=== PATIENT | female | born 1980 | race Caucasian/White ===

== ENCOUNTER 2018-02-10 16:59 | Emergency (ER) | payer OTHER ==
[~2018-02-10] VITALS: Ht 162.6 cm; Wt 70.2 kg
[~2018-02-10 16:59] MED LIST: B-COCAP2 PO; MECL-72 PO; [UNRECOGNIZED DRUG - OTHER] PO
[2018-02-10 17:13] VITALS: Ht 162.6 cm; Wt 70.2 kg
[2018-02-10] MEDS ORDERED: CEFTRIAXONE SOD INJ 1 GM ADDVIAL IV STA (17:59)
[2018-02-10] MEDS ORDERED: MoRPHine SULFATE 4 MG/ML 1 ML CARP\\VIAL IV STA (17:59)
[2018-02-10] MEDS ORDERED: ACETAMINOPHEN 500 MG TAB PO STA (17:59)
[2018-02-10] MEDS ORDERED: METOCLOPRAMIDE HCL INJ 5 MG/ML 2 ML VIAL IV. STA (17:59)
[2018-02-10] MEDS ORDERED: SODIUM CHLORIDE 0.9% 1000ML 1,000 ML IV STA ×2 (17:59→18:33)
--- NOTE | 2018-02-10 18:09 | EMERGENCY ROOM VISIT NOTE ---
History Report prepared by Kinjal: Roberto Stearns Under the Supervision of: Dr. Preet Hooker M.D. First contact with patient: 17:50 Chief Complaint: FLANK PAIN Stated Complaint: 22WKS , DX WITH KIDNEY INFECTION, SX WORSE History of Present Illness The patient is a 37 year old white female with a past medical history of anxiety , migraines, gall blader surgery and a current of 22 weeks who presents to the ED with a cc of constant right flank pain beginning 2-3 days ago which is described as a sharp pain which is relieved with Tylenol. Positive nausea and vomiting. Negative recent trauma, recent falls, recent heavy lifting , recent strain, and vaginal bleeding. She is taking vitamins, and she had a recent normal Ultrasound. This is her third , and she has two living children. She was seen at her [facility] recently and was put on Cipro. No prior C-sections. Source of History: patient Onset: 2-3 days ago Position: other (right flank) Quality: sharp Timing: constant Modifying Factors (Relieving): tylenol Associated Symptoms: + nausea, + vomiting Review of Systems See HPI for pertinent positives and negatives. A total of ten systems were reviewed and were otherwise negative. Past Medical & Surgical Medical Problems: (1) Anxiety (2) Migraine Family History Diabetes mellitus Heart disease Hypertension Seizures Social History Smoking Status: Never Smoker Drug Use: none Marital Status: Housing Status: lives with family Current/Historical Medications Scheduled Multivit/Min/Iron/Fol Ac/Pren ( Vitamin), 1 TAB PO DAILY Scheduled PRN Metoclopramide (Reglan), 10 MG PO Q6H PRN for Nausea Allergies Coded Allergies: Tramadol (Verified Allergy, Severe, SEIZURES, 04/02/14) Physical Exam Vital Signs Date Time Temp Pulse Resp B/P (MAP) Pulse Ox O2 Delivery O2 Flow Rate FiO2 02/10/18 20:58 36.9 112 16 109/72 100 02/10/18 20:55 112 16 109/72 100 Room Air 02/10/18 20:11 105 27 109/69 98 Room Air 02/10/18 19:18 103 02/10/18 19:00 106 20 118/73 96 Room Air 02/10/18 17:13 36.9 117 18 98/69 96 Room Air Physical Exam GENERAL: Awake, alert, well-appearing, NAD, wearing glasses HENT: Normocephalic, atraumatic. EYES: Normal conjunctiva. Sclera non-icteric. PERRL. No anisocoria. NECK: Supple. No nuchal rigidity. FROM. RESPIRATORY: CTAB, no rhonchi, wheezing, crackles CARDIAC: RRR, no MRG ABDOMEN: Right sided CVA TTP. Fundal height is superior to the umbilicus. Negative obturator and psoas. Soft, NTND, BS+ MSK: No chest wall TTP, no LE edema NEURO: GCS 15, CN 2-12 intact, moves all 4s on command SKIN: No rash or jaundice noted. Medical Decision & Procedures ER Provider Diagnostic Interpretation: Radiology results as stated below per my review and radiologist interpretation: RENAL ULTRASOUND CLINICAL HISTORY: R sided flank pain, , hematuria, dysuria COMPARISON STUDY: CT of the abdomen and pelvis June 01, 2010 and right upper quadrant ultrasound February 04, 2011. TECHNIQUE: Sonography of the kidneys and the urinary bladder was performed. FINDINGS: The right kidney measures 12 x 5.5 x 5.4 cm and the left kidney measures 10.9 x 5.6 x 5.3 cm. There is no hydronephrosis. A 5 mm echogenic focus within the right kidney could reflect a nonobstructing calculus. However, this could be artifactual. Neither ureteral jet was identified. The bladder was underdistended. Intrauterine gestation was noted with heart rate of 153 bpm. Please note that a dedicated ultrasound was not performed. IMPRESSION: 1. No hydronephrosis. 2. Possible 5 mm nonobstructing right renal calculus. 3. Normal heart rate of 153 bpm. Please note that a dedicated ultrasound was not performed. Electronically signed by: Remi Arizmendi M.D. 02/10/2018 8:03 PM Dictated Date/Time: 02/10/2018 8:01 PM Laboratory Results 02/10/18 18:22 Red Blood Count 3.43, Mean Corpuscular Volume 97.4, Mean Corpuscular Hemoglobin 33.5, Mean Corpuscular Hemoglobin Concent 34.4, Mean Platelet Volume 9.2, Neutrophils (%) (Auto) 85.5, Lymphocytes (%) (Auto) 6.0, Monocytes (%) (Auto) 8.1, Eosinophils (%) (Auto) 0.0, Basophils (%) (Auto) 0.1, Neutrophils # (Auto) 11.65, Lymphocytes # (Auto) 0.82, Monocytes # (Auto) 1.11, Eosinophils # (Auto) 0.00, Basophils # (Auto) 0.02 02/10/18 18:22 Test 02/10/18 18:22 02/10/18 18:40 White Blood Count 13.64 K/uL (4.8-10.8) Red Blood Count 3.43 M/uL (4.2-5.4) Hemoglobin 11.5 g/dL (12.0-16.0) Hematocrit 33.4 % (37-47) Mean Corpuscular Volume 97.4 fL (80-100) Mean Corpuscular Hemoglobin 33.5 pg (25-34) Mean Corpuscular Hemoglobin Concent 34.4 g/dl (32-36) Platelet Count 296 K/uL (130-400) Mean Platelet Volume 9.2 fL (7.4-10.4) Neutrophils (%) (Auto) 85.5 % Lymphocytes (%) (Auto) 6.0 % Monocytes (%) (Auto) 8.1 % Eosinophils (%) (Auto) 0.0 % Basophils (%) (Auto) 0.1 % Neutrophils # (Auto) 11.65 K/uL (1.4-6.5) Lymphocytes # (Auto) 0.82 K/uL (1.2-3.4) Monocytes # (Auto) 1.11 K/uL (0.11-0.59) Eosinophils # (Auto) 0.00 K/uL (0-0.5) Basophils # (Auto) 0.02 K/uL (0-0.2) RDW Standard Deviation 48.7 fL (36.4-46.3) RDW Coefficient of Variation 13.7 % (11.5-14.5) Immature Granulocyte % (Auto) 0.3 % Immature Granulocyte # (Auto) 0.04 K/uL (0.00-0.02) Anion Gap 8.0 mmol/L (3-11) Est Creatinine Clear Calc Drug Dose 106.3 ml/min Estimated GFR () 128.0 Estimated GFR (Non- 110.4 BUN/Creatinine Ratio 16.2 (10-20) Calcium Level 8.7 mg/dl (8.5-10.1) Total Bilirubin 0.6 mg/dl (0.2-1) Direct Bilirubin 0.2 mg/dl (0-0.2) Aspartate Amino Transf (AST/SGOT) 13 U/L (15-37) Alanine Aminotransferase (ALT/SGPT) 18 U/L (12-78) Alkaline Phosphatase 86 U/L (45-117) Total Protein 7.5 gm/dl (6.4-8.2) Albumin 2.9 gm/dl (3.4-5.0) Lipase 255 U/L (73-393) Human Chorionic Gonadotropin, Qual POS (NEG) Urine Color DK YELLOW Urine Appearance CLEAR (CLEAR) Urine pH 5.0 (4.5-7.5) Urine Specific [place] 1.044 (1.000-1.030) Urine Protein TRACE (NEG) Urine Glucose (UA) NEG (NEG) Urine Ketones 1+ (NEG) Urine Occult Blood 3+ (NEG) Urine Nitrite POS (NEG) Urine Bilirubin NEG (NEG) Urine Urobilinogen NEG (NEG) Urine Leukocyte Esterase SMALL (NEG) Urine WBC (Auto) 10-30 /hpf (0-5) Urine RBC (Auto) 5-10 /hpf (0-4) Urine Hyaline Casts (Auto) /lpf (0-5) Urine Epithelial Cells (Auto) >30 /lpf (0-5) Urine Bacteria (Auto) NEG (NEG) Urine Renal Epithelial Cells /lpf (0-5) Urine Pathogenic Casts /lpf (0) Urine Yeast (Auto) (NONE PRSENT) Laboratory results reviewed by me Medications Administered Medications (Trade) Dose Ordered Sig/Hodan Route Start Time Stop Time Status Last Admin Dose Admin Sodium Chloride 1,000 ml @ 999 mls/hr Q1H1M STAT IV 02/10/18 17:59 02/10/18 18:59 DC 02/10/18 18:44 999 MLS/HR Acetaminophen (Tylenol Tab) 1,000 mg NOW STAT PO 02/10/18 17:59 02/10/18 18:00 DC 02/10/18 18:45 1,000 MG Metoclopramide HCl (Reglan Inj) 10 mg NOW STAT IV. 02/10/18 17:59 02/10/18 18:00 DC 02/10/18 18:44 10 MG Ceftriaxone Sodium (Rocephin Inj) 1 gm NOW STAT IV 02/10/18 17:59 02/10/18 18:00 DC 02/10/18 18:44 1 GM Morphine Sulfate (MoRPHine SULFATE INJ) 4 mg NOW STAT IV 02/10/18 17:59 02/10/18 18:00 DC 02/10/18 18:44 4 MG Sodium Chloride 1,000 ml @ 999 mls/hr Q1H1M STAT IV 02/10/18 18:33 02/10/18 19:33 DC 02/10/18 18:45 999 MLS/HR Sodium Chloride 500 ml @ 999 mls/hr Q31M STAT IV 02/10/18 20:21 02/10/18 20:51 DC 02/10/18 20:21 999 MLS/HR ECG Per My Interpretation Indication: abdominal pain Rate (beats per minute): 108 Findings: T-wave inversion (lead 3), other (normal intervals and normal axis) ED Course 1750: The patient was evaluated in room C5. A complete history and physical exam was performed. 1949: Her pain has improved. 2001: I discussed the patient's case with Dr. Mckee - EDGER MACHINE OPERATOR, and he recommended outpatient follow uo, and to call for a follow up appointment tomorrow. 2018: She is feeling better, and she is a little tachycardic. She is going to get more fluids then go home. Medical Decision Nursing notes reviewed. Ancillary studies and prior records reviewed. The patient is a 37 year old white female with a past medical history of anxiety , migraines, gall blader surgery and a current of 22 weeks who presents to the ED with a cc of constant right flank pain beginning 2-3 days ago which is described as a sharp pain which is relieved with Tylenol. Differential diagnosis: Etiologies such as appendicitis, diverticulitis, PUD, biliary pathology, UTI, pancreatitis, obstruction, mesenteric ischemia, aortic pathology, infections, inflammatory bowel disease, renal colic, as well as others were entertained. Patient was seen and evaluated the bedside. Patient is currently 22 weeks and this is her third . Patient was seen and evaluated in OB clinic yesterday. The patient was prescribed Cipro for a presumed kidney infection. The patient has had persistent right-sided flank pain. Patient is also had associated nausea and vomiting. On exam the patient does have right-sided CVA TTP. The patient does not have any abdominal discomfort. Fundal height is above the umbilicus. Patient did have blood work completed along with EKG, urinalysis. Patient was also given medications for symptom control. Patient's blood work shows a mild white count of 13,000 with a left shift. Patient has normal kidney function. No elevations in LFTs or lipase. Lecture lites are within normal limits. Patient's urinalysis is consistent likely with infection. Patient was given Rocephin IV. Given the patient's blood in the urine I did obtain an ultrasound to further evaluate the kidneys. There is no hydronephrosis there is a likely 5 mm nonobstructing stone within the kidney. I did explain the findings to the patient and the family member at bedside. The heart tones were noted to be in the 150s. Patient also did receive IV fluids as well as antiemetics and pain control. Patient was feeling much improved. The patient looked much improved. Patient still had some mild tachycardia. She was given an additional 500 cc bolus. We did discuss about continuing clear liquids bland diet and to follow-up with OB/ [facility]. Patient was instructed to make a phone call tomorrow for a follow-up appointment. I did discuss case with the on-call EDGER MACHINE OPERATOR who agreed with the current management plan of care. Patient was deemed suitable for outpatient follow-up treatment at this time. Patient was given strict follow-up, discharge, and return precautions. All questions were answered. Patient was deemed suitable for outpatient follow-up at this time. Patient agreed with the plan of care and was safely discharged home. Medication Reconcilliation Current Medication List: was personally reviewed by me Blood Pressure Screening Patient's blood pressure: Normal blood pressure Consults Time Called: 1950 Consulting Physician: Dr. Mckee - EDGER MACHINE OPERATOR Returned Call: 2001 I discussed the patient's case with Dr. Mckee - EDGER MACHINE OPERATOR, and he recommended outpatient follow uo, and to call for a follow up appointment tomorrow. Impression Primary Impression: Pyelonephritis Additional Impressions: Right flank pain Anemia Scribe Attestation The scribe's documentation has been prepared under my direction and personally reviewed by me in its entirety. I confirm that the note above accurately reflects all work, treatment, procedures, and medical decision making performed by me. Departure Information Dispostion Home / Self-Care Prescriptions Metoclopramide (Reglan) 10 Mg Tab 10 MG PO Q6H Y for Nausea, #9 TAB Prov: Preet Hooker M.D. 02/10/18 Referrals Peterson Lr M.D. (PCP) Patient Instructions My [facility], Pyelonephritis Dc Additional Instructions Please return to the emergency department if you have worsening or recurrent symptoms not amenable to at-home treatment. Please call for a follow-up appointment with her primary care physician. Please take your medications as prescribed. If you have other concerns and/or complaints please feel free to also call your primary care physician's office or return the ED for further evaluation, management, and treatment. You received narcotic or benzodiazepene medication while in the emergency room today. This is an addictive medication that may cause drowziness as well as constipation. Do not drive, operate heavy machinery, or drink alcohol under the influence of this medication. You may take tylenol 1000 mg every 6 hours as needed for pain/fever unless told by your physician to not take it or have liver problems. For your nausea you may take the meclizine, Reglan, or Benadryl. Please take one at a time. Please call the EDGER MACHINE OPERATOR office for a follow-up appointment. Please state that he was seen in the emergency department and that after discussion between the ER physician and Dr. Mckee they wanted you to have a follow-up appointment later this week if possible. Take your medications as prescribed. If taking an antibiotic consider taking a probiotic and/or eating yogurt, but at the least, please take with food as it can cause upset stomach. You have been examined and treated today on an emergency basis only. This is not a substitute for, or an effort to provide, complete comprehensive medical care. It is impossible to recognize and treat all injuries or illnesses in a single emergency department visit. It is therefore important that you follow up closely with [facility], your PCP, and/or your specialist(s). Call as soon as possible for an appointment. Thank you for your time and consideration. I look forward to speaking with you again soon. Please don't hesitate to call us if you have any questions. Problem Qualifiers Additional Impressions: Weeks of gestation: 22 weeks Qualified Codes: Z3A.22 - 22 weeks gestation of Anemia Anemia type: unspecified type Qualified Codes: D64.9 - Anemia, unspecified
[2018-02-10] MEDS ORDERED: PRENTAB26 PO (18:10)
[2018-02-10 18:57] LABS: BASO % 0.1 %; BASO ABS # 0.02 K/uL (0-0.2); HEMATOCRIT 33.4 % (37-47); HEMOGLOBIN 11.5 g/dL (12.0-16.0); IG# 0.04 K/uL (0.00-0.02); LYMPH ABS # 0.82 K/uL (1.2-3.4); MEAN CELL VOLUME 97.4 fL (80-100); MEAN CORPUSCULAR HEMOGLOBIN 33.5 pg (25-34); MEAN CORPUSCULAR HGB CONC 34.4 g/dl (32-36); MEAN PLATELET VOLUME 9.2 fL (7.4-10.4); MONO % 8.1 %; MONO ABS # 1.11 K/uL (0.11-0.59); NEUT % 85.5 %; NEUT ABS # 11.65 K/uL (1.4-6.5); PLATELET COUNT 296 K/uL (130-400); RED CELL DISTRIBUTION WIDTH CV 13.7 % (11.5-14.5); RED CELL DISTRIBUTION WIDTH SD 48.7 fL (36.4-46.3); WHITE BLOOD COUNT 13.64 K/uL (4.8-10.8)
[2018-02-10 19:16] LABS: ALBUMIN 2.9 gm/dl (3.4-5.0); CALCIUM 8.7 mg/dl (8.5-10.1); CREATININE 0.69 mg/dl (0.60-1.20); POTASSIUM 3.5 mmol/L (3.5-5.1); TOTAL PROTEIN 7.5 gm/dl (6.4-8.2)
--- NOTE | 2018-02-10 20:04 | DIAGNOSTIC IMAGING REPORT ---
RENAL ULTRASOUND CLINICAL HISTORY: R sided flank pain, , hematuria, dysuria COMPARISON STUDY: CT of the abdomen and pelvis June 01, 2010 and right upper quadrant ultrasound February 04, 2011. TECHNIQUE: Sonography of the kidneys and the urinary bladder was performed. FINDINGS: The right kidney measures 12 x 5.5 x 5.4 cm and the left kidney measures 10.9 x 5.6 x 5.3 cm. There is no hydronephrosis. A 5 mm echogenic focus within the right kidney could reflect a nonobstructing calculus. However, this could be artifactual. Neither ureteral jet was identified. The bladder was underdistended. Intrauterine gestation was noted with heart rate of 153 bpm. Please note that a dedicated ultrasound was not performed. IMPRESSION: 1. No hydronephrosis. 2. Possible 5 mm nonobstructing right renal calculus. 3. Normal heart rate of 153 bpm. Please note that a dedicated ultrasound was not performed. Electronically signed by: Remi Arizmendi M.D. 02/10/2018 8:03 PM Dictated Date/Time: 02/10/2018 8:01 PM
[2018-02-10] MEDS ORDERED: SODIUM CHLORIDE 0.9% 500ML 500 ML IV STA (20:21)
[2018-02-10] MEDS ORDERED: METO-157 PO (20:39)
[2018-02-10 20:58] VITALS: BP 109/72; PULSE 112; TEMP 36.9; O2SAT 100
== END 2018-02-10 20:58 | disposition home or self-care (01) ==
LOC: C.EDB 17:00 → C.EDC 20:58
DX: O23.02 Infections of kidney in pregnancy, second trimester (principal); O99.012 Anemia complicating pregnancy, second trimester; O99.112 Other diseases of the blood and blood-forming organs and certain disorders involving the immune mechanism complicating pregnancy, second trimester; Z3A.22 22 weeks gestation of pregnancy; Z88.6 Allergy status to analgesic agent

== ENCOUNTER 2020-06-12 11:19 | Inpatient (IN) ==
--- OUTSIDE RECORDS SUMMARY | 2020-06-12 11:22 | External Medical Summary | Continuity of Care Document ---
:1980 Author Name Ced Quiroz, Provider Address Unavailable Unavailable , Care Team Providers Name Role Phone Guicho Quiroz, Nader Whitman Unavailable [email or web address], [email or web address] Unavailable Unavailable Unavailable Unavailable Unavailable Problems Acute cholecystitis (575.0) (K81.0) Allergies and Adverse Reactions Allergy history not documented Medications Hydrocodone-Acetaminophen 5-500 MG TABS; TAKE 1 TO 2 TABLETS EVERY 6 HOURS NEEDED FOR PAIN. Gabriella Lindo Start: 07-Feb-2011 Quantity: 30 Refills: 0 Procedures Procedures not documented Immunizations Immunizations not documented Plan of Treatment Planned Observations Planned Goals not documented Results No Known Results Results not documented Encounters Appointment; Zachariah [email or web address], Nursing Station 19-Aug-2018 14:00 Encounter Diagnosis: Problem not documented
[2020-06-12] MEDS ORDERED: LORazepam 0.5 MG/1 ML VIAL IV STA (11:38)
[2020-06-12] MEDS ORDERED: LABETALOL HCL IV 5 MG/ML 20ML IV STA ×3 (11:38→13:33)
[2020-06-12] MEDS ORDERED: ACETAMINOPHEN 500 MG TAB PO STA (11:38)
--- NOTE | 2020-06-12 11:43 | Emergency Department Note ---
Impression & Plan Hypertension, Hypokalemia, Tachycardia, Hypomagnesemia, Acute dehydration ED Provider Note NAME: CHAD BAUM AGE: 39 SEX: F : 1980 ARRIVES VIA: Walk-In INFORMANT: [Patient] ED PROVIDER(S): [Lonnie Lee MD] CHIEF COMPLAINT: Shaky, high blood pressure HISTORY OF PRESENT ILLNESS: The patient is a 39-year-old female who presents to the ED with complaints of fatigue, shakiness, hot flashes, sweats and dizziness. The patient states that for months, she has had episodes like mentioned above. The numbers of episodes have been increasing. She had an episode yesterday, she started with an episode this morning that has been ongoing throughout the day. She has had several hours of symptoms now. She went to [facility] and was referred to the ED. Her blood pressure was high at [facility]. Patient denies any chest pain or shortness of breath. There has been no fever or urinary complaints. No vomiting or diarrhea. The patient does not have any diagnosis of high blood pressure. She was told that her pressure was high at her doctor's office and that she should come to the ED as it was a critical value. REVIEW OF SYSTEMS: See HPI for pertinent positives and negatives. A total of ten systems were reviewed and were otherwise negative. PMHx/PSHx: See Below SOCIAL HISTORY: See Below. PHYSICAL EXAM: GENERAL: Patient is in no acute distress. HEENT: No acute trauma, normocephalic atraumatic, mucous membranes moist, no nasal congestion, no scleral icterus. NECK: No stridor, no adenopathy, no meningismus, trachea is midline. LUNGS: Clear to auscultation bilaterally, no wheeze, no rhonchi, breath sounds equal. HEART: Tachycardic, regular rhythm, no murmurs. ABDOMEN: Soft, nontender, bowel sounds positive, no hernias, no peritonitis. EXTREMITIES: No cyanosis or edema, full range of motion of all the joints without pain or difficulty, no signs for acute trauma. NEUROLOGIC: Oriented x 3, no acute motor or sensory deficits, no focal weakness. Extremity tremor noted. SKIN: No rash, no jaundice, no diaphoresis. DIFFERENTIAL DIAGNOSIS: Infection, dehydration, metabolic abnormality, hypo/hyperglycemia, hyperthyroidism, hypertensive emergency, sepsis, bacteremia, electrolyte disturbance, anemia, hypoxia, cardiac sources, intracerebral event, toxicologic, neurologic, as well as other pathologies. EMERGENCY DEPARTMENT COURSE/PROCEDURES: ECG: Indication was tachycardia. The ECG shows a sinus tachycardia with a rate of [address] depression in a few of the anterior and lateral leads. This ST change appears nonspecific. There are no PVCs, there is no ST elevation. The QTc is 421. Continuous Cardiac Monitoring: An order was placed for continuous cardiac monitoring. The monitor shows a rate of 96 with normal sinus rhythm. MEDICAL DECISION MAKING: There is no leukocytosis or concerning anemia, in fact, the hemoglobin was actually high at 17. There was a normal platelet count. Potassium was low at 2.9. No kidney failure. Magnesium was low at 1.2. There were a few subtle liver enzyme elevations. The patient appeared to be in a euthyroid state. testing was negative. ECG showed a sinus tachycardia, no acute ischemia. Cardiac enzyme testing x1 is not consistent with acute cardiac injury. Lactic acid level was elevated at 3.7, this could be consistent with infection or possibly dehydration. Chest film did not show pneumonia or CHF. Urinalysis did not show any evidence for infection, some contamination was seen. On my exam, the patient was tachycardic and hypertensive, there were no focal neurologic findings but she did have some extremity tremor. The patient received IV labetalol. She received 3 doses of this medication with some decrease in her heart rate and blood pressure. She received IV saline, 1 L. She was given IV and oral magnesium, she was given IV potassium. She received IV Ativan and oral Tylenol. The patient is still tachycardic and still hypertensive. She does feel better though in general. I do think hospitalization would be warranted to control her blood pressure, to control her tachycardia, to correct her electrolyte imbalance. The patient was told the results of her testing, I did speak with case management. The on-call hospitalist was consulted. Of note, during the end of the patient's ED stay just prior to her transfer upstairs, the patient admitted to the hospitalist that she has been drinking alcohol heavily and that she has not had much to drink in the last couple of days. It was at this point that alcohol withdrawal as a cause her presentation was thought likely. As she does have some small children at home, the manager rn case have been involved and are going to place a referral to [facility]. Past Med/Surg History Medical History Anxiety History of narcotic addiction Migraine Surgical History History of dental surgery History of laparoscopic cholecystectomy Family History (Updated 06/12/20 @ 15:42 by Delicia Cerrato PA-C) Grandfather (Paternal) Diabetes Grandmother (Maternal) Diabetes Social History Smoking Status: Never smoker Second Hand Exposure: No; Do You Dip or Chew Tobacco: No; Tobacco Cessation Education Requested by Patient: No Hx Alcohol Use: Yes Alcohol type: hard liquor Alcohol type Comment: and pt split 1 pint of liquor/week Alcohol Intake Frequency: 4 or More x per/Week Alcohol Intake Frequency Comment: 2-3 alcoholic beverages approx q. other day Hx Substance Use: No Preferred Language: Vietnamese Communication Ability: Effective [employer] Required: No Beliefs That Will Affect Care: None marital status: Current Living Situation: Spouse and Family Feels Safe at Home: Yes Safety Concerns: Feels Safe At This Time Allergies Allergies Allergy/AdvReac Type Severity Reaction Status Date / Time tramadol AdvReac Severe SEIZURES Verified 06/12/20 13:02 Home Meds Home Medications Medication Instructions Recorded Confirmed No Known Home Medications 06/12/20 06/12/20 Results & Data (ED) Vital Signs Vital Signs - 24 hr 06/12/20 11:22 06/12/20 11:33 06/12/20 11:36 Temperature 37.6 C H Temperature Source Oral Pulse Rate 156 H 148 H 135 H Pulse Rate [Left Finger] Pulse Rate from SpO2 Sensor Respiratory Rate 20 35 H 16 Blood Pressure 196/121 H 185/157 H Blood Pressure [Right Arm] Blood Pressure Mean 146 165 Blood Pressure Mean [Right Arm] Pulse Oximetry 100 Oxygen Delivery Method Room Air Sepsis Recent Fever Within 48 Hours No Sepsis New/Unexplained Change in Mental Status N/A Sepsis Action Taken by Nursing No Action Required 06/12/20 11:38 06/12/20 11:40 06/12/20 11:45 Temperature Temperature Source Pulse Rate 140 H 141 H Pulse Rate [Left Finger] 138 H Pulse Rate from SpO2 Sensor Respiratory Rate 22 24 19 Blood Pressure 164/139 H Blood Pressure [Right Arm] 185/157 H Blood Pressure Mean 144 Blood Pressure Mean [Right Arm] 166 Pulse Oximetry 98 Oxygen Delivery Method Sepsis Recent Fever Within 48 Hours Sepsis New/Unexplained Change in Mental Status Sepsis Action Taken by Nursing 06/12/20 11:50 06/12/20 12:00 06/12/20 12:01 Temperature Temperature Source Pulse Rate 128 H 130 H 130 H Pulse Rate [Left Finger] Pulse Rate from SpO2 Sensor Respiratory Rate 23 43 H 25 H Blood Pressure 189/144 H Blood Pressure [Right Arm] Blood Pressure Mean 167 Blood Pressure Mean [Right Arm] Pulse Oximetry Oxygen Delivery Method Sepsis Recent Fever Within 48 Hours Sepsis New/Unexplained Change in Mental Status Sepsis Action Taken by Nursing 06/12/20 12:10 06/12/20 12:20 06/12/20 12:22 Temperature Temperature Source Pulse Rate 112 H 113 H 119 H Pulse Rate [Left Finger] Pulse Rate from SpO2 Sensor 111 H 115 H Respiratory Rate 21 20 24 Blood Pressure 166/133 H Blood Pressure [Right Arm] Blood Pressure Mean 137 Blood Pressure Mean [Right Arm] Pulse Oximetry 98 96 Oxygen Delivery Method Sepsis Recent Fever Within 48 Hours Sepsis New/Unexplained Change in Mental Status Sepsis Action Taken by Nursing 06/12/20 12:26 06/12/20 12:30 06/12/20 12:31 Temperature Temperature Source Pulse Rate 112 H 110 H 110 H Pulse Rate [Left Finger] Pulse Rate from SpO2 Sensor 110 H 109 H 110 H Respiratory Rate 22 25 H 24 Blood Pressure 160/127 H 164/123 H Blood Pressure [Right Arm] Blood Pressure Mean 140 137 Blood Pressure Mean [Right Arm] Pulse Oximetry 99 98 98 Oxygen Delivery Method Sepsis Recent Fever Within 48 Hours Sepsis New/Unexplained Change in Mental Status Sepsis Action Taken by Nursing 06/12/20 12:40 06/12/20 12:45 06/12/20 12:50 Temperature Temperature Source Pulse Rate 114 H 110 H 114 H Pulse Rate [Left Finger] Pulse Rate from SpO2 Sensor 117 H 111 H 118 H Respiratory Rate 18 23 19 Blood Pressure 156/127 H Blood Pressure [Right Arm] Blood Pressure Mean 138 Blood Pressure Mean [Right Arm] Pulse Oximetry 99 96 98 Oxygen Delivery Method Sepsis Recent Fever Within 48 Hours Sepsis New/Unexplained Change in Mental Status Sepsis Action Taken by Nursing 06/12/20 13:00 06/12/20 13:01 06/12/20 13:10 Temperature Temperature Source Pulse Rate 116 H 112 H 106 H Pulse Rate [Left Finger] Pulse Rate from SpO2 Sensor 116 H 109 H 104 H Respiratory Rate 23 23 28 H Blood Pressure 168/128 H Blood Pressure [Right Arm] Blood Pressure Mean 142 Blood Pressure Mean [Right Arm] Pulse Oximetry 99 98 98 Oxygen Delivery Method Room Air Sepsis Recent Fever Within 48 Hours Sepsis New/Unexplained Change in Mental Status Sepsis Action Taken by Nursing 06/12/20 13:15 06/12/20 13:20 06/12/20 13:30 Temperature Temperature Source Pulse Rate 104 H 101 H 100 H Pulse Rate [Left Finger] Pulse Rate from SpO2 Sensor 103 H 101 H 103 H Respiratory Rate 27 H 19 24 Blood Pressure 173/132 H 172/130 H Blood Pressure [Right Arm] Blood Pressure Mean 137 142 Blood Pressure Mean [Right Arm] Pulse Oximetry 98 99 98 Oxygen Delivery Method Sepsis Recent Fever Within 48 Hours Sepsis New/Unexplained Change in Mental Status Sepsis Action Taken by Nursing 06/12/20 13:31 06/12/20 13:38 06/12/20 13:40 Temperature Temperature Source Pulse Rate 98 H 102 H 99 H Pulse Rate [Left Finger] Pulse Rate from SpO2 Sensor 98 H 101 H 101 H Respiratory Rate 23 28 H 18 Blood Pressure 154/124 H Blood Pressure [Right Arm] Blood Pressure Mean 133 Blood Pressure Mean [Right Arm] Pulse Oximetry 98 99 100 Oxygen Delivery Method Sepsis Recent Fever Within 48 Hours Sepsis New/Unexplained Change in Mental Status Sepsis Action Taken by Nursing 06/12/20 13:45 06/12/20 13:46 06/12/20 13:50 Temperature Temperature Source Pulse Rate 106 H 100 H 104 H Pulse Rate [Left Finger] Pulse Rate from SpO2 Sensor 98 H 102 H 107 H Respiratory Rate 18 26 H 23 Blood Pressure 162/120 H Blood Pressure [Right Arm] Blood Pressure Mean 130 Blood Pressure Mean [Right Arm] Pulse Oximetry 100 100 95 Oxygen Delivery Method Sepsis Recent Fever Within 48 Hours Sepsis New/Unexplained Change in Mental Status Sepsis Action Taken by Nursing 06/12/20 14:00 06/12/20 14:01 06/12/20 14:10 Temperature Temperature Source Pulse Rate 101 H 102 H 96 H Pulse Rate [Left Finger] Pulse Rate from SpO2 Sensor 102 H 103 H 96 H Respiratory Rate 17 22 21 Blood Pressure 156/121 H Blood Pressure [Right Arm] Blood Pressure Mean 130 Blood Pressure Mean [Right Arm] Pulse Oximetry 100 99 98 Oxygen Delivery Method Sepsis Recent Fever Within 48 Hours Sepsis New/Unexplained Change in Mental Status Sepsis Action Taken by Nursing 06/12/20 14:15 06/12/20 14:20 06/12/20 14:30 Temperature Temperature Source Pulse Rate 106 H 96 H 108 H Pulse Rate [Left Finger] Pulse Rate from SpO2 Sensor 104 H 96 H 106 H Respiratory Rate 20 26 H 24 Blood Pressure 155/114 H 172/117 H Blood Pressure [Right Arm] Blood Pressure Mean 122 139 Blood Pressure Mean [Right Arm] Pulse Oximetry 100 97 100 Oxygen Delivery Method Sepsis Recent Fever Within 48 Hours Sepsis New/Unexplained Change in Mental Status Sepsis Action Taken by Nursing 06/12/20 14:31 06/12/20 14:40 06/12/20 14:45 Temperature Temperature Source Pulse Rate 103 H 97 H 104 H Pulse Rate [Left Finger] Pulse Rate from SpO2 Sensor 103 H 98 H 104 H Respiratory Rate 18 23 23 Blood Pressure 149/118 H Blood Pressure [Right Arm] Blood Pressure Mean 123 Blood Pressure Mean [Right Arm] Pulse Oximetry 99 100 98 Oxygen Delivery Method Sepsis Recent Fever Within 48 Hours Sepsis New/Unexplained Change in Mental Status Sepsis Action Taken by Alf Medications Current Medication List: was personally reviewed by me Laboratory Data Attestation: I reviewed the patient's lab results. Result diagrams: 06/12/20 11:46 06/12/20 15:35 Lab Results 06/12/20 06/12/20 06/12/20 Range/Units 11:46 11:46 11:46 WBC 10.05 (4.8-10.8) K/uL RBC 4.75 (4.2-5.4) M/uL Hgb 17.2 H (12.0-16.0) g/dL Hct 47.9 H (37-47) % MCV 100.8 H (80-100) fL MCH 36.2 H (25-34) pg MCHC 35.9 (32-36) g/dL RDW Std Deviation 48.4 H (36.4-46.3) fL RDW Coeff of Hanna 13.0 (11.5-14.5) % Plt Count 298 (130-400) K/uL MPV 9.6 (7.4-10.4) fL Immature Gran % (Auto) 0.2 % Neut % (Auto) 78.7 % Lymph % (Auto) 12.8 % [place] % (Auto) 7.9 % Eos % (Auto) 0.0 % Baso % (Auto) 0.4 % Neut # (Auto) 7.91 H (1.4-6.5) K/uL Lymph # (Auto) 1.29 (1.2-3.4) K/uL [place] # (Auto) 0.79 H (0.11-0.59) K/uL Eos # (Auto) 0.00 (0-0.5) K/uL Baso # (Auto) 0.04 (0-0.2) K/uL Immature Gran # (Auto) 0.02 (0.00-0.02) K/uL Sodium 137 (136-145) mmol/L Potassium 2.9 L (3.5-5.1) mmol/L Chloride 99 (98-107) mmol/L Carbon Dioxide 28 (21-32) mmol/L Anion Gap 10.0 (3-11) BUN 4 L (7-18) mg/dl Creatinine 0.81 (0.6-1.2) mg/dl Est Cr Clr Drug Dosing 79.7 ml/min Est GFR ( Amer) 105.3 Est GFR (Non-Af Amer) 90.8 BUN/Creatinine Ratio 5.5 L (10-20) Glucose 126 H (70-99) mg/dl Lactate 3.7 H* (0.4-2.0) mmol/L Calcium 10.5 H (8.5-10.1) mg/dl Magnesium 1.2 L (1.8-2.4) mg/dl Total Bilirubin 1.2 H (0.2-1) mg/dl AST 130 H (15-37) U/L ALT 58 (12-78) U/L Alkaline Phosphatase 100 (45-117) U/L Troponin I 0.016 (0-0.045) ng/ml Total Protein 8.5 H (6.4-8.2) gm/dl Albumin 3.8 (3.4-5.0) gm/dl Globulin 4.6 H (2.5-4.0) gm/dl Albumin/Globulin Ratio 0.8 L (0.9-2) TSH 1.030 (0.300-4.500) uIu/ml HCG, Qual (Negative) Urine Color Urine Appearance (Clear) Urine pH (4.5-7.5) Ur Specific Carbon (1.000-1.030) Urine Protein (Negative) Urine Glucose (UA) (Negative) Urine Ketones (Negative) Urine Blood (Negative) Urine Nitrite (Negative) Urine Bilirubin (Negative) Urine Urobilinogen (Negative) Ur Leukocyte Esterase (Negative) Urine WBC (Auto) (0-5) /hpf Urine RBC (Auto) (0-4) /hpf U Hyaline Cast (Auto) (0-5) /lpf U Epithel Cells (Auto) (0-5) /lpf Urine Bacteria (Auto) (Negative) 06/12/20 06/12/20 Range/Units 11:46 12:16 WBC (4.8-10.8) K/uL RBC (4.2-5.4) M/uL Hgb (12.0-16.0) g/dL Hct (37-47) % MCV (80-100) fL MCH (25-34) pg MCHC (32-36) g/dL RDW Std Deviation (36.4-46.3) fL RDW Coeff of Hanna (11.5-14.5) % Plt Count (130-400) K/uL MPV (7.4-10.4) fL Immature Gran % (Auto) % Neut % (Auto) % Lymph % (Auto) % [place] % (Auto) % Eos % (Auto) % Baso % (Auto) % Neut # (Auto) (1.4-6.5) K/uL Lymph # (Auto) (1.2-3.4) K/uL [place] # (Auto) (0.11-0.59) K/uL Eos # (Auto) (0-0.5) K/uL Baso # (Auto) (0-0.2) K/uL Immature Gran # (Auto) (0.00-0.02) K/uL Sodium (136-145) mmol/L Potassium (3.5-5.1) mmol/L Chloride (98-107) mmol/L Carbon Dioxide (21-32) mmol/L Anion Gap (3-11) BUN (7-18) mg/dl Creatinine (0.6-1.2) mg/dl Est Cr Clr Drug Dosing ml/min Est GFR ( Amer) Est GFR (Non-Af Amer) BUN/Creatinine Ratio (10-20) Glucose (70-99) mg/dl Lactate (0.4-2.0) mmol/L Calcium (8.5-10.1) mg/dl Magnesium (1.8-2.4) mg/dl Total Bilirubin (0.2-1) mg/dl AST (15-37) U/L ALT (12-78) U/L Alkaline Phosphatase (45-117) U/L Troponin I (0-0.045) ng/ml Total Protein (6.4-8.2) gm/dl Albumin (3.4-5.0) gm/dl Globulin (2.5-4.0) gm/dl Albumin/Globulin Ratio (0.9-2) TSH (0.300-4.500) uIu/ml HCG, Qual Negative (Negative) Urine Color Yellow Urine Appearance Turbid A (Clear) Urine pH 8.0 H (4.5-7.5) Ur Specific Carbon 1.011 (1.000-1.030) Urine Protein Negative (Negative) Urine Glucose (UA) Negative (Negative) Urine Ketones Negative (Negative) Urine Blood 1+ H (Negative) Urine Nitrite Negative (Negative) Urine Bilirubin Negative (Negative) Urine Urobilinogen Negative (Negative) Ur Leukocyte Esterase Negative (Negative) Urine WBC (Auto) 1-5 (0-5) /hpf Urine RBC (Auto) 0-4 (0-4) /hpf U Hyaline Cast (Auto) 1-5 (0-5) /lpf U Epithel Cells (Auto) >30 H (0-5) /lpf Urine Bacteria (Auto) Negative (Negative) Administered Medications Discontinued Medications Acetaminophen (Acetaminophen 500 Mg Tab) 1,000 mg PO NOW STA Stop: 06/12/20 11:39 Last Admin: 06/12/20 12:07 Dose: 1,000 mg Documented by: [id number] Sodium Chloride (Nss) 500 mls @ 999 mls/hr IV .Q31M DONOVAN Stop: 06/12/20 12:15 Last Infusion: 06/12/20 12:25 Dose: 0 mls/hr Documented by: [id number] Admin: 06/12/20 11:52 Dose: 999 mls/hr Documented by: [id number] Lorazepam (Ativan) 0.5 mg in 1 mls @ 1 mls/min IV NOW STA Stop: 06/12/20 11:39 Last Admin: 06/12/20 12:07 Dose: 1 mls/min Documented by: [id number] Sodium Chloride (Nss 1000ml) 500 mls @ 999 mls/hr IV .Q31M ONE Stop: 06/12/20 13:00 Last Infusion: 06/12/20 13:25 Dose: 0 mls/hr Documented by: [id number] Admin: 06/12/20 12:53 Dose: 999 mls/hr Documented by: [id number] Magnesium Sulfate/Dextrose (Magnesium Sulfate / D5w) 1 gm in 100 mls @ 100 ml s/hr IV Q1H DONOVAN Stop: 06/12/20 14:29 Last Infusion: 06/12/20 18:34 Dose: 0 mls/hr Documented by: [id number] Admin: 06/12/20 15:55 Dose: 100 mls/hr Documented by: [id number] Infusion: 06/12/20 14:01 Dose: 0 mls/hr Documented by: [id number] Admin: 06/12/20 12:52 Dose: 100 mls/hr Documented by: [id number] Potassium Chloride (K Derek / Wtr) 10 meq in 100 mls @ 100 mls/hr IV ONE ONE Stop: 06/12/20 13:29 Last Infusion: 06/12/20 14:01 Dose: 0 mls/hr Documented by: [id number] Admin: 06/12/20 12:51 Dose: 100 mls/hr Documented by: [id number] Multivitamins 10 ml/ Thiamine HCl 100 mg/ Folic Acid 1 mg/Sodium Chloride 1,011.2 mls @ 1,011.2 mls/hr IV .Q1H ONE Stop: 06/12/20 16:59 Last Admin: 06/12/20 17:16 Dose: 1,011.2 mls/hr Documented by: [id number] Lorazepam (Ativan) 1 mg in 2 mls @ 2 mls/min IV NOW STA Stop: 06/12/20 16:30 Last Admin: 06/12/20 17:16 Dose: 2 mls/min Documented by: [id number] Multivitamins 10 ml/ Thiamine HCl 100 mg/ Folic Acid 1 mg/Sodium Chloride 1,011.2 mls @ 1,011.2 mls/hr IV .Q1H ONE Stop: 06/12/20 17:28 Last Admin: 06/12/20 17:16 Dose: Not Given Documented by: [id number] Labetalol HCl (Labetalol Hcl Iv 5 Mg/Ml 20ml) 10 mg IV NOW STA Stop: 06/12/20 11:39 Last Admin: 06/12/20 12:06 Dose: 10 mg Documented by: [id number] Cosigned by: [id number] Labetalol HCl (Labetalol Hcl Iv 5 Mg/Ml 20ml) 10 mg IV NOW STA Stop: 06/12/20 12:31 Last Admin: 06/12/20 12:53 Dose: 10 mg Documented by: [id number] Cosigned by: [id number] Labetalol HCl (Labetalol Hcl Iv 5 Mg/Ml 20ml) 10 mg IV NOW STA Stop: 06/12/20 13:34 Last Admin: 06/12/20 14:03 Dose: 10 mg Documented by: [id number] Cosigned by: [id number] Magnesium Oxide (Magnesium Oxide 400 Mg Tab) 400 mg PO NOW STA Stop: 06/12/20 12:31 Last Admin: 06/12/20 12:51 Dose: 400 mg Documented by: [id number] Potassium Chloride (Potassium Chloride 20 Meq Tabcr) 40 meq PO NOW STA Stop: 06/12/20 15:22 Last Admin: 06/12/20 15:32 Dose: 40 meq Documented by: [id number] Imaging Data Radiologist's Impression: XR chest 1V portable CLINICAL HISTORY: weakness COMPARISON STUDY: 01/26/2014 FINDINGS: The cardiac and mediastinal contours are normal. There is no evidence of focal pulmonary consolidation. There is no evidence of failure. No pleural effusions are visualized.[ IMPRESSION: No active disease in the chest. Blood Pressure Blood Pressure Findings: Elevated blood pressure Blood Pressure Disposition: further management by hospitalist Discharge Plan Visit Data Chief Complaint: Referred by Doctor Stated Complaint: HIGH BLOOD PRESSURE ED Provider: Lonnie Lee Discharge Problem: Hypertension, Hypokalemia, Tachycardia, Hypomagnesemia, Acute dehydration Patient Disposition: Admitted As Inpatient Condition: Good Discharge Instructions Interventions: ED Discharge Assessment Last Done: 06/12/20 17:32 Discharge Problem: Hypertension Qualifiers: Hypertension type: unspecified Qualified Code(s): I10 - Essential (primary) hypertension
[2020-06-12] MEDS ORDERED: SODIUM CHLORIDE 0.9% 500 ML IV SCH (11:45)
[2020-06-12 11:54] LABS: Basophils # (auto) 0.04 K/uL (0-0.2); Basophils % (auto) 0.4 %; Hematocrit (blood only) 47.9 % (37-47); Hemoglobin 17.2 g/dL (12.0-16.0); Immature Granulocytes # (auto) 0.02 K/uL (0.00-0.02); Immature Granulocytes % (auto) 0.2 %; Lymphocytes # (auto) 1.29 K/uL (1.2-3.4); Lymphocytes % (auto) 12.8 %; Mean Corpuscular Hemoglobin 36.2 pg (25-34); Mean Corpuscular Hgb Conc 35.9 g/dL (32-36); Mean Corpuscular Volume 100.8 fL (80-100); Mean Platelet Volume 9.6 fL (7.4-10.4); Monocytes # (auto) 0.79 K/uL (0.11-0.59); Monocytes % (auto) 7.9 %; Neutrophils # (auto) 7.91 K/uL (1.4-6.5); Neutrophils % (auto) 78.7 %; Platelet Count 298 K/uL (130-400); RDW Standard Deviation 48.4 fL (36.4-46.3); Red Blood Count 4.75 M/uL (4.2-5.4); White Blood Count 10.05 K/uL (4.8-10.8)
--- NOTE | 2020-06-12 12:05 | XRay Report ---
XR chest 1V portable CLINICAL HISTORY: weakness COMPARISON STUDY: 01/26/2014 FINDINGS: The cardiac and mediastinal contours are normal. There is no evidence of focal pulmonary co nsolidation. There is no evidence of failure. No pleural effusions are visualized.[ IMPRESSION: No active disease in the chest. ACT 112: Negative or not required by law. Electronically signed by: Andrade Singh M.D. 06/12/2020 12:04 PM
[2020-06-12 12:14] LABS: Albumin Level 3.8 gm/dl (3.4-5.0); BUN Creatinine Ratio 5.5 (10-20); Calcium 10.5 mg/dl (8.5-10.1); Creatinine Clr Calc Pharmacy 79.7 ml/min; Est GFR (African American) 105.3; Est GFR (Non-African American) 90.8; Magnesium 1.2 mg/dl (1.8-2.4); Potassium 2.9 mmol/L (3.5-5.1)
[2020-06-12 12:24] LABS: Pregnancy Test, Serum Negative (Negative)
[2020-06-12 12:25] LABS: Albumin Globulin Ratio 0.8 (0.9-2); Bilirubin,Total 1.2 mg/dl (0.2-1); Globulin 4.6 gm/dl (2.5-4.0); Thyroid Stimulating Hormone 1.03 uIu/ml (0.300-4.500); Total Protein 8.5 gm/dl (6.4-8.2); Troponin I 0.016 ng/ml (0-0.045)
[2020-06-12] MEDS ORDERED: SODIUM CHLORIDE 0.9% 1000ML 500 ML IV ONE (12:30)
[2020-06-12] MEDS ORDERED: POTASSIUM CHLORIDE / WTR 10 MEQ/100 ML PLCT IV ONE (12:30)
[2020-06-12] MEDS ORDERED: MAGNESIUM OXIDE 400 MG TAB PO STA (12:30)
[2020-06-12 12:32] LABS: Appearance Urine Turbid (Clear); Bacteria Urine Automated Negative (Negative); Bilirubin Urine Negative (Negative); Blood Urine 1+ (Negative); Color Urine Yellow; Epithelial Cell Urine Auto >30 /lpf (0-5); Glucose Urine UA Negative (Negative); Ketones Urine Negative (Negative); Leukocyte Esterase Urine Negative (Negative); Nitrite Urine Negative (Negative); Protein Urine Negative (Negative); RBC Urine Automated 0-4 /hpf (0-4); Specific Gravity Urine 1.011 (1.000-1.030); Urobilinogen Urine Negative (Negative)
--- NOTE | 2020-06-12 12:34 | Electrocardiogram Report ---
Test Reason : Blood Pressure : / mmHG Vent. Rate : 142 BPM Atrial Rate : 142 BPM P-R Int : 122 ms QRS Dur : 068 ms QT Int : 274 ms P-R-T Axes : 056 044 022 degrees QTc Int : 421 ms Sinus tachycardia Borderline ECG When compared with ECG of 10-FEB-2018 18:36, HR has increased by 34 bpm Otherwise no significant change Confirmed by Mehran Friedman ([id number]) on 06/12/2020 12:34:09 PM Referred By: REFERRED SELF Confirmed By:Mehran Friedman
[2020-06-12] MEDS: MAGNESIUM SULFATE / D5W 1 GM/100 ML BAG IV SCH ×2 (12:52→15:55)
[2020-06-12] MEDS ORDERED: POTASSIUM CHLORIDE 20 MEQ TABCR PO STA (15:21)
--- NOTE | 2020-06-12 15:56 | History & Physical Report ---
Date of Service June 12, 2020 Assessment & Plan (1) Hypertensive urgency: (2) Tachycardia: (3) Alcohol withdrawal: This is a 39-year-old female who has no known significant past medical history who presents to ED at the recommendation of PCP. Since arriving to ED she does feel significantly improved. Upon arrival she did meet criteria for hypertensive urgency and was significantly tachycardic with heart rates in the 130s to 150s. She received 3 rounds of 10 mg of IV labetalol and current blood pressure upon my evaluation is 140s over 110s. She has significant lab abnormalities with potassium 2.9, mag 1.2, calcium 10.5, AST 130, total bilirubin 1.2, Lactic acid 3.7, H&H elevated at 17.2 and 47.9 with macrocytic indices, WBC 10.05. In ED she did receive 10 M EQ KCl IV, 1 g IV mag sulfate, 400 oral magnesium, 1 L IVF. possible etiology of patients above symptoms and severe electrolyte derangements are likely due to ETOH withdrawal reports splitting 750ml of vodka/week last drink last evening, prior to that 06/[address] on Gabapentin taper with active IV ativan seizure precautions tx HTN with prn labetalol Banana bag x 1 thiamine and folic acid supplementation (4) Lactic acidosis: LA 3.7 possibly secondary to underlying dehyrdation vs alcohol consumption do not feel related to sepsis/infection as pt is not exhibiting and infectious signs or symptoms repeat LA 4.0 - continue IVF and repeat @ 6p (5) Hypokalemia: Initially 2.9 received 10meq KCL IV in ED another 40meq KCL ordered PO repeat K now 3.3 (6) Hypomagnesemia: Mag 1.2 on arrival received 2g IV mag sulfate in ED repeat mag 2.1 (7) Elevated LFTs: T Bili 1.2, AST 130 likely in setting of ETOH use obtain Liver US (8) Acute dehydration: elevated H/H, pt reports poor po intake, lack of water consumption, increase in ETOH and caffeinated soda consumption Pt received 1 L IVF in ED with additional 1 L of Banana bag continue IVF 75cc/hr NS + 20meq KCL DVT ppx: SCD/TEDS Disposition: admit to PCU Follow up: PCP Dr. Lr upon discharge Pt was seen and examined in collaboration with Dr. Ulloa, please see addendum History of Present Illness Chief Complaint: Referred by PCP. Primary Care Provider: Peterson Lr MD This is a 39-year-old female who has no known significant past medical history who presents to ED at the recommendation of PCP. She was seen and evaluated by PCP today for acute appointment secondary to intermittent dizziness, tremulous and ill feeling. She was found to be significantly hypertensive and tachycardic and referred to ED for further evaluation. She states over the past several months, "since the pandemic," she has intermittently been having episodes where she feels dizzy and lightheaded like she could pass out, tremulous, Diaphoretic and overall ill feeling. Symptoms will last anywhere from 1 to 2 hours up to several hours before resolving on own. She had episode last evening which lasted 2 to 3 hours and she thought, "my blood sugar might be low." She ate ravioli's and some candy and started to feel better. She also states she had an alcoholic beverage with approximately 1 shot in it last evening as well. She woke up this morning and symptoms returned and therefore called PCP for further evaluation. These episodes been occurring over the past several months she feels they have been coming for frequently.She otherwise denies any recent illness, fever, chills, sweats, chest pain, shortness of breath, palpitations, nausea, vomiting, abdominal pain, diarrhea, melena, hematochezia, dysuria, increased urgency or frequency with urination.She denies any illicit drug use and does have a past medical history of narcotic abuse in 2010.She states she has been drinking alcohol, "more than I should." She admits to approximately drinking every other day 2-3 alcoholic beverages. Her and her go through 1 pint of liquor weekly.She denies any prior history of withdrawal but does elicit that she noticed symptoms occur the next day when she does not have a drink. Last drink was last evening 06/11 and prior to that was 06/09 where she had 3-4 drinks. Also secondary to the pandemic she feels she has not been eating much and has not been taking care of herself.She denies any prior history of hypertension and she is not on any prescription medications. Since arriving to ED she does feel significantly improved. Upon arrival she did meet criteria for hypertensive urgency and was significantly tachycardic with heart rates in the 130s to 150s. She received 3 rounds of 10 mg of IV labetalol and current blood pressure upon my evaluation is 140s over 110s. She has significant lab abnormalities with potassium 2.9, mag 1.2, calcium 10.5, AST 130, total bilirubin 1.2, Lactic acid 3.7, H&H elevated at 17.2 and 47.9 with macrocytic indices, WBC 10.05. In ED she did receive 10 M EQ KCl IV, 1 g IV mag sulfate, 400 oral magnesium, 1 L IVF. Allergies Allergy/AdvReac Type Severity Reaction Status Date / Time tramadol AdvReac Severe SEIZURES Verified 06/12/20 13:02 Home Medications Home Medications Medication Instructions Recorded Confirmed Type No Known Home Medications 06/12/20 06/12/20 History Past Med/Surg History Medical History Anxiety History of narcotic addiction Migraine Surgical History History of dental surgery History of laparoscopic cholecystectomy Family History (Updated 06/12/20 @ 15:42 by Delicia Cerrato PA-C) Grandfather (Paternal) Diabetes Grandmother (Maternal) Diabetes Social History Smoking Status: Never smoker Second Hand Exposure: No; Do You Dip or Chew Tobacco: No; Tobacco Cessation Education Requested by Patient: No Hx Alcohol Use: Yes Alcohol type: hard liquor Alcohol type Comment: and pt split 1 pint of liquor/week Alcohol Intake Frequency: 4 or More x per/Week Alcohol Intake Frequency Comment: 2-3 alcoholic beverages approx q. other day Hx Substance Use: No Preferred Language: Filipino Communication Ability: Effective Application Architect Required: No Beliefs That Will Affect Care: None marital status: Current Living Situation: Spouse and Family Feels Safe at Home: Yes Safety Concerns: Feels Safe At This Time Review of Systems Review of Systems: All systems reviewed & are unremarkable except as noted in HPI & below Physical Exam Physical Exam: Constitutional: WD/WN, vitals as above, NAD, sitting up in bed, pleasant, conversing easily Head: Normocephalic, Atraumatic Eyes: PERRL, conjunctivae normal, anicteric sclerae ENMT: external ear and nose normal, oropharynx normal Neck: trachea midline, no thyromegaly normal visual inspection Respiratory: normal respiratory effort, lungs clear to auscultation, no wheeze, rales, rhonchi. Normal insp/exp effort, no accessory muscle use Cardiovascular: tachycardic rate, regular rhythm, no murmur, no edema Vessels: no JVD or carotid bruit Chest: normal inspection of chest Abdomen: normal bowel sounds, soft, nontender, no hepatosplenomegaly Musculoskeletal: no cyanosis or clubbing, extremities motor strength 5/5 Skin: no rashes, warm and dry normal turgor Neurologic: PERRL, EOMI, accommodation nl, no face palsy, no dysarthria CN's II-XI intact bilaterally and moves all extremities Psychiatric: A+Ox3, euthymic affect Lymphatic: no cervical or axillary lymphadenopathy : deferred Results & Data Results & Data ([facility]) Vital Signs (Past 12 Hours) Vital Signs Temp Pulse Pulse Resp BP BP Pulse Ox 06/12/20 15:10 102 H 21 98 06/12/20 15:01 104 H 21 100 06/12/20 15:00 109 H 19 163/126 H 99 06/12/20 14:50 104 H 21 96 06/12/20 14:45 104 H 23 149/118 H 98 06/12/20 14:40 97 H 23 100 06/12/20 14:31 103 H 18 99 06/12/20 14:30 108 H 24 172/117 H 100 06/12/20 14:20 96 H 26 H 97 06/12/20 14:15 106 H 20 155/114 H 100 06/12/20 14:10 96 H 21 98 06/12/20 14:01 102 H 22 99 06/12/20 14:00 101 H 17 156/121 H 100 06/12/20 13:50 104 H 23 95 06/12/20 13:46 100 H 26 H 100 06/12/20 13:45 106 H 18 162/120 H 100 06/12/20 13:40 99 H 18 100 06/12/20 13:38 102 H 28 H 154/124 H 99 06/12/20 13:31 98 H 23 98 06/12/20 13:30 100 H 24 172/130 H 98 06/12/20 13:20 101 H 19 99 06/12/20 13:15 104 H 27 H 173/132 H 98 06/12/20 13:10 106 H 28 H 98 06/12/20 13:01 112 H 23 98 06/12/20 13:00 116 H 23 168/128 H 99 06/12/20 12:50 114 H 19 98 06/12/20 12:45 110 H 23 156/127 H 96 06/12/20 12:40 114 H 18 99 06/12/20 12:31 110 H 24 98 06/12/20 12:30 110 H 25 H 164/123 H 98 06/12/20 12:26 112 H 22 160/127 H 99 06/12/20 12:22 119 H 24 166/133 H 96 06/12/20 12:20 113 H 20 98 06/12/20 12:10 112 H 21 06/12/20 12:01 130 H 25 H 189/144 H 06/12/20 12:00 130 H 43 H 06/12/20 11:50 128 H 23 06/12/20 11:45 141 H 19 164/139 H 06/12/20 11:40 140 H 24 06/12/20 11:38 138 H 22 185/157 H 98 06/12/20 11:36 135 H 16 185/157 H 06/12/20 11:33 148 H 35 H 06/12/20 11:22 37.6 C H 156 H 20 196/121 H 100 Laboratory Results Short CBC 06/12/20 Range/Units 11:46 WBC 10.05 (4.8-10.8) K/uL Hgb 17.2 H (12.0-16.0) g/dL Hct 47.9 H (37-47) % Plt Count 298 (130-400) K/uL BMP 06/12/20 11:46 Sodium 137 Potassium 2.9 L Chloride 99 Carbon Dioxide 28 BUN 4 L Creatinine 0.81 Glucose 126 H Calcium 10.5 H Cardiac Enzymes 06/12/20 Range/Units 11:46 Troponin I 0.016 (0-0.045) ng/ml Liver Function 06/12/20 Range/Units 11:46 Total Bilirubin 1.2 H (0.2-1) mg/dl AST 130 H (15-37) U/L ALT 58 (12-78) U/L Alkaline Phosphatase 100 (45-117) U/L Albumin 3.8 (3.4-5.0) gm/dl Urine 06/12/20 Range/Units 12:16 Urine Color Yellow Urine Appearance Turbid A (Clear) Urine pH 8.0 H (4.5-7.5) Ur Specific [place] 1.011 (1.000-1.030) Urine Protein Negative (Negative) Urine Glucose (UA) Negative (Negative) Diagnostic Findings CXR: IMPRESSION: No active disease in the chest. Medications Administered Discontinued Medications Acetaminophen (Acetaminophen 500 Mg Tab) 1,000 mg PO NOW STA Stop: 06/12/20 11:39 Last Admin: 06/12/20 12:07 Dose: 1,000 mg Documented by: [id number] Sodium Chloride (Nss) 500 mls @ 999 mls/hr IV .Q31M DONOVAN Stop: 06/12/20 12:15 Last Infusion: 06/12/20 12:25 Dose: 0 mls/hr Documented by: [id number] Admin: 06/12/20 11:52 Dose: 999 mls/hr Documented by: [id number] Lorazepam (Ativan) 0.5 mg in 1 mls @ 1 mls/min IV NOW STA Stop: 06/12/20 11:39 Last Admin: 06/12/20 12:07 Dose: 1 mls/min Documented by: [id number] Sodium Chloride (Nss 1000ml) 500 mls @ 999 mls/hr IV .Q31M ONE Stop: 06/12/20 13:00 Last Infusion: 06/12/20 13:25 Dose: 0 mls/hr Documented by: [id number] Admin: 06/12/20 12:53 Dose: 999 mls/hr Documented by: [id number] Magnesium Sulfate/Dextrose (Magnesium Sulfate / D5w) 1 gm in 100 mls @ 100 mls/hr IV Q1H DONOVAN Stop: 06/12/20 14:29 Last Infusion: 06/12/20 14:01 Dose: 0 mls/hr Documented by: [id number] Admin: 06/12/20 12:52 Dose: 100 mls/hr Documented by: [id number] Potassium Chloride (K Derek / Wtr) 10 meq in 100 mls @ 100 mls/hr IV ONE ONE Stop: 06/12/20 13:29 Last Infusion: 06/12/20 14:01 Dose: 0 mls/hr Documented by: [id number] Admin: 06/12/20 12:51 Dose: 100 mls/hr Documented by: [id number] Labetalol HCl (Labetalol Hcl Iv 5 Mg/Ml 20ml) 10 mg IV NOW STA Stop: 06/12/20 11:39 Last Admin: 06/12/20 12:06 Dose: 10 mg Documented by: [id number] Cosigned by: [id number] Labetalol HCl (Labetalol Hcl Iv 5 Mg/Ml 20ml) 10 mg IV NOW STA Stop: 06/12/20 12:31 Last Admin: 06/12/20 12:53 Dose: 10 mg Documented by: [id number] Cosigned by: [id number] Labetalol HCl (Labetalol Hcl Iv 5 Mg/Ml 20ml) 10 mg IV NOW STA Stop: 06/12/20 13:34 Last Admin: 06/12/20 14:03 Dose: 10 mg Documented by: [id number] Cosigned by: [id number] Magnesium Oxide (Magnesium Oxide 400 Mg Tab) 400 mg PO NOW STA Stop: 06/12/20 12:31 Last Admin: 06/12/20 12:51 Dose: 400 mg Documented by: [id number] Potassium Chloride (Potassium Chloride 20 Meq Tabcr) 40 meq PO NOW STA Stop: 06/12/20 15:22 Last Admin: 06/12/20 15:32 Dose: 40 meq Documented by: [id number] ECG Rate (beats per minute): 142 Rhythm: sinus tachycardia Code Status & VTE Plan Code Status Full Code VTE Prophylaxis Plan VTE Prophylaxis will be ordered: No Supervising Physician Co-Signing Physician Notes Attending addendum: pt seen and examined , care co ordinated with Delicia Marina PA-C 39 yo F admitted with dizzy spell , lightheadedness noted to drink heavily ETOH at home for past several months found to be in hypertensive Urgency , severe elecrtrolyte imbalance , abnormal liver function , elevated lactic acid level all of the symptoms suggestive of ETOH abuse /withdrawl will be admitted to PCU , ETOH withdrawal protocol IV PRN labetaolol for hypertensive urgency ( pt was not on any antihypertensive meds in past ) elevated Lactic acid : possible due to ETOH abuse , severe dehydration , pt reports of not eating or drinking much except for ETOH in past few days cont IV fluid trend Lactic acid no evidence of sepsis Fever: elevated Pro gagan : no obvious source of infection no aspiration symptoms follow blood cx empiric abx with IV vancomycin and zosyn Social Issues : pt and his has 3 young childeren at home : 1 yo, 3 yo and a 5 yo both Parents are appears to be using ETOH excessively no family support pt wanted to leave AMA -as there was no children's service supervisor available to take care of the kids after much counselling -as she can be at risk for withdrawl seizure at home having young kids including infant at home there is no othere director of critical care present for the children is out of at [facility] [address] ( [place] ) for work , will not be back till thrusday . pt managed to have theatrical rigger stay overnight for the kids , so she can be admitted to hospital to receive medical care the circumstances does not appear safe for young kids , there is no safety plan when primary care givers -parents are intoxicated or incapacitated case discussed with ER physician Dr Lee and ED case Management CY-47 form was filled by ED CM i personally notified CYS case workers for [facility]YS will talk with pt and her social service consulted as well Yuliana Ulloa MD
[2020-06-12] MEDS ORDERED: MULTI-VITAMIN INFUSION 10 ML, THIAMINE HCL 100 MG, FOLIC ACID 1 MG in SODIUM CHLORIDE 0... IV ONE ×2 (16:00→16:29)
[2020-06-12 16:06] LABS: Calcium 9.1 mg/dl (8.5-10.1); Creatinine Clr Calc Pharmacy 86.1 ml/min; Est GFR (African American) 115.6; Est GFR (Non-African American) 99.7; Magnesium 2.1 mg/dl (1.8-2.4); Potassium 3.3 mmol/L (3.5-5.1)
[2020-06-12] MEDS ORDERED: LORazepam 1 MG/2 ML VIAL IV STA (16:29)
[2020-06-12] MEDS ORDERED: ATIVAN IV ALCOHOL WITHDRAWL IV PRN (17:58)
[2020-06-12] MEDS ORDERED: ONDANSETRON INJ 2 MG/ML 2 ML VIAL IV PRN (17:58)
[2020-06-12] MEDS ORDERED: LORazepam 3 MG/6 ML VIAL IV PRN (17:58)
[2020-06-12] MEDS ORDERED: ALUMINUM/MAGNESIUM SUSP 30 ML UDC PO PRN (17:58)
[2020-06-12] MEDS ORDERED: MAGNESIUM HYDROXIDE SUSP 30 ML UDC PO PRN (17:58)
[2020-06-12] MEDS ORDERED: POLYETHYLENE (MIRALAX) 17 GM PACK PO PRN (17:58)
[2020-06-12] MEDS ORDERED: GABAPENTIN 1200MG ALCOHOL WITHDRAWAL LOAD PO STA (17:58)
[2020-06-12] MEDS ORDERED: ACETAMINOPHEN 325 MG TAB PO PRN (17:58)
[2020-06-12] MEDS ORDERED: LORazepam 2 MG/4 ML VIAL IV PRN (17:58)
[2020-06-12] MEDS ORDERED: LABETALOL HCL IV 5 MG/ML 20ML IV PRN (17:58)
[2020-06-12] MEDS ORDERED: VANCOMYCIN CONSULT ACTIVE PRN (18:16)
[2020-06-12] MEDS ORDERED: PIPERACILL/TAZOBAC CONSULT ACTIVE PRN (18:16)
[2020-06-12] MEDS ORDERED: GABAPENTIN 600 MG TAB PO ONE (18:30)
--- NOTE | 2020-06-12 18:59 | Ultrasound Report ---
ABDOMINAL ULTRASOUND, RIGHT UPPER QUADRANT HISTORY: Elevated LFTs.. COMPARISON: Abdominal ultrasound 02/04/2011. FINDINGS: Pancreas: The visualized pancreas demonstrates a normal echotexture. Liver: The liver is echogenic consistent with fatty change. A 2 cm in length. No hepatic masses. The main portal vein is patent. Gallbladder: The gallbladder is surgically absent. CBD: 3 mm. Right kidney: A 6 mm stone within the upper pole. No hydronephrosis. IMPRESSION: 1. Prior cholecystectomy. Normal caliber common bile duct. 2. Mild hepatic steatosis. 3. Right-sided nephrolithiasis. No hydronephrosis. ACT 112: Negative or not required by law. Electronically signed by: Richie Soria M.D. 06/12/2020 6:58 PM
[2020-06-12] MEDS ORDERED: PIPERACILLIN/TAZOBACTAM 3.375 GM in DEXTROSE 5% 100 ML IV ONE (19:00)
[2020-06-12] MEDS ORDERED: VANCOMYCIN HCL 1,500 MG in SODIUM CHLORIDE 0.9% 500 ML IV SCH (19:00)
[2020-06-12] MEDS: THIAMINE HCL 100 MG TAB PO SCH (19:29)
[2020-06-12] MEDS: FOLIC ACID 1 MG TAB PO SCH (19:29)
[2020-06-12] MEDS: LORazepam 1 MG/2 ML VIAL IV PRN ×2 (20:22→23:20)
[2020-06-12] MEDS: NSS + 20MEQ KCL 20 MEQ/1,000 ML BAG IV SCH (20:29)
[2020-06-12 22:26] LABS: BUN Creatinine Ratio 4.3 (10-20); Calcium 7.9 mg/dl (8.5-10.1); Creatinine Clr Calc Pharmacy 73.5 ml/min; Est GFR (African American) 86.8; Est GFR (Non-African American) 74.9; Magnesium 1.9 mg/dl (1.8-2.4)
[2020-06-12] MEDS: GABAPENTIN 600 MG TAB PO SCH (23:06)
[2020-06-12] MEDS: PIPERACILLIN/TAZOBACTAM 3.375 GM in DEXTROSE 5% 100 ML IV SCH (23:09)
[2020-06-13 03:51] LABS: Amphetamines+Metham, Urine Neg (Neg); Barbiturates, Urine Neg (Neg); Benzodiazepine, Urine Neg (Neg); Cocaine, Urine Neg (Neg); MDMA (Ecstacy), Urine Neg (Neg); Opiate, Urine Neg (Neg); Phencyclidine, Urine Neg (Neg)
[2020-06-13 04:23] LABS: Methadone, Urine Neg (Neg)
[2020-06-13] MEDS ORDERED: VANCOMYCIN HCL 1,000 MG in SODIUM CHLORIDE 0.9% 250 ML IV SCH (06:00)
[2020-06-13 06:09] LABS: Hematocrit (blood only) 41.8 % (37-47); Mean Corpuscular Hemoglobin 34.6 pg (25-34); Mean Corpuscular Hgb Conc 33.5 g/dL (32-36); Mean Corpuscular Volume 103.2 fL (80-100); Mean Platelet Volume 9.7 fL (7.4-10.4); Platelet Count 254 K/uL (130-400); RDW Coefficient of Variation 13.2 % (11.5-14.5); RDW Standard Deviation 49.4 fL (36.4-46.3); Red Blood Count 4.05 M/uL (4.2-5.4); White Blood Count 6.55 K/uL (4.8-10.8)
[2020-06-13] MEDS: GABAPENTIN 600 MG TAB PO SCH ×3 (06:28→21:41)
[2020-06-13 06:29] LABS: Albumin Level 2.8 gm/dl (3.4-5.0); BUN Creatinine Ratio 5.8 (10-20); Calcium 7.5 mg/dl (8.5-10.1); Creatinine Clr Calc Pharmacy 109.6 ml/min; Est GFR (African American) 129.4; Est GFR (Non-African American) 111.6
[2020-06-13 06:39] LABS: Albumin Globulin Ratio 0.9 (0.9-2); Bilirubin,Total 1.9 mg/dl (0.2-1); Globulin 3.2 gm/dl (2.5-4.0)
[2020-06-13] MEDS ORDERED: PERFLUTREN LIPID MICROSPHERE (DEFINITY) IV ONE (07:22)
[2020-06-13] MEDS: PIPERACILLIN/TAZOBACTAM 3.375 GM in DEXTROSE 5% 100 ML IV SCH ×2 (07:39→15:23)
[2020-06-13] MEDS ORDERED: cloNIDine HCL 0.1 MG TAB PO PRN (07:52)
[2020-06-13 07:58] LABS: Estimated Average Glucose 108 mg/dl; Hemoglobin A1C 5.4 % (4.5-5.6)
[2020-06-13] MEDS ORDERED: POTASSIUM CHLORIDE 20 MEQ TABCR PO ONE (08:30)
[2020-06-13] MEDS ORDERED: carvediloL 6.25 MG TAB PO SCH (09:00)
[2020-06-13] MEDS ORDERED: AMLODIPINE BESYLATE 5 MG TAB PO SCH (09:00)
--- NOTE | 2020-06-13 09:14 | Communication Note ---
Date of Service: June 13, 2020 Social Issues : pt and her has 3 young children at home : 1 yo, 3 yo and a 5 yo both Parents are appears to be using ETOH excessively no family support available /no back up safety plan for the children pt wanted to leave AMA -as there was no early childhood education coordinator available to take care of the kids after much counselling -as she can be at risk for withdrawl seizure at home having young kids including at home with no other care mgr present for the children -she and the kids could be in life threatening situation. is out of at [facility] ( [place] ) for work , will not be back till thrusday . is aware of pt;s being admitted to hospital . Pt is counselled for the seriousness of the alcohol addiction ( pt reports can not function in morning without drinking alcohol , gets zittery without drinking for 1-2 days ), her s/s are mostly due to ETOH addiction counselling provided to seek help for alchohol addiction -either alcohol rehab or out patient which ever suitable social service will provide info for ETOH rehab resources on discharge pt managed to have print finisher stay overnight for the kids , so she can be admitted to hospital to receive medical care the circumstances does not appear safe for young kids , there is no safety plan when primary care givers -parents are intoxicated or incapacitated case discussed with ER physician Dr Lee and ED case Management CY-47 form was filled by ED CM i personally notified CYS case workers for [facility]YS will talk with pt and her social service consulted as well Yuliana Ulloa MD
[2020-06-13] MEDS: NSS + 20MEQ KCL 20 MEQ/1,000 ML BAG IV SCH (10:40)
[2020-06-13] MEDS: THIAMINE HCL 100 MG TAB PO SCH (10:42)
[2020-06-13] MEDS: FOLIC ACID 1 MG TAB PO SCH (10:42)
[2020-06-13] MEDS: POTASSIUM CHLORIDE / WTR 10 MEQ/100 ML PLCT IV SCH ×3 (10:51→12:10)
--- NOTE | 2020-06-13 11:43 | Electrocardiogram Report ---
Test Reason : Blood Pressure : / mmHG Vent. Rate : 086 BPM Atrial Rate : 086 BPM P-R Int : 116 ms QRS Dur : 076 ms QT Int : 392 ms P-R-T Axes : 049 016 028 degrees QTc Int : 469 ms Normal sinus rhythm Normal ECG When compared with ECG of 12-JUN-2020 11:34, Vent. rate has decreased BY 56 BPM Nonspecific T wave abnormality no longer evident in Anterolateral leads Confirmed by Mehran Friedman ([id number]) on 06/13/2020 11:43:24 AM Referred By: REFERRED SELF Confirmed By:Mehran Friedman
[2020-06-13] MEDS: METOPROLOL TARTRATE 25 MG TAB PO SCH ×2 (13:06→17:00)
--- NOTE | 2020-06-13 13:55 | Cardiology Consultation ---
Date of Consultation June 13, 2020 Assessment & Plan (1) Hypertensive urgency: (2) Migraine: (3) Anxiety: (4) Regular alcohol consumption: The pathophysiology of hypertensive urgency, uncontrolled hypertension and likely nonischemic cardiomyopathy were discussed with her at great length today. She does consume alcohol on a frequent basis but denies addiction, however, this could be potential contributing factor to her reduced LV systolic function and the need for cessation was discussed. She states that she will comply. At this point I believe the most prudent course of action would be to try and get her blood pressure and heart rate under control. I will start her on the Toprol tartrate 25 mg p.o. every 6 and increase as necessary. We will also start losartan for further blood pressure control. She was counseled that an ischemic work-up will be necessary, however, given her lack of ischemic symptoms we will likely hold off to be performed as an outpatient. She is very anxious and concerned about her family with 3 young children at home and I believe her anxiety is also contributing. Continue to monitor on telemetry overnight, anticipate discharge once blood pressure is well controlled. (5) NICM (nonischemic cardiomyopathy): History of Present Illness Reason for Consultation: Hypertensive urgency/new cardiomyopathy Requesting Physician: Dr. Varma Attending Physician: Abebe Varma MD History of Present Illness Mrs. Leary is a very pleasant 39-year-old woman who denies any cardiac history. She presented to [facility] at the direction of her primary care physician's office after being found to have uncontrolled hypertension. She states that for the last several days she is been having frequent episodes of lightheadedness and dizziness. 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 She became very fatigued and felt as though all of her energy was drained. She had to call her to come pick her up and she was taken to her PCPs office. There she was found to be significantly hypertensive and directed to the emergency department. She reluctantly complied and states that she is very concerned about her 5 small children at home. She denies any recent episodes of chest pain, shortness of breath or palpitations. She denies any history of hypertension. She states that she does drink alcohol regularly. Particularly vodka but states that she does not drink every day. She also states that she does not feel that she needs the alcohol. Allergies Allergy/AdvReac Type Severity Reaction Status Date / Time tramadol AdvReac Severe SEIZURES Verified 06/12/20 13:02 Home Medications Home Medications Medication Instructions Recorded Confirmed Type No Known Home Medications 06/12/20 06/12/20 History Patient History Medical History Anxiety History of narcotic addiction Migraine Surgical History History of dental surgery History of laparoscopic cholecystectomy Family History Grandfather (Paternal) Diabetes Grandmother (Maternal) Diabetes Social History Smoking Status: Never smoker Second Hand Exposure: No; Do You Dip or Chew Tobacco: No; Tobacco Cessation Education Requested by Patient: No Hx Alcohol Use: Yes Alcohol type: hard liquor Alcohol type Comment: and pt split 1 pint of liquor/week Alcohol Intake Frequency: 4 or More x per/Week Alcohol Intake Frequency Comment: 2-3 alcoholic beverages approx q. other day Hx Substance Use: No Preferred Language: Arabic Communication Ability: Effective [employer] Required: No Beliefs That Will Affect Care: None marital status: Current Living Situation: Spouse and Family How many Children do You have: 5 Feels Safe at Home: Yes Safety Concerns: Feels Safe At This Time Review of Systems Review of Systems: All systems reviewed & are unremarkable except as noted in HPI & below Physical Exam Physical Exam: General: Awake, alert and oriented x 3. No acute distress. HEENT: Normocephalic, atraumatic. Pupils equal, round and reactive to light and accommodation. Extraocular muscles are intact. Anicteric sclera. Moist mucous membranes. Neck: No JVD. No bruit. Cardiovascular: Regular. Positive S-4. Normal S-1 and S-2. No S-3. No murmurs or rubs. Pulmonary: Clear to auscultation B/L. No rales, rhonchi or wheezing Abdomen: Bowel sounds x 4, soft. No rebound, guarding or tenderness. No organomegaly. Extremities: No clubbing, cyanosis or edema. +2 pedal pulses bilaterally. Skin: Warm and dry. Results & Data ([facility]) Vital Signs (Past 12 Hours) Vital Signs Temp Pulse Resp BP BP Pulse Ox 06/13/20 11:25 37.2 C 20 177/134 H 97 06/13/20 10:37 149/128 H 178/126 H 06/13/20 07:35 36.6 C 105 H 22 178/128 H 99 06/13/20 02:53 36.7 C 90 18 149/114 H 100 Laboratory Results Laboratory Results - last 24 hr 06/12/20 06/12/20 06/12/20 18:50 19:43 21:50 WBC RBC Hgb Hct MCV MCH MCHC RDW Std Deviation RDW Coeff of Hanna Plt Count MPV Sodium 139 Potassium 3.0 L Chloride 105 Carbon Dioxide 27 Anion Gap 7.0 BUN 4 L Creatinine 0.95 Est Cr Clr Drug Dosing 73.5 Est GFR ( Amer) 86.8 Est GFR (Non-Af Amer) 74.9 BUN/Creatinine Ratio 4.3 L Glucose 112 H Estimat Average Glucose Hemoglobin A1c Lactate Calcium 7.9 L Magnesium 1.9 Total Bilirubin AST ALT Alkaline Phosphatase Total Protein Albumin Globulin Albumin/Globulin Ratio Triglycerides Cholesterol LDL Cholesterol, Calc VLDL Cholesterol, Calc HDL Cholesterol Cholesterol/HDL Ratio Vitamin B12 489 Procalcitonin 4.96 H Urine Opiates Screen Ur Methadone, Qual Urine Barbiturates Ur Phencyclidine (PCP) U Amphetamin/Meth Scrn MDMA (Ecstasy) Screen U Benzodiazepines Scrn Ur Cocaine Metabolite U Marijuana (THC) Screen 06/12/20 06/12/20 06/13/20 21:50 23:51 02:57 WBC RBC Hgb Hct MCV MCH MCHC RDW Std Deviation RDW Coeff of Hanna Plt Count MPV Sodium Potassium Chloride Carbon Dioxide Anion Gap BUN Creatinine Est Cr Clr Drug Dosing Est GFR ( Amer) Est GFR (Non-Af Amer) BUN/Creatinine Ratio Glucose Estimat Average Glucose Hemoglobin A1c Lactate 2.7 H* 3.1 H* Calcium Magnesium Total Bilirubin AST ALT Alkaline Phosphatase Total Protein Albumin Globulin Albumin/Globulin Ratio Triglycerides Cholesterol LDL Cholesterol, Calc VLDL Cholesterol, Calc HDL Cholesterol Cholesterol/HDL Ratio Vitamin B12 Procalcitonin Urine Opiates Screen Neg Ur Methadone, Qual Neg Urine Barbiturates Neg Ur Phencyclidine (PCP) Neg U Amphetamin/Meth Scrn Neg MDMA (Ecstasy) Screen Neg U Benzodiazepines Scrn Neg Ur Cocaine Metabolite Neg U Marijuana (THC) Screen Neg 06/13/20 06/13/20 06/13/20 05:47 05:47 05:47 WBC 6.55 RBC 4.05 L Hgb 14.0 D Hct 41.8 MCV 103.2 H MCH 34.6 H MCHC 33.5 RDW Std Deviation 49.4 H RDW Coeff of Hanna 13.2 Plt Count 254 MPV 9.7 Sodium 140 Potassium 3.0 L Chloride 108 H Carbon Dioxide 24 Anion Gap 8.0 BUN 4 L Creatinine 0.64 D Est Cr Clr Drug Dosing 109.6 Est GFR ( Amer) 129.4 Est GFR (Non-Af Amer) 111.6 BUN/Creatinine Ratio 5.8 L Glucose 87 Estimat Average Glucose 108 Hemoglobin A1c 5.4 Lactate Calcium 7.5 L Magnesium Total Bilirubin 1.9 H D AST 65 H ALT 35 Alkaline Phosphatase 71 Total Protein 6.0 L D Albumin 2.8 L Globulin 3.2 Albumin/Globulin Ratio 0.9 Triglycerides 113 Cholesterol 175 LDL Cholesterol, Calc 86 VLDL Cholesterol, Calc 23 HDL Cholesterol 66 Cholesterol/HDL Ratio 3 Vitamin B12 Procalcitonin Urine Opiates Screen Ur Methadone, Qual Urine Barbiturates Ur Phencyclidine (PCP) U Amphetamin/Meth Scrn MDMA (Ecstasy) Screen U Benzodiazepines Scrn Ur Cocaine Metabolite U Marijuana (THC) Screen 06/13/20 05:52 WBC RBC Hgb Hct MCV MCH MCHC RDW Std Deviation RDW Coeff of Hanna Plt Count MPV Sodium Potassium Chloride Carbon Dioxide Anion Gap BUN Creatinine Est Cr Clr Drug Dosing Est GFR ( Amer) Est GFR (Non-Af Amer) BUN/Creatinine Ratio Glucose Estimat Average Glucose Hemoglobin A1c Lactate 2.2 H* Calcium Magnesium Total Bilirubin AST ALT Alkaline Phosphatase Total Protein Albumin Globulin Albumin/Globulin Ratio Triglycerides Cholesterol LDL Cholesterol, Calc VLDL Cholesterol, Calc HDL Cholesterol Cholesterol/HDL Ratio Vitamin B12 Procalcitonin Urine Opiates Screen Ur Methadone, Qual Urine Barbiturates Ur Phencyclidine (PCP) U Amphetamin/Meth Scrn MDMA (Ecstasy) Screen U Benzodiazepines Scrn Ur Cocaine Metabolite U Marijuana (THC) Screen Medications Administered Current Inpatient Medications Acetaminophen (Acetaminophen 325 Mg Tab) 650 mg PO Q4H PRN PRN Reason: Pain or Fever Stop: 07/12/20 17:57 Al Hydrox/Mg Hydrox/Simethicone (Aluminum/Magnesium Susp 30 Ml Udc) 15 ml PO Q4H PRN PRN Reason: Dyspepsia Stop: 07/12/20 17:57 Folic Acid (Folic Acid 1 Mg Tab) 1 mg PO QAM [facility] Stop: 07/12/20 17:57 Last Admin: 06/13/20 10:42 Dose: 1 mg Documented by: Gabapentin (Gabapentin 600 Mg Tab) 600 mg PO Q8H [facility] Stop: 06/14/20 06:01 Last Admin: 06/13/20 13:08 Dose: 600 mg Documented by: Gabapentin (Gabapentin 600 Mg Tab) 600 mg PO Q12H [facility] Stop: 06/15/20 06:01 Gabapentin (Gabapentin 600 Mg Tab) 600 mg PO Q24H [facility] Stop: 06/16/20 06:01 Lorazepam (Ativan) 1 mg in 2 mls @ 2 mls/min IV UD PRN; Protocol PRN Reason: EtOH Withdrawl AWSS Score 6,7 Stop: 07/12/20 17:57 Last Admin: 06/12/20 23:20 Dose: 2 mls/min Documented by: Lorazepam (Ativan) 2 mg in 4 mls @ 4 mls/min IV UD PRN; Protocol PRN Reason: EtOH Withdrawl AWSS Score 8,9 Stop: 07/12/20 17:57 Lorazepam (Ativan) 3 mg in 6 mls @ 4 mls/min IV ONCE PRN; Protocol PRN Reason: EtOH Withdrawl AWSS Score >=10 Stop: 07/12/20 17:57 Piperacillin Sod/Tazobactam (Sod 3.375 gm/ Dextrose) 115 mls @ 28.75 mls/hr IV Q8H [facility]; Protocol Stop: 06/15/20 00:00 Last Admin: 06/13/20 15:23 Dose: 28.8 mls/hr Documented by: Losartan Potassium (Losartan Potassium 25 Mg Tab) 25 mg PO QAM [facility] Stop: 07/13/20 13:59 Last Admin: 06/13/20 15:25 Dose: 25 mg Documented by: Magnesium Hydroxide (Magnesium Hydroxide Susp 30 Ml Udc) 30 ml PO Q12H PRN PRN Reason: Constipation Stop: 07/12/20 17:57 Metoprolol Tartrate (Metoprolol Tartrate 25 Mg Tab) 25 mg PO Q6 [facility] Stop: 07/13/20 11:59 Last Admin: 06/13/20 13:06 Dose: 25 mg Documented by: Miscellaneous Information (Piperacill/Tazobac Consult Active) 1 ea N/A UD PRN PRN Reason: Consult Stop: 07/12/20 18:15 Ondansetron HCl (Ondansetron Inj 2 Mg/Ml 2 Ml Vial) 4 mg IV Q6H PRN PRN Reason: Nausea Stop: 07/12/20 17:57 Polyethylene Glycol (Polyethylene (Miralax) 17 Gm Pack) 17 gm PO DAILY PRN PRN Reason: Constipation Stop: 07/12/20 17:57 Thiamine HCl (Thiamine Hcl 100 Mg Tab) 100 mg PO QAM [facility] Stop: 07/12/20 17:57 Last Admin: 06/13/20 10:42 Dose: 100 mg Documented by:
[2020-06-13] MEDS ORDERED: LOSARTAN POTASSIUM 25 MG TAB PO SCH (14:00)
--- NOTE | 2020-06-13 15:08 | Hospitalist Progress Note ---
Date of Service June 13, 2020 Assessment & Plan (1) Hypertensive urgency: (2) Tachycardia: (3) Alcohol withdrawal: Patient is a This is a 39-year-old female who has no known significant past medical history who presents to ED at the recommendation of PCP. Alcohol Withdrawal Continue Gabapentin Protocol Ativan PRN Continue thiamine, folic acid Monitor for withdrawal symptoms Counseled to quit drinking CYS notified by Prior Hospitalist Hypertensive Urgency Sinus Tachycardia In setting of Alcohol Withdrawal No known H/O HTN ECHO: Normal LV chamber size and wall thickness. Mildly reduced LV and his systolic function with mild global hypokinesis, EF 45 to 50%. No significant valvular pathology. No previous studies available for comparison. Started on Metoprolol and Losartan Monitor BP Appreciate Cardiology Input (4) Lactic acidosis: Elevated Procalcitonin No obvious source of infection Blood culture: negative to date CXR:No active disease in the chest. UA not suggestive of UTI Received IV fluids Empirically on Zosyn Recheck-Procalcitonin in AM (5) Hypokalemia: Replete electrolytes as needed Monitor (6) Hypomagnesemia: Replete electrolytes as needed Monitor (7) Elevated LFTs: Hepatic Steatosis ABD USD: Prior cholecystectomy. Normal caliber common bile duct. Mild hepatic steatosis. Right-sided nephrolithiasis. No hydronephrosis. Elevated total bilirubin AST trending down Monitor LFTs (8) Acute dehydration: Received IV fluids DVT Px: SCDs Code Status Full Code Disposition: Patient not interested in Rehab placement Expect to discharge home when medically stable Admission and Anticipated Discharge Date Admission Date: June 12, 2020 Subjective Patient is seen and examined at bedside States feeling well today Dizziness resolved Denies any chest pain, shortness of breath, nausea, abdominal pain Blood pressure remains elevated Sinus tachycardia on monitor No other significant alcohol withdrawal symptoms Review of Systems Review of Systems: All systems reviewed & are unremarkable except as noted in HPI & below Physical Exam Physical Exam: Physical Exam: Vitals signs as noted above General Appearance:Moderately built and nourished, no apparent distress Head: normocephalic, Atraumatic Eyes: normal inspection, EOMI Neck: supple, Trachea midline Respiratory/Chest: Normal breath sounds, CTA Cardiovascular: S1, S2, No murmur, +Tachycardia Abdomen/GI:Soft, Non tender, Bowel sounds present Extremities/Musculoskelatal:normal inspection, no edema Neurologic/Psych:AAOX3, grossly no focal neurological deficits Skin: normal color, warm Results & Data Results & Data ([facility]) Vital Signs (Past 12 Hours) Vital Signs Temp Pulse Resp BP BP Pulse Ox 06/13/20 11:25 37.2 C 20 177/134 H 97 06/13/20 10:37 149/128 H 178/126 H 06/13/20 07:35 36.6 C 105 H 22 178/128 H 99 Laboratory Results Short CBC 06/13/20 Range/Units 05:47 WBC 6.55 (4.8-10.8) K/uL Hgb 14.0 D (12.0-16.0) g/dL Hct 41.8 (37-47) % Plt Count 254 (130-400) K/uL BMP 06/12/20 06/12/20 06/13/20 15:35 21:50 05:47 Sodium 137 139 140 Potassium 3.3 L 3.0 L 3.0 L Chloride 101 105 108 H Carbon Dioxide 26 27 24 BUN 4 L 4 L 4 L Creatinine 0.75 0.95 0.64 D Glucose 115 H 112 H 87 Calcium 9.1 7.9 L 7.5 L Liver Function 06/13/20 Range/Units 05:47 Total Bilirubin 1.9 H D (0.2-1) mg/dl AST 65 H (15-37) U/L ALT 35 (12-78) U/L Alkaline Phosphatase 71 (45-117) U/L Albumin 2.8 L (3.4-5.0) gm/dl
[2020-06-13] MEDS ORDERED: METOPROLOL TARTRATE 25 MG TAB PO ONE (19:45)
[2020-06-13] MEDS ORDERED: METOPROLOL TARTRATE 50 MG TAB PO SCH (19:45)
[2020-06-13] MEDS: LOSARTAN POTASSIUM 25 MG TAB PO SCH (20:37)
[2020-06-13] MEDS: LORazepam 1 MG/2 ML VIAL IV PRN (20:38)
[2020-06-14] MEDS: PIPERACILLIN/TAZOBACTAM 3.375 GM in DEXTROSE 5% 100 ML IV SCH ×2 (00:36→08:05)
[2020-06-14] MEDS: METOPROLOL TARTRATE 50 MG TAB PO SCH ×3 (00:36→12:33)
[2020-06-14 04:48] VITALS: TEMP 98.1
[2020-06-14] MEDS: GABAPENTIN 600 MG TAB PO SCH (05:24)
[2020-06-14 06:25] LABS: Hemoglobin 13.6 g/dL (12.0-16.0); Mean Corpuscular Hemoglobin 35.1 pg (25-34); Mean Corpuscular Volume 103.4 fL (80-100); Mean Platelet Volume 9.8 fL (7.4-10.4); Platelet Count 234 K/uL (130-400); RDW Coefficient of Variation 13.1 % (11.5-14.5); RDW Standard Deviation 48.9 fL (36.4-46.3); Red Blood Count 3.87 M/uL (4.2-5.4); White Blood Count 8.14 K/uL (4.8-10.8)
[2020-06-14 07:03] LABS: Albumin Level 2.7 gm/dl (3.4-5.0); BUN Creatinine Ratio 11.7 (10-20); Bilirubin Direct 0.4 mg/dl (0-0.2); Calcium 7.9 mg/dl (8.5-10.1); Creatinine Clr Calc Pharmacy 98.1 ml/min; Est GFR (African American) 121.4; Est GFR (Non-African American) 104.8; Magnesium 1.6 mg/dl (1.8-2.4); Potassium 3.9 mmol/L (3.5-5.1)
[2020-06-14 07:10] LABS: Bilirubin,Total 1.1 mg/dl (0.2-1); Total Protein 6.2 gm/dl (6.4-8.2)
--- NOTE | 2020-06-14 09:03 | Electrocardiogram Report ---
Test Reason : Blood Pressure : / mmHG Vent. Rate : 079 BPM Atrial Rate : 079 BPM P-R Int : 122 ms QRS Dur : 070 ms QT Int : 386 ms P-R-T Axes : 034 050 047 degrees QTc Int : 442 ms Normal sinus rhythm Normal ECG When compared with ECG of 13-JUN-2020 06:40, No significant change was found Confirmed by Mehran Friedman ([id number]) on 06/14/2020 9:03:02 AM Referred By: REFERRED SELF Confirmed By:Mehran Friedman
[2020-06-14] MEDS: MAGNESIUM SULFATE / D5W 1 GM/100 ML BAG IV SCH ×2 (09:10→12:32)
[2020-06-14] MEDS ORDERED: LOSARTAN/HCTZ 50/12.5MG TAB PO SCH (09:15)
[2020-06-14] MEDS: FOLIC ACID 1 MG TAB PO SCH (10:20)
[2020-06-14] MEDS: LOSARTAN POTASSIUM 25 MG TAB PO SCH (10:20)
[2020-06-14] MEDS: THIAMINE HCL 100 MG TAB PO SCH (10:20)
[2020-06-14] MEDS: LORazepam 1 MG/2 ML VIAL IV PRN (12:31)
--- NOTE | 2020-06-14 14:14 | Cardiology Progress Note ---
Date of Service June 14, 2020 Assessment & Plan (1) Hypertensive urgency: (2) Migraine: (3) Anxiety: (4) Regular alcohol consumption: The pathophysiology of hypertensive urgency, uncontrolled hypertension and likely nonischemic cardiomyopathy were discussed with her at great length today. She does consume alcohol on a frequent basis but denies addiction, however, this could be potential contributing factor to her reduced LV systolic function and the need for cessation was discussed. She states that she will comply. At this point I believe the most prudent course of action would be to try and get her blood pressure and heart rate under control. Her pressure is improving but still significant elevated. Will change losartan to Hyzaar 100/12.5 mg p.o. daily Will change metoprolol tartrate to 50 mg p.o. twice daily upon discharge. My hope is that with increased medication titration her blood pressure will be improved later today and hope for discharge this p.m. Patient is very anxious and will ask the primary care team to initiate SSRI therapy. (5) NICM (nonischemic cardiomyopathy): Admission and Anticipated Discharge Date Admission Date: June 12, 2020 Subjective Patient seen and examined, chart reviewed. Patient states that she is very anxious. Denies any complaints of chest pain, shortness of breath, palpitations, lightheadedness, dizziness or syncope. Telemetry reviewed: Normal sinus rhythm without arrhythmia or significant ectopy. Review of Systems Review of Systems: All systems reviewed & are unremarkable except as noted in HPI & below Physical Exam Physical Exam: General: Awake, alert and oriented x 3. No acute distress. HEENT: Normocephalic, atraumatic. Pupils equal, round and reactive to light and accommodation. Extraocular muscles are intact. Anicteric sclera. Moist mucous membranes. Neck: No JVD. No bruit. Cardiovascular: Regular. Positive S-4. Normal S-1 and S-2. No S-3. No murmurs or rubs. Pulmonary: Clear to auscultation B/L. No rales, rhonchi or wheezing Abdomen: Bowel sounds x 4, soft. No rebound, guarding or tenderness. No organomegaly. Extremities: No clubbing, cyanosis or edema. +2 pedal pulses bilaterally. Skin: Warm and dry. Results & Data ([facility]) Vital Signs (Past 12 Hours) Vital Signs Temp Pulse Resp BP Pulse Ox 06/14/20 11:45 36.7 C 88 18 158/119 H 100 06/14/20 07:37 36.7 C 87 18 167/111 H 100 06/14/20 04:46 36.7 C 84 24 167/117 H 99
[2020-06-14 15:28] VITALS: BP 153/96; PULSE 78; O2SAT 98
--- NOTE | 2020-06-14 15:52 | Hospitalist Progress Note ---
Date of Service June 14, 2020 Assessment & Plan (1) Hypertensive urgency: (2) Tachycardia: (3) Alcohol withdrawal: Patient is a This is a 39-year-old female who has no known significant past medical history who presents to ED at the recommendation of PCP. Alcohol Withdrawal Continue Gabapentin Protocol Ativan PRN Continue thiamine, folic acid Monitor for withdrawal symptoms Counseled to quit drinking CYS notified by Prior Hospitalist--No serious concerns about children safety as per CM Hypertensive Urgency Sinus Tachycardia In setting of Alcohol Withdrawal No known H/O HTN ECHO: Normal LV chamber size and wall thickness. Mildly reduced LV and his systolic function with mild global hypokinesis, EF 45 to 50%. No significant valvular pathology. No previous studies available for comparison. BP better Appreciate Cardiology Input Plan to discharge on Hyzaar 100/12.5mg daily and Metoprolol 50mg BID Needs follow up with Cardiology upon discharge (4) Lactic acidosis: Elevated Procalcitonin No obvious source of infection Blood culture: negative to date CXR:No active disease in the chest. UA not suggestive of UTI Received IV fluids Empirically received Zosyn Procalcitonin trended down (5) Hypokalemia: Replete electrolytes as needed Monitor (6) Hypomagnesemia: Replete electrolytes as needed Monitor (7) Elevated LFTs: Hepatic Steatosis ABD USD: Prior cholecystectomy. Normal caliber common bile duct. Mild hepatic steatosis. Right-sided nephrolithiasis. No hydronephrosis. LFTs trended down Monitor LFTs (8) Acute dehydration: Received IV fluids DVT Px: SCDs Code Status Full Code Disposition: Patient not interested in Rehab placement Plan to discharge home today Admission and Anticipated Discharge Date Admission Date: June 12, 2020 Subjective Patient is seen and examined at bedside No new complaints BP improved this afternoon Discussed with Cardiology today Denies any chest pain, shortness of breath, dizziness, nausea, abdominal pain Review of Systems Review of Systems: All systems reviewed & are unremarkable except as noted in HPI & below Physical Exam Physical Exam: Physical Exam: Vitals signs as noted above General Appearance:Moderately built and nourished, no apparent distress Head: normocephalic, Atraumatic Eyes: normal inspection, EOMI Neck: supple, Trachea midline Respiratory/Chest: Normal breath sounds, CTA Cardiovascular: S1, S2, No murmur Abdomen/GI:Soft, Non tender, Bowel sounds present Extremities/Musculoskelatal:normal inspection, no edema Neurologic/Psych:AAOX3, grossly no focal neurological deficits Skin: normal color, warm Results & Data Results & Data ([facility]) Vital Signs (Past 12 Hours) Vital Signs Temp Pulse Resp BP BP Pulse Ox 06/14/20 15:27 36.7 C 78 16 153/96 H 98 06/14/20 11:45 36.7 C 88 18 158/119 H 100 06/14/20 07:37 36.7 C 87 18 167/111 H 100 06/14/20 04:46 36.7 C 84 24 167/117 H 99 Laboratory Results Short CBC 06/14/20 Range/Units 05:52 WBC 8.14 (4.8-10.8) K/uL Hgb 13.6 (12.0-16.0) g/dL Hct 40.0 (37-47) % Plt Count 234 (130-400) K/uL BMP 06/14/20 05:52 Sodium 140 Potassium 3.9 D Chloride 111 H Carbon Dioxide 23 BUN 9 D Creatinine 0.72 Glucose 97 Calcium 7.9 L Liver Function 06/14/20 Range/Units 05:52 Total Bilirubin 1.1 H (0.2-1) mg/dl Direct Bilirubin 0.4 H (0-0.2) mg/dl AST 66 H (15-37) U/L ALT 34 (12-78) U/L Alkaline Phosphatase 66 (45-117) U/L Albumin 2.7 L (3.4-5.0) gm/dl
--- NOTE | 2020-06-14 16:04 | Discharge Summary ---
Date of Service June 14, 2020 Admission HPI Per Admitting Provider This is a 39-year-old female who has no known significant past medical history who presents to ED at the recommendation of PCP. She was seen and evaluated by PCP today for acute appointment secondary to intermittent dizziness, tremulous and ill feeling. She was found to be significantly hypertensive and tachycardic and referred to ED for further evaluation. She states over the past several months, "since the pandemic," she has intermittently been having episodes where she feels dizzy and lightheaded like she could pass out, tremulous, Diaphoretic and overall ill feeling. Symptoms will last anywhere from 1 to 2 hours up to several hours before resolving on own. She had episode last evening which lasted 2 to 3 hours and she thought, "my blood sugar might be low." She ate ravioli's and some candy and started to feel better. She also states she had an alcoholic beverage with approximately 1 shot in it last evening as well. She woke up this morning and symptoms returned and therefore called PCP for further evaluation. These episodes been occurring over the past several months she feels they have been coming for frequently.She otherwise denies any recent illness, fever, chills, sweats, chest pain, shortness of breath, palpitations, nausea, vomiting, abdominal pain, diarrhea, melena, hematochezia, dysuria, increased urgency or frequency with urination.She denies any illicit drug use and does have a past medical history of narcotic abuse in 2010.She states she has been drinking alcohol, "more than I should." She admits to approximately drinking every other day 2-3 alcoholic beverages. Her and her go through 1 pint of liquor weekly.She denies any prior history of withdrawal but does elicit that she noticed symptoms occur the next day when she does not have a drink. Last drink was last evening 06/11 and prior to that was 06/09 where she had 3-4 drinks. Also secondary to the pandemic she feels she has not been eating much and has not been taking care of herself.She denies any prior history of hypertension and she is not on any prescription medications. Since arriving to ED she does feel significantly improved. Upon arrival she did meet criteria for hypertensive urgency and was significantly tachycardic with heart rates in the 130s to 150s. She received 3 rounds of 10 mg of IV labetalol and current blood pressure upon my evaluation is 140s over 110s. She has significant lab abnormalities with potassium 2.9, mag 1.2, calcium 10.5, AST 130, total bilirubin 1.2, Lactic acid 3.7, H&H elevated at 17.2 and 47.9 with macrocytic indices, WBC 10.05. In ED she did receive 10 M EQ KCl IV, 1 g IV mag sulfate, 400 oral magnesium, 1 L IVF. Admission Exam Per Admitting Provider Constitutional: WD/WN, vitals as above, NAD, sitting up in bed, pleasant, conversing easily Head: Normocephalic, Atraumatic Eyes: PERRL, conjunctivae normal, anicteric sclerae ENMT: external ear and nose normal, oropharynx normal Neck: trachea midline, no thyromegaly normal visual inspection Respiratory: normal respiratory effort, lungs clear to auscultation, no wheeze, rales, rhonchi. Normal insp/exp effort, no accessory muscle use Cardiovascular: tachycardic rate, regular rhythm, no murmur, no edema Vessels: no JVD or carotid bruit Chest: normal inspection of chest Abdomen: normal bowel sounds, soft, nontender, no hepatosplenomegaly Musculoskeletal: no cyanosis or clubbing, extremities motor strength 5/5 Skin: no rashes, warm and dry normal turgor Neurologic: PERRL, EOMI, accommodation nl, no face palsy, no dysarthria CN's II-XI intact bilaterally and moves all extremities Psychiatric: A+Ox3, euthymic affect Lymphatic: no cervical or axillary lymphadenopathy : deferred Principal Diagnosis Alcohol Withdrawal Hypertensive Urgency Nonischemic cardiomyopathy Sinus Tachycardia Hypokalemia Hypomagnesemia Lactic acidosis Transaminitis Discharge Data Allergies Allergy/AdvReac Type Severity Reaction Status Date / Time tramadol AdvReac Severe SEIZURES Verified 06/12/20 13:02 Consultations 06/12/20 14:45 ED Decision to Admit Stat 06/12/20 17:58 Consult Case Management - Discharge Planning Stat 06/13/20 10:54 Consult Cardiology Routine Procedures Performed ECHO: Normal LV chamber size and wall thickness. Mildly reduced LV and his systolic function with mild global hypokinesis, EF 45 to 50%. No significant valvular pathology. No previous studies available for comparison. Ordered Studies 06/12/20 17:58 US abdomen limited Routine Hospital Course (1) Hypertensive urgency: (2) Tachycardia: (3) Alcohol withdrawal: Patient is a This is a 39-year-old female who has no known significant past medical history who presents to ED at the recommendation of PCP. Alcohol Withdrawal Continue Gabapentin Protocol Ativan PRN Continue thiamine, folic acid Monitor for withdrawal symptoms Counseled to quit drinking CYS notified by Prior Hospitalist--No serious concerns about children safety as per CM Hypertensive Urgency Sinus Tachycardia In setting of Alcohol Withdrawal No known H/O HTN ECHO: Normal LV chamber size and wall thickness. Mildly reduced LV and his systolic function with mild global hypokinesis, EF 45 to 50%. No significant valvular pathology. No previous studies available for comparison. BP better Appreciate Cardiology Input Plan to discharge on Hyzaar 100/12.5mg daily and Metoprolol 50mg BID Needs follow up with Cardiology upon discharge (4) Lactic acidosis: Elevated Procalcitonin No obvious source of infection Blood culture: negative to date CXR:No active disease in the chest. UA not suggestive of UTI Received IV fluids Empirically received Zosyn Procalcitonin trended down (5) Hypokalemia: Replete electrolytes as needed Monitor (6) Hypomagnesemia: Replete electrolytes as needed Monitor (7) Elevated LFTs: Hepatic Steatosis ABD USD: Prior cholecystectomy. Normal caliber common bile duct. Mild hepatic steatosis. Right-sided nephrolithiasis. No hydronephrosis. LFTs trended down Monitor LFTs (8) Acute dehydration: Received IV fluids DVT Px: SCDs Code Status Full Code Disposition: Patient not interested in Rehab placement Plan to discharge home today Total Time Total Time Spent Total Time Spent (In Minutes): 38 minutes Total Time Includes: Examination of the Patient, Discharge Planning, Medication Reconciliation, Communication With Other Providers and Other Discharge Plan Discharge Items Patient Disposition: Home - Self-Care Reason For Visit: HTN URGENCY, ELECTROLYTE ABNORMALITY Discharge Diagnosis: Alcohol Withdrawal Hypertensive Urgency Nonischemic cardiomyopathy Sinus Tachycardia Hypokalemia Hypomagnesemia Lactic acidosis Transaminitis Condition on Discharge: Good Activity: Per Instructions section Exercise/Sports: Gradually increase as tolerated Non-emergency contact: 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 Arthur as recommended Quit drinking alcohol as advised Complete antibiotic course Augmentin for 3 more days as prescribed. Your final blood cultures are pending at the time of discharge. Follow-up with your physician for results as recommended. Seek immediate medical attention if your symptoms reoccur or worsen Pending Studies at Discharge: Yes Studies:: Blood Cultures Stand-Alone Forms: My [facility], Smoking Cessation Medications and DC Order Prescriptions: New gabapentin 600 mg Tablet 600 mg PO Q24H Qty: 3 RF: 0 thiamine HCl (vitamin B1) [Vitamin B-1] 100 mg Tablet 100 mg PO QAM Qty: 30 RF: 0 folic acid 1 mg Tablet 1 mg PO QAM Qty: 30 RF: 0 amoxicillin-pot clavulanate [Augmentin] 500-125 mg tablet 1 tab PO BID Qty: 6 RF: 0 losartan-hydrochlorothiazide 100-12.5 mg tablet 1 tab PO DAILY Qty: 30 RF: 0 metoprolol tartrate 50 mg tablet 50 mg PO BID Qty: 60 RF: 0 No Action No Known Home Medications RF: 0 Discharge Orders: Discharge Order (Routine); Ordered 06/14/20 Ordered By: Abebe Parry/Other Patient Handouts: High Blood Pressure Risk Factors, Alcoholism: Getting Help, Alcohol Addiction, Alcohol Withdrawal: What to Expect, Hypertension Dc Admission Data Admit Date/Time: 06/12/20 14:50 Attending Provider: Abebe Varma Admit Provider: Yuliana Ulloa Primary Care Provider: Peterson Lr Other Providers: Yuliana Ulloa ; Ilan Arthur Other Interventions: Discharge Summary Assessment (RN) Last Done: 06/14/20 16:13
[2020-06-14] MEDS ORDERED: VANCOMYCIN TROUGH ONE (17:30)
[2020-06-14] MEDS ORDERED: GABAPENTIN 600 MG TAB PO SCH (18:00)
[2020-06-16] MEDS ORDERED: GABAPENTIN 600 MG TAB PO SCH (06:00)
== END 2020-06-14 16:30 | disposition home or self-care (01) | DRG 305 ==
LOC: ED 11:19 → 2E 14:50 → SUATTDRO 14:50 → 2E 17:32

== ENCOUNTER 2020-07-17 08:04 | Inpatient (IN) ==
[2020-07-17] MEDS ORDERED: ONDANSETRON INJ 2 MG/ML 2 ML VIAL IV STA (08:18)
[2020-07-17] MEDS ORDERED: fentaNYL citrate 100 MCG/2 ML VIAL IV STA ×2 (08:18→10:22)
[2020-07-17] MEDS ORDERED: FOLIC ACID 1 MG in SYRINGE 9.8 ML IV STA (08:22)
[2020-07-17] MEDS ORDERED: THIAMINE HCL 200 MG in SODIUM CHLORIDE 0.9% 50 ML IV STA (08:22)
--- NOTE | 2020-07-17 08:23 | Emergency Department Note ---
Impression & Plan Acute pancreatitis, Acute kidney injury, Elevated lactic acid level, Elevated liver enzymes, Acute hyponatremia, Hypoglycemia, Hypokalemia, Episode of unresponsiveness, High anion gap metabolic acidosis ED Provider Note CHIEF COMPLAINT: Vomiting, fall, period of unresponsiveness HISTORY OF PRESENTING ILLNESS: This is a 39-year-old female who presents to the emergency department via EMS from home with concern for a period of unresponsiveness this morning. Per EMS, the patient fell down some stairs and was found minimally responsive but was breathing and had a pulse. When they moved her from the stairs to the later she began to be more responsive and was talking. They did not witness any seizure-like activity. They did give the patient intranasal Narcan. Patient states that she has been vomiting for the past 2 days, she states this started shortly after she stopped drinking alcohol. She does note that she has a history of alcohol abuse and normally drinks "a lot of hard liquor" every day. Her last drink was 2 days ago. She states that she has been having diffuse abdominal pain, mostly across the mid and upper abdomen, this started after her vomiting began 2 days ago, has been constant, aching and cramping, and she rates this 6/10. She states that she was vomiting all through the night. She did take 1/2 pill of Ativan around 3 AM, but she did not feel it was helping, so she took the other half a few hours later and states she started to feel dizzy and "out of it and felt like I could not walk." She does not remember falling down the stairs and is unable to provide much history of the events of this morning. She denies any chest pain, shortness of breath, cough, hemoptysis, back pain. She denies any urinary symptoms. She denies any diarrhea or constipation. She denies any bloody or bilious emesis. She denies any fevers or chills. REVIEW OF SYSTEMS: A complete 10 point review of systems was reviewed with the patient with pertinent positives and negatives as per history of present illness. All else were negative. PAST MEDICAL HISTORY: Hypertension, nonischemic cardiomyopathy, migraines, anxiety, history of alcohol abuse SOCIAL HISTORY: Lives at home with family, she denies tobacco use, she reports regular heavy alcohol use, denies drug use ALLERGIES: Reviewed in chart with the PHYSICAL EXAM: CONSTITUTIONAL: Pleasant and cooperative. Nontoxic-appearing and in no acute distress. Appears dehydrated, but is otherwise well appearing and well nourished. HEENT: Normocephalic, atraumatic. PERRL, EOMI with no nystagmus, mild scleral icterus. TMs normal, no hemotympanum. Pharynx normal. Dry mucous membranes. NECK: Supple, full active range of motion without discomfort. No midline tenderness to palpation of the cervical spine. No cervical adenopathy. RESPIRATORY: Clear to auscultation bilaterally with no wheezing, crackles, rhonchi or stridor. Equal expansion bilaterally. CARDIOVASCULAR: Regular rate and rhythm with no murmurs, rubs or gallops. Normal peripheral perfusion. No edema. GASTROINTESTINAL: Diffuse abdominal tenderness throughout, most tender to palpation in the epigastric and left upper quadrant, soft and nondistended. No rebound tenderness or guarding. No palpable masses or HSM. Bowel sounds present in all quadrants. No CVA tenderness bilaterally. MUSCULOSKELETAL: Full range of motion of all joints without discomfort. INTEGUMENTARY: No rash or other significant dermatologic conditions noted. NEUROLOGIC: Alert and oriented X 4 with normal affect. Cranial nerves II-XII grossly intact, no facial droop. No pronator drift. No focal neurologic deficits noted. 5/5 strength in all 4 extremities, sensation intact light touch in all 4 extremities. Normal speech. ED COURSE AND MEDICAL DECISION MAKING: CC: Patient presenting with complaint of vomiting, fall, period of unresponsiveness DIFFERENTIAL DIAGNOSIS: Includes, but not limited to gastroenteritis, gastritis, peptic ulcer disease, GERD, cholecystitis, cholelithiasis, pancreatitis, hepatitis, small bowel obstruction, ureteral stone, dehydration, electrolyte imbalance, acute kidney injury, alcohol withdrawal, sepsis, traumatic injuries including cranial hemorrhage, concussion, skull fracture, cervical spine injury, intrathoracic or intra-abdominal injuries, among others. INTERPRETATION OF LABS: Leukocytosis with left shift, no anemia, normal platelets, mildly elevated PT/INR with a normal PTT. Numerous electrolyte abnormalities including hyponatremia, hypokalemia, hypochloremia, hypocalcemia, hypoglycemia, and hypomagnesemia. Significantly elevated BUN and creatinine concerning for ROXANA. Significantly elevated gap. VBG notable for acidosis with a low PCO2. Total bilirubin and liver enzymes are elevated, and lipase is significantly elevated. Lactic acid elevated. Procalcitonin elevated. TSH within normal limits. Serum negative. Alcohol is negative. Acetaminophen and salicylate levels were not able to be run by the lab. IMAGING: XR chest 1V portable CLINICAL HISTORY: fall down stairs, trauma CHEST PAIN COMPARISON STUDY: 06/29/2020 FINDINGS: The cardiac and mediastinal contours are normal. There is no evidence of focal pulmonary consolidation. There is no evidence of failure. No pleural effusions are visualized.[No pneumothorax is visualized. IMPRESSION: No active disease in the chest. ----- CT head/brain wo con CLINICAL HISTORY: Head pain status post trauma COMPARISON STUDY: June 19, 2020 TECHNIQUE: Axial CT of the brain is performed from the vertex to the skull base. IV contrast was not administered for this examination. A dose lowering technique was utilized adhering to the principles of ALARA. CT DOSE: FINDINGS: No intra or extra-axial mass lesions are visualized. There is no CT evidence of acute cortical infarction. There is no evidence of midline shift. There is no acute hemorrhage. No calvarial fractures are visualized. There is no evidence of pathologic ventricular dilatation. There is no evidence of acute sinusitis IMPRESSION: No acute intracranial findings ----- CT OF THE CERVICAL SPINE WITHOUT CONTRAST CLINICAL HISTORY: fall down stairs, trauma COMPARISON STUDY: No previous studies for comparison. TECHNIQUE: Helical axial images of the cervical spine were obtained without IV contrast. Sagittal and coronal reconstructions were viewed. Automated exposure control was utilized for the study. A dose lowering technique was utilized adhering to the principles of ALARA. FINDINGS: Alignment of the cervical spine is anatomic. Vertebral body heights are maintained. No acute cervical spine fracture or subluxation is present. There is no prevertebral edema. Facet joints are intact. 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 IMPRESSION: No acute cervical spine fracture or subluxation. ----- CT OF THE CHEST WITHOUT IV CONTRAST CLINICAL HISTORY: abd pain/vomiting/hx of etoh abuse. COMPARISON STUDY: Chest CT June 19, 2020. Chest radiograph performed earlier today. CT DOSE: 1834.77 mGy.cm TECHNIQUE: Axial images of the chest were obtained without IV contrast. Images were reviewed in the axial, sagittal, and coronal planes. IV contrast was not administered for this examination. Automated exposure control was utilized for the study. A dose lowering technique was utilized adhering to the principles of ALARA. FINDINGS: The esophagus is fluid-filled and mildly dilated. No mediastinal hematoma is identified. Size of the heart is normal. There is no pericardial effusion. Subpleural right lung opacity reflects atelectasis. There is no pneumothorax. There are no suspicious pulmonary nodules. The central airways are patent. No acute rib or thoracic spine fracture is noted. Slight concavity of the superior endplates of several thoracic vertebral bodies is unchanged since P ET/CT of June 19, 2020. CT of the abdomen and pelvis will be reported separately. Marked fatty infiltration liver is noted with peripancreatic infiltration consistent with acute pancreatitis. IMPRESSION: 1. No acute process within the chest. 2. Peripancreatic infiltration consistent with acute pancreatitis. Marked fatty infiltration of the liver. 3. Mildly dilated fluid-filled esophagus. ----- CT SCAN OF THE ABDOMEN AND PELVIS WITHOUT CONTRAST CLINICAL HISTORY: Diffuse abdominal pain status post trauma. Fall down stairs. COMPARISON STUDY: CT scan dated 06/01/2010, CT scan of the chest dated 06/19/2020 TECHNIQUE: CT scan of the abdomen and pelvis was performed from the lung bases to the proximal femurs. Images are reviewed in the axial, sagittal, and coronal planes. IV contrast was not administered for this examination. A dose lowering technique was utilized adhering to the principles of ALARA. CT DOSE: FINDINGS: Lower chest: There is no pneumothorax. There are no pleural effusions. There is minor basilar atelectasis. Liver: There is severe hepatic steatosis. No focal masses are visualized in this noncontrast study. Gallbladder: Surgically absent Spleen: Normal in size and attenuation. Pancreas: No intrinsic pancreatic lesions are visualized. There is infiltration of the peripancreatic fat. Adrenal glands: Unremarkable. Kidneys: There is a nonobstructing 3 mm right renal calculus. There is no hydronephrosis. Bowel: There are no transition zones to indicate bowel obstruction. There is no evidence of acute diverticulitis. The appendix appears normal. Peritoneum: There is trace perisplenic fluid. There is trace fluid within the paracolic gutters. There is mild mesenteric edema. There is a small fat- containing umbilical hernia. There is fluid within a mildly dilated distal esophagus. Vasculature: The abdominal aorta is normal in course and caliber. Adenopathy: None. Pelvic viscera: The bladder, and pelvic viscera are unremarkable. Skeletal structures: No fractures are visualized. IMPRESSION: 1. Interval development of severe hepatic steatosis. The interval change attendant one month would be consistent with acute alcoholic steatohepatitis. 2. Infiltration of the pancreatic fat. The findings are suggestive of pancreatitis. Acute traumatic pancreatitis could appear similar but is statistically less likely than alcoholic pancreatitis. 3. Trace ascites, likely secondary to liver disease and pancreatitis 4. Nonobstructing right renal calculus 5. Dilated fluid-filled distal esophagus 6. No convincing evidence of acute traumatic injury given the limitations of a noncontrast study EKG: Shows sinus tachycardia with a rate of 101 bpm, prolonged QT, no ST or T wave abnormalities, no ectopy, previous T wave abnormalities in the inferior and anterior leads appear to be resolved when compared to previous EKG from 06/29/2020 by my interpretation. MEDICATION RECONCILIATION: I attest that I have personally reviewed the patient's current medication list. INITIAL VITAL SIGNS REVIEW: I reviewed the patient's initial vital signs and interpret them as follows: T: Afebrile; BP: Normotensive; HR: Tachycardic; RR: Within normal limits; Pulse Ox: Within normal limits on room air. Blood pressure screening: The patient was found to have normal blood pressure on screening and does not require follow-up for repeat blood pressure check. MDM SUMMARY: Patient was evaluated at bedside, history and physical exam performed. Patient is alert and oriented, in no acute distress, resting calmly in stretcher. Patient is neurologically intact with no focal deficits. She complains of abdominal pain and nausea/vomiting. She denies any other concerns. Abdomen is diffusely tender, especially across the upper abdomen, no acute abdomen. No trauma noted to the face or head. She denies a headache. No tenderness to palpation of the cervical spine. No chest wall tenderness. No back pain. Neurovascularly intact in all 4 extremities. The patient does appear to be moderately dehydrated and is noted to be tachycardic. She is not hypotensive. She is not febrile or toxic in appearance. Cardiac monitoring: An order was placed for continuous cardiac monitoring. The monitor shows a rate of 112 bpm with sinus tachycardia rhythm. The patient does admit to regular, heavy alcohol use, but states she has not had a drink for the past 2 days. She denies any history of seizures or severe alcohol withdrawal. She is interested in rehab for her alcohol use. Orders were placed at bedside for labs, IV fluid bolus for hydration, IV thiamine and folate for her history of alcohol abuse, IV Zofran for nausea, IV fentanyl for pain, CT imaging of the head, cervical spine, chest, abdomen, and pelvis to evaluate for trauma. Patient discussed with Dr. Noel, who also evaluated the patient and agrees with my assessment, plan, and disposition. Labs and imaging reviewed as above, there are several concerning lab findings, including leukocytosis with left shift several electrolyte abnormalities and an open gap, acute kidney injury, acutely elevated T bili and liver enzymes, and significantly elevated lipase. Of note, her ethyl alcohol level is negative. An amp of D50 was given for her hypoglycemia, recheck blood glucose was improved. She was given IV KCl for potassium replacement as well. Additional lab orders were placed for blood cultures, lactic acid level, procalcitonin level, and ammonia level. CT imaging reviewed as above, no traumatic findings. CT abdomen demonstrates findings consistent with interval development of severe steatohepatitis as well as acute pancreatitis. Additional labs reviewed, noting an elevated lactic acid, elevated procalcitonin, and acidosis on VBG. Orders were placed for 2 g IV cefepime for empiric antibiotic coverage given the elevated lactic acid, pro calcitonin, and leukocytosis. Patient reassessed multiple times throughout ED stay, she has remained hemodynamically stable and afebrile and reports her pain is improved after the fentanyl. She is not vomiting and states her nausea has resolved. Tachycardia remains fairly persistent in spite of IV fluids. I spoke with the patient and her and updated them on plan for admission, they verbalized understanding and were agreeable to this plan. I spoke on the phone with Delicia Montes PA-C with the hospitalist service, who agrees to admit the patient. I also spoke on the phone with HEIKE Kohli with gastroenterology, who was agreeable to consult in this patient's care. A second IV placement was ordered and a repeat BMP is pending. Patient was stable and neurologically intact at time of admission. CRITICAL CARE NOTE: I have personally spent greater than 35 minutes of critical care time in the direct management of this patient. This includes bedside care, interpretation of diagnostic studies, and testing, discussion with consultants, patient, and family members, and other required patient management activities. This 35 minutes is in excess of all separately billable procedures. The chart was completed utilizing [employer] voice recognition software. Grammatical errors, random word insertions, pronoun errors, and incomplete sentences are an occasional consequence of this system due to software limitations, ambient noise, and hardware issues. Any formal questions or concerns about the content, text, or information contained within the body of this dictation should be directly addressed to the nurse practitioner for clarification. Past Med/Surg History Medical History Alcohol abuse Anxiety History of narcotic addiction Hypertension Migraine Nonischemic cardiomyopathy Surgical History History of dental surgery History of laparoscopic cholecystectomy Family History Grandfather (Paternal) Diabetes Grandmother (Maternal) Diabetes Social History Smoking Status: Never smoker Second Hand Exposure: No; Hx Alcohol Use: Yes Alcohol type: hard liquor Alcohol type Comment: and pt split 1 pint of liquor/week Alcohol Intake Frequency: 4 or More x per/Week Alcohol Intake Frequency Comment: 2-3 alcoholic beverages approx q. other day Hx Substance Use: No Preferred Language: Gibraltarian Communication Ability: Effective Manager Unit Required: No Beliefs That Will Affect Care: None marital status: Current Living Situation: Spouse How many Children do You have: 5 Other Information That Helps Us Care for You: No Feels Safe at Home: Yes Safety Concerns: Feels Safe At This Time Assistive Devices: None Allergies Allergies Allergy/AdvReac Type Severity Reaction Status Date / Time tramadol AdvReac Severe SEIZURES Verified 07/17/20 08:35 Home Meds Home Medications Medication Instructions Recorded Confirmed hydroxyzine HCl 50 mg PO Q6H PRN 07/17/20 07/17/20 losartan-hydrochlorothiazide 1 tab PO QAM 07/17/20 07/17/20 Previous Rx's Medication Instructions Recorded folic acid 1 mg PO QAM #30 tab 06/14/20 metoprolol tartrate 50 mg PO BID #60 tab 06/14/20 thiamine HCl (vitamin B1) [Vitamin 100 mg PO QAM #30 tab 06/14/20 B-1] Results & Data (ED) Vital Signs Vital Signs - 24 hr 07/17/20 08:15 07/17/20 08:54 07/17/20 09:35 Temperature 36.6 C Temperature Source Oral Pulse Rate 107 H Pulse Rate [Apical] 103 H 105 H Respiratory Rate 20 16 16 Respiratory Depth Normal Blood Pressure 114/75 Blood Pressure [Right Arm] 110/78 128/87 Blood Pressure Mean 88 Blood Pressure Mean [Right Arm] 88 100 Pulse Oximetry 96 97 Oxygen Delivery Method Room Air Room Air Sepsis Recent Fever Within 48 Hours No Sepsis New/Unexplained Change in Mental Status N/A Sepsis Action Taken by Nursing No Action Required 07/17/20 10:18 07/17/20 11:07 Temperature Temperature Source Pulse Rate Pulse Rate [Apical] 116 H 116 H Respiratory Rate 16 18 Respiratory Depth Blood Pressure Blood Pressure [Right Arm] 127/87 148/107 H Blood Pressure Mean Blood Pressure Mean [Right Arm] 100 120 Pulse Oximetry 100 96 Oxygen Delivery Method Room Air Room Air Sepsis Recent Fever Within 48 Hours Sepsis New/Unexplained Change in Mental Status Sepsis Action Taken by Nursing Laboratory Data Result diagrams: 07/17/20 08:38 07/17/20 11:33 Lab Results 07/17/20 07/17/20 07/17/20 Range/Units 08:38 08:38 08:38 WBC 16.61 H (4.8-10.8) K/uL RBC 4.29 (4.2-5.4) M/uL Hgb 15.5 (12.0-16.0) g/dL Hct 43.2 (37-47) % MCV 100.7 H (80-100) fL MCH 36.1 H (25-34) pg MCHC 35.9 (32-36) g/dL RDW Std Deviation 48.5 H (36.4-46.3) fL RDW Coeff of Hanna 13.3 (11.5-14.5) % Plt Count 212 (130-400) K/uL MPV 10.6 H (7.4-10.4) fL Immature Gran % (Auto) 0.5 % Neut % (Auto) 89.5 % Lymph % (Auto) 3.0 % Austin % (Auto) 7.0 % Eos % (Auto) 0.0 % Baso % (Auto) 0.0 % Neut # (Auto) 14.87 H (1.4-6.5) K/uL Lymph # (Auto) 0.50 L (1.2-3.4) K/uL Austin # (Auto) 1.16 H (0.11-0.59) K/uL Eos # (Auto) 0.00 (0-0.5) K/uL Baso # (Auto) 0.00 (0-0.2) K/uL Immature Gran # (Auto) 0.08 H (0.00-0.02) K/uL PT (9.0-12.0) Seconds INR (0.9-1.1) APTT (21.0-31.0) Seconds PTT Ratio VBG pH (7.36-7.41) VBG pCO2 (38-50) mmHg VBG pO2 mmHg VBG HCO3 mmol/L VBG O2 Saturation % VBG Base Excess mEq/L Barometric Pressure mm/Hg Sodium 124 L (136-145) mmol/L Potassium 2.9 L (3.5-5.1) mmol/L Chloride 82 L (98-107) mmol/L Carbon Dioxide 11 L (21-32) mmol/L Anion Gap 32.0 H (3-11) BUN 26 H (7-18) mg/dl Creatinine 4.10 H (0.6-1.2) mg/dl Est Cr Clr Drug Dosing 16.7 ml/min Est GFR ( Amer) 14.8 Est GFR (Non-Af Amer) 12.8 BUN/Creatinine Ratio 6.3 L (10-20) Glucose 38 L* (70-99) mg/dl POC Glucose (70-99) mg/dl Osmolality (280-300) mOsm/kg Lactate (0.4-2.0) mmol/L Calcium 7.2 L (8.5-10.1) mg/dl Magnesium 2.6 H (1.8-2.4) mg/dl Total Bilirubin 3.9 H (0.2-1) mg/dl AST 318 H (15-37) U/L ALT 84 H (12-78) U/L Alkaline Phosphatase 106 (45-117) U/L Ammonia (11-32) umol/L Total Protein 7.1 (6.4-8.2) gm/dl Albumin 3.5 (3.4-5.0) gm/dl Globulin 3.6 (2.5-4.0) gm/dl Albumin/Globulin Ratio 1.0 (0.9-2) Lipase 26348 H (73-393) U/L Procalcitonin (0-0.5) ng/ml TSH 0.754 (0.300-4.500) uIu/ml HCG, Qual (Negative) Salicylates Acetaminophen Ethyl Alcohol mg/dL < 3.0 (0-3) mg/dl 07/17/20 07/17/20 07/17/20 Range/Units 08:38 08:38 08:38 WBC (4.8-10.8) K/uL RBC (4.2-5.4) M/uL Hgb (12.0-16.0) g/dL Hct (37-47) % MCV (80-100) fL MCH (25-34) pg MCHC (32-36) g/dL RDW Std Deviation (36.4-46.3) fL RDW Coeff of Hanna (11.5-14.5) % Plt Count (130-400) K/uL MPV (7.4-10.4) fL Immature Gran % (Auto) % Neut % (Auto) % Lymph % (Auto) % Austin % (Auto) % Eos % (Auto) % Baso % (Auto) % Neut # (Auto) (1.4-6.5) K/uL Lymph # (Auto) (1.2-3.4) K/uL Austin # (Auto) (0.11-0.59) K/uL Eos # (Auto) (0-0.5) K/uL Baso # (Auto) (0-0.2) K/uL Immature Gran # (Auto) (0.00-0.02) K/uL PT 13.9 H (9.0-12.0) Seconds INR 1.3 H (0.9-1.1) APTT 27.1 (21.0-31.0) Seconds PTT Ratio 1.0 VBG pH (7.36-7.41) VBG pCO2 (38-50) mmHg VBG pO2 mmHg VBG HCO3 mmol/L VBG O2 Saturation % VBG Base Excess mEq/L Barometric Pressure mm/Hg Sodium (136-145) mmol/L Potassium (3.5-5.1) mmol/L Chloride (98-107) mmol/L Carbon Dioxide (21-32) mmol/L Anion Gap (3-11) BUN (7-18) mg/dl Creatinine (0.6-1.2) mg/dl Est Cr Clr Drug Dosing ml/min Est GFR ( Amer) Est GFR (Non-Af Amer) BUN/Creatinine Ratio (10-20) Glucose (70-99) mg/dl POC Glucose (70-99) mg/dl Osmolality (280-300) mOsm/kg Lactate (0.4-2.0) mmol/L Calcium (8.5-10.1) mg/dl Magnesium (1.8-2.4) mg/dl Total Bilirubin (0.2-1) mg/dl AST (15-37) U/L ALT (12-78) U/L Alkaline Phosphatase (45-117) U/L Ammonia (11-32) umol/L Total Protein (6.4-8.2) gm/dl Albumin (3.4-5.0) gm/dl Globulin (2.5-4.0) gm/dl Albumin/Globulin Ratio (0.9-2) Lipase (73-393) U/L Procalcitonin (0-0.5) ng/ml TSH (0.300-4.500) uIu/ml HCG, Qual Negative (Negative) Salicylates Cancelled Acetaminophen Cancelled Ethyl Alcohol mg/dL (0-3) mg/dl 07/17/20 07/17/20 07/17/20 Range/Units 08:38 10:01 10:01 WBC (4.8-10.8) K/uL RBC (4.2-5.4) M/uL Hgb (12.0-16.0) g/dL Hct (37-47) % MCV (80-100) fL MCH (25-34) pg MCHC (32-36) g/dL RDW Std Deviation (36.4-46.3) fL RDW Coeff of Hanna (11.5-14.5) % Plt Count (130-400) K/uL MPV (7.4-10.4) fL Immature Gran % (Auto) % Neut % (Auto) % Lymph % (Auto) % [place] % (Auto) % Eos % (Auto) % Baso % (Auto) % Neut # (Auto) (1.4-6.5) K/uL Lymph # (Auto) (1.2-3.4) K/uL [place] # (Auto) (0.11-0.59) K/uL Eos # (Auto) (0-0.5) K/uL Baso # (Auto) (0-0.2) K/uL Immature Gran # (Auto) (0.00-0.02) K/uL PT (9.0-12.0) Seconds INR (0.9-1.1) APTT (21.0-31.0) Seconds PTT Ratio VBG pH (7.36-7.41) VBG pCO2 (38-50) mmHg VBG pO2 mmHg VBG HCO3 mmol/L VBG O2 Saturation % VBG Base Excess mEq/L Barometric Pressure mm/Hg Sodium (136-145) mmol/L Potassium (3.5-5.1) mmol/L Chloride (98-107) mmol/L Carbon Dioxide (21-32) mmol/L Anion Gap (3-11) BUN (7-18) mg/dl Creatinine (0.6-1.2) mg/dl Est Cr Clr Drug Dosing ml/min Est GFR ( Amer) Est GFR (Non-Af Amer) BUN/Creatinine Ratio (10-20) Glucose (70-99) mg/dl POC Glucose (70-99) mg/dl Osmolality 283 (280-300) mOsm/kg Lactate 3.3 H* (0.4-2.0) mmol/L Calcium (8.5-10.1) mg/dl Magnesium (1.8-2.4) mg/dl Total Bilirubin (0.2-1) mg/dl AST (15-37) U/L ALT (12-78) U/L Alkaline Phosphatase (45-117) U/L Ammonia (11-32) umol/L Total Protein (6.4-8.2) gm/dl Albumin (3.4-5.0) gm/dl Globulin (2.5-4.0) gm/dl Albumin/Globulin Ratio (0.9-2) Lipase (73-393) U/L Procalcitonin 0.73 H (0-0.5) ng/ml TSH (0.300-4.500) uIu/ml HCG, Qual (Negative) Salicylates Acetaminophen Ethyl Alcohol mg/dL (0-3) mg/dl 07/17/20 07/17/20 07/17/20 Range/Units 10:01 10:01 10:01 WBC (4.8-10.8) K/uL RBC (4.2-5.4) M/uL Hgb (12.0-16.0) g/dL Hct (37-47) % MCV (80-100) fL MCH (25-34) pg MCHC (32-36) g/dL RDW Std Deviation (36.4-46.3) fL RDW Coeff of Hanna (11.5-14.5) % Plt Count (130-400) K/uL MPV (7.4-10.4) fL Immature Gran % (Auto) % Neut % (Auto) % Lymph % (Auto) % [place] % (Auto) % Eos % (Auto) % Baso % (Auto) % Neut # (Auto) (1.4-6.5) K/uL Lymph # (Auto) (1.2-3.4) K/uL [place] # (Auto) (0.11-0.59) K/uL Eos # (Auto) (0-0.5) K/uL Baso # (Auto) (0-0.2) K/uL Immature Gran # (Auto) (0.00-0.02) K/uL PT (9.0-12.0) Seconds INR (0.9-1.1) APTT (21.0-31.0) Seconds PTT Ratio VBG pH 7.19 L (7.36-7.41) VBG pCO2 36 L (38-50) mmHg VBG pO2 33 mmHg VBG HCO3 13 mmol/L VBG O2 Saturation < 60.0 % VBG Base Excess -14.0 mEq/L Barometric Pressure 729.2 mm/Hg Sodium (136-145) mmol/L Potassium (3.5-5.1) mmol/L Chloride (98-107) mmol/L Carbon Dioxide (21-32) mmol/L Anion Gap (3-11) BUN (7-18) mg/dl Creatinine (0.6-1.2) mg/dl Est Cr Clr Drug Dosing ml/min Est GFR ( Amer) Est GFR (Non-Af Amer) BUN/Creatinine Ratio (10-20) Glucose (70-99) mg/dl POC Glucose (70-99) mg/dl Osmolality (280-300) mOsm/kg Lactate (0.4-2.0) mmol/L Calcium (8.5-10.1) mg/dl Magnesium (1.8-2.4) mg/dl Total Bilirubin (0.2-1) mg/dl AST (15-37) U/L ALT (12-78) U/L Alkaline Phosphatase (45-117) U/L Ammonia 34.9 H (11-32) umol/L Total Protein (6.4-8.2) gm/dl Albumin (3.4-5.0) gm/dl Globulin (2.5-4.0) gm/dl Albumin/Globulin Ratio (0.9-2) Lipase (73-393) U/L Procalcitonin (0-0.5) ng/ml TSH (0.300-4.500) uIu/ml HCG, Qual (Negative) Salicylates Cancelled Acetaminophen Cancelled Ethyl Alcohol mg/dL (0-3) mg/dl 07/17/20 Range/Units 10:15 WBC (4.8-10.8) K/uL RBC (4.2-5.4) M/uL Hgb (12.0-16.0) g/dL Hct (37-47) % MCV (80-100) fL MCH (25-34) pg MCHC (32-36) g/dL RDW Std Deviation (36.4-46.3) fL RDW Coeff of Hanna (11.5-14.5) % Plt Count (130-400) K/uL MPV (7.4-10.4) fL Immature Gran % (Auto) % Neut % (Auto) % Lymph % (Auto) % Austin % (Auto) % Eos % (Auto) % Baso % (Auto) % Neut # (Auto) (1.4-6.5) K/uL Lymph # (Auto) (1.2-3.4) K/uL Austin # (Auto) (0.11-0.59) K/uL Eos # (Auto) (0-0.5) K/uL Baso # (Auto) (0-0.2) K/uL Immature Gran # (Auto) (0.00-0.02) K/uL PT (9.0-12.0) Seconds INR (0.9-1.1) APTT (21.0-31.0) Seconds PTT Ratio VBG pH (7.36-7.41) VBG pCO2 (38-50) mmHg VBG pO2 mmHg VBG HCO3 mmol/L VBG O2 Saturation % VBG Base Excess mEq/L Barometric Pressure mm/Hg Sodium (136-145) mmol/L Potassium (3.5-5.1) mmol/L Chloride (98-107) mmol/L Carbon Dioxide (21-32) mmol/L Anion Gap (3-11) BUN (7-18) mg/dl Creatinine (0.6-1.2) mg/dl Est Cr Clr Drug Dosing ml/min Est GFR ( Amer) Est GFR (Non-Af Amer) BUN/Creatinine Ratio (10-20) Glucose (70-99) mg/dl POC Glucose 158 H (70-99) mg/dl Osmolality (280-300) mOsm/kg Lactate (0.4-2.0) mmol/L Calcium (8.5-10.1) mg/dl Magnesium (1.8-2.4) mg/dl Total Bilirubin (0.2-1) mg/dl AST (15-37) U/L ALT (12-78) U/L Alkaline Phosphatase (45-117) U/L Ammonia (11-32) umol/L Total Protein (6.4-8.2) gm/dl Albumin (3.4-5.0) gm/dl Globulin (2.5-4.0) gm/dl Albumin/Globulin Ratio (0.9-2) Lipase (73-393) U/L Procalcitonin (0-0.5) ng/ml TSH (0.300-4.500) uIu/ml HCG, Qual (Negative) Salicylates Acetaminophen Ethyl Alcohol mg/dL (0-3) mg/dl Administered Medications Sodium Chloride (Nss 1000ml) 1,000 mls @ 200 mls/hr IV .Q5H DONOVAN Stop: 08/16/20 12:59 Last Admin: 07/17/20 13:34 Dose: 200 mls/hr Documented by: [id number] Potassium Chloride (K Derek / Wtr) 10 meq in 100 mls @ 100 mls/hr IV Q1H DONOVAN Stop: 07/17/20 16:59 Last Admin: 07/17/20 14:24 Dose: 100 mls/hr Documented by: [id number] Ondansetron HCl (Ondansetron Inj 2 Mg/Ml 2 Ml Vial) 4 mg IV Q4H PRN PRN Reason: Nausea Stop: 08/16/20 13:50 Last Admin: 07/17/20 14:22 Dose: 4 mg Documented by: [id number] Discontinued Medications Dextrose (Dextrose 50% 50 Ml Syringe) 50 ml IV NOW ONE Stop: 07/17/20 09:23 Last Admin: 07/17/20 09:33 Dose: 50 ml Documented by: [id number] Fentanyl Citrate (Fentanyl Citrate 100 Mcg/2 Ml Vial) 25 mcg IV NOW STA Stop: 07/17/20 08:19 Last Admin: 07/17/20 08:32 Dose: 25 mcg Documented by: [id number] Fentanyl Citrate (Fentanyl Citrate 100 Mcg/2 Ml Vial) 50 mcg IV NOW STA Stop: 07/17/20 10:23 Last Admin: 07/17/20 11:06 Dose: 50 mcg Documented by: [id number] Hydromorphone HCl (Hydromorphone Inj 0.5 Mg/0.5 Ml Syr) 0.5 mg IV NOW STA Stop: 07/17/20 13:54 Last Admin: 07/17/20 14:21 Dose: 0.5 mg Documented by: [id number] Sodium Chloride (Nss 1000ml) 1,000 mls @ 999 mls/hr IV .Q1H1M DONOVAN Stop: 07/17/20 09:30 Last Infusion: 07/17/20 10:01 Dose: 0 mls/hr Documented by: [id number] Admin: 07/17/20 08:32 Dose: 999 mls/hr Documented by: [id number] Folic Acid 1 mg/ Syringe 10 mls @ 5 mls/min IV NOW STA Stop: 07/17/20 08:23 Last Admin: 07/17/20 08:52 Dose: 5 mls/min Documented by: [id number] Thiamine HCl 200 mg/ Sodium (Chloride) 52 mls @ 208 mls/hr IV NOW STA Stop: 07/17/20 08:36 Last Infusion: 07/17/20 09:10 Dose: 0 mls/hr Documented by: [id number] Admin: 07/17/20 08:53 Dose: 208 mls/hr Documented by: [id number] Potassium Chloride (K Derek / Wtr) 10 meq in 100 mls @ 100 mls/hr IV Q1H DONOVAN Stop: 07/17/20 11:29 Last Infusion: 07/17/20 12:42 Dose: 0 mls/hr Documented by: [id number] Admin: 07/17/20 11:50 Dose: 100 mls/hr Documented by: [id number] Infusion: 07/17/20 11:26 Dose: 0 mls/hr Documented by: [id number] Admin: 07/17/20 10:16 Dose: 100 mls/hr Documented by: [id number] Cefepime HCl (Maxipime) 2,000 mg in 20 mls @ 5 mls/min IV NOW STA; Protocol Stop: 07/17/20 10:51 Last Admin: 07/17/20 11:05 Dose: 5 mls/min Documented by: [id number] Calcium Gluconate 1,000 mg/ (Sodium Chloride) 60 mls @ 240 mls/hr IV NOW ONE Stop: 07/17/20 14:14 Last Infusion: 07/17/20 14:27 Dose: 0 mls/hr Documented by: [id number] Admin: 07/17/20 13:57 Dose: 240 mls/hr Documented by: [id number] Ioversol (Ioversol 100ml) 93 ml IV ONCE ONE Stop: 07/17/20 08:27 Last Admin: 07/17/20 08:27 Dose: 93 ml Documented by: [id number] Ondansetron HCl (Ondansetron Inj 2 Mg/Ml 2 Ml Vial) 4 mg IV NOW STA Stop: 07/17/20 08:19 Last Admin: 07/17/20 08:32 Dose: 4 mg Documented by: [id number] Discharge Plan Visit Data Chief Complaint: Vomiting ED Provider: Jeff Noel ED Midlevel Provider: Michelle Clancy Discharge Problem: Acute pancreatitis, Acute kidney injury, Elevated lactic acid level, Elevated liver enzymes, Acute hyponatremia, Hypoglycemia, Hypokalemia, Episode of unresponsiveness, High anion gap metabolic acidosis Patient Disposition: Admitted As Inpatient Discharge Instructions Interventions: ED Discharge Assessment Last Done: 07/17/20 13:03 Discharge Problem: Acute pancreatitis Qualifiers: Pancreatitis type: alcohol induced Acute pancreatitis complication: unspecified Qualified Code(s): K85.20 - Alcohol induced acute pancreatitis without necrosis or infection
[2020-07-17] MEDS ORDERED: IOVERSOL 100ml IV ONE (08:26)
[2020-07-17] MEDS ORDERED: SODIUM CHLORIDE 0.9% 1000ML 1,000 ML IV SCH (08:30)
[2020-07-17 08:52] LABS: Hematocrit (blood only) 43.2 % (37-47); Hemoglobin 15.5 g/dL (12.0-16.0); Immature Granulocytes # (auto) 0.08 K/uL (0.00-0.02); Immature Granulocytes % (auto) 0.5 %; Mean Corpuscular Hemoglobin 36.1 pg (25-34); Mean Corpuscular Hgb Conc 35.9 g/dL (32-36); Mean Corpuscular Volume 100.7 fL (80-100); Mean Platelet Volume 10.6 fL (7.4-10.4); Monocytes # (auto) 1.16 K/uL (0.11-0.59); Neutrophils # (auto) 14.87 K/uL (1.4-6.5); Neutrophils % (auto) 89.5 %; Platelet Count 212 K/uL (130-400); RDW Coefficient of Variation 13.3 % (11.5-14.5); RDW Standard Deviation 48.5 fL (36.4-46.3); Red Blood Count 4.29 M/uL (4.2-5.4); White Blood Count 16.61 K/uL (4.8-10.8)
--- NOTE | 2020-07-17 08:52 | XRay Report ---
XR chest 1V portable CLINICAL HISTORY: fall down stairs, trauma CHEST PAIN COMPARISON STUDY: 06/29/2020 FINDINGS: The cardiac and mediastinal contours are normal. There is no evidence of focal pulmonary co nsolidation. There is no evidence of failure. No pleural effusions are visualized.[No pneumothorax is visualized. IMPRESSION: No active disease in the chest. ACT 112: Negative or not required by law. Electronically signed by: Andrade Singh M.D. 07/17/2020 8:51 AM
[2020-07-17 09:20] LABS: Albumin Level 3.5 gm/dl (3.4-5.0); BUN Creatinine Ratio 6.3 (10-20); Calcium 7.2 mg/dl (8.5-10.1); Creatinine Clr Calc Pharmacy 16.7 ml/min; Est GFR (African American) 14.8; Est GFR (Non-African American) 12.8; Magnesium 2.6 mg/dl (1.8-2.4); Potassium 2.9 mmol/L (3.5-5.1)
[2020-07-17] MEDS ORDERED: DEXTROSE 50% 50 ML SYRINGE IV ONE (09:22)
[2020-07-17 09:23] LABS: Bilirubin,Total 3.9 mg/dl (0.2-1); Globulin 3.6 gm/dl (2.5-4.0); Thyroid Stimulating Hormone 0.754 uIu/ml (0.300-4.500); Total Protein 7.1 gm/dl (6.4-8.2)
[2020-07-17 09:26] LABS: Pregnancy Test, Serum Negative (Negative)
[2020-07-17 09:39] LABS: INR 1.3 (0.9-1.1); Partial Thromboplastin Time 27.1 Seconds (21.0-31.0); Prothrombin Time 13.9 Seconds (9.0-12.0)
[2020-07-17] MEDS: POTASSIUM CHLORIDE / WTR 10 MEQ/100 ML PLCT IV SCH ×7 (10:16→21:46)
[2020-07-17 10:24] LABS: HCO3 VBG 13 mmol/L; PCO2 VBG 36 mmHg (38-50); PO2 VBG 33 mmHg; pH VBG 7.19 (7.36-7.41)
[2020-07-17 10:25] LABS: Oxygen Saturation VBG < 60.0 %
--- NOTE | 2020-07-17 10:37 | CT Scan Report ---
CT head/brain wo con CLINICAL HISTORY: Head pain status post trauma COMPARISON STUDY: June 19, 2020 TECHNIQUE: Axial CT of the brain is performed from the vertex to the skull base. IV contrast was not administered for this examination. A dose lowering technique was utilized adhering to the principles of ALARA. CT DOSE: FINDINGS: No intra or extra-axial mass lesions are visualized. There is no CT evidence of acute cortical infarc tion. There is no evidence of midline shift. There is no acute hemorrhage. No calvarial fractures ar e visualized. There is no evidence of pathologic ventricular dilatation. There is no evidence of acute sinusitis IMPRESSION: No acute intracranial findings ACT 112: Negative or not required by law. Electronically signed by: Andrade Singh M.D. 07/17/2020 10:35 AM
--- NOTE | 2020-07-17 10:39 | CT Scan Report ---
CT OF THE CERVICAL SPINE WITHOUT CONTRAST CLINICAL HISTORY: fall down stairs, trauma COMPARISON STUDY: No previous studies for comparison. TECHNIQUE: Helical axial images of the cervical spine were obtained without IV contrast. Sagittal a nd coronal reconstructions were viewed. Automated exposure control was utilized for the study. A do se lowering technique was utilized adhering to the principles of ALARA. FINDINGS: Alignment of the cervical spine is anatomic. Vertebral body heights are maintained. No acut e cervical spine fracture or subluxation is present. There is no prevertebral edema. Facet joints are intact. 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 IMPRESSION: No acute cervical spine fracture or subluxation. ACT 112: Negative or not required by law. Electronically signed by: Remi Arizmendi M.D. 07/17/2020 10:37 AM
--- NOTE | 2020-07-17 10:47 | CT Scan Report ---
CT SCAN OF THE ABDOMEN AND PELVIS WITHOUT CONTRAST CLINICAL HISTORY: Diffuse abdominal pain status post trauma. Fall down stairs. COMPARISON STUDY: CT scan dated 06/01/2010, CT scan of the chest dated 06/19/2020 TECHNIQUE: CT scan of the abdomen and pelvis was performed from the lung bases to the proximal femurs . Images are reviewed in the axial, sagittal, and coronal planes. IV contrast was not administered fo r this examination. A dose lowering technique was utilized adhering to the principles of ALARA. CT DOSE: FINDINGS: Lower chest: There is no pneumothorax. There are no pleural effusions. There is minor basilar atelect asis. Liver: There is severe hepatic steatosis. No focal masses are visualized in this noncontrast study. Gallbladder: Surgically absent Spleen: Normal in size and attenuation. Pancreas: No intrinsic pancreatic lesions are visualized. There is infiltration of the peripancreatic fat. Adrenal glands: Unremarkable. Kidneys: There is a nonobstructing 3 mm right renal calculus. There is no hydronephrosis. Bowel: There are no transition zones to indicate bowel obstruction. There is no evidence of acute div erticulitis. The appendix appears normal. Peritoneum: There is trace perisplenic fluid. There is trace fluid within the paracolic gutters. Ther e is mild mesenteric edema. There is a small fat-containing umbilical hernia. There is fluid within a mildly dilated distal esophagus. Vasculature: The abdominal aorta is normal in course and caliber. Adenopathy: None. Pelvic viscera: The bladder, and pelvic viscera are unremarkable. Skeletal structures: No fractures are visualized. IMPRESSION: 1. Interval development of severe hepatic steatosis. The interval manager change one month would be cons istent with acute alcoholic steatohepatitis. 2. Infiltration of the pancreatic fat. The findings are suggestive of pancreatitis. Acute traumatic p ancreatitis could appear similar but is statistically less likely than alcoholic pancreatitis. 3. Trace ascites, likely secondary to liver disease and pancreatitis 4. Nonobstructing right renal calculus 5. Dilated fluid-filled distal esophagus 6. No convincing evidence of acute traumatic injury given the limitations of a noncontrast study ACT 112: Negative or not required by law. Electronically signed by: Andrade Singh M.D. 07/17/2020 10:46 AM
[2020-07-17] MEDS ORDERED: CEFEPIME 2,000 MG/20 ML VIAL IV STA (10:48)
--- NOTE | 2020-07-17 10:48 | CT Scan Report ---
CT OF THE CHEST WITHOUT IV CONTRAST CLINICAL HISTORY: abd pain/vomiting/hx of etoh abuse. COMPARISON STUDY: Chest CT June 19, 2020. Chest radiograph performed earlier today. CT DOSE: 1834.77 mGy.cm TECHNIQUE: Axial images of the chest were obtained without IV contrast. Images were reviewed in the axial, sagittal, and coronal planes. IV contrast was not administered for this examination. Automat ed exposure control was utilized for the study. A dose lowering technique was utilized adhering to t he principles of ALARA. FINDINGS: The esophagus is fluid-filled and mildly dilated. No mediastinal hematoma is identified. S ize of the heart is normal. There is no pericardial effusion. Subpleural right lung opacity reflects atelectasis. There is no pneumothorax. There are no suspicious pulmonary nodules. The central airways are patent. No acute rib or thoracic spine fracture is noted. Slight concavity of the superior endpl ates of several thoracic vertebral bodies is unchanged since PET/CT of June 19, 2020. CT of the a bdomen and pelvis will be reported separately. Marked fatty infiltration liver is noted with peripanc reatic infiltration consistent with acute pancreatitis. IMPRESSION: 1. No acute process within the chest. 2. Peripancreatic infiltration consistent with acute pancreatitis. Marked fatty infiltration of the l iver. 3. Mildly dilated fluid-filled esophagus. ACT 112: Negative or not required by law. Electronically signed by: Remi Arizmendi M.D. 07/17/2020 10:47 AM
--- NOTE | 2020-07-17 12:08 | History & Physical Report ---
Date of Service July 17, 2020 Assessment & Plan (1) Episode of unresponsiveness: Patient had episode of unresponsiveness this morning, Narcan was given by her , initially she was not getting much better but then she recovered Currently she is alert and oriented and answering questions appropriately History of alcohol abuse and not feeling well for past 3 days Likely secondary to multiple critical medical issues as listed below (2) Acute pancreatitis: Patient presents with abdominal pain in upper quadrants, lipase elevated at 22,000, CT abdomen pelvis significant for acute pancreatitis Patient received 1 L of normal saline in the ED, received fentanyl for pain in the ED, and zofran Continue n.p.o., and IV fluids We will consult GI (3) Elevated liver enzymes: AST elevated at 318, ALT 84, T bili 3.9 AST significantly elevated compared to ALT, consistent with alcoholic liver disease Maddrey score 8.0, no need for steroid at this time CT images significant for acute pancreatitis and hepatic steatosis Will further discuss with GI We will closely monitor (4) Acute kidney injury: Patient presents with severe ROXANA, creatinine 4, BUN 26 No prior history of kidney disease Likely secondary to dehydration, history of vomiting for past 2 to 3 days and very poor oral intake IV fluids started in ED, will continue to closely monitor, repeat BMP ordered Nephrology consult (5) High anion gap metabolic acidosis: Patient presents with metabolic acidosis, bicarb 11, pH 7.19 on VBG Lactate elevated at 3.3 Likely secondary to vomiting for several days, poor oral intake, infection cannot be ruled out at this time We will continue to closely monitor, repeat BMP ordered in the ED currently pending (6) Elevated lactic acid level: (7) Lactic acidosis: Lactic acid 3.3 Possibly secondary to dehydration, patient has been vomiting for past 2 to 3 days Infection cannot be ruled out at this time Patient received IV fluids in the ED, and cefepime Repeat lactic acid ordered, will continue to closely monitor (8) Acute hyponatremia: Sodium in the ED 124, chloride 82, likely secondary to dehydration normal saline given in the ED Repeat BMP ordered We will continue to closely monitor (9) Hypoglycemia: Glucose level only 38 in the ED Likely secondary to poor oral intake lately and vomiting We will continue closely monitor (10) Hypokalemia: Potassium low at 2.9 in the ED Patient received IV potassium replacement Repeat BMP ordered We will continue to monitor and replete as necessary (11) Alcohol abuse: Patient reports drinking liquor on regular basis Last drink about 3 days ago She has been feeling sick, vomiting for past 2 to 3 days At home she is been taking folic acid, thiamine, but did not take any medications in the past couple of days due to feeling poorly Continue IV thiamine, IV folic acid Patient took Ativan at home to help with withdrawal symptoms, however she feels it made her feel feel worse, and she was vomiting We will continue to closely monitor, currently patient is n.p.o., will provide IV Ativan as needed (12) NICM (nonischemic cardiomyopathy): (13) Hypertension: History of hypertension, and nonischemic cardiomyopathy, with with mildly reduced LV systolic function with mild global hypokinesis, EF 45 to 50%, She was started on metoprolol, losartan, HCTZ Will hold diuretics for now as patient appears very dehydrated Continue metoprolol Dit: NPO DVT ppx: SCDs Code: Full History of Present Illness Chief Complaint: Episode of unresponsiveness Primary Care Provider: Peterson Lr MD Patient is a 39-year-old female with history of alcohol abuse, anxiety, hypertension, likely nonischemic cardiomyopathy, with mildly reduced LV systolic function with mild global hypokinesis, EF 45 to 50%, who presents with abdominal pain, weakness, and episode of unresponsiveness. Patient states that she has been feeling poorly for past 2 to 3 days, she also reports that she quit drinking about 3 days ago. She has been vomiting for past 2 to 3 days, and had very poor oral intake. She has been very weak and dizzy, and fell about 3 times at home. Her reported in the ED, that as she was at the end of the staircase, she had episodes of unresponsiveness and he administered Narcan. At first it did not seem to work however she then recovered. Patient's is not currently at the bedside. However patient is alert and oriented and answering all questions appropriately. Currently her main concern is abdominal discomfort in her upper quadrants. She denies any fevers or chills. Denies any palpitations edema, shortness of breath, burning with urination or frequent urination. However she states that she did not void today. She says that she urinated several times yesterday afternoon. She also had a bowel movement yesterday which she reports normal, no blood in the stool or diarrhea. In the emergency room, white blood cell count was elevated at 16.6 thousand, glucose was low at 38, creatinine elevated at 4, pH 7.19, lactate 3.3, lipase 22,000, pro-Edmond 0.73, AST 318, ALT 84, T bili 3.9. Sodium low at 124, potassium 2.9, chloride 82. Images significant for acute pancreatitis. In the ED she received 1 L of normal saline, IV potassium, cefepime, thiamine and folic acid, and fentanyl for pain. Allergies Allergy/AdvReac Type Severity Reaction Status Date / Time tramadol AdvReac Severe SEIZURES Verified 07/17/20 08:35 Home Medications Home Medications Medication Instructions Recorded Confirmed Type folic acid 1 mg PO QAM #30 tab 06/14/20 07/17/20 Rx metoprolol tartrate 50 mg PO BID #60 tab 06/14/20 07/17/20 Rx thiamine HCl (vitamin B1) [Vitamin 100 mg PO QAM #30 tab 06/14/20 07/17/20 Rx B-1] hydroxyzine HCl 50 mg PO Q6H PRN 07/17/20 07/17/20 History losartan-hydrochlorothiazide 1 tab PO QAM 07/17/20 07/17/20 History Past Med/Surg History Medical History (Updated 07/17/20 @ 12:32 by Paulino Higginbotham MD) Alcohol abuse Anxiety History of narcotic addiction Hypertension Migraine Nonischemic cardiomyopathy Surgical History History of dental surgery History of laparoscopic cholecystectomy Family History Grandfather (Paternal) Diabetes Grandmother (Maternal) Diabetes Social History Smoking Status: Never smoker Second Hand Exposure: No; Hx Alcohol Use: Yes Alcohol type: hard liquor Alcohol type Comment: and pt split 1 pint of liquor/week Alcohol Intake Frequency: 4 or More x per/Week Alcohol Intake Frequency Comment: 2-3 alcoholic beverages approx q. other day Hx Substance Use: No Preferred Language: Emir[place] Communication Ability: Effective Concrete Engineering Technician Required: No Beliefs That Will Affect Care: None marital status: Current Living Situation: Spouse and Family How many Children do You have: 5 Feels Safe at Home: Yes Assistive Devices: None Review of Systems Review of Systems: All systems reviewed & are unremarkable except as noted in HPI & below Constitutional: no fever and no chills Eyes: no problem reported Ear, Nose, Mouth, Throat: no problem reported Respiratory: no cough and no dyspnea Cardiovascular: no chest pain, no palpitations and no edema Gastrointestinal: + abdominal pain (upper quadrants) Genitourinary: No urine output today Musculoskeletal: no problem reported Integumentary: no problem reported Neurologic: + dizziness [place] weak and dizzy, then reported by short episode of unresponsiveness Psychiatric: no problem reported Endocrine: no problem reported Hematologic / Lymphatic: no problem reported Allergy / Immunological: no problem reported Physical Exam Physical Exam: Patient is currently lying in bed, in no acute distress, she is able to answer questions appropriately, complains of upper quadrants abdominal pain Constitutional: WD/WN, vitals as above no acute distress Eyes: PERRL, conjunctivae normal, anicteric sclerae EOM intact bilaterally ENMT: external ear and nose normal, oropharynx normal Neck: trachea midline, no thyromegaly normal visual inspection Respiratory: normal respiratory effort, lungs clear to auscultation Auscultation: no crackles, no rhonchi and no wheezes Cardiovascular: RRR, no murmur, no edema Extremities: no edema Chest (Breasts): Chest: normal inspection of chest Gastrointestinal (Abdomen): Inspection/Auscultation: abdomen normal to inspection and + abdomen distended Percussion/Palpation: + abdomen tender (To palpation upper abdominal quadrants) and abdomen soft; no guarding and abdomen not rigid Bowel sounds sluggish Musculoskeletal: no cyanosis or clubbing, extremities motor strength 5/5 Head/Neck/Chest: normocephalic and head atraumatic Skin: no rashes, warm and dry Neurologic: PERRL, EOMI, accommodation nl, no face palsy, no dysarthria moves all extremities Psychiatric: A+Ox3, euthymic affect Genitourinary: No CVA tenderness Results & Data Results & Data ([facility]) Vital Signs (Past 12 Hours) Vital Signs Temp Pulse Pulse Resp BP BP Pulse Ox 07/17/20 11:07 116 H 18 148/107 H 96 07/17/20 10:18 116 H 16 127/87 100 07/17/20 09:35 105 H 16 128/87 07/17/20 08:54 103 H 16 110/78 97 07/17/20 08:15 36.6 C 107 H 20 114/75 96 Laboratory Results 07/17/20 07/17/20 07/17/20 Range/Units 11:55 11:33 10:15 WBC (4.8-10.8) K/uL RBC (4.2-5.4) M/uL Hgb (12.0-16.0) g/dL Hct (37-47) % MCV (80-100) fL MCH (25-34) pg MCHC (32-36) g/dL RDW Std Deviation (36.4-46.3) fL RDW Coeff of Hanna (11.5-14.5) % Plt Count (130-400) K/uL MPV (7.4-10.4) fL Immature Gran % (Auto) % Neut % (Auto) % Lymph % (Auto) % [place] % (Auto) % Eos % (Auto) % Baso % (Auto) % Neut # (Auto) (1.4-6.5) K/uL Lymph # (Auto) (1.2-3.4) K/uL [place] # (Auto) (0.11-0.59) K/uL Eos # (Auto) (0-0.5) K/uL Baso # (Auto) (0-0.2) K/uL Immature Gran # (Auto) (0.00-0.02) K/uL PT (9.0-12.0) Seconds INR (0.9-1.1) APTT (21.0-31.0) Seconds PTT Ratio VBG pH (7.36-7.41) VBG pCO2 (38-50) mmHg VBG pO2 mmHg VBG HCO3 mmol/L VBG O2 Saturation % VBG Base Excess mEq/L Barometric Pressure mm/Hg Sodium Pending (136-145) mmol/L Potassium Pending (3.5-5.1) mmol/L Chloride Pending (98-107) mmol/L Carbon Dioxide Pending (21-32) mmol/L Anion Gap Pending (3-11) BUN Pending (7-18) mg/dl Creatinine Pending (0.6-1.2) mg/dl Est Cr Clr Drug Dosing Pending ml/min Est GFR ( Amer) Pending Est GFR (Non-Af Amer) Pending BUN/Creatinine Ratio Pending (10-20) Glucose Pending (70-99) mg/dl POC Glucose 158 H (70-99) mg/dl Osmolality (280-300) mOsm/kg Lactate Pending (0.4-2.0) mmol/L Calcium Pending (8.5-10.1) mg/dl Magnesium (1.8-2.4) mg/dl Total Bilirubin (0.2-1) mg/dl AST (15-37) U/L ALT (12-78) U/L Alkaline Phosphatase (45-117) U/L Ammonia (11-32) umol/L Total Protein (6.4-8.2) gm/dl Albumin (3.4-5.0) gm/dl Globulin (2.5-4.0) gm/dl Albumin/Globulin Ratio (0.9-2) Lipase (73-393) U/L Procalcitonin (0-0.5) ng/ml TSH (0.300-4.500) uIu/ml HCG, Qual (Negative) Salicylates Acetaminophen Ethyl Alcohol mg/dL (0-3) mg/dl 07/17/20 07/17/20 07/17/20 Range/Units 10:01 10:01 10:01 WBC (4.8-10.8) K/uL RBC (4.2-5.4) M/uL Hgb (12.0-16.0) g/dL Hct (37-47) % MCV (80-100) fL MCH (25-34) pg MCHC (32-36) g/dL RDW Std Deviation (36.4-46.3) fL RDW Coeff of Hanna (11.5-14.5) % Plt Count (130-400) K/uL MPV (7.4-10.4) fL Immature Gran % (Auto) % Neut % (Auto) % Lymph % (Auto) % [place] % (Auto) % Eos % (Auto) % Baso % (Auto) % Neut # (Auto) (1.4-6.5) K/uL Lymph # (Auto) (1.2-3.4) K/uL [place] # (Auto) (0.11-0.59) K/uL Eos # (Auto) (0-0.5) K/uL Baso # (Auto) (0-0.2) K/uL Immature Gran # (Auto) (0.00-0.02) K/uL PT (9.0-12.0) Seconds INR (0.9-1.1) APTT (21.0-31.0) Seconds PTT Ratio VBG pH 7.19 L (7.36-7.41) VBG pCO2 36 L (38-50) mmHg VBG pO2 33 mmHg VBG HCO3 13 mmol/L VBG O2 Saturation < 60.0 % VBG Base Excess -14.0 mEq/L Barometric Pressure 729.2 mm/Hg Sodium (136-145) mmol/L Potassium (3.5-5.1) mmol/L Chloride (98-107) mmol/L Carbon Dioxide (21-32) mmol/L Anion Gap (3-11) BUN (7-18) mg/dl Creatinine (0.6-1.2) mg/dl Est Cr Clr Drug Dosing ml/min Est GFR ( Amer) Est GFR (Non-Af Amer) BUN/Creatinine Ratio (10-20) Glucose (70-99) mg/dl POC Glucose (70-99) mg/dl Osmolality (280-300) mOsm/kg Lactate (0.4-2.0) mmol/L Calcium (8.5-10.1) mg/dl Magnesium (1.8-2.4) mg/dl Total Bilirubin (0.2-1) mg/dl AST (15-37) U/L ALT (12-78) U/L Alkaline Phosphatase (45-117) U/L Ammonia 34.9 H (11-32) umol/L Total Protein (6.4-8.2) gm/dl Albumin (3.4-5.0) gm/dl Globulin (2.5-4.0) gm/dl Albumin/Globulin Ratio (0.9-2) Lipase (73-393) U/L Procalcitonin (0-0.5) ng/ml TSH (0.300-4.500) uIu/ml HCG, Qual (Negative) Salicylates Cancelled Acetaminophen Cancelled Ethyl Alcohol mg/dL (0-3) mg/dl 07/17/20 07/17/20 07/17/20 Range/Units 10:01 10:01 08:38 WBC (4.8-10.8) K/uL RBC (4.2-5.4) M/uL Hgb (12.0-16.0) g/dL Hct (37-47) % MCV (80-100) fL MCH (25-34) pg MCHC (32-36) g/dL RDW Std Deviation (36.4-46.3) fL RDW Coeff of Hanna (11.5-14.5) % Plt Count (130-400) K/uL MPV (7.4-10.4) fL Immature Gran % (Auto) % Neut % (Auto) % Lymph % (Auto) % [place] % (Auto) % Eos % (Auto) % Baso % (Auto) % Neut # (Auto) (1.4-6.5) K/uL Lymph # (Auto) (1.2-3.4) K/uL [place] # (Auto) (0.11-0.59) K/uL Eos # (Auto) (0-0.5) K/uL Baso # (Auto) (0-0.2) K/uL Immature Gran # (Auto) (0.00-0.02) K/uL PT (9.0-12.0) Seconds INR (0.9-1.1) APTT (21.0-31.0) Seconds PTT Ratio VBG pH (7.36-7.41) VBG pCO2 (38-50) mmHg VBG pO2 mmHg VBG HCO3 mmol/L VBG O2 Saturation % VBG Base Excess mEq/L Barometric Pressure mm/Hg Sodium (136-145) mmol/L Potassium (3.5-5.1) mmol/L Chloride (98-107) mmol/L Carbon Dioxide (21-32) mmol/L Anion Gap (3-11) BUN (7-18) mg/dl Creatinine (0.6-1.2) mg/dl Est Cr Clr Drug Dosing ml/min Est GFR ( Amer) Est GFR (Non-Af Amer) BUN/Creatinine Ratio (10-20) Glucose (70-99) mg/dl POC Glucose (70-99) mg/dl Osmolality 283 (280-300) mOsm/kg Lactate 3.3 H* (0.4-2.0) mmol/L Calcium (8.5-10.1) mg/dl Magnesium (1.8-2.4) mg/dl Total Bilirubin (0.2-1) mg/dl AST (15-37) U/L ALT (12-78) U/L Alkaline Phosphatase (45-117) U/L Ammonia (11-32) umol/L Total Protein (6.4-8.2) gm/dl Albumin (3.4-5.0) gm/dl Globulin (2.5-4.0) gm/dl Albumin/Globulin Ratio (0.9-2) Lipase (73-393) U/L Procalcitonin 0.73 H (0-0.5) ng/ml TSH (0.300-4.500) uIu/ml HCG, Qual (Negative) Salicylates Acetaminophen Ethyl Alcohol mg/dL (0-3) mg/dl 07/17/20 07/17/20 07/17/20 Range/Units 08:38 08:38 08:38 WBC (4.8-10.8) K/uL RBC (4.2-5.4) M/uL Hgb (12.0-16.0) g/dL Hct (37-47) % MCV (80-100) fL MCH (25-34) pg MCHC (32-36) g/dL RDW Std Deviation (36.4-46.3) fL RDW Coeff of Hanna (11.5-14.5) % Plt Count (130-400) K/uL MPV (7.4-10.4) fL Immature Gran % (Auto) % Neut % (Auto) % Lymph % (Auto) % [place] % (Auto) % Eos % (Auto) % Baso % (Auto) % Neut # (Auto) (1.4-6.5) K/uL Lymph # (Auto) (1.2-3.4) K/uL [place] # (Auto) (0.11-0.59) K/uL Eos # (Auto) (0-0.5) K/uL Baso # (Auto) (0-0.2) K/uL Immature Gran # (Auto) (0.00-0.02) K/uL PT 13.9 H (9.0-12.0) Seconds INR 1.3 H (0.9-1.1) APTT 27.1 (21.0-31.0) Seconds PTT Ratio 1.0 VBG pH (7.36-7.41) VBG pCO2 (38-50) mmHg VBG pO2 mmHg VBG HCO3 mmol/L VBG O2 Saturation % VBG Base Excess mEq/L Barometric Pressure mm/Hg Sodium (136-145) mmol/L Potassium (3.5-5.1) mmol/L Chloride (98-107) mmol/L Carbon Dioxide (21-32) mmol/L Anion Gap (3-11) BUN (7-18) mg/dl Creatinine (0.6-1.2) mg/dl Est Cr Clr Drug Dosing ml/min Est GFR ( Amer) Est GFR (Non-Af Amer) BUN/Creatinine Ratio (10-20) Glucose (70-99) mg/dl POC Glucose (70-99) mg/dl Osmolality (280-300) mOsm/kg Lactate (0.4-2.0) mmol/L Calcium (8.5-10.1) mg/dl Magnesium (1.8-2.4) mg/dl Total Bilirubin (0.2-1) mg/dl AST (15-37) U/L ALT (12-78) U/L Alkaline Phosphatase (45-117) U/L Ammonia (11-32) umol/L Total Protein (6.4-8.2) gm/dl Albumin (3.4-5.0) gm/dl Globulin (2.5-4.0) gm/dl Albumin/Globulin Ratio (0.9-2) Lipase (73-393) U/L Procalcitonin (0-0.5) ng/ml TSH (0.300-4.500) uIu/ml HCG, Qual Negative (Negative) Salicylates Cancelled Acetaminophen Cancelled Ethyl Alcohol mg/dL (0-3) mg/dl 07/17/20 07/17/20 07/17/20 Range/Units 08:38 08:38 08:38 WBC 16.61 H (4.8-10.8) K/uL RBC 4.29 (4.2-5.4) M/uL Hgb 15.5 (12.0-16.0) g/dL Hct 43.2 (37-47) % MCV 100.7 H (80-100) fL MCH 36.1 H (25-34) pg MCHC 35.9 (32-36) g/dL RDW Std Deviation 48.5 H (36.4-46.3) fL RDW Coeff of Hanna 13.3 (11.5-14.5) % Plt Count 212 (130-400) K/uL MPV 10.6 H (7.4-10.4) fL Immature Gran % (Auto) 0.5 % Neut % (Auto) 89.5 % Lymph % (Auto) 3.0 % [place] % (Auto) 7.0 % Eos % (Auto) 0.0 % Baso % (Auto) 0.0 % Neut # (Auto) 14.87 H (1.4-6.5) K/uL Lymph # (Auto) 0.50 L (1.2-3.4) K/uL [place] # (Auto) 1.16 H (0.11-0.59) K/uL Eos # (Auto) 0.00 (0-0.5) K/uL Baso # (Auto) 0.00 (0-0.2) K/uL Immature Gran # (Auto) 0.08 H (0.00-0.02) K/uL PT (9.0-12.0) Seconds INR (0.9-1.1) APTT (21.0-31.0) Seconds PTT Ratio VBG pH (7.36-7.41) VBG pCO2 (38-50) mmHg VBG pO2 mmHg VBG HCO3 mmol/L VBG O2 Saturation % VBG Base Excess mEq/L Barometric Pressure mm/Hg Sodium 124 L (136-145) mmol/L Potassium 2.9 L (3.5-5.1) mmol/L Chloride 82 L (98-107) mmol/L Carbon Dioxide 11 L (21-32) mmol/L Anion Gap 32.0 H (3-11) BUN 26 H (7-18) mg/dl Creatinine 4.10 H (0.6-1.2) mg/dl Est Cr Clr Drug Dosing 16.7 ml/min Est GFR ( Amer) 14.8 Est GFR (Non-Af Amer) 12.8 BUN/Creatinine Ratio 6.3 L (10-20) Glucose 38 L* (70-99) mg/dl POC Glucose (70-99) mg/dl Osmolality (280-300) mOsm/kg Lactate (0.4-2.0) mmol/L Calcium 7.2 L (8.5-10.1) mg/dl Magnesium 2.6 H (1.8-2.4) mg/dl Total Bilirubin 3.9 H (0.2-1) mg/dl AST 318 H (15-37) U/L ALT 84 H (12-78) U/L Alkaline Phosphatase 106 (45-117) U/L Ammonia (11-32) umol/L Total Protein 7.1 (6.4-8.2) gm/dl Albumin 3.5 (3.4-5.0) gm/dl Globulin 3.6 (2.5-4.0) gm/dl Albumin/Globulin Ratio 1.0 (0.9-2) Lipase 55422 H (73-393) U/L Procalcitonin (0-0.5) ng/ml TSH 0.754 (0.300-4.500) uIu/ml HCG, Qual (Negative) Salicylates Acetaminophen Ethyl Alcohol mg/dL < 3.0 (0-3) mg/dl Diagnostic Findings CT Head IMPRESSION: No acute intracranial findings CT cervical spine IMPRESSION: No acute cervical spine fracture or subluxation. CXR FINDINGS: The cardiac and mediastinal contours are normal. There is no evidence of focal pulmonary consolidation. There is no evidence of failure. No pleural effusions are visualized.No pneumothorax is visualized. IMPRESSION: No active disease in the chest. CT abdomen pelvis IMPRESSION: 1. Interval development of severe hepatic steatosis. The interval foreign exchange clerk one month would be consistent with acute alcoholic steatohepatitis. 2. Infiltration of the pancreatic fat. The findings are suggestive of pancreatitis. Acute traumatic pancreatitis could appear similar but is statistically less likely than alcoholic pancreatitis. 3. Trace ascites, likely secondary to liver disease and pancreatitis 4. Nonobstructing right renal calculus 5. Dilated fluid-filled distal esophagus 6. No convincing evidence of acute traumatic injury given the limitations of a noncontrast study CT Chest IMPRESSION: 1. No acute process within the chest. 2. Peripancreatic infiltration consistent with acute pancreatitis. Marked fatty infiltration of the liver. 3. Mildly dilated fluid-filled esophagus. Code Status & VTE Plan VTE Prophylaxis Plan VTE Prophylaxis will be ordered: Yes (1) Acute pancreatitis Acute pancreatitis complication: unspecified Pancreatitis type: alcohol induced Qualified Code(s): K85.20 - Alcohol induced acute pancreatitis without necrosis or infection (2) Hypertension Hypertension type: unspecified Qualified Code(s): I10 - Essential (primary) hypertension
[2020-07-17 12:28] LABS: BUN Creatinine Ratio 8.3 (10-20); Calcium 5.7 mg/dl (8.5-10.1); Creatinine Clr Calc Pharmacy 20.8 ml/min; Est GFR (African American) 19.4; Est GFR (Non-African American) 16.7; Potassium 3.2 mmol/L (3.5-5.1)
[2020-07-17] MEDS ORDERED: POTASSIUM CHLORIDE / WTR 10 MEQ/100 ML PLCT IV SCH (13:00)
[2020-07-17] MEDS: SODIUM CHLORIDE 0.9% 1000ML 1,000 ML IV SCH ×2 (13:34→19:28)
[2020-07-17] MEDS ORDERED: CARBOHYDRATES FOR HYPOGLYCEMIA PO PRN (13:45)
[2020-07-17] MEDS ORDERED: DEXTROSE 50% 50 ML SYRINGE IV PRN (13:45)
[2020-07-17] MEDS ORDERED: ACETAMINOPHEN 500 MG TAB PO PRN (13:45)
[2020-07-17] MEDS ORDERED: GLUCOSE 10 TABS/TUBE PO PRN (13:45)
[2020-07-17] MEDS ORDERED: GLUCAGON FOR INJ 1 MG VIAL SQ PRN (13:45)
[2020-07-17] MEDS ORDERED: POLYETHYLENE (MIRALAX) 17 GM PACK PO PRN (13:45)
[2020-07-17] MEDS ORDERED: GLUCOSE 40% GEL 15 GM TUBE PO PRN (13:45)
[2020-07-17] MEDS ORDERED: HYDROmorphone INJ 0.5 MG/0.5 ML SYR IV STA (13:53)
[2020-07-17] MEDS ORDERED: CALCIUM GLUCONATE 10% 1,000 MG in SODIUM CHLORIDE 0.9% 50 ML IV ONE ×2 (14:00→19:15)
[2020-07-17] MEDS ORDERED: LORAZEPAM 2MG IV ACTIVE PROTOCOL IV PRN (14:15)
[2020-07-17] MEDS ORDERED: LORAZEPAM 1MG IV ACTIVE PROTOCOL IV PRN (14:15)
[2020-07-17] MEDS ORDERED: ATIVAN IV ALCOHOL WITHDRAWL IV SCH (14:15)
[2020-07-17] MEDS ORDERED: LORAZEPAM 3MG IV ACTIVE PROTOCOL IV PRN (14:15)
[2020-07-17] MEDS ORDERED: LORAZEPAM 1MG TAB ACTIVE PROTOCOL PO PRN (14:15)
[2020-07-17] MEDS: ONDANSETRON INJ 2 MG/ML 2 ML VIAL IV PRN ×2 (14:22→19:50)
--- NOTE | 2020-07-17 15:45 | Gastrointestinal Consultation ---
Date of Consultation July 17, 2020 Assessment & Plan (1) Alcohol abuse: Discussed need for complete, permanent abstinence. Pt willing for counselling/rehab. Present on Admission?: Yes (2) Acute pancreatitis: Very likely alcoholic pancreatitis but will r/o bile duct obstruction with MRI/MRCP. Present on Admission?: Yes (3) Elevated liver enzymes: Likely alcoholic hepatitis. DF = 12.6, so no indication for steroids Recommend: 1. MRCP 2. Daily LFTs, lipase, CBC, CMP 3. Appreciate primary services correction/management of electrolytes. 4. Bowel rest - water po only today. Will re-evaluate tomorrow. 5. IV fluids at 200/hr. 6. Needs complete, permanent alcohol abstention. 7. If abstains then OP GI f/u and eventual OP EUS for further imaging of the pancreas, to r/o other causes of pancreatitis. Present on Admission?: Yes Supervising Physician Co-Signing Physician Notes Attending attestation I have seen, examined this patient, and agree with the findings and above by our mid-level provider HEIKE Almaraz, with the following additions: -Severe EtoH pancreatitis with hypocalcemia, hyponatremia, and ARF. -Will need aggressive IVF with careful following of Na per nephrology -LFT's slighty up and may have overlapping alcoholic hepatitis, but will r/o biliary obstruction with MRCP History of Present Illness Reason for Consultation: acute pancreatitis, alcohol hepatitis Requesting Physician: Delicia Blackwell PA-C/Dr. Higginbotham Attending Physician: Paulino Higginbotham MD History of Present Illness Ms.Jamie Palomo is a 39 yr old female with a hx of alcohol abuse, anxiety, hypertension, likely nonischemic cardiomyopathy, with mildly reduced LV systolic function with mild global hypokinesis, EF 45 to 50%. She was brought to the ED due to alcohol intoxication and a brief episode of unresponsiveness. GI is consulted for alcoholic pancreatitis and hepatitis. She is seen and examined while she is resting in bed on a youth nutritional monitor. She is tachycardic at 100- 110, normotensive and awake, alert, oriented. She reports having abstained from alcohol on discharge from her most recent admission 2 weeks ago, until 3 days ago when she relapsed, "drinking around the clock." She reports upper abdomen pain, nausea and vomiting starting about 2-3 days ago. Pain persists and is slightly better when she receives narcotic meds here. She is post cholecystectomy. She denies any symptoms of obstruction or jaundice. On arrival CT with acute uncomplicated pancreatitis, and steatohepatitis. Lipase >90017, LFTs elevated: T Bili 3.9, AST 318, ALT 84, Alk phos normal. Cr is elevated at 3, she has electrolyte derangement, evidence of metabolic acidosis and leukocytosis. Alcohol level on arrival <3. Lactate was elevated at 3. Allergies Allergy/AdvReac Type Severity Reaction Status Date / Time tramadol AdvReac Severe SEIZURES Verified 07/17/20 08:35 Home Medications Home Medications Medication Instructions Recorded Confirmed Type folic acid 1 mg PO QAM #30 tab 06/14/20 07/17/20 Rx metoprolol tartrate 50 mg PO BID #60 tab 06/14/20 07/17/20 Rx thiamine HCl (vitamin B1) [Vitamin 100 mg PO QAM #30 tab 06/14/20 07/17/20 Rx B-1] hydroxyzine HCl 50 mg PO Q6H PRN 07/17/20 07/17/20 History losartan-hydrochlorothiazide 1 tab PO QAM 07/17/20 07/17/20 History Patient History Medical History Alcohol abuse Anxiety History of narcotic addiction Hypertension Migraine Nonischemic cardiomyopathy Surgical History History of dental surgery History of laparoscopic cholecystectomy Family History Grandfather (Paternal) Diabetes Grandmother (Maternal) Diabetes Social History Smoking Status: Never smoker Second Hand Exposure: No; Hx Alcohol Use: Yes Alcohol type: hard liquor Alcohol type Comment: and pt split 1 pint of liquor/week Alcohol Intake Frequency: 4 or More x per/Week Alcohol Intake Frequency Comment: 2-3 alcoholic beverages approx q. 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 Beliefs That Will Affect Care: None marital status: Current Living Situation: Spouse How many Children do You have: 5 Other Information That Helps Us Care for You: No Feels Safe at Home: Yes Safety Concerns: Feels Safe At This Time Assistive Devices: None Review of Systems Review of Systems: ROS: Gen: +weakness; no fevers, chills or weight loss + sweats + falls/unsteady + poor appetite Eyes: No icterus, noeye redness, or pain, no recent vision changes Resp: No SOB, no cough Cardio: + palpitations, no chest pain GI: + abdominal pain, + no nausea/vomiting : Denies pain on urination Skin: No jaundice, itching or new rashes Physical Exam Constitutional: WD/WN, vitals as above well developed and + ill appearing thin extremities/muscle wasting Eyes: PERRL, conjunctivae normal, anicteric sclerae ENMT: external ear and nose normal, oropharynx normal Neck: trachea midline, no thyromegaly Respiratory: normal respiratory effort, lungs clear to auscultation Cardiovascular: RRR, no murmur, no edema Gastrointestinal (Abdomen): Inspection/Auscultation: + abdomen distended (mildly) and + hypoactive bowel sounds; no abdominal edema Percussion/Palpation: + abdomen tender (very tender over the upper abd, worse in the epigastric area) and + guarding; abdomen not rigid Musculoskeletal: no cyanosis or clubbing, extremities motor strength 5/5 Skin: no rashes, warm and dry no jaundice Neurologic: PERRL, EOMI, accommodation nl, no face palsy, no dysarthria Psychiatric: A+Ox3, euthymic affect Speech: normal rate/rhythm/volume of speech Affect: no depressed affect and no anxious affect Judgement: good judgement Lymphatic: no cervical or axillary lymphadenopathy Results & Data ([facility]) Vital Signs (Past 12 Hours) Vital Signs Temp Pulse Pulse Resp BP BP Pulse Ox 07/17/20 15:23 36.7 C 124 H 18 109/75 97 07/17/20 13:45 36.7 C 111 H 22 125/81 100 07/17/20 13:21 36.5 C 125 H 24 107/77 95 07/17/20 13:03 122 H 20 129/94 96 07/17/20 11:56 36.4 C L 120 H 22 130/86 98 07/17/20 11:07 116 H 18 148/107 H 96 09/29/20 10:18 116 H 16 127/87 100 07/17/20 09:35 105 H 16 128/87 07/17/20 08:54 103 H 16 110/78 97 07/17/20 08:15 36.6 C 107 H 20 114/75 96 (1) Acute pancreatitis Acute pancreatitis complication: unspecified Pancreatitis type: alcohol induced Qualified Code(s): K85.20 - Alcohol induced acute pancreatitis without necrosis or infection
[2020-07-17] MEDS: HEPARIN SOD 5,000 UNIT/0.5 ML VIAL SQ SCH ×2 (16:16→23:23)
[2020-07-17] MEDS: HYDROmorphone INJ 0.5 MG/0.5 ML SYR IV PRN ×3 (16:21→23:23)
[2020-07-17 17:28] LABS: Hematocrit (blood only) 42.2 % (37-47); Hemoglobin 15.1 g/dL (12.0-16.0); Mean Corpuscular Hemoglobin 35.8 pg (25-34); Mean Corpuscular Hgb Conc 35.8 g/dL (32-36); Mean Platelet Volume 10.6 fL (7.4-10.4); Platelet Count 132 K/uL (130-400); RDW Coefficient of Variation 13.4 % (11.5-14.5); RDW Standard Deviation 47.6 fL (36.4-46.3); Red Blood Count 4.22 M/uL (4.2-5.4)
[2020-07-17] MEDS ORDERED: METOPROLOL TARTRATE 25 MG TAB PO ONE (17:35)
[2020-07-17 18:16] LABS: BUN Creatinine Ratio 10.8 (10-20); Calcium 5.9 mg/dl (8.5-10.1); Creatinine Clr Calc Pharmacy 22.8 ml/min; Est GFR (African American) 21.3; Est GFR (Non-African American) 18.4; Potassium 3.3 mmol/L (3.5-5.1)
[2020-07-17] MEDS ORDERED: POTASSIUM CHLORIDE 20 MEQ TABCR PO STA (18:48)
[2020-07-17] MEDS ORDERED: CALCIUM CARBONATE 500 MG CHEWABLE TAB PO ONE (18:50)
[2020-07-17] MEDS ORDERED: SODIUM CHLORIDE 0.9% 1000ML 1,000 ML IV ONE (20:59)
[2020-07-17] MEDS: METOPROLOL TARTRATE 25 MG TAB PO SCH (21:47)
[2020-07-17 22:08] LABS: Appearance Urine Cloudy (Clear); Bacteria Urine Automated Negative (Negative); Blood Urine 3+ (Negative); Color Urine Dark Yellow; Epithelial Cell Urine Auto 0-5 /lpf (0-5); Glucose Urine UA Negative (Negative); Ketones Urine 2+ (Negative); Leukocyte Esterase Urine Trace (Negative); Nitrite Urine Negative (Negative); Protein Urine 3+ (Negative); RBC Urine Automated 0-4 /hpf (0-4); Specific Gravity Urine 1.019 (1.000-1.030); Urobilinogen Urine Negative (Negative); pH Urine 5.5 (4.5-7.5)
[2020-07-17 22:12] LABS: Bilirubin Urine Negative (Negative); Ictotest Urine Negative (Negative)
[2020-07-17 22:24] LABS: Amphetamines+Metham, Urine Neg (Neg); Barbiturates, Urine Neg (Neg); Benzodiazepine, Urine Neg (Neg); Cocaine, Urine Neg (Neg); MDMA (Ecstacy), Urine Neg (Neg); Methadone, Urine Neg (Neg); Opiate, Urine Pos (Neg); Phencyclidine, Urine Neg (Neg)
[2020-07-18] MEDS ORDERED: LACTATED RINGER'S 1,000 ML IV SCH (00:30)
[2020-07-18] MEDS: SODIUM CHLORIDE 0.9% 1000ML 1,000 ML IV SCH (00:47)
[2020-07-18] MEDS: D5W AND LACTATED RINGERS 1,000 ML IV SCH ×2 (00:50→05:48)
[2020-07-18 00:58] LABS: Hematocrit (blood only) 39.4 % (37-47); Hemoglobin 13.4 g/dL (12.0-16.0); Immature Granulocytes # (auto) 0.15 K/uL (0.00-0.02); Immature Granulocytes % (auto) 1.9 %; Lymphocytes # (auto) 0.37 K/uL (1.2-3.4); Lymphocytes % (auto) 4.7 %; Mean Corpuscular Hemoglobin 34.8 pg (25-34); Mean Corpuscular Volume 102.3 fL (80-100); Mean Platelet Volume 10.7 fL (7.4-10.4); Monocytes # (auto) 0.72 K/uL (0.11-0.59); Monocytes % (auto) 9.1 %; Neutrophils # (auto) 6.64 K/uL (1.4-6.5); Neutrophils % (auto) 84.3 %; Nucleated RBC # (auto) 0.02 K/uL (0-0); Nucleated RBC % (auto) 0.2 %; Platelet Count 137 K/uL (130-400); RDW Coefficient of Variation 13.6 % (11.5-14.5); RDW Standard Deviation 50.1 fL (36.4-46.3); Red Blood Count 3.85 M/uL (4.2-5.4); White Blood Count 7.88 K/uL (4.8-10.8)
[2020-07-18 01:08] LABS: Base Excess VBG -13.3 mEq/L; HCO3 VBG 14 mmol/L; PCO2 VBG 36 mmHg (38-50); PO2 VBG 28 mmHg
[2020-07-18 01:09] LABS: Oxygen Saturation VBG < 60.0 %
[2020-07-18 01:18] LABS: Albumin Level 2.7 gm/dl (3.4-5.0); BUN Creatinine Ratio 12.8 (10-20); Calcium 5.1 mg/dl (8.5-10.1); Creatinine Clr Calc Pharmacy 24.8 ml/min; Est GFR (African American) 23.6; Est GFR (Non-African American) 20.4; Magnesium 1.8 mg/dl (1.8-2.4); Potassium 4.2 mmol/L (3.5-5.1)
[2020-07-18] MEDS ORDERED: CALCIUM GLUCONATE 10% 1,000 MG in SODIUM CHLORIDE 0.9% 50 ML IV STA ×3 (01:22→20:19)
[2020-07-18 01:39] LABS: Albumin Globulin Ratio 0.9 (0.9-2); Bilirubin,Total 2.3 mg/dl (0.2-1); Globulin 3.2 gm/dl (2.5-4.0); Phosphorus 1.9 mg/dl (2.5-4.9); Total Protein 5.9 gm/dl (6.4-8.2)
[2020-07-18] MEDS ORDERED: OXYCODONE HCL IR 5 MG TAB (IMMEDIATE RELEASE) PO PRN (03:27)
[2020-07-18] MEDS ORDERED: POTASSIUM PHOS 3 MMOL/1 ML INFUSION IV STA (03:41)
[2020-07-18] MEDS ORDERED: MAGNESIUM SULFATE / D5W 1 GM/100 ML BAG IV ONE ×2 (03:42→22:00)
[2020-07-18] MEDS ORDERED: POTASSIUM PHOSPHATE 30 MMOL in SODIUM CHLORIDE 0.9% 500 ML IV ONE (03:45)
[2020-07-18] MEDS: HYDROmorphone INJ 0.5 MG/0.5 ML SYR IV PRN (03:55)
[2020-07-18] MEDS ORDERED: CALCIUM CARBONATE 500 MG CHEWABLE TAB PO PRN (04:04)
[2020-07-18] MEDS: HEPARIN SOD 5,000 UNIT/0.5 ML VIAL SQ SCH ×3 (05:48→22:58)
--- NOTE | 2020-07-18 05:57 | Electrocardiogram Report ---
Test Reason : Blood Pressure : / mmHG Vent. Rate : 101 BPM Atrial Rate : 101 BPM P-R Int : 116 ms QRS Dur : 084 ms QT Int : 410 ms P-R-T Axes : 057 039 044 degrees QTc Int : 531 ms Sinus tachycardia Prolonged QT Abnormal ECG When compared with ECG of 29-JUN-2020 05:08, Nonspecific T wave abnormality no longer evident in Inferior leads Nonspecific T wave abnormality no longer evident in Anterior leads Confirmed by Ugo Pham ([id number]) on 07/18/2020 5:56:38 AM Referred By: SELF Confirmed By:Ugo Pham
[2020-07-18] MEDS: LACTATED RINGER'S 1,000 ML IV SCH ×3 (06:45→17:59)
[2020-07-18 07:34] LABS: Albumin Level 2.6 gm/dl (3.4-5.0); Calcium 5.3 mg/dl (8.5-10.1); Creatinine Clr Calc Pharmacy 28.6 ml/min; Est GFR (African American) 27.9; Est GFR (Non-African American) 24.1; Phosphorus 1.9 mg/dl (2.5-4.9); Potassium 4.1 mmol/L (3.5-5.1)
--- NOTE | 2020-07-18 07:52 | Nephrology Consultation ---
Date of Consultation July 18, 2020 Assessment & Plan (1) Acute kidney injury: prerenal in the setting of acute pancreatitis > her baseline creatinine as of earlier this month is 0.7-0.8. Her presenting creatinine was 4.1. Has had aggressive hydration and improved to 2.4 today. severe chemical anomalies but acceptable for now as below -cont LR aggressive rate, as high as she can tolerated -avoid nephrotoxins -no indication for HD curerntly and not likley to need -after further resuscitation, check protein/creat ratio -track CK >> CK elevated but chemistries not currently c/w rhabdomyolysis full blown --t rebecca she di dhave recent fall; Present on Admission?: Yes (2) Acute pancreatitis: per primary service and GI; from EtOH. for MRCP this afternoon and evenutal EUS (3) Disorders of fluid, electrolyte, and acid-base balance: will recheck chemistries this PM - bmp, phos, CA; had 2 gm Ca gluconate this afternoon >> saponification common in pancreatitis and will make Ca hard to correct; would aim for Ca at least > 6.8 given tachycardia though this may be from multiple issues hyponatremia > stable, possible volume depletion hypocalcemia even corrected for albumin AGMA> likely from ketonemia, from rneal failure >> cont LR aggressively dosed Present on Admission?: Yes History of Present Illness Reason for Consultation: ROXANA Requesting Physician: Dr Higginbotham Attending Physician: Yuliana Ulloa MD History of Present Illness 39 y/o F whom I"m asked to see for ROXANA after she was admitted yesterday with acute pancreatitis and ROXANA. 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 Admitted to [facility] last month for HTN urgency and EtOH abuse. her baseline creatinine as of earlier this month is 0.7-0.8. Her presenting creatinine was 4.1, w/ presenting Na 124, presenting bicarb 11. CK this am was 5262; lipase on presentation 22K. 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 In ER she had 1L NS, IV K folate/thiamine. last night pt was up to toilet and fell to floor unresponsive > code purple called; she came around quickly; straight ca th'd for 200 mL urine; dilaudid dose lowered Allergies Allergy/AdvReac Type Severity Reaction Status Date / Time tramadol AdvReac Severe SEIZURES Verified 07/17/20 08:35 Home Medications Home Medications Medication Instructions Recorded Confirmed Type folic acid 1 mg PO QAM #30 tab 06/14/20 07/17/20 Rx metoprolol tartrate 50 mg PO BID #60 tab 06/14/20 07/17/20 Rx thiamine HCl (vitamin B1) [Vitamin 100 mg PO QAM #30 tab 06/14/20 07/17/20 Rx B-1] hydroxyzine HCl 50 mg PO Q6H PRN 07/17/20 07/17/20 History losartan-hydrochlorothiazide 1 tab PO QAM 07/17/20 07/17/20 History Patient History Medical History Alcohol abuse Anxiety History of narcotic addiction Hypertension Migraine Nonischemic cardiomyopathy Surgical History History of dental surgery History of laparoscopic cholecystectomy Family History Grandfather (Paternal) Diabetes Grandmother (Maternal) Diabetes Social History Smoking Status: Never smoker Second Hand Exposure: No; Hx Alcohol Use: Yes Alcohol type: hard liquor Alcohol type Comment: and pt split 1 pint of liquor/week Alcohol Intake Frequency: 4 or More x per/Week Alcohol Intake Frequency Comment: 2-3 alcoholic beverages approx q. other day Hx Substance Use: No Preferred Language: Chinese Communication Ability: Effective Business Agent Required: No Beliefs That Will Affect Care: None marital status: Current Living Situation: Spouse How many Children do You have: 5 Other Information That Helps Us Care for You: No Feels Safe at Home: Yes Safety Concerns: Feels Safe At This Time Assistive Devices: Glasses Review of Systems Review of Systems: All systems reviewed & are unremarkable except as noted in HPI & below Constitutional: + fatigue, + malaise and + weakness Eyes: no worsening vision Ear, Nose, Mouth, Throat: no dry mouth Respiratory: no cough and no dyspnea Cardiovascular: + palpitations; no edema Gastrointestinal: + abdominal pain, + nausea and + vomiting; no change in bowel habits Genitourinary: no particular voiding sx except decreased UOP Musculoskeletal: + joint pain and + myalgia banged BL knees Integumentary: + lesions (bruises BL patellae) Neurologic: as per Subjective / HPI and + generalized weakness Psychiatric: as per Subjective / HPI Endocrine: + fatigue Hematologic / Lymphatic: no easy bleeding Physical Exam Constitutional: well developed, well nourished and cooperative Eyes: EOM intact bilaterally ENMT: Ears: no external ear abnormality Nose: no external nose abnormality Mouth: + dry oral mucous membranes Neck: no nuchal rigidity Respiratory: normal respiratory effort and + tachypneic Auscultation: lungs clear to auscultation bilaterally and + diminished lung sounds Cardiovascular: Rate/Rhythm: regular rhythm and + tachycardic Extremities: no edema Gastrointestinal (Abdomen): Inspection/Auscultation: + abnormal bowel sounds (some hypoactivity; some higher pitched sounds) Percussion/Palpation: + abdomen tender, + guarding and abdomen soft; abdomen not rigid and no ascites Musculoskeletal: Extremities: strength 5/5 throughout Skin: no rashes, warm and dry + ecchymosis (BL knees) Neurologic: salazar, fluent speech, no obvious tremor Psychiatric: Orientation: alert and oriented x 3 Speech: normal rate/rhythm/volume of speech Affect: + anxious affect Genitourinary: no partida Results & Data ([facility]) Vital Signs (Past 12 Hours) Vital Signs Temp Pulse Pulse Resp BP BP Pulse Ox 07/18/20 07:31 37.2 C 104 H 16 98/65 L 99 07/18/20 03:22 37 C 100 H 16 115/75 96 07/18/20 00:21 92/62 L 07/17/20 23:58 36.8 C 93 H 18 90/63 L 97 07/17/20 20:47 93 H 101/69 07/17/20 20:40 92/64 L Laboratory Results 07/18/20 00:39 07/18/20 06:31 UA with ketones, blood, protein; has had these consistently on UAs this month, mj blood/protein (1) Acute pancreatitis Acute pancreatitis complication: unspecified Pancreatitis type: alcohol parvin ron Qualified Code(s): K85.20 - Alcohol induced acute pancreatitis without necrosis or infection
[2020-07-18] MEDS ORDERED: GABAPENTIN 600MG ALCOHOL WITHDRAWAL LOAD PO STA (08:02)
[2020-07-18] MEDS ORDERED: LORazepam 1 MG TAB PO PRN (08:02)
[2020-07-18] MEDS ORDERED: GABAPENTIN 600 MG TAB PO ONE (08:30)
[2020-07-18] MEDS: THIAMINE HCL 100 MG in SYRINGE 9 ML IV SCH (08:43)
[2020-07-18] MEDS: FOLIC ACID 1 MG in SYRINGE 9.8 ML IV SCH (08:43)
[2020-07-18] MEDS: METOPROLOL TARTRATE 25 MG TAB PO SCH ×2 (08:51→19:53)
--- NOTE | 2020-07-18 11:07 | Gastroenterology Progress Note ---
Date of Service July 18, 2020 Assessment & Plan (1) Alcohol abuse: (2) Acute pancreatitis: 1. Continue fluids at 200/hr but watch for volume overload. 2. MRCP this afternoon. 3. KUB this afternoon. 4. Hold on advancing diet, stay with just water today. 5. Complete, permanent alcohol abstention. 6. Eventual EUS in 6-8 wks. Our office will contact her to arrange. Present on Admission?: Yes (3) Elevated liver enzymes: Admission and Anticipated Discharge Date Admission Date: July 17, 2020 Supervising Physician Co-Signing Physician Notes Attending attestation I have seen, examined this patient, and agree with the findings and above by our mid-level provider HEIKE Almaraz, with the following additions: Abdominal exam in improved, concerned for mild ileus, however, sit in the bed and looks better MRI to r/o biliary obstruction WBC count improved If no ileus would start liquids and advance as tolerated Subjective 39 yr old female with a hx of alcohol abuse, anxiety, HTN, nonischemic cardiomyopathy, EF 45 to 50%. Admitted 07/17 for alcohol intoxication and a brief episode of unresponsiveness. GI on board for alcoholic pancreatitis and hepatitis. Doing better today. Still epigastric pain. Now diffuse abdominal distention, "gassiness," passing only minimal amts of flatus. IV fluids at 220/hr. Hb 15.5->13.4. LFTs improved T BIli 3.9->2.3 AST 318->269 Review of Systems Review of Systems: ROS: Gen: Denies weakness, fevers, weight loss Eyes: No eye redness, or pain, no recent vision changes Resp: No SOB, no cough Cardio: No palpitations/irregular beats, no chest pain GI: See HPI, otherwise (-) : Denies pain on urination Skin: No jaundice, itching or new rashes Physical Exam Constitutional: WD/WN, vitals as above Eyes: PERRL, conjunctivae normal, anicteric sclerae ENMT: external ear and nose normal, oropharynx normal Neck: trachea midline, no thyromegaly Respiratory: normal respiratory effort, lungs clear to auscultation Cardiovascular: RRR, no murmur, no edema Gastrointestinal (Abdomen): Inspection/Auscultation: + abdomen distended (moderately) and + hypoactive bowel sounds Percussion/Palpation: + abdomen tender (upper abd); no guarding Skin: no rashes, warm and dry no jaundice Neurologic: PERRL, EOMI, accommodation nl, no face palsy, no dysarthria Psychiatric: Orientation: oriented x 3 slightly dull, somnolent affect Lymphatic: no cervical or axillary lymphadenopathy Results & Data ([facility]) Vital Signs (Past 12 Hours) Vital Signs Temp Pulse Pulse Resp BP BP Pulse Ox 07/18/20 07:31 37.2 C 104 H 16 98/65 L 99 07/18/20 03:22 37 C 100 H 16 115/75 96 07/18/20 00:21 92/62 L 07/17/20 23:58 36.8 C 93 H 18 90/63 L 97 (1) Acute pancreatitis Acute pancreatitis complication: unspecified Pancreatitis type: alcohol induced Qualified Code(s): K85.20 - Alcohol induced acute pancreatitis without necrosis or infection
[2020-07-18] MEDS ORDERED: SODIUM PHOSPHATE 3 MMOL/1 ML INFUSION IV STA (13:23)
[2020-07-18] MEDS ORDERED: SODIUM PHOSPHATE 12 MMOL in SODIUM CHLORIDE 0.9% 250 ML IV ONE (13:30)
--- NOTE | 2020-07-18 13:50 | XRay Report ---
KUB CLINICAL HISTORY: Abdominal distention. COMPARISON STUDY: CT of the abdomen and pelvis July 17, 2020. FINDINGS: Incidental note is made of cholecystectomy clips. The bowel gas pattern is normal. Pelvic c alcifications reflect phleboliths. IMPRESSION: No evidence for a bowel obstruction. ACT 112: Negative or not required by law. Electronically signed by: Remi Arizmendi M.D. 07/18/2020 1:49 PM
--- NOTE | 2020-07-18 14:17 | Magnetic Resonance Report ---
MRCP CLINICAL HISTORY: elevated LFTs, r/o choledocholithiasis TECHNIQUE: Utilizing a 1.5 Mitra magnet and dedicated coil, multiplanar, multiecho imaging of the upp er abdomen was performed utilizing heavily T2 weighted pulsing sequences without IV contrast. COMPARISON STUDY: CT of the abdomen and pelvis July 17, 2020. Right upper quadrant ultrasound A pril 2010. FINDINGS: Small bilateral pleural effusions have developed. Upper abdominal ascites has increased sin ce CT of July 17, 2020. There is peripancreatic infiltration and fluid. There is no biliary duct al dilatation status post cholecystectomy. The 3-D MRCP the sequences complex by motion artifact. How ever, no common bile duct calculi are identified. Fatty infiltration of the liver is better depicted on prior CT. Unenhanced images of the spleen, adrenal glands and kidneys are normal. No hydronephrosi s. No abdominal lymphadenopathy is noted. No masses shown on unenhanced exam. Caliber of visualized s mall and large bowel are normal. No suspicious marrow replacement is noted. IMPRESSION: 1. Exam mildly compromised by motion artifact but no choledocholithiasis identified. No biliary ducta l dilatation status post cholecystectomy. 2. Increase in upper abdominal ascites and peripancreatic infiltration and fluid consistent with acut e pancreatitis. 3. Fatty infiltration of the liver, better depicted on prior unenhanced CT. 4. Interval development of small bilateral pleural effusions. ACT 112: Negative or not required by law. Electronically signed by: Remi Arizmendi M.D. 07/18/2020 2:15 PM
[2020-07-18] MEDS: GABAPENTIN 100 MG CAP PO SCH ×2 (15:03→19:54)
--- NOTE | 2020-07-18 16:06 | Electrocardiogram Report ---
Test Reason : Blood Pressure : / mmHG Vent. Rate : 093 BPM Atrial Rate : 093 BPM P-R Int : 122 ms QRS Dur : 080 ms QT Int : 436 ms P-R-T Axes : 055 046 052 degrees QTc Int : 542 ms Normal sinus rhythm Prolonged QT Abnormal ECG When compared with ECG of 17-JUL-2020 08:49, No significant change was found Confirmed by Ugo Pham ([id number]) on 07/18/2020 4:06:25 PM Referred By: REFERRED SELF Confirmed By:Ugo Pham
[2020-07-18] MEDS ORDERED: ALUMINUM/MAGNESIUM/SIMETH (MAALOX MAX) 30 ML UDC PO PRN (16:59)
[2020-07-18] MEDS ORDERED: CALCIUM GLUCONATE 10% 2,000 MG in SODIUM CHLORIDE 0.9% 50 ML IV STA (17:04)
[2020-07-18] MEDS: PANTOprazole 40 MG TAB PO SCH (17:59)
[2020-07-18 18:27] LABS: BUN Creatinine Ratio 18.9 (10-20); Calcium 5.4 mg/dl (8.5-10.1); Creatinine Clr Calc Pharmacy 36.5 ml/min; Est GFR (African American) 37.6; Est GFR (Non-African American) 32.4; Potassium 3.6 mmol/L (3.5-5.1)
[2020-07-18] MEDS: CALCIUM CARBONATE 500 MG CHEWABLE TAB PO SCH (20:01)
[2020-07-18 20:21] LABS: Calcium 5.7 mg/dl (8.5-10.1)
[2020-07-18] MEDS ORDERED: CALCIUM GLUCONATE 10% 3,000 MG in 0.9 % SODIUM CHLORIDE 100 ML IV ONE (21:26)
--- NOTE | 2020-07-18 21:42 | Hospitalist Progress Note ---
Date of Service July 18, 2020 Assessment & Plan (1) Episode of unresponsiveness: Alcohol abuse /withdrawal : report of heavy alcohol intake /abuse started on neurontin ETOH withdrawal protocol pt willing to have out pt ETOH rehab /counselling Patient had episode of unresponsiveness possible due to ETOH withdrawal ?-EEG to assess withdrawal Sz also had electrolyte derangement -Low Na, Low phos , low ca , acute renal failure -due to ETOH abuse no further episode since admission (2) Acute pancreatitis: Due to ETOH abuse Patient presents with abdominal pain in upper quadrants, lipase elevated at 22,000, CT abdomen pelvis significant for acute pancreatitis cont IV fluid appreciate input from GI (3) Elevated liver enzymes: Due to alcoholic hepatitis AST elevated at 318, ALT 84, T bili 3.9 AST significantly elevated compared to ALT, consistent with alcoholic liver disease GI following (4) Acute kidney injury: Patient presents with severe ROXANA, creatinine 4, BUN 26 No prior history of kidney disease Likely secondary to dehydration/ETOH abuse cont IVF , cr gradually improving nephrology consulted (5) High anion gap metabolic acidosis: Patient presents with metabolic acidosis, bicarb 11, pH 7.19 on VBG Lactate elevated at 3.3 Likely secondary to ETOH abuse , vomiting for several days, poor oral intake, lactic acid level normalized with IV fluid no evidence of infection /sepsis (6) Elevated lactic acid level: (7) Lactic acidosis: Lactic acid 3.3 Possibly secondary to dehydration, ETOH abuse (8) Acute hyponatremia: Sodium in the ED 124, chloride 82, likely secondary to dehydration /ETOH abuse Na level gradually corrected nephrology following (9) Hypoglycemia: (10) Hypokalemia: corrected Low phos: ordered for replacement Hypocalcemia : Ca 5.6 with low ionized ca ordered for Ca gluconate PO Ca supplement Nephrology consulted Rhabdomyolysis ; elevated CPK , due to fall ? cont IVF follow CPK level (11) Alcohol abuse: a (12) NICM (nonischemic cardiomyopathy): (13) Hypertension: History of hypertension, and nonischemic cardiomyopathy, with with mildly reduced LV systolic function with mild global hypokinesis, EF 45 to 50%, hold HCTZ /losartan for Acute renal failure repeat ECHO to assess alcoholic cardiomyopathy Admission and Anticipated Discharge Date Admission Date: July 17, 2020 Subjective no complain of abdominal pain tolerating clears denies of anxiety or tremor Review of Systems Review of Systems: All systems reviewed & are unremarkable except as noted in HPI & below Physical Exam Constitutional: WD/WN, vitals as above Eyes: PERRL, conjunctivae normal, anicteric sclerae ENMT: external ear and nose normal, oropharynx normal Neck: trachea midline, no thyromegaly Respiratory: normal respiratory effort, lungs clear to auscultation Cardiovascular: RRR, no murmur, no edema Gastrointestinal (Abdomen): Inspection/Auscultation: normal bowel sounds Percussion/Palpation: abdomen soft Musculoskeletal: no cyanosis or clubbing, extremities motor strength 5/5 Skin: no rashes, warm and dry Neurologic: PERRL, EOMI, accommodation nl, no face palsy, no dysarthria Psychiatric: A+Ox3, euthymic affect Results & Data Results & Data ([facility]) Vital Signs (Past 12 Hours) Vital Signs Temp Pulse Pulse Pulse Resp BP Pulse Ox 07/18/20 19:36 37.6 C H 115 H 18 138/83 98 07/18/20 15:47 37.1 C 114 H 21 131/79 100 07/18/20 15:40 118 H 07/18/20 11:34 37.0 C 106 H 16 105/63 99 (1) Acute pancreatitis Acute pancreatitis complication: unspecified Pancreatitis type: alcohol induced Qualified Code(s): K85.20 - Alcohol induced acute pancreatitis without necrosis or infection (2) Hypertension Hypertension type: unspecified Qualified Code(s): I10 - Essential (primary) hypertension
[2020-07-18] MEDS ORDERED: CALCIUM GLUCONATE 10% 2,000 MG in 0.9 % SODIUM CHLORIDE 100 ML IV ONE (22:00)
--- NOTE | 2020-07-18 22:04 | Communication Note ---
Date of Service: July 18, 2020 Persistent hypocalcemia : Ca 5,7 /ionized Ca 0.73 corrected Ca approx 6 pt received 2 gm of IV ca earlier will get additional 3 gm IV ca gluconate add IV Mg cont PO Tums 1000 mg BID repeat lab including mg level at 12 am ordered for vit D, PTH level in am add PO vit D nephrology following Yuliana Ulloa MD
[2020-07-19 00:14] LABS: Magnesium 1.8 mg/dl (1.8-2.4)
[2020-07-19 01:35] LABS: BUN Creatinine Ratio 19.5 (10-20); Calcium 6.2 mg/dl (8.5-10.1); Creatinine Clr Calc Pharmacy 41.1 ml/min; Est GFR (African American) 43.3; Est GFR (Non-African American) 37.3; Potassium 3.6 mmol/L (3.5-5.1)
[2020-07-19] MEDS: LACTATED RINGER'S 1,000 ML IV SCH (04:13)
--- NOTE | 2020-07-19 05:46 | Electrocardiogram Report ---
Test Reason : Blood Pressure : / mmHG Vent. Rate : 102 BPM Atrial Rate : 102 BPM P-R Int : 116 ms QRS Dur : 072 ms QT Int : 406 ms P-R-T Axes : 054 039 056 degrees QTc Int : 529 ms Sinus tachycardia Cannot rule out Anterior infarct , age undetermined Prolonged QT Abnormal ECG When compared with ECG of 17-JUL-2020 21:34, No significant change was found Confirmed by Ugo Pham ([id number]) on 07/19/2020 5:45:57 AM Referred By: REFERRED SELF Confirmed By:Ugo Pham
[2020-07-19] MEDS: HEPARIN SOD 5,000 UNIT/0.5 ML VIAL SQ SCH (05:53)
[2020-07-19] MEDS: THIAMINE HCL 100 MG in SYRINGE 9 ML IV SCH (07:43)
[2020-07-19] MEDS: METOPROLOL TARTRATE 25 MG TAB PO SCH (07:44)
[2020-07-19] MEDS: CALCIUM CARBONATE 500 MG CHEWABLE TAB PO SCH (07:45)
[2020-07-19] MEDS: PANTOprazole 40 MG TAB PO SCH (07:45)
[2020-07-19 07:55] VITALS: TEMP 97.9
[2020-07-19 08:39] LABS: Albumin Level 2.6 gm/dl (3.4-5.0); BUN Creatinine Ratio 20.1 (10-20); Calcium 6.5 mg/dl (8.5-10.1); Creatinine Clr Calc Pharmacy 47.7 ml/min; Est GFR (African American) 51.6; Est GFR (Non-African American) 44.6; Potassium 3.4 mmol/L (3.5-5.1)
[2020-07-19] MEDS: FOLIC ACID 1 MG in SYRINGE 9.8 ML IV SCH (08:47)
[2020-07-19 08:58] LABS: Albumin Globulin Ratio 0.8 (0.9-2); Bilirubin Direct 0.9 mg/dl (0-0.2); Bilirubin,Total 1.5 mg/dl (0.2-1); Globulin 3.4 gm/dl (2.5-4.0); Phosphorus 1.3 mg/dl (2.5-4.9)
[2020-07-19] MEDS ORDERED: GABAPENTIN 600 MG TAB PO SCH (09:00)
[2020-07-19] MEDS ORDERED: CALCIUM 600MG + VIT D 400 IU TAB PO SCH (09:00)
[2020-07-19] MEDS ORDERED: METOPROLOL TARTRATE 50 MG TAB PO SCH ×2 (09:45→21:00)
[2020-07-19] MEDS ORDERED: FOLIC ACID 1 MG TAB PO SCH (09:45)
[2020-07-19] MEDS ORDERED: THIAMINE HCL 100 MG TAB PO SCH (09:45)
--- NOTE | 2020-07-19 09:51 | Nephrology Progress Note ---
Date of Service July 19, 2020 Assessment & Plan (1) Acute kidney injury: Stage 3 acute kidney injury, prerenal in the setting of acute pancreatitis > her baseline creatinine as of earlier this month is 0.7-0.8. Her presenting creatinine was 4.1. Has had aggressive hydration and improved to 1.5 today. severe chemical anomalies but acceptable for now as below -changed to D5W as below at aggressive rate, as high as she can tolerated -avoid nephrotoxins -no indication for HD curerntly and not likley to need -after further resuscitation, check protein/creat ratio -track CK >> CK elevated but chemistries not currently c/w rhabdomyolysis full blown --t rebecca she di dhave recent fall; CK downtrending now (2) Acute pancreatitis: per primary service and GI; from EtOH. s/p MRCP and evenutal EUS; lipase trending down (3) Disorders of fluid, electrolyte, and acid-base balance: >> saponification common in pancreatitis and will make Ca hard to correct; would aim for Ca at least > 6.8 (iCa minimum 0.95) given tachycardia though this may be from multiple issues hyponatremia > improving, possible volume depletion hypocalcemia even corrected for albumin hypophosphatemia - worsening >> started phos supplement po; avoid IV if possible AGMA> likely from ketonemia, from renal failure >> changed LR to bicarb gtt w/ 40 K per L at 200 <<with care since this has potential to lower Ca furtehr >>check iCa q4-6hr recommended and timed for when she is NOT receiving calcium and replete as above Ca gluconate; gave 2 gm calcium gluconate this am -cont TUMS po; PTH appropriately elevated NOW with plan to leave AMA, d/c recommendations (d/w Dr Ulloa): -no nsaids or EtOH -TUMS (extra strength preferable to regular) 2 tabs tid -KCl 40 mEq bid -D3 4000 units daily -no phos or mag suppls needed as she will presumably resume regular diet -recheck bmp w/in one week at PCP follow up -STRONGLY recommend f/u in CKD clinic > she is at high risk for relapse and/or group home renal complications >> w/in 1 week w/ any available MD or PA at [facility] or [facility] (4) Elevated liver enzymes: (5) Hypokalemia: (6) High anion gap metabolic acidosis: Admission and Anticipated Discharge Date Admission Date: July 17, 2020 Subjective pt seen and evaluated 929; denies sob, voiding concerns, further LOC; edema, n/v. late this AM pt opted to leave AMA despite team working with her to convin ce other way Review of Systems Review of Systems: All systems reviewed & are unremarkable except as noted in HPI & below Physical Exam Constitutional: well developed, well nourished and cooperative Eyes: EOM intact bilaterally ENMT: Ears: no external ear abnormality Nose: no external nose abnormality Mouth: + dry oral mucous membranes Neck: no nuchal rigidity Respiratory: normal respiratory effort and + tachypneic Auscultation: lungs clear to auscultation bilaterally and + diminished lung sounds Cardiovascular: Rate/Rhythm: regular rhythm and + tachycardic Extremities: no edema Gastrointestinal (Abdomen): Inspection/Auscultation: + abnormal bowel sounds (some hypoactivity; some higher pitched sounds) Percussion/Palpation: + abdomen tender, + guarding and abdomen soft; abdomen not rigid and no ascites Musculoskeletal: Extremities: strength 5/5 throughout Skin: no rashes, warm and dry + ecchymosis (BL knees) Psychiatric: Orientation: alert and oriented x 3 Speech: normal rate/rhythm/volume of speech Affect: + anxious affect Results & Data ([facility]) Vital Signs (Past 12 Hours) Vital Signs Temp Pulse Pulse Pulse Resp BP Pulse Ox 07/19/20 07:54 36.6 C 118 H 20 124/90 99 07/19/20 07:45 102 H 07/19/20 04:17 37.4 C 106 H 16 122/83 96 07/18/20 23:23 37.1 C 101 H 16 133/82 99 Laboratory Results 07/18/20 00:39 07/19/20 07:44 (1) Acute pancreatitis Acute pancreatitis complication: unspecified Pancreatitis type: alcohol induced Qualified Code(s): K85.20 - Alcohol induced acute pancreatitis without necrosis or infection
[2020-07-19] MEDS ORDERED: CALCIUM GLUCONATE 10% 2,000 MG in SODIUM CHLORIDE 0.9% 50 ML IV ONE (10:00)
[2020-07-19] MEDS ORDERED: METOPROLOL TARTRATE 25 MG TAB PO ONE (10:15)
--- NOTE | 2020-07-19 10:26 | Electroencephalogram ---
EEG Procedure Note Date of Service July 19, 2020 Start / End Times Start Time: 527 End Time: 547 Referring Physician Yuliana Ulloa MD History Alcoholism with period of unresponsiveness, multiple electrolyte abnormalities, question seizure disorder Home Medication List Home Medications Medication Instructions Recorded Confirmed Type folic acid 1 mg PO QAM #30 tab 06/14/20 07/17/20 Rx metoprolol tartrate 50 mg PO BID #60 tab 06/14/20 07/17/20 Rx thiamine HCl (vitamin B1) [Vitamin 100 mg PO QAM #30 tab 06/14/20 07/17/20 Rx B-1] hydroxyzine HCl 50 mg PO Q6H PRN 07/17/20 07/17/20 History losartan-hydrochlorothiazide 1 tab PO QAM 07/17/20 07/17/20 History Inpatient Medication List Calcium Carbonate (Calcium Carbonate 500 Mg Chewable Tab) 1,000 mg PO BID DONOVAN Stop: 08/17/20 20:59 Last Admin: 07/19/20 07:45 Dose: 1,000 mg Documented by: [id number] Admin: 07/18/20 20:01 Dose: 1,000 mg Documented by: [id number] Folic Acid (Folic Acid 1 Mg Tab) 1 mg PO QAM DONOVAN Stop: 08/18/20 09:44 Last Admin: 07/19/20 10:20 Dose: Not Given Documented by: [id number] Heparin Sodium (Porcine) (Heparin Sod 5,000 Unit/0.5 Ml Vial) 5,000 units SQ Q8 DONOVAN Stop: 08/16/20 13:59 Last Admin: 07/19/20 05:53 Dose: 5,000 units Documented by: [id number] Cosigned by: [id number] Admin: 07/18/20 22:58 Dose: 5,000 units Documented by: [id number] Cosigned by: [id number] Admin: 07/18/20 14:24 Dose: 5,000 units Documented by: [id number] Cosigned by: [id number] Admin: 07/18/20 05:48 Dose: 5,000 units Documented by: [id number] Cosigned by: [id number] Admin: 07/17/20 23:23 Dose: 5,000 units Documented by: [id number] Cosigned by: [id number] Admin: 07/17/20 16:16 Dose: 5,000 units Documented by: [id number] Cosigned by: [id number] Hydromorphone HCl (Hydromorphone Inj 0.5 Mg/0.5 Ml Syr) 0.25 mg IV Q2H PRN PRN Reason: Pain Stop: 07/31/20 13:56 Last Admin: 07/18/20 03:55 Dose: 0.25 mg Documented by: [id number] Admin: 07/17/20 23:23 Dose: 0.25 mg Documented by: [id number] Multivitamins/Minerals (Calcium 600mg + Vit D 400 Iu Tab) 1 tab PO BID [facility] Stop: 08/18/20 08:59 Last Admin: 07/19/20 08:47 Dose: 1 tab Documented by: [id number] Ondansetron HCl (Ondansetron Inj 2 Mg/Ml 2 Ml Vial) 4 mg IV Q4H PRN PRN Reason: Nausea Stop: 08/16/20 13:50 Last Admin: 07/17/20 19:50 Dose: 4 mg Documented by: [id number] Admin: 07/17/20 14:22 Dose: 4 mg Documented by: [id number] Pantoprazole Sodium (Pantoprazole 40 Mg Tab) 40 mg PO [facility] Stop: 08/17/20 16:59 Last Admin: 07/19/20 07:45 Dose: 40 mg Documented by: [id number] Admin: 07/18/20 17:59 Dose: 40 mg Documented by: [id number] Thiamine HCl (Thiamine Hcl 100 Mg Tab) 100 mg PO QAM [facility] Stop: 08/18/20 09:44 Last Admin: 07/19/20 10:20 Dose: Not Given Documented by: [id number] Discontinued Medications Calcium Carbonate (Calcium Carbonate 500 Mg Chewable Tab) 500 mg PO ONE ONE Stop: 07/17/20 18:51 Last Admin: 07/17/20 19:39 Dose: 500 mg Documented by: [id number] Calcium Carbonate (Calcium Carbonate 500 Mg Chewable Tab) 500 mg PO Q6H PRN PRN Reason: Heartburn Stop: 08/17/20 04:03 Last Admin: 07/18/20 04:17 Dose: 500 mg Documented by: [id number] Dextrose (Dextrose 50% 50 Ml Syringe) 50 ml IV NOW ONE Stop: 07/17/20 09:23 Last Admin: 07/17/20 09:33 Dose: 50 ml Documented by: [id number] Fentanyl Citrate (Fentanyl Citrate 100 Mcg/2 Ml Vial) 25 mcg IV NOW STA Stop: 07/17/20 08:19 Last Admin: 07/17/20 08:32 Dose: 25 mcg Documented by: [id number] Fentanyl Citrate (Fentanyl Citrate 100 Mcg/2 Ml Vial) 50 mcg IV NOW STA Stop: 07/17/20 10:23 Last Admin: 07/17/20 11:06 Dose: 50 mcg Documented by: [id number] Gabapentin (Gabapentin 600 Mg Tab) 600 mg PO NOW ONE Stop: 07/18/20 08:31 Last Admin: 07/18/20 08:43 Dose: 600 mg Documented by: [id number] Gabapentin (Gabapentin 100 Mg Cap) 100 mg PO Q6H [facility] Stop: 07/18/20 20:31 Last Admin: 07/18/20 19:54 Dose: 100 mg Documented by: [id number] Admin: 07/18/20 15:03 Dose: 100 mg Documented by: [id number] Gabapentin (Gabapentin 600 Mg Tab) 600 mg PO Q24H [facility] Stop: 07/19/20 09:01 Last Admin: 07/19/20 07:44 Dose: 600 mg Documented by: [id number] Hydromorphone HCl (Hydromorphone Inj 0.5 Mg/0.5 Ml Syr) 0.5 mg IV NOW STA Stop: 07/17/20 13:54 Last Admin: 07/17/20 14:21 Dose: 0.5 mg Documented by: [id number] Hydromorphone HCl (Hydromorphone Inj 0.5 Mg/0.5 Ml Syr) 0.5 mg IV Q2H PRN PRN Reason: Pain Stop: 07/31/20 13:56 Last Admin: 07/17/20 19:50 Dose: 0.5 mg Documented by: [id number] Admin: 07/17/20 16:21 Dose: 0.5 mg Documented by: [id number] Sodium Chloride (Nss 1000ml) 1,000 mls @ 999 mls/hr IV .Q1H1M DONOVAN Stop: 07/17/20 09:30 Last Infusion: 07/17/20 10:01 Dose: 0 mls/hr Documented by: [id number] Admin: 07/17/20 08:32 Dose: 999 mls/hr Documented by: [id number] Folic Acid 1 mg/ Syringe 10 mls @ 5 mls/min IV NOW STA Stop: 07/17/20 08:23 Last Admin: 07/17/20 08:52 Dose: 5 mls/min Documented by: [id number] Thiamine HCl 200 mg/ Sodium (Chloride) 52 mls @ 208 mls/hr IV NOW STA Stop: 07/17/20 08:36 Last Infusion: 07/17/20 09:10 Dose: 0 mls/hr Documented by: [id number] Admin: 07/17/20 08:53 Dose: 208 mls/hr Documented by: [id number] Potassium Chloride (K Derek / Wtr) 10 meq in 100 mls @ 100 mls/hr IV Q1H DONOVAN Stop: 07/17/20 11:29 Last Infusion: 07/17/20 12:42 Dose: 0 mls/hr Documented by: [id number] Admin: 07/17/20 11:50 Dose: 100 mls/hr Documented by: [id number] Infusion: 07/17/20 11:26 Dose: 0 mls/hr Documented by: [id number] Admin: 07/17/20 10:16 Dose: 100 mls/hr Documented by: [id number] Cefepime HCl (Maxipime) 2,000 mg in 20 mls @ 5 mls/min IV NOW STA; Protocol Stop: 07/17/20 10:51 Last Admin: 07/17/20 11:05 Dose: 5 mls/min Documented by: [id number] Calcium Gluconate 1,000 mg/ (Sodium Chloride) 60 mls @ 240 mls/hr IV NOW ONE Stop: 07/17/20 14:14 Last Infusion: 07/17/20 14:27 Dose: 0 mls/hr Documented by: [id number] Admin: 07/17/20 13:57 Dose: 240 mls/hr Documented by: [id number] Sodium Chloride (Nss 1000ml) 1,000 mls @ 200 mls/hr IV .Q5H DONOVAN Stop: 08/16/20 12:59 Last Admin: 07/18/20 00:47 Dose: Not Given Documented by: [id number] Infusion: 07/18/20 00:46 Dose: 0 mls/hr Documented by: [id number] Admin: 07/17/20 19:28 Dose: 200 mls/hr Documented by: [id number] Infusion: 07/17/20 18:34 Dose: 200 mls/hr Documented by: [id number] Admin: 07/17/20 13:34 Dose: 200 mls/hr Documented by: [id number] Potassium Chloride (K Derek / Wtr) 10 meq in 100 mls @ 100 mls/hr IV Q1H DONOVAN Stop: 07/17/20 16:59 Last Infusion: 07/17/20 18:42 Dose: 0 mls/hr Documented by: [id number] Admin: 07/17/20 16:48 Dose: 100 mls/hr Documented by: [id number] Infusion: 07/17/20 16:35 Dose: 100 mls/hr Documented by: [id number] Admin: 07/17/20 15:35 Dose: 100 mls/hr Documented by: [id number] Infusion: 07/17/20 15:24 Dose: 100 mls/hr Documented by: [id number] Admin: 07/17/20 14:24 Dose: 100 mls/hr Documented by: [id number] Thiamine HCl 100 mg/ Syringe 10 mls @ 2 mls/min IV QAM DONOVAN Stop: 08/17/20 08:59 Last Admin: 07/19/20 07:43 Dose: 2 mls/min Documented by: [id number] Admin: 07/18/20 08:43 Dose: 2 mls/min Documented by: [id number] Folic Acid 1 mg/ Syringe 10 mls @ 5 mls/min IV QAM DON[facility]AN Stop: 08/17/20 08:59 Last Admin: 07/19/20 08:47 Dose: 5 mls/min Documented by: [id number] Admin: 07/18/20 08:43 Dose: 5 mls/min Documented by: [id number] Potassium Chloride (K Derek / Wtr) 10 meq in 100 mls @ 100 mls/hr IV Q1H DONOVAN Stop: 07/17/20 21:59 Last Infusion: 07/17/20 23:33 Dose: 0 mls/hr Documented by: [id number] Admin: 07/17/20 21:46 Dose: 100 mls/hr Documented by: [id number] Infusion: 07/17/20 20:39 Dose: 100 mls/hr Documented by: [id number] Admin: 07/17/20 19:39 Dose: 100 mls/hr Documented by: [id number] Calcium Gluconate 1,000 mg/ (Sodium Chloride) 60 mls @ 240 mls/hr IV NOW ONE Stop: 07/17/20 19:29 Last Infusion: 07/17/20 20:27 Dose: 0 mls/hr Documented by: [id number] Admin: 07/17/20 19:39 Dose: 240 mls/hr Documented by: [id number] Sodium Chloride (Nss 1000ml) 1,000 mls @ 999 mls/hr IV .Q1H1M ONE Stop: 07/17/20 21:59 Last Infusion: 07/17/20 22:35 Dose: 0 mls/hr Documented by: [id number] Admin: 07/17/20 21:29 Dose: 999 mls/hr Documented by: [id number] Dextrose/Lactated Ringer's (D5w And Lactated Ringers) 1,000 mls @ 200 mls/hr IV .Q5H DONOVAN Stop: 08/17/20 00:29 Last Infusion: 07/18/20 10:21 Dose: 0 mls/hr Documented by: [id number] Infusion: 07/18/20 08:43 Dose: 0 mls/hr Documented by: [id number] Admin: 07/18/20 05:48 Dose: 200 mls/hr Documented by: [id number] Infusion: 07/18/20 05:48 Dose: 200 mls/hr Documented by: [id number] Admin: 07/18/20 00:50 Dose: 200 mls/hr Documented by: [id number] Calcium Gluconate 1,000 mg/ (Sodium Chloride) 60 mls @ 240 mls/hr IV NOW STA Stop: 07/18/20 01:36 Last Infusion: 07/18/20 02:09 Dose: 0 mls/hr Documented by: [id number] Admin: 07/18/20 01:54 Dose: 240 mls/hr Documented by: [id number] Magnesium Sulfate/Dextrose (Magnesium Sulfate / D5w) 1 gm in 100 mls @ 50 mls/hr IV ONE ONE Stop: 07/18/20 05:41 Last Infusion: 07/18/20 06:02 Dose: 0 mls/hr Documented by: [id number] Admin: 07/18/20 04:17 Dose: 50 mls/hr Documented by: [id number] Potassium Phosphate 30 mmol/ (Sodium Chloride) 510 mls @ 88 mls/hr IV ONE ONE Stop: 07/18/20 09:32 Last Infusion: 07/18/20 11:13 Dose: 0 mls/hr Documented by: [id number] Admin: 07/18/20 04:17 Dose: 88 mls/hr Documented by: [id number] Lactated Ringer's (Lr) 1,000 mls @ 200 mls/hr IV .Q5H DONOVAN Stop: 08/17/20 06:44 Last Infusion: 07/19/20 10:11 Dose: 0 mls/hr Documented by: [id number] Admin: 07/19/20 04:13 Dose: 200 mls/hr Documented by: [id number] Infusion: 07/19/20 04:13 Dose: 0 mls/hr Documented by: [id number] Admin: 07/18/20 17:59 Dose: 150 mls/hr Documented by: [id number] Infusion: 07/18/20 17:40 Dose: 0 mls/hr Documented by: [id number] Infusion: 07/18/20 16:50 Dose: 150 mls/hr Documented by: [id number] Admin: 07/18/20 13:31 Dose: 200 mls/hr Documented by: [id number] Infusion: 07/18/20 11:45 Dose: 200 mls/hr Documented by: [id number] Admin: 07/18/20 06:45 Dose: 200 mls/hr Documented by: [id number] Sodium Phosphate 12 mmol/ (Sodium Chloride) 254 mls @ 88 mls/hr IV ONE ONE Stop: 07/18/20 16:23 Last Infusion: 07/18/20 18:36 Dose: 0 mls/hr Documented by: [id number] Admin: 07/18/20 14:23 Dose: 88 mls/hr Documented by: [id number] Calcium Gluconate 2,000 mg/ (Sodium Chloride) 70 mls @ 240 mls/hr IV NOW STA Stop: 07/18/20 17:21 Last Infusion: 07/18/20 18:18 Dose: 0 mls/hr Documented by: [id number] Admin: 07/18/20 17:40 Dose: 240 mls/hr Documented by: [id number] Calcium Gluconate 1,000 mg/ (Sodium Chloride) 60 mls @ 240 mls/hr IV NOW STA Stop: 07/18/20 20:33 Last Infusion: 07/18/20 21:31 Dose: 0 mls/hr Documented by: [id number] Admin: 07/18/20 20:58 Dose: 240 mls/hr Documented by: [id number] Calcium Gluconate 3,000 mg/ (Sodium Chloride) 130 mls @ 65 mls/hr IV NOW ONE Stop: 07/18/20 23:25 Last Admin: 07/18/20 21:46 Dose: Not Given Documented by: [id number] Calcium Gluconate 2,000 mg/ (Sodium Chloride) 120 mls @ 480 mls/hr IV NOW ONE Stop: 07/18/20 22:14 Last Infusion: 07/18/20 23:47 Dose: 0 mls/hr Documented by: [id number] Admin: 07/18/20 22:55 Dose: 480 mls/hr Documented by: [id number] Magnesium Sulfate/Dextrose (Magnesium Sulfate / D5w) 1 gm in 100 mls @ 50 mls/hr IV ONE ONE Stop: 07/18/20 23:59 Last Infusion: 07/19/20 02:44 Dose: 0 mls/hr Documented by: [id number] Admin: 07/18/20 23:40 Dose: 50 mls/hr Documented by: [id number] Ioversol (Ioversol 100ml) 93 ml IV ONCE ONE Stop: 07/17/20 08:27 Last Admin: 07/17/20 08:27 Dose: 93 ml Documented by: [id number] Metoprolol Tartrate (Metoprolol Tartrate 25 Mg Tab) 25 mg PO BID DONOVAN Stop: 08/16/20 22:59 Last Admin: 07/19/20 07:44 Dose: 25 mg Documented by: [id number] Admin: 07/18/20 19:53 Dose: 25 mg Documented by: [id number] Admin: 07/18/20 08:51 Dose: Not Given Documented by: [id number] Admin: 07/17/20 21:47 Dose: Not Given Documented by: [id number] Metoprolol Tartrate (Metoprolol Tartrate 25 Mg Tab) 25 mg PO ONE ONE Stop: 07/17/20 17:36 Last Admin: 07/17/20 18:44 Dose: 25 mg Documented by: [id number] Ondansetron HCl (Ondansetron Inj 2 Mg/Ml 2 Ml Vial) 4 mg IV NOW STA Stop: 07/17/20 08:19 Last Admin: 07/17/20 08:32 Dose: 4 mg Documented by: [id number] Potassium Chloride (Potassium Chloride 20 Meq Tabcr) 40 meq PO NOW STA Stop: 07/17/20 18:49 Last Admin: 07/17/20 19:39 Dose: 40 meq Documented by: [id number] Sodium Phosphate (Sodium Phosphate 3 Mmol/1 Ml Infusion) 12 mmol IV NOW STA Stop: 07/18/20 13:24 Last Admin: 07/18/20 14:59 Dose: Not Given Documented by: [id number] Description This is a 21 electrode EEG with a single channel dedicated to limited EKG. The electrodes were placed in accordance with the International 10-20 systemThis EEG was obtained as a bedside recording is of excellent technical quality with periodic muscle movement artifacts that do not interrupt her baseline significantly and do not interfere with interpretation. Under these conditions there is evidence for a normal background rhythm in the alpha range of up to 10 Hz and maximum frequency and 30 V of maximal amplitude which is maximum posterior head regions bilaterally symmetrical. Modest amplitude mid upper frequency theta activity seen centrally and symmetrically. Beta activity seen bifrontally and extends into the central regions to some degree Isolation looks to modify response without a photo myogenic photoparoxysmal component Drowsiness and light sleep were not obtained No time during the waking tracing is evidence of potentially epileptogenic activity Interpretation This is a normal EEG during wakefulness Clinical Correlation Normal EEG during wakefulness with no evidence for focal generalized encephalopathy no evidence for potentially epileptogenic activity Solis Argueta MD
[2020-07-19] MEDS ORDERED: POTASSIUM CHLORIDE 40 MEQ in DEXTROSE 5% 1,000 ML IV SCH (10:30)
--- NOTE | 2020-07-19 11:47 | Gastroenterology Progress Note ---
Date of Service July 19, 2020 Assessment & Plan (1) Alcohol abuse: Discussed need for complete, permanent abstinence. Pt willing for counselling/rehab. (2) Acute pancreatitis: 1. Decrease IV fluid rate. 2. Adv diet to low fat, regular consistency. 3. Pt seems motivated to completely, permanently abstain from alcohol. She plans OP counselling with her . 7. OP GI follow up in 2 months to check to consider fibroscan and EUS. Our office will contact her to arrange. (3) Elevated liver enzymes: Likely from mild alcoholic hepatitis, improving. No indication for steroids due to low DF. Admission and Anticipated Discharge Date Admission Date: July 17, 2020 Supervising Physician Co-Signing Physician Notes I have seen, examined this patient, and agree with the findings and above by our mid-level provider HEIKE Almaraz, with the following additions - improved MRCP normal - advance diet - Etoh Cessation - GI follow up - Will sign off, call with questions Subjective Ms. Palomo is a 39-year-old female admitted with alcoholic pancreatitis also with elevated LFTs. Patient tells that she feels 95% better. She passed a bowel movement. Appetite is improved. Currently on clear liquids which she is tolerating well. WBCs, CR, LFTs all improving. Review of Systems Review of Systems: ROS: Gen: Denies weakness, fevers, weight loss Eyes: No eye redness, or pain, no recent vision changes Resp: No SOB, no cough Cardio: No palpitations/irregular beats, no chest pain GI: As per HPI otherwise (-) : Denies pain on urination Skin: No jaundice, itching or new rashes Physical Exam Constitutional: WD/WN, vitals as above well developed and + ill appearing Eyes: PERRL, conjunctivae normal, anicteric sclerae ENMT: external ear and nose normal, oropharynx normal Neck: trachea midline, no thyromegaly Respiratory: normal respiratory effort, lungs clear to auscultation Cardiovascular: RRR, no murmur, no edema Gastrointestinal (Abdomen): Inspection/Auscultation: normal bowel sounds; abdomen not distended and no abdominal edema Percussion/Palpation: + abdomen tender (minimal in the epigastric area) and abdomen soft; no guarding and abdomen not rigid Musculoskeletal: no cyanosis or clubbing, extremities motor strength 5/5 Skin: no rashes, warm and dry no jaundice Neurologic: PERRL, EOMI, accommodation nl, no face palsy, no dysarthria Psychiatric: A+Ox3, euthymic affect Orientation: oriented x 3 Speech: normal rate/rhythm/volume of speech Affect: no depressed affect and no anxious affect Judgement: good judgement Lymphatic: no cervical or axillary lymphadenopathy Results & Data ([facility]) Vital Signs (Past 12 Hours) Vital Signs Temp Pulse Pulse Pulse Resp BP Pulse Ox 07/19/20 07:54 36.6 C 118 H 20 124/90 99 07/19/20 07:45 102 H 07/19/20 04:17 37.4 C 106 H 16 122/83 96 Laboratory Results WBC 15->13, Cr improved to 1.46 LFTs are improving: Total bilirubin 3.9-> 1.5 today. AST 175, ALT 79, alk phos 75. (1) Acute pancreatitis Acute pancreatitis complication: unspecified Pancreatitis type: alcohol induced Qualified Code(s): K85.20 - Alcohol induced acute pancreatitis without necrosis or infection
[2020-07-19 12:16] VITALS: BP 108/72; PULSE 96; O2SAT 96
--- NOTE | 2020-07-19 12:46 | Discharge Summary ---
Date of Service July 19, 2020 Admission HPI Per Admitting Provider Patient is a 39-year-old female with history of alcohol abuse, anxiety, hypertension, likely nonischemic cardiomyopathy, with mildly reduced LV systolic function with mild global hypokinesis, EF 45 to 50%, who presents with abdominal pain, weakness, and episode of unresponsiveness. Patient states that she has been feeling poorly for past 2 to 3 days, she also reports that she quit drinking about 3 days ago. She has been vomiting for past 2 to 3 days, and had very poor oral intake. She has been very weak and dizzy, and fell about 3 times at home. Her reported in the ED, that as she was at the end of the staircase, she had episodes of unresponsiveness and he administered Narcan. At first it did not seem to work however she then recovered. Patient's is not currently at the bedside. However patient is alert and oriented and answering all questions appropriately. Currently her main concern is abdominal discomfort in her upper quadrants. She denies any fevers or chills. Denies any palpitations edema, shortness of breath, burning with urination or frequent urination. However she states that she did not void today. She says that she urinated several times yesterday afternoon. She also had a bowel movement yesterday which she reports normal, no blood in the stool or diarrhea. In the emergency room, white blood cell count was elevated at 16.6 thousand, glucose was low at 38, creatinine elevated at 4, pH 7.19, lactate 3.3, lipase 22,000, pro-Edmond 0.73, AST 318, ALT 84, T bili 3.9. Sodium low at 124, potassium 2.9, chloride 82. Images significant for acute pancreatitis. In the ED she received 1 L of normal saline, IV potassium, cefepime, thiamine and folic acid, and fentanyl for pain. Principal Diagnosis ALCOHOL ABUSE ALCOHOLIC PANCREATITIS ACUTE RENAL FAILURE LOW CA -DUE TO PANCREATITIS LOW MAGNESIUM , LOW PHOSPHORUS , LOW POTASSIUM PATIENT LEFT AGAINST MEDICAL ADVICE WITHOUT COMPLETING REQUIRED TREATMENT IN HOSPITAL Discharge Exam Constitutional WD/WN, vitals as above Eyes PERRL, conjunctivae normal, anicteric sclerae ENMT external ear and nose normal, oropharynx normal Neck trachea midline, no thyromegaly Respiratory normal respiratory effort, lungs clear to auscultation Cardiovascular RRR, no murmur, no edema Gastrointestinal (Abdomen) Inspection/Auscultation: normal bowel sounds Percussion/Palpation: abdomen soft Musculoskeletal no cyanosis or clubbing, extremities motor strength 5/5 Skin no rashes, warm and dry Neurologic PERRL, EOMI, accommodation nl, no face palsy, no dysarthria Psychiatric A+Ox3, euthymic affect Discharge Data Allergies Allergy/AdvReac Type Severity Reaction Status Date / Time tramadol AdvReac Severe SEIZURES Verified 07/17/20 08:35 Consultations 07/17/20 11:02 ED Decision to Admit Stat 07/17/20 11:23 Consult Gastroenterology Routine Consult Nephrology Routine 07/17/20 13:45 Consult Case Management - Discharge Planning Routine Ordered Studies 07/17/20 08:18 CT cervical spine wo con Stat CT head/brain wo con Stat 07/17/20 09:25 CT abd pelvis wo con Stat 07/17/20 09:31 CT chest without contrast [CT chest wo con] Stat 07/18/20 06:01 MR MRCP Routine Hospital Course (1) Episode of unresponsiveness: Alcohol abuse /withdrawal : report of heavy alcohol intake /abuse started on neurontin ETOH withdrawal protocol pt willing to have out pt ETOH rehab /counselling Patient had episode of unresponsiveness possible due to ETOH withdrawal ?- EEG shows no evidence of seizure also had electrolyte derangement -Low Na, Low phos , low ca , acute renal failure -due to ETOH abuse no further episode of unresponsiveness since admission Patient at this morning adamant to get discharged, counseling provided that she still have significant electrolyte derangement, will need to be treated inpatient for IV replacement and close lab monitoring, Increased risk of irregular heartbeat cardiac arrhythmia syncope without treatment, Patient understands the risk Wants to sign out AGAINST MEDICAL ADVICE (2) Acute pancreatitis: Due to ETOH abuse Patient presents with abdominal pain in upper quadrants, lipase elevated at 22,000, CT abdomen pelvis significant for acute pancreatitis Lipase level improved with IV fluids appreciate input from GI Need outpatient EUS Patient left AGAINST MEDICAL ADVICE today (3) Elevated liver enzymes: Due to alcoholic hepatitis AST elevated at 318, ALT 84, T bili 3.9 AST significantly elevated compared to ALT, consistent with alcoholic liver disease Counseling provided for alcohol abstinence, patient refused to go to inpatient alcohol rehab Left AMA (4) Acute kidney injury: Patient presents with severe ROXANA, creatinine 4, BUN 26 No prior history of kidney disease Likely secondary to dehydration/ETOH abuse cont IVF , cr gradually improving nephrology consulted -appreciate input, recommends continue IV fluids, low-dose bicarb drip, continue potassium supplement. Patient left AMA (5) High anion gap metabolic acidosis: Patient presents with metabolic acidosis, bicarb 11, pH 7.19 on VBG Lactate elevated at 3.3 Likely secondary to ETOH abuse , vomiting for several days, poor oral intake, lactic acid level normalized with IV fluid no evidence of infection /sepsis (6) Elevated lactic acid level: (7) Lactic acidosis: Lactic acid 3.3 Possibly secondary to dehydration, ETOH abuse (8) Acute hyponatremia: Sodium in the ED 124, chloride 82, likely secondary to dehydration /ETOH abuse Na level gradually corrected nephrology following (9) Hypoglycemia: (10) Hypokalemia: corrected Low phos: ordered for replacement Hypocalcemia : Ca 5.6 with low ionized ca ordered for Ca gluconate PO Ca supplement Nephrology following (11) Alcohol abuse: a (12) NICM (nonischemic cardiomyopathy): (13) Hypertension: Patient left AGAINST MEDICAL ADVICE Total Time Total Time Spent Total Time Spent (In Minutes): 35 mins Total Time Includes: Examination of the Patient, Discharge Planning, Medication Reconciliation and Communication With Other Providers Discharge Plan Discharge Items Patient Disposition: Against Medical Advice Reason For Visit: ACUTE PANCREATITIS,ACUTE RENAL FAILURE METABOLIC Discharge Diagnosis: ALCOHOL ABUSE ALCOHOLIC PANCREATITIS ACUTE RENAL FAILURE LOW CA -DUE TO PANCREATITIS LOW MAGNESIUM , LOW PHOSPHORUS , LOW POTASSIUM PATIENT LEFT AGAINST MEDICAL ADVICE WITHOUT COMPLETING REQUIRED TREATMENT IN HOSPITAL Activity: Resume your previous activity Non-emergency contact: Primary Care Provider Call non-emergency contact if: you have any medication questions Follow-up/Referrals: Rachel Márquez MD, PhD [Physician] - Hector Stark [Physician] - Peterson Lr MD [Primary Care Provider] - 07/24/20 2:40 pm (Date & Time 07/24/2020 2:40 PM Provider Peterson Lr MD Department [facility] [place] ) Diet: Low Fat Ambulatory Orders: Comprehensive Metabolic Panel (Routine) Timeframe: 1 Week Location: Determined by Patient Ordered By: Yuliana Ulloa Magnesium (Routine) Timeframe: 1 Week Location: Determined by Patient Ordered By: Yuliana Ulloa Phosphorus (Routine) Timeframe: 1 Week Location: Determined by Patient Ordered By: Yuliana Ulloa Addtl Attending Provider Instructions: COMPLETE ABSTINENCE FROM ALCOHOL RECOMMENDED ANY MORE DRINKING WILL CAUSE YOU HAVE LIFE THREATENING CONSEQUENCES DO NOT TAKE ASPIRIN , ADVIL , MOTRIN , NAPROXEN , ALEVE-NO NSAID OVER THE COUNTER PAIN MEDICATION NEED LAB CHECK IN A WEEK FOLLOW UP WITH GASTROENTERLOGY AND NEPHROLOGY Pending Studies at Discharge: Yes Studies:: LAB WORK : COMPREHENSIVE METABOLIC PANEL CALCIUM LEVEL PHOSPHORUS LEVEL MAGNESIUM LEVEL WITH NEXT PHYSICIAN VISIT Stand-Alone Forms: My [facility], Smoking Cessation Medications and DC Order Prescriptions: New calcium carbonate [Tums Extra Strength Smoothies] 300 mg (750 mg) tablet,chewable 600 mg PO TID 30 Days Qty: 180 RF: 0 potassium chloride 20 mEq tablet extended release 40 meq PO BID Qty: 60 RF: 0 cholecalciferol (vitamin D3) [Vitamin D3] 10 mcg (400 unit) capsule 400 unit PO DAILY Qty: 30 RF: 0 Continued thiamine HCl (vitamin B1) [Vitamin B-1] 100 mg Tablet 100 mg PO QAM Qty: 30 RF: 0 folic acid 1 mg Tablet 1 mg PO QAM Qty: 30 RF: 0 metoprolol tartrate 50 mg tablet 50 mg PO BID Qty: 60 RF: 0 hydroxyzine HCl 50 mg tablet 50 mg PO Q6H PRN (Reason: Anxiety) RF: 0 Discontinued losartan-hydrochlorothiazide 100-12.5 mg tablet 1 tab PO QAM RF: 0 Discharge Orders: Left Against Medical Advice (Routine); Ordered 07/19/20 Ordered By: Yuliana Ulloa Admission Data Admit Date/Time: 07/17/20 11:23 Attending Provider: Yuliana Ulloa Admit Provider: Paulino Higginbotham Primary Care Provider: Peterson Lr Other Providers: Paulino Higginbotham ; Hector Stark ; Rachel Márquez Other Interventions: Discharge Summary Assessment (RN) Last Done: 07/19/20 12:46
[2020-07-19] MEDS ORDERED: POT PHOSPHATE MONOBASIC W/ SOD TAB PO SCH (13:00)
--- NOTE | 2020-07-20 05:45 | Electrocardiogram Report ---
Test Reason : Blood Pressure : / mmHG Vent. Rate : 103 BPM Atrial Rate : 103 BPM P-R Int : 126 ms QRS Dur : 070 ms QT Int : 356 ms P-R-T Axes : 036 028 018 degrees QTc Int : 466 ms Sinus tachycardia Nonspecific ST abnormality Abnormal ECG When compared with ECG of 18-JUL-2020 06:52, QT has shortened Confirmed by Ugo Pham ([id number]) on 07/20/2020 5:45:04 AM Referred By: REFERRED SELF Confirmed By:Ugo Pham
[2020-07-20 07:05] LABS: Codeine Urine NEGATIVE ng/mL (<50); Hydrocodone Urine NEGATIVE ng/mL (<50); Hydromor Urine 409 ng/mL (<50); Morphine Urine NEGATIVE ng/mL (<50); Norhydrocodone Conf Ur NEGATIVE ng/mL (<50); Noroxycodone Urine NEGATIVE ng/mL (<50); Oxycodone Urine NEGATIVE ng/mL (<50); Oxymorph Urine NEGATIVE ng/mL (<50)
[2020-07-20] MEDS ORDERED: GABAPENTIN 400 MG CAP PO SCH (09:00)
[2020-07-21] MEDS ORDERED: GABAPENTIN 100 MG CAP PO SCH (09:00)
== END 2020-07-19 12:54 | disposition left against medical advice (07) | DRG 439 ==
LOC: ED 08:04 → SUATTDRO 11:23 → 2S 11:23

== ENCOUNTER 2020-07-26 23:14 | Inpatient (IN) ==
[2020-07-26] MEDS ORDERED: POTASSIUM CHLORIDE 10 MEQ TABCR PO STA (23:34)
--- NOTE | 2020-07-26 23:40 | Emergency Department Note ---
History of Present Illness General Chief complaint: Abnormal Labs/Diagnostic Testing Stated complaint: POTASSIUM LOW Time Seen by Provider: 07/26/20 23:29 Source: patient History of Present Illness Provider complaint: Low potassium Onset (ago): day(s) Severity: moderate Pain Consistency: + constant Quality: + other (Potassium 3.7) Relieved By: + none Associated symptoms: no chest pain, no cough, no fever/chills, no nausea/vomiting and no shortness of breath This is a 39-year-old female who was just admitted to the hospital for alcohol withdrawal and low potassium, magnesium, phosphorus and calcium. She is presenting today because her doctor called her and told her that her blood work showed a potassium of 2.7 and advised her to go to the emergency department. She states that the blood work was drawn 2 days ago. She currently has no symptoms. She has been eating and drinking normally. She is urinating without problems. She has no heart palpitations, lightheadedness, chest pain, shortness of breath, abdominal pain, cough or cold symptoms or fever or known exposure to COVID-19. She has not been drinking any alcohol and was told that her lipase was good. Home Medications Home Medications Medication Instructions Recorded Confirmed Type folic acid 1 mg PO QAM #30 tab 06/14/20 07/27/20 Rx thiamine HCl (vitamin B1) [Vitamin 100 mg PO QAM #30 tab 06/14/20 07/27/20 Rx B-1] calcium carbonate [Tums Extra 600 mg PO TID 30 Days #180 tab 07/19/20 07/27/20 Rx Strength Smoothies] Allergies Allergy/AdvReac Type Severity Reaction Status Date / Time tramadol AdvReac Severe SEIZURES Verified 07/27/20 00:01 Past Med/Surg History Medical History Alcohol abuse Anxiety History of narcotic addiction Hypertension Migraine Nonischemic cardiomyopathy Surgical History History of dental surgery History of laparoscopic cholecystectomy Family History Grandfather (Paternal) Diabetes Grandmother (Maternal) Diabetes Social History Smoking Status: Never smoker Second Hand Exposure: No; Hx Alcohol Use: Yes Alcohol type: hard liquor Alcohol type Comment: and pt split 1 pint of liquor/week Alcohol Intake Frequency: 4 or More x per/Week Alcohol Intake Frequency Comment: 2-3 alcoholic beverages approx q. other day Hx Substance Use: No Preferred Language: Urdu Communication Ability: Effective Early Years Teacher Required: No Beliefs That Will Affect Care: None marital status: Current Living Situation: Spouse How many Children do You have: 5 Feels Safe at Home: Yes Assistive Devices: None Review of Systems See HPI for pertinent positives & negatives. and A total of 10 systems reviewed and were otherwise negative Physical Exam Vital Signs Vital Signs - 24 hr 07/26/20 23:23 07/27/20 00:28 Temperature 37.5 C Temperature Source Oral Pulse Rate 114 H 99 H Respiratory Rate 18 25 H Blood Pressure 158/122 H 154/111 H Blood Pressure Mean 134 116 Pulse Oximetry 98 96 Oxygen Delivery Method Room Air Room Air Sepsis Recent Fever Within 48 Hours No Sepsis New/Unexplained Change in Mental Status No Sepsis Action Taken by Nursing No Action Required Constitutional: Vital signs reviewed. Eyes: Pupils are equal round reactive to light. Conjunctiva are noninjected. ENT: Pharynx is clear without erythema or exudate. Mucous membranes are moist. Neck supple without meningeal signs. Respiratory: Clear to auscultation bilaterally. Breath sounds are equal bilaterally. Cardiovascular: Regular rhythm. Mild tachycardia. GI: Soft, nondistended and nontender. Bowel sounds are present. Musculoskeletal: No peripheral edema. No lower extremity tenderness. Integumentary: No cyanosis. or jaundice. Neurological: The patient is awake and alert. No focal deficits. Psychiatric: Slightly anxious. Course Administered Medications Discontinued Medications Potassium Chloride (Potassium Chloride 10 Meq Tabcr) 40 meq PO NOW STA Stop: 07/26/20 23:35 Last Admin: 07/26/20 23:49 Dose: 40 meq Documented by: [id number] Medical Decision Making Differential Diagnosis Hypokalemia, hypomagnesemia, hyponatremia, hypocalcemia, hypophosphatemia Medical Records Attestation: I reviewed the patient's medical records. The patient was admitted to the hospital and discharged on July 19. She left AGAINST MEDICAL ADVICE. She had been admitted for alcohol withdrawal and low sodium, calcium, magnesium, potassium and pancreatitis. Home Medications Current Medication List: was personally reviewed by me Laboratory Data Attestation: I reviewed the patient's lab results. Result diagrams: 07/26/20 23:46 07/26/20 23:46 Lab Results 07/26/20 07/26/20 Range/Units 23:46 23:46 WBC 18.29 H (4.8-10.8) K/uL RBC 3.30 L (4.2-5.4) M/uL Hgb 11.3 L (12.0-16.0) g/dL Hct 33.0 L (37-47) % MCV 100.0 (80-100) fL MCH 34.2 H (25-34) pg MCHC 34.2 (32-36) g/dL RDW Std Deviation 51.8 H (36.4-46.3) fL RDW Coeff of Hanna 14.2 (11.5-14.5) % Plt Count 797 H (130-400) K/uL MPV 9.3 (7.4-10.4) fL Immature Gran % (Auto) 0.3 % Neut % (Auto) 80.5 % Lymph % (Auto) 11.1 % Norman % (Auto) 7.6 % Eos % (Auto) 0.3 % Baso % (Auto) 0.2 % Neut # (Auto) 14.74 H (1.4-6.5) K/uL Lymph # (Auto) 2.03 (1.2-3.4) K/uL Norman # (Auto) 1.39 H (0.11-0.59) K/uL Eos # (Auto) 0.05 (0-0.5) K/uL Baso # (Auto) 0.03 (0-0.2) K/uL Immature Gran # (Auto) 0.05 H (0.00-0.02) K/uL Sodium 137 (136-145) mmol/L Potassium 2.4 L* (3.5-5.1) mmol/L Chloride 96 L (98-107) mmol/L Carbon Dioxide 34 H (21-32) mmol/L Anion Gap 6.0 (3-11) BUN 8 (7-18) mg/dl Creatinine 0.57 L (0.6-1.2) mg/dl Est Cr Clr Drug Dosing 120.9 ml/min Est GFR ( Amer) 134.4 Est GFR (Non-Af Amer) 116.0 BUN/Creatinine Ratio 14.2 (10-20) Glucose 114 H (70-99) mg/dl Calcium 7.8 L (8.5-10.1) mg/dl Phosphorus 3.8 (2.5-4.9) mg/dl Magnesium 0.9 L* (1.8-2.4) mg/dl Lipase 195 (73-393) U/L ECG Data Attestation: I personally reviewed and interpreted this ECG as follows: Indication: + other (Electrolyte abnormality) Rate (beats per minute): 106 Rhythm: + sinus tachycardia ECG Intervals/blocks: + Prolonged QT (QTC is 456 ms) ECG ST segments: + Nonspecific ST abnormalities ECG Findings: no PVCs MDM Narrative I did evaluate the patient as noted above. The patient is asymptomatic but she is presenting with a potassium of 2.7. Blood work was drawn 2 days ago. She was told to come to the emergency department by her doctor. IV access was established. I did place an order for continuous cardiac monitoring. The monitor showed sinus tachycardia at a rate of 110 bpm. She does state that she is anxious. I did order and personally review the patient's 12-lead EKG as described above. I did order and review the patient's blood work as noted in the electronic medical record. Her white count is 18,000. Hemoglobin is 11.3. Platelets are 797. Potassium is 2.4 and magnesium is 0.9. Comparing this to her blood work from [facility] drawn on July 24 her white count was 19.3, hemoglobin 12.3 and platelet count 549, potassium was 2.7. I did treat the patient with IV magnesium as well as IV KCl. She was also given K. Dur 40 mEq p.o. I did discuss the test results with the patient. I did recommend hospitalization for further care and evaluation. I did discuss the case with the hospitalist and community case manager. Impression & Plan Hypomagnesemia, Hypokalemia, Leukocytosis, Thrombocytosis, Tachycardia Discharge Plan Visit Data Chief Complaint: Abnormal Labs/Diagnostic Testing Stated Complaint: POTASSIUM LOW ED Provider: Apollo Moya Discharge Problem: Hypomagnesemia, Hypokalemia, Leukocytosis, Thrombocytosis, Tachycardia Patient Disposition: Being Evaluated by Hospitalist Forms Stand Alone Forms: My [facility] Prescriptions Prescriptions: No Action thiamine HCl (vitamin B1) [Vitamin B-1] 100 mg Tablet 100 mg PO QAM Qty: 30 RF: 0 folic acid 1 mg Tablet 1 mg PO QAM Qty: 30 RF: 0 calcium carbonate [Tums Extra Strength Smoothies] 300 mg (750 mg) tablet,chewable 600 mg PO TID 30 Days Qty: 180 RF: 0 Referrals Referrals: Peterson Lr MD [Primary Care Provider] -
[2020-07-26 23:56] LABS: Basophils # (auto) 0.03 K/uL (0-0.2); Basophils % (auto) 0.2 %; Eosinophils # (auto) 0.05 K/uL (0-0.5); Eosinophils % (auto) 0.3 %; Hemoglobin 11.3 g/dL (12.0-16.0); Immature Granulocytes # (auto) 0.05 K/uL (0.00-0.02); Immature Granulocytes % (auto) 0.3 %; Lymphocytes # (auto) 2.03 K/uL (1.2-3.4); Lymphocytes % (auto) 11.1 %; Mean Corpuscular Hemoglobin 34.2 pg (25-34); Mean Corpuscular Hgb Conc 34.2 g/dL (32-36); Mean Platelet Volume 9.3 fL (7.4-10.4); Monocytes # (auto) 1.39 K/uL (0.11-0.59); Monocytes % (auto) 7.6 %; Neutrophils # (auto) 14.74 K/uL (1.4-6.5); Neutrophils % (auto) 80.5 %; Platelet Count 797 K/uL (130-400); RDW Coefficient of Variation 14.2 % (11.5-14.5); RDW Standard Deviation 51.8 fL (36.4-46.3); White Blood Count 18.29 K/uL (4.8-10.8)
[2020-07-27 00:30] LABS: BUN Creatinine Ratio 14.2 (10-20); Calcium 7.8 mg/dl (8.5-10.1); Creatinine Clr Calc Pharmacy 120.9 ml/min; Est GFR (African American) 134.4; Magnesium 0.9 mg/dl (1.8-2.4); Phosphorus 3.8 mg/dl (2.5-4.9); Potassium 2.4 mmol/L (3.5-5.1)
[2020-07-27] MEDS ORDERED: POTASSIUM CHLORIDE / WTR 10 MEQ/100 ML PLCT IV ONE (00:30)
[2020-07-27] MEDS: MAGNESIUM SULFATE / D5W 1 GM/100 ML BAG IV SCH ×5 (00:47→08:03)
[2020-07-27] MEDS ORDERED: POTASSIUM CHLORIDE PWD 20 MEQ PACK PO STA ×2 (00:53→05:16)
[2020-07-27 01:11] LABS: Albumin Level 2.2 gm/dl (3.4-5.0); Bilirubin Direct 0.3 mg/dl (0-0.2); Bilirubin,Total 0.7 mg/dl (0.2-1); Total Protein 6.4 gm/dl (6.4-8.2)
[2020-07-27] MEDS ORDERED: PIPERACILLIN/TAZOBACTAM 4.5 GM/120 ML BAG IV ONE (01:32)
[2020-07-27] MEDS ORDERED: PIPERACILL/TAZOBAC CONSULT ACTIVE PRN (01:32)
[2020-07-27] MEDS ORDERED: IOVERSOL 100ml IV ONE (01:35)
[2020-07-27] MEDS ORDERED: POTASSIUM CHLORIDE 40 MEQ in SODIUM CHLORIDE 0.9% 1000ML 1,000 ML IV ONE (02:00)
[2020-07-27 02:54] LABS: Reticulocyte % 1.6 % (0.5-2.0); Reticulocytes # 0.05 10^6/uL (0.02-0.10)
[2020-07-27 03:15] LABS: Ferritin 472.7 ng/ml (8-388)
--- NOTE | 2020-07-27 03:20 | Consultation ---
Date of Consultation July 27, 2020 Assessment & Plan (1) Fluid collection of pancreas: -due to patient's recent history of pancreatitis, collection could represent pseudocyst or abscess -as the pt. is hemodynamically stable and currently does not appear septic, the hospitalist are planning on admission with the following plans: -electrolyte repletion -antibiotics--zosyn -agree with the above measures -currently no need for surgical intervention -would also consider: -GI consult concerning fluid collection -if drainage felt to be needed may need to transfer to center where IR can perform percutaneous drainage if radiiology cannot do here -consider vascular consult for splenic artery aneurysm Supervising Physician Co-Signing Physician Notes I personally saw and evaluated the patient and agree with Fletcher Jaime's assessment and plan. 39 yo female admitted with electrolyte abnormalities and pancreatitis -CT results and images reviewed, as well as notes from previous admission -Her CT scan does look like she is developing kim-pancreatic fluid collections after her recent bout of pancreatitis -Ideally you would not drain (percutaneously or endoscopically) at this time as there are no signs of infection (air bubbles) within the collections -Would recommend GI consult if patient is going to stay at [facility] as they were following her during her previous admission -Trend labs, continue IV hydration -No need for ABX for her pancreatitis at this point -If she begins to have signs of MSOF, would repeat CT with IV and PO contrast to evaluate for infected kim-pancreatic fluid collections which could be drained percutaneously at that time, otherwise repeat imaging can be done in another 4-6 weeks to re-evaluate the collections -No plans for any surgical intervention -Please call with any questions or concerns History of Present Illness History of Present Illness 39 year old female presented to [facility] ED at the direction of one of her outpt. physicians due to abnormal labs. The pt. notes that last month she was admitted to [facility] due to alcoholic pancreatitis. She was seen by GI at that time and an outpt. EUS was recommended. It is noted that she ultimately signed out AMA. With her current presentation she denies fevers, shakes, chills. She has abdominal pain in the epigastric area that she notes is residual from her prior episode of pancreatitis and is markedly better than during her previous admission. She does note since her last hospitalization she has not been eating well as certain food have "not agreed with her." She state she has since abstained from any ETOH consumption. In the ED this evening, she was noted to have a WBC of 18K, potassium of 2.4, magnesium of 0.9, and a normal lipase. The admitting hospitalist obtained a CT scan of the abdomen which showed concern for pancreatic stranding without necrosis. An 11 x 8 x 5 cm fluid collection in the lesser sac with mass effect on the stomach concerning for possible pancreatic abscess was noted. Also of note there was concern for a splenic artery aneurysm. Review of prior imaging did not demonstrate the fluid collection noted at this time. At the time of my exam she was in no distress, resting comfortably in bed. Allergies Allergy/AdvReac Type Severity Reaction Status Date / Time tramadol AdvReac Severe SEIZURES Verified 07/27/20 00:01 Home Medications Home Medications Medication Instructions Recorded Confirmed Type folic acid 1 mg PO QAM #30 tab 06/14/20 07/27/20 Rx thiamine HCl (vitamin B1) [Vitamin 100 mg PO QAM #30 tab 06/14/20 07/27/20 Rx B-1] calcium carbonate [Tums Extra 600 mg PO TID 30 Days #180 tab 07/19/20 07/27/20 Rx Strength Smoothies] Patient History Medical History Alcohol abuse Anxiety History of narcotic addiction Hypertension Migraine Nonischemic cardiomyopathy Surgical History History of dental surgery History of laparoscopic cholecystectomy Family History Grandfather (Paternal) Diabetes Grandmother (Maternal) Diabetes Social History Smoking Status: Never smoker Second Hand Exposure: No; Hx Alcohol Use: Yes Alcohol type: hard liquor Alcohol type Comment: and pt split 1 pint of liquor/week Alcohol Intake Frequency: 4 or More x per/Week Alcohol Intake Frequency Comment: 2-3 alcoholic beverages approx q. 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 And Wind Instrument Repairer Required: No Beliefs That Will Affect Care: None marital status: Current Living Situation: Spouse How many Children do You have: 5 Feels Safe at Home: Yes Assistive Devices: None Review of Systems Constitutional: no fever, no chills and no fatigue Eyes: no diplopia Ear, Nose, Mouth, Throat: no ear pain Respiratory: no cough and no dyspnea Cardiovascular: no chest pain Gastrointestinal: + abdominal pain (improved since most recent admission; exacerbated by eating certain foods); no nausea, no vomiting, no coffee ground emesis, no change in bowel habits, no constipation and no diarrhea/loose stools Genitourinary: no dysuria Musculoskeletal: no back pain Integumentary: no rash Neurologic: no localized weakness Physical Exam Constitutional: well developed and well nourished; no acute distress Eyes: + anicteric sclerae ENMT: Ears: no external ear abnormality no sublingual jaundice Neck: trachea midline, no thyromegaly Respiratory: normal respiratory effort, lungs clear to auscultation Cardiovascular: Rate/Rhythm: regular rate and regular rhythm Vessels: dorsalis pedis pulses present Gastrointestinal (Abdomen): soft, minimal bloating noted; BS are present; TTP with deep palpation in epigastric area; non-TTP with light palpation; no rebound tenderness or guarding; no palpable genaro Musculoskeletal: no calf pain Skin: no rashes, warm and dry no jaundice Neurologic: moves all extremities Psychiatric: A+Ox3, euthymic affect Results & Data ([facility]) Vital Signs (Past 12 Hours) Vital Signs Temp Pulse Resp BP Pulse Ox 07/27/20 02:23 99 H 26 H 138/100 96 07/27/20 01:57 114 H 20 149/112 H 95 07/27/20 00:56 94 H 23 146/111 H 07/27/20 00:28 99 H 25 H 154/111 H 96 07/26/20 23:23 37.5 C 114 H 18 158/122 H 98
[2020-07-27 03:28] LABS: Folate (Folic Acid) 11.58 ng/ml (>5.38)
[2020-07-27] MEDS ORDERED: LORazepam 0.5 MG/1 ML VIAL IV PRN (04:42)
[2020-07-27] MEDS ORDERED: LORazepam 2 MG/4 ML VIAL ONE (04:44)
--- NOTE | 2020-07-27 05:09 | History & Physical Report ---
Date of Service July 27, 2020 Assessment & Plan (1) Sepsis: Secondary to peripancreatic abscess initial CT read Recent bout of alcoholic pancreatitis Hypomagnesemia, hypokalemia History of nonischemic cardiomyopathy as per records, patient euvolemic Anemia, stool Hemoccult negative Medical telemetry Cultures, Zosyn Replace electrolytes Transfer to [facility] once bed available. DVT prophylaxis. Lovenox subcu Full code Text document was generated using [employer] voice recognition software. It may contain grammatical or spelling errors. Kindly contact undersigned for clarification of any documentation item in question. History of Present Illness Chief Complaint: Low potassium Primary Care Provider: Peterson Lr MD History obtained from patient and records. Medical history significant for nonischemic cardiomyopathy (EF 45 to 50% TTE 2019), past alcohol abuse. Recent confinement last week for alcoholic pancreatitis. Patient signed out AGAINST MEDICAL ADVICE. Persistent achy epigastric pain since discharge from the hospital. Eating okay. No diarrhea No chest pain, no SOB. Quit alcohol since leaving hospital as per patient. Patient saw PCP on follow-up 3 days ago. Outpatient blood work ordered given low potassium on discharge last week. Outpatient serum potassium noted to be 2.7. Patient sent to the ER by PCP for abnormal blood work. Initial CT abdomen pelvis read as follows: Parapancreatic stranding and fluid extending into the pararenal spaces consistent with acute pancreatitis. 11 x 8 x 5 cm lesser sac peripancreatic abscess with adjacent stranding and mass-effect upon the stomach. No definite evidence of pancreatic necrosis. 16mm hyperdense mass near the pancreatic tail which may be splenic artery aneurysm versus pseudoaneurysm. Fatty liver. Nonobstructing right renal calculus. Status post cholecystectomy. Fat-containing per umbilical ventral abdominal wall hernia. IV Zosyn given at the ER. Dr. Saez ([facility] GI specialist polymerization oven operator) contacted regarding peripancreatic abscess as per General Surgery service recommendations. He recommends transfer to [facility] for IR capability given patient sepsis. Patient kindly accepted for transfer by Dr. Ramos of the [facility] hospitalist service pending bed availability. Case also discussed with Dr. Rubio ([facility]) as per Dr. Ramos's request. 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 Allergies Allergy/AdvReac Type Severity Reaction Status Date / Time tramadol AdvReac Severe SEIZURES Verified 07/27/20 00:01 Home Medications Home Medications Medication Instructions Recorded Confirmed Type folic acid 1 mg PO QAM #30 tab 06/14/20 07/27/20 Rx thiamine HCl (vitamin B1) [Vitamin 100 mg PO QAM #30 tab 06/14/20 07/27/20 Rx B-1] calcium carbonate [Tums Extra 600 mg PO TID 30 Days #180 tab 07/19/20 07/27/20 Rx Strength Smoothies] Past Med/Surg History Medical History Alcohol abuse Anxiety History of narcotic addiction Hypertension Migraine Nonischemic cardiomyopathy Surgical History History of dental surgery History of laparoscopic cholecystectomy Family History Grandfather (Paternal) Diabetes Grandmother (Maternal) Diabetes Social History Smoking Status: Never smoker Second Hand Exposure: No; Hx Alcohol Use: Yes Alcohol type: hard liquor Alcohol type Comment: and pt split 1 pint of liquor/week Alcohol Intake Frequency: 4 or More x per/Week Alcohol Intake Frequency Comment: 2-3 alcoholic beverages approx q. other day Hx Substance Use: No Preferred Language: Frisian Communication Ability: Effective Public Relations Director Required: No Beliefs That Will Affect Care: None marital status: Current Living Situation: Spouse How many Children do You have: 5 Feels Safe at Home: Yes Assistive Devices: None Review of Systems Review of Systems: As per HPI, all 10 systems reviewed, all other ROS negative Physical Exam Physical Exam: GENERAL: Slightly anxious, tearful , no respiratory distress SKIN: Pallor , warm HEENT: Bespectacled, pale palpebral conjunctivae, no ptosis, dry buccal mucosa NECK : Supple, no tenderness CHEST : CTA, no tenderness HEART : Tachycardic, no obvious murmurs ABDOMEN: Some distention, epigastric tenderness RECTAL : Intact sphincter, brown stool (FOBT negative) EXTREMITIES : No LE swelling/tenderness, no other conspicuous deformities noted NEUROLOGIC : Coherent, no facial asymmetry, no other gross focality Results & Data Results & Data ([facility]) Vital Signs (Past 12 Hours) Vital Signs Temp Pulse Resp BP Pulse Ox 07/27/20 04:00 99 H 24 146/111 H 07/27/20 03:00 119 H 20 151/107 H 07/27/20 02:23 99 H 26 H 138/100 96 07/27/20 01:57 114 H 20 149/112 H 95 07/27/20 00:56 94 H 23 146/111 H 07/27/20 00:28 99 H 25 H 154/111 H 96 07/26/20 23:23 37.5 C 114 H 18 158/122 H 98 Laboratory Results Laboratory Results WBC 18.29 K/uL (4.8-10.8) H 07/26/20 23:46 RBC 3.30 M/uL (4.2-5.4) L 07/26/20 23:46 Hgb 11.3 g/dL (12.0-16.0) L 07/26/20 23:46 Hct 33.0 % (37-47) L 07/26/20 23:46 MCV 100.0 fL (80-100) 07/26/20 23:46 MCH 34.2 pg (25-34) H 07/26/20 23:46 MCHC 34.2 g/dL (32-36) 07/26/20 23:46 RDW Std Deviation 51.8 fL (36.4-46.3) H 07/26/20 23:46 RDW Coeff of Hanna 14.2 % (11.5-14.5) 07/26/20 23:46 Plt Count 797 K/uL (130-400) H 07/26/20 23:46 MPV 9.3 fL (7.4-10.4) 07/26/20 23:46 Immature Gran % (Auto) 0.3 % 07/26/20 23:46 Neut % (Auto) 80.5 % 07/26/20 23:46 Lymph % (Auto) 11.1 % 07/26/20 23:46 Whiteside % (Auto) 7.6 % 07/26/20 23:46 Eos % (Auto) 0.3 % 07/26/20 23:46 Baso % (Auto) 0.2 % 07/26/20 23:46 Reticulocyte % (Auto) 1.6 % (0.5-2.0) 07/27/20 02:37 Neut # (Auto) 14.74 K/uL (1.4-6.5) H 07/26/20 23:46 Lymph # (Auto) 2.03 K/uL (1.2-3.4) 07/26/20 23:46 Whiteside # (Auto) 1.39 K/uL (0.11-0.59) H 07/26/20 23:46 Eos # (Auto) 0.05 K/uL (0-0.5) 07/26/20 23:46 Baso # (Auto) 0.03 K/uL (0-0.2) 07/26/20 23:46 Reticulocyte # 0.05 10^6/uL (0.02-0.10) 07/27/20 02:37 Immature Gran # (Auto) 0.05 K/uL (0.00-0.02) H 07/26/20 23:46 Sodium 137 mmol/L (136-145) 07/26/20 23:46 Potassium 2.4 mmol/L (3.5-5.1) L* 07/26/20 23:46 Chloride 96 mmol/L (98-107) L 07/26/20 23:46 Carbon Dioxide 34 mmol/L (21-32) H 07/26/20 23:46 Anion Gap 6.0 (3-11) 07/26/20 23:46 BUN 8 mg/dl (7-18) 07/26/20 23:46 Creatinine 0.57 mg/dl (0.6-1.2) L 07/26/20 23:46 Est Cr Clr Drug Dosing 120.9 ml/min 07/26/20 23:46 Est GFR ( Amer) 134.4 07/26/20 23:46 Est GFR (Non-Af Amer) 116.0 07/26/20 23:46 BUN/Creatinine Ratio 14.2 (10-20) 07/26/20 23:46 Glucose 114 mg/dl (70-99) H 07/26/20 23:46 Lactate 1.7 mmol/L (0.4-2.0) 07/27/20 01:56 Calcium 7.8 mg/dl (8.5-10.1) L 07/26/20 23:46 Phosphorus 3.8 mg/dl (2.5-4.9) 07/26/20 23:46 Magnesium 0.9 mg/dl (1.8-2.4) L* 07/26/20 23:46 Iron 16 mcg/dl (35-150) L 07/27/20 02:37 TIBC 201 mcg/dl (250-450) L 07/27/20 02:37 Transferrin 173 mg/dl (200-360) L 07/27/20 02:37 Ferritin 472.7 ng/ml (8-388) H 07/27/20 02:37 Total Bilirubin 0.7 mg/dl (0.2-1) 07/26/20 23:46 Direct Bilirubin 0.3 mg/dl (0-0.2) H 07/26/20 23:46 AST 80 U/L (15-37) H 07/26/20 23:46 ALT 34 U/L (12-78) 07/26/20 23:46 Alkaline Phosphatase 162 U/L (45-117) H 07/26/20 23:46 Total Protein 6.4 gm/dl (6.4-8.2) 07/26/20 23:46 Albumin 2.2 gm/dl (3.4-5.0) L 07/26/20 23:46 Lipase 195 U/L (73-393) 07/26/20 23:46 Vitamin B12 1733 pg/ml (211-911) H 07/27/20 02:37 Folate 11.58 ng/ml (>5.38) 07/27/20 02:37 Procalcitonin 44.87 ng/ml (0-0.5) H 07/26/20 23:46 Ethyl Alcohol mg/dL < 3.0 mg/dl (0-3) 07/27/20 02:37 Blood Type A Positive 07/27/20 02:37 Antibody Screen NEGATIVE 07/27/20 02:[address] abdomen pelvis initial read as per HPI Chest x-ray as per my interpretation atelectasis EKG as per my interpretation : Rate 105, sinus tachycardia, normal axis, diffuse T wave abnormalities
[2020-07-27] MEDS ORDERED: POTASSIUM CHLORIDE 20 MEQ TABCR PO STA ×2 (05:31→15:02)
[2020-07-27] MEDS ORDERED: MoRPHine SULFATE 4 MG/ML 1 ML CARP\\VIAL IV PRN (06:12)
[2020-07-27] MEDS ORDERED: PROMETHAZINE HCL 12.5 MG in SODIUM CHLORIDE 0.9% 50 ML IV PRN (06:12)
[2020-07-27] MEDS ORDERED: ACETAMINOPHEN 325 MG TAB PO PRN (06:12)
[2020-07-27] MEDS ORDERED: oxyCODONE HCL IR 5 MG TAB (IMMEDIATE RELEASE) PO PRN (06:12)
--- NOTE | 2020-07-27 07:37 | CT Scan Report ---
CT abd pelvis IV con only CLINICAL HISTORY: Epigastric pain. History of pancreatitis. COMPARISON STUDY: 07/17/2020 TECHNIQUE: The patient was scanned in a dynamic helical fashion during intravenous administration of 70 cc of Optiray 320. There is an apparent injector malfunction, and little if any contrast is visual ized on this study. A dose lowering technique was utilized adhering to the principles of ALARA. CT DOSE: 426.55 mGy.cm FINDINGS: Lower chest: There are bibasilar atelectatic changes. There is a trace left pleural effusion Liver: There is hepatic steatosis. The liver is mildly enlarged No focal masses are visualized. Gallbladder: Surgically absent Spleen: Normal in size and attenuation. Pancreas: There is marked worsening in the previously identified pancreatitis. There is marked infilt ration of the peripancreatic fat. There is a 10 x 7.5 x 5 cm peripancreatic fluid collection abutting the posterior inferior aspect of the stomach. There are no air bubbles within this collection. There is a 14 mm hyperdense focus in the region of the left splenic hilum. While likely representing a spl enule, given its location and the associated pancreatitis, a splenic artery aneurysm/pseudoaneurysm c annot be excluded with certainty. Adrenal glands: Unremarkable. Kidneys: There is a stable 2.5 mm right renal calcification. There is no hydronephrosis. Bowel: There are no transition zones indicate bowel obstruction. The appendix appears normal. There i s no evidence of acute diverticulitis. Peritoneum: There is no free intraperitoneal air. There is minimal fluid in the paracolic gutters. Th ere is a fat-containing umbilical hernia Vasculature: The abdominal aorta is normal in course and caliber. Adenopathy: None. Pelvic viscera: The bladder, and pelvic viscera are unremarkable. Skeletal structures: No destructive osseous lesions are seen. IMPRESSION: 1. No evidence of bowel obstruction. No evidence of free air 2. Hepatic steatosis and mild hepatomegaly 3. Significant worsening in the patient's pancreatitis. 4. Interval development of a 10 x 7.5 x 5 cm acute pancreatic fluid collection abutting the posterior inferior stomach. No air bubbles are visualized within this collection. ACT 112: Negative or not required by law. Electronically signed by: Andrade Singh M.D. 07/27/2020 7:36 AM
[2020-07-27] MEDS ORDERED: LACTATED RINGER'S 1,000 ML IV SCH (08:00)
[2020-07-27] MEDS ORDERED: PIPERACILLIN/TAZOBACTAM 3.375 GM in DEXTROSE 5% 100 ML IV SCH (08:00)
[2020-07-27] MEDS: CALCIUM CARBONATE 500 MG CHEWABLE TAB PO SCH ×2 (08:04→13:20)
--- NOTE | 2020-07-27 08:21 | XRay Report ---
SINGLE VIEW CHEST CLINICAL HISTORY: Tachypnea. FINDINGS: An AP, portable, upright chest radiograph is compared to chest x-ray and chest CT dated 06/20. The cardiomediastinal silhouette is unremarkable. There is mild bibasilar atelectasis. Questi on trace pleural effusions. No airspace consolidation is seen typical for pneumonia. No pneumothorax is identified. The bony thorax is grossly intact. IMPRESSION: Question trace pleural effusions. ACT 112: Negative or not required by law. Electronically signed by: Lonnie Mcdaniel M.D. 07/27/2020 8:20 AM
[2020-07-27] MEDS ORDERED: ENOXAPARIN INJ 40 MG/0.4 ML SYR SQ SCH (09:00)
[2020-07-27] MEDS ORDERED: THIAMINE HCL 100 MG TAB PO SCH (09:00)
[2020-07-27] MEDS ORDERED: FOLIC ACID 1 MG TAB PO SCH (09:00)
[2020-07-27 09:31] VITALS: BP 156/102; TEMP 99.7; O2SAT 97
--- NOTE | 2020-07-27 11:51 | Electrocardiogram Report ---
Test Reason : Blood Pressure : / mmHG Vent. Rate : 106 BPM Atrial Rate : 106 BPM P-R Int : 120 ms QRS Dur : 074 ms QT Int : 344 ms P-R-T Axes : 041 034 028 degrees QTc Int : 456 ms Sinus tachycardia Nonspecific T wave abnormality Abnormal ECG When compared with ECG of 19-JUL-2020 06:55, Nonspecific T wave abnormality now evident in Anterolateral leads Confirmed by Giovany Krueger ([id number]) on 07/27/2020 11:50:36 AM Referred By: Peterson Lr Confirmed By:Devin Krueger
--- NOTE | 2020-07-27 12:45 | Discharge Summary ---
Date of Service July 27, 2020 Admission HPI Per Admitting Provider History obtained from patient and records. Medical history significant for nonischemic cardiomyopathy (EF 45 to 50% TTE 2019), past alcohol abuse. Recent confinement last week for alcoholic pancreatitis. Patient signed out AGAINST MEDICAL ADVICE. Persistent achy epigastric pain since discharge from the hospital. Eating okay. No diarrhea No chest pain, no SOB. Quit alcohol since leaving hospital as per patient. Patient saw PCP on follow-up 3 days ago. Outpatient blood work ordered given low potassium on discharge last week. Outpatient serum potassium noted to be 2.7. Patient sent to the ER by PCP for abnormal blood work. Initial CT abdomen pelvis read as follows: Parapancreatic stranding and fluid extending into the pararenal spaces consistent with acute pancreatitis. 11 x 8 x 5 cm lesser sac peripancreatic abscess with adjacent stranding and mass-effect upon the stomach. No definite evidence of pancreatic necrosis. 16mm hyperdense mass near the pancreatic tail which may be splenic artery aneurysm versus pseudoaneurysm. Fatty liver. Nonobstructing right renal calculus. Status post cholecystectomy. Fat-containing per umbilical ventral abdominal wall hernia. IV Zosyn given at the ER. Dr. Saez ([facility] GI specialist research consultant) contacted regarding peripancreatic abscess as per General Surgery service recommendations. He recommends transfer to [facility] for IR capability given patient sepsis. Patient kindly accepted for transfer by Dr. Ramos of the [facility] hospitalist service pending bed availability. Case also discussed with Dr. Rubio ([facility]) as per Dr. Ramos's request. 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 Admission Exam Per Admitting Provider GENERAL: Slightly anxious, tearful , no respiratory distress SKIN: Pallor , warm HEENT: Bespectacled, pale palpebral conjunctivae, no ptosis, dry buccal mucosa NECK : Supple, no tenderness CHEST : CTA, no tenderness HEART : Tachycardic, no obvious murmurs ABDOMEN: Some distention, epigastric tenderness RECTAL : Intact sphincter, brown stool (FOBT negative) EXTREMITIES : No LE swelling/tenderness, no other conspicuous deformities noted NEUROLOGIC : Coherent, no facial asymmetry, no other gross focality Principal Diagnosis Sepsis secondary to peripancreatic abscess Electrolyte abnormalities, hypokalemia, hypomagnesemia Discharge Exam GENERAL: Slightly anxious female, in no respiratory distress HEENT: Normocephalic, atraumatic, EOMI, PERRL, no ptosis, dry buccal mucosa NECK : Supple, no tenderness CHEST : CTA, no tenderness HEART : Tachycardic, no obvious murmurs ABDOMEN: Soft, positive bowel sounds, some distention, mild epigastric tenderness to palpation EXTREMITIES : No LE swelling/tenderness, moves all 4 extremities SKIN: warm, dry NEUROLOGIC : Alert and oriented x3, no facial asymmetry, speech fluent, anxious, moves all 4 extremities Discharge Data Allergies Allergy/AdvReac Type Severity Reaction Status Date / Time tramadol AdvReac Severe SEIZURES Verified 07/27/20 00:01 Consultations 07/27/20 00:40 ED Decision to Admit Stat 07/27/20 04:33 Consult General Surgery Routine 07/27/20 05:32 Burn CD for patient Stat Ordered Studies 07/27/20 01:30 CT abd pelvis IV con only Urgent IMPRESSION: 1. No evidence of bowel obstruction. No evidence of free air 2. Hepatic steatosis and mild hepatomegaly 3. Significant worsening in the patient's pancreatitis. 4. Interval development of a 10 x 7.5 x 5 cm acute pancreatic fluid collection abutting the posterior inferior stomach. No air bubbles are visualized within this collection. Hospital Course (1) Sepsis: Secondary to peripancreatic abscess initial CT read Recent bout of alcoholic pancreatitis Hypomagnesemia, hypokalemia History of nonischemic cardiomyopathy as per records, patient euvolemic Anemia, stool Hemoccult negative Medical telemetry Cultures, Zosyn Replace electrolytes Transfer to [facility] once bed available. DVT prophylaxis. Lovenox subcu Full code Total Time Total Time Spent Total Time Spent (In Minutes): 40 Total Time Includes: Examination of the Patient, Discharge Planning, Medication Reconciliation and Communication With Other Providers Discharge Plan Discharge Items Patient Disposition: Transfer Acute Care Hospital Reason For Visit: SEPSIS Discharge Diagnosis: Sepsis secondary to peripancreatic abscess Electrolyte abnormalities, hypokalemia, hypomagnesemia Activity: Per Instructions section Non-emergency contact: Hospitalist and Specialist Call non-emergency contact if: you have any medication questions and your symptoms worsen Follow-up/Referrals: Peterson Lr MD [Primary Care Provider] - Diet: Clear liquid Addtl Attending Provider Instructions: Dr. Saez ([facility] GI specialist research consultant) contacted regarding peripancreatic abscess as per General Surgery service recommendations. He recommends transfer to [facility] for IR capability given patient sepsis. Patient kindly accepted for transfer by Dr. Ramos of the [facility] hospitalist service pending bed availability. Case also discussed with Dr. Rubio ([facility]) as per Dr. Ramos's request. On route continue IV fluids and IV Zosyn. Pending Studies at Discharge: Yes Studies:: Blood cultures pending Stand-Alone Forms: My [facility] Skilled Items Patient informed of condition?: Yes DNR: No Discharge Level of Care: Other Communicable Disease: No Discharge Prognosis: Other Lines: Peripheral IV Urinary Catheter: No Medications and DC Order Prescriptions: New acetaminophen 325 mg Tablet 325 mg PO Q6H PRN (Reason: pain) 10 Days Qty: 10 RF: 0 Continued thiamine HCl (vitamin B1) [Vitamin B-1] 100 mg Tablet 100 mg PO QAM Qty: 30 RF: 0 folic acid 1 mg Tablet 1 mg PO QAM Qty: 30 RF: 0 calcium carbonate [Tums Extra Strength Smoothies] 300 mg (750 mg) tablet,chewable 600 mg PO TID 30 Days Qty: 180 RF: 0 Discharge Orders: Discharge Order (Routine); Ordered 07/27/20 Ordered By: Paulino Higginbotham Admission Data Admit Date/Time: 07/27/20 05:11 Attending Provider: Paulino Higginbotham Admit Provider: Yanick Chen Primary Care Provider: Peterson Lr Other Providers: Yanick Chen ; Bradley Griffiths ; Fletcher Jiménez ; Jonathan Arellano ; Sanjay Vick Jr ; Bulmaro Corona ; Ilan Redman ; Rylie Dow ; Dirk Calixto ; Don Calhoun
[2020-07-27 12:52] VITALS: PULSE 110
[2020-07-27] MEDS ORDERED: LORazepam 0.5 MG TAB PO STA (13:32)
[2020-07-27 14:39] LABS: BUN Creatinine Ratio 9.2 (10-20); Calcium 7.6 mg/dl (8.5-10.1); Creatinine Clr Calc Pharmacy 132.5 ml/min; Est GFR (African American) 138.5; Est GFR (Non-African American) 119.5; Potassium 3.1 mmol/L (3.5-5.1)
[2020-07-27 14:48] LABS: Albumin Globulin Ratio 0.5 (0.9-2); Bilirubin,Total 0.8 mg/dl (0.2-1); Globulin 4.4 gm/dl (2.5-4.0); Phosphorus 2.1 mg/dl (2.5-4.9); Total Protein 6.4 gm/dl (6.4-8.2)
[2020-07-27] MEDS ORDERED: POTASSIUM PHOS 3 MMOL/1 ML INFUSION IV STA (15:00)
[2020-07-27] MEDS ORDERED: POTASSIUM PHOSPHATE 9 MMOL in SODIUM CHLORIDE 0.9% 250 ML IV ONE (15:30)
== END 2020-07-27 15:45 | disposition short-term general hospital (02) | DRG 871 ==
LOC: ED 23:14 → EDINP 07-27 05:11 → 2W 07-27 12:14

== ENCOUNTER 2020-09-23 10:37 | Inpatient (IN) ==
--- NOTE | 2020-09-23 11:08 | Emergency Department Note ---
Impression & Plan Acute pancreatitis, Lactic acidosis, Elevated LFTs ED Provider Note NAME: CHAD BAUM AGE: 40 SEX: F : 1980 ARRIVES VIA: Walk-In INFORMANT: Patient, ED PROVIDER(S): Preet Hooker MD Chief Complaint: Abdominal pain HPI: Patient does present with worsening abdominal pain. The patient was recently seen on September 09 with a known history of alcohol abuse and pancreatitis. The patient did present with epigastric pain at that time. Patient had been transferred before this time due to concern for a pseudocyst. Patient did have a repeat transfer this time. Patient CT patient at this time had a cystogastrostomy tube in place but had a persistent abscess noted only slightly decreased in size from before. Patient is presenting today with worsening epigastric pain. Patient states that she drank 2 glasses of wine last night and woke up this morning with severe sharp epigastric pain. Patient st ates it is nonradiating. Patient denies any drug use. The patient did have a recent EGD at which point the patient did have a gastrointestinal stent removed and necrocystectomy of her pancreatic cyst. The patient states that her GI physician was Dr. Das. Patient denies any fevers. The patient denies any concerns for Covid in terms of shortness of breath, chest pain. The patient has had nausea with vomiting. The patient denies any blood in the vomit. ROS: See HPI for pertinent positives and negatives. A total of 10 systems were reviewed and otherwise negative. Past medical history: See below Surgical history: See below Social history: See below Physical Exam: GENERAL: Uncomfortable in appearance, wearing a mask. Mild distress. EYE EXAM: Normal conjunctiva. PERRL, no anisocoria and EOM's grossly intact w/o pain. NECK: Supple, no nuchal rigidity, no adenopathy, non-tender. No signs of meningismus. LUNGS: Clear to auscultation. Normal chest wall mechanics. HEART: Tachycardic and regular, no MRG. ABDOMEN: Abdomen soft, upper abdominal discomfort but most discomfort in the epigastrium, no lower abdominal pain. Normo-active bowel sounds, no masses, no rebound or guarding. BACK: No CVA TTP. SKIN: No rashes and no bruising. UPPER EXTREMITIES: Upper extremities are grossly normal. LOWER EXTREMITIES: Grossly normal, no edema. NEURO EXAM: A&O x3, cranial nerves II-XII grossly intact, normal speech, moves all 4 extremities on command w/o issue. Differential diagnoses: Appendicitis, ovarian cyst, ovarian torsion, ectopic , TOA, PID, infections, diverticulitis, UTI, obstruction, mesenteric ischemia, aortic pathology, inflammatory bowel disease, renal colic, PUD, pancreatitis, biliary pathology, hernia, volvulus, constipation, as well as other pathologies. Course: Patient was seen and evaluated the bedside. Full history physical exam was performed. EKG: None Imaging Studies: Radiology results as stated below per my review in the radiologist's i nterpretation: CT OF THE ABDOMEN AND PELVIS WITH CONTRAST CLINICAL HISTORY: h/o panc abscess/pacreatitis, EtOH last night COMPARISON STUDY: CT of the abdomen and pelvis September 08, 2020. TECHNIQUE: Following IV administration of 94 mL of Optiray-320, axial images of the abdomen and pelvis were obtained from the lung bases to the proximal femurs. Images were reviewed in the axial, sagittal, and coronal planes. IV contrast was administered without complication. Automated exposure control was utilized for the study. A dose lowering technique was utilized adhering to the principles of ALARA. CT DOSE: 279.61 mGy.cm FINDINGS: Lung bases are unremarkable. No pneumatosis, free air or portal venous gas is present. Hepatomegaly and severe hepatic steatosis is again noted. There is no biliary ductal dilatation status post cholecystectomy. Pancreatic glandular atrophy is again noted. Peripancreatic infiltration and fluid is again noted. Infiltration and ill-defined soft tissue adjacent to the pancreatic tail has slightly decreased since prior examination. Infiltration adjacent to the duodenum and pancreatic head has slightly increased. A cystgastrostomy tube is in place. The peripancreatic fluid collection drained by the cystgastrostomy tube has decreased in size since CT of September 08, 2020. This collection now measures 8.3 cm in transverse dimension. It previously measured 11.8 cm. Gas within this collection is again noted. The amount of gas is decreased since prior examination. As before, this peripancreatic fluid collection is thick walled. Nodularity within both paracolic gutters is noted. This is likely related to previous episodes of pancreatitis. There is mild wall thickening of the adjacent splenic flexure of the colon. There is no evidence for a bowel obstruction. As before, the splenic vein is narrowed but patent. The main, left and right portal veins are patent. The spleen, adrenal glands and kidneys are unremarkable. There is no hydronephrosis. The appendix is unremarkable. The ovaries are not enlarged. Fat-containing umbilical hernia is present. IMPRESSION: 1. Interval decrease in size of the peripherally enhancing peripancreatic fluid collection since CT of September 08, 2020. Cystgastrostomy tube remains in place. Interval decrease in the amount of gas within this collection. Sterility of this collection cannot be assessed by CT. 2. Infiltration and fluid adjacent to the duodenum and pancreatic head. This could reflect superimposed acute pancreatitis. No new fluid collections. 3. Hepatomegaly and severe hepatic steatosis. 4. Wall thickening of the splenic flexure of the colon adjacent to the peripancreatic fluid collection. This is probably reactive. No bowel obstruction. ACT 112: Negative or not required by law. Electronically signed by: Remi Arizmendi M.D. 09/23/2020 12:19 PM Dictated: 09/23/20 1204Transcribed: 09/23/20 1204 Cardiac monitoring: An order was placed for continuous cardiac monitoring. The monitor shows a rate of 122 with sinus tachycardia rhythm. MDM: Patient did present with worsening abdominal pain. The patient does have a known history of alcoholic induced pancreatitis. Blood work was obtained along with empiric antibiotics, blood and urine cultures lactic acid IV fluids and pain and nausea medication. Patient also did have a CT of the abdomen pelvis. Patient was started on vancomycin and Zosyn. The patient does have white count of 17 which has mildly improved from prior. H&H is normal. Thrombocytosis present at 625. The patient's kidney function is unremarkable with low potassium and magnesium. Initial lactate of 3.7. Patient did receive 2 L of IV fluids. Lipase is 736. Urinalysis does show evidence of blood and possible infection but the patient did receive broad-spectrum antibiotics. Patient CT showed interval decrease in size of her prior fluid collection. Given this with her associated symptoms I did speak with gastroenterology at [facility] in [place]. I did speak with Dr. Rubio. She stated that given the patient's history physical exam and decreasing size of her fluid collection she stated that she recommended conservative management and would not require an immediate EGD at this time. She is amenable to accepting the patient as a transfer if there is a change in the patient's circumstance i.e. fever, worsening pain or repeat scan that would show that there is an evolving size of her fluid collection. I did speak the on-call hospitalist Dr. Higginbotham and conveyed all of these findings in addition to what I did discuss with Dr. Rubio. The patient was admitted to the medicine service. Past Med/Surg History Medical History Alcohol abuse Anxiety History of narcotic addiction Hypertension Migraine Nonischemic cardiomyopathy Pancreatic necrosis Pancreatic pseudocyst Pancreatitis Surgical History H/O esophagogastroduodenoscopy Endoscopic US hx of endoscopic necrosectomy 08/2020 History of dental surgery History of laparoscopic cholecystectomy Family History Grandfather (Paternal) Diabetes Grandmother (Maternal) Diabetes Social History Smoking Status: Never smoker Second Hand Exposure: No; Hx Alcohol Use: Yes Alcohol type: wine Alcohol type Comment: and pt split 1 pint of liquor/week Alcohol Intake Frequency: 4 or More x per/Week Alcohol Intake Frequency Comment: 2-3 alcoholic beverages approx q. other day Hx Substance Use: No Preferred Language: Hebrew Communication Ability: Effective Aviation Neuropsychologist Required: No Beliefs That Will Affect Care: None marital status: Current Living Situation: Spouse How many Children do You have: 5 Other Information That Helps Us Care for You: No Feels Safe at Home: Yes Safety Concerns: Feels Safe At This Time Assistive Devices: Contacts, Denture - Upper and Glasses Allergies Allergies Allergy/AdvReac Type Severity Reaction Status Date / Time tramadol AdvReac Severe SEIZURES Verified 09/23/20 11:38 gabapentin AdvReac Hallucinati Verified 09/23/20 11:38 ng ketorolac [From Toradol] AdvReac Unknown Verified 09/23/20 11:38 Home Meds Home Medications Medication Instructions Recorded Confirmed acetaminophen [Tylenol Extra 1,000 mg PO Q6H PRN 08/22/20 09/23/20 Strength] calcium carbonate [Tums Extra 2 tab PO TID 08/22/20 09/23/20 Strength Smoothies] magnesium 250 mg PO QAM 08/22/20 09/23/20 multivitamin 1 tab PO QAM 08/22/20 09/23/20 Previous Rx's Medication Instructions Recorded thiamine HCl (vitamin B1) [Vitamin 100 mg PO QAM #30 tab 06/14/20 B-1] Results & Data (ED) Vital Signs Vital Signs - 24 hr 09/23/20 10:51 09/23/20 13:05 Temperature 36.9 C Temperature Source Temporal Artery Scan Pulse Rate 146 H Pulse Rate [Left Finger] 103 H Respiratory Rate 20 15 Blood Pressure 123/84 Blood Pressure [Left Arm] 125/88 Blood Pressure Mean 97 Blood Pressure Mean [Left Arm] 100 Pulse Oximetry 98 98 Oxygen Delivery Method Room Air Sepsis Recent Fever Within 48 Hours No Sepsis New/Unexplained Change in Mental Status No Sepsis Action Taken by Nursing No Action Required Home Medications Current Medication List: was personally reviewed by me Laboratory Data Attestation: I reviewed the patient's lab results. Result diagrams: 09/23/20 11:00 09/23/20 11:00 Lab Results 09/23/20 09/23/20 09/23/20 Range/Units 11:00 11:00 11:00 WBC 17.50 H (4.8-10.8) K/uL RBC 4.50 (4.2-5.4) M/uL Hgb 14.8 (12.0-16.0) g/dL POC Hgb (12.0-16.0) g/dl Hct 44.4 (37-47) % POC Hct (37-47) % MCV 98.7 (80-100) fL MCH 32.9 (25-34) pg MCHC 33.3 (32-36) g/dL RDW Std Deviation 55.9 H (36.4-46.3) fL RDW Coeff of Hanna 15.6 H (11.5-14.5) % Plt Count 625 H (130-400) K/uL MPV 9.2 (7.4-10.4) fL Immature Gran % (Auto) 0.2 % Neut % (Auto) 85.8 % Lymph % (Auto) 9.5 % Mcnairy % (Auto) 4.2 % Eos % (Auto) 0.1 % Baso % (Auto) 0.2 % Neut # (Auto) 15.03 H (1.4-6.5) K/uL Lymph # (Auto) 1.66 (1.2-3.4) K/uL Mcnairy # (Auto) 0.73 H (0.11-0.59) K/uL Eos # (Auto) 0.01 (0-0.5) K/uL Baso # (Auto) 0.03 (0-0.2) K/uL Immature Gran # (Auto) 0.04 H (0.00-0.02) K/uL PT (9.0-12.0) Seconds INR (0.9-1.1) POC Sodium (135-144) mmol/L Sodium 134 L (136-145) mmol/L POC Potassium (3.3-5.0) mmol/L Potassium 2.9 L (3.5-5.1) mmol/L POC Chloride (101-112) mmol/L Chloride 91 L (98-107) mmol/L Carbon Dioxide 32 (21-32) mmol/L POC Total CO2 (24-31) mmol/L Anion Gap 11.0 (3-11) POC Anion Gap (16-25) mmol/L POC BUN (7-18) mg/dl BUN 4 L (7-18) mg/dl Creatinine 0.85 (0.6-1.2) mg/dl POC Creatinine (0.6-1.3) mg/dl Est Cr Clr Drug Dosing 72.0 ml/min Est GFR ( Amer) 98.6 Est GFR (Non-Af Amer) 85.1 BUN/Creatinine Ratio 4.4 L (10-20) Glucose 153 H (70-99) mg/dl POC Glucose (other) (70-99) mg/dl Lactate (0.4-2.0) mmol/L Calcium 9.6 (8.5-10.1) mg/dl POC Ioniz Calcium Cony (1.12-1.32) mmol/l Phosphorus (2.5-4.9) mg/dl Magnesium (1.8-2.4) mg/dl Total Bilirubin 0.9 (0.2-1) mg/dl AST 128 H (15-37) U/L ALT 60 (12-78) U/L Alkaline Phosphatase 377 H (45-117) U/L Total Protein 9.2 H (6.4-8.2) gm/dl Albumin 3.2 L (3.4-5.0) gm/dl Globulin 6.0 H (2.5-4.0) gm/dl Albumin/Globulin Ratio 0.5 L (0.9-2) Lipase 736 H (73-393) U/L Urine Color [place] Urine Appearance Cloudy A (Clear) Urine pH 5.5 (4.5-7.5) Ur Specific Wells 1.027 (1.000-1.030) Urine Protein 1+ H (Negative) Urine Glucose (UA) Trace H (Negative) Urine Ketones Trace H (Negative) Urine Blood Trace H (Negative) Urine Nitrite Positive A (Negative) Urine Bilirubin Negative (Negative) Urine Urobilinogen Negative (Negative) Ur Leukocyte Esterase Trace H (Negative) Urine WBC (Auto) 1-5 (0-5) /hpf Urine RBC (Auto) 5-10 H (0-4) /hpf U Hyaline Cast (Auto) 10-30 H (0-5) /lpf U Epithel Cells (Auto) >30 H (0-5) /lpf Urine Bacteria (Auto) Negative (Negative) Urine Mucus Present A (None Prsent) Urine Test (Negative) 09/23/20 09/23/20 09/23/20 Range/Units 11:00 11:00 11:00 WBC (4.8-10.8) K/uL RBC (4.2-5.4) M/uL Hgb (12.0-16.0) g/dL POC Hgb (12.0-16.0) g/dl Hct (37-47) % POC Hct (37-47) % MCV (80-100) fL MCH (25-34) pg MCHC (32-36) g/dL RDW Std Deviation (36.4-46.3) fL RDW Coeff of Hanna (11.5-14.5) % Plt Count (130-400) K/uL MPV (7.4-10.4) fL Immature Gran % (Auto) % Neut % (Auto) % Lymph % (Auto) % Mcnairy % (Auto) % Eos % (Auto) % Baso % (Auto) % Neut # (Auto) (1.4-6.5) K/uL Lymph # (Auto) (1.2-3.4) K/uL Mcnairy # (Auto) (0.11-0.59) K/uL Eos # (Auto) (0-0.5) K/uL Baso # (Auto) (0-0.2) K/uL Immature Gran # (Auto) (0.00-0.02) K/uL PT 11.6 (9.0-12.0) Seconds INR 1.1 (0.9-1.1) POC Sodium (135-144) mmol/L Sodium (136-145) mmol/L POC Potassium (3.3-5.0) mmol/L Potassium (3.5-5.1) mmol/L POC Chloride (101-112) mmol/L Chloride (98-107) mmol/L Carbon Dioxide (21-32) mmol/L POC Total CO2 (24-31) mmol/L Anion Gap (3-11) POC Anion Gap (16-25) mmol/L POC BUN (7-18) mg/dl BUN (7-18) mg/dl Creatinine (0.6-1.2) mg/dl POC Creatinine (0.6-1.3) mg/dl Est Cr Clr Drug Dosing ml/min Est GFR ( Amer) Est GFR (Non-Af Amer) BUN/Creatinine Ratio (10-20) Glucose (70-99) mg/dl POC Glucose (other) (70-99) mg/dl Lactate (0.4-2.0) mmol/L Calcium (8.5-10.1) mg/dl POC Ioniz Calcium Cony (1.12-1.32) mmol/l Phosphorus 4.9 (2.5-4.9) mg/dl Magnesium 1.6 L (1.8-2.4) mg/dl Total Bilirubin (0.2-1) mg/dl AST (15-37) U/L ALT (12-78) U/L Alkaline Phosphatase (45-117) U/L Total Protein (6.4-8.2) gm/dl Albumin (3.4-5.0) gm/dl Globulin (2.5-4.0) gm/dl Albumin/Globulin Ratio (0.9-2) Lipase (73-393) U/L Urine Color Urine Appearance (Clear) Urine pH (4.5-7.5) Ur Specific Wells (1.000-1.030) Urine Protein (Negative) Urine Glucose (UA) (Negative) Urine Ketones (Negative) Urine Blood (Negative) Urine Nitrite (Negative) Urine Bilirubin (Negative) Urine Urobilinogen (Negative) Ur Leukocyte Esterase (Negative) Urine WBC (Auto) (0-5) /hpf Urine RBC (Auto) (0-4) /hpf U Hyaline Cast (Auto) (0-5) /lpf U Epithel Cells (Auto) (0-5) /lpf Urine Bacteria (Auto) (Negative) Urine Mucus (None Prsent) Urine Test Negative (Negative) 09/23/20 09/23/20 Range/Units 11:30 11:36 WBC (4.8-10.8) K/uL RBC (4.2-5.4) M/uL Hgb (12.0-16.0) g/dL POC Hgb 14.3 (12.0-16.0) g/dl Hct (37-47) % POC Hct 42 (37-47) % MCV (80-100) fL MCH (25-34) pg MCHC (32-36) g/dL RDW Std Deviation (36.4-46.3) fL RDW Coeff of Hanna (11.5-14.5) % Plt Count (130-400) K/uL MPV (7.4-10.4) fL Immature Gran % (Auto) % Neut % (Auto) % Lymph % (Auto) % Mcnairy % (Auto) % Eos % (Auto) % Baso % (Auto) % Neut # (Auto) (1.4-6.5) K/uL Lymph # (Auto) (1.2-3.4) K/uL Mcnairy # (Auto) (0.11-0.59) K/uL Eos # (Auto) (0-0.5) K/uL Baso # (Auto) (0-0.2) K/uL Immature Gran # (Auto) (0.00-0.02) K/uL PT (9.0-12.0) Seconds INR (0.9-1.1) POC Sodium 136 (135-144) mmol/L Sodium (136-145) mmol/L POC Potassium 3.4 (3.3-5.0) mmol/L Potassium (3.5-5.1) mmol/L POC Chloride 92 L (101-112) mmol/L Chloride (98-107) mmol/L Carbon Dioxide (21-32) mmol/L POC Total CO2 32 H (24-31) mmol/L Anion Gap (3-11) POC Anion Gap 16.0 (16-25) mmol/L POC BUN < 3 L (7-18) mg/dl BUN (7-18) mg/dl Creatinine (0.6-1.2) mg/dl POC Creatinine 0.5 L (0.6-1.3) mg/dl Est Cr Clr Drug Dosing ml/min Est GFR ( Amer) Est GFR (Non-Af Amer) BUN/Creatinine Ratio (10-20) Glucose (70-99) mg/dl POC Glucose (other) 149 H (70-99) mg/dl Lactate 3.7 H* (0.4-2.0) mmol/L Calcium (8.5-10.1) mg/dl POC Ioniz Calcium Cony 1.06 L (1.12-1.32) mmol/l Phosphorus (2.5-4.9) mg/dl Magnesium (1.8-2.4) mg/dl Total Bilirubin (0.2-1) mg/dl AST (15-37) U/L ALT (12-78) U/L Alkaline Phosphatase (45-117) U/L Total Protein (6.4-8.2) gm/dl Albumin (3.4-5.0) gm/dl Globulin (2.5-4.0) gm/dl Albumin/Globulin Ratio (0.9-2) Lipase (73-393) U/L Urine Color Urine Appearance (Clear) Urine pH (4.5-7.5) Ur Specific Wells (1.000-1.030) Urine Protein (Negative) Urine Glucose (UA) (Negative) Urine Ketones (Negative) Urine Blood (Negative) Urine Nitrite (Negative) Urine Bilirubin (Negative) Urine Urobilinogen (Negative) Ur Leukocyte Esterase (Negative) Urine WBC (Auto) (0-5) /hpf Urine RBC (Auto) (0-4) /hpf U Hyaline Cast (Auto) (0-5) /lpf U Epithel Cells (Auto) (0-5) /lpf Urine Bacteria (Auto) (Negative) Urine Mucus (None Prsent) Urine Test (Negative) Administered Medications Hydromorphone HCl (Hydromorphone Inj 0.5 Mg/0.5 Ml Syr) 0.5 mg IV Q2H PRN PRN Reason: Pain Stop: 10/07/20 14:24 Last Admin: 09/23/20 16:23 Dose: 0.5 mg Documented by: [id number] Discontinued Medications Fentanyl Citrate (Fentanyl Citrate 100 Mcg/2 Ml Vial) 50 mcg IV Q1H DONOVAN Stop: 10/07/20 11:29 Last Admin: 09/23/20 14:27 Dose: 50 mcg Documented by: [id number] Admin: 09/23/20 13:03 Dose: 50 mcg Documented by: [id number] Admin: 09/23/20 11:46 Dose: 50 mcg Documented by: [id number] Sodium Chloride (Nss 1000ml) 2,000 mls @ 999 mls/hr IV .Q2H1M ONE Stop: 09/23/20 13:19 Last Infusion: 09/23/20 13:33 Dose: 0 mls/hr Documented by: [id number] Admin: 09/23/20 11:46 Dose: 999 mls/hr Documented by: [id number] Piperacillin Sod/Tazobactam Sod (Zosyn) 4.5 gm in 120 mls @ 240 mls/hr IV NOW O NE Stop: 09/23/20 11:49 Last Infusion: 09/23/20 12:35 Dose: 0 mls/hr Documented by: [id number] Admin: 09/23/20 12:05 Dose: 240 mls/hr Documented by: [id number] Vancomycin HCl 1,500 mg/ (Sodium Chloride) 530 mls @ 200 mls/hr IV NOW ONE Stop: 09/23/20 13:58 Last Admin: 09/23/20 13:02 Dose: 200 mls/hr Documented by: [id number] Ioversol (Ioversol 100ml) 94 ml IV ONCE ONE Stop: 09/23/20 11:59 Last Admin: 09/23/20 11:58 Dose: 94 ml Documented by: [id number] Ondansetron HCl (Ondansetron Inj 2 Mg/Ml 2 Ml Vial) 4 mg IV NOW STA Stop: 09/23/20 11:20 Last Admin: 09/23/20 11:46 Dose: 4 mg Documented by: [id number] Ondansetron HCl (Ondansetron Inj 2 Mg/Ml 2 Ml Vial) 4 mg IV NOW STA Stop: 09/23/20 12:55 Last Admin: 09/23/20 14:20 Dose: 4 mg Documented by: [id number] Discharge Plan Visit Data Chief Complaint: Abdominal Pain Stated Complaint: PANCREATITIS FLARE UP ED Provider: Preet Hooker Discharge Problem: Acute pancreatitis, Lactic acidosis, Elevated LFTs Patient Disposition: Admitted As Inpatient Discharge Instructions Interventions: ED Discharge Assessment Last Done: 09/23/20 16:00 Discharge Problem: Acute pancreatitis Qualifiers: Pancreatitis type: alcohol induced Acute pancreatitis complication: unspecified Qualified Code(s): K85.20 - Alcohol induced acute pancreatitis without necrosis or infection
[2020-09-23] MEDS ORDERED: ONDANSETRON INJ 2 MG/ML 2 ML VIAL IV STA ×2 (11:19→12:54)
[2020-09-23] MEDS ORDERED: SODIUM CHLORIDE 0.9% 1000ML 2,000 ML IV ONE (11:19)
[2020-09-23] MEDS ORDERED: VANCOMYCIN HCL 1,500 MG in SODIUM CHLORIDE 0.9% 500 ML IV ONE (11:20)
[2020-09-23] MEDS ORDERED: PIPERACILLIN/TAZOBACTAM 4.5 GM/120 ML BAG IV ONE (11:20)
[2020-09-23] MEDS ORDERED: PIPERACILL/TAZOBAC CONSULT ACTIVE PRN ×3 (11:20→16:19)
[2020-09-23] MEDS ORDERED: VANCOMYCIN CONSULT ACTIVE PRN ×2 (11:20→16:09)
[2020-09-23] MEDS: fentaNYL citrate 100 MCG/2 ML VIAL IV SCH ×5 (11:46→18:58)
[2020-09-23 11:48] LABS: iSTAT Blood Urea Nitrogen < 3 mg/dl (7-18); iSTAT Carbon Dioxide 32 mmol/L (24-31); iSTAT Chloride 92 mmol/L (101-112); iSTAT Creatinine 0.5 mg/dl (0.6-1.3); iSTAT Glucose 149 mg/dl (70-99); iSTAT Hematocrit 42 % (37-47); iSTAT Hemoglobin 14.3 g/dl (12.0-16.0); iSTAT Ionized Calcium 1.06 mmol/l (1.12-1.32); iSTAT Potassium 3.4 mmol/L (3.3-5.0); iSTAT Sodium 136 mmol/L (135-144)
[2020-09-23 11:48] LABS: Pregnancy Test, Urine Negative (Negative)
[2020-09-23 11:51] LABS: Appearance Urine Cloudy (Clear); Bacteria Urine Automated Negative (Negative); Blood Urine Trace (Negative); Color Urine Orange; Epithelial Cell Urine Auto >30 /lpf (0-5); Glucose Urine UA Trace (Negative); Ketones Urine Trace (Negative); Leukocyte Esterase Urine Trace (Negative); Nitrite Urine Positive (Negative); Protein Urine 1+ (Negative); Specific Gravity Urine 1.027 (1.000-1.030); Urobilinogen Urine Negative (Negative); pH Urine 5.5 (4.5-7.5)
[2020-09-23 11:53] LABS: Basophils # (auto) 0.03 K/uL (0-0.2); Basophils % (auto) 0.2 %; Eosinophils # (auto) 0.01 K/uL (0-0.5); Eosinophils % (auto) 0.1 %; Hematocrit (blood only) 44.4 % (37-47); Hemoglobin 14.8 g/dL (12.0-16.0); Immature Granulocytes # (auto) 0.04 K/uL (0.00-0.02); Immature Granulocytes % (auto) 0.2 %; Lymphocytes # (auto) 1.66 K/uL (1.2-3.4); Lymphocytes % (auto) 9.5 %; Mean Corpuscular Hemoglobin 32.9 pg (25-34); Mean Corpuscular Hgb Conc 33.3 g/dL (32-36); Mean Corpuscular Volume 98.7 fL (80-100); Mean Platelet Volume 9.2 fL (7.4-10.4); Monocytes # (auto) 0.73 K/uL (0.11-0.59); Monocytes % (auto) 4.2 %; Neutrophils # (auto) 15.03 K/uL (1.4-6.5); Neutrophils % (auto) 85.8 %; Platelet Count 625 K/uL (130-400); RDW Coefficient of Variation 15.6 % (11.5-14.5); RDW Standard Deviation 55.9 fL (36.4-46.3)
[2020-09-23 11:54] LABS: Albumin Level 3.2 gm/dl (3.4-5.0); BUN Creatinine Ratio 4.4 (10-20); Calcium 9.6 mg/dl (8.5-10.1); Est GFR (African American) 98.6; Est GFR (Non-African American) 85.1; Potassium 2.9 mmol/L (3.5-5.1)
[2020-09-23 11:57] LABS: Albumin Globulin Ratio 0.5 (0.9-2); Bilirubin,Total 0.9 mg/dl (0.2-1); Total Protein 9.2 gm/dl (6.4-8.2)
[2020-09-23] MEDS ORDERED: IOVERSOL 100ml IV ONE (11:58)
[2020-09-23 12:06] LABS: Bilirubin Urine Negative (Negative); Ictotest Urine Negative (Negative)
[2020-09-23 12:15] LABS: Mucus Urine Present (None Prsent)
--- NOTE | 2020-09-23 12:20 | CT Scan Report ---
CT OF THE ABDOMEN AND PELVIS WITH CONTRAST CLINICAL HISTORY: h/o panc abscess/pacreatitis, EtOH last night COMPARISON STUDY: CT of the abdomen and pelvis September 08, 2020. TECHNIQUE: Following IV administration of 94 mL of Optiray-320, axial images of the abdomen and pelvi s were obtained from the lung bases to the proximal femurs. Images were reviewed in the axial, sagitt al, and coronal planes. IV contrast was administered without complication. Automated exposure contro l was utilized for the study. A dose lowering technique was utilized adhering to the principles of A CATA. CT DOSE: 279.61 mGy.cm FINDINGS: Lung bases are unremarkable. No pneumatosis, free air or portal venous gas is present. Hepa tomegaly and severe hepatic steatosis is again noted. There is no biliary ductal dilatation status po st cholecystectomy. Pancreatic glandular atrophy is again noted. Peripancreatic infiltration and flui d is again noted. Infiltration and ill-defined soft tissue adjacent to the pancreatic tail has slight ly decreased since prior examination. Infiltration adjacent to the duodenum and pancreatic head has s lightly increased. A cystgastrostomy tube is in place. The peripancreatic fluid collection drained by the cystgastrostomy tube has decreased in size since CT of September 08, 2020. This collection now me asures 8.3 cm in transverse dimension. It previously measured 11.8 cm. Gas within this collection is again noted. The amount of gas is decreased since prior examination. As before, this peripancreatic f luid collection is thick walled. Nodularity within both paracolic gutters is noted. This is likely re lated to previous episodes of pancreatitis. There is mild wall thickening of the adjacent splenic fle xure of the colon. There is no evidence for a bowel obstruction. As before, the splenic vein is narro wed but patent. The main, left and right portal veins are patent. The spleen, adrenal glands and kidn eys are unremarkable. There is no hydronephrosis. The appendix is unremarkable. The ovaries are not e nlarged. Fat-containing umbilical hernia is present. IMPRESSION: 1. Interval decrease in size of the peripherally enhancing peripancreatic fluid collection since CT o f September 08, 2020. Cystgastrostomy tube remains in place. Interval decrease in the amount of gas wi thin this collection. Sterility of this collection cannot be assessed by CT. 2. Infiltration and fluid adjacent to the duodenum and pancreatic head. This could reflect superimpos ed acute pancreatitis. No new fluid collections. 3. Hepatomegaly and severe hepatic steatosis. 4. Wall thickening of the splenic flexure of the colon adjacent to the peripancreatic fluid collectio n. This is probably reactive. No bowel obstruction. ACT 112: Negative or not required by law. Electronically signed by: Remi Arizmendi M.D. 09/23/2020 12:19 PM
[2020-09-23] MEDS ORDERED: POLYETHYLENE (MIRALAX) 17 GM PACK PO PRN (13:22)
[2020-09-23 13:46] LABS: INR 1.1 (0.9-1.1); Prothrombin Time 11.6 Seconds (9.0-12.0)
[2020-09-23 13:55] LABS: Magnesium 1.6 mg/dl (1.8-2.4); Phosphorus 4.9 mg/dl (2.5-4.9)
--- NOTE | 2020-09-23 14:22 | History & Physical Report ---
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 WBC elevated at 17,000, patient recently underwent endoscopic pancreatic necrosectomy (08/2020) Patient has been on oral antibiotics after discharge from [facility] in [place], on September 12, reports no fevers or chills Started empirically on antibiotics in the ED, IV Zosyn and vancomycin, will continue Blood cultures obtained, pending Abdominal pain, and leukocytosis likely secondary to acute pancreatitis, however infectious etiology at this point cannot be ruled out Continue IV fluids, LR N.p.o., pain management Routine GI consult AST elevated at 128, ALT normal, 60, alk phos 377, lipase 736 Continue monitor CMP As discussed in detail in HPI, patient has history of several admissions to [facility], and if need arises again, may need to be transferred again (5) Hypokalemia: -in the setting of poor oral intake and etoh use -replace and monitor (6) Hypomagnesemia: - in the setting of poor oral intake and etoh use - replace and monitor (7) Lactic acidosis: lactate 3.7, will re-check after IVF likely secondary to dehydration in the setting of acute pancreatitis however infectious process can not be excluded at this time (8) Tachycardia: -in the setting of acute pancreatitis, pain, poss. etoh withdrawal, electrolyte abnormalities -will treat underlying condition -cont. to closely monitor on tele (9) Alcohol abuse: pt reports abstinence from alcohol until yesterday IV thiamine, IV folic acid monitor for alcohol withdrawal symptoms prn IV ativan DVT ppx: SCDs, heparin subq Code: Full History of Present Illness Chief Complaint: Abdominal pain, pancreatitis, hx of pancreatic necrosis Primary Care Provider: Peterson Lr MD Mrs. 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 Significant med. history, patient was admitted to [facility] in [place], from July 27 to July 30 with concern for a peripancreatic fluid collection, 11 x 8 x 5 cm with mass-effect on the stomach and with peripancreatic stranding. Was treated with antibiotics and IV fluids and improved. GI was consulted at that time, and suspected that collection was more likely a walled off necrosis versus pseudocyst, not mature enough to be drained. She was again admitted to [facility] from August 23 to August 25 and underwent an EGD and EUS with placement of cystogastrostomy stent. On endoscopic evaluation, the fluid collection appeared to be a pseudocyst as opposed to walled off necrosis or abscess. Most recently patient was admitted to [facility] between September 08 and September 12, 2020. At that time, white blood cell count was elevated at 16,[address] scan of abdomen and pelvis done at [facility], on September 08, 2020 was suspicious for peripancreatic abscesses. Patient was treated with IV broad-spectrum antibiotics, she was transferred from [facility] ED. On presentation patient's heart rate was around 140-150s, sinus tachycardia on EKG, thought to be secondary to sepsis from intra-abdominal abscesses versus alcohol withdrawal given positive alcohol level. Patient subsequently underwent upper GI endoscopy and endoscopic necrosectomy was done. During endoscopic ultrasound, axion metal stent was found on the posterior wall of the stomach. The stent was clogged. The cyst was partially filled with fluid and black necrotic tissue that was pasty and adherent to the cyst wall. Necrosectomy was performed. At the conclusion of the procedure, a small amount of necrotic tissue was found within the pseudocyst on direct vision. The examined duodenum was normal. GI recommended to repeat upper endoscopy in 2 weeks. Also recommended antibiotics, Augmentin and Cipro for 7 days after discharge. Cipro was switched to cefixime due to prolonged QT interval. Patient reports that she has been taking antibiotics as prescribed. She has been doing well at home unfortunately though yesterday she was drinking alcohol again with her . She then became sick, vomited last night. She reports poor appetite, severe abdominal discomfort. Denies any fevers chills, chest pain shortness of breath, cough. Patient reports normal bowel movements, no blood in the stool. No hematemesis. No dysuria or blood in the urine. In the ED today, WBC was found elevated at 17,500, lactic acid elevated at 3.7. Chemistry significant for low potassium of 2.9, magnesium 1.6. Lipase elevated at 736. CT of the abdomen pelvis was performed, showed interval decrease in size of the peripherally enhancing peripancreatic fluid collection since September 08. Cystgastrostomy tube remains in place. Interval decrease in the amount of gas within this collection. Sterility of this collection cannot be assessed by CT. ED provider discussed the case with GI physician on-call in [place], at [facility], Dr. Rubio. It was recommended that at this time patient may stay at [facility], and be treated for pancreatitis, at this point they would not proceed with any procedures. If of course patient's clinical status worsens, will consider transfer again. Allergies Allergy/AdvReac Type Severity Reaction Status Date / Time tramadol AdvReac Severe SEIZURES Verified 09/23/20 11:38 gabapentin AdvReac Hallucinati Verified 09/23/20 11:38 ng ketorolac [From Toradol] AdvReac Unknown Verified 09/23/20 11:38 Home Medications Medication Instructions Recorded Confirmed Type thiamine HCl (vitamin B1) [Vitamin 100 mg PO QAM #30 tab 06/14/20 09/23/20 Rx B-1] acetaminophen [Tylenol Extra 1,000 mg PO Q6H PRN 08/22/20 09/23/20 History Strength] calcium carbonate [Tums Extra 2 tab PO TID 08/22/20 09/23/20 History Strength Smoothies] magnesium 250 mg PO QAM 08/22/20 09/23/20 History multivitamin 1 tab PO QAM 08/22/20 09/23/20 History Past Med/Surg History Medical History (Updated 09/23/20 @ 14:19 by Paulino Higginbotham MD) Alcohol abuse Anxiety History of narcotic addiction Hypertension Migraine Nonischemic cardiomyopathy Pancreatic necrosis Pancreatic pseudocyst Pancreatitis Surgical History (Updated 09/23/20 @ 14:21 by Paulino Higginbotham MD) H/O esophagogastroduodenoscopy Endoscopic US hx of endoscopic necrosectomy 08/2020 History of dental surgery History of laparoscopic cholecystectomy Family History Grandfather (Paternal) Diabetes Grandmother (Maternal) Diabetes Social History Smoking Status: Never smoker Second Hand Exposure: No; Hx Alcohol Use: Yes Alcohol type: wine Alcohol type Comment: and pt split 1 pint of liquor/week Alcohol Intake Frequency: 4 or More x per/Week Alcohol Intake Frequency Comment: 2-3 alcoholic beverages approx q. other day Hx Substance Use: No Preferred Language: Yi Communication Ability: Effective Liquor Blender Required: No Beliefs That Will Affect Care: None marital status: Current Living Situation: Spouse How many Children do You have: 5 Other Information That Helps Us Care for You: No Feels Safe at Home: Yes Safety Concerns: Feels Safe At This Time Assistive Devices: Contacts, Denture - Upper and Glasses Review of Systems Review of Systems: All systems reviewed & are unremarkable except as noted in HPI & below Constitutional: no fever and no chills Eyes: no problem reported Ear, Nose, Mouth, Throat: no problem reported Respiratory: no cough and no dyspnea Cardiovascular: no chest pain, no palpitations and no edema Gastrointestinal: + abdominal pain, + nausea and + vomiting; no change in bowel habits Genitourinary: no dysuria Musculoskeletal: no problem reported Integumentary: no problem reported Neurologic: no problem reported Psychiatric: no problem reported Endocrine: no problem reported Hematologic / Lymphatic: no problem reported Allergy / Immunological: no problem reported Physical Exam Constitutional: WD/WN, vitals as above no acute distress Eyes: PERRL, conjunctivae normal, anicteric sclerae ENMT: external ear and nose normal, oropharynx normal Neck: normal visual inspection; no neck crepitus and neck nontender Respiratory: normal respiratory effort, lungs clear to auscultation Auscultation: no crackles, no rales, no rhonchi and no wheezes Cardiovascular: RRR, no murmur, no edema Chest (Breasts): normal inspection/palpation of breasts Gastrointestinal (Abdomen): Inspection/Auscultation: abdomen normal to inspection and normal bowel sounds; abdomen not distended and no abdominal edema Percussion/Palpation: + abdomen tender (epigastric region) and abdomen soft; abdomen not rigid Musculoskeletal: no cyanosis or clubbing, extremities motor strength 5/5 Head/Neck/Chest: normocephalic and head atraumatic Skin: no rashes, warm and dry Neurologic: PERRL, EOMI, accommodation nl, no face palsy, no dysarthria moves all extremities and awake Psychiatric: A+Ox3, euthymic affect Genitourinary: no CVA tenderness Lymphatic: no lymphedema Results & Data Results & Data ([facility]) Vital Signs (Past 12 Hours) Vital Signs Temp Pulse Pulse Resp BP BP Pulse Ox 09/23/20 13:05 103 H 15 125/88 98 09/23/20 10:51 36.9 C 146 H 20 123/84 98 Laboratory Results 09/23/20 09/23/20 09/23/20 Range/Units Unknown 11:36 11:30 WBC (4.8-10.8) K/uL RBC (4.2-5.4) M/uL Hgb (12.0-16.0) g/dL POC Hgb 14.3 (12.0-16.0) g/dl Hct (37-47) % POC Hct 42 (37-47) % MCV (80-100) fL MCH (25-34) pg MCHC (32-36) g/dL RDW Std Deviation (36.4-46.3) fL RDW Coeff of Hanna (11.5-14.5) % Plt Count (130-400) K/uL MPV (7.4-10.4) fL Immature Gran % (Auto) % Neut % (Auto) % Lymph % (Auto) % Pike % (Auto) % Eos % (Auto) % Baso % (Auto) % Neut # (Auto) (1.4-6.5) K/uL Lymph # (Auto) (1.2-3.4) K/uL Pike # (Auto) (0.11-0.59) K/uL Eos # (Auto) (0-0.5) K/uL Baso # (Auto) (0-0.2) K/uL Immature Gran # (Auto) (0.00-0.02) K/uL PT (9.0-12.0) Seconds INR (0.9-1.1) POC Sodium 136 (135-144) mmol/L Sodium (136-145) mmol/L POC Potassium 3.4 (3.3-5.0) mmol/L Potassium (3.5-5.1) mmol/L POC Chloride 92 L (101-112) mmol/L Chloride (98-107) mmol/L Carbon Dioxide (21-32) mmol/L POC Total CO2 32 H (24-31) mmol/L Anion Gap (3-11) POC Anion Gap 16.0 (16-25) mmol/L POC BUN < 3 L (7-18) mg/dl BUN (7-18) mg/dl Creatinine (0.6-1.2) mg/dl POC Creatinine 0.5 L (0.6-1.3) mg/dl Est Cr Clr Drug Dosing ml/min Est GFR ( Amer) Est GFR (Non-Af Amer) BUN/Creatinine Ratio (10-20) Glucose (70-99) mg/dl POC Glucose (other) 149 H (70-99) mg/dl Lactate 3.7 H* (0.4-2.0) mmol/L Calcium (8.5-10.1) mg/dl POC Ioniz Calcium Cony 1.06 L (1.12-1.32) mmol/l Phosphorus (2.5-4.9) mg/dl Magnesium (1.8-2.4) mg/dl Total Bilirubin (0.2-1) mg/dl AST (15-37) U/L ALT (12-78) U/L Alkaline Phosphatase (45-117) U/L Total Protein (6.4-8.2) gm/dl Albumin (3.4-5.0) gm/dl Globulin (2.5-4.0) gm/dl Albumin/Globulin Ratio (0.9-2) Lipase (73-393) U/L Urine Color Urine Appearance (Clear) Urine pH (4.5-7.5) Ur Specific Corona (1.000-1.030) Urine Protein (Negative) Urine Glucose (UA) (Negative) Urine Ketones (Negative) Urine Blood (Negative) Urine Nitrite (Negative) Urine Bilirubin (Negative) Urine Urobilinogen (Negative) Ur Leukocyte Esterase (Negative) Urine WBC (Auto) (0-5) /hpf Urine RBC (Auto) (0-4) /hpf U Hyaline Cast (Auto) (0-5) /lpf U Epithel Cells (Auto) (0-5) /lpf Urine Bacteria (Auto) (Negative) Urine Mucus (None Prsent) Urine Test (Negative) SARS-CoV-2 Ag (Rapid) Negative (Negative) 09/23/20 09/23/20 09/23/20 Range/Units 11:00 11:00 11:00 WBC (4.8-10.8) K/uL RBC (4.2-5.4) M/uL Hgb (12.0-16.0) g/dL POC Hgb (12.0-16.0) g/dl Hct (37-47) % POC Hct (37-47) % MCV (80-100) fL MCH (25-34) pg MCHC (32-36) g/dL RDW Std Deviation (36.4-46.3) fL RDW Coeff of Hanna (11.5-14.5) % Plt Count (130-400) K/uL MPV (7.4-10.4) fL Immature Gran % (Auto) % Neut % (Auto) % Lymph % (Auto) % Pike % (Auto) % Eos % (Auto) % Baso % (Auto) % Neut # (Auto) (1.4-6.5) K/uL Lymph # (Auto) (1.2-3.4) K/uL Pike # (Auto) (0.11-0.59) K/uL Eos # (Auto) (0-0.5) K/uL Baso # (Auto) (0-0.2) K/uL Immature Gran # (Auto) (0.00-0.02) K/uL PT 11.6 (9.0-12.0) Seconds INR 1.1 (0.9-1.1) POC Sodium (135-144) mmol/L Sodium (136-145) mmol/L POC Potassium (3.3-5.0) mmol/L Potassium (3.5-5.1) mmol/L POC Chloride (101-112) mmol/L Chloride (98-107) mmol/L Carbon Dioxide (21-32) mmol/L POC Total CO2 (24-31) mmol/L Anion Gap (3-11) POC Anion Gap (16-25) mmol/L POC BUN (7-18) mg/dl BUN (7-18) mg/dl Creatinine (0.6-1.2) mg/dl POC Creatinine (0.6-1.3) mg/dl Est Cr Clr Drug Dosing ml/min Est GFR ( Amer) Est GFR (Non-Af Amer) BUN/Creatinine Ratio (10-20) Glucose (70-99) mg/dl POC Glucose (other) (70-99) mg/dl Lactate (0.4-2.0) mmol/L Calcium (8.5-10.1) mg/dl POC Ioniz Calcium Cony (1.12-1.32) mmol/l Phosphorus 4.9 (2.5-4.9) mg/dl Magnesium 1.6 L (1.8-2.4) mg/dl Total Bilirubin (0.2-1) mg/dl AST (15-37) U/L ALT (12-78) U/L Alkaline Phosphatase (45-117) U/L Total Protein (6.4-8.2) gm/dl Albumin (3.4-5.0) gm/dl Globulin (2.5-4.0) gm/dl Albumin/Globulin Ratio (0.9-2) Lipase (73-393) U/L Urine Color Urine Appearance (Clear) Urine pH (4.5-7.5) Ur Specific Corona (1.000-1.030) Urine Protein (Negative) Urine Glucose (UA) (Negative) Urine Ketones (Negative) Urine Blood (Negative) Urine Nitrite (Negative) Urine Bilirubin (Negative) Urine Urobilinogen (Negative) Ur Leukocyte Esterase (Negative) Urine WBC (Auto) (0-5) /hpf Urine RBC (Auto) (0-4) /hpf U Hyaline Cast (Auto) (0-5) /lpf U Epithel Cells (Auto) (0-5) /lpf Urine Bacteria (Auto) (Negative) Urine Mucus (None Prsent) Urine Test Negative (Negative) SARS-CoV-2 Ag (Rapid) (Negative) 09/23/20 09/23/20 09/23/20 Range/Units 11:00 11:00 11:00 WBC 17.50 H (4.8-10.8) K/uL RBC 4.50 (4.2-5.4) M/uL Hgb 14.8 (12.0-16.0) g/dL POC Hgb (12.0-16.0) g/dl Hct 44.4 (37-47) % POC Hct (37-47) % MCV 98.7 (80-100) fL MCH 32.9 (25-34) pg MCHC 33.3 (32-36) g/dL RDW Std Deviation 55.9 H (36.4-46.3) fL RDW Coeff of Hanna 15.6 H (11.5-14.5) % Plt Count 625 H (130-400) K/uL MPV 9.2 (7.4-10.4) fL Immature Gran % (Auto) 0.2 % Neut % (Auto) 85.8 % Lymph % (Auto) 9.5 % Pike % (Auto) 4.2 % Eos % (Auto) 0.1 % Baso % (Auto) 0.2 % Neut # (Auto) 15.03 H (1.4-6.5) K/uL Lymph # (Auto) 1.66 (1.2-3.4) K/uL Pike # (Auto) 0.73 H (0.11-0.59) K/uL Eos # (Auto) 0.01 (0-0.5) K/uL Baso # (Auto) 0.03 (0-0.2) K/uL Immature Gran # (Auto) 0.04 H (0.00-0.02) K/uL PT (9.0-12.0) Seconds INR (0.9-1.1) POC Sodium (135-144) mmol/L Sodium 134 L (136-145) mmol/L POC Potassium (3.3-5.0) mmol/L Potassium 2.9 L (3.5-5.1) mmol/L POC Chloride (101-112) mmol/L Chloride 91 L (98-107) mmol/L Carbon Dioxide 32 (21-32) mmol/L POC Total CO2 (24-31) mmol/L Anion Gap 11.0 (3-11) POC Anion Gap (16-25) mmol/L POC BUN (7-18) mg/dl BUN 4 L (7-18) mg/dl Creatinine 0.85 (0.6-1.2) mg/dl POC Creatinine (0.6-1.3) mg/dl Est Cr Clr Drug Dosing 72.0 ml/min Est GFR ( Amer) 98.6 Est GFR (Non-Af Amer) 85.1 BUN/Creatinine Ratio 4.4 L (10-20) Glucose 153 H (70-99) mg/dl POC Glucose (other) (70-99) mg/dl Lactate (0.4-2.0) mmol/L Calcium 9.6 (8.5-10.1) mg/dl POC Ioniz Calcium Cony (1.12-1.32) mmol/l Phosphorus (2.5-4.9) mg/dl Magnesium (1.8-2.4) mg/dl Total Bilirubin 0.9 (0.2-1) mg/dl AST 128 H (15-37) U/L ALT 60 (12-78) U/L Alkaline Phosphatase 377 H (45-117) U/L Total Protein 9.2 H (6.4-8.2) gm/dl Albumin 3.2 L (3.4-5.0) gm/dl Globulin 6.0 H (2.5-4.0) gm/dl Albumin/Globulin Ratio 0.5 L (0.9-2) Lipase 736 H (73-393) U/L Urine Color Hawkins Urine Appearance Cloudy A (Clear) Urine pH 5.5 (4.5-7.5) Ur Specific Corona 1.027 (1.000-1.030) Urine Protein 1+ H (Negative) Urine Glucose (UA) Trace H (Negative) Urine Ketones Trace H (Negative) Urine Blood Trace H (Negative) Urine Nitrite Positive A (Negative) Urine Bilirubin Negative (Negative) Urine Urobilinogen Negative (Negative) Ur Leukocyte Esterase Trace H (Negative) Urine WBC (Auto) 1-5 (0-5) /hpf Urine RBC (Auto) 5-10 H (0-4) /hpf U Hyaline Cast (Auto) 10-30 H (0-5) /lpf U Epithel Cells (Auto) >30 H (0-5) /lpf Urine Bacteria (Auto) Negative (Negative) Urine Mucus Present A (None Prsent) Urine Test (Negative) SARS-CoV-2 Ag (Rapid) (Negative) Code Status & VTE Plan VTE Prophylaxis Plan VTE Prophylaxis will be ordered: Yes (1) Leukocytosis Leukocytosis type: unspecified Qualified Code(s): D72.829 - Elevated white blood cell count, unspecified
[2020-09-23] MEDS ORDERED: LORazepam 0.25 MG/0.5 ML VIAL IV PRN ×2 (14:27→14:51)
[2020-09-23] MEDS ORDERED: ATIVAN IV ALCOHOL WITHDRAWL IV SCH (15:55)
[2020-09-23] MEDS ORDERED: MULTI-VITAMIN INFUSION 10 ML, THIAMINE HCL 100 MG, FOLIC ACID 1 MG in SODIUM CHLORIDE 0... IV ONE (15:55)
[2020-09-23] MEDS: HYDROmorphone INJ 0.5 MG/0.5 ML SYR IV PRN ×4 (16:23→23:07)
--- NOTE | 2020-09-23 16:28 | Pharmacy Report ---
Pharmacy Abx Initial Consult - Date of Service September 23, 2020 - Pharmacy Dosing Scope Date of Consult: 09/23/20 Consultation requested by: Dr. Higginbotham Pharmacy is consulted to initiate Vancomycin and Zosyn IV dosing therapy, order appropriate labs and adjust drug dose/frequency. - Subjective The patient is a 40 year old F admitted on 09/23/20 13:23. - Objective Height: 5 ft 3 in Weight: 57.2 kg Vital Signs (Past 12hrs): Vital Signs Temp Pulse Pulse Resp BP BP Pulse Ox 09/23/20 15:00 36.5 C 100 H 18 155/109 H 100 09/23/20 14:33 112 H 22 120/78 96 09/23/20 13:05 103 H 15 125/88 98 09/23/20 10:51 36.9 C 146 H 20 123/84 98 Lab Results (24hrs): Laboratory Tests (24 Hours) 09/23/20 09/23/20 11:00 11:00 WBC 17.50 H Neut # (Auto) 15.03 H Creatinine 0.85 Est Cr Clr Drug Dosing 72.0 Micro Results: 09/23/20 11:00 Urine Culture - Pending Urine,Clean Catch 09/23/20 11:30 Aerobic Blood Culture - Pending Blood Anaerobic Blood Culture - Pending 09/23/20 11:00 Aerobic Blood Culture - Pending Blood Anaerobic Blood Culture - Pending - Risk Factors for Resistance * Hospitalization for 48 hours or more within the past 90 days -- multiple recent admissions at [facility] * Antimicrobial use within the last 90 days -- Augmentin, Cipro, cefixime - Assessment & Plan Assessment 40 year old F with complicated PMH being treated for pancreatic necrosis. History of alcohol abuse, recurrent pancreatitis, pancreatic pseudocyst/vomiting necrosis status post recent endoscopic necrosectomy. Multiple recent admissions and antibiotic use. Patient meets criteria for vancomycin AUC dosing nomogram AUC/YOANDY is the preferred PK/PD target for vancomycin Target AUC/YOANDY = 400-600 AUC guided dosing is effective and associated with decreased risk of nephrotoxicity Plan Vancomycin IV * Estimated PK Parameters: Vd 40 L/kg, Иван 0.064 hr-1, t1/2 10.8 hr * Loading dose: 1500 mg (~26 mg/kg) -- already given in the ED * Maintenance dose: 750 mg IV (~13 mg/kg) every 12 hours per Vancomycin AUC nomogram * Goal trough level for GI : 15 to 20 mcg/mL * Trough level ordered for 09/25/20 @ 1330 Piperacillin/tazobactam * 4.5 g bolus administered over 30 minutes, then 3.375 g IV extended infusion every 8 hours for CrCl greater than 20 mL/min Pharmacy will continue to follow and will adjust dose/frequency as necessary. Thank you.
[2020-09-23] MEDS ORDERED: MAGNESIUM SULFATE / D5W 1 GM/100 ML BAG IV SCH (16:30)
[2020-09-23] MEDS: POTASSIUM CHLORIDE / WTR 10 MEQ/100 ML PLCT IV SCH ×2 (16:49→17:43)
[2020-09-23] MEDS: LACTATED RINGER'S 1,000 ML IV SCH ×3 (18:42→23:44)
[2020-09-23] MEDS: THIAMINE HCL 100 MG in SYRINGE 9 ML IV SCH (19:06)
[2020-09-23] MEDS: FOLIC ACID 1 MG in SYRINGE 9.8 ML IV SCH (19:06)
[2020-09-23] MEDS: PIPERACILLIN/TAZOBACTAM 3.375 GM in DEXTROSE 5% 100 ML IV SCH (19:23)
[2020-09-23] MEDS ORDERED: LORAZEPAM 3MG IV ACTIVE PROTOCOL IV PRN (19:30)
[2020-09-23] MEDS ORDERED: LORAZEPAM 2MG IV ACTIVE PROTOCOL IV PRN (19:30)
[2020-09-23] MEDS ORDERED: LORAZEPAM 1MG TAB ACTIVE PROTOCOL PO PRN (19:30)
[2020-09-23] MEDS: LORAZEPAM 1MG IV ACTIVE PROTOCOL IV PRN (20:19)
[2020-09-23] MEDS: HEPARIN SOD 5,000 UNIT/0.5 ML VIAL SQ SCH (20:34)
[2020-09-23 21:58] LABS: Calcium 7.6 mg/dl (8.5-10.1); Creatinine Clr Calc Pharmacy 109.4 ml/min; Est GFR (African American) 134.2; Est GFR (Non-African American) 115.8
[2020-09-23 22:27] LABS: Potassium 3.6 mmol/L (3.5-5.1)
[2020-09-24] MEDS: HYDROmorphone INJ 0.5 MG/0.5 ML SYR IV PRN ×11 (01:06→23:41)
[2020-09-24] MEDS: PIPERACILLIN/TAZOBACTAM 3.375 GM in DEXTROSE 5% 100 ML IV SCH ×3 (01:11→17:49)
[2020-09-24] MEDS ORDERED: VANCOMYCIN HCL 750 MG in SODIUM CHLORIDE 0.9% 250 ML IV SCH (02:00)
[2020-09-24] MEDS: LORAZEPAM 1MG IV ACTIVE PROTOCOL IV PRN ×2 (04:14→17:51)
[2020-09-24] MEDS: LACTATED RINGER'S 1,000 ML IV SCH ×4 (05:29→21:34)
[2020-09-24 07:58] LABS: Albumin Level 2.1 gm/dl (3.4-5.0); BUN Creatinine Ratio 6.4 (10-20); Calcium 8.1 mg/dl (8.5-10.1); Creatinine Clr Calc Pharmacy 115.6 ml/min; Est GFR (African American) 136.7; Est GFR (Non-African American) 117.9; Magnesium 1.8 mg/dl (1.8-2.4); Potassium 3.5 mmol/L (3.5-5.1)
[2020-09-24 08:03] LABS: Hemoglobin 10.4 g/dL (12.0-16.0); Mean Corpuscular Hgb Conc 32.5 g/dL (32-36); Mean Corpuscular Volume 101.6 fL (80-100); Mean Platelet Volume 8.9 fL (7.4-10.4); Platelet Count 321 K/uL (130-400); RDW Coefficient of Variation 16.2 % (11.5-14.5); RDW Standard Deviation 59.2 fL (36.4-46.3); Red Blood Count 3.15 M/uL (4.2-5.4); White Blood Count 5.88 K/uL (4.8-10.8)
[2020-09-24 08:09] LABS: Albumin Globulin Ratio 0.6 (0.9-2); Bilirubin,Total 1.3 mg/dl (0.2-1); Globulin 3.8 gm/dl (2.5-4.0); Total Protein 5.9 gm/dl (6.4-8.2)
[2020-09-24] MEDS: FOLIC ACID 1 MG in SYRINGE 9.8 ML IV SCH (08:15)
[2020-09-24] MEDS: THIAMINE HCL 100 MG in SYRINGE 9 ML IV SCH (08:15)
[2020-09-24] MEDS: HEPARIN SOD 5,000 UNIT/0.5 ML VIAL SQ SCH ×2 (08:16→19:21)
[2020-09-24] MEDS ORDERED: VANCOMYCIN HCL 1,000 MG in SODIUM CHLORIDE 0.9% 250 ML IV SCH (10:00)
--- NOTE | 2020-09-24 10:38 | Gastrointestinal Consultation ---
Date of Consultation September 24, 2020 Assessment & Plan (1) Acute pancreatitis: (2) Pancreatic necrosis: Pt is a 40 y/o female w hx of ongoing ETOH abuse, recurrent pancreatitis complicated by pseudocyst and necrosis development. She is s/p AXIOS stent placement for pancreatic drainage and about 2 weeks ago just had endoscopic necrosectomy for clogged stent. - IVF support - CL diet; if tolerating well may advance slowly to low fat - If doing well, please consider discharge by tomorrow as she has an appt at [facility] [place] on 09/26 for repeat endoscopic debridement by Dr. Ilan Hart. - Symptomatic management w antiemetics and analgesics prn Supervising Physician Co-Signing Physician Notes I saw and evaluated the patient. She had a history of of alcohol is him and has had several episodes of pancreatitis resulting in a large pseudocyst. She underwent endoscpopic cystgastrostomy with an Axios stent at [facility] [place] last month by Dr. Hart and has had 1 debridement of the cyst about 2 weeks ago. The patient is due for repeat upper endoscopy with cyst debridement and is scheduled for later this week. Patient presented with approximately 48 hours of discomfort that began after she began to drink alcohol again. She has had no fevers chills or sweats. CT does show improvement of the cyst collection with evidence of air within it. Physical exam No obvious distress No abdominal tenderness today Impression: Patient with a history of a cyst gastrostomy performed for a large pseudocyst as result of cryptitis. The patient is due for a cyst debridement in the near future. If the patient does not tolerate p.o. 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 History of Present Illness Reason for Consultation: Pancreatitis, hx of pancreas necrosis Requesting Physician: Dr. Gopi Mendoza Attending Physician: Dr. Wilton Ramirez History of Present Illness Pt is a 40 y/o female w hx of ETOH abuse, recurrent pancreatitis w pseudocyst and necrosis development. She is s/p AXIOS stent placement on 08/23 for pancreas pseudocyst drainage. Then on 09/11 underwent endoscopic necrosectomy for the clogged stent. She has an appt on 09/26 for repeat endoscopic necrosectomy. She started drinking ETOH again few days ago and started to get upper abd pain, n/v symptoms. On eval, labs notable for leukocytosis, mild transaminitis and elevated lipase. CT abd/pelvis showed interval decrease in size of the peripherally enhancing peripancreatic fluid collection since CT of September 08, 2020. Cystgastrostomy tube remains in place. Interval decrease in the amount of gas within this collection. + infiltration and fluid adjacent to the duodenum and pancreatic head. This could reflect superimposed acute pancreatitis. No new fluid collections. She also has signs of hepatomegaly and severe hepatic steatosis. Allergies Allergy/AdvReac Type Severity Reaction Status Date / Time tramadol AdvReac Severe SEIZURES Verified 09/23/20 11:38 gabapentin AdvReac Hallucinati Verified 09/23/20 11:38 ng ketorolac [From Toradol] AdvReac Unknown Verified 09/23/20 11:38 Home Medications Medication Instructions Recorded Confirmed Type thiamine HCl (vitamin B1) [Vitamin 100 mg PO QAM #30 tab 06/14/20 09/23/20 Rx B-1] acetaminophen [Tylenol Extra 1,000 mg PO Q6H PRN 08/22/20 09/23/20 History Strength] calcium carbonate [Tums Extra 2 tab PO TID 08/22/20 09/23/20 History Strength Smoothies] magnesium 250 mg PO QAM 08/22/20 09/23/20 History multivitamin 1 tab PO QAM 08/22/20 09/23/20 History Patient History Medical History Alcohol abuse Anxiety History of narcotic addiction Hypertension Migraine Nonischemic cardiomyopathy Pancreatic necrosis Pancreatic pseudocyst Pancreatitis Surgical History H/O esophagogastroduodenoscopy Endoscopic US hx of endoscopic necrosectomy 08/2020 History of dental surgery History of laparoscopic cholecystectomy Family History Grandfather (Paternal) Diabetes Grandmother (Maternal) Diabetes Social History Smoking Status: Never smoker Second Hand Exposure: No; Hx Alcohol Use: Yes Alcohol type: wine Alcohol type Comment: and pt split 1 pint of liquor/week Alcohol Intake Frequency: 4 or More x per/Week Alcohol Intake Frequency Comment: 2-3 alcoholic beverages approx q. other day Hx Substance Use: No Preferred Language: Argentine Communication Ability: Effective Furnace Helper Required: No Beliefs That Will Affect Care: None marital status: Current Living Situation: Spouse How many Children do You have: 5 Other Information That Helps Us Care for You: No Feels Safe at Home: Yes Safety Concerns: Feels Safe At This Time Assistive Devices: None Review of Systems Review of Systems: All systems reviewed & are unremarkable except as noted in HPI & below Physical Exam Constitutional: WD/WN, vitals as above well groomed, cooperative and comfortable Eyes: PERRL, conjunctivae normal, anicteric sclerae ENMT: external ear and nose normal, oropharynx normal Respiratory: normal respiratory effort, lungs clear to auscultation Cardiovascular: RRR, no murmur, no edema Gastrointestinal (Abdomen): Inspection/Auscultation: abdomen not distended Percussion/Palpation: + abdomen tender and abdomen soft Skin: no rashes, warm and dry no jaundice Psychiatric: A+Ox3, euthymic affect Lymphatic: no lymphedema Results & Data ([facility]) Vital Signs (Past 12 Hours) Vital Signs Temp Pulse Pulse Resp BP Pulse Ox 09/24/20 07:00 36.7 C 105 H 118 H 20 123/93 99 09/24/20 03:12 36.7 C 111 H 18 131/92 100 09/23/20 22:53 36.9 C 122 H 18 122/86 96 (1) Acute pancreatitis Acute pancreatitis complication: unspecified Pancreatitis type: alcohol induced Qualified Code(s): K85.20 - Alcohol induced acute pancreatitis without necrosis or infection
[2020-09-24] MEDS ORDERED: LORazepam 0.5 MG TAB PO PRN (10:50)
--- NOTE | 2020-09-24 12:14 | Hospitalist Progress Note ---
Date of Service September 24, 2020 Assessment & Plan (1) Acute pancreatitis: (2) Pancreatic necrosis: (3) Leukocytosis: (4) Elevated LFTs: per admitting service notes: Patient presents with abdominal pain, secondary to pancreatitis, pt w/history of recurrent pancreatitis/pancreatic pseudocyst/pancreatic necrosis WBC elevated at 17,000, patient recently underwent endoscopic pancreatic necrosectomy (08/2020) Patient has been on oral antibiotics after discharge from [facility] in [place], on September 12, reports no fevers or chills Started empirically on antibiotics in the ED, IV Zosyn and vancomycin, will continue Blood cultures obtained, pending Abdominal pain, and leukocytosis likely secondary to acute pancreatitis, however infectious etiology at this point cannot be ruled out Continue IV fluids, LR N.p.o., pain management Routine GI consult AST elevated at 128, ALT normal, 60, alk phos 377, lipase 736 09/24/2020 acute pancreatitis likely secondary to alcohol intake epigastric pain improving clear liquids continue IV LR PRN Dilaudid afebrile cultures pending d/c Vancomycin continue IV Zosyn (5) Hypokalemia: K 3.5 -replace and monitor (6) Hypomagnesemia: Mg 1.8 - replace and monitor (7) Lactic acidosis: lactate 3.7--> 1.2 (8) Tachycardia: -in the setting of acute pancreatitis, pain, poss. etoh withdrawal, electrolyte abnormalities continue pain control, hydration, Alcohol Withdrawal Protocol - patient maintains apart from Thursday, last drink was June reports hallucinations with Gabapentin (9) Alcohol abuse: IV thiamine, IV folic acid Alcohol Withdrawal Protocol including PRN Ativan DVT ppx: SCDs, heparin subq Code: Full Disposition pending anticipate d/c home when medically stable Admission and Anticipated Discharge Date Admission Date: September 23, 2020 Subjective ff up for acute pancreatitis seen resting in bed, comfortable RN at bedside throughout whole encounter states epigastric pain is somewhat better today no nausea, headache, dizziness, chest pain, dyspnea, palpitations reports that her last drink prior to Thursday was last June no other symptoms Review of Systems Review of Systems: All systems reviewed & are unremarkable except as noted in Subjective Physical Exam Physical Exam: General- oriented x 3, not in distress, speaks in sentences with no effort or accessory muscle use Head- atraumatic Eyes- PERRL, EOMI, anicteric ENT- oropharynx clear Neck- supple, no JVD, no adenopathy, no thyromegaly; carotids +2/2, no bruits appreciated Lungs- clear to auscultation bilaterally, no rales/wheezes Heart- normal rate, regular rhythm; no murmur, no gallop, no rub appreciated Abdomen- normal bowel sounds, nondistended, soft, (+) moderate epigastric, no masses or hepatosplenomegaly Extremities- no pretibial edema, no calf tenderness; peripheral pulses intact Neuro- alert, oriented x 3; CN 2-12 grossly intact; motor 5/5 bilaterally;sensation 100% on all extremities; no other gross focal neurologic deficits Skin- warm & dry Results & Data Results & Data ([facility]) Vital Signs (Past 12 Hours) Vital Signs Temp Pulse Pulse Resp BP Pulse Ox 09/24/20 12:03 36.6 C 107 H 19 112/78 98 09/24/20 07:00 36.7 C 105 H 118 H 20 123/93 99 09/24/20 03:12 36.7 C 111 H 18 131/92 100 Laboratory Results Laboratory Results - last 24 hr 09/23/20 09/23/20 09/23/20 19:06 21:06 21:06 WBC RBC Hgb Hct MCV MCH MCHC RDW Std Deviation RDW Coeff of Hanna Plt Count MPV Sodium 139 Potassium 3.6 D Chloride 104 Carbon Dioxide 26 Anion Gap 9.0 BUN 5 L Creatinine 0.56 L Est Cr Clr Drug Dosing 109.4 Est GFR ( Amer) 134.2 Est GFR (Non-Af Amer) 115.8 BUN/Creatinine Ratio 8.0 L Glucose 105 H Lactate 2.6 H* 2.1 H* Calcium 7.6 L D Magnesium Total Bilirubin AST ALT Alkaline Phosphatase Total Protein Albumin Globulin Albumin/Globulin Ratio 09/24/20 09/24/20 09/24/20 07:27 07:27 07:27 WBC 5.88 D RBC 3.15 L Hgb 10.4 L D Hct 32.0 L MCV 101.6 H MCH 33.0 MCHC 32.5 RDW Std Deviation 59.2 H RDW Coeff of Hanna 16.2 H Plt Count 321 MPV 8.9 Sodium 139 Potassium 3.5 Chloride 105 Carbon Dioxide 29 Anion Gap 5.0 BUN 3 L Creatinine 0.53 L Est Cr Clr Drug Dosing 115.6 Est GFR ( Amer) 136.7 Est GFR (Non-Af Amer) 117.9 BUN/Creatinine Ratio 6.4 L Glucose 100 H Lactate 1.2 Calcium 8.1 L Magnesium 1.8 Total Bilirubin 1.3 H AST 83 H ALT 36 Alkaline Phosphatase 232 H Total Protein 5.9 L D Albumin 2.1 L Globulin 3.8 Albumin/Globulin Ratio 0.6 L (1) Leukocytosis Leukocytosis type: unspecified Qualified Code(s): D72.829 - Elevated white b lood cell count, unspecified (2) Acute pancreatitis Acute pancreatitis complication: unspecified Pancreatitis type: alcohol induced Qualified Code(s): K85.20 - Alcohol induced acute pancreatitis without necrosis or infection
[2020-09-25] MEDS: HYDROmorphone INJ 0.5 MG/0.5 ML SYR IV PRN ×6 (01:47→17:16)
[2020-09-25] MEDS: PIPERACILLIN/TAZOBACTAM 3.375 GM in DEXTROSE 5% 100 ML IV SCH ×2 (01:47→08:20)
[2020-09-25] MEDS: LACTATED RINGER'S 1,000 ML IV SCH ×2 (03:33→08:18)
[2020-09-25] MEDS: LORAZEPAM 1MG IV ACTIVE PROTOCOL IV PRN ×2 (03:44→11:16)
[2020-09-25 07:27] LABS: Hematocrit (blood only) 36.9 % (37-47); Hemoglobin 11.6 g/dL (12.0-16.0); Mean Corpuscular Hemoglobin 32.4 pg (25-34); Mean Corpuscular Hgb Conc 31.4 g/dL (32-36); Mean Corpuscular Volume 103.1 fL (80-100); Mean Platelet Volume 9.4 fL (7.4-10.4); Platelet Count 313 K/uL (130-400); RDW Coefficient of Variation 16.5 % (11.5-14.5); RDW Standard Deviation 61.7 fL (36.4-46.3); Red Blood Count 3.58 M/uL (4.2-5.4); White Blood Count 5.87 K/uL (4.8-10.8)
[2020-09-25 07:56] LABS: Albumin Level 2.3 gm/dl (3.4-5.0); BUN Creatinine Ratio 3.6 (10-20); Creatinine Clr Calc Pharmacy 81.7 ml/min; Est GFR (African American) 114.8; Magnesium 1.7 mg/dl (1.8-2.4); Potassium 3.2 mmol/L (3.5-5.1)
[2020-09-25 07:59] LABS: Albumin Globulin Ratio 0.5 (0.9-2); Globulin 4.4 gm/dl (2.5-4.0); Total Protein 6.7 gm/dl (6.4-8.2)
[2020-09-25] MEDS: THIAMINE HCL 100 MG in SYRINGE 9 ML IV SCH (08:19)
[2020-09-25] MEDS: FOLIC ACID 1 MG in SYRINGE 9.8 ML IV SCH (08:19)
[2020-09-25] MEDS: HEPARIN SOD 5,000 UNIT/0.5 ML VIAL SQ SCH (08:42)
[2020-09-25] MEDS ORDERED: VANCOMYCIN TROUGH ONE ×2 (09:30→13:30)
--- NOTE | 2020-09-25 09:59 | Gastroenterology Progress Note ---
Date of Service September 25, 2020 Assessment & Plan (1) Acute pancreatitis: (2) Pancreatic necrosis: Pt is a 40 y/o female w hx of ongoing ETOH abuse, recurrent pancreatitis complicated by pseudocyst and necrosis development. She is s/p AXIOS stent placement for pancreatic drainage and about 2 weeks ago just had endoscopic necrosectomy for clogged stent. Symptomatically doing well - DC IVF - CL diet today - No contraindication for DC home today; Has f/u at [facility] on 09/26 for repeat endoscopic debridement by Dr. Ilan Hart. We can help arrange f/u endoscopic eval in 4 weeks afterwards - Symptomatic management w antiemetics and analgesics prn Admission and Anticipated Discharge Date Admission Date: September 23, 2020 Supervising Physician Co-Signing Physician Notes I saw and evaluated the patient. She notes that she feels much improved today. She is to have her repeat upper endoscopy with parotic debridement performed at [facility] tomorrow. We will make arrangements to have this done locally in the future. Please call with any questions or concerns Subjective Pt denies abd pain, n/v. Tolerating toast this AM. Is passing flatus Review of Systems Review of Systems: All systems reviewed & are unremarkable except as noted in HPI & below Physical Exam Constitutional: WD/WN, vitals as above well groomed, cooperative and com fortable Eyes: PERRL, conjunctivae normal, anicteric sclerae ENMT: external ear and nose normal, oropharynx normal Respiratory: normal respiratory effort, lungs clear to auscultation Cardiovascular: RRR, no murmur, no edema Gastrointestinal (Abdomen): normal bowel sounds, soft, nontender, no hepatosplenomegaly Skin: no rashes, warm and dry no jaundice Psychiatric: A+Ox3, euthymic affect Lymphatic: no lymphedema Results & Data ([facility]) Vital Signs (Past 12 Hours) Vital Signs Temp Pulse Pulse Resp BP Pulse Ox 09/25/20 08:00 112 H 09/25/20 06:56 36.7 C 116 H 18 142/94 H 94 09/25/20 03:30 36.7 C 125 H 20 150/110 H 98 09/24/20 23:34 36.8 C 128 H 18 129/89 98 (1) Acute pancreatitis Acute pancreatitis complication: unspecified Pancreatitis type: alcohol induced Qualified Code(s): K85.20 - Alcohol induced acute pancreatitis without necrosis or infection
[2020-09-25] MEDS ORDERED: POTASSIUM CHLORIDE CRTAB 20 MEQ TABCR PO SCH (10:30)
[2020-09-25] MEDS ORDERED: MAGNESIUM OXIDE 400 MG TAB PO SCH (10:30)
[2020-09-25 11:20] LABS: D Dimer 2920 ug/L FEU (0-500)
--- NOTE | 2020-09-25 13:54 | Ultrasound Report ---
US venous doppler LE BI CLINICAL HISTORY: elevated d dimer, r/o dvt COMPARISON STUDY: 10/01/2007 FINDINGS: Real-time and color flow Doppler imaging were performed. Flow was seen within the femoral, popliteal and calf veins with no intraluminal thrombus demonstrated. The saphenous vein is patent. IMPRESSION: No evidence of lower extremity DVT. ACT 112: Negative or not required by law. Electronically signed by: Andrade Singh M.D. 09/25/2020 1:53 PM
--- NOTE | 2020-09-25 15:55 | Nuclear Medicine Report ---
NM pul perfusion CLINICAL HISTORY: tachycardia, elevated d dimer r/o pulmonary embolism COMPARISON STUDY: Chest radiograph July 27, 2020. TECHNIQUE: A nuclear medicine perfusion study was performed. 5.6 mCi of technetium 99m MAA was inject ed IV at 3:25 PM on September 25, 2020. Following injection, imaging of the chest was performed in typi gagan projections. Ventilation imaging was not performed due to Covid restrictions. FINDINGS: Evaluation is suboptimal given inability to perform ventilation imaging. There is a small p eripheral focus of decreased perfusion within the posterior aspect of the right lower lobe. No additi onal perfusion defects are noted. IMPRESSION: Small focus of mild decreased perfusion within the posterior aspect of the right lower l obe. Exam compromised given inability to perform ventilation imaging. Although not highly suspicious, this study is considered indeterminate/intermediate probability for pulmonary embolus. ACT 112: Negative or not required by law. Electronically signed by: Remi Arizmendi M.D. 09/25/2020 3:54 PM
[2020-09-25 15:58] VITALS: BP 151/116; TEMP 97.3; O2SAT 99
--- NOTE | 2020-09-25 17:18 | Hospitalist Progress Note ---
Date of Service delayed entry date of service noted below September 25, 2020 Assessment & Plan (1) Acute pancreatitis: (2) Pancreatic necrosis: (3) Leukocytosis: (4) Elevated LFTs: per admitting service notes: Patient presents with abdominal pain, secondary to pancreatitis, pt w/history o f recurrent pancreatitis/pancreatic pseudocyst/pancreatic necrosis WBC elevated at 17,000, patient recently underwent endoscopic pancreatic necrosectomy (08/2020) Patient has been on oral antibiotics after discharge from [facility] in [place], on September 12, reports no fevers or chills Started empirically on antibiotics in the ED, IV Zosyn and vancomycin, will continue Blood cultures obtained, pending Abdominal pain, and leukocytosis likely secondary to acute pancreatitis, however infectious etiology at this point cannot be ruled out Continue IV fluids, LR N.p.o., pain management Routine GI consult AST elevated at 128, ALT normal, 60, alk phos 377, lipase 736 09/25/2020 acute pancreatitis likely secondary to alcohol intake epigastric pain improving cleared for discharge by GI: "Has f/u at [facility] on 09/26 for repeat endoscopic debridement by Dr. Ilan Hart. We can help arrange f/u endoscopic eval in 4 weeks afterwards" afebrile no symptoms/signs of infection blood cultures pending d/c Vancomycin and IV Zosyn (5) Hypokalemia: K 3.5 -replaced - repeat on ff up with PCP (6) Hypomagnesemia: Mg 1.8 - replaced - repeat on ff up with PCP (7) Lactic acidosis: lactate 3.7--> 1.2 (8) Tachycardia: - sinus tachycardia -in the setting of acute pancreatitis, pain, poss. etoh withdrawal, electrolyte abnormalities pain control, hydration, Alcohol Withdrawal Protocol - patient maintains apart from Thursday, last drink was June reports hallucinations with Gabapentin - HR in the 110s while at rest up to 140s when ambulating - patient states she has baseline anxiety - D dimer 2920 - Doppler US: negative for PE VQ scan: intermediate probability -requesting discharge despite extensive explanation declining CT Angio to definitively r/o PE discussed possible consequences including shortness of breath, hypoxia, permanent disability, she verbalized understanding, agreement and is comfortable with plan of care given instructions to watch out for re: PE symptoms and advised to go to the ER immediately if present (9) Alcohol abuse: IV thiamine, IV folic acid Alcohol Withdrawal Protocol including PRN Ativan DVT ppx: SCDs, heparin subq Code: Full Disposition d.c home ff up with ALFREDO Shay 09/26 ff up with GI Jani Johnson as scheduled ff up with PCP in 1 week plan of care discussed with patient in detail and at length all questions were answered she is understanding, agreeable, comfortable with plan of care Admission and Anticipated Discharge Date Admission Date: September 23, 2020 Subjective ff up for acute pancreatitis seen resting in bed, RN present thru whole encounter states she feels better overall occasional pain on the epigastric region but better no nausea, tolerating diet well no chest pain, dyspnea, palpitations, dizziness, headache no other symptoms re-evaluated in the evening states she still feels fine overall requesting discharge declining CT Angio to definitively r/o PE discussed possible consequences including shortness of breath, hypoxia, permanent disability, she verbalized understanding, agreement and is comfortable with plan of care given instructions to watch out for re: PE symptoms and advised to go to the ER immediately if present Review of Systems Review of Systems: All systems reviewed & are unremarkable except as noted in Subjective Physical Exam Physical Exam: General- oriented x 3, not in distress, speaks in sentences with no effort or accessory muscle use Eyes- anicteric Neck- no JVD Lungs- clear breath sounds bilaterally, no rales/wheezes Heart- mild tachycardic, regular rhythm; no murmurs Abdomen- normal bowel sounds, nondistended, soft, mild epigastric tenderness Extremities- no pretibial edema, no calf tenderness Neuro- alert, oriented x 3; no gross focal neurologic deficits Skin- warm & dry Results & Data Results & Data ([facility]) Vital Signs (Past 12 Hours) Vital Signs Temp Pulse Pulse Resp BP Pulse Ox 09/25/20 16:00 114 H 09/25/20 15:56 36.3 C L 118 H 18 151/116 H 99 09/25/20 14:00 37 C 116 H 16 149/112 H 97 09/25/20 10:56 36.9 C 128 H 18 144/110 H 95 09/25/20 08:00 112 H 09/25/20 06:56 36.7 C 116 H 18 142/94 H 94 Laboratory Results all noted and reviewed (1) Leukocytosis Leukocytosis type: unspecified Qualified Code(s): D72.829 - Elevated white blood cell count, unspecified (2) Acute pancreatitis Acute pancreatitis complication: unspecified Pancreatitis type: alcohol induced Qualified Code(s): K85.20 - Alcohol induced acute pancreatitis without necrosis or infection
[2020-09-25 17:37] VITALS: PULSE 118
--- NOTE | 2020-09-26 19:13 | Discharge Summary ---
Date of Service September 26, 2020 Admission HPI Per Admitting Provider Mrs. 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 Significant med. history, patient was admitted to [facility] in [place], from July 27 to July 30 with concern for a peripancreatic fluid collection, 11 x 8 x 5 cm with mass-effect on the stomach and with peripancreatic stranding. Was treated with antibiotics and IV fluids and improved. GI was consulted at that time, and suspected that collection was more likely a walled off necrosis versus pseudocyst, not mature enough to be drained. She was again admitted to [facility] from August 23 to August 25 and underwent an EGD and EUS with placement of cystogastrostomy stent. On endoscopic evaluation, the fluid collection appeared to be a pseudocyst as opposed to walled off necrosis or abscess. Most recently patient was admitted to [facility] between September 08 and September 12, 2020. At that time, white blood cell count was elevated at 16,[address] scan of abdomen and pelvis done at [facility], on September 08, 2020 was suspicious for peripancreatic abscesses. Patient was treated with IV broad-spectrum antibiotics, she was transferred from [facility] ED. On presentation patient's heart rate was around 140-150s, sinus tachycardia on EKG, thought to be secondary to sepsis from intra-abdominal abscesses versus alcohol withdrawal given positive alcohol level. Patient subsequently underwent upper GI endoscopy and endoscopic necrosectomy was done. During endoscopic ultrasound, axion metal stent was found on the posterior wall of the stomach. The stent was clogged. The cyst was partially filled with fluid and black necrotic tissue that was pasty and adherent to the cyst wall. Necrosectomy was performed. At the conclusion of the procedure, a small amount of necrotic tissue was found within the pseudocyst on direct visio n. The examined duodenum was normal. GI recommended to repeat upper endoscopy in 2 weeks. Also recommended antibiotics, Augmentin and Cipro for 7 days after discharge. Cipro was switched to cefixime due to prolonged QT interval. Patient reports that she has been taking antibiotics as prescribed. She has been doing well at home unfortunately though yesterday she was drinking alcohol again with her . She then became sick, vomited last night. She reports poor appetite, severe abdominal discomfort. Denies any fevers chills, chest pain shortness of breath, cough. Patient reports normal bowel movements, no blood in the stool. No hematemesis. No dysuria or blood in the urine. In the ED today, WBC was found elevated at 17,500, lactic acid elevated at 3.7. Chemistry significant for low potassium of 2.9, magnesium 1.6. Lipase elevated at 736. CT of the abdomen pelvis was performed, showed interval decrease in size of the peripherally enhancing peripancreatic fluid collection since September 08. Cystgastrostomy tube remains in place. Interval decrease in the amount of gas within this collection. Sterility of this collection cannot be assessed by CT. ED provider discussed the case with GI physician on-call in [place], at [facility], Dr. Rubio. It was recommended that at this time patient may stay at [facility], and be treated for p ancreatitis, at this point they would not proceed with any procedures. If of course patient's clinical status worsens, will consider transfer again. Admission Exam Per Admitting Provider Constitutional: WD/WN, vitals as above no acute distress Eyes: PERRL, conjunctivae normal, anicteric sclerae ENMT: external ear and nose normal, oropharynx normal Neck: normal visual inspection; no neck crepitus and neck nontender Respiratory: normal respiratory effort, lungs clear to auscultation Auscultation: no crackles, no rales, no rhonchi and no wheezes Cardiovascular: RRR, no murmur, no edema Chest (Breasts): normal inspection/palpation of breasts Gastrointestinal (Abdomen): Inspection/Auscultation: abdomen normal to inspection and normal bowel sounds; abdomen not distended and no abdominal edema Percussion/Palpation: + abdomen tender (epigastric region) and abdomen soft; abdomen not rigid Musculoskeletal: no cyanosis or clubbing, extremities motor strength 5/5 Head/Neck/Chest: normocephalic and head atraumatic Skin: no rashes, warm and dry Neurologic: PERRL, EOMI, accommodation nl, no face palsy, no dysarthria moves all extremities and awake Psychiatric: A+Ox3, euthymic affect Genitourinary: no CVA tenderness Lymphatic: no lymphedema Principal Diagnosis Acute Pancreatitis likely secondary to Alcoho Intake Discharge Exam General- oriented x 3, not in distress, speaks in sentences with no effort or accessory muscle use Eyes- anicteric Neck- no JVD Lungs- clear breath sounds bilaterally, no rales/wheezes Heart- mild tachycardic, regular rhythm; no murmurs Abdomen- normal bowel sounds, nondistended, soft, mild epigastric tenderness Extremities- no pretibial edema, no calf tenderness Neuro- alert, oriented x 3; no gross focal neurologic deficits Skin- warm & dry Discharge Data Allergies Allergy/AdvReac Type Severity Reaction Status Date / Time tramadol AdvReac Severe SEIZURES Verified 09/23/20 11:38 gabapentin AdvReac Hallucinati Verified 09/23/20 11:38 ng ketorolac [From Toradol] AdvReac Unknown Verified 09/23/20 11:38 Consultations 09/23/20 13:02 ED Decision to Admit Stat 09/23/20 15:19 Consult Gastroenterology Routine Ordered Studies 09/23/20 11:19 CT abd pelvis IV con only Stat FINDINGS: Lung bases are unremarkable. No pneumatosis, free air or portal venous gas is present. Hepatomegaly and severe hepatic steatosis is again noted. There is no biliary ductal dilatation status post cholecystectomy. Pancreatic glandular atrophy is again noted. Peripancreatic infiltration and fluid is again noted. Infiltration and ill-defined soft tissue adjacent to the pancreatic tail has slightly decreased since prior examination. Infiltration adjacent to the duodenum and pancreatic head has slightly increased. A cystgastrostomy tube is in place. The peripancreatic fluid collection drained by the cystgastrostomy tube has decreased in size since CT of September 08, 2020. This collection now measures 8.3 cm in transverse dimension. It previously measured 11.8 cm. Gas within this collection is again noted. The amount of gas is decreased since prior examination. As before, this peripancreatic fluid collection is thick walled. Nodularity within both paracolic gutters is noted. This is likely related to previous episodes of pancreatitis. There is mild wall thickening of the adjacent splenic flexure of the colon. There is no evidence for a bowel obstruction. As before, the splenic vein is narrowed but patent. The main, left and right portal veins are patent. The spleen, adrenal glands and kidneys are unremarkable. There is no hydronephrosis. The appendix is unremarkable. The ovaries are not enlarged. Fat-containing umbilical hernia is present. IMPRESSION: 1. Interval decrease in size of the peripherally enhancing peripancreatic fluid collection since CT of September 08, 2020. Cystgastrostomy tube remains in place. Interval decrease in the amount of gas within this collection. Sterility of this collection cannot be assessed by CT. 2. Infiltration and fluid adjacent to the duodenum and pancreatic head. This could reflect superimposed acute pancreatitis. No new fluid collections. 3. Hepatomegaly and severe hepatic steatosis. 4. Wall thickening of the splenic flexure of the colon adjacent to the peripancreatic fluid collection. This is probably reactive. No bowel obstruction. 09/25/20 13:30 US venous doppler LE BI Stat FINDINGS: Real-time and color flow Doppler imaging were performed. Flow was seen within the femoral, popliteal and calf veins with no intraluminal thrombus demonstrated. The saphenous vein is patent. IMPRESSION: No evidence of lower extremity DVT. 09/25/20 VQ scan FINDINGS: Evaluation is suboptimal given inability to perform ventilation imaging. There is a small peripheral focus of decreased perfusion within the posterior aspect of the right lower lobe. No additional perfusion defects are noted. IMPRESSION: Small focus of mild decreased perfusion within the posterior aspect of the right lower lobe. Exam compromised given inability to perform ventilation imaging. Although not highly suspicious, this study is considered indeterminate/intermediate probability for pulmonary embolus. Hospital Course (1) Acute pancreatitis: (2) Pancreatic necrosis: (3) Leukocytosis: (4) Elevated LFTs: per admitting service notes: Patient presents with abdominal pain, secondary to pancreatitis, pt w/history of recurrent pancreatitis/pancreatic pseudocyst/pancreatic necrosis WBC elevated at 17,000, patient recently underwent endoscopic pancreatic necrosectomy (08/2020) Patient has been on oral antibiotics after discharge from [facility] in [place], on September 12, reports no fevers or chills Started empirically on antibiotics in the ED, IV Zosyn and vancomycin, will continue Blood cultures obtained, pending Abdominal pain, and leukocytosis likely secondary to acute pancreatitis, however infectious etiology at this point cannot be ruled out Continue IV fluids, LR N.p.o., pain management Routine GI consult AST elevated at 128, ALT normal, 60, alk phos 377, lipase 736 09/25/2020 acute pancreatitis likely secondary to alcohol intake epigastric pain improving cleared for discharge by GI: "Has f/u at [facility] on 09/26 for repeat endoscopic debridement by Dr. Ilan Hart. We can help arrange f/u endoscopic eval in 4 weeks afterwards" afebrile no symptoms/signs of infection blood cultures pending d/c Vancomycin and IV Zosyn (5) Hypokalemia: K 3.5 -replaced - repeat on ff up with PCP (6) Hypomagnesemia: Mg 1.8 - replaced - repeat on ff up with PCP (7) Lactic acidosis: lactate 3.7--> 1.2 (8) Tachycardia: - sinus tachycardia -in the setting of acute pancreatitis, pain, poss. etoh withdrawal, electrolyte abnormalities pain control, hydration, Alcohol Withdrawal Protocol - patient maintains apart from Thursday, last drink was June reports hallucinations with Gabapentin - HR in the 110s while at rest up to 140s when ambulating - patient states she has baseline anxiety - D dimer 2920 - Doppler US: negative for PE VQ scan: FINDINGS: Evaluation is suboptimal given inability to perform ventilation imaging. There is a small peripheral focus of decreased perfusion within the posterior aspect of the right lower lobe. No additional perfusion defects are noted. IMPRESSION: Small focus of mild decreased perfusion within the posterior aspect of the right lower lobe. Exam compromised given inability to perform ventilation imaging. Although not highly suspicious, this study is considered indeterminate/intermediate probability for pulmonary embolus. -requesting discharge despite extensive explanation declining CT Angio to definitively r/o PE discussed possible consequences including shortness of breath, hypoxia, permanent disability, she verbalized understanding, agreement and is comfortable with plan of care given instructions to watch out for re: PE symptoms and advised to go to the ER immediately if present (9) Alcohol abuse: IV thiamine, IV folic acid Alcohol Withdrawal Protocol including PRN Ativan advised NOT to drink alcohol again, patient verbalized agreement DVT ppx: SCDs, heparin subq Code: Full Disposition d.c home ff up with ALFREDO Shay 09/26 ff up with ALFREDO Johnson as scheduled ff up with PCP in 1 week plan of care discussed with patient in detail and at length all questions were answered she is understanding, agreeable, comfortable with plan of care Total Time Total Time Spent Total Time Spent (In Minutes): > 30 minutes Discharge Plan Discharge Items Patient Disposition: Home - Self-Care Reason For Visit: PANCREATIC NECROSIS/ ABD PAIN Discharge Diagnosis: ACUTE PANCREATITIS, LIKELY SECONDARY TO ALCOHOL INTAKE Activity: Resume your previous activity Activity Comment: AMBULATE FREQUENTLY, BUT NO HEAVY EXERTION Lifting: Wait until after follow-up appointment Exercise/Sports: Wait until after follow-up appointment Driving/Machine Use: NO DRIVING UNTIL RE-EVALUATED AND ALLOWED BY PRIMARY CARE PHYSICIAN Non-emergency contact: Primary Care Provider and Hydroponics Worker Call non-emergency contact if: you have any medication questions, your symptoms worsen, your pain is not controlled, your pain is worsening, your pain is unusual for you, your pain is concerning for you and you have a fever Follow-up/Referrals: Peterson Lr MD [Primary Care Provider] - Wilton Ramirez DO [Physician] - Diet: Heart Healthy and Low Fat Addtl Attending Provider Instructions: CONTINUE TO DRINK PLENTY OF FLUIDS. STAY WITH SOFT, BLAND DIET. SMALL MEALS AT A TIME. AVOID ACIDIC FOODS/DRINKS, CARBONATED BEVERAGES. NO CAFFEINATED BEVERAGES. NO ALCOHOL/SMOKING. YOUR NEW MEDICATIONS ARE: NORCO- FOR PAIN CONTROL POTASSIUM SUPPLEMENT- FOR LOW LEVEL OF POTASSIUM NO DRIVING WHILE TAKING NORCO. TAKE NORCO ONLY DIRECTED. DO NOT TAKE MEDICATIONS UNDER THE CLASS OF NSAIDS INCLUDING IBUPROFEN, NAPROXEN, ETC. DO NOT TAKE MORE THAN 3,000MG OF TYLENOL PER DAY. PROCEED TO THE ER IMMEDIATELY IF YOU ARE HAVING WORSENING OF SYMPTOMS INCLUDING ABDOMINAL PAIN, NAUSEA/VOMITING, FEVER/CHILLS, WEAKNESS, CHEST PAIN, SHORTNESS OF BREATH, PALPITATIONS, LEG SWELLING/PAIN/REDNESS. FOLLOW UP WITH THE MORTGAGE PROFESSIONAL TOMORROW SCHEDULED. FOLLOW UP WITH YOUR PRIMARY CARE PHYSICIAN IN 1 WEEK. FOLLOW UP WITH THE MORTGAGE PROFESSIONAL IN [facility] IN 3-4 WEEKS. THE CLINIC WILL BE CALLING YOU FOR THE APPOINTMENT SCHEDULE. Pending Studies at Discharge: Yes Studies:: FINAL RESULTS OF BLOOD CULTURE Stand-Alone Forms: My [employer], Smoking Cessation Medications and DC Order Prescriptions: New potassium chloride [Klor-Con M20] 20 mEq Tablet,Er Particles/Crystals 40 meq PO DAILY Qty: 14 RF: 0 hydrocodone-acetaminophen [[place]] 5-325 mg tablet 1 tab PO Q6H PRN (Reason: pain) Qty: 10 RF: 0 Continued multivitamin Tablet 1 tab PO QAM RF: 0 calcium carbonate [Tums Extra Strength Smoothies] 300 mg (750 mg) tablet,chewable 2 tab PO TID RF: 0 magnesium 250 mg Tablet 250 mg PO QAM RF: 0 thiamine HCl (vitamin B1) [Vitamin B-1] 100 mg Tablet 100 mg PO QAM Qty: 30 RF: 0 Discontinued acetaminophen [Tylenol Extra Strength] 500 mg Tablet 1,000 mg PO Q6H PRN (Reason: Pain) RF: 0 Discharge Orders: Discharge Order (Routine); Ordered 09/25/20 Ordered By: Gopi Parry/Other Patient Handouts: Low-Fat Cooking Tips, Adding Flavor to Low-Fat Meals Admission Data Admit Date/Time: 09/23/20 13:23 Attending Provider: Gopi Mendoza Admit Provider: Paulino Higginbotham Primary Care Provider: Peterson Lr Other Providers: Paulino Higginbotham ; Sanjeev Saez Other Interventions: Discharge Summary Assessment (RN) Last Done: 09/25/20 17:36
== END 2020-09-25 17:45 | disposition home or self-care (01) | DRG 439 ==
LOC: ED 10:37 → SUATTDRO 13:23 → 2S 13:23

== ENCOUNTER 2020-10-07 21:53 | Inpatient (IN) ==
[2020-10-07] MEDS ORDERED: SODIUM CHLORIDE 0.9% 1000ML 1,000 ML IV ONE ×2 (22:01→23:14)
[2020-10-07 22:35] LABS: Basophils # (auto) 0.02 K/uL (0-0.2); Basophils % (auto) 0.2 %; Hematocrit (blood only) 40.8 % (37-47); Hemoglobin 13.9 g/dL (12.0-16.0); Immature Granulocytes # (auto) 0.02 K/uL (0.00-0.02); Immature Granulocytes % (auto) 0.2 %; Lymphocytes # (auto) 1.41 K/uL (1.2-3.4); Lymphocytes % (auto) 12.6 %; Mean Corpuscular Hemoglobin 33.1 pg (25-34); Mean Corpuscular Hgb Conc 34.1 g/dL (32-36); Mean Corpuscular Volume 97.1 fL (80-100); Mean Platelet Volume 9.3 fL (7.4-10.4); Monocytes # (auto) 0.59 K/uL (0.11-0.59); Monocytes % (auto) 5.3 %; Neutrophils # (auto) 9.16 K/uL (1.4-6.5); Neutrophils % (auto) 81.7 %; Platelet Count 559 K/uL (130-400); RDW Coefficient of Variation 15.9 % (11.5-14.5); RDW Standard Deviation 56.5 fL (36.4-46.3)
[2020-10-07 22:49] LABS: Pregnancy Test, Serum Negative (Negative)
[2020-10-07] MEDS ORDERED: MoRPHine SULFATE 4 MG/ML 1 ML CARP\\VIAL IV STA (22:54)
[2020-10-07] MEDS ORDERED: ONDANSETRON INJ 2 MG/ML 2 ML VIAL IV STA (22:55)
[2020-10-07 23:13] LABS: Albumin Globulin Ratio 0.6 (0.9-2); Albumin Level 3.1 gm/dl (3.4-5.0); BUN Creatinine Ratio 8.3 (10-20); Bilirubin,Total 0.9 mg/dl (0.2-1); Calcium 8.3 mg/dl (8.5-10.1); Creatinine Clr Calc Pharmacy 65.9 ml/min; Est GFR (African American) 88.5; Est GFR (Non-African American) 76.3; Globulin 5.1 gm/dl (2.5-4.0); Potassium 2.4 mmol/L (3.5-5.1); Total Protein 8.2 gm/dl (6.4-8.2); Troponin I 0.165 ng/ml (0-0.045)
[2020-10-07] MEDS ORDERED: LORazepam 1 MG/2 ML VIAL IV STA ×2 (23:14→23:17)
[2020-10-07] MEDS ORDERED: chlordiazePOXIDE HCl 25 MG CAP PO ONE (23:17)
[2020-10-07] MEDS ORDERED: POTASSIUM CHLORIDE 40 MEQ in SODIUM CHLORIDE 0.9% 1000ML 1,000 ML IV ONE (23:37)
[2020-10-07 23:38] LABS: Magnesium 1.2 mg/dl (1.8-2.4)
[2020-10-07] MEDS ORDERED: MULTI-VITAMIN INFUSION 10 ML, THIAMINE HCL 100 MG, FOLIC ACID 1 MG, POTASSIUM CHLORIDE ... IV STA (23:43)
[2020-10-07] MEDS ORDERED: MAGNESIUM SULFATE / D5W 1 GM/100 ML BAG IV STA (23:43)
[2020-10-07] MEDS: POTASSIUM CHLORIDE / WTR 10 MEQ/100 ML PLCT IV SCH (23:44)
[2020-10-07] MEDS ORDERED: POTASSIUM CHLORIDE 20 MEQ/15 ML UDC PO STA (23:47)
[2020-10-07 23:55] LABS: Partial Thromboplastin Ratio 0.9; Partial Thromboplastin Time 23.8 Seconds (21.0-31.0)
[2020-10-08] MEDS ORDERED: POTASSIUM CHLORIDE 10 MEQ TABCR PO STA (00:07)
[2020-10-08 00:08] LABS: INR 1.2 (0.9-1.1); Prothrombin Time 12.2 Seconds (9.0-12.0)
[2020-10-08] MEDS ORDERED: oxyCODONE HCL IR 5 MG TAB (IMMEDIATE RELEASE) ONE (00:15)
[2020-10-08] MEDS ORDERED: fentaNYL citrate 100 MCG/2 ML VIAL IV STA (00:24)
--- NOTE | 2020-10-08 01:14 | Emergency Department Note ---
History of Present Illness General Chief complaint: Abdominal Pain Stated complaint: PANCREATITIS, ABD PAIN Time Seen by Provider: 10/07/20 21:57 History of Present Illness Maximum Pain Intensity: 5 This 40-year-old alcoholic with a history of pancreatitis presents to the ER complaining of epigastric pain and nausea vomiting Location: Abdomen Quality: Painful Severity: Moderate Duration: Today Timing: Today Context: Pain persisted and patient came in Modifying factors: better with nothing; worse with drinking Patient states she has been binge drinking for the past several days. She has been here multiple times for pancreatitis. Symptoms feel similar. Patient denies chest pain, dyspnea, fever, chills, flulike illness. No history of alcohol withdrawal seizures. Home Medications Medication Instructions Recorded Confirmed Type thiamine HCl (vitamin B1) [Vitamin 100 mg PO QAM #30 tab 06/14/20 10/07/20 Rx B-1] calcium carbonate [Tums Extra 2 tab PO TID 08/22/20 10/07/20 History Strength Smoothies] magnesium 250 mg PO QAM 08/22/20 10/07/20 History multivitamin 1 tab PO QAM 08/22/20 10/07/20 History potassium chloride [Klor-Con M20] 40 meq PO DAILY #14 tab 09/25/20 10/07/20 Rx folic acid 1 mg PO DAILY 10/07/20 10/07/20 History Allergies Allergy/AdvReac Type Severity Reaction Status Date / Time tramadol AdvReac Severe SEIZURES Verified 10/07/20 23:34 gabapentin AdvReac Hallucinati Verified 10/07/20 23:34 ng ketorolac [From Toradol] AdvReac Unknown Verified 10/07/20 23:34 Past Med/Surg History Medical History Alcohol abuse Anxiety History of narcotic addiction Hypertension Migraine Nonischemic cardiomyopathy Pancreatic necrosis Pancreatic pseudocyst Pancreatitis Surgical History H/O esophagogastroduodenoscopy Endoscopic US hx of endoscopic necrosectomy 08/2020 History of dental surgery History of laparoscopic cholecystectomy Family History Grandfather (Paternal) Diabetes Grandmother (Maternal) Diabetes Social History Smoking Status: Never smoker Second Hand Exposure: No; Hx Alcohol Use: Yes Alcohol type: wine Alcohol type Comment: and pt split 1 pint of liquor/week Alcohol Intake Frequency: 4 or More x per/Week Alcohol Intake Frequency Comment: 2-3 alcoholic beverages approx q. other day Hx Substance Use: No Preferred Language: Kazakh Communication Ability: Effective Oracle Applications Developer Required: No Beliefs That Will Affect Care: None marital status: Current Living Situation: Spouse How many Children do You have: 5 Feels Safe at Home: Yes Assistive Devices: None Review of Systems A total of 10 systems reviewed and were otherwise negative Physical Exam Vital Signs Vital Signs - 24 hr 10/07/20 21:54 10/07/20 22:11 10/07/20 22:28 Temperature 36.7 C Temperature Source Temporal Artery Scan Pulse Rate 148 H Pulse Rate from SpO2 Sensor 124 H Pulse Rhythm Regular Pulse Strength Normal Respiratory Rate 20 Respiratory Effort / Characteristics Non-Labored Spontaneous Respiratory Depth Normal Blood Pressure 117/85 139/102 H Blood Pressure Mean 95 108 Blood Pressure Position Sitting Pulse Oximetry 100 100 98 Oxygen Delivery Method Room Air Room Air Sepsis Recent Fever Within 48 Hours No Sepsis New/Unexplained Change in Mental Status N/A Sepsis Action Taken by Nursing No Action Required 10/07/20 22:30 10/07/20 22:31 10/07/20 23:30 Temperature Temperature Source Pulse Rate 117 H 114 H 120 H Pulse Rate from SpO2 Sensor 116 H 119 H Pulse Rhythm Pulse Strength Respiratory Rate 17 18 16 Respiratory Effort / Characteristics Respiratory Depth Blood Pressure 124/99 124/90 Blood Pressure Mean 103 100 Blood Pressure Position Pulse Oximetry 99 99 98 Oxygen Delivery Method Sepsis Recent Fever Within 48 Hours Sepsis New/Unexplained Change in Mental Status Sepsis Action Taken by Nursing 10/08/20 00:22 10/08/20 00:30 10/08/20 01:00 Temperature Temperature Source Pulse Rate 135 H 128 H 136 H Pulse Rate from SpO2 Sensor 135 H 120 H 136 H Pulse Rhythm Pulse Strength Respiratory Rate 19 19 17 Respiratory Effort / Characteristics Respiratory Depth Blood Pressure 136/97 135/96 137/93 Blood Pressure Mean 116 112 117 Blood Pressure Position Pulse Oximetry 96 95 93 Oxygen Delivery Method Room Air Room Air Sepsis Recent Fever Within 48 Hours Sepsis New/Unexplained Change in Mental Status Sepsis Action Taken by Nursing 10/08/20 01:01 Temperature Temperature Source Pulse Rate 156 H Pulse Rate from SpO2 Sensor 155 H Pulse Rhythm Pulse Strength Respiratory Rate 24 Respiratory Effort / Characteristics Respiratory Depth Blood Pressure Blood Pressure Mean Blood Pressure Position Pulse Oximetry 95 Oxygen Delivery Method Sepsis Recent Fever Within 48 Hours Sepsis New/Unexplained Change in Mental Status Sepsis Action Taken by Nursing VITALS: Vitals are noted on the nurse's note and reviewed by myself. Vital signs stable. GENERAL: White female anxious appearing with a EtOH odor SKIN: Capillary reflex less than 2 seconds. HEENT: Normocephalic. PERRLA. EOMI. Nares patent. Mucous membranes moist. Neck is supple without nuchal rigidity. HEART: Tachycardic rate and rhythm LUNGS: Clear to auscultation bilaterally without wheezes, rales or rhonchi. No retractions or accessory muscle use. ABDOMEN: Positive bowel sounds x 4. Normal tympanic percussion. Soft, tender to palpation upper abdomen, without masses or organomegaly. Mccullough sign negative. No guarding or rebound tenderness. No CVA tenderness MUSCULOSKELETAL: No gross musculoskeletal defects. NEURO: Patient was alert and oriented to person place and time. No focal neurological deficits. Course Administered Medications Potassium Chloride (K Derek / Wtr) 10 meq in 100 mls @ 100 mls/hr IV Q1H [facility] Stop: 10/08/20 01:29 Last Admin: 10/07/20 23:44 Dose: 100 mls/hr Documented by: [id number] Multivitamins 10 ml/ Thiamine HCl 100 mg/ Folic Acid 1 mg/Potassium Chloride 40 meq/Sodium Chloride 1,031.2 mls @ 250 mls/hr IV .Q4H8M STA Stop: 10/08/20 03:50 Last Admin: 10/08/20 00:51 Dose: 250 mls/hr Documented by: [id number] Magnesium Sulfate/Dextrose (Magnesium Sulfate / D5w) 1 gm in 100 mls @ 50 mls/hr IV Q2H STA Stop: 10/08/20 01:42 Last Admin: 10/08/20 00:52 Dose: 50 mls/hr Documented by: [id number] Discontinued Medications Chlordiazepoxide HCl (Chlordiazepoxide Hcl 25 Mg Cap) 50 mg PO NOW ONE Stop: 10/07/20 23:18 Last Admin: 10/07/20 23:43 Dose: 50 mg Documented by: [id number] Fentanyl Citrate (Fentanyl Citrate 100 Mcg/2 Ml Vial) 25 mcg IV NOW STA Stop: 10/08/20 00:25 Last Admin: 10/08/20 00:49 Dose: 25 mcg Documented by: [id number] Sodium Chloride (Nss 1000ml) 1,000 mls @ 999 mls/hr IV .Q1H1M ONE Stop: 10/07/20 23:01 Last Infusion: 10/07/20 23:47 Dose: 0 mls/hr Documented by: [id number] Admin: 10/07/20 22:27 Dose: 999 mls/hr Documented by: [id number] Lorazepam (Ativan) 1 mg in 2 mls @ 2 mls/min IV NOW STA Stop: 10/07/20 23:15 Last Admin: 10/07/20 23:19 Dose: 2 mls/min Documented by: [id number] Sodium Chloride (Nss 1000ml) 1,000 mls @ 999 mls/hr IV .Q1H1M ONE Stop: 10/08/20 00:14 Last Admin: 10/07/20 23:43 Dose: 999 mls/hr Documented by: [id number] Lorazepam (Ativan) 1 mg in 2 mls @ 2 mls/min IV NOW STA Stop: 10/07/20 23:18 Last Admin: 10/08/20 00:19 Dose: Not Given Documented by: [id number] Morphine Sulfate (Morphine Sulfate 4 Mg/Ml 1 Ml Carp\Vial) 4 mg IV NOW STA Stop: 10/07/20 22:55 Last Admin: 10/07/20 22:59 Dose: 4 mg Documented by: [id number] Ondansetron HCl (Ondansetron Inj 2 Mg/Ml 2 Ml Vial) 4 mg IV NOW STA Stop: 10/07/20 22:56 Last Admin: 10/07/20 22:59 Dose: 4 mg Documented by: [id number] Oxycodone HCl (Oxycodone Hcl Ir 5 Mg Tab (Immediate Release)) Confirm Administered Dose 5 mg .ROUTE .STK-MED ONE Stop: 10/08/20 00:16 Last Admin: 10/08/20 00:18 Dose: Not Given Documented by: [id number] Potassium Chloride (Potassium Chloride 20 Meq/15 Ml Udc) 40 meq PO NOW STA Stop: 10/07/20 23:48 Last Admin: 10/08/20 00:49 Dose: 40 meq Documented by: [id number] Medical Decision Making Medical Records Attestation: I reviewed the patient's medical records. Home Medications Current Medication List: was personally reviewed by me Laboratory Data Attestation: I reviewed the patient's lab results. Result diagrams: 10/07/20 22:21 10/07/20 22:21 Lab Results 10/07/20 10/07/20 10/07/20 Range/Units 22:21 22:21 22:21 WBC 11.20 H (4.8-10.8) K/uL RBC 4.20 (4.2-5.4) M/uL Hgb 13.9 (12.0-16.0) g/dL Hct 40.8 (37-47) % MCV 97.1 (80-100) fL MCH 33.1 (25-34) pg MCHC 34.1 (32-36) g/dL RDW Std Deviation 56.5 H (36.4-46.3) fL RDW Coeff of Hanna 15.9 H (11.5-14.5) % Plt Count 559 H (130-400) K/uL MPV 9.3 (7.4-10.4) fL Immature Gran % (Auto) 0.2 % Neut % (Auto) 81.7 % Lymph % (Auto) 12.6 % Placer % (Auto) 5.3 % Eos % (Auto) 0.0 % Baso % (Auto) 0.2 % Neut # (Auto) 9.16 H (1.4-6.5) K/uL Lymph # (Auto) 1.41 (1.2-3.4) K/uL Placer # (Auto) 0.59 (0.11-0.59) K/uL Eos # (Auto) 0.00 (0-0.5) K/uL Baso # (Auto) 0.02 (0-0.2) K/uL Immature Gran # (Auto) 0.02 (0.00-0.02) K/uL PT (9.0-12.0) Seconds INR (0.9-1.1) APTT (21.0-31.0) Seconds PTT Ratio Sodium 137 (136-145) mmol/L Potassium 2.4 L* (3.5-5.1) mmol/L Chloride 93 L (98-107) mmol/L Carbon Dioxide 28 (21-32) mmol/L Anion Gap 16.0 H (3-11) BUN 8 (7-18) mg/dl Creatinine 0.93 (0.6-1.2) mg/dl Est Cr Clr Drug Dosing 65.9 ml/min Est GFR ( Amer) 88.5 Est GFR (Non-Af Amer) 76.3 BUN/Creatinine Ratio 8.3 L (10-20) Glucose 155 H (70-99) mg/dl Calcium 8.3 L (8.5-10.1) mg/dl Magnesium 1.2 L (1.8-2.4) mg/dl Total Bilirubin 0.9 (0.2-1) mg/dl AST 259 H (15-37) U/L ALT 84 H (12-78) U/L Alkaline Phosphatase 372 H (45-117) U/L Troponin I 0.165 H* (0-0.045) ng/ml Total Protein 8.2 (6.4-8.2) gm/dl Albumin 3.1 L (3.4-5.0) gm/dl Globulin 5.1 H (2.5-4.0) gm/dl Albumin/Globulin Ratio 0.6 L (0.9-2) Lipase 201 (73-393) U/L Procalcitonin (0-0.5) ng/ml HCG, Qual (Negative) Ethyl Alcohol mg/dL 134.5 H (0-3) mg/dl SARS-CoV-2 Ag (Rapid) (Negative) 10/07/20 10/07/20 10/07/20 Range/Units 22:21 22:21 22:23 WBC (4.8-10.8) K/uL RBC (4.2-5.4) M/uL Hgb (12.0-16.0) g/dL Hct (37-47) % MCV (80-100) fL MCH (25-34) pg MCHC (32-36) g/dL RDW Std Deviation (36.4-46.3) fL RDW Coeff of Hanna (11.5-14.5) % Plt Count (130-400) K/uL MPV (7.4-10.4) fL Immature Gran % (Auto) % Neut % (Auto) % Lymph % (Auto) % Placer % (Auto) % Eos % (Auto) % Baso % (Auto) % Neut # (Auto) (1.4-6.5) K/uL Lymph # (Auto) (1.2-3.4) K/uL Placer # (Auto) (0.11-0.59) K/uL Eos # (Auto) (0-0.5) K/uL Baso # (Auto) (0-0.2) K/uL Immature Gran # (Auto) (0.00-0.02) K/uL PT (9.0-12.0) Seconds INR (0.9-1.1) APTT 23.8 (21.0-31.0) Seconds PTT Ratio 0.9 Sodium (136-145) mmol/L Potassium (3.5-5.1) mmol/L Chloride (98-107) mmol/L Carbon Dioxide (21-32) mmol/L Anion Gap (3-11) BUN (7-18) mg/dl Creatinine (0.6-1.2) mg/dl Est Cr Clr Drug Dosing ml/min Est GFR ( Amer) Est GFR (Non-Af Amer) BUN/Creatinine Ratio (10-20) Glucose (70-99) mg/dl Calcium (8.5-10.1) mg/dl Magnesium (1.8-2.4) mg/dl Total Bilirubin (0.2-1) mg/dl AST (15-37) U/L ALT (12-78) U/L Alkaline Phosphatase (45-117) U/L Troponin I (0-0.045) ng/ml Total Protein (6.4-8.2) gm/dl Albumin (3.4-5.0) gm/dl Globulin (2.5-4.0) gm/dl Albumin/Globulin Ratio (0.9-2) Lipase (73-393) U/L Procalcitonin 0.08 (0-0.5) ng/ml HCG, Qual Negative (Negative) Ethyl Alcohol mg/dL (0-3) mg/dl SARS-CoV-2 Ag (Rapid) (Negative) 10/07/20 10/08/20 Range/Units 22:23 Unknown WBC (4.8-10.8) K/uL RBC (4.2-5.4) M/uL Hgb (12.0-16.0) g/dL Hct (37-47) % MCV (80-100) fL MCH (25-34) pg MCHC (32-36) g/dL RDW Std Deviation (36.4-46.3) fL RDW Coeff of Hanna (11.5-14.5) % Plt Count (130-400) K/uL MPV (7.4-10.4) fL Immature Gran % (Auto) % Neut % (Auto) % Lymph % (Auto) % Placer % (Auto) % Eos % (Auto) % Baso % (Auto) % Neut # (Auto) (1.4-6.5) K/uL Lymph # (Auto) (1.2-3.4) K/uL Placer # (Auto) (0.11-0.59) K/uL Eos # (Auto) (0-0.5) K/uL Baso # (Auto) (0-0.2) K/uL Immature Gran # (Auto) (0.00-0.02) K/uL PT 12.2 H (9.0-12.0) Seconds INR 1.2 H (0.9-1.1) APTT (21.0-31.0) Seconds PTT Ratio Sodium (136-145) mmol/L Potassium (3.5-5.1) mmol/L Chloride (98-107) mmol/L Carbon Dioxide (21-32) mmol/L Anion Gap (3-11) BUN (7-18) mg/dl Creatinine (0.6-1.2) mg/dl Est Cr Clr Drug Dosing ml/min Est GFR ( Amer) Est GFR (Non-Af Amer) BUN/Creatinine Ratio (10-20) Glucose (70-99) mg/dl Calcium (8.5-10.1) mg/dl Magnesium (1.8-2.4) mg/dl Total Bilirubin (0.2-1) mg/dl AST (15-37) U/L ALT (12-78) U/L Alkaline Phosphatase (45-117) U/L Troponin I (0-0.045) ng/ml Total Protein (6.4-8.2) gm/dl Albumin (3.4-5.0) gm/dl Globulin (2.5-4.0) gm/dl Albumin/Globulin Ratio (0.9-2) Lipase (73-393) U/L Procalcitonin (0-0.5) ng/ml HCG, Qual (Negative) Ethyl Alcohol mg/dL (0-3) mg/dl SARS-CoV-2 Ag (Rapid) Negative (Negative) Imaging Data Attestation: I personally reviewed and interpreted this imaging study as follows: MDM Narrative Prior records/ancillary studies reviewed. Triage Nursing notes reviewed. The patient's history was concerning for abdominal pain. Differential diagnosis: Etiologies such as appendicitis, diverticulitis, PUD, biliary pathology, UTI, pancreatitis, obstruction, mesenteric ischemia, aortic pathology, infections, inflammatory bowel disease, renal colic, as well as others were entertained. Physical examination findings: As above. ER treatment provided: An order was placed for continuous cardiac monitoring. The monitor shows a rate of 80-1 60 with a sinus rhythm. IV fluids, Ativan, morphine, Zofran, Librium, potassium, magnesium On reassessment the patient felt better. Diagnostics interpreted by me: ECG: Ordered for tachycardia EKG: Normal sinus, minimal ST depression in lateral leads, rate of 113. EKG compared to prior EKG with no acute changes noted. Impression sinus tachycardia with ST depressions in the lateral leads possibly rate dependent interpreted by myself I think arrhythmia is unlikely. EKG shows normal sinus rhythm with no interval abnormalities such as QT prolongation or WPW. There are no findings to suggest Brugada syndrome. Cardiac monitoring in the emergency department reveals no tachycardic or bradycardic dysrhythmia. Hypertrophic cardiomyopathy was considered but there are no clear historical elements pointing toward this. EKG is not suggestive. The QRS voltage is not extremely large and there are no suggestive Q waves. EKG #2 ordered for tachycardia EKG: Normal sinus, normal and was, minimal ST depression in lateral leads, rate of 133. Impression sinus tachycardia with persistent ST depression in the lateral leads interpreted myself I think arrhythmia is unlikely. EKG shows normal sinus rhythm with no interval abnormalities such as QT prolongation or WPW. There are no findings to suggest Brugada syndrome. Cardiac monitoring in the emergency department reveals no tachycardic or bradycardic dysrhythmia. Hypertrophic cardiomyopathy was considered but there are no clear historical elements pointing toward this. EKG is not suggestive. The QRS voltage is not extremely large and there are no suggestive Q waves. The labs revealed leukocytosis, elevated troponin Hypokalemia, hypomagnesia Imaging studies: Chest x-ray with no acute consolidation, pneumothorax or free air per my interpretation Consultation: A consultation was placed with the hospitalist, . The case was discussed and diagnostics were reviewed. The patient was evaluated in the ER for further treatment. Exam and history seem consistent with concerns for pancreatitis with elevated troponin severe abdominal pain and nausea vomiting. Lipase was normal. This could be normal because it is early with onset of symptoms. Patient's troponin is elevated. EKG is unchanged from prior. She is medicated as above. Medicine was consulted. She was admitted to the medicine service. By the evaluation outlined above emergent etiologies such as appendicitis, diverticulitis, PUD, biliary pathology, UTI, obstruction, mesenteric ischemia, aortic pathology, inflammatory bowel disease, renal colic, as well as others were deemed relatively unlikely. The pt informed about the findings as listed above. All questions were answered and pleased with the treatment. The chart was completed utilizing [employer] Speech voice recognition software. Grammatical errors, random word insertions, pronoun errors, and incomplete sentences are an occassional consequence of this system due to software limitations, ambient noise, and hardware issues. Any formal questions or concerns about the content, text, or information contained within the body of this dictation should be directly addressed to the physician client account assistant for clarification. Impression & Plan Abdominal pain, Hypomagnesemia, Elevated troponin, Acute hypokalemia Discharge Plan Visit Data Chief Complaint: Abdominal Pain Stated Complaint: PANCREATITIS, ABD PAIN ED Provider: Lonnie Lee ED Midlevel Provider: Linda Self Discharge Problem: Abdominal pain, Hypomagnesemia, Elevated troponin, Acute hypokalemia Patient Disposition: Admitted As Inpatient Condition: Fair Forms Stand Alone Forms: My [facility] Prescriptions Prescriptions: No Action multivitamin Tablet 1 tab PO QAM RF: 0 calcium carbonate [Tums Extra Strength Smoothies] 300 mg (750 mg) tablet,chewable 2 tab PO TID RF: 0 magnesium 250 mg Tablet 250 mg PO QAM RF: 0 folic acid 1 mg tablet 1 mg PO DAILY RF: 0 thiamine HCl (vitamin B1) [Vitamin B-1] 100 mg Tablet 100 mg PO QAM Qty: 30 RF: 0 potassium chloride [Klor-Con M20] 20 mEq Tablet,Er Particles/Crystals 40 meq PO DAILY Qty: 14 RF: 0 Referrals Referrals: Peterson Lr MD [Primary Care Provider] -
[2020-10-08] MEDS ORDERED: cloNIDine HCL 0.1 MG TAB PO STA (01:25)
[2020-10-08] MEDS ORDERED: METOPROLOL TARTRATE 1 MG/ML VIAL IV STA ×2 (01:35→05:40)
[2020-10-08] MEDS ORDERED: PROMETHAZINE HCL 12.5 MG in SODIUM CHLORIDE 0.9% 50 ML IV STA (01:43)
[2020-10-08] MEDS: POTASSIUM CHLORIDE / WTR 10 MEQ/100 ML PLCT IV SCH (01:45)
[2020-10-08] MEDS ORDERED: PROMETHAZINE 12.5 MG/50.5 ML BAG IV STA (01:52)
[2020-10-08] MEDS ORDERED: OPTIRAY 320 125ml IV ONE (02:30)
[2020-10-08] MEDS: oxyCODONE HCL IR 5 MG TAB (IMMEDIATE RELEASE) PO PRN ×4 (02:39→20:16)
[2020-10-08] MEDS ORDERED: FAMOTIDINE 20MG IV PUSH 20 MG/5 ML SYR IV STA (02:51)
[2020-10-08] MEDS ORDERED: PANTOprazole 40 MG TAB PO STA (02:51)
[2020-10-08] MEDS ORDERED: FAMOTIDINE 20MG/5ML IV PUSH IV ONE (03:04)
--- NOTE | 2020-10-08 03:07 | History & Physical Report ---
Date of Service October 08, 2020 Assessment & Plan (1) Tachycardia: Multifactorial : Abdominal pain secondary to recurrent alcoholic pancreatitis (probably early given normal serum lipase), esophagitis on CT, complicated UTI (possible sepsis) Hypokalemia hypomagnesemia Incipient alcohol withdrawal Troponin elevation secondary to tachycardia nonischemic cardiomyopathy (EF 55 to 60 TTE 2019), patient on the dry side HTN, not currently on meds history pancreatic pseudocyst/necrosis status post endoscopic necrosectomy narcotic addiction as per records Hyperglycemia rule out DM Anxiety/depression, currently not on medications. Chronic anemia, hemoglobin better than baseline secondary to hemoconcentration PCU Judicious narcotic use given history narcotic addiction PPI for esophagitis IVF, bowel rest for recurrent pancreatitis Replace electrolytes JANUSZ S, DT precautions Follow troponin Initiate beta-penny given tachycardia, history cardiomyopathy as per records Check hemoglobin A1c Psych consult Re: Suboptimal anxiety/depression DVT prophylaxis per Lovenox subcu Full code Text document was generated using [employer] voice recognition software. It may contain grammatical or spelling errors. Kindly contact undersigned for clarification of any documentation item in question. History of Present Illness Chief Complaint: Abdominal pain Primary Care Provider: Peterson Lr MD History obtained from patient and records. Medical history significant for nonischemic cardiomyopathy (EF 55 to 60 TTE 2019), HTN, recurrent pancreatitis, history pancreatic pseudocyst/necrosis status post endoscopic necrosectomy, narcotic addiction as per records, chronic anemia (baseline hemoglobin 10-11), alcohol abuse. Recent confinement 2 weeks ago for recurrent alcoholic pancreatitis Yesterday patient had a bottle of wine after being clean since discharge from the hospital. Citing stress from relationship with . Depressed but denies suicidality. Drinking helps with her anxiety as per patient. Patient later noted achy epigastric discomfort, poor appetite similar to pancreatitis attack. No fever, no chills. Shortness of breath and palpitations. No actual chest pain. Patient consulted ER for worsening discomfort. 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 Allergies Allergy/AdvReac Type Severity Reaction Status Date / Time tramadol AdvReac Severe SEIZURES Verified 10/07/20 23:34 gabapentin AdvReac Hallucinati Verified 10/07/20 23:34 ng ketorolac [From Toradol] AdvReac Unknown Verified 10/07/20 23:34 Home Medications Medication Instructions Recorded Confirmed Type thiamine HCl (vitamin B1) [Vitamin 100 mg PO QAM #30 tab 06/14/20 10/07/20 Rx B-1] calcium carbonate [Tums Extra 2 tab PO TID 08/22/20 10/07/20 History Strength Smoothies] magnesium 250 mg PO QAM 08/22/20 10/07/20 History multivitamin 1 tab PO QAM 08/22/20 10/07/20 History potassium chloride [Klor-Con M20] 40 meq PO DAILY #14 tab 09/25/20 10/07/20 Rx folic acid 1 mg PO DAILY 10/07/20 10/07/20 History Past Med/Surg History Medical History Alcohol abuse Anxiety History of narcotic addiction Hypertension Migraine Nonischemic cardiomyopathy Pancreatic necrosis Pancreatic pseudocyst Pancreatitis Surgical History H/O esophagogastroduodenoscopy Endoscopic US hx of endoscopic necrosectomy 08/2020 History of dental surgery History of laparoscopic cholecystectomy Family History Grandfather (Paternal) Diabetes Grandmother (Maternal) Diabetes Social History Smoking Status: Never smoker Second Hand Exposure: No; Do You Dip or Chew Tobacco: No; Tobacco Cessation Education Requested by Patient: No Hx Alcohol Use: Yes Alcohol type: wine Alcohol type Comment: and pt split 1 pint of liquor/week Alcohol Intake Frequency: 4 or More x per/Week Alcohol Intake Frequency Comment: 2-3 alcoholic beverages approx q. other day Hx Substance Use: Yes Prescribed Medications: Painkillers Preferred Language: Brazilian Communication Ability: Effective Bellman Captain Required: No Beliefs That Will Affect Care: None marital status: Current Living Situation: Family How many Children do You have: 5 Other Information That Helps Us Care for You: No Feels Safe at Home: Yes Safety Concerns: Feels Safe At This Time Assistive Devices: Glasses Review of Systems Review of Systems: As per HPI, all 10 systems reviewed, all other ROS negative Physical Exam Physical Exam: GENERAL: uncomfortable, tearful, no respiratory distress SKIN: Normal color, warm HEENT: [place] palpebral conjunctivae, no ptosis, dry buccal mucosa NECK : Supple, no tenderness CHEST : Decreased breath sounds , no tenderness HEART : Tachycardic , no obvious murmurs ABDOMEN: Some distention, epigastric tenderness EXTREMITIES : No LE swelling/tenderness, no other conspicuous deformities noted NEUROLOGIC : Coherent, no facial asymmetry, no other gross focality Results & Data Results & Data ([facility]) Vital Signs (Past 12 Hours) Vital Signs Temp Pulse Resp BP Pulse Ox 10/08/20 03:00 144 H 19 118/84 94 10/08/20 02:31 96 10/08/20 02:30 127/96 95 10/08/20 02:15 95 10/08/20 01:31 127 H 16 94 10/08/20 01:30 128 H 16 141/90 H 94 10/08/20 01:01 156 H 24 95 10/08/20 01:00 136 H 17 137/93 93 10/08/20 00:30 128 H 19 135/96 95 10/08/20 00:22 135 H 19 136/97 96 10/07/20 23:30 120 H 16 124/90 98 10/07/20 22:31 114 H 18 99 10/07/20 22:30 117 H 17 124/99 99 10/07/20 22:28 98 10/07/20 22:11 139/102 H 100 10/07/20 21:54 36.7 C 148 H 20 117/85 100 Laboratory Results Laboratory Results WBC 11.20 K/uL (4.8-10.8) H 10/07/20 22:21 RBC 4.20 M/uL (4.2-5.4) 10/07/20 22:21 Hgb 13.9 g/dL (12.0-16.0) 10/07/20 22:21 Hct 40.8 % (37-47) 10/07/20 22:21 MCV 97.1 fL (80-100) 10/07/20 22:21 MCH 33.1 pg (25-34) 10/07/20 22:21 MCHC 34.1 g/dL (32-36) 10/07/20 22:21 RDW Std Deviation 56.5 fL (36.4-46.3) H 10/07/20 22:21 RDW Coeff of Hanna 15.9 % (11.5-14.5) H 10/07/20 22: Plt Count 559 K/uL (130-400) H 10/07/20 22:21 MPV 9.3 fL (7.4-10.4) 10/07/20 22:21 Immature Gran % (Auto) 0.2 % 10/07/20 22:21 Neut % (Auto) 81.7 % 10/07/20 22:21 Lymph % (Auto) 12.6 % 10/07/20 22:21 [place] % (Auto) 5.3 % 10/07/20 22:21 Eos % (Auto) 0.0 % 10/07/20: Baso % (Auto) 0.2 % 10/07/20: Neut # (Auto) 9.16 K/uL (1.4-6.5) H 10/07/20 22:21 Lymph # (Auto) 1.41 K/uL (1.2-3.4) 10/07/20 22:21 [place] # (Auto) 0.59 K/uL (0.11-0.59) 10/07/20 22:21 Eos # (Auto) 0.00 K/uL (0-0.5) 10/07/20 22:21 Baso # (Auto) 0.02 K/uL (0-0.2) 10/07/20 22:21 Immature Gran # (Auto) 0.02 K/uL (0.00-0.02) 10/07/20 22: PT 12.2 Seconds (9.0-12.0) H 10/07/20 22:23 INR 1.2 (0.9-1.1) H 10/07/20 22:23 APTT 23.8 Seconds (21.0-31.0) 10/07/20 22: PTT Ratio 0.9 10/07/20 22:23 Sodium 137 mmol/L (136-145) 10/07/20 22:21 Potassium 2.4 mmol/L (3.5-5.1) L* 10/07/20 22: Chloride 93 mmol/L (98-107) L 10/07/20 22:21 Carbon Dioxide 28 mmol/L (21-32) 10/07/20 22:21 Anion Gap 16.0 (3-11) H 10/07/20 22:21 BUN 8 mg/dl (7-18) 10/07/20 22:21 Creatinine 0.93 mg/dl (0.6-1.2) 10/07/20 22:21 Est Cr Clr Drug Dosing 65.9 ml/min 10/07/20 22:21 Est GFR ( Amer) 88.5 10/07/20 22: Est GFR (Non-Af Amer) 76.3 10/07/20 22:21 BUN/Creatinine Ratio 8.3 (10-20) L 10/07/20 22:21 Glucose 155 mg/dl (70-99) H 10/07/20 22:21 Calcium 8.3 mg/dl (8.5-10.1) L 10/07/20 22: Magnesium 1.2 mg/dl (1.8-2.4) L 10/07/20 22:21 Total Bilirubin 0.9 mg/dl (0.2-1) 10/07/20 22:21 AST 259 U/L (15-37) H 10/07/20 22:21 ALT 84 U/L (12-78) H 10/07/20 22:21 Alkaline Phosphatase 372 U/L (45-117) H 10/07/20 22:21 Troponin I 0.165 ng/ml (0-0.045) H* 10/07/20 22:21 Total Protein 8.2 gm/dl (6.4-8.2) 10/07/20 22: Albumin 3.1 gm/dl (3.4-5.0) L 10/07/20 22:21 Globulin 5.1 gm/dl (2.5-4.0) H 10/07/20 22:21 Albumin/Globulin Ratio 0.6 (0.9-2) L 10/07/20 22:21 Lipase 201 U/L (73-393) 10/07/20 22:21 Procalcitonin 0.08 ng/ml (0-0.5) 10/07/20 22:21 HCG, Qual Negative (Negative) 10/07/20 22:21 Ethyl Alcohol mg/dL 134.5 mg/dl (0-3) H 10/07/20 22:21 SARS-CoV-2 Ag (Rapid) Negative (Negative) 10/08/[address] chest initial read: No acute pulmonary emboli. No consolidation. No pleural effusion or pneumothorax. Severe hepatic steatosis. Hiatal hernia, distal esophagitis. Circular radiopaque surgical device lumen stomach. EKG as per my interpretation rate 115, sinus tachycardia, normal axis, T wave abnormalities septal leads
[2020-10-08 03:54] LABS: Appearance Urine Clear (Clear); Bilirubin Urine Negative (Negative); Blood Urine Trace (Negative); Color Urine Yellow; Epithelial Cell Urine Auto >30 /lpf (0-5); Glucose Urine UA Negative (Negative); Ketones Urine Negative (Negative); Leukocyte Esterase Urine Negative (Negative); Nitrite Urine Positive (Negative); RBC Urine Automated 0-4 /hpf (0-4); Specific Gravity Urine > 1.045 (1.000-1.030); Urobilinogen Urine Negative (Negative)
[2020-10-08 04:10] LABS: Amphetamines+Metham, Urine Neg (Neg); Barbiturates, Urine Neg (Neg); Benzodiazepine, Urine Neg (Neg); Cocaine, Urine Neg (Neg); MDMA (Ecstacy), Urine Neg (Neg); Methadone, Urine Neg (Neg); Opiate, Urine Pos (Neg); Phencyclidine, Urine Neg (Neg)
[2020-10-08 04:28] LABS: Protein Urine Trace (Negative); Sulfosalicylic Acid Urine Positive (Negative)
[2020-10-08 04:30] LABS: Cast Urine Automated 0 /lpf (0-5)
[2020-10-08 04:31] LABS: Bacteria Urine Automated 2+ (Negative); Mucus Urine Present (None Prsent)
[2020-10-08] MEDS ORDERED: chlordiazePOXIDE ALCOHOL WITHDRAWL 25MG PO STA (04:34)
[2020-10-08] MEDS ORDERED: PROMETHAZINE HCL 12.5 MG in SODIUM CHLORIDE 0.9% 50 ML IV PRN (04:34)
[2020-10-08] MEDS ORDERED: POTASSIUM CHLORIDE CRTAB 20 MEQ TABCR PO STA (04:47)
[2020-10-08] MEDS: MoRPHine SULFATE 4 MG/ML 1 ML CARP\\VIAL IV PRN ×6 (04:53→22:49)
[2020-10-08] MEDS ORDERED: CEFEPIME CONSULT ACTIVE PRN (05:04)
[2020-10-08 05:41] LABS: Basophils # (auto) 0.06 K/uL (0-0.2); Basophils % (auto) 0.5 %; Eosinophils # (auto) 0.01 K/uL (0-0.5); Eosinophils % (auto) 0.1 %; Hematocrit (blood only) 38.3 % (37-47); Hemoglobin 12.5 g/dL (12.0-16.0); Immature Granulocytes # (auto) 0.02 K/uL (0.00-0.02); Immature Granulocytes % (auto) 0.2 %; Lymphocytes # (auto) 1.49 K/uL (1.2-3.4); Lymphocytes % (auto) 12.7 %; Mean Corpuscular Hemoglobin 32.6 pg (25-34); Mean Corpuscular Hgb Conc 32.6 g/dL (32-36); Mean Corpuscular Volume 99.7 fL (80-100); Mean Platelet Volume 9.1 fL (7.4-10.4); Monocytes # (auto) 0.58 K/uL (0.11-0.59); Neutrophils # (auto) 9.54 K/uL (1.4-6.5); Neutrophils % (auto) 81.5 %; Platelet Count 444 K/uL (130-400); RDW Coefficient of Variation 16.3 % (11.5-14.5); RDW Standard Deviation 59.6 fL (36.4-46.3); Red Blood Count 3.84 M/uL (4.2-5.4)
[2020-10-08] MEDS ORDERED: ACETAMINOPHEN 65 ML IV ONE (06:00)
[2020-10-08] MEDS: LORazepam 1 MG/2 ML VIAL IV PRN ×3 (06:11→20:16)
[2020-10-08] MEDS: LACTATED RINGER'S 1,000 ML IV SCH ×5 (06:13→23:46)
[2020-10-08 06:20] LABS: Albumin Level 2.4 gm/dl (3.4-5.0); BUN Creatinine Ratio 7.4 (10-20); Bilirubin Direct 0.4 mg/dl (0-0.2); Bilirubin,Total 1.1 mg/dl (0.2-1); Calcium 6.8 mg/dl (8.5-10.1); Creatinine Clr Calc Pharmacy 79.5 ml/min; Est GFR (African American) 111.2; Est GFR (Non-African American) 95.9; Magnesium 1.4 mg/dl (1.8-2.4); Potassium 3.6 mmol/L (3.5-5.1); Total Protein 6.4 gm/dl (6.4-8.2)
[2020-10-08] MEDS: CEFEPIME 2,000 MG in SYRINGE 0 ML IV SCH ×2 (06:48→17:01)
--- NOTE | 2020-10-08 07:33 | CT Scan Report ---
CT ANGIOGRAM OF THE CHEST CLINICAL HISTORY: Atypical chest pain. Dyspnea. COMPARISON STUDY: Chest x-ray dated 10/07/2020. Chest CT scans dated 07/17/2020 and 01/27/2014. Abdomi nal CT dated 09/23/2020. TECHNIQUE: Following the IV administration of 76 cc of Optiray 320, CT angiogram of the chest was pe rformed from the upper abdomen to the thoracic inlet utilizing the pulmonary embolus protocol. Images are reviewed in the axial, sagittal, and coronal planes. 3-D MIPS images are created and assessed. I V contrast was administered without complication. A dose lowering technique was utilized adhering to the principles of ALARA. CT DOSE: 220.96 mGy.cm FINDINGS: Thyroid: Imaged portions of the thyroid gland are normal in size and attenuation. Low-attenuation thy roid nodules measure up to 8 mm. Thoracic aorta: The thoracic aorta is normal in caliber and demonstrates standard 3-vessel arch anato my. No dissection is seen. Pulmonary vasculature: The pulmonary trunk is normal in caliber. There are no filling defects identif ied in main, lobar, or segmental pulmonary branches to suggest pulmonary embolus. Heart: The heart is normal in size and without pericardial effusion. Lungs and pleural spaces: Evaluation of the lung parenchyma is degraded by motion artifact. There is no airspace consolidation or pleural effusion. Scattered calcified granulomas are observed. The trach ea and central airways are clear. Mediastinum: There is no mediastinal lymphadenopathy. Ele: Clear. Axillae: There is no axillary lymphadenopathy. Upper abdomen: There is evidence of severe hepatic steatosis. A small hiatal hernia is noted. Circumf erential wall thickening is suggested in the esophagus. A cystogastrostomy device is noted in the sto mach. Infiltrative change is partially visualized in the left upper quadrant. Skeletal structures: No lytic or blastic bony lesions are seen. IMPRESSION: 1. There is no evidence of pulmonary embolus in the main, lobar, or segmental pulmonary arteries. 2. There is no airspace consolidation or pleural effusion. 3. Severe hepatic steatosis. 4. Circumferential wall thickening is suggested in the esophagus. Correlate clinically for evidence o f esophagitis. 5. A cystogastrostomy device is noted in the stomach. 6. Additional findings as above. ACT 112: Negative or not required by law. Electronically signed by: Lonnie Mcdaniel M.D. 10/08/2020 7:32 AM
--- NOTE | 2020-10-08 07:38 | XRay Report ---
XR chest 1V portable CLINICAL HISTORY: Shortness of breath. COMPARISON STUDY: Chest CT July 17, 2020. Chest radiograph July 27, 2020. FINDINGS: Lung volumes are normal. Lungs are clear. There is no pneumothorax or pleural effusion. Car diac size is normal. Mediastinal contours are normal. There is no evidence for pulmonary edema. There is mild elevation of the right hemidiaphragm. IMPRESSION: No acute cardiopulmonary findings. ACT 112: Negative or not required by law. Electronically signed by: Remi Arizmendi M.D. 10/08/2020 7:37 AM
[2020-10-08] MEDS: FOLIC ACID 1 MG TAB PO SCH (07:45)
[2020-10-08] MEDS: POTASSIUM CHLORIDE CRTAB 20 MEQ TABCR PO SCH (07:45)
[2020-10-08] MEDS: THIAMINE HCL 100 MG TAB PO SCH (07:45)
[2020-10-08] MEDS: MAGNESIUM OXIDE 400 MG TAB PO SCH (07:46)
[2020-10-08] MEDS: MULTIVITAMIN TAB PO SCH (07:46)
[2020-10-08] MEDS: CALCIUM CARBONATE 500 MG CHEWABLE TAB PO SCH ×3 (07:47→20:16)
[2020-10-08] MEDS: ENOXAPARIN INJ 40 MG/0.4 ML SYR SQ SCH (07:48)
[2020-10-08 07:50] LABS: Estimated Average Glucose 100 mg/dl; Hemoglobin A1C 5.1 % (4.5-5.6)
[2020-10-08] MEDS: MAGNESIUM SULFATE / D5W 1 GM/100 ML BAG IV SCH ×3 (08:59→10:51)
[2020-10-08] MEDS ORDERED: METOPROLOL TARTRATE 25 MG TAB PO SCH ×4 (09:00→21:00)
[2020-10-08] MEDS ORDERED: FOLIC ACID 1 MG TAB PO SCH (09:00)
[2020-10-08] MEDS ORDERED: THIAMINE HCL 100 MG TAB PO SCH (09:00)
[2020-10-08] MEDS ORDERED: LORazepam 1 MG/2 ML VIAL IV PRN (09:25)
[2020-10-08] MEDS ORDERED: MULTI-VITAMIN INFUSION 10 ML, THIAMINE HCL 100 MG, FOLIC ACID 1 MG in SODIUM CHLORIDE 0... IV ONE (09:45)
--- NOTE | 2020-10-08 10:38 | Psychiatric Consultation ---
Date of Consultation October 08, 2020 Impression / Recommendations Impression Dr. Maria Luisa Vasquez was directly involved in review and discussion of the patient's case and participated in medical decision making regarding treatment recommendations. RECOMMENDATIONS: 10/08 - Psychiatric consultation requested by hospitalist service to evaluate patient for anxiety and depression. Pt has had several medical admissions for recurrent alcoholic pancreatitis, most recent being 2 weeks ago. She is endorsing alcohol abuse and has required prn medications related to AWSS withdrawal protocol. - Pt admits to increased anxiety and depression since losing her job in 04/2020, and dealing with other stressors related to the COVID-19 pandemic. Pt admits that her alcohol use has increased since that time due to "self- medicating". Pt is agreeable with referral for outpatient dual diagnosis counseling to address the anxiety and depression symptoms as well as the alcohol use. Pt was offered referral for inpatient D&A rehab or IOP program, but she declined. Pt states her is supportive. - Pt did report interest in medications to address her anxiety and depression. She was provided with patient hand-outs of sertraline, fluoxetine, and escitalopram. Pt was informed that initiating antidepressant medication at this point in her admission is not advised, due to risk of GI upset and risk of lowering seizure threshold. Pt has scored on the AWSS protocol and is already at risk of seizure due to concern for alcohol withdrawal. Pt was informed we would follow-up with her about medication options when she is more stable medically. - Would avoid prescribing medications with significant abuse potential on discharge, given alcohol abuse, addiction history and patient not yet demonstrating active engagement in D&A treatment. - Pt denies SI/HI, symptoms of acute psychosis or any other mood/safety concerns. No indication for inpatient psychiatric treatment at this time. Appreciate the opportunity to participate in the care of this patient. Please reach out to our service with any additional questions or updates. (1) Alcohol abuse: (2) Anxiety: (3) Depression: Depression Type: unspecified Qualified Code(s): F32.9 - Major depressive disorder, single episode, unspecified Psych History Identifying Data 40-year-old female admitted medically on 10/08/2020 after presenting to the ED with reports of abdominal pain and tachycardia. Pt has a reported history of alcohol abuse with recent admissions for recurrent alcoholic pancreatitis. Psychiatric consultation was requested by our hospitalist service to evaluate patient for depression and anxiety. Chief Complaint "I had started to get really bad stomach pain in June, at that time I had started drinking..." History of Present Illness Iván Palomo is a 40-year-old female admitted medically on 10/08/2020 after presenting to the ED with reports of abdominal pain and tachycardia. Pt admitted in the ED that she had been binge drinking for the past several days. She does have a history of recurrent alcoholic pancreatitis and was hospitalized at our facility two weeks ago for this. Psychiatric consultation was requested by our hospitalist team to evaluate patient for depression and anxiety. Pt is cooperative with psychiatric assessment. She admits that she presented due to intractable abdominal pain. She admits that anxiety had been elevated over the past several months but states it was very significant last evening due to learning, while in the ED herself, that her mother was being hospitalized. Pt described an episode of anxiety in the ED which was associated with muscle stiffness in her hands/finger and "my face was numb, like I was having a stroke." The patient states "my heart rate was in the, like, 150's. I was so worried." Pt admits that she had not previously dealt with significant anxiety or depression. She states "I'm someone that always analyzes everything, but I wouldn't say it was a problem before." She admits that she lost her job in 04/2020 due to COVID-19 cut-backs and has been unable to find another job, but has also been unable to collect unemployment. Pt admits to financial stress as well as increased worry about the healthy of her family and friends. She admits that this has contributed to increased alcohol use. At its worst, the patient states she was consuming a bottle of wine daily. She states "I keep coming in for pancreatitis related to drinking, and I keep saying I need to stop. I don't drink when I get home, but then I think 'well, it's been a week, I should be good' but I don't stop with one." Pt denies history of alcohol abuse prior to this summer, or history of inpatient D&A rehab stays. Pt is denying other significant substance abuse, though her H&P mentions history of narcotic addiction. Pt states that after she left the hospital 2 weeks ago, she had not had an alcoholic beverage until 2-days prior to this admission. Pt states she drank "2 glasses of wine each of those 2 days." Pt states she is interested in outpatient dual diagnosis counseling. She is also interested in discussing medication options to target her anxiety and depression. We reviewed some medication options, but it was encouraged that initiation not begin until patient is more stable medically given present GI sym ptoms and concern for withdrawal symptoms such as seizure. Pt was agreeable with this and willing to review patient education on the medications in the interim. She is aware we will initiate referrals for outpatient psychiatric treatment and will follow-up with her when she is feeling a bit better physically. Pt denied SI/HI, A/V hallucinations, signs of theodore or psychosis or other acute psychiatric symptoms. Pt denied other needs at this time. Past Psychiatric History Outpatient Services: None Previous Psych Admissions: Denied History of Previous Suicide Attempt: No Past Medication Trials: Per patient report, she initially believed she had previously been prescribed escitalopram - then believed it was actually amitriptyline and/or Topamax for migraine headaches. External medication his tory suggests previous brief prescriptions for lorazepam and hydroxyzine. Allergies Allergy/AdvReac Type Severity Reaction Status Date / Time tramadol AdvReac Severe SEIZURES Verified 10/07/20 23:34 gabapentin AdvReac Hallucinati Verified 10/07/20 23:34 ng ketorolac [From Toradol] AdvReac Unknown Verified 10/07/20 23:34 Home Medications Medication Instructions Recorded Confirmed Type thiamine HCl (vitamin B1) [Vitamin 100 mg PO QAM #30 tab 06/14/20 10/07/20 Rx B-1] calcium carbonate [Tums Extra 2 tab PO TID 08/22/20 10/07/20 History Strength Smoothies] magnesium 250 mg PO QAM 08/22/20 10/07/20 History multivitamin 1 tab PO QAM 08/22/20 10/07/20 History potassium chloride [Klor-Con M20] 40 meq PO DAILY #14 tab 09/25/20 10/07/20 Rx folic acid 1 mg PO DAILY 10/07/20 10/07/20 History Family History Denies known family history of mental health conditions. Substance Abuse History Pt denies tobacco use. Admits to history of alcohol abuse, with increase in consumption since April 2020 when she lost her job due to COVID-19 pandemic. Pt admits to consuming 2 glasses of wine a day for the past 2 days - prior to that states she had not had a drink since her last hospital admission. At its worst, the patient states she had been consuming a bottle of wine a day. Personal History Living Arrangements: Home (with and 5 children) Childhood: Describes a normal childhood - no known developmental concerns. 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) Marital Status: (second marriage for the patient ) Number Of Children: 5 young children Beliefs That Will Affect Care: None History of Legal Problems: Denied Psychological Trauma History Comment: Denied Patient History Medical History Alcohol abuse Anxiety History of narcotic addiction Hypertension Migraine Nonischemic cardiomyopathy Pancreatic necrosis Pancreatic pseudocyst Pancreatitis Surgical History H/O esophagogastroduodenoscopy Endoscopic US hx of endoscopic necrosectomy 08/2020 History of dental surgery History of laparoscopic cholecystectomy Family History Grandfather (Paternal) Diabetes Grandmother (Maternal) Diabetes Social History Smoking Status: Never smoker Second Hand Exposure: No; Do You Dip or Chew Tobacco: No; Tobacco Cessation Education Requested by Patient: No Hx Alcohol Use: Yes Alcohol type: wine Alcohol type Comment: and pt split 1 pint of liquor/week Alcohol Intake Frequency: 4 or More x per/Week Alcohol Intake Frequency Comment: 2-3 alcoholic beverages approx q. 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 Appropriately dressed in a hospital gown. Level of hygiene appears adequate. Hair is pulled back in neat ponytail, wearing corrective lenses. Eye Contact: + fair eye contact eyes appear heavy at times, patient appearing fatigued Motor Behavior: no abnormal motor movements (observed while laying in bed) Speech: normal rate/rhythm/volume of speech Affect: + depressed affect and mood congruent with affect Mood: + depressed mood and + anxious mood Thought Process: goal directed thought process and clear/coherent thought process Thought Content: reality based without delusions, + hopelessness and + guilt Suicidal Thoughts: denies suicidal thoughts, denies suicidal plan and denies suicidal intent Homicidal Thoughts: denies homicidal thoughts Hallucinations: no auditory hallucinations and no visual hallucinations Cognition: attention grossly intact and language grossly intact Estimated Intelligence: consistent with education level Insight: + fair insight Judgement: + fair judgement Vital Signs (Past 24 Hours): Last Vital Signs Temp 36.8 C 10/08/20 08:03 Pulse 126 H 10/08/20 08:03 Resp 20 10/08/20 08:03 BP 134/95 10/08/20 08:03 Pulse Ox 99 10/08/20 08:03 Review of Systems Constitutional: reports headache, weakness, fatigue Cardiovascular: reports episodes of tachycardia Respiratory: reports cough and intermittent SOB Gastrointestinal: reports nausea/abdominal pain Neurological: denied Psychiatric: denies symptoms other than stated above Total of at least 10 systems reviewed, pertinent positives as above and in HPI. Results & Data (PSY) Medications Administered Calcium Carbonate (Calcium Carbonate 500 Mg Chewable Tab) 1,000 mg PO TID [facility] Stop: 11/07/20 08:59 Last Admin: 10/08/20 07:47 Dose: 1,000 mg Documented by: [id number] Chlordiazepoxide HCl (Chlordiazepoxide Hcl 10 Mg Cap) 10 mg PO Q8H [facility] Stop: 10/08/20 22:01 Last Admin: 10/08/20 06:47 Dose: 10 mg Documented by: [id number] Enoxaparin Sodium (Enoxaparin Inj 40 Mg/0.4 Ml Syr) 40 mg SQ QAM [facility] Stop: 11/07/20 08:59 Last Admin: 10/08/20 07:48 Dose: 40 mg Documented by: [id number] Folic Acid (Folic Acid 1 Mg Tab) 1 mg PO DAILY [facility] Stop: 11/07/20 08:59 Last Admin: 10/08/20 07:45 Dose: 1 mg Documented by: [id number] Lorazepam (Ativan) 1 mg in 2 mls @ 2 mls/min IV ONE PRN; Protocol PRN Reason: EtoH Withdrawal AWSS 6-10 Stop: 11/07/20 04:33 Last Admin: 10/08/20 06:11 Dose: 2 mls/min Documented by: [id number] Lactated Ringer's (Lr) 1,000 mls @ 150 mls/hr IV .[id number] [facility] Stop: 10/09/20 04:59 Last Admin: 10/08/20 06:13 Dose: 150 mls/hr Documented by: [id number] Cefepime HCl 2,000 mg/ Syringe 20 mls @ 5 mls/min IV Q12H [facility]; Protocol Stop: 10/18/20 05:59 Last Admin: 10/08/20 06:48 Dose: 5 mls/min Documented by: [id number] Magnesium Sulfate/Dextrose (Magnesium Sulfate / D5w) 1 gm in 100 mls @ 50 mls/hr IV Q2H [facility] Stop: 10/08/20 12:59 Last Admin: 10/08/20 08:59 Dose: 50 mls/hr Documented by: [id number] Magnesium Oxide (Magnesium Oxide 400 Mg Tab) 400 mg PO [facility] Stop: 11/07/20 08:59 Last Admin: 10/08/20 07:46 Dose: 400 mg Documented by: [id number] Metoprolol Tartrate (Metoprolol Tartrate 25 Mg Tab) 25 mg PO BID [facility] Stop: 11/07/20 08:59 Last Admin: 10/08/20 09:02 Dose: 25 mg Documented by: [id number] Morphine Sulfate (Morphine Sulfate 4 Mg/Ml 1 Ml Carp\\Vial) 4 mg IV Q4H PRN PRN Reason: Pain Stop: 10/22/20 04:33 Last Admin: 10/08/20 09:05 Dose: 4 mg Documented by: [id number] Admin: 10/08/20 06:14 Dose: 4 mg Documented by: [id number] Admin: 10/08/20 04:53 Dose: 4 mg Documented by: [id number] Multivitamins (Multivitamin Tab) 1 tab PO [facility] Stop: 11/07/20 08:59 Last Admin: 10/08/20 07:46 Dose: 1 tab Documented by: [id number] Oxycodone HCl (Oxycodone Hcl Ir 5 Mg Tab (Immediate Release)) 5 - 10 mg PO QID PRN PRN Reason: Pain Stop: 10/22/20 00:07 Last Admin: 10/08/20 07:45 Dose: 10 mg Documented by: [id number] Admin: 10/08/20 02:39 Dose: 5 mg Documented by: [id number] Potassium Chloride (Potassium Chloride Crtab 20 Meq Tabcr) 40 meq PO DAILY [facility] Stop: 11/07/20 08:59 Last Admin: 10/08/20 07:45 Dose: 40 meq Documented by: [id number] Thiamine HCl (Thiamine Hcl 100 Mg Tab) 100 mg PO QAM [facility] Stop: 11/07/20 08:59 Last Admin: 10/08/20 07:45 Dose: 100 mg Documented by: [id number] Coding Level of Care Code 79961 U Intl Hosp Care Lvl 2 Diagnoses Alcohol abuse F10.10 Anxiety F41.9 Depression F32.9 Depression Type: unspecified
--- NOTE | 2020-10-08 10:48 | Gastrointestinal Consultation ---
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 - Await CTAP results - Continue IVF support - Symptomatic mgmt with analgesia PRN - Antiemetics PRN - Will plan to arrange EGD for tomorrow (for possible repeat d ebridement/clearing of stent) - NPO - Will be important for pt to maintain strict ETOH avoidance; she tells me she is considering rehab Thank you for allowing us to participate in the care of this patient. Please call with any acute changes, questions or concerns. Please see addendum below with additional recommendation from my supervising physician. (3) Pancreatic necrosis: Supervising Physician Co-Signing Physician Notes I saw and evaluated the patient. The patient has a history of alcohol abuse complicated by a history of pancreatitis and walled off pancreatic necrosis status post axios stent placement and debridement at [facility]. She was due for a follow-up upper endoscopy but it appears she failed to keep the appointment on the . He presents again with recurrent nausea vomiting and abdominal discomfort in addition alcohol intoxication Physical: No obvious distress, mild abdominal tenderness Impression: Patient with a history of a large pancreatic pseudocyst with walled off pancreatic necrosis status post axial stent placement at [facility]. The patient was due for repeat upper endoscopy with cyst debridement on the however it appears she did not show for this appointment. I did discuss the case in past with her other GI provider who asked me to try and perform it locally if possible Plan Upper endoscopy in [place] tomorrow for evaluation of the cyst and possible cyst debridement Patient needs to consider alcohol cessation History of Present Illness Reason for Consultation: abdominal pain, history of recurrent pancreatitis Requesting Physician: Gopi Hill MD Attending Physician: Gopi Mendoza MD History of Present Illness This is a 40 y/o female with PMHx ETOH abuse, recurrent pancreatitis complicated by pseudocyst and necrosis, s/p AXIOS stent placement for pancreatic drainage, and s/p endoscopic necrosectomy for clogged stent. She was to have repeat endoscopic debridement of AXIOS stent on 09/26 however pt did not have this done. She states she was feeling well up until the last 1-2 days when she states she had a bottle of wine. She then started to get upper abd pain, n/v similar to previous episodes of pancreatitis and presented to the ER. On arrival she was tachycardic, labs notable for WBC 11, lipase 200, AST 259, ALT 84, ALP 372, along with hypokalemia, hypomagnesemia, with normal tbili and HGB. CTAP is currently pending. CTA chest noting no PE; severe hepatic steatosis, circumferential wall thickening in the esophagus,and AXIOS device in the stomach. This AM feeling improved; though still having some upper abd discomfort. This AM LFTs trended down; AST 179, ALP 287 Denies current n/v, fever, jaundice. Allergies Allergy/AdvReac Type Severity Reaction Status Date / Time tramadol AdvReac Severe SEIZURES Verified 10/07/20 23:34 gabapentin AdvReac Hallucinati Verified 10/07/20 23:34 ng ketorolac [From Toradol] AdvReac Unknown Verified 10/07/20 23:34 Home Medications Medication Instructions Recorded Confirmed Type thiamine HCl (vitamin B1) [Vitamin 100 mg PO QAM #30 tab 06/14/20 10/07/20 Rx B-1] calcium carbonate [Tums Extra 2 tab PO TID 08/22/20 10/07/20 History Strength Smoothies] magnesium 250 mg PO QAM 08/22/20 10/07/20 History multivitamin 1 tab PO QAM 08/22/20 10/07/20 History potassium chloride [Klor-Con M20] 40 meq PO DAILY #14 tab 09/25/20 10/07/20 Rx folic acid 1 mg PO DAILY 10/07/20 10/07/20 History Patient History Medical History Alcohol abuse Anxiety History of narcotic addiction Hypertension Migraine Nonischemic cardiomyopathy Pancreatic necrosis Pancreatic pseudocyst Pancreatitis Surgical History H/O esophagogastroduodenoscopy Endoscopic US hx of endoscopic necrosectomy 08/2020 History of dental surgery History of laparoscopic cholecystectomy Family History Grandfather (Paternal) Diabetes Grandmother (Maternal) Diabetes Social History Smoking Status: Never smoker Second Hand Exposure: No; Do You Dip or Chew Tobacco: No; Tobacco Cessation Education Requested by Patient: No Hx Alcohol Use: Yes Alcohol type: wine Alcohol type Comment: and pt split 1 pint of liquor/week Alcohol Intake Frequency: 4 or More x per/Week Alcohol Intake Frequency Comment: 2-3 alcoholic beverages approx q. other day Hx Substance Use: Yes Prescribed Medications: Painkillers Preferred Language: Nepali Communication Ability: Effective Account Resolution Specialist Required: No Beliefs That Will Affect Care: None marital status: Current Living Situation: Family How many Children do You have: 5 Other Information That Helps Us Care for You: No Feels Safe at Home: Yes Safety Concerns: Feels Safe At This Time Assistive Devices: Glasses Review of Systems Constitutional: no fever, no chills, no body aches and no weight loss Eyes: no icterus Respiratory: no cough and no dyspnea Cardiovascular: no chest pain, no dyspnea and no edema Gastrointestinal: no nausea, no coffee ground emesis, no hematemesis, no change in stools, no diarrhea/loose stools, no blood in stools and no melena Genitourinary: no dysuria and no hematuria Integumentary: no rash and no yellowing of the skin Psychiatric: + stress, anxiety Hematologic / Lymphatic: no easy bleeding and no easy bruising Physical Exam Constitutional: WD/WN, vitals as above no acute distress Eyes: PERRL, conjunctivae normal, anicteric sclerae Respiratory: normal respiratory effort, lungs clear to auscultation Cardiovascular: Rate/Rhythm: regular rhythm and + tachycardic Extremities: no pedal edema Gastrointestinal (Abdomen): Inspection/Auscultation: abdomen normal to inspection and normal bowel sounds; abdomen not distended Percussion/Palpation: abdomen soft; no guarding mild TTP in the epigastrium, no rebound Skin: no rashes, warm and dry Psychiatric: A+Ox3, euthymic affect Results & Data ([facility]) Vital Signs (Past 12 Hours) Vital Signs Temp Pulse Pulse Resp BP BP Pulse Ox 10/08/20 08:03 36.8 C 126 H 20 134/95 99 10/08/20 07:34 37.1 C 110 H 18 130/98 96 10/08/20 07:14 122 H 10/08/20 06:23 101 H 192/102 H 10/08/20 04:59 37.6 C H 118 H 22 144/102 H 98 10/08/20 03:36 23 10/08/20 03:01 142 H 29 H 94 10/08/20 03:00 144 H 19 118/84 94 10/08/20 02:31 96 10/08/20 02:30 127/96 95 10/08/20 02:15 95 10/08/20 01:31 127 H 16 94 10/08/20 01:30 128 H 16 141/90 H 94 10/08/20 01:01 156 H 24 95 10/08/20 01:00 136 H 17 137/93 93 10/08/20 00:30 128 H 19 135/96 95 10/08/20 00:22 135 H 19 136/97 96 10/07/20 23:30 120 H 16 124/90 98 Laboratory Results 10/08/20 10/08/20 10/08/20 Range/Units Unknown Unknown Unknown WBC (4.8-10.8) K/uL RBC (4.2-5.4) M/uL Hgb (12.0-16.0) g/dL Hct (37-47) % MCV (80-100) fL MCH (25-34) pg MCHC (32-36) g/dL RDW Std Deviation (36.4-46.3) fL RDW Coeff of Hanna (11.5-14.5) % Plt Count (130-400) K/uL MPV (7.4-10.4) fL Immature Gran % (Auto) % Neut % (Auto) % Lymph % (Auto) % [place] % (Auto) % Eos % (Auto) % Baso % (Auto) % Neut # (Auto) (1.4-6.5) K/uL Lymph # (Auto) (1.2-3.4) K/uL [place]igs # (Auto) (0.11-0.59) K/uL Eos # (Auto) (0-0.5) K/uL Baso # (Auto) (0-0.2) K/uL Immature Gran # (Auto) (0.00-0.02) K/uL PT (9.0-12.0) Seconds INR (0.9-1.1) APTT (21.0-31.0) Seconds PTT Ratio Sodium (136-145) mmol/L Potassium (3.5-5.1) mmol/L Chloride (98-107) mmol/L Carbon Dioxide (21-32) mmol/L Anion Gap (3-11) BUN (7-18) mg/dl Creatinine (0.6-1.2) mg/dl Est Cr Clr Drug Dosing ml/min Est GFR ( Amer) Est GFR (Non-Af Amer) BUN/Creatinine Ratio (10-20) Glucose (70-99) mg/dl Estimat Average Glucose mg/dl Hemoglobin A1c (4.5-5.6) % Lactate (0.4-2.0) mmol/L Calcium (8.5-10.1) mg/dl Magnesium (1.8-2.4) mg/dl Total Bilirubin (0.2-1) mg/dl Direct Bilirubin (0-0.2) mg/dl AST (15-37) U/L ALT (12-78) U/L Alkaline Phosphatase (45-117) U/L Troponin I (0-0.045) ng/ml Total Protein (6.4-8.2) gm/dl Albumin (3.4-5.0) gm/dl Globulin (2.5-4.0) gm/dl Albumin/Globulin Ratio (0.9-2) Lipase (73-393) U/L Procalcitonin (0-0.5) ng/ml HCG, Qual (Negative) Urine Color Yellow Urine Appearance Clear (Clear) Urine pH 8.0 H (4.5-7.5) Ur Specific [place] > 1.045 H (1.000-1.030) Urine Protein Trace H (Negative) Urine Glucose (UA) Negative (Negative) Urine Ketones Negative (Negative) Urine Blood Trace H (Negative) Urine Nitrite Positive A (Negative) Urine Bilirubin Negative (Negative) Urine Urobilinogen Negative (Negative) Ur Leukocyte Esterase Negative (Negative) Urine WBC (Auto) 10-30 H (0-5) /hpf Urine RBC (Auto) 0-4 (0-4) /hpf U Hyaline Cast (Auto) 0 (0-5) /lpf U Epithel Cells (Auto) >30 H (0-5) /lpf Urine Bacteria (Auto) 2+ H (Negative) Urine Mucus Present A (None Prsent) Urine Opiates Screen Pos H (Neg) U Codeine Confrm GC/MS Pending Ur Morphine (GC/MS) Pending Ur Hydrocodone (GC/MS) Pending Ur Norhydrocodone Pending Ur Noroxycodone Pending Urine Oxycodone (GC/MS) Pending U Oxymorphone GC/MS Pending Ur Methadone, Qual Neg (Neg) Ur Hydromorphone (GC/MS) Pending Urine Barbiturates Neg (Neg) Ur Phencyclidine (PCP) Neg (Neg) U Amphetamin/Meth Scrn Neg (Neg) MDMA (Ecstasy) Screen Neg (Neg) U Benzodiazepines Scrn Neg (Neg) Ur Cocaine Metabolite Neg (Neg) U Marijuana (THC) Screen Neg (Neg) Drug Screen Comment Pending Ethyl Alcohol mg/dL (0-3) mg/dl SARS-CoV-2 Ag (Rapid) (Negative) 10/08/20 10/08/20 10/08/20 Range/Units Unknown 06:14 05:31 WBC (4.8-10.8) K/uL RBC (4.2-5.4) M/uL Hgb (12.0-16.0) g/dL Hct (37-47) % MCV (80-100) fL MCH (25-34) pg MCHC (32-36) g/dL RDW Std Deviation (36.4-46.3) fL RDW Coeff of Hanna (11.5-14.5) % Plt Count (130-400) K/uL MPV (7.4-10.4) fL Immature Gran % (Auto) % Neut % (Auto) % Lymph % (Auto) % [place] % (Auto) % Eos % (Auto) % Baso % (Auto) % Neut # (Auto) (1.4-6.5) K/uL Lymph # (Auto) (1.2-3.4) K/uL Meigs # (Auto) (0.11-0.59) K/uL Eos # (Auto) (0-0.5) K/uL Baso # (Auto) (0-0.2) K/uL Immature Gran # (Auto) (0.00-0.02) K/uL PT (9.0-12.0) Seconds INR (0.9-1.1) APTT (21.0-31.0) Seconds PTT Ratio Sodium (136-145) mmol/L Potassium (3.5-5.1) mmol/L Chloride (98-107) mmol/L Carbon Dioxide (21-32) mmol/L Anion Gap (3-11) BUN (7-18) mg/dl Creatinine (0.6-1.2) mg/dl Est Cr Clr Drug Dosing ml/min Est GFR ( Amer) Est GFR (Non-Af Amer) BUN/Creatinine Ratio (10-20) Glucose (70-99) mg/dl Estimat Average Glucose 100 mg/dl Hemoglobin A1c 5.1 (4.5-5.6) % Lactate 3.0 H* (0.4-2.0) mmol/L Calcium (8.5-10.1) mg/dl Magnesium (1.8-2.4) mg/dl Total Bilirubin (0.2-1) mg/dl Direct Bilirubin (0-0.2) mg/dl AST (15-37) U/L ALT (12-78) U/L Alkaline Phosphatase (45-117) U/L Troponin I (0-0.045) ng/ml Total Protein (6.4-8.2) gm/dl Albumin (3.4-5.0) gm/dl Globulin (2.5-4.0) gm/dl Albumin/Globulin Ratio (0.9-2) Lipase (73-393) U/L Procalcitonin (0-0.5) ng/ml HCG, Qual (Negative) Urine Color Urine Appearance (Clear) Urine pH (4.5-7.5) Ur Specific [place] (1.000-1.030) Urine Protein (Negative) Urine Glucose (UA) (Negative) Urine Ketones (Negative) Urine Blood (Negative) Urine Nitrite (Negative) Urine Bilirubin (Negative) Urine Urobilinogen (Negative) Ur Leukocyte Esterase (Negative) Urine WBC (Auto) (0-5) /hpf Urine RBC (Auto) (0-4) /hpf U Hyaline Cast (Auto) (0-5) /lpf U Epithel Cells (Auto) (0-5) /lpf Urine Bacteria (Auto) (Negative) Urine Mucus (None Prsent) Urine Opiates Screen (Neg) U Codeine Confrm GC/MS Ur Morphine (GC/MS) Ur Hydrocodone (GC/MS) Ur Norhydrocodone Ur Noroxycodone Urine Oxycodone (GC/MS) U Oxymorphone GC/MS Ur Methadone, Qual (Neg) Ur Hydromorphone (GC/MS) Urine Barbiturates (Neg) Ur Phencyclidine (PCP) (Neg) U Amphetamin/Meth Scrn (Neg) MDMA (Ecstasy) Screen (Neg) U Benzodiazepines Scrn (Neg) Ur Cocaine Metabolite (Neg) U Marijuana (THC) Screen (Neg) Drug Screen Comment Ethyl Alcohol mg/dL (0-3) mg/dl SARS-CoV-2 Ag (Rapid) Negative (Negative) 10/08/20 10/08/20 10/08/20 Range/Units 05:31 05:31 02:40 WBC 11.70 H (4.8-10.8) K/uL RBC 3.84 L (4.2-5.4) M/uL Hgb 12.5 (12.0-16.0) g/dL Hct 38.3 (37-47) % MCV 99.7 (80-100) fL MCH 32.6 (25-34) pg MCHC 32.6 (32-36) g/dL RDW Std Deviation 59.6 H (36.4-46.3) fL RDW Coeff of Hanna 16.3 H (11.5-14.5) % Plt Count 444 H (130-400) K/uL MPV 9.1 (7.4-10.4) fL Immature Gran % (Auto) 0.2 % Neut % (Auto) 81.5 % Lymph % (Auto) 12.7 % [place] % (Auto) 5.0 % Eos % (Auto) 0.1 % Baso % (Auto) 0.5 % Neut # (Auto) 9.54 H (1.4-6.5) K/uL Lymph # (Auto) 1.49 (1.2-3.4) K/uL [place] # (Auto) 0.58 (0.11-0.59) K/uL Eos # (Auto) 0.01 (0-0.5) K/uL Baso # (Auto) 0.06 (0-0.2) K/uL Immature Gran # (Auto) 0.02 (0.00-0.02) K/uL PT (9.0-12.0) Seconds INR (0.9-1.1) APTT (21.0-31.0) Seconds PTT Ratio Sodium 142 (136-145) mmol/L Potassium 3.6 D (3.5-5.1) mmol/L Chloride 105 (98-107) mmol/L Carbon Dioxide 28 (21-32) mmol/L Anion Gap 9.0 (3-11) BUN 6 L (7-18) mg/dl Creatinine 0.77 (0.6-1.2) mg/dl Est Cr Clr Drug Dosing 79.5 ml/min Est GFR ( Amer) 111.2 Est GFR (Non-Af Amer) 95.9 BUN/Creatinine Ratio 7.4 L (10-20) Glucose 98 (70-99) mg/dl Estimat Average Glucose mg/dl Hemoglobin A1c (4.5-5.6) % Lactate (0.4-2.0) mmol/L Calcium 6.8 L D (8.5-10.1) mg/dl Magnesium 1.4 L (1.8-2.4) mg/dl Total Bilirubin 1.1 H (0.2-1) mg/dl Direct Bilirubin 0.4 H (0-0.2) mg/dl AST 179 H (15-37) U/L ALT 61 (12-78) U/L Alkaline Phosphatase 287 H (45-117) U/L Troponin I 0.158 H* (0-0.045) ng/ml Total Protein 6.4 D (6.4-8.2) gm/dl Albumin 2.4 L (3.4-5.0) gm/dl Globulin (2.5-4.0) gm/dl Albumin/Globulin Ratio (0.9-2) Lipase (73-393) U/L Procalcitonin (0-0.5) ng/ml HCG, Qual (Negative) Urine Color Urine Appearance (Clear) Urine pH (4.5-7.5) Ur Specific [place] (1.000-1.030) Urine Protein (Negative) Urine Glucose (UA) (Negative) Urine Ketones (Negative) Urine Blood (Negative) Urine Nitrite (Negative) Urine Bilirubin (Negative) Urine Urobilinogen (Negative) Ur Leukocyte Esterase (Negative) Urine WBC (Auto) (0-5) /hpf Urine RBC (Auto) (0-4) /hpf U Hyaline Cast (Auto) (0-5) /lpf U Epithel Cells (Auto) (0-5) /lpf Urine Bacteria (Auto) (Negative) Urine Mucus (None Prsent) Urine Opiates Screen (Neg) U Codeine Confrm GC/MS Ur Morphine (GC/MS) Ur Hydrocodone (GC/MS) Ur Norhydrocodone Ur Noroxycodone Urine Oxycodone (GC/MS) U Oxymorphone GC/MS Ur Methadone, Qual (Neg) Ur Hydromorphone (GC/MS) Urine Barbiturates (Neg) Ur Phencyclidine (PCP) (Neg) U Amphetamin/Meth Scrn (Neg) MDMA (Ecstasy) Screen (Neg) U Benzodiazepines Scrn (Neg) Ur Cocaine Metabolite (Neg) U Marijuana (THC) Screen (Neg) Drug Screen Comment Ethyl Alcohol mg/dL (0-3) mg/dl SARS-CoV-2 Ag (Rapid) (Negative) 10/07/20 10/07/20 10/07/20 Range/Units 22:23 22:23 22:21 WBC (4.8-10.8) K/uL RBC (4.2-5.4) M/uL Hgb (12.0-16.0) g/dL Hct (37-47) % MCV (80-100) fL MCH (25-34) pg MCHC (32-36) g/dL RDW Std Deviation (36.4-46.3) fL RDW Coeff of Hanna (11.5-14.5) % Plt Count (130-400) K/uL MPV (7.4-10.4) fL Immature Gran % (Auto) % Neut % (Auto) % Lymph % (Auto) % [place] % (Auto) % Eos % (Auto) % Baso % (Auto) % Neut # (Auto) (1.4-6.5) K/uL Lymph # (Auto) (1.2-3.4) K/uL [place] # (Auto) (0.11-0.59) K/uL Eos # (Auto) (0-0.5) K/uL Baso # (Auto) (0-0.2) K/uL Immature Gran # (Auto) (0.00-0.02) K/uL PT 12.2 H (9.0-12.0) Seconds INR 1.2 H (0.9-1.1) APTT 23.8 (21.0-31.0) Seconds PTT Ratio 0.9 Sodium (136-145) mmol/L Potassium (3.5-5.1) mmol/L Chloride (98-107) mmol/L Carbon Dioxide (21-32) mmol/L Anion Gap (3-11) BUN (7-18) mg/dl Creatinine (0.6-1.2) mg/dl Est Cr Clr Drug Dosing ml/min Est GFR ( Amer) Est GFR (Non-Af Amer) BUN/Creatinine Ratio (10-20) Glucose (70-99) mg/dl Estimat Average Glucose mg/dl Hemoglobin A1c (4.5-5.6) % Lactate (0.4-2.0) mmol/L Calcium (8.5-10.1) mg/dl Magnesium (1.8-2.4) mg/dl Total Bilirubin (0.2-1) mg/dl Direct Bilirubin (0-0.2) mg/dl AST (15-37) U/L ALT (12-78) U/L Alkaline Phosphatase (45-117) U/L Troponin I (0-0.045) ng/ml Total Protein (6.4-8.2) gm/dl Albumin (3.4-5.0) gm/dl Globulin (2.5-4.0) gm/dl Albumin/Globulin Ratio (0.9-2) Lipase (73-393) U/L Procalcitonin 0.08 (0-0.5) ng/ml HCG, Qual (Negative) Urine Color Urine Appearance (Clear) Urine pH (4.5-7.5) Ur Specific [place] (1.000-1.030) Urine Protein (Negative) Urine Glucose (UA) (Negative) Urine Ketones (Negative) Urine Blood (Negative) Urine Nitrite (Negative) Urine Bilirubin (Negative) Urine Urobilinogen (Negative) Ur Leukocyte Esterase (Negative) Urine WBC (Auto) (0-5) /hpf Urine RBC (Auto) (0-4) /hpf U Hyaline Cast (Auto) (0-5) /lpf U Epithel Cells (Auto) (0-5) /lpf Urine Bacteria (Auto) (Negative) Urine Mucus (None Prsent) Urine Opiates Screen (Neg) U Codeine Confrm GC/MS Ur Morphine (GC/MS) Ur Hydrocodone (GC/MS) Ur Norhydrocodone Ur Noroxycodone Urine Oxycodone (GC/MS) U Oxymorphone GC/MS Ur Methadone, Qual (Neg) Ur Hydromorphone (GC/MS) Urine Barbiturates (Neg) Ur Phencyclidine (PCP) (Neg) U Amphetamin/Meth Scrn (Neg) MDMA (Ecstasy) Screen (Neg) U Benzodiazepines Scrn (Neg) Ur Cocaine Metabolite (Neg) U Marijuana (THC) Screen (Neg) Drug Screen Comment Ethyl Alcohol mg/dL (0-3) mg/dl SARS-CoV-2 Ag (Rapid) (Negative) 10/07/20 10/07/20 10/07/20 Range/Units 22:21 22:21 22:21 WBC (4.8-10.8) K/uL RBC (4.2-5.4) M/uL Hgb (12.0-16.0) g/dL Hct (37-47) % MCV (80-100) fL MCH (25-34) pg MCHC (32-36) g/dL RDW Std Deviation (36.4-46.3) fL RDW Coeff of Hanna (11.5-14.5) % Plt Count (130-400) K/uL MPV (7.4-10.4) fL Immature Gran % (Auto) % Neut % (Auto) % Lymph % (Auto) % [place] % (Auto) % Eos % (Auto) % Baso % (Auto) % Neut # (Auto) (1.4-6.5) K/uL Lymph # (Auto) (1.2-3.4) K/uL [place] # (Auto) (0.11-0.59) K/uL Eos # (Auto) (0-0.5) K/uL Baso # (Auto) (0-0.2) K/uL Immature Gran # (Auto) (0.00-0.02) K/uL PT (9.0-12.0) Seconds INR (0.9-1.1) APTT (21.0-31.0) Seconds PTT Ratio Sodium 137 (136-145) mmol/L Potassium 2.4 L* (3.5-5.1) mmol/L Chloride 93 L (98-107) mmol/L Carbon Dioxide 28 (21-32) mmol/L Anion Gap 16.0 H (3-11) BUN 8 (7-18) mg/dl Creatinine 0.93 (0.6-1.2) mg/dl Est Cr Clr Drug Dosing 65.9 ml/min Est GFR ( Amer) 88.5 Est GFR (Non-Af Amer) 76.3 BUN/Creatinine Ratio 8.3 L (10-20) Glucose 155 H (70-99) mg/dl Estimat Average Glucose mg/dl Hemoglobin A1c (4.5-5.6) % Lactate (0.4-2.0) mmol/L Calcium 8.3 L (8.5-10.1) mg/dl Magnesium 1.2 L (1.8-2.4) mg/dl Total Bilirubin 0.9 (0.2-1) mg/dl Direct Bilirubin (0-0.2) mg/dl AST 259 H (15-37) U/L ALT 84 H (12-78) U/L Alkaline Phosphatase 372 H (45-117) U/L Troponin I 0.165 H* (0-0.045) ng/ml Total Protein 8.2 (6.4-8.2) gm/dl Albumin 3.1 L (3.4-5.0) gm/dl Globulin 5.1 H (2.5-4.0) gm/dl Albumin/Globulin Ratio 0.6 L (0.9-2) Lipase 201 (73-393) U/L Procalcitonin (0-0.5) ng/ml HCG, Qual Negative (Negative) Urine Color Urine Appearance (Clear) Urine pH (4.5-7.5) Ur Specific [place] (1.000-1.030) Urine Protein (Negative) Urine Glucose (UA) (Negative) Urine Ketones (Negative) Urine Blood (Negative) Urine Nitrite (Negative) Urine Bilirubin (Negative) Urine Urobilinogen (Negative) Ur Leukocyte Esterase (Negative) Urine WBC (Auto) (0-5) /hpf Urine RBC (Auto) (0-4) /hpf U Hyaline Cast (Auto) (0-5) /lpf U Epithel Cells (Auto) (0-5) /lpf Urine Bacteria (Auto) (Negative) Urine Mucus (None Prsent) Urine Opiates Screen (Neg) U Codeine Confrm GC/MS Ur Morphine (GC/MS) Ur Hydrocodone (GC/MS) Ur Norhydrocodone Ur Noroxycodone Urine Oxycodone (GC/MS) U Oxymorphone GC/MS Ur Methadone, Qual (Neg) Ur Hydromorphone (GC/MS) Urine Barbiturates (Neg) Ur Phencyclidine (PCP) (Neg) U Amphetamin/Meth Scrn (Neg) MDMA (Ecstasy) Screen (Neg) U Benzodiazepines Scrn (Neg) Ur Cocaine Metabolite (Neg) U Marijuana (THC) Screen (Neg) Drug Screen Comment Ethyl Alcohol mg/dL 134.5 H (0-3) mg/dl SARS-CoV-2 Ag (Rapid) (Negative) 10/07/20 Range/Units 22:21 WBC 11.20 H (4.8-10.8) K/uL RBC 4.20 (4.2-5.4) M/uL Hgb 13.9 (12.0-16.0) g/dL Hct 40.8 (37-47) % MCV 97.1 (80-100) fL MCH 33.1 (25-34) pg MCHC 34.1 (32-36) g/dL RDW Std Deviation 56.5 H (36.4-46.3) fL RDW Coeff of Hanna 15.9 H (11.5-14.5) % Plt Count 559 H (130-400) K/uL MPV 9.3 (7.4-10.4) fL Immature Gran % (Auto) 0.2 % Neut % (Auto) 81.7 % Lymph % (Auto) 12.6 % [place] % (Auto) 5.3 % Eos % (Auto) 0.0 % Baso % (Auto) 0.2 % Neut # (Auto) 9.16 H (1.4-6.5) K/uL Lymph # (Auto) 1.41 (1.2-3.4) K/uL [place] # (Auto) 0.59 (0.11-0.59) K/uL Eos # (Auto) 0.00 (0-0.5) K/uL Baso # (Auto) 0.02 (0-0.2) K/uL Immature Gran # (Auto) 0.02 (0.00-0.02) K/uL PT (9.0-12.0) Seconds INR (0.9-1.1) APTT (21.0-31.0) Seconds PTT Ratio Sodium (136-145) mmol/L Potassium (3.5-5.1) mmol/L Chloride (98-107) mmol/L Carbon Dioxide (21-32) mmol/L Anion Gap (3-11) BUN (7-18) mg/dl Creatinine (0.6-1.2) mg/dl Est Cr Clr Drug Dosing ml/min Est GFR ( Amer) Est GFR (Non-Af Amer) BUN/Creatinine Ratio (10-20) Glucose (70-99) mg/dl Estimat Average Glucose mg/dl Hemoglobin A1c (4.5-5.6) % Lactate (0.4-2.0) mmol/L Calcium (8.5-10.1) mg/dl Magnesium (1.8-2.4) mg/dl Total Bilirubin (0.2-1) mg/dl Direct Bilirubin (0-0.2) mg/dl AST (15-37) U/L ALT (12-78) U/L Alkaline Phosphatase (45-117) U/L Troponin I (0-0.045) ng/ml Total Protein (6.4-8.2) gm/dl Albumin (3.4-5.0) gm/dl Globulin (2.5-4.0) gm/dl Albumin/Globulin Ratio (0.9-2) Lipase (73-393) U/L Procalcitonin (0-0.5) ng/ml HCG, Qual (Negative) Urine Color Urine Appearance (Clear) Urine pH (4.5-7.5) Ur Specific [place] (1.000-1.030) Urine Protein (Negative) Urine Glucose (UA) (Negative) Urine Ketones (Negative) Urine Blood (Negative) Urine Nitrite (Negative) Urine Bilirubin (Negative) Urine Urobilinogen (Negative) Ur Leukocyte Esterase (Negative) Urine WBC (Auto) (0-5) /hpf Urine RBC (Auto) (0-4) /hpf U Hyaline Cast (Auto) (0-5) /lpf U Epithel Cells (Auto) (0-5) /lpf Urine Bacteria (Auto) (Negative) Urine Mucus (None Prsent) Urine Opiates Screen (Neg) U Codeine Confrm GC/MS Ur Morphine (GC/MS) Ur Hydrocodone (GC/MS) Ur Norhydrocodone Ur Noroxycodone Urine Oxycodone (GC/MS) U Oxymorphone GC/MS Ur Methadone, Qual (Neg) Ur Hydromorphone (GC/MS) Urine Barbiturates (Neg) Ur Phencyclidine (PCP) (Neg) U Amphetamin/Meth Scrn (Neg) MDMA (Ecstasy) Screen (Neg) U Benzodiazepines Scrn (Neg) Ur Cocaine Metabolite (Neg) U Marijuana (THC) Screen (Neg) Drug Screen Comment Ethyl Alcohol mg/dL (0-3) mg/dl SARS-CoV-2 Ag (Rapid) (Negative) Diagnostic Findings CTA 1. There is no evidence of pulmonary embolus in the main, lobar, or segmental pulmonary arteries. 2. There is no airspace consolidation or pleural effusion. 3. Severe hepatic steatosis. 4. Circumferential wall thickening is suggested in the esophagus. Correlate clinically for evidence of esophagitis. 5. A cystogastrostomy device is noted in the stomach. 6. Additional findings as above. (1) Abdominal pain Abdominal location: upper abdomen, unspecified Qualified Code(s): R10.10 - Upper abdominal pain, unspecified
--- NOTE | 2020-10-08 11:06 | CT Scan Report ---
CT OF THE ABDOMEN AND PELVIS WITHOUT CONTRAST CLINICAL HISTORY: Abdominal pain, history of recurrent pancreatitis. COMPARISON STUDY: CT of the abdomen and pelvis August 24, 2020. TECHNIQUE: Axial images of the abdomen and pelvis were obtained without IV contrast. Images were revi ewed in the axial, sagittal, and coronal planes. Automated exposure control was utilized for the beata dy. A dose lowering technique was utilized adhering to the principles of ALARA. FINDINGS: Lung bases are unremarkable. Evaluation of the abdomen and pelvis is suboptimal on this une nhanced examination. No pneumatosis, free air or portal venous gas is present. Severe hepatic steatos is is again noted. This is unchanged. A cystgastrostomy tube is unchanged in position. The previously described peripancreatic fluid collection is suboptimally assessed on this unenhanced exam but has d ecreased in size since CT of September 23, 2020. Gas within this collection has decreased. Residual col lection measures approximately 3.5 cm. No new fluid collections are present. Mild peripancreatic infi ltration has decreased since CT of September 23, 2020. Pancreatic glandular atrophy is again noted. The re is persistent left upper quadrant infiltration with irregular fat-containing soft tissue within th e left paracolic gutter which is likely related to previous episodes of pancreatitis. There is no thomas dence for a bowel obstruction. There is contrast within the collecting systems, ureters and bladder f rom recent contrast-enhanced chest CT. There is a small amount of gas within the bladder. Mild wall t hickening of the transverse colon is noted. The appendix is normal. No suspicious osseous lesions are noted. No acute fractures are identified. IMPRESSION: 1. Interval decrease in peripancreatic infiltration since CT of September 23, 2020. No change in positi on of the cystgastrostomy tube. Decrease in size of the peripancreatic fluid collection, suboptimally assessed on this unenhanced exam. 2. Severe hepatic steatosis, unchanged. 3. No biliary ductal dilatation status post cholecystectomy. 4. Mild wall thickening of portions of the colon, most notably the transverse colon. This is likely d ue to underdistention however a nonspecific mild colitis could appear similar. ACT 112: Negative or not required by law. Electronically signed by: Remi Arizmendi M.D. 10/08/2020 11:05 AM
--- NOTE | 2020-10-08 12:09 | Electrocardiogram Report ---
Test Reason : Blood Pressure : / mmHG Vent. Rate : 133 BPM Atrial Rate : 133 BPM P-R Int : 098 ms QRS Dur : 072 ms QT Int : 344 ms P-R-T Axes : 025 049 061 degrees QTc Int : 511 ms Sinus tachycardia with short CA Nonspecific ST and T wave abnormality Abnormal ECG When compared with ECG of 07-OCT-2020 22:14, (unconfirmed) No significant change was found Confirmed by Kenneth Wooten ([id number]) on 10/08/2020 12:09:26 PM Referred By: REFERRED SELF Confirmed By:Kenneth Wooten
--- NOTE | 2020-10-08 12:09 | Electrocardiogram Report ---
Test Reason : Blood Pressure : / mmHG Vent. Rate : 113 BPM Atrial Rate : 113 BPM P-R Int : 126 ms QRS Dur : 080 ms QT Int : 396 ms P-R-T Axes : 040 046 073 degrees QTc Int : 543 ms Poor data quality, interpretation may be adversely affected Sinus tachycardia Nonspecific ST abnormality Prolonged QT Abnormal ECG When compared with ECG of 22-AUG-2020 21:18, ST now depressed in Anterior leads Confirmed by Kenneth Wooten ([id number]) on 10/08/2020 12:08:22 PM Referred By: REFERRED SELF Confirmed By:Kenneth Wooten
[2020-10-08] MEDS: LORazepam 0.5 MG/1 ML VIAL IV PRN (15:41)
--- NOTE | 2020-10-08 17:30 | Hospitalist Progress Note ---
Date of Service October 08, 2020 Assessment & Plan (1) Abdominal pain: 40-year-old female with history of recurrent pancreatitis, history of pancreatic pseudocyst and necrosis, alcoholism, Diastolic dysfunction, presenting with abdominal pain after drinking alcohol. Abdominal pain, history of recurrent pancreatitis, pancreatic pseudocyst and necrosis Precipitated by drinking alcohol prior to admission CT abdomen pelvis: No acute process overall Lipase level within normal range GI consulted, plan for EGD tomorrow Continue clear liquid diet, IV fluids Sinus tachycardia The setting of abdominal pain, alcohol intoxication, possible early alcohol withdrawal Echo performed about 2 weeks ago showing grade 1 diastolic dysfunction Remained flat at 0.1, next is 0.1 Denies chest pain or any other cardiac symptoms Metoprolol 25 mg p.o. twice daily started Management of alcohol withdrawal per below Continue to monitor Alcohol withdrawal Continue alcohol withdrawal protocol, including Librium taper As needed Ativan Continue to monitor closely on telemetry unit Hypokalemia and hypomagnesemia Replaced, monitor Diastolic CHF Euvolemic Depression with anxiety Psychiatry service consult History of hypertension Not on any medication at this time DVT prophylaxis Lovenox Disposition Pending Management of medical conditions noted above Patient contemplating on transitioning to alcohol rehab upon discharge Admission and Anticipated Discharge Date Admission Date: October 08, 2020 Subjective Follow-up for abdominal pain, sinus tachycardia, etc. Seen resting in bed, sitting up, not in distress, in good spirits Oriented x3, answers all questions appropriately States epigastric pain is about the same as yesterday, may be slightly better Still has occasional nausea Denies chest pain, palpitations, dizziness, shortness of breath Denies tremors or confusion, hallucinations No other symptoms Review of Systems Review of Systems: All systems reviewed & are unremarkable except as noted in Subjective Physical Exam Physical Exam: General- oriented x 3, not in distress, speaks in sentences with no effort or accessory muscle use Head- atraumatic Eyes- PERRL, EOMI, anicteric ENT- oropharynx clear Neck- supple, no JVD, no adenopathy, no thyromegaly; carotids +2/2, no bruits appreciated Lungs- clear to auscultation bilaterally, no rales/wheezes Heart-mildly tachycardic in the 110s, regular rhythm; no murmur, no gallop, no rub appreciated Abdomen- normal bowel sounds, nondistended, soft, moderate epigastric tenderness, no masses or hepatosplenomegaly Extremities- no pretibial edema, no calf tenderness; peripheral pulses intact Neuro- alert, oriented x 3; CN 2-12 grossly intact; motor 5/5 bilaterally;sensation 100% on all extremities; no other gross focal neurologic deficits Skin- warm & dry Results & Data Results & Data ([facility]) Vital Signs (Past 12 Hours) Vital Signs Temp Pulse Pulse Resp BP BP Pulse Ox 10/08/20 16:29 95 H 10/08/20 14:58 36.9 C 99 H 18 125/86 98 10/08/20 11:11 36.8 C 94 H 19 123/86 96 10/08/20 08:03 36.8 C 126 H 20 134/95 99 10/08/20 07:34 37.1 C 110 H 18 130/98 96 10/08/20 07:14 122 H 10/08/20 06:23 101 H 192/102 H Laboratory Results Laboratory Results - last 24 hr 10/07/20 10/07/20 10/07/20 22:21 22:21 22:21 WBC 11.20 H RBC 4.20 Hgb 13.9 Hct 40.8 MCV 97.1 MCH 33.1 MCHC 34.1 RDW Std Deviation 56.5 H RDW Coeff of Hanna 15.9 H Plt Count 559 H MPV 9.3 Immature Gran % (Auto) 0.2 Neut % (Auto) 81.7 Lymph % (Auto) 12.6 Holt % (Auto) 5.3 Eos % (Auto) 0.0 Baso % (Auto) 0.2 Neut # (Auto) 9.16 H Lymph # (Auto) 1.41 [place] # (Auto) 0.59 Eos # (Auto) 0.00 Baso # (Auto) 0.02 Immature Gran # (Auto) 0.02 PT INR APTT PTT Ratio Sodium 137 Potassium 2.4 L* Chloride 93 L Carbon Dioxide 28 Anion Gap 16.0 H BUN 8 Creatinine 0.93 Est Cr Clr Drug Dosing 65.9 Est GFR ( Amer) 88.5 Est GFR (Non-Af Amer) 76.3 BUN/Creatinine Ratio 8.3 L Glucose 155 H Estimat Average Glucose Hemoglobin A1c Lactate Calcium 8.3 L Magnesium 1.2 L Total Bilirubin 0.9 Direct Bilirubin AST 259 H ALT 84 H Alkaline Phosphatase 372 H Troponin I 0.165 H* Total Protein 8.2 Albumin 3.1 L Globulin 5.1 H Albumin/Globulin Ratio 0.6 L Lipase 201 Procalcitonin HCG, Qual Urine Color Urine Appearance Urine pH Ur Specific [place] Urine Protein Urine Glucose (UA) Urine Ketones Urine Blood Urine Nitrite Urine Bilirubin Urine Urobilinogen Ur Leukocyte Esterase Urine WBC (Auto) Urine RBC (Auto) U Hyaline Cast (Auto) U Epithel Cells (Auto) Urine Bacteria (Auto) Urine Mucus Urine Opiates Screen U Codeine Confrm GC/MS Ur Morphine (GC/MS) Ur Hydrocodone (GC/MS) Ur Norhydrocodone Ur Noroxycodone Urine Oxycodone (GC/MS) U Oxymorphone GC/MS Ur Methadone, Qual Ur Hydromorphone (GC/MS) Urine Barbiturates Ur Phencyclidine (PCP) U Amphetamin/Meth Scrn MDMA (Ecstasy) Screen U Benzodiazepines Scrn Ur Cocaine Metabolite U Marijuana (THC) Screen Drug Screen Comment Ethyl Alcohol mg/dL 134.5 H SARS-CoV-2 Ag (Rapid) 10/07/20 10/07/20 10/07/20 22:21 22:21 22:23 WBC RBC Hgb Hct MCV MCH MCHC RDW Std Deviation RDW Coeff of Hanna Plt Count MPV Immature Gran % (Auto) Neut % (Auto) Lymph % (Auto) [place] % (Auto) Eos % (Auto) Baso % (Auto) Neut # (Auto) Lymph # (Auto) [place] # (Auto) Eos # (Auto) Baso # (Auto) Immature Gran # (Auto) PT INR APTT 23.8 PTT Ratio 0.9 Sodium Potassium Chloride Carbon Dioxide Anion Gap BUN Creatinine Est Cr Clr Drug Dosing Est GFR ( Amer) Est GFR (Non-Af Amer) BUN/Creatinine Ratio Glucose Estimat Average Glucose Hemoglobin A1c Lactate Calcium Magnesium Total Bilirubin Direct Bilirubin AST ALT Alkaline Phosphatase Troponin I Total Protein Albumin Globulin Albumin/Globulin Ratio Lipase Procalcitonin 0.08 HCG, Qual Negative Urine Color Urine Appearance Urine pH Ur Specific [place] Urine Protein Urine Glucose (UA) Urine Ketones Urine Blood Urine Nitrite Urine Bilirubin Urine Urobilinogen Ur Leukocyte Esterase Urine WBC (Auto) Urine RBC (Auto) U Hyaline Cast (Auto) U Epithel Cells (Auto) Urine Bacteria (Auto) Urine Mucus Urine Opiates Screen U Codeine Confrm GC/MS Ur Morphine (GC/MS) Ur Hydrocodone (GC/MS) Ur Norhydrocodone Ur Noroxycodone Urine Oxycodone (GC/MS) U Oxymorphone GC/MS Ur Methadone, Qual Ur Hydromorphone (GC/MS) Urine Barbiturates Ur Phencyclidine (PCP) U Amphetamin/Meth Scrn MDMA (Ecstasy) Screen U Benzodiazepines Scrn Ur Cocaine Metabolite U Marijuana (THC) Screen Drug Screen Comment Ethyl Alcohol mg/dL SARS-CoV-2 Ag (Rapid) 10/07/20 10/08/20 10/08/20 22:23 02:40 05:31 WBC 11.70 H RBC 3.84 L Hgb 12.5 Hct 38.3 MCV 99.7 MCH 32.6 MCHC 32.6 RDW Std Deviation 59.6 H RDW Coeff of Hanna 16.3 H Plt Count 444 H MPV 9.1 Immature Gran % (Auto) 0.2 Neut % (Auto) 81.5 Lymph % (Auto) 12.7 [place] % (Auto) 5.0 Eos % (Auto) 0.1 Baso % (Auto) 0.5 Neut # (Auto) 9.54 H Lymph # (Auto) 1.49 [place] # (Auto) 0.58 Eos # (Auto) 0.01 Baso # (Auto) 0.06 Immature Gran # (Auto) 0.02 PT 12.2 H INR 1.2 H APTT PTT Ratio Sodium Potassium Chloride Carbon Dioxide Anion Gap BUN Creatinine Est Cr Clr Drug Dosing Est GFR ( Amer) Est GFR (Non-Af Amer) BUN/Creatinine Ratio Glucose Estimat Average Glucose Hemoglobin A1c Lactate Calcium Magnesium Total Bilirubin Direct Bilirubin AST ALT Alkaline Phosphatase Troponin I 0.158 H* Total Protein Albumin Globulin Albumin/Globulin Ratio Lipase Procalcitonin HCG, Qual Urine Color Urine Appearance Urine pH Ur Specific [place] Urine Protein Urine Glucose (UA) Urine Ketones Urine Blood Urine Nitrite Urine Bilirubin Urine Urobilinogen Ur Leukocyte Esterase Urine WBC (Auto) Urine RBC (Auto) U Hyaline Cast (Auto) U Epithel Cells (Auto) Urine Bacteria (Auto) Urine Mucus Urine Opiates Screen U Codeine Confrm GC/MS Ur Morphine (GC/MS) Ur Hydrocodone (GC/MS) Ur Norhydrocodone Ur Noroxycodone Urine Oxycodone (GC/MS) U Oxymorphone GC/MS Ur Methadone, Qual Ur Hydromorphone (GC/MS) Urine Barbiturates Ur Phencyclidine (PCP) U Amphetamin/Meth Scrn MDMA (Ecstasy) Screen U Benzodiazepines Scrn Ur Cocaine Metabolite U Marijuana (THC) Screen Drug Screen Comment Ethyl Alcohol mg/dL SARS-CoV-2 Ag (Rapid) 10/08/20 10/08/20 10/08/20 05:31 05:31 06:14 WBC RBC Hgb Hct MCV MCH MCHC RDW Std Deviation RDW Coeff of Hanna Plt Count MPV Immature Gran % (Auto) Neut % (Auto) Lymph % (Auto) [place] % (Auto) Eos % (Auto) Baso % (Auto) Neut # (Auto) Lymph # (Auto) [place] # (Auto) Eos # (Auto) Baso # (Auto) Immature Gran # (Auto) PT INR APTT PTT Ratio Sodium 142 Potassium 3.6 D Chloride 105 Carbon Dioxide 28 Anion Gap 9.0 BUN 6 L Creatinine 0.77 Est Cr Clr Drug Dosing 79.5 Est GFR ( Amer) 111.2 Est GFR (Non-Af Amer) 95.9 BUN/Creatinine Ratio 7.4 L Glucose 98 Estimat Average Glucose 100 Hemoglobin A1c 5.1 Lactate 3.0 H* Calcium 6.8 L D Magnesium 1.4 L Total Bilirubin 1.1 H Direct Bilirubin 0.4 H AST 179 H ALT 61 Alkaline Phosphatase 287 H Troponin I Total Protein 6.4 D Albumin 2.4 L Globulin Albumin/Globulin Ratio Lipase Procalcitonin HCG, Qual Urine Color Urine Appearance Urine pH Ur Specific [place] Urine Protein Urine Glucose (UA) Urine Ketones Urine Blood Urine Nitrite Urine Bilirubin Urine Urobilinogen Ur Leukocyte Esterase Urine WBC (Auto) Urine RBC (Auto) U Hyaline Cast (Auto) U Epithel Cells (Auto) Urine Bacteria (Auto) Urine Mucus Urine Opiates Screen U Codeine Confrm GC/MS Ur Morphine (GC/MS) Ur Hydrocodone (GC/MS) Ur Norhydrocodone Ur Noroxycodone Urine Oxycodone (GC/MS) U Oxymorphone GC/MS Ur Methadone, Qual Ur Hydromorphone (GC/MS) Urine Barbiturates Ur Phencyclidine (PCP) U Amphetamin/Meth Scrn MDMA (Ecstasy) Screen U Benzodiazepines Scrn Ur Cocaine Metabolite U Marijuana (THC) Screen Drug Screen Comment Ethyl Alcohol mg/dL SARS-CoV-2 Ag (Rapid) 10/08/20 10/08/20 10/08/20 Unknown Unknown Unknown WBC RBC Hgb Hct MCV MCH MCHC RDW Std Deviation RDW Coeff of Hanna Plt Count MPV Immature Gran % (Auto) Neut % (Auto) Lymph % (Auto) [place] % (Auto) Eos % (Auto) Baso % (Auto) Neut # (Auto) Lymph # (Auto) [place] # (Auto) Eos # (Auto) Baso # (Auto) Immature Gran # (Auto) PT INR APTT PTT Ratio Sodium Potassium Chloride Carbon Dioxide Anion Gap BUN Creatinine Est Cr Clr Drug Dosing Est GFR ( Amer) Est GFR (Non-Af Amer) BUN/Creatinine Ratio Glucose Estimat Average Glucose Hemoglobin A1c Lactate Calcium Magnesium Total Bilirubin Direct Bilirubin AST ALT Alkaline Phosphatase Troponin I Total Protein Albumin Globulin Albumin/Globulin Ratio Lipase Procalcitonin HCG, Qual Urine Color Yellow Urine Appearance Clear Urine pH 8.0 H Ur Specific [place] > 1.045 H Urine Protein Trace H Urine Glucose (UA) Negative Urine Ketones Negative Urine Blood Trace H Urine Nitrite Positive A Urine Bilirubin Negative Urine Urobilinogen Negative Ur Leukocyte Esterase Negative Urine WBC (Auto) 10-30 H Urine RBC (Auto) 0-4 U Hyaline Cast (Auto) 0 U Epithel Cells (Auto) >30 H Urine Bacteria (Auto) 2+ H Urine Mucus Present A Urine Opiates Screen Pos H U Codeine Confrm GC/MS Ur Morphine (GC/MS) Ur Hydrocodone (GC/MS) Ur Norhydrocodone Ur Noroxycodone Urine Oxycodone (GC/MS) U Oxymorphone GC/MS Ur Methadone, Qual Neg Ur Hydromorphone (GC/MS) Urine Barbiturates Neg Ur Phencyclidine (PCP) Neg U Amphetamin/Meth Scrn Neg MDMA (Ecstasy) Screen Neg U Benzodiazepines Scrn Neg Ur Cocaine Metabolite Neg U Marijuana (THC) Screen Neg Drug Screen Comment Ethyl Alcohol mg/dL SARS-CoV-2 Ag (Rapid) Negative 10/08/20 Unknown WBC RBC Hgb Hct MCV MCH MCHC RDW Std Deviation RDW Coeff of Hanna Plt Count MPV Immature Gran % (Auto) Neut % (Auto) Lymph % (Auto) [place] % (Auto) Eos % (Auto) Baso % (Auto) Neut # (Auto) Lymph # (Auto) [place] # (Auto) Eos # (Auto) Baso # (Auto) Immature Gran # (Auto) PT INR APTT PTT Ratio Sodium Potassium Chloride Carbon Dioxide Anion Gap BUN Creatinine Est Cr Clr Drug Dosing Est GFR ( Amer) Est GFR (Non-Af Amer) BUN/Creatinine Ratio Glucose Estimat Average Glucose Hemoglobin A1c Lactate Calcium Magnesium Total Bilirubin Direct Bilirubin AST ALT Alkaline Phosphatase Troponin I Total Protein Albumin Globulin Albumin/Globulin Ratio Lipase Procalcitonin HCG, Qual Urine Color Urine Appearance Urine pH Ur Specific [place] Urine Protein Urine Glucose (UA) Urine Ketones Urine Blood Urine Nitrite Urine Bilirubin Urine Urobilinogen Ur Leukocyte Esterase Urine WBC (Auto) Urine RBC (Auto) U Hyaline Cast (Auto) U Epithel Cells (Auto) Urine Bacteria (Auto) Urine Mucus Urine Opiates Screen U Codeine Confrm GC/MS Pending Ur Morphine (GC/MS) Pending Ur Hydrocodone (GC/MS) Pending Ur Norhydrocodone Pending Ur Noroxycodone Pending Urine Oxycodone (GC/MS) Pending U Oxymorphone GC/MS Pending Ur Methadone, Qual Ur Hydromorphone (GC/MS) Pending Urine Barbiturates Ur Phencyclidine (PCP) U Amphetamin/Meth Scrn MDMA (Ecstasy) Screen U Benzodiazepines Scrn Ur Cocaine Metabolite U Marijuana (THC) Screen Drug Screen Comment Pending Ethyl Alcohol mg/dL SARS-CoV-2 Ag (Rapid) (1) Abdominal pain Abdominal location: upper abdomen, unspecified Qualified Code(s): R10.10 - Upper abdominal pain, unspecified
[2020-10-09] MEDS ORDERED: SIMETHICONE 80 MG CHEW PO STA (00:28)
[2020-10-09] MEDS: LACTATED RINGER'S 1,000 ML IV SCH ×3 (01:50→15:28)
[2020-10-09 02:23] LABS: Basophils # (auto) 0.05 K/uL (0-0.2); Basophils % (auto) 0.4 %; Eosinophils # (auto) 0.05 K/uL (0-0.5); Eosinophils % (auto) 0.4 %; Immature Granulocytes # (auto) 0.02 K/uL (0.00-0.02); Immature Granulocytes % (auto) 0.2 %; Lymphocytes # (auto) 1.63 K/uL (1.2-3.4); Lymphocytes % (auto) 13.4 %; Mean Corpuscular Hemoglobin 32.9 pg (25-34); Mean Corpuscular Hgb Conc 32.4 g/dL (32-36); Mean Corpuscular Volume 101.8 fL (80-100); Monocytes # (auto) 0.46 K/uL (0.11-0.59); Monocytes % (auto) 3.8 %; Neutrophils # (auto) 9.97 K/uL (1.4-6.5); Neutrophils % (auto) 81.8 %; Platelet Count 342 K/uL (130-400); RDW Coefficient of Variation 16.3 % (11.5-14.5); RDW Standard Deviation 61.2 fL (36.4-46.3); Red Blood Count 3.34 M/uL (4.2-5.4); White Blood Count 12.18 K/uL (4.8-10.8)
[2020-10-09 02:41] LABS: Albumin Level 2.3 gm/dl (3.4-5.0); Calcium 7.5 mg/dl (8.5-10.1); Creatinine Clr Calc Pharmacy 103.8 ml/min; Est GFR (African American) 131.9; Est GFR (Non-African American) 113.8; Magnesium 1.6 mg/dl (1.8-2.4); Potassium 3.6 mmol/L (3.5-5.1)
[2020-10-09 02:43] LABS: Albumin Globulin Ratio 0.6 (0.9-2); Bilirubin,Total 1.4 mg/dl (0.2-1); Globulin 3.8 gm/dl (2.5-4.0); Total Protein 6.1 gm/dl (6.4-8.2)
[2020-10-09] MEDS: MoRPHine SULFATE 4 MG/ML 1 ML CARP\\VIAL IV PRN ×4 (03:31→20:26)
[2020-10-09] MEDS ORDERED: POTASSIUM CHLORIDE CRTAB 20 MEQ TABCR PO STA (04:18)
[2020-10-09] MEDS ORDERED: MAGNESIUM SULFATE / D5W 1 GM/100 ML BAG IV ONE (04:18)
[2020-10-09] MEDS ORDERED: ACETAMINOPHEN 325 MG TAB PO STA (04:19)
[2020-10-09] MEDS ORDERED: METOPROLOL TARTRATE 25 MG TAB PO SCH (04:20)
[2020-10-09] MEDS: CEFEPIME 2,000 MG in SYRINGE 0 ML IV SCH ×2 (05:03→17:29)
[2020-10-09] MEDS: LORazepam 0.5 MG/1 ML VIAL IV PRN ×2 (07:28→17:29)
[2020-10-09] MEDS: CALCIUM CARBONATE 500 MG CHEWABLE TAB PO SCH ×3 (09:00→20:26)
[2020-10-09] MEDS: chlordiazePOXIDE HCl 5 MG CAP PO SCH ×2 (09:09→20:41)
[2020-10-09] MEDS: POTASSIUM CHLORIDE CRTAB 20 MEQ TABCR PO SCH (09:10)
[2020-10-09] MEDS: FOLIC ACID 1 MG TAB PO SCH (09:10)
[2020-10-09] MEDS: PANTOprazole 40 MG TAB PO SCH (09:10)
[2020-10-09] MEDS: THIAMINE HCL 100 MG TAB PO SCH (09:10)
[2020-10-09] MEDS: MAGNESIUM OXIDE 400 MG TAB PO SCH ×2 (09:10→20:26)
[2020-10-09] MEDS: MULTIVITAMIN TAB PO SCH (09:11)
[2020-10-09] MEDS: ENOXAPARIN INJ 40 MG/0.4 ML SYR SQ SCH (09:11)
[2020-10-09] MEDS ORDERED: MAGNESIUM SULFATE / D5W 1 GM/100 ML BAG IV SCH (10:00)
--- NOTE | 2020-10-09 10:56 | Gastroenterology Progress Note ---
Date of Service October 09, 2020 Assessment & Plan (1) Abdominal pain: Pt is a 40 y/o female with h/o ongoing ETOH abuse in the setting of h/o recurrent pancreatitis, large pancreatic pseudocyst and necrosis s/p AXIOS stent, s/p endoscopic necresectomy for clogged stent, now admitted with r ecurrent abd pain. CTAP with decrease in size of pancreatic fluid collection; labs are stable. - EGD today for evaluation of panceatic cyst, possible debridement - Continue IVF support - Symptomatic mgmt with analgesia PRN - Antiemetics PRN - Keep NPO - Will be important for pt to maintain strict ETOH avoidance; she tells me she is considering rehab Please see addendum below with additional recommendation from my supervising physician. Admission and Anticipated Discharge Date Admission Date: October 08, 2020 Supervising Physician Co-Signing Physician Notes I saw and evaluated the patient. We are planning to do upper endoscopy with pseudocyst debridement. This was previously performed at [facility] and they have asked that I help provide the service locally for her. The patient is presently drinking alcohol despite the fact that she has had recurrent alcoholic pancreatitis resulting in a large pancreatic pseudocyst with walled off pancreatic necrosis. We have discussed the risks and benefits of the procedure to include bleeding, infection, perforation, pain and need for follow- up studies. Subjective Pt seen in f/u pancreatitis, large pancreatic pseudocyst with walled off pancreatic necrosis s/p AXIOS stent [place] [facility] [place] Overnight abd pain about the same, somewhat improved with analgesia; had loose/diarrheal stool overnight. Labs are stable, no melena, hematochezia, hematemesis, fever. CTAP with decreased size of pancreatic fluid collection. Physical Exam Constitutional: WD/WN, vitals as above no acute distress Respiratory: normal respiratory effort Cardiovascular: Rate/Rhythm: regular rhythm and + tachycardic Gastrointestinal (Abdomen): Inspection/Auscultation: normal bowel sounds Percussion/Palpation: abdomen soft mildly TTP in the epigastrium Skin: no rashes, warm and dry Psychiatric: A+Ox3, euthymic affect Results & Data ([facility]) Vital Signs (Past 12 Hours) Vital Signs Temp Pulse Pulse Resp BP Pulse Ox 10/09/20 07:11 37.4 C 109 H 18 122/89 99 10/09/20 07:09 99 H 10/09/20 03:32 37.7 C H 125 H 18 129/91 99 10/08/20 23:38 37.2 C 83 20 145/104 H 95 Laboratory Results 10/09/20 10/09/20 10/09/20 Range/Units 02:10 02:10 02:10 WBC 12.18 H (4.8-10.8) K/uL RBC 3.34 L (4.2-5.4) M/uL Hgb 11.0 L (12.0-16.0) g/dL Hct 34.0 L (37-47) % MCV 101.8 H (80-100) fL MCH 32.9 (25-34) pg MCHC 32.4 (32-36) g/dL RDW Std Deviation 61.2 H (36.4-46.3) fL RDW Coeff of Hanna 16.3 H (11.5-14.5) % Plt Count 342 (130-400) K/uL MPV 9.0 (7.4-10.4) fL Immature Gran % (Auto) 0.2 % Neut % (Auto) 81.8 % Lymph % (Auto) 13.4 % [place] % (Auto) 3.8 % Eos % (Auto) 0.4 % Baso % (Auto) 0.4 % Neut # (Auto) 9.97 H (1.4-6.5) K/uL Lymph # (Auto) 1.63 (1.2-3.4) K/uL [place] # (Auto) 0.46 (0.11-0.59) K/uL Eos # (Auto) 0.05 (0-0.5) K/uL Baso # (Auto) 0.05 (0-0.2) K/uL Immature Gran # (Auto) 0.02 (0.00-0.02) K/uL Sodium 136 (136-145) mmol/L Potassium 3.6 (3.5-5.1) mmol/L Chloride 102 (98-107) mmol/L Carbon Dioxide 31 (21-32) mmol/L Anion Gap 3.0 (3-11) BUN 4 L (7-18) mg/dl Creatinine 0.59 L (0.6-1.2) mg/dl Est Cr Clr Drug Dosing 103.8 ml/min Est GFR ( Amer) 131.9 Est GFR (Non-Af Amer) 113.8 BUN/Creatinine Ratio 6.0 L (10-20) Glucose 87 (70-99) mg/dl Lactate 1.9 (0.4-2.0) mmol/L Calcium 7.5 L (8.5-10.1) mg/dl Magnesium 1.6 L (1.8-2.4) mg/dl Total Bilirubin 1.4 H (0.2-1) mg/dl AST 204 H (15-37) U/L ALT 60 (12-78) U/L Alkaline Phosphatase 274 H (45-117) U/L Total Protein 6.1 L (6.4-8.2) gm/dl Albumin 2.3 L (3.4-5.0) gm/dl Globulin 3.8 (2.5-4.0) gm/dl Albumin/Globulin Ratio 0.6 L (0.9-2) 10/08/20 Range/Units 20:35 WBC (4.8-10.8) K/uL RBC (4.2-5.4) M/uL Hgb (12.0-16.0) g/dL Hct (37-47) % MCV (80-100) fL MCH (25-34) pg MCHC (32-36) g/dL RDW Std Deviation (36.4-46.3) fL RDW Coeff of Hanna (11.5-14.5) % Plt Count (130-400) K/uL MPV (7.4-10.4) fL Immature Gran % (Auto) % Neut % (Auto) % Lymph % (Auto) % [place] % (Auto) % Eos % (Auto) % Baso % (Auto) % Neut # (Auto) (1.4-6.5) K/uL Lymph # (Auto) (1.2-3.4) K/uL [place] # (Auto) (0.11-0.59) K/uL Eos # (Auto) (0-0.5) K/uL Baso # (Auto) (0-0.2) K/uL Immature Gran # (Auto) (0.00-0.02) K/uL Sodium (136-145) mmol/L Potassium (3.5-5.1) mmol/L Chloride (98-107) mmol/L Carbon Dioxide (21-32) mmol/L Anion Gap (3-11) BUN (7-18) mg/dl Creatinine (0.6-1.2) mg/dl Est Cr Clr Drug Dosing ml/min Est GFR ( Amer) Est GFR (Non-Af Amer) BUN/Creatinine Ratio (10-20) Glucose (70-99) mg/dl Lactate 3.3 H* (0.4-2.0) mmol/L Calcium (8.5-10.1) mg/dl Magnesium (1.8-2.4) mg/dl Total Bilirubin (0.2-1) mg/dl AST (15-37) U/L ALT (12-78) U/L Alkaline Phosphatase (45-117) U/L Total Protein (6.4-8.2) gm/dl Albumin (3.4-5.0) gm/dl Globulin (2.5-4.0) gm/dl Albumin/Globulin Ratio (0.9-2) Diagnostic Findings CTAP FINDINGS: Lung bases are unremarkable. Evaluation of the abdomen and pelvis is suboptimal on this unenhanced examination. No pneumatosis, free air or portal venous gas is present. Severe hepatic steatosis is again noted. This is unchanged. A cystgastrostomy tube is unchanged in position. The previously described peripancreatic fluid collection is suboptimally assessed on this unenhanced exam but has decreased in size since CT of September 23, 2020. Gas within this collection has decreased. Residual collection measures approximately 3.5 cm. No new fluid collections are present. Mild peripancreatic infiltration has decreased since CT of September 23, 2020. Pancreatic glandular atrophy is again noted. There is persistent left upper quadrant infiltration with irregular fat-containing soft tissue within the left paracolic gutter which is likely related to previous episodes of pancreatitis. There is no evidence for a bowel obstruction. There is contrast within the collecting systems, ureters and bladder from recent contrast-enhanced chest CT. There is a small amount of gas within the bladder. Mild wall thickening of the transverse colon is noted. The appendix is normal. No suspicious osseous lesions are noted. No acute fractures are identified. IMPRESSION: 1. Interval decrease in peripancreatic infiltration since CT of September 23, 2020. No change in position of the cystgastrostomy tube. Decrease in size of the peripancreatic fluid collection, suboptimally assessed on this unenhanced exam. 2. Severe hepatic steatosis, unchanged. 3. No biliary ductal dilatation status post cholecystectomy. 4. Mild wall thickening of portions of the colon, most notably the transverse colon. This is likely due to underdistention however a nonspecific mild colitis could appear similar. (1) Abdominal pain Abdominal location: upper abdomen, unspecified Qualified Code(s): R10.10 - Upper abdominal pain, unspecified
[2020-10-09] MEDS ORDERED: MIDAZOLAM HCL 1 MG/ML 2ML VIAL ONE (11:04)
[2020-10-09] MEDS ORDERED: DEXAMETHASONE SOD INJ 4 MG/ML VIAL ONE (11:04)
[2020-10-09] MEDS ORDERED: LIDOCAINE HCL 2% 2 ML VIAL/AMP(20MG/ML) INFIL ONE (11:04)
[2020-10-09] MEDS ORDERED: PROPOFOL IV EMULSION 10 MG/ML 20 ML VIAL IV ONE (11:04)
[2020-10-09] MEDS ORDERED: ONDANSETRON INJ 2 MG/ML 2 ML VIAL ONE (11:04)
[2020-10-09] MEDS ORDERED: fentaNYL citrate 100 MCG/2 ML VIAL ONE (11:05)
[2020-10-09] MEDS ORDERED: ePHEDrine sulfate 50 MG/ML AMP IV PRN (11:08)
[2020-10-09] MEDS ORDERED: ONDANSETRON INJ 2 MG/ML 2 ML VIAL IV PRN (11:08)
[2020-10-09] MEDS ORDERED: ATROPINE SULFATE 0.1 MG/ML 10ML SYR IV PRN (11:08)
[2020-10-09] MEDS ORDERED: fentaNYL citrate 100 MCG/2 ML VIAL IV PRN (11:08)
--- NOTE | 2020-10-09 11:12 | Anesthesiology Consultation ---
Date of Service October 09, 2020 Assessment & Plan (1) Encounter for pre-operative examination: Chart Review Chart Review: Acceptable Risk for Surgery and Patient NOT seen in Pre Admission Testing Consults Requested none History Surgery Operation Date: 10/09/20 11:55 Proposed Procedures p Esophagogastroduodenoscopy - Wilton Ramirez DO Height/Weight Height: 5 ft 3 in Weight: 60.2 kg Allergies Allergy/AdvReac Type Severity Reaction Status Date / Time tramadol AdvReac Severe SEIZURES Verified 10/07/20 23:34 gabapentin AdvReac Hallucinati Verified 10/07/20 23:34 ng ketorolac [From Toradol] AdvReac Unknown Verified 10/07/20 23:34 Medications Home Medications Medication Instructions Recorded Confirmed Last Taken thiamine HCl (vitamin B1) [Vitamin 100 mg PO QAM #30 tab 06/14/20 10/07/20 10/07/20 B-1] calcium carbonate [Tums Extra 2 tab PO TID 08/22/20 10/07/20 10/07/20 Strength Smoothies] magnesium 250 mg PO QAM 08/22/20 10/07/20 10/07/20 multivitamin 1 tab PO QAM 08/22/20 10/07/20 10/07/20 potassium chloride [Klor-Con M20] 40 meq PO DAILY #14 tab 09/25/20 10/07/20 10/07/20 folic acid 1 mg PO DAILY 10/07/20 10/07/20 10/07/20 Active Medications Generic Name Dose Route Start Last Admin Trade Name Freq PRN Reason Stop Dose Admin Calcium Carbonate 1,000 mg 10/08/20 09:00 10/09/20 09:00 Calcium Carbonate 500 Mg Chewable Tab PO 11/07/20 08:59 Not Given TID DONOVAN Chlordiazepoxide HCl 5 mg 10/09/20 10:00 10/09/20 09:09 Chlordiazepoxide Hcl 5 Mg Cap PO 10/09/20 22:01 5 mg Q12H DONOVAN Administration Enoxaparin Sodium 40 mg 10/08/20 09:00 10/09/20 09:11 Enoxaparin Inj 40 Mg/0.4 Ml Syr SQ 11/07/20 08:59 Not Given QAM DONOVAN Folic Acid 1 mg 10/08/20 09:00 10/09/20 09:10 Folic Acid 1 Mg Tab PO 11/07/20 08:59 1 mg DAILY DONOVAN Administration Lorazepam 1 mg in 2 mls @ 2 mls/min 10/08/20 04:34 10/08/20 20:16 Ativan IV 11/07/20 04:33 2 mls/min ONE PRN Administration EtoH Withdrawal AWSS 6-10 Protocol Cefepime HCl 2,000 mg/ Syringe 20 mls @ 5 mls/min 10/08/20 06:00 10/09/20 05: 03 IV 10/18/20 05:59 5 mls/min Q12H DONOVAN Administration Protocol Lorazepam 0.5 mg in 1 mls @ 1 mls/min 10/08/20 09:25 10/09/20 07:28 Ativan IV 11/07/20 09:24 1 mls/min Q4H PRN Administration Anxiety Lactated Ringer's 1,000 mls @ 60 mls/hr 10/09/20 01:30 10/09/20 10:40 Lr IV 10/10/20 01:29 60 mls/hr .[id number] DONOVAN Infusion Magnesium Sulfate/Dextrose 1 gm in 100 mls @ 50 mls/hr 10/09/20 10:00 10/09/20 10:31 Magnesium Sulfate / D5w IV 10/09/20 11:59 50 mls/hr Q2H DONOVAN Administration Metoprolol Tartrate 25 mg 10/09/20 04:20 10/09/20 05:00 Metoprolol Tartrate 25 Mg Tab PO 11/08/20 04:19 25 mg BID DONOVAN Administration Morphine Sulfate 4 mg 10/08/20 04:34 10/09/20 07:27 Morphine Sulfate 4 Mg/Ml 1 Ml Carp\Vial IV 10/22/20 04:33 4 mg Q4H PRN Administration Pain Multivitamins 1 tab 10/08/20 09:00 10/09/20 09:11 Multivitamin Tab PO 11/07/20 08:59 1 tab QAM DONOVAN Administration Oxycodone HCl 5 - 10 mg 10/08/20 00:08 10/08/20 20:16 Oxycodone Hcl Ir 5 Mg Tab (Immediate Release) PO 10/22/20 00:07 10 mg QID PRN Administration Pain Pantoprazole Sodium 40 mg 10/09/20 09:00 10/09/20 09:10 Pantoprazole 40 Mg Tab PO 11/08/20 08:59 40 mg DAILY DONOVAN Administration Potassium Chloride 40 meq 10/08/20 09:00 10/09/20 09:10 Potassium Chloride Crtab 20 Meq Tabcr PO 11/07/20 08:59 40 meq DAILY DONOVAN Administration Thiamine HCl 100 mg 10/08/20 09:00 10/09/20 09:10 Thiamine Hcl 100 Mg Tab PO 11/07/20 08:59 100 mg QAM DONOVAN Administration Past Medical History Medical History Alcohol abuse Anxiety History of narcotic addiction Hypertension Migraine Nonischemic cardiomyopathy Pancreatic necrosis Pancreatic pseudocyst Pancreatitis Exercise / Class Metabolic Activity II 4-5 Yardwork/Stairs/Walk up hill Past Family History Family History Grandfather (Paternal) Diabetes Grandmother (Maternal) Diabetes Past Surgical History Surgical History H/O esophagogastroduodenoscopy Endoscopic US hx of endoscopic necrosectomy 08/2020 History of dental surgery History of laparoscopic cholecystectomy Past Anesthesia History No Hx of Anesthesia Complications and No Family Hx of Anesthesia Complications History of PONV No Hx of PONV and No Hx of Motion Sickness Social History Smoking Status: Never smoker Do You Dip or Chew Tobacco: No Hx Alcohol Use: Yes Alcohol type: wine alcohol intake frequency: 3 or more drinks per day Hx Substance Use: Yes substance use type: does not use Physical Exam Vital Signs Last Vital Signs Temp 37.4 C 10/09/20 07:11 Pulse 109 H 10/09/20 07:11 Resp 18 10/09/20 07:11 BP 122/89 10/09/20 07:11 Pulse Ox 99 10/09/20 07:11 Testing Laboratory Results 10/09/20 02:10 10/09/20 02:10 PT 12.2 Seconds (9.0-12.0) H 10/07/20 22:23 INR 1.2 (0.9-1.1) H 10/07/20 22:23 APTT 23.8 Seconds (21.0-31.0) 10/07/20 22:23 Hemoglobin A1c 5.1 % (4.5-5.6) 10/08/20 05:31 Urine Color Yellow 10/08/20 Unknown Urine Appearance Clear (Clear) 10/08/20 Unknown Urine pH 8.0 (4.5-7.5) H 10/08/20 Unknown Ur Specific Tony > 1.045 (1.000-1.030) H 10/08/20 Unknown Urine Protein Trace (Negative) H 10/08/20 Unknown Urine Glucose (UA) Negative (Negative) 10/08/20 Unknown Urine Ketones Negative (Negative) 10/08/20 Unknown Urine Nitrite Positive (Negative) A 10/08/20 Unknown Ur Leukocyte Esterase Negative (Negative) 10/08/20 Unknown Urine WBC (Auto) 10-30 /hpf (0-5) H 10/08/20 Unknown Urine RBC (Auto) 0-4 /hpf (0-4) 10/08/20 Unknown U Hyaline Cast (Auto) 0 /lpf (0-5) 10/08/20 Unknown U Epithel Cells (Auto) >30 /lpf (0-5) H 10/08/20 Unknown Urine Bacteria (Auto) 2+ (Negative) H 10/08/20 Unknown 10/08/20 Unknown Urine Culture - Preliminary Urine,Clean Catch Gram negative bacilli 10/08/20 06:13 Aerobic Blood Culture - Preliminary Blood No growth in Aerobic bottle after 24 hours. Anaerobic Blood Culture - Preliminary No growth in Anaerobic bottle after 24 hours. 10/08/20 06:05 Aerobic Blood Culture - Preliminary Blood No growth in Aerobic bottle after 24 hours. Anaerobic Blood Culture - Preliminary No growth in Anaerobic bottle after 24 hours. Electrocardiogram Date: 10/09/20 Sinus rhythm with short [place] Nonspecific ST abnormality Prolonged QT Abnormal ECG When compared with ECG of 07-OCT-2020 23:11, Vent. rate has decreased BY 45 BPM
--- NOTE | 2020-10-09 12:34 | Communication Note ---
Date of Service: October 09, 2020 We were planning to do a repeat upper endoscopy with possible cyst debridement today. The patient has had some difficulty with scheduling her procedure with her normal GI provider at [facility]. Unfortunately she was found to be newly Covid positive. As result we elected to consult this procedure as it is not a life- threatening problem at the present time. Recommendations Patient should avoid all alcohol consumption Patient should schedule her follow-up upper endoscopy at [facility] in 2 to 4 weeks after she has. Her Covid infection Please call with any questions or concerns, GI to sign off
[2020-10-09 13:43] LABS: Influenza A virus by PCR Negative (Neg); Influenza B virus by PCR Negative (Neg); RSV by PCR Negative (Neg)
[2020-10-09] MEDS: LORazepam 1 MG/2 ML VIAL IV PRN (13:51)
[2020-10-09 14:00] LABS: SARS CoV2 RNA(COVID-19) InHosp POSITIVE (Negative)
--- NOTE | 2020-10-09 16:16 | Electrocardiogram Report ---
Test Reason : Blood Pressure : / mmHG Vent. Rate : 088 BPM Atrial Rate : 088 BPM P-R Int : 108 ms QRS Dur : 072 ms QT Int : 398 ms P-R-T Axes : 030 039 072 degrees QTc Int : 481 ms Sinus rhythm with short RI Nonspecific ST abnormality Prolonged QT Abnormal ECG When compared with ECG of 07-OCT-2020 23:11, Vent. rate has decreased BY 45 BPM Confirmed by Kenneth Wooten ([id number]) on 10/09/2020 4:16:11 PM Referred By: REFERRED SELF Confirmed By:Kenneth Wooten
[2020-10-09] MEDS ORDERED: LORazepam 1 MG/2 ML VIAL IV PRN (18:11)
[2020-10-09] MEDS ORDERED: LORazepam 0.5 MG/1 ML VIAL IV PRN (18:11)
[2020-10-09] MEDS ORDERED: LORAZEPAM 2MG IV ACTIVE PROTOCOL IV PRN (19:00)
[2020-10-09] MEDS ORDERED: LORAZEPAM 3MG IV ACTIVE PROTOCOL IV PRN (19:00)
[2020-10-09] MEDS ORDERED: LORAZEPAM 1MG IV ACTIVE PROTOCOL IV PRN (19:00)
[2020-10-09] MEDS ORDERED: LORAZEPAM 1MG TAB ACTIVE PROTOCOL PO PRN (19:00)
[2020-10-09] MEDS: METOPROLOL TARTRATE 50 MG TAB PO SCH (20:26)
--- NOTE | 2020-10-09 20:32 | Hospitalist Progress Note ---
Date of Service October 09, 2020 Assessment & Plan (1) Abdominal pain: 40-year-old female with history of recurrent pancreatitis, history of pancreatic pseudocyst and necrosis, alcoholism, Diastolic dysfunction, presenting with abdominal pain after drinking alcohol. Abdominal pain, history of recurrent pancreatitis, pancreatic pseudocyst and necrosis Precipitated by drinking alcohol prior to admission CT abdomen pelvis: No acute process overall Lipase level within normal range GI consulted, EGD planned However patient's repeat Covid screen positive before EGD EGD canceled Per GI, recommend outpatient follow-up in 2 to 4 weeks for repeat endoscopy Advance diet Sinus tachycardia in The setting of abdominal pain, alcohol intoxication, possible early alcohol withdrawal Echo performed about 2 weeks ago showing grade 1 diastolic dysfunction Remained flat at 0.1, next is 0.1 Denies chest pain or any other cardiac symptoms Metoprolol 25 mg p.o. twice daily started Management of alcohol withdrawal per below Continue to monitor Alcohol withdrawal Continue alcohol withdrawal protocol, including Librium taper As needed Ativan Continue to monitor closely on telemetry unit Hypokalemia and hypomagnesemia Replaced, monitor COVID-19 infection Covid antigen negative Covid RNA NAAT positive 10/09/2020 for pre-EGD screening Patient has no symptoms of Covid infection, afebrile CT chest no infiltrates Continue to monitor closely Diastolic CHF Euvolemic Depression with anxiety Psychiatry service consult History of hypertension Not on any medication at this time DVT prophylaxis Lovenox Disposition Pending Management of medical conditions noted above Patient contemplating on outpatient alcohol rehab upon discharge Admission and Anticipated Discharge Date Admission Date: October 08, 2020 Subjective Follow-up for abdominal pain, etc. Seen resting in bed, comfortable, not in distress Abdominal pain is better Denies nausea vomiting No chest pain, palpitation, dizziness No tremors, sweating, hallucinations No other symptoms Review of Systems Review of Systems: All systems reviewed & are unremarkable except as noted in Subjective Physical Exam Physical Exam: General- oriented x 3, not in distress, speaks in sentences with no effort or accessory muscle use Eyes- anicteric Neck- no JVD Lungs- clear BS laterally, no rales or wheezes Heart- normal rate, regular rhythm; no murmurs Abdomen- normal bowel sounds, nondistended, soft, nontender Extremities- no pretibial edema, no calf tenderness Neuro- alert, oriented x 3; no gross focal neurologic deficits Skin- warm & dry Results & Data Results & Data ([facility]) Vital Signs (Past 12 Hours) Vital Signs Temp Pulse Resp BP Pulse Ox 10/09/20 19:20 36.9 C 132 H 18 125/88 97 10/09/20 15:18 37.2 C 117 H 20 125/92 98 10/09/20 13:29 37.3 C 125 H 18 127/96 99 10/09/20 11:12 37.3 C 106 H 18 131/99 98 Laboratory Results Laboratory Results - last 24 hr 10/08/20 10/09/20 10/09/20 20:35 02:10 02:10 WBC 12.18 H RBC 3.34 L Hgb 11.0 L Hct 34.0 L MCV 101.8 H MCH 32.9 MCHC 32.4 RDW Std Deviation 61.2 H RDW Coeff of Hanna 16.3 H Plt Count 342 MPV 9.0 Immature Gran % (Auto) 0.2 Neut % (Auto) 81.8 Lymph % (Auto) 13.4 [place] % (Auto) 3.8 Eos % (Auto) 0.4 Baso % (Auto) 0.4 Neut # (Auto) 9.97 H Lymph # (Auto) 1.63 [place] # (Auto) 0.46 Eos # (Auto) 0.05 Baso # (Auto) 0.05 Immature Gran # (Auto) 0.02 Sodium 136 Potassium 3.6 Chloride 102 Carbon Dioxide 31 Anion Gap 3.0 BUN 4 L Creatinine 0.59 L Est Cr Clr Drug Dosing 103.8 Est GFR ( Amer) 131.9 Est GFR (Non-Af Amer) 113.8 BUN/Creatinine Ratio 6.0 L Glucose 87 Lactate 3.3 H* Calcium 7.5 L Magnesium 1.6 L Total Bilirubin 1.4 H AST 204 H ALT 60 Alkaline Phosphatase 274 H Total Protein 6.1 L Albumin 2.3 L Globulin 3.8 Albumin/Globulin Ratio 0.6 L COVID-19 Eval Order SARS-CoV-2 (PCR) Influenza Type A (PCR) Influenza Type B (PCR) RSV (RT-PCR) SARS-CoV-2, RNA, NAAT 10/09/20 10/09/20 10/09/20 02:10 11:33 11:33 WBC RBC Hgb Hct MCV MCH MCHC RDW Std Deviation RDW Coeff of Hanna Plt Count MPV Immature Gran % (Auto) Neut % (Auto) Lymph % (Auto) [place] % (Auto) Eos % (Auto) Baso % (Auto) Neut # (Auto) Lymph # (Auto) [place] # (Auto) Eos # (Auto) Baso # (Auto) Immature Gran # (Auto) Sodium Potassium Chloride Carbon Dioxide Anion Gap BUN Creatinine Est Cr Clr Drug Dosing Est GFR ( Amer) Est GFR (Non-Af Amer) BUN/Creatinine Ratio Glucose Lactate 1.9 Calcium Magnesium Total Bilirubin AST ALT Alkaline Phosphatase Total Protein Albumin Globulin Albumin/Globulin Ratio COVID-19 Eval Order Covid19 [facility], 1928–1983 SARS-CoV-2 (PCR) Influenza Type A (PCR) Influenza Type B (PCR) RSV (RT-PCR) SARS-CoV-2, RNA, NAAT POSITIVE A* 10/09/20 10/09/20 Unknown Unknown WBC RBC Hgb Hct MCV MCH MCHC RDW Std Deviation RDW Coeff of Hanna Plt Count MPV Immature Gran % (Auto) Neut % (Auto) Lymph % (Auto) [place] % (Auto) Eos % (Auto) Baso % (Auto) Neut # (Auto) Lymph # (Auto) [place] # (Auto) Eos # (Auto) Baso # (Auto) Immature Gran # (Auto) Sodium Potassium Chloride Carbon Dioxide Anion Gap BUN Creatinine Est Cr Clr Drug Dosing Est GFR ( Amer) Est GFR (Non-Af Amer) BUN/Creatinine Ratio Glucose Lactate Calcium Magnesium Total Bilirubin AST ALT Alkaline Phosphatase Total Protein Albumin Globulin Albumin/Globulin Ratio COVID-19 Eval Order CovFluRsv at [facility] SARS-CoV-2 (PCR) POSITIVE A* Influenza Type A (PCR) Negative Influenza Type B (PCR) Negative RSV (RT-PCR) Negative SARS-CoV-2, RNA, NAAT (1) Abdominal pain Abdominal location: upper abdomen, unspecified Qualified Code(s): R10.10 - Upper abdominal pain, unspecified
[2020-10-10] MEDS: LORazepam 0.5 MG/1 ML VIAL IV PRN ×6 (00:46→21:46)
[2020-10-10] MEDS: MoRPHine SULFATE 4 MG/ML 1 ML CARP\\VIAL IV PRN ×4 (00:46→16:10)
[2020-10-10 03:08] LABS: Codeine Urine NEGATIVE ng/mL (<50); Hydrocodone Urine NEGATIVE ng/mL (<50); Hydromor Urine NEGATIVE ng/mL (<50); Morphine Urine 3460 ng/mL (<50); Norhydrocodone Conf Ur NEGATIVE ng/mL (<50); Noroxycodone Urine NEGATIVE ng/mL (<50); Oxycodone Urine NEGATIVE ng/mL (<50); Oxymorph Urine NEGATIVE ng/mL (<50)
[2020-10-10] MEDS: oxyCODONE HCL IR 5 MG TAB (IMMEDIATE RELEASE) PO PRN ×4 (04:30→21:45)
[2020-10-10] MEDS: CEFEPIME 2,000 MG in SYRINGE 0 ML IV SCH ×2 (06:11→17:44)
[2020-10-10] MEDS: CALCIUM CARBONATE 500 MG CHEWABLE TAB PO SCH ×3 (07:43→21:45)
[2020-10-10] MEDS: METOPROLOL TARTRATE 50 MG TAB PO SCH ×2 (07:44→21:46)
[2020-10-10] MEDS: MULTIVITAMIN TAB PO SCH (07:44)
[2020-10-10] MEDS: THIAMINE HCL 100 MG TAB PO SCH (07:44)
[2020-10-10] MEDS: ENOXAPARIN INJ 40 MG/0.4 ML SYR SQ SCH (07:45)
[2020-10-10] MEDS: PANTOprazole 40 MG TAB PO SCH (07:45)
[2020-10-10] MEDS: FOLIC ACID 1 MG TAB PO SCH (07:46)
[2020-10-10] MEDS: POTASSIUM CHLORIDE CRTAB 20 MEQ TABCR PO SCH (07:46)
[2020-10-10] MEDS: MAGNESIUM OXIDE 400 MG TAB PO SCH ×2 (07:48→22:02)
--- NOTE | 2020-10-10 21:03 | Hospitalist Progress Note ---
Date of Service October 10, 2020 Assessment & Plan (1) Abdominal pain: 40-year-old female with history of recurrent alcoholic pancreatitis, history of pancreatic pseudocyst and necrosis, alcoholism, Diastolic dysfunction, presented with abdominal pain after drinking alcohol. Abdominal pain, history of recurrent pancreatitis, pancreatic pseudocyst and necrosis Precipitated by drinking alcohol prior to admission CT abdomen pelvis: No acute process overall Lipase level within normal range GI consulted, EGD was planned for debridement of pancreatic cyst /necrosis pt is found COVID 19 positive on screening before EGD EGD was canceled/conservative management -per GI Advance diet Patient should avoid all alcohol consumption schedule GI follow-up upper endoscopy at [facility] in 2 to 4 weeks after she is completely recovered from COVID 19 test Sinus tachycardia in The setting of abdominal pain, alcohol intoxication, possible early alcohol withdrawal Echo performed about 2 weeks ago showing grade 1 diastolic dysfunction troponin Remained flat at 0.1, next is 0.1 Denies chest pain or any other cardiac symptoms Metoprolol 25 mg p.o. twice daily started/ordered for PRN IV lopressor Management of alcohol withdrawal per below Continue to monitor Alcohol withdrawal Continue AWSS alcohol withdrawal protocol, including Librium taper As needed Ativan Continue to monitor closely on telemetry unit Hypokalemia and hypomagnesemia Replaced, monitor COVID-19 infection Covid antigen negative Covid RNA NAAT positive 10/09/2020 for pre-EGD screening Patient has no symptoms of Covid infection, afebrile CT chest no infiltrates Continue to monitor closely Diastolic CHF Euvolemic Depression with anxiety Psychiatry service consult History of hypertension Not on any medication at this time DVT prophylaxis Lovenox Disposition Pending Management of medical conditions noted above Patient contemplating on outpatient alcohol rehab upon discharge Admission and Anticipated Discharge Date Admission Date: October 08, 2020 Subjective follow up visit for : recurrent Alcoholic pancreatitis /large pancreatic pseudocyst with walled off pancreatic necrosis pt denies of any GI symptoms , no nausea or vomiting , no abdominal pain tolerating diet tachycardic HR in 140's while awake , HR becomes < 100 while pt sleeping no cough or sob , no respiratory symptoms no fever or chills denies of feeling palpitation or chest discomfort anxious to be discharged home tomorrow Review of Systems Review of Systems: All systems reviewed & are unremarkable except as noted in HPI & below Physical Exam Constitutional: WD/WN, vitals as above Eyes: + anicteric sclerae ENMT: external ear and nose normal, oropharynx normal Neck: trachea midline, no thyromegaly Respiratory: normal respiratory effort, lungs clear to auscultation Cardiovascular: Rate/Rhythm: + tachycardic Gastrointestinal (Abdomen): Percussion/Palpation: abdomen soft; abdomen nontender Musculoskeletal: no cyanosis or clubbing, extremities motor strength 5/5 Skin: no rashes, warm and dry Neurologic: PERRL, EOMI, accommodation nl, no face palsy, no dysarthria Psychiatric: A+Ox3, euthymic affect Results & Data Results & Data ([facility]) Vital Signs (Past 12 Hours) Vital Signs Temp Pulse Resp BP Pulse Ox 10/10/20 19:34 38.2 C H 118 H 21 99/81 L 97 10/10/20 16:34 105 H 10/10/20 15:15 37.7 C H 121 H 21 128/99 100 10/10/20 11:39 37.1 C 97 H 18 111/95 98 (1) Abdominal pain Abdominal location: upper abdomen, unspecified Qualified Code(s): R10.10 - Upper abdominal pain, unspecified
[2020-10-10] MEDS ORDERED: METOPROLOL TARTRATE 1 MG/ML VIAL IV PRN (22:01)
[2020-10-11] MEDS: oxyCODONE HCL IR 5 MG TAB (IMMEDIATE RELEASE) PO PRN ×3 (01:45→12:45)
[2020-10-11] MEDS: LORazepam 0.5 MG/1 ML VIAL IV PRN ×3 (01:45→10:37)
[2020-10-11] MEDS: CEFEPIME 2,000 MG in SYRINGE 0 ML IV SCH (05:44)
[2020-10-11] MEDS: POTASSIUM CHLORIDE CRTAB 20 MEQ TABCR PO SCH (08:43)
[2020-10-11] MEDS: ENOXAPARIN INJ 40 MG/0.4 ML SYR SQ SCH (08:43)
[2020-10-11] MEDS: THIAMINE HCL 100 MG TAB PO SCH (08:44)
[2020-10-11] MEDS: FOLIC ACID 1 MG TAB PO SCH (08:44)
[2020-10-11] MEDS: MULTIVITAMIN TAB PO SCH (08:44)
[2020-10-11] MEDS: METOPROLOL TARTRATE 50 MG TAB PO SCH (08:44)
[2020-10-11] MEDS: PANTOprazole 40 MG TAB PO SCH (08:44)
[2020-10-11] MEDS: MoRPHine SULFATE 4 MG/ML 1 ML CARP\\VIAL IV PRN (09:17)
[2020-10-11] MEDS: CALCIUM CARBONATE 500 MG CHEWABLE TAB PO SCH (09:45)
[2020-10-11] MEDS: MAGNESIUM OXIDE 400 MG TAB PO SCH (09:45)
[2020-10-11 11:34] VITALS: PULSE 90; TEMP 99; O2SAT 99
[2020-10-11 11:35] VITALS: BP 95/68
--- NOTE | 2020-10-11 12:54 | Discharge Summary ---
Date of Service October 11, 2020 Admission HPI Per Admitting Provider History obtained from patient and records. Medical history significant for nonischemic cardiomyopathy (EF 55 to 60 TTE 2019), HTN, recurrent pancreatitis, history pancreatic pseudocyst/necrosis status post endoscopic necrosectomy, narcotic addiction as per records, chronic anemia (baseline hemoglobin 10-11), alcohol abuse. Recent confinement 2 weeks ago for recurrent alcoholic pancreatitis Yesterday patient had a bottle of wine after being clean since discharge from the hospital. Citing stress from relationship with . Depressed but denies suicidality. Drinking helps with her anxiety as per mounaen t. Patient later noted achy epigastric discomfort, poor appetite similar to pancreatitis attack. No fever, no chills. Shortness of breath and palpitations. No actual chest pain. Patient consulted ER for worsening discomfort. 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 Principal Diagnosis COVID 19 ALCOHOL WITHDRAWAL ALCOHOLIC PANCREATITIS WITH PSEUDOCYST AND PANCREATIC NECROSIS Discharge Exam Constitutional WD/WN, vitals as above Eyes + anicteric sclerae ENMT external ear and nose normal, oropharynx normal Neck trachea midline, no thyromegaly Respiratory normal respiratory effort, lungs clear to auscultation Cardiovascular RRR, no murmur, no edema Rate/Rhythm: + tachycardic Gastrointestinal (Abdomen) Percussion/Palpation: abdomen soft; abdomen nontender Musculoskeletal no cyanosis or clubbing, extremities motor strength 5/5 Skin no rashes, warm and dry Neurologic PERRL, EOMI, accommodation nl, no face palsy, no dysarthria Psychiatric A+Ox3, euthymic affect Discharge Data Allergies Allergy/AdvReac Type Severity Reaction Status Date / Time tramadol AdvReac Severe SEIZURES Verified 10/07/20 23:34 gabapentin AdvReac Hallucinati Verified 10/07/20 23:34 ng ketorolac [From Toradol] AdvReac Unknown Verified 10/07/20 23:34 Consultations 10/07/20 23:45 ED Decision to Admit Stat 10/08/20 04:34 Consult Case Management - Discharge Planning Routine Consult Psychiatry Routine 10/08/20 09:19 Consult Gastroenterology Routine Procedures Performed Operation Date: 10/09/20 11:55 <No data on this case meets the specified criteria> Ordered Studies 10/08/20 01:26 CT angio chest PE protocol Urgent 10/08/20 09:19 CT abd pelvis wo con Stat Hospital Course (1) Abdominal pain: 40-year-old female with history of recurrent alcoholic pancreatitis, history of pancreatic pseudocyst and necrosis, alcoholism, Diastolic dysfunction, presented with abdominal pain after drinking alcohol. Abdominal pain, history of recurrent pancreatitis, pancreatic pseudocyst and necrosis Precipitated by drinking alcohol prior to admission CT abdomen pelvis: No acute process overall Lipase level within normal range GI consulted, EGD was planned for debridement of pancreatic cyst /necrosis pt is found COVID 19 positive on screening before EGD EGD was canceled/conservative management -per GI Diet advanced, tolerating well, stable to be discharged home today Patient should avoid all alcohol consumption schedule GI follow-up upper endoscopy at [facility] [place] in 2 to 4 weeks after she is completely recovered from COVID 19 test Sinus tachycardia in The setting of abdominal pain, alcohol intoxication, possible early alcohol withdrawal Echo performed about 2 weeks ago showing grade 1 diastolic dysfunction troponin Remained flat at 0.1, next is 0.1 Denies chest pain or any other cardiac symptoms Heart rate improved after addition of metoprolol Management of alcohol withdrawal per below Alcohol withdrawal Continue AWSS alcohol withdrawal protocol, including Librium taper As needed Ativan Continue to monitor closely on telemetry unit Hypokalemia and hypomagnesemia Replaced, monitor COVID-19 infection Covid antigen negative Covid RNA NAAT positive 10/09/2020 for pre-EGD screening Patient has no symptoms of Covid infection, afebrile CT chest no infiltrates Diastolic CHF Euvolemic Depression with anxiety Psychiatry service consult History of hypertension Not on any medication at this time DVT prophylaxis Lovenox Disposition discharged home today wants to follow up with her family physician and arrange out patient alcohol rehab. Total Time Total Time Spent Total Time Spent (In Minutes): 35 mins Total Time Includes: Discharge Planning, Medication Reconciliation and Communication With Other Providers Discharge Plan Discharge Items Patient Disposition: Home - Self-Care Reason For Visit: TACHY, HYPOKALEMIA Discharge Diagnosis: COVID 19 ALCOHOL WITHDRAWAL ALCOHOLIC PANCREATITIS WITH PSEUDOCYST AND PANCREATIC NECROSIS Condition on Discharge: Fair Activity: Resume your previous activity Non-emergency contact: Primary Care Provider Call non-emergency contact if: you have any medication questions Follow-up/Referrals: Peterson Lr MD [Primary Care Provider] - 10/16/20 2:40 pm (PCP can provide you with psychiatry referral thru [facility]) Diet: Regular and Low Fat Addtl Attending Provider Instructions: You need to have strict abstinence from drinking all alcohol consumption Will benefit with inpatient alcohol rehab, please follow-up with your family physician/clinic case management for referral Please schedule GI follow-up upper endoscopy at [facility] [place] in 2 to 4 weeks after completely recovered from COVID 19 infection Medication: Metoprolol 25 mg 1 tablet twice daily prescription sent to your pharmacy Please follow the isolation instructions for COVID-19 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 You should restrict activities outside your home, except for getting medical care. Do not go to work, school, or public areas. Avoid using public transportation, ride-sharing, or taxis. Separate yourself from other people and animals in your home People: As much as possible, you should stay in a specific room and away from other people in your home. Also, you should use a separate bathroom, if available. Animals: You should restrict contact with pets and other animals while you are sick with COVID-19, just like you would around other people. Although there have not been reports of pets or other animals becoming sick with COVID-19, it is still recommended that people sick with COVID-19 limit contact with animals until more information is known about the virus. When possible, have another member of your household care for your animals while you are sick. If you are sick with COVID-19, avoid contact with your pet, including petting, snuggling, being kissed or licked, and sharing food. If you must care for your pet or be around animals while you are sick, wash your hands before and after you interact with pets and wear a face mask. Call ahead before visiting your doctor If you have a medical appointment, call the healthcare provider and tell them that you have or may have COVID-19. This will help the healthcare providers office take steps to keep other people from getting infected or exposed. Wear a face mask You should wear a face mask when you are around other people (e.g., sharing a room or vehicle) or pets and before you enter a healthcare providers office. If you are not able to wear a face mask (for example, because it causes trouble breathing), then people who live with you should not stay in the same room with you, or they should wear a face mask if they enter your room. Cover your coughs and sneezes Cover your mouth and nose with a tissue when you cough or sneeze. Throw used tissues in a lined trash can. Immediately wash your hands with soap and water for at least 20 seconds or, if soap and water are not available, clean your hands with an alcohol-based hand sample tester grinder that contains at least 60% alcohol. Clean your hands often Wash your hands often with soap and water for at least 20 seconds, especially after blowing your nose, coughing, or sneezing; going to the bathroom; and before eating or preparing food. If soap and water are not readily available, use an alcohol-based hand sample tester grinder with at least 60% alcohol, covering all surfaces of your hands and rubbing them together until they feel dry. Soap and water are the best option if hands are visibly dirty. Avoid touching your eyes, nose, and mouth with unwashed hands. Avoid sharing personal household items You should not share dishes, drinking glasses, cups, eating utensils, towels, or bedding with other people or pets in your home. After using these items, they should be washed thoroughly with soap and water. Clean all high-touch surfaces everyday High touch surfaces include counters, tabletops, doorknobs, bathroom fixtures, toilets, phones, keyboards, tablets, and bedside tables. Also, clean any surfaces that may have blood, stool, or body fluids on them. Use a household cleaning spray or wipe, according to the label instructions. Labels contain instructions for safe and effective use of the cleaning product including precautions you should take when applying the product, such as wearing gloves and making sure you have good ventilation during use of the product. Monitor your symptoms Seek prompt medical attention if your illness is worsening (e.g., difficulty breathing).Beforeseeking care, call your healthcare provider and tell them that you have, or are being evaluated for, COVID-19. Put on a face mask before you enter the facility. These steps will help the healthcare providers office to keep other people in the office or waiting room from getting infected or exposed. Ask your healthcare provider to call the local or [facility] health department. Persons who are placed under active monitoring or facilitated self- monitoring should follow instructions provided by their local health department or occupational health professionals, as appropriate. When working with your [facility] department check their available hours. If you have a medical emergency and need to call 911, notify the dispatch personnel that you have, or are being evaluated for COVID-19. If possible, put on a face mask before emergency medical services arrive. Discontinuing home isolation home isolation precautions /strict quarantine can be discontinued 10 days from Covid 19 diagnosis Your test for COVID-19 was positive on October 09, 2020 Pending Studies at Discharge: No Stand-Alone Forms: My [employer], Smoking Cessation Medications and DC Order Prescriptions: New metoprolol tartrate 50 mg Tablet 50 mg PO BID Qty: 60 RF: 0 Continued multivitamin Tablet 1 tab PO QAM RF: 0 calcium carbonate [Tums Extra Strength Smoothies] 300 mg (750 mg) tablet,chewable 2 tab PO TID RF: 0 magnesium 250 mg Tablet 250 mg PO QAM RF: 0 folic acid 1 mg tablet 1 mg PO DAILY RF: 0 thiamine HCl (vitamin B1) [Vitamin B-1] 100 mg Tablet 100 mg PO QAM Qty: 30 RF: 0 potassium chloride [Klor-Con M20] 20 mEq Tablet,Er Particles/Crystals 40 meq PO DAILY Qty: 14 RF: 0 Discharge Orders: Discharge Order (Routine); Ordered 10/11/20 Ordered By: Yuliana Parry/Other Patient Handouts: Addiction: Getting Help, Addiction: Your Treatment Options Admission Data Admit Date/Time: 10/08/20 01:32 Attending Provider: Yuliana Ulloa Admit Provider: Yanick Chen Primary Care Provider: Peterson Lr Other Providers: Yanick Chen ; Andrea Carcamo ; Lana Enciso ; Jairo Bhatt ; Ricco Wolff ; Jacek Holland ; Laurie Hinds ; Ilan Levin ; Maria Luisa Vasquez ; Anusha March ; Jojo Jackson ; Moo Langston I. ; Safia Maurice ; Estephania Smart ; Susi Rangel ; Wilton Ramirez ; Gopi Mendoza Other Interventions: Discharge Summary Assessment (RN) Last Done: 10/11/20 12:26
== END 2020-10-11 13:31 | disposition home or self-care (01) | DRG 438 ==
LOC: ED 21:53 → SUATTDRO 10-08 01:32 → 2S 10-08 01:32 → 2E 10-09 13:53

== ENCOUNTER 2020-11-06 20:58 | Inpatient (IN) ==
--- NOTE | 2020-11-06 21:29 | Emergency Department Note ---
History of Present Illness General Chief complaint: Illness Stated complaint: PANCREATITIS, WITHDRAW SYMPTOMS Time Seen by Provider: 11/06/20 21:27 History of Present Illness Maximum Pain Intensity: 8 This is a 40-year-old female that presents to the emergency department via private vehicle with complaints of "pancreatitis, withdrawal symptoms". The patient notes that at the beginning of the COVID-19 pandemic around November 2019 she began drinking alcohol. She notes that she drank quite regularly since that time. She then notes that she developed pancreatitis in May, and notes that she has had trouble since that time with epigastric abdominal discomfort. She has been trying to cut back on her alcohol consumption since that time notes that in working with her PCP she decided to start on a Librium taper. She notes that her last drink of alcohol was this morning and it was a glass of wine and a shot of vodka. She then notes that she started her Librium taper of 50 mg x 1 at 3:30 PM. She notes that she is feeling shaky now, and feels as though she is withdrawing. She feels very anxious. She rates her epigastric abdominal discomfort as an 8/10 which seemed return yesterday. She notes vomiting but no bright red blood in the vomit. She denies any seizure history. Home Medications Medication Instructions Recorded Confirmed Type metoprolol tartrate 50 mg PO BID #60 tab 10/11/20 11/06/20 Rx chlordiazepoxide HCl [Librium] See Rx Instructions .ROUTE .COMPLEX 11/06/20 11/06/20 History Allergies Allergy/AdvReac Type Severity Reaction Status Date / Time tramadol AdvReac Severe Seizure Verified 11/06/20 21:48 gabapentin AdvReac Unknown Hallucinati Verified 11/06/20 21:48 ng ketorolac [From Toradol] AdvReac Unknown Unknown Verified 11/06/20 21:48 Past Med/Surg History Medical History Alcohol abuse Anxiety History of narcotic addiction Hypertension Migraine Nonischemic cardiomyopathy Pancreatic necrosis Pancreatic pseudocyst Pancreatitis Surgical History H/O esophagogastroduodenoscopy Endoscopic US hx of endoscopic necrosectomy 08/2020 History of dental surgery History of laparoscopic cholecystectomy Family History Grandfather (Paternal) Diabetes Grandmother (Maternal) Diabetes Social History Smoking Status: Never smoker Second Hand Exposure: No; Hx Alcohol Use: Yes Alcohol type: wine and hard liquor Alcohol type Comment: and pt split 1 pint of liquor/week Alcohol Intake Frequency: 4 or More x per/Week Alcohol Intake Frequency Comment: 2-3 alcoholic beverages approx q. other day Hx Substance Use: Yes Prescribed Medications: Painkillers Preferred Language: Gibraltarian Communication Ability: Effective Scout Executive Required: No Beliefs That Will Affect Care: None marital status: Current Living Situation: Spouse How many Children do You have: 5 Feels Safe at Home: Yes Assistive Devices: Glasses Review of Systems A total of 10 systems reviewed and were otherwise negative Physical Exam Vital Signs Vital Signs - 24 hr 11/06/20 20:59 11/06/20 21:09 11/06/20 21:20 Temperature 36.0 C L Temperature Source Temporal Artery Scan Pulse Rate 86 127 H Respiratory Rate 18 20 Respiratory Effort / Characteristics Non-Labored Spontaneous Respiratory Depth Normal Respiratory Pattern Regular Blood Pressure 97/51 L Blood Pressure Mean 66 Blood Pressure Position Sitting Pulse Oximetry 97 100 98 Oxygen Delivery Method Room Air Room Air Sepsis Recent Fever Within 48 Hours No Sepsis New/Unexplained Change in Mental Status No Sepsis Action Taken by Nursing No Action Required 11/06/20 21:49 11/06/20 22:00 11/06/20 22:30 Temperature Temperature Source Pulse Rate 132 H 133 H 118 H Respiratory Rate 22 20 18 Respiratory Effort / Characteristics Respiratory Depth Respiratory Pattern Blood Pressure 139/96 129/87 118/76 Blood Pressure Mean 111 96 91 Blood Pressure Position Pulse Oximetry 97 94 96 Oxygen Delivery Method Sepsis Recent Fever Within 48 Hours Sepsis New/Unexplained Change in Mental Status Sepsis Action Taken by Nursing 11/06/20 23:00 11/06/20 23:30 11/07/20 00:00 Temperature Temperature Source Pulse Rate 121 H 121 H 118 H Respiratory Rate 22 18 20 Respiratory Effort / Characteristics Respiratory Depth Respiratory Pattern Blood Pressure 118/78 109/77 100/69 Blood Pressure Mean 87 86 79 Blood Pressure Position Pulse Oximetry 95 100 95 Oxygen Delivery Method Sepsis Recent Fever Within 48 Hours Sepsis New/Unexplained Change in Mental Status Sepsis Action Taken by Nursing 11/07/20 00:30 11/07/20 01:00 Temperature Temperature Source Pulse Rate 138 H 114 H Respiratory Rate 20 20 Respiratory Effort / Characteristics Respiratory Depth Respiratory Pattern Blood Pressure 107/83 115/78 Blood Pressure Mean 95 86 Blood Pressure Position Pulse Oximetry 98 91 Oxygen Delivery Method Sepsis Recent Fever Within 48 Hours Sepsis New/Unexplained Change in Mental Status Sepsis Action Taken by Nursing VITAL SIGNS - Vital signs and nursing notes were reviewed. Triage vital signs relatively stable however I will note that upon afternoon examination room mouna ent was found of a heart rate in the 130s and 140s. GENERAL -40 -year-old female appearing her stated age who is in no acute distress but appears anxious and does have some tremor to the upper extremities, specifically the hands when outstretched in front of her. Communicates well with provider and answers questions appropriately. SKIN - Without rashes. No meningeal or petechial rash. HEAD - NC/AT. EYES - PERRL with EOMI bilaterally. Sclera anicteric. EARS - No deformities of external structures noted on gross examination bilaterally. NOSE - Midline and without cyanosis. No epistaxis or purulent drainage noted. MOUTH/OROPHARYNX - Without perioral cyanosis. NECK - Neck with FROM. No nuchal rigidity. LUNGS - Chest wall symmetric without accessory muscle use, intercostals retractions, or central cyanosis. Normal vesicular breath sounds CTA B/L. No wheezes, rales, or rhonchi appreciated. CARDIAC - RRR with S1/S2. No murmur, rubs, or gallops appreciated. ABDOMEN - Abdominal contour normal without pulsations or visible masses. BS normoactive all four quadrants. Epigastric abd TTP noted. No palpable masses, hepatosplenomegaly, or ascites noted. EXTREMITIES - No clubbing or peripheral cyanosis. No pretibial edema present. +5/5 strength noted in UE/LE bilaterally. NEUROLOGIC - Cranial nerves II through XII grossly intact. Sensory intact to light touch throughout. PSYCH - A&O, and cooperates fully with examiner. Pt is very pleasant and interacts well with examiner. Course Administered Medications Chlordiazepoxide HCl (Chlordiazepoxide Hcl 25 Mg Cap) 25 mg PO Q6H DONOVAN; Taper Stop: 11/09/20 05:59 Last Admin: 11/07/20 05:22 Dose: 25 mg Documented by: [id number] Potassium Chloride 20 meq/ (Lactated Ringer's) 1,010 mls @ 100 mls/hr IV .Q10H6M DONOVAN Stop: 11/08/20 02:24 Last Admin: 11/07/20 03:02 Dose: 100 mls/hr Documented by: [id number] Discontinued Medications Chlordiazepoxide HCl (Chlordiazepoxide Hcl 25 Mg Cap) 25 mg PO NOW STA Stop: 11/07/20 00:57 Last Admin: 11/07/20 01:14 Dose: 25 mg Documented by: [id number] Hydromorphone HCl (Hydromorphone Inj 0.5 Mg/0.5 Ml Syr) 0.5 mg IV NOW STA Stop: 11/06/20 22:12 Last Admin: 11/06/20 22:18 Dose: 0.5 mg Documented by: [id number] Multivitamins 10 ml/ Thiamine HCl 100 mg/ Folic Acid 1 mg/Sodium Chloride 1,011.2 mls @ 1,011.2 mls/hr IV .Q1H ONE Stop: 11/06/20 22:37 Last Infusion: 11/06/20 23:30 Dose: 0 mls/hr Documented by: [id number] Admin: 11/06/20 22:19 Dose: 1,011.2 mls/hr Documented by: [id number] Lorazepam (Ativan) 1 mg in 2 mls @ 2 mls/min IV NOW STA Stop: 11/06/20 21:39 Last Admin: 11/06/20 21:51 Dose: 2 mls/min Documented by: [id number] Potassium Chloride (K Derek / Wtr) 10 meq in 100 mls @ 100 mls/hr IV Q1H DONOVAN Stop: 11/07/20 00:14 Last Infusion: 11/07/20 00:40 Dose: 0 mls/hr Documented by: [id number] Admin: 11/06/20 23:28 Dose: 100 mls/hr Documented by: [id number] Infusion: 11/06/20 23:28 Dose: 0 mls/hr Documented by: [id number] Admin: 11/06/20 22:23 Dose: 100 mls/hr Documented by: [id number] Lorazepam (Ativan) 1 mg in 2 mls @ 2 mls/min IV NOW STA Stop: 11/06/20 22:29 Last Admin: 11/06/20 23:05 Dose: 2 mls/min Documented by: [id number] Magnesium Sulfate/Dextrose (Magnesium Sulfate / D5w) 1 gm in 100 mls @ 100 mls/ hr IV NOW STA Stop: 11/06/20 23:43 Last Infusion: 11/07/20 00:05 Dose: 0 mls/hr Documented by: [id number] Admin: 11/06/20 23:05 Dose: 100 mls/hr Documented by: [id number] Lactated Ringer's (Lr) 1,000 mls @ 500 mls/hr IV .Q2H ONE Stop: 11/07/20 01:42 Last Infusion: 11/07/20 02:59 Dose: 0 mls/hr Documented by: [id number] Admin: 11/07/20 00:14 Dose: 500 mls/hr Documented by: [id number] Magnesium Sulfate/Dextrose (Magnesium Sulfate / D5w) 1 gm in 100 mls @ 50 mls/hr IV Q2H DONOVAN Stop: 11/07/20 04:49 Last Admin: 11/07/20 03:42 Dose: 50 mls/hr Documented by: [id number] Infusion: 11/07/20 03:14 Dose: 50 mls/hr Documented by: [id number] Admin: 11/07/20 01:14 Dose: 50 mls/hr Documented by: [id number] Ioversol (Ioversol 100ml) 100 ml IV ONCE ONE Stop: 11/06/20 22:51 Last Admin: 11/06/20 22:51 Dose: 92 ml Documented by: [id number] Metoprolol Tartrate (Metoprolol Tartrate 50 Mg Tab) 25 mg PO NOW STA Stop: 11/07/20 01:09 Last Admin: 11/07/20 01:30 Dose: 25 mg Documented by: [id number] Morphine Sulfate (Morphine Sulfate 2 Mg/Ml Carp) 2 mg IV Q12H PRN PRN Reason: Pain Stop: 11/20/20 23:46 Last Admin: 11/07/20 03:03 Dose: 2 mg Documented by: [id number] Ondansetron HCl (Ondansetron Inj 2 Mg/Ml 2 Ml Vial) 4 mg IV NOW STA Stop: 11/06/20 21:39 Last Admin: 11/06/20 21:50 Dose: 4 mg Documented by: [id number] Oxycodone HCl (Oxycodone Hcl Ir 5 Mg Tab (Immediate Release)) 5 - 10 mg PO QID PRN PRN Reason: Pain Stop: 11/20/20 23:44 Last Admin: 11/07/20 00:13 Dose: 10 mg Documented by: [id number] Potassium Chloride (Potassium Chloride 10 Meq Tabcr) 50 meq PO NOW STA Stop: 11/07/20 00:44 Last Admin: 11/07/20 01:14 Dose: 50 meq Documented by: [id number] Potassium Chloride (Potassium Chloride 10 Meq Tabcr) 50 meq PO ONE ONE Stop: 11/07/20 04:01 Last Admin: 11/07/20 04:21 Dose: 50 meq Documented by: [id number] Potassium Chloride (Potassium Chloride 10 Meq Tabcr) 50 meq PO ONE ONE Stop: 11/07/20 02:31 Last Admin: 11/07/20 03:00 Dose: 50 meq Documented by: [id number] Critical Care Time Total Critical Care Time: 39 I have personally spent about 39 minutes of critical care time in the direct management of this patient. Indication is tachycardia in the setting of alcohol withdrawal with significant hyponatremia, hypokalemia as well as elevated troponin. This includes bedside care, interpretation of diagnostic studies, and testing, discussion with consultants, patient, and other required patient management activities. This 39 minutes is in excess of all separately billable procedures. Medical Decision Making Laboratory Data Result diagrams: 11/06/20 21:13 11/07/20 00:42 Lab Results 11/06/20 11/06/20 11/06/20 Range/Units 21:13 21:13 21:13 WBC 6.21 (4.8-10.8) K/uL RBC 4.42 (4.2-5.4) M/uL Hgb 15.1 (12.0-16.0) g/dL Hct 42.5 (37-47) % MCV 96.2 (80-100) fL MCH 34.2 H (25-34) pg MCHC 35.5 (32-36) g/dL RDW Std Deviation 49.5 H (36.4-46.3) fL RDW Coeff of Hanna 14.0 (11.5-14.5) % Plt Count 373 (130-400) K/uL MPV 10.2 (7.4-10.4) fL Immature Gran % (Auto) 0.3 % Neut % (Auto) 59.7 % Lymph % (Auto) 22.2 % [place] % (Auto) 17.2 % Eos % (Auto) 0.0 % Baso % (Auto) 0.6 % Neut # (Auto) 3.70 (1.4-6.5) K/uL Lymph # (Auto) 1.38 (1.2-3.4) K/uL [place] # (Auto) 1.07 H (0.11-0.59) K/uL Eos # (Auto) 0.00 (0-0.5) K/uL Baso # (Auto) 0.04 (0-0.2) K/uL Immature Gran # (Auto) 0.02 (0.00-0.02) K/uL PT 13.6 H (9.0-12.0) Seconds INR 1.3 H (0.9-1.1) APTT 23.9 (21.0-31.0) Seconds PTT Ratio 0.9 Sodium 127 L (136-145) mmol/L Potassium 2.1 L* (3.5-5.1) mmol/L Chloride 72 L (98-107) mmol/L Carbon Dioxide 39 H (21-32) mmol/L Anion Gap 15.0 H (3-11) BUN 11 (7-18) mg/dl Creatinine 1.11 (0.6-1.2) mg/dl Est Cr Clr Drug Dosing 55.2 ml/min Est GFR ( Amer) 71.4 Est GFR (Non-Af Amer) 61.6 BUN/Creatinine Ratio 9.5 L (10-20) Glucose 177 H (70-99) mg/dl Osmolality (280-300) mOsm/kg Calcium 9.1 (8.5-10.1) mg/dl Magnesium 1.4 L (1.8-2.4) mg/dl Total Bilirubin 2.9 H (0.2-1) mg/dl AST 382 H (15-37) U/L ALT 111 H (12-78) U/L Alkaline Phosphatase 476 H (45-117) U/L Troponin I 0.119 H* (0-0.045) ng/ml Total Protein 8.7 H (6.4-8.2) gm/dl Albumin 3.2 L (3.4-5.0) gm/dl Globulin 5.5 H (2.5-4.0) gm/dl Albumin/Globulin Ratio 0.6 L (0.9-2) Lipase 343 (73-393) U/L TSH 2.000 (0.300-4.500) uIu/ml HCG, Qual (Negative) Ethyl Alcohol mg/dL (0-3) mg/dl COVID-19 Eval Order SARS-CoV-2, RNA, NAAT (NEGATIVE) 11/06/20 11/06/20 11/06/20 Range/Units 21:13 21:13 21:50 WBC (4.8-10.8) K/uL RBC (4.2-5.4) M/uL Hgb (12.0-16.0) g/dL Hct (37-47) % MCV (80-100) fL MCH (25-34) pg MCHC (32-36) g/dL RDW Std Deviation (36.4-46.3) fL RDW Coeff of Hanna (11.5-14.5) % Plt Count (130-400) K/uL MPV (7.4-10.4) fL Immature Gran % (Auto) % Neut % (Auto) % Lymph % (Auto) % [place] % (Auto) % Eos % (Auto) % Baso % (Auto) % Neut # (Auto) (1.4-6.5) K/uL Lymph # (Auto) (1.2-3.4) K/uL [place] # (Auto) (0.11-0.59) K/uL Eos # (Auto) (0-0.5) K/uL Baso # (Auto) (0-0.2) K/uL Immature Gran # (Auto) (0.00-0.02) K/uL PT (9.0-12.0) Seconds INR (0.9-1.1) APTT (21.0-31.0) Seconds PTT Ratio Sodium (136-145) mmol/L Potassium (3.5-5.1) mmol/L Chloride (98-107) mmol/L Carbon Dioxide (21-32) mmol/L Anion Gap (3-11) BUN (7-18) mg/dl Creatinine (0.6-1.2) mg/dl Est Cr Clr Drug Dosing ml/min Est GFR ( Amer) Est GFR (Non-Af Amer) BUN/Creatinine Ratio (10-20) Glucose (70-99) mg/dl Osmolality 284 (280-300) mOsm/kg Calcium (8.5-10.1) mg/dl Magnesium (1.8-2.4) mg/dl Total Bilirubin (0.2-1) mg/dl AST (15-37) U/L ALT (12-78) U/L Alkaline Phosphatase (45-117) U/L Troponin I (0-0.045) ng/ml Total Protein (6.4-8.2) gm/dl Albumin (3.4-5.0) gm/dl Globulin (2.5-4.0) gm/dl Albumin/Globulin Ratio (0.9-2) Lipase (73-393) U/L TSH (0.300-4.500) uIu/ml HCG, Qual Negative (Negative) Ethyl Alcohol mg/dL < 3.0 (0-3) mg/dl COVID-19 Eval Order SARS-CoV-2, RNA, NAAT (NEGATIVE) 11/07/20 11/07/20 11/07/20 Range/Units 00:20 00:20 00:42 WBC (4.8-10.8) K/uL RBC (4.2-5.4) M/uL Hgb (12.0-16.0) g/dL Hct (37-47) % MCV (80-100) fL MCH (25-34) pg MCHC (32-36) g/dL RDW Std Deviation (36.4-46.3) fL RDW Coeff of Hanna (11.5-14.5) % Plt Count (130-400) K/uL MPV (7.4-10.4) fL Immature Gran % (Auto) % Neut % (Auto) % Lymph % (Auto) % [place] % (Auto) % Eos % (Auto) % Baso % (Auto) % Neut # (Auto) (1.4-6.5) K/uL Lymph # (Auto) (1.2-3.4) K/uL [place] # (Auto) (0.11-0.59) K/uL Eos # (Auto) (0-0.5) K/uL Baso # (Auto) (0-0.2) K/uL Immature Gran # (Auto) (0.00-0.02) K/uL PT (9.0-12.0) Seconds INR (0.9-1.1) APTT (21.0-31.0) Seconds PTT Ratio Sodium 133 L (136-145) mmol/L Potassium (3.5-5.1) mmol/L Chloride (98-107) mmol/L Carbon Dioxide (21-32) mmol/L Anion Gap (3-11) BUN (7-18) mg/dl Creatinine (0.6-1.2) mg/dl Est Cr Clr Drug Dosing ml/min Est GFR ( Amer) Est GFR (Non-Af Amer) BUN/Creatinine Ratio (10-20) Glucose (70-99) mg/dl Osmolality (280-300) mOsm/kg Calcium (8.5-10.1) mg/dl Magnesium (1.8-2.4) mg/dl Total Bilirubin (0.2-1) mg/dl AST (15-37) U/L ALT (12-78) U/L Alkaline Phosphatase (45-117) U/L Troponin I 0.114 H* (0-0.045) ng/ml Total Protein (6.4-8.2) gm/dl Albumin (3.4-5.0) gm/dl Globulin (2.5-4.0) gm/dl Albumin/Globulin Ratio (0.9-2) Lipase (73-393) U/L TSH (0.300-4.500) uIu/ml HCG, Qual (Negative) Ethyl Alcohol mg/dL (0-3) mg/dl COVID-19 Eval Order Covid19 IDNow On license of [facility] SARS-CoV-2, RNA, NAAT NEGATIVE (NEGATIVE) Imaging Data Radiologist's Impression: CT ABDOMEN & PELVIS With Contrast: Comparison made to prior study dated March 08, 2020. A cystogastrostomy tube remains in place. No fluid collection is seen in the region of the tube; however, there is a small residual abnormal fluid collection in the left upper quadrant just lateral to the tube measuring 15 x 28 x 13 mm. Minimal residual infiltration is still seen around the pancreatic tail. No new inflammation or increasing fluid collection is evident. Severe fatty infiltration of the liver. Radiologist: Bradley Javed MD Study ready at 23:02 and initial results transmitted at 23:08 MDM Narrative Patient was seen and evaluated as above in room C9. Review was performed of nursing notes and vital signs. I did review pertinent previous visits and patient history. After obtaining a thorough history and physical examination the above work up was performed. Patient presents to us today with abdominal pain, vomiting, shaking of the hands when she holds arms outstretched, feeling anxious, and elevated heart rate. She is nontoxic on examination but does eri ear anxious. No chest pain or shortness of breath. No fevers or chills. She is tachycardic in regard to vital signs. Otherwise stable. Options of care were discussed with the patient. IV access established. Labs were drawn. She was medicated with IV Zofran, IV banana bag, IV Ativan, and IV Dilaudid. I did receive a phone call regarding critical values of the patient's troponin and potassium. I did start to replete the patient's potassium intravenously here. An EKG was obtained given the patient's presentation and tachycardic state which revealed sinus tachycardia rate of 130 bpm. There is T wave inversion in lead III as well as ST depressions noted in lead V2, V3, V4, and V5. No ST elevation. This was compared EKG of October 09, 2020. Significant changes have occurred. However, I will note that when compared to the EKG of October 07, 2020 with a similar heart rate, similar changes were noted. These changes are likely a combination of the patient's alcohol withdrawal causing tachycardia. Efforts were made to decrease the patient's heart rate with Ativan and she was also hydrated as previously described above with banana bag. She was medicated with analgesics. A CT scan was obtained of the abdomen pelvis given her history. Results as above. This does appear to be somewhat improved compared to previous. I did call [facility], the radiology [facility], to verify that the comparison study date was October 08 and not March 08 as dictated above. They did add an addendum that the comparison study was October 08. At this point I do believe the patient would benefit from inpatient management. Patient amenable to staying. Please refer to further documentation regarding her stay. While in the department, I personally reevaluated the patient. The patient was educated upon management, educated upon todays findings/results, educated upon importance management and was admitted to the hospital. Case discussed with the hospitalist. Please refer to further documentation regarding her stay. MELD SCORE: 23 based off today's labs to include creatinine, bilirubin, INR and sodium. Case was discussed with the attending physician. An order was placed for continuous cardiac monitoring. The monitor shows a rate of 130 with sinus tachycardia rhythm. GCS: 15 In the evaluation and treatment of this patient the following differential diagnoses were entertained: Sepsis, SIRS, infection, dehydration, esophagitis, pancreatitis, alcohol withdrawal, among others. Impression & Plan Alcohol withdrawal, Hypokalemia, Acute hyponatremia, Alcohol abuse, Hypomagnesemia, Tachycardia Discharge Plan Visit Data Chief Complaint: Illness Stated Complaint: PANCREATITIS, WITHDRAW SYMPTOMS ED Provider: [facility] ED Midlevel Provider: Delon Sahni Discharge Problem: Alcohol withdrawal, Hypokalemia, Acute hyponatremia, Alcohol abuse, Hypomagnesemia, Tachycardia Patient Disposition: Admitted As Inpatient Condition: Good Discharge Instructions Interventions: ED Discharge Assessment Last Done: 11/07/20 01:50
[2020-11-06] MEDS ORDERED: ONDANSETRON INJ 2 MG/ML 2 ML VIAL IV STA (21:38)
[2020-11-06] MEDS ORDERED: MULTI-VITAMIN INFUSION 10 ML, THIAMINE HCL 100 MG, FOLIC ACID 1 MG in SODIUM CHLORIDE 0... IV ONE (21:38)
[2020-11-06] MEDS ORDERED: LORazepam 1 MG/2 ML VIAL IV STA ×2 (21:38→22:28)
[2020-11-06 21:47] LABS: Basophils # (auto) 0.04 K/uL (0-0.2); Basophils % (auto) 0.6 %; Hematocrit (blood only) 42.5 % (37-47); Hemoglobin 15.1 g/dL (12.0-16.0); Immature Granulocytes # (auto) 0.02 K/uL (0.00-0.02); Immature Granulocytes % (auto) 0.3 %; Lymphocytes # (auto) 1.38 K/uL (1.2-3.4); Lymphocytes % (auto) 22.2 %; Mean Corpuscular Hemoglobin 34.2 pg (25-34); Mean Corpuscular Hgb Conc 35.5 g/dL (32-36); Mean Corpuscular Volume 96.2 fL (80-100); Mean Platelet Volume 10.2 fL (7.4-10.4); Monocytes # (auto) 1.07 K/uL (0.11-0.59); Monocytes % (auto) 17.2 %; Neutrophils % (auto) 59.7 %; Platelet Count 373 K/uL (130-400); RDW Standard Deviation 49.5 fL (36.4-46.3); Red Blood Count 4.42 M/uL (4.2-5.4); White Blood Count 6.21 K/uL (4.8-10.8)
[2020-11-06 21:57] LABS: INR 1.3 (0.9-1.1); Partial Thromboplastin Ratio 0.9; Partial Thromboplastin Time 23.9 Seconds (21.0-31.0); Prothrombin Time 13.6 Seconds (9.0-12.0)
[2020-11-06 22:09] LABS: Albumin Globulin Ratio 0.6 (0.9-2); Albumin Level 3.2 gm/dl (3.4-5.0); BUN Creatinine Ratio 9.5 (10-20); Bilirubin,Total 2.9 mg/dl (0.2-1); Calcium 9.1 mg/dl (8.5-10.1); Creatinine Clr Calc Pharmacy 55.2 ml/min; Est GFR (African American) 71.4; Est GFR (Non-African American) 61.6; Globulin 5.5 gm/dl (2.5-4.0); Magnesium 1.4 mg/dl (1.8-2.4); Potassium 2.1 mmol/L (3.5-5.1); Total Protein 8.7 gm/dl (6.4-8.2); Troponin I 0.119 ng/ml (0-0.045)
[2020-11-06] MEDS ORDERED: HYDROmorphone INJ 0.5 MG/0.5 ML SYR IV STA (22:11)
[2020-11-06] MEDS: POTASSIUM CHLORIDE / WTR 10 MEQ/100 ML PLCT IV SCH ×2 (22:23→23:28)
[2020-11-06 22:36] LABS: Pregnancy Test, Serum Negative (Negative)
[2020-11-06] MEDS ORDERED: MAGNESIUM SULFATE / D5W 1 GM/100 ML BAG IV STA (22:44)
[2020-11-06] MEDS ORDERED: IOVERSOL 100ml IV ONE (22:50)
[2020-11-06] MEDS ORDERED: LACTATED RINGER'S 1,000 ML IV ONE (23:43)
[2020-11-06] MEDS ORDERED: oxyCODONE HCL IR 5 MG TAB (IMMEDIATE RELEASE) PO PRN (23:45)
[2020-11-06] MEDS ORDERED: ACETAMINOPHEN 325 MG TAB PO PRN (23:46)
[2020-11-06] MEDS ORDERED: MoRPHine SULFATE 2 MG/ML CARP IV PRN (23:47)
[2020-11-07] MEDS ORDERED: POTASSIUM CHLORIDE 10 MEQ TABCR PO STA (00:43)
[2020-11-07] MEDS ORDERED: chlordiazePOXIDE ALCOHOL WITHDRAWL 25MG PO STA (00:44)
[2020-11-07] MEDS ORDERED: MoRPHine SULFATE 2 MG/ML CARP IV PRN (00:44)
[2020-11-07] MEDS ORDERED: LORazepam 2 MG/4 ML VIAL IV PRN (00:47)
[2020-11-07] MEDS ORDERED: LORazepam 3 MG/6 ML VIAL IV PRN (00:47)
[2020-11-07] MEDS ORDERED: ATIVAN IV ALCOHOL WITHDRAWL IV PRN (00:47)
[2020-11-07] MEDS ORDERED: LORazepam 1 MG/2 ML VIAL IV PRN (00:47)
--- NOTE | 2020-11-07 00:48 | History & Physical Report ---
Date of Service November 07, 2020 Assessment & Plan (1) Tachycardia: Tachycardia: Multifactorial : Alcohol withdrawal recurrent alcoholic pancreatitis Electrolyte abnormalities, clinical dehydration Troponin elevation secondary to tachycardia nonischemic cardiomyopathy (EF 55 to 60 TTE 2019), patient on the dry side HTN, BP on the lower side history pancreatic pseudocyst/necrosis status post endoscopic necrosectomy, stable fluid collection on repeat CT Outpatient endoscopic drainage at [facility] contemplated end of the month as per patient. narcotic addiction as per records Anxiety/depression, currently not on medications. Chronic anemia, hemoglobin better than baseline secondary to hemoconcentration Medical telemetry IVF JANUSZ S, DT precautions Replace electrolytes Judicious narcotic use given history narcotic addiction Facilitate home beta-penny Follow troponin Social service RE discharge planning, patient to consider alcohol rehab DVT prophylaxis per Lovenox subcu Full code Text document was generated using [employer] recognition software. It may contain grammatical or spelling errors. Kindly contact undersigned for clarification of any documentation item in question. History of Present Illness Chief Complaint: Palpitations, alcohol withdrawal Primary Care Provider: Marianela Arroyo MD History obtained from patient and records. Medical history significant for nonischemic cardiomyopathy (EF 55 to 60 TTE 2019), HTN, recurrent pancreatitis, history pancreatic pseudocyst/necrosis status post endoscopic necrosectomy, narcotic addiction as per records, chronic anemia (baseline hemoglobin 10-11), alcohol abuse. Recent confinement last month for alcohol withdrawal and alcoholic pancreatitis. Endoscopic drainage of pancreatic fluid collection deferred due to asymptomatic positive COVID-19 screen. Procedure scheduled at [facility] end of October, pending negative COVID- 19 test. Patient went back to drinking alcohol shortly after discharge. Persistent but tolerable achy upper abdominal pain from discharge from last confinement. Patient slowly tapering off alcohol intake in her desire to quit the last few days. Usual abdominal pain with nausea and emesis. No diarrhea. No fever, no chills. Last drink was yesterday morning. Video appointment with PCP yesterday to discuss concerns about potential alcohol withdrawal seizures. PCP prescribed Librium taper. Palpitations, tachycardia noted after first dose of Librium. No chest pain, no S OB. Patient consulted ER with worsening symptoms. 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 Allergies Allergy/AdvReac Type Severity Reaction Status Date / Time tramadol AdvReac Severe Seizure Verified 11/06/20 21:48 gabapentin AdvReac Unknown Hallucinati Verified 11/06/20 21:48 ng ketorolac [From Toradol] AdvReac Unknown Unknown Verified 11/06/20 21:48 Home Medications Medication Instructions Recorded Confirmed Type metoprolol tartrate 50 mg PO BID #60 tab 10/11/20 11/06/20 Rx chlordiazepoxide HCl [Librium] See Rx Instructions .ROUTE .COMPLEX 11/06/20 11/06/20 History Past Med/Surg History Medical History Alcohol abuse Anxiety History of narcotic addiction Hypertension Migraine Nonischemic cardiomyopathy Pancreatic necrosis Pancreatic pseudocyst Pancreatitis Surgical History H/O esophagogastroduodenoscopy Endoscopic US hx of endoscopic necrosectomy 08/2020 History of dental surgery History of laparoscopic cholecystectomy Family History Grandfather (Paternal) Diabetes Grandmother (Maternal) Diabetes Social History Smoking Status: Never smoker Second Hand Exposure: No; Hx Alcohol Use: Yes Alcohol type: wine and hard liquor Alcohol type Comment: and pt split 1 pint of liquor/week Alcohol Intake Frequency: 4 or More x per/Week Alcohol Intake Frequency Comment: 2-3 alcoholic beverages approx q. 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 Beliefs That Will Affect Care: None marital status: Current Living Situation: Spouse How many Children do You have: 5 Feels Safe at Home: Yes Assistive Devices: Glasses Review of Systems Review of Systems: As per HPI, all 10 systems reviewed, all other ROS negative Physical Exam 2 Physical Exam: GENERAL: uncomfortable, tearful, no respiratory distress SKIN: Normal color, warm HEENT: [place] palpebral conjunctivae, no ptosis, dry buccal mucosa NECK : Supple, no tenderness CHEST : Decreased breath sounds , no tenderness HEART : Tachycardic , no obvious murmurs ABDOMEN: Some distention, epigastric tenderness EXTREMITIES : No LE swelling/tenderness, no other conspicuous deformities noted NEUROLOGIC : Coherent, no facial asymmetry, no other gross focality Results & Data Results & Data ([facility]) Vital Signs (Past 12 Hours) Vital Signs Temp Pulse Resp BP Pulse Ox 11/06/20 23:00 121 H 22 118/78 95 11/06/20 22:30 118 H 18 118/76 96 11/06/20 22:00 133 H 20 129/87 94 11/06/20 21:49 132 H 22 139/96 97 11/06/20 21:20 127 H 20 98 11/06/20 21:09 100 11/06/20 20:59 36.0 C L 86 18 97/51 L 97 Laboratory Results Laboratory Results WBC 6.21 K/uL (4.8-10.8) 11/06/20 21:13 RBC 4.42 M/uL (4.2-5.4) 11/06/20 21:13 Hgb 15.1 g/dL (12.0-16.0) 11/06/20 21:13 Hct 42.5 % (37-47) 11/06/20 21:13 MCV 96.2 fL (80-100) 11/06/20 21:13 MCH 34.2 pg (25-34) H 11/06/20 21:13 MCHC 35.5 g/dL (32-36) 11/06/20 21:13 RDW Std Deviation 49.5 fL (36.4-46.3) H 11/06/20 21:13 RDW Coeff of Hanna 14.0 % (11.5-14.5) 11/06/20 21:13 Plt Count 373 K/uL (130-400) 11/06/20 21:13 MPV 10.2 fL (7.4-10.4) 11/06/20 21:13 Immature Gran % (Auto) 0.3 % 11/06/20 21:13 Neut % (Auto) 59.7 % 11/06/20 21:13 Lymph % (Auto) 22.2 % 11/06/20 21:13 [place] % (Auto) 17.2 % 11/06/20 21:13 Eos % (Auto) 0.0 % 11/06/20 21:13 Baso % (Auto) 0.6 % 11/06/20 21:13 Neut # (Auto) 3.70 K/uL (1.4-6.5) 11/06/20 21:13 Lymph # (Auto) 1.38 K/uL (1.2-3.4) 11/06/20 21:13 [place] # (Auto) 1.07 K/uL (0.11-0.59) H 11/06/20 21:13 Eos # (Auto) 0.00 K/uL (0-0.5) 11/06/20 21:13 Baso # (Auto) 0.04 K/uL (0-0.2) 11/06/20 21:13 Immature Gran # (Auto) 0.02 K/uL (0.00-0.02) 11/06/20 21:13 PT 13.6 Seconds (9.0-12.0) H 11/06/20 21:13 INR 1.3 (0.9-1.1) H 11/06/20 21:13 APTT 23.9 Seconds (21.0-31.0) 11/06/20 21:13 PTT Ratio 0.9 11/06/20 21:13 Sodium 127 mmol/L (136-145) L 11/06/20 21:13 Potassium 2.1 mmol/L (3.5-5.1) L* 11/06/20 21:13 Chloride 72 mmol/L (98-107) L 11/06/20 21:13 Carbon Dioxide 39 mmol/L (21-32) H 11/06/20 21:13 Anion Gap 15.0 (3-11) H 11/06/20 21:13 BUN 11 mg/dl (7-18) 11/06/20 21:13 Creatinine 1.11 mg/dl (0.6-1.2) 11/06/20 21:13 Est Cr Clr Drug Dosing 55.2 ml/min 11/06/20 21:13 Est GFR ( Amer) 71.4 11/06/20 21:13 Est GFR (Non-Af Amer) 61.6 11/06/20 21:13 BUN/Creatinine Ratio 9.5 (10-20) L 11/06/20 21:13 Glucose 177 mg/dl (70-99) H 11/06/20 21:13 Osmolality 284 mOsm/kg (280-300) 11/06/20 21:13 Calcium 9.1 mg/dl (8.5-10.1) 11/06/20 21:13 Magnesium 1.4 mg/dl (1.8-2.4) L 11/06/20 21:13 Total Bilirubin 2.9 mg/dl (0.2-1) H 11/06/20 21:13 AST 382 U/L (15-37) H 11/06/20 21:13 ALT 111 U/L (12-78) H 11/06/20 21:13 Alkaline Phosphatase 476 U/L (45-117) H 11/06/20 21:13 Troponin I 0.119 ng/ml (0-0.045) H* 11/06/20 21:13 Total Protein 8.7 gm/dl (6.4-8.2) H 11/06/20 21:13 Albumin 3.2 gm/dl (3.4-5.0) L 11/06/20 21:13 Globulin 5.5 gm/dl (2.5-4.0) H 11/06/20 21:13 Albumin/Globulin Ratio 0.6 (0.9-2) L 11/06/20 21:13 Lipase 343 U/L (73-393) 11/06/20 21:13 TSH 2.000 uIu/ml (0.300-4.500) 11/06/20 21:13 HCG, Qual Negative (Negative) 11/06/20 21:13 Ethyl Alcohol mg/dL < 3.0 mg/dl (0-3) 11/06/20 21:50 COVID-19 Eval Order Covid19 [facility] 11/07/20 00:[address] and pelvis initial read: A cysto gastrostomy tube remains in place without fluid collection. Small residual abnormal fluid collection left upper quadrant lateral to tube measuring 15 x 28 x 13 mm. Minimal residual infiltration still seen around pancreatic tail. No new inflammation or increasing fluid collection is evident. Severe fatty infiltration of the liver. EKG as per my interpretation: Rate 130, sinus tachycardia, normal axis, ST depression inferior and anterolateral leads.
[2020-11-07] MEDS ORDERED: chlordiazePOXIDE HCl 25 MG CAP PO STA (00:56)
[2020-11-07] MEDS ORDERED: METOPROLOL TARTRATE 50 MG TAB PO STA (01:08)
[2020-11-07 01:12] LABS: Troponin I 0.114 ng/ml (0-0.045)
[2020-11-07] MEDS: MAGNESIUM SULFATE / D5W 1 GM/100 ML BAG IV SCH ×2 (01:14→03:42)
[2020-11-07] MEDS ORDERED: chlordiazePOXIDE HCl 25 MG CAP PO SCH (02:25)
[2020-11-07] MEDS ORDERED: POTASSIUM CHLORIDE 10 MEQ TABCR PO ONE ×2 (02:30→04:00)
[2020-11-07 02:49] LABS: Appearance Urine Cloudy (Clear); Blood Urine 3+ (Negative); Color Urine Orange; Glucose Urine UA Negative (Negative); Ketones Urine Negative (Negative); Leukocyte Esterase Urine 1+ (Negative); Nitrite Urine Negative (Negative); Specific Gravity Urine > 1.045 (1.000-1.030); Urobilinogen Urine Negative (Negative); pH Urine 8.5 (4.5-7.5)
[2020-11-07 02:50] LABS: Protein Urine 1+ (Negative)
[2020-11-07 02:51] LABS: Bilirubin Urine 1+ (Negative)
[2020-11-07] MEDS: POTASSIUM CHLORIDE 20 MEQ in LACTATED RINGER'S 1,000 ML IV SCH ×3 (03:02→20:43)
[2020-11-07 03:07] LABS: Bacteria Urine Automated Negative (Negative); Cast Urine Automated 0 /lpf (0-5); RBC Urine Automated >30 /hpf (0-4)
[2020-11-07] MEDS ORDERED: oxyCODONE HCL IR 5 MG TAB (IMMEDIATE RELEASE) PO PRN (04:23)
[2020-11-07] MEDS: chlordiazePOXIDE HCl 25 MG CAP PO SCH ×4 (05:22→23:52)
[2020-11-07] MEDS: METOPROLOL TARTRATE 50 MG TAB PO SCH ×2 (05:46→20:26)
[2020-11-07 07:26] LABS: Albumin Globulin Ratio 0.6 (0.9-2); Albumin Level 2.3 gm/dl (3.4-5.0); BUN Creatinine Ratio 10.9 (10-20); Bilirubin,Total 3.4 mg/dl (0.2-1); Calcium 7.9 mg/dl (8.5-10.1); Creatinine Clr Calc Pharmacy 77.5 ml/min; Est GFR (African American) 107.8; Globulin 3.9 gm/dl (2.5-4.0); Magnesium 2.7 mg/dl (1.8-2.4); Total Protein 6.2 gm/dl (6.4-8.2)
[2020-11-07 07:30] LABS: Potassium 3.4 mmol/L (3.5-5.1)
[2020-11-07 07:45] LABS: Basophils # (auto) 0.04 K/uL (0-0.2); Basophils % (auto) 0.6 %; Eosinophils # (auto) 0.02 K/uL (0-0.5); Eosinophils % (auto) 0.3 %; Hematocrit (blood only) 34.4 % (37-47); Hemoglobin 11.6 g/dL (12.0-16.0); Immature Granulocytes # (auto) 0.01 K/uL (0.00-0.02); Immature Granulocytes % (auto) 0.2 %; Lymphocytes % (auto) 22.5 %; Mean Corpuscular Hemoglobin 33.2 pg (25-34); Mean Corpuscular Hgb Conc 33.7 g/dL (32-36); Mean Corpuscular Volume 98.6 fL (80-100); Mean Platelet Volume 10.1 fL (7.4-10.4); Monocytes # (auto) 0.62 K/uL (0.11-0.59); Monocytes % (auto) 9.3 %; Neutrophils # (auto) 4.47 K/uL (1.4-6.5); Neutrophils % (auto) 67.1 %; Platelet Count 271 K/uL (130-400); RDW Coefficient of Variation 14.4 % (11.5-14.5); RDW Standard Deviation 51.7 fL (36.4-46.3); Red Blood Count 3.49 M/uL (4.2-5.4); White Blood Count 6.66 K/uL (4.8-10.8)
--- NOTE | 2020-11-07 07:52 | CT Scan Report ---
CT SCAN OF THE ABDOMEN AND PELVIS WITH IV CONTRAST CLINICAL HISTORY: Epigastric abdominal pain. COMPARISON STUDY: Abdominal CT dated 10/08/2020 and 09/23/2020. TECHNIQUE: Following the IV administration of 92 cc of Optiray 320, CT scan of the abdomen and pelvi s is performed from the lung bases to the proximal femora. Images are reviewed in the axial, sagittal , and coronal planes. IV contrast was administered without complication. A dose lowering technique wa s utilized adhering to the principles of ALARA. CT DOSE: 280.03 mGy.cm FINDINGS: Lung bases: The heart is normal in size and without pericardial effusion. A calcified granuloma is no sandra in the left lower lobe. The lung bases are otherwise clear noting dependent atelectasis. Liver: The contrast-enhanced liver is enlarged, measuring 24 cm in length. The liver demonstrates dif fusely diminished attenuation consistent with severe hepatic steatosis. There is no intrahepatic bili eddie ductal dilatation. The hepatic veins and portal veins are patent. Gallbladder: Surgically absent. Spleen: Normal in size and attenuation. Pancreas: The pancreas is markedly atrophic. Soft tissue infiltration and trace fluid around the panc reatic tail in between the pancreas, spleen, and stomach has continued to decrease from recent prior examinations. The gland enhances homogeneously. The pancreatic duct is normal in caliber. There is a small thick walled organized fluid collection between the pancreatic tail and the stomach on image #[id number] which measures 2.8 x 1.6 cm. This has significantly decreased in size from 09/23/2020. The splenic vein is attenuated distally and but likely remains patent. Adrenal glands: Unremarkable. Kidneys: The contrast enhanced kidneys are normal in size and without hydronephrosis. The kidneys enh ance symmetrically. There is a punctate nonobstructing right renal calculus. Abdominal vasculature: The abdominal aorta is normal in course and caliber. Stomach and bowel: A cyst-gastrostomy tube is unchanged in position. There is no bowel obstruction. T he appendix is well-visualized and normal. Peritoneum: There is no intraperitoneal free air or abdominal ascites. Complex fluid/nodularity is ag ain seen in the paracolic gutters, likely related to prior bouts of pancreatitis. Lymphadenopathy: None. Pelvic viscera: The bladder, uterus, and adnexa are normal as imaged. There are bilateral ovarian fo llicles. Dirk structures: No lytic or blastic lesions are seen. IMPRESSION: 1. A cyst-gastrostomy tube is unchanged in position. 2. The organized fluid collection in the left upper quadrant between the pancreatic tail and the stom ach has continued to decrease in size as compared to 09/23/2020. 3. The pancreas is markedly atrophic. Infiltration and fluid between the distal pancreas, spleen, and the stomach has continued to improved from previous. 4. Hepatomegaly and severe hepatic steatosis. 5. Additional findings as above. ACT 112: Negative or not required by law. Electronically signed by: Lnonie Mcdaniel M.D. 11/07/2020 7:51 AM
[2020-11-07] MEDS ORDERED: POTASSIUM CHLORIDE CRTAB 20 MEQ TABCR PO ONE (08:00)
[2020-11-07] MEDS: THIAMINE HCL 100 MG TAB PO SCH (08:08)
[2020-11-07] MEDS: FOLIC ACID 1 MG TAB PO SCH (08:08)
[2020-11-07] MEDS: MULTIVITAMIN TAB PO SCH (08:08)
[2020-11-07] MEDS: ENOXAPARIN INJ 30 MG/0.3 ML SYR SQ SCH (08:09)
[2020-11-07] MEDS ORDERED: METOPROLOL TARTRATE 50 MG TAB PO SCH (09:00)
[2020-11-07] MEDS ORDERED: oxyCODONE HCL IR 5 MG TAB (IMMEDIATE RELEASE) PO STA (10:10)
[2020-11-07] MEDS: PROMETHAZINE HCL 12.5 MG in SODIUM CHLORIDE 0.9% 50 ML IV PRN (10:18)
[2020-11-07] MEDS: MoRPHine SULFATE 2 MG/ML CARP IV PRN ×2 (15:45→20:24)
--- NOTE | 2020-11-07 18:24 | Communication Note ---
Date of Service: November 07, 2020 admitted with ETOH withdrawal pt reports of feeling better since admission nausea has improved , agreeable to advance diet to solid last ETOH intake > 24 hrs back willing to follow up with out patient clinic for ETOH rehab/counselling , sinus tach noted at rest cont IVF monitor in tele plan to dc home in next 24-48 hrs if no s/s ETOH withdrawal Yuliana Ulloa MD
--- NOTE | 2020-11-07 22:15 | Hospitalist Progress Note ---
Date of Service November 07, 2020 Assessment & Plan (1) Alcohol withdrawal: -Alcohol withdrawal hx of prison alcohol abuse with multiple hospital admissions last ETOH intake > 24 hrs back pt reports of feeling better on alcohol withdrawal protocol pt is counselled repeatedly for alcohol abstinence Troponin elevation : possible miocardial demand ischemia due to ETOH withdrawal /tachycardia no complain of chest pain or SOB , no cardiac symptoms history pancreatic pseudocyst/necrosis s Outpatient endoscopic drainage at [facility] scheduled at end october Abdominal pain : resolved ,diet advanced to low fat electrolyte imbalance due to chronic alcohol abuse replaced , follow lytes FULL CODE DISPOSITION ; plan to dc home in next 1-2 days Admission and Anticipated Discharge Date Admission Date: November 07, 2020 Subjective follow up visit for Alcohol withdrawal /abdominal pain ; abdominal pain has improved , minimum nausea tolerating clears , like to try solid no tremor or anxiety noted pt reports of feeling better since admission Review of Systems Review of Systems: All systems reviewed & are unremarkable except as noted in HPI & below Constitutional: no fever, no body aches, no fatigue and no weakness Respiratory: no cough Cardiovascular: no chest pain Physical Exam Constitutional: WD/WN, vitals as above Eyes: PERRL, conjunctivae normal, anicteric sclerae ENMT: external ear and nose normal, oropharynx normal Neck: trachea midline, no thyromegaly Respiratory: normal respiratory effort, lungs clear to auscultation Cardiovascular: Rate/Rhythm: regular rate, regular rhythm and + tachycardic Extremities: no edema Gastrointestinal (Abdomen): normal bowel sounds, soft, nontender, no hepatosplenomegaly Musculoskeletal: no cyanosis or clubbing, extremities motor strength 5/5 Skin: no rashes, warm and dry Neurologic: PERRL, EOMI, accommodation nl, no face palsy, no dysarthria Psychiatric: A+Ox3, euthymic affect Results & Data Results & Data ([facility]) Vital Signs (Past 12 Hours) Vital Signs Temp Pulse Pulse Resp BP Pulse Ox 11/07/20 19:55 37.6 C H 111 H 19 107/74 99 11/07/20 15:58 92 H 11/07/20 15:52 37.2 C 96 H 18 94/65 L 96 11/07/20 11:33 36.6 C 81 20 103/72 96
--- NOTE | 2020-11-08 00:22 | Electrocardiogram Report ---
Test Reason : Blood Pressure : / mmHG Vent. Rate : 130 BPM Atrial Rate : 130 BPM P-R Int : 126 ms QRS Dur : 076 ms QT Int : 354 ms P-R-T Axes : 022 047 010 degrees QTc Int : 520 ms Sinus tachycardia Abnormal ECG When compared with ECG of 09-OCT-2020 06:18, T wave inversion now evident in Inferior leads T wave inversion now evident in Anterolateral leads Confirmed by Ugo Pham ([id number]) on 11/08/2020 12:22:30 AM Referred By: REFERRED SELF Confirmed By:Ugo Pham
[2020-11-08] MEDS: MoRPHine SULFATE 2 MG/ML CARP IV PRN ×2 (01:07→06:37)
[2020-11-08] MEDS: POTASSIUM CHLORIDE 20 MEQ in LACTATED RINGER'S 1,000 ML IV SCH (05:20)
[2020-11-08] MEDS: chlordiazePOXIDE HCl 25 MG CAP PO SCH ×2 (05:23→14:01)
[2020-11-08] MEDS: PROMETHAZINE HCL 12.5 MG in SODIUM CHLORIDE 0.9% 50 ML IV PRN ×2 (05:26→13:18)
[2020-11-08 07:54] LABS: Albumin Level 2.1 gm/dl (3.4-5.0); BUN Creatinine Ratio 6.6 (10-20); Calcium 7.8 mg/dl (8.5-10.1); Creatinine Clr Calc Pharmacy 87.5 ml/min; Est GFR (African American) 124.7; Est GFR (Non-African American) 107.6; Potassium 4.3 mmol/L (3.5-5.1)
[2020-11-08 08:03] LABS: Albumin Globulin Ratio 0.6 (0.9-2); Bilirubin,Total 2.2 mg/dl (0.2-1); Globulin 3.6 gm/dl (2.5-4.0); Total Protein 5.7 gm/dl (6.4-8.2)
[2020-11-08] MEDS: FOLIC ACID 1 MG TAB PO SCH (08:03)
[2020-11-08] MEDS: MULTIVITAMIN TAB PO SCH (08:03)
[2020-11-08] MEDS: METOPROLOL TARTRATE 50 MG TAB PO SCH (08:03)
[2020-11-08] MEDS: ENOXAPARIN INJ 30 MG/0.3 ML SYR SQ SCH (08:03)
[2020-11-08] MEDS: THIAMINE HCL 100 MG TAB PO SCH (08:03)
[2020-11-08 11:45] VITALS: TEMP 98.8; O2SAT 94
[2020-11-08] MEDS ORDERED: ondansetron HCL 6 MG in DEXTROSE 5% 50 ML IV PRN (14:23)
[2020-11-08 14:35] VITALS: BP 105/75
[2020-11-08 14:57] VITALS: PULSE 109
[2020-11-08] MEDS ORDERED: NITROFURANTOIN MONOHYDRATE 100 MG CAP PO SCH (15:00)
--- NOTE | 2020-11-08 17:30 | Discharge Summary ---
Date of Service November 08, 2020 Admission HPI Per Admitting Provider History obtained from patient and records. Medical history significant for nonischemic cardiomyopathy (EF 55 to 60 TTE 2019), HTN, recurrent pancreatitis, history pancreatic pseudocyst/necrosis status post endoscopic necrosectomy, narcotic addiction as per records, chronic anemia (baseline hemoglobin 10-11), alcohol abuse. Recent confinement last month for alcohol withdrawal and alcoholic pancreatitis. Endoscopic drainage of pancreatic fluid collection deferred due to asymptomatic positive COVID-19 screen. Procedure scheduled at [facility] end of October, pending negative COVID- 19 test. Patient went back to drinking alcohol shortly after discharge. Persistent but tolerable achy upper abdominal pain from discharge from last confinement. Patient slowly tapering off alcohol intake in her desire to quit the last few days. Usual abdominal pain with nausea and emesis. No diarrhea. No fever, no chills. Last drink was yesterday morning. Video appointment with PCP yesterday to discuss concerns about potential alcohol withdrawal seizures. PCP prescribed Librium taper. Palpitations, tachycardia noted after first dose of Librium. No chest pain, no S OB. Patient consulted ER with worsening symptoms. 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 Principal Diagnosis ALCOHOL ABUSE ALCOHOL WITHDRAWAL ABDOMINAL PAIN UTI Discharge Exam Constitutional WD/WN, vitals as above Eyes PERRL, conjunctivae normal, anicteric sclerae ENMT external ear and nose normal, oropharynx normal Neck trachea midline, no thyromegaly Respiratory normal respiratory effort, lungs clear to auscultation Cardiovascular Rate/Rhythm: regular rate, regular rhythm and + tachycardic Extremities: no edema Gastrointestinal (Abdomen) normal bowel sounds, soft, nontender, no hepatosplenomegaly Musculoskeletal no cyanosis or clubbing, extremities motor strength 5/5 Skin no rashes, warm and dry Neurologic PERRL, EOMI, accommodation nl, no face palsy, no dysarthria Psychiatric A+Ox3, euthymic affect Discharge Data Allergies Allergy/AdvReac Type Severity Reaction Status Date / Time tramadol AdvReac Severe Seizure Verified 11/06/20 21:48 gabapentin AdvReac Unknown Hallucinati Verified 11/06/20 21:48 ng ketorolac [From Toradol] AdvReac Unknown Unknown Verified 11/06/20 21:48 Consultations 01/19/21 23:52 ED Decision to Admit Stat 11/07/20 02:25 Consult Case Management - Discharge Planning Routine Ordered Studies 11/06/20 22:11 CT abd pelvis IV con only Urgent Hospital Course (1) Alcohol withdrawal: -Alcohol withdrawal hx of alf alcohol abuse with multiple hospital admissions last ETOH intake > 24 hrs back pt reports of feeling better on alcohol withdrawal protocol pt is counselled repeatedly for alcohol abstinence no s/s of ETOH withdrawal vitals stable Troponin elevation : possible miocardial demand ischemia due to ETOH withdrawal /tachycardia no complain of chest pain or SOB , no cardiac symptoms history pancreatic pseudocyst/necrosis s Outpatient endoscopic drainage at [facility] scheduled at end of October 2020 UTI : urine culture : Enterococcus started on PO Nitrofurantoin 100 mg PO BID for 7 days Abdominal pain : resolved ,diet advanced to low fat /tolerating well electrolyte imbalance due to chronic alcohol abuse replaced , follow lytes FULL CODE DISPOSITION ; discharged home today Total Time Total Time Spent Total Time Spent (In Minutes): 35 mins Total Time Includes: Examination of the Patient, Discharge Planning and Medication Reconciliation Discharge Plan Discharge Items Patient Disposition: Home - Self-Care Reason For Visit: ETOH WITHDRAWAL Discharge Diagnosis: ALCOHOL ABUSE ALCOHOL WITHDRAWAL ABDOMINAL PAIN UTI Condition on Discharge: Good Activity: Resume your previous activity Non-emergency contact: Primary Care Provider Call non-emergency contact if: you have any medication questions Follow-up/Referrals: Marianela Arroyo MD [Primary Care Provider] - 11/13/20 12:20 pm (Date & Time 11/13/2020 12:20 PM Provider Peterson Lr MD Department Family Practice [facility] ) Diet: Low Fat Addtl Attending Provider Instructions: Need to complete alcohol abstinence continued drinking alcohol increasing your risk of from alcoholic liver disease and cirrhosis/kidney failure /stroke /heart attack continue to follow up with Alcohol Rehab /out patient clinic You have Urinary tract infection : take antibiotic Macrodantin /Nitrofurantoin 100 mg 1 tablet daily for 7 days Pending Studies at Discharge: No Stand-Alone Forms: [employer], Smoking Cessation Medications and DC Order Prescriptions: New thiamine HCl (vitamin B1) [Vitamin B-1] 100 mg Tablet 100 mg PO QAM Qty: 0 RF: 0 folic acid 1 mg Tablet 1 mg PO QAM Qty: 0 RF: 0 nitrofurantoin monohyd/m-cryst 100 mg Capsule 100 mg PO BID 7 Days Qty: 14 RF: 0 Continued metoprolol tartrate 50 mg Tablet 50 mg PO BID Qty: 60 RF: 0 Discontinued chlordiazepoxide HCl [Librium] 25 mg Capsule See Rx Instructions .ROUTE .COMPLEX RF: 0 Discharge Orders: Discharge Order (Routine); Ordered 11/08/20 Ordered By: Yuliana Ulloa Admission Data Admit Date/Time: 11/07/20 01:08 Attending Provider: Yuliana Ulloa Admit Provider: Yanick Chen Primary Care Provider: Marianela Arroyo Other Providers: Yanick Chen Other Interventions: Discharge Summary Assessment (RN) Last Done: 11/08/20 14:34
[2020-11-08] MEDS ORDERED: POTASSIUM CHLORIDE CRTAB 20 MEQ TABCR PO SCH (21:00)
[2020-11-10] MEDS ORDERED: chlordiazePOXIDE HCl 5 MG CAP PO SCH (00:45)
--- NOTE | 2020-11-19 12:44 | Coding Query ---
To promote full compliance with coding requirements relating to patient care, provider participation is requested in all cases of insurance coder uncertainty. Please assist us with the question(s) below: Coding Question(s): The diagnosis below was documented in the H&P, then subsequently fell off all further documentation. Please indicate if it is still a possible diagnosis or ruled out. Physician's Response(s): RCR Alcoholic Pancreatitis ( x ) Diagnosed and POA. Please Specify Further Below: ( x) Acute rcr Alcoholic Pancreatitis ( ) Chronic rcr Alcoholic Pancreatitis ( ) Other: Please Specify ( ) Diagnosed and not POA. Please Specify Further Below: ( ) Acute rcr Alcoholic Pancreatitis ( ) Chronic rcr Alcoholic Pancreatitis ( ) Other: Please Specify ( ) Diagnosed and not POA ( ) Ruled out ( ) Other (please specify) MTDD
== END 2020-11-08 15:45 | disposition home or self-care (01) | DRG 896 ==
LOC: ED 20:58 → 2W 11-07 01:08

== ENCOUNTER 2020-12-04 09:17 | Inpatient (IN) ==
[2020-12-04] MEDS ORDERED: THIAMINE HCL 100 MG in SYRINGE 9 ML IV STA (09:36)
[2020-12-04] MEDS ORDERED: MoRPHine SULFATE 4 MG/ML 1 ML CARP\\VIAL IV STA (09:36)
[2020-12-04] MEDS ORDERED: FOLIC ACID 1 MG in SYRINGE 9.8 ML IV STA (09:36)
[2020-12-04] MEDS ORDERED: SODIUM CHLORIDE 0.9% 1000ML 2,000 ML IV ONE (09:36)
[2020-12-04] MEDS ORDERED: ONDANSETRON INJ 2 MG/ML 2 ML VIAL IV STA (09:36)
--- NOTE | 2020-12-04 09:42 | Emergency Department Note ---
Impression & Plan Alcohol withdrawal, Acute pancreatitis, Elevated troponin, Acute hypokalemia ED Provider Note NAME: CHAD BAUM AGE: 40 SEX: F : 1980 ARRIVES VIA: Walk-In INFORMANT: Patient ED PROVIDER(S): Дмитрий Wetzel DO CHIEF COMPLAINT: abdominal pain HPI: Patient is a 40-year-old female who is an alcoholic with a pancreatic pseudocyst, nonischemic cardiomyopathy, recurrent pancreatitis who just had pancreatic stent removed on 11/30/20. She notes she started drinking again on Thursday. She has had a total of a bottle and a half of wine since then. She notes that she has been unable to keep any liquids or food down. She has had persistent vomiting this morning. Pain is sharp and stabbing in the left upper quadrant. Does radiate a little to the back. Pain is a 7 out of 10. Denies any dysuria urgency or frequency. Last menstrual period was 2 to 3 weeks ago. She follows with Dr. Ramirez from . Denies any chest pain or shortness of breath. Prior to Thursday she had not drank for about 3 weeks. ROS: See above HPI for pertinent positives & negatives. A total of 10 systems reviewed and were otherwise negative. PAST MEDICAL HISTORY:See Below PAST SURGICAL HISTORY:See Below FAMILY HISTORY:See Below SOCIAL HISTORY:See Below HOME MEDICATIONS:See Below ALLERGIES:See Below VITALS:See Below PHYSICAL EXAMINATION: GENERAL: Sitting up in bed, alert, moderate distress holding left upper quadrant EYE EXAM: normal conjunctiva. OROPHARYNX: Dry mucous membranes LUNGS: Clear to auscultation. Normal chest wall mechanics HEART: no murmurs, S1 normal and S2 normal ABDOMEN: abdomen soft, tender in left upper quadrant, normo-active bowel sounds, no masses, no rebound or guarding. BACK: Back is symmetrical on inspection and there is no deformity, no midline tenderness, no CVA tenderness. SKIN: no rashes and no bruising UPPER EXTREMITIES: upper extremities are grossly normal. LOWER EXTREMITIES: No pitting edema. NEURO EXAM: Normal sensorium, cranial nerves II-XII grossly intact, normal speech, no gross weakness of arms, no gross weakness of legs. MEDICAL DECISION MAKING: Patient is a 40-year-old female who is an alcoholic that presents the ER for left upper quadrant abdominal pain. She has drank 1.5 bottles of wine since this past Thursday. Was significantly tachycardic. She is very uncomfortable. IV was established blood work was obtained. Labs show no significant leukocytosis or anemia. Platelets were slightly elevated. BMP with mild hypokalemia. Bilirubin was unremarkable. AST slightly elevated 149. Troponin was elevated 0.061 consistent with previous and EKG showing diffuse ST depressions. No significant change from previous. Covid was negative. CT abdomen pelvis actually shows improvement of the cyst. Patient was given IV fluids, Zofran and narcotics. She was updated bedside. Discussed with hospitalist admitted for further work-up as I favor this is likely secondary to pancreatitis although her lipase has not bumped. Doubt withdrawal as she has only had 1.5 bottles of wine since Thursday and prior to this she has not drank for about 3 weeks. Potassium was repleted via IV. Triage Nursing notes reviewed. Limited review of prior medical records performed Vital Signs: reviewed and remarkable for tachycardia Differential diagnosis: Differential diagnoses includes but is not limited to gastritis, peptic ulcer disease, GERD, gallbladder disease, pancreatitis, small bowel obstruction, acute coronary syndrome, pericarditis, ischemic bowel, irritable bowel disease, irritable bowel syndrome, appendicitis, diverticulitis, malignancy, hernia, urinary tract infection, torsion, /ectopic (if female), perforation, trauma, infectious. ER treatment provided: See below Diagnostics interpreted by me: ECG: Sinus tachycardia rate of [address] depressions in the inferior anterior and lateral leads QTC 438 Cardiac Monitoring: An order was placed for continuous cardiac monitoring. The monitor shows a rate of 118 with sinus rhythm. Laboratory studies: As stated above and show below. Imaging studies: CT abdomen pelvis shows improvement of the pancreatic pseudocyst. Consultation(s): Discussed with hospitalist for further evaluation Procedures: none Critical Care: None Past Med/Surg History Medical History (Updated 12/04/20 @ 14:44 by Дмитрий Wetzel DO) Alcohol abuse Anxiety Anxiety History of COVID-19 diagnosed 10/09/2020 @ [facility]--asymptomatic at first then developed cough, sore throat, low grade fever for 1-2 days--not hospitalized History of kidney stones History of narcotic addiction ?? pt denied ?? Hypertension Migraine Nonischemic cardiomyopathy Pancreatic necrosis Pancreatic pseudocyst Pancreatitis Surgical History H/O esophagogastroduodenoscopy Endoscopic US hx of endoscopic necrosectomy 08/2020 History of colposcopy History of dental surgery History of laparoscopic cholecystectomy History of tooth extraction History of wisdom tooth extraction Family History Grandfather (Paternal) Diabetes Grandmother (Maternal) Diabetes Mother Family history of diabetes mellitus Other No family history of adverse response to anesthesia Social History (Updated 12/04/20 @ 13:57 by Shelby King PA-C) Smoking Status: Never smoker Second Hand Exposure: No; Hx Alcohol Use: Yes Alcohol type: wine Alcohol Intake Frequency: 4 or More x per/Week Alcohol Intake Frequency Comment: 1 bottle of wine per night x past 3 nights. Sober for 3 weeks previous Hx Substance Use: No Preferred Language: Turkmen Communication Ability: Effective Regulatory Law Specialist Required: No Beliefs That Will Affect Care: None marital status: Current Living Situation: Spouse Current Living Situation Comment: Lives with and 5 kids How many Children do You have: 5 Other Information That Helps Us Care for You: No Feels Safe at Home: Yes Safety Concerns: Feels Safe At This Time Assistive Devices: Glasses Assistive Devices Comment: upper partial bridge Allergies Allergies Allergy/AdvReac Type Severity Reaction Status Date / Time tramadol Allergy Severe Seizure Verified 12/04/20 10:02 gabapentin Allergy Intermediate Hallucinati Verified 12/04/20 10:02 ng ketorolac [From Toradol] Allergy Mild shaky, Verified 12/04/20 10:02 dizzy, uneasy feeling Home Meds Home Medications Medication Instructions Recorded Confirmed buspirone 5 mg PO TID 11/21/20 12/04/20 naltrexone 50 mg PO QAM 11/21/20 12/04/20 Previous Rx's Medication Instructions Recorded folic acid 1 mg PO QAM #0 tab 11/08/20 thiamine HCl (vitamin B1) [Vitamin 100 mg PO QAM #0 tab 11/08/20 B-1] Results & Data (ED) Vital Signs Vital Signs - 24 hr 12/04/20 09:21 12/04/20 09:36 12/04/20 09:41 Temperature 36.9 C Temperature Source Oral Pulse Rate 145 H Pulse Rate [Left Apical] 92 H Pulse Rhythm Regular Pulse Rhythm [Left Apical] Regular Pulse Strength Normal Pulse Strength [Left Apical] Normal Respiratory Rate 20 19 Respiratory Effort / Characteristics Non-Labored Non-Labored Respiratory Depth Normal Normal Respiratory Pattern Regular Blood Pressure 122/85 Blood Pressure [Right Arm] 136/98 Blood Pressure Mean 97 Blood Pressure Mean [Right Arm] 110 Blood Pressure Position Sitting Blood Pressure Position [Right Arm] Lying Pulse Oximetry 97 100 Oxygen Delivery Method Room Air Room Air Room Air Sepsis Recent Fever Within 48 Hours No Sepsis New/Unexplained Change in Mental Status No Sepsis Action Taken by Nursing No Action Required 12/04/20 10:20 12/04/20 10:46 Temperature Temperature Source Pulse Rate Pulse Rate [Left Apical] 141 H 124 H Pulse Rhythm Pulse Rhythm [Left Apical] Regular Pulse Strength Pulse Strength [Left Apical] Normal Respiratory Rate 16 16 Respiratory Effort / Characteristics Non-Labored Respiratory Depth Normal Respiratory Pattern Blood Pressure Blood Pressure [Right Arm] 135/102 H 151/103 H Blood Pressure Mean Blood Pressure Mean [Right Arm] 113 119 Blood Pressure Position Blood Pressure Position [Right Arm] Sitting Pulse Oximetry 94 99 Oxygen Delivery Method Room Air Room Air Sepsis Recent Fever Within 48 Hours Sepsis New/Unexplained Change in Mental Status Sepsis Action Taken by Nursing Laboratory Data Result diagrams: 12/04/20 09:37 12/04/20 09:36 Lab Results 12/04/20 12/04/20 12/04/20 Range/Units 09:36 09:36 09:37 WBC 7.05 (4.8-10.8) K/uL RBC 4.91 (4.2-5.4) M/uL Hgb 16.6 H (12.0-16.0) g/dL Hct 46.8 (37-47) % MCV 95.3 (80-100) fL MCH 33.8 (25-34) pg MCHC 35.5 (32-36) g/dL RDW Std Deviation 43.2 (36.4-46.3) fL RDW Coeff of Hanna 12.4 (11.5-14.5) % Plt Count 591 H (130-400) K/uL MPV 9.6 (7.4-10.4) fL Immature Gran % (Auto) 0.1 % Neut % (Auto) 76.8 % Lymph % (Auto) 17.2 % Cass % (Auto) 5.2 % Eos % (Auto) 0.1 % Baso % (Auto) 0.6 % Neut # (Auto) 5.41 (1.4-6.5) K/uL Lymph # (Auto) 1.21 (1.2-3.4) K/uL Cass # (Auto) 0.37 (0.11-0.59) K/uL Eos # (Auto) 0.01 (0-0.5) K/uL Baso # (Auto) 0.04 (0-0.2) K/uL Immature Gran # (Auto) 0.01 (0.00-0.02) K/uL Sodium 138 (136-145) mmol/L Potassium 2.8 L (3.5-5.1) mmol/L Chloride 97 L (98-107) mmol/L Carbon Dioxide 25 (21-32) mmol/L Anion Gap 16.0 H (3-11) BUN 8 (7-18) mg/dl Creatinine 1.09 (0.6-1.2) mg/dl Est Cr Clr Drug Dosing 60.8 ml/min Est GFR ( Amer) 73.0 Est GFR (Non-Af Amer) 63.0 BUN/Creatinine Ratio 7.5 L (10-20) Glucose 147 H (70-99) mg/dl Calcium 9.2 (8.5-10.1) mg/dl Magnesium (1.8-2.4) mg/dl Total Bilirubin 0.8 (0.2-1) mg/dl AST 149 H (15-37) U/L ALT 75 (12-78) U/L Alkaline Phosphatase 185 H (45-117) U/L Troponin I 0.061 H* (0-0.045) ng/ml Total Protein 8.7 H (6.4-8.2) gm/dl Albumin 3.7 (3.4-5.0) gm/dl Globulin 5.0 H (2.5-4.0) gm/dl Albumin/Globulin Ratio 0.7 L (0.9-2) Lipase 71 L (73-393) U/L HCG, Qual Negative (Negative) COVID-19 Eval Order SARS-CoV-2, RNA, NAAT (NEGATIVE) 12/04/20 12/04/20 12/04/20 Range/Units 09:37 11:10 11:10 WBC (4.8-10.8) K/uL RBC (4.2-5.4) M/uL Hgb (12.0-16.0) g/dL Hct (37-47) % MCV (80-100) fL MCH (25-34) pg MCHC (32-36) g/dL RDW Std Deviation (36.4-46.3) fL RDW Coeff of Hanna (11.5-14.5) % Plt Count (130-400) K/uL MPV (7.4-10.4) fL Immature Gran % (Auto) % Neut % (Auto) % Lymph % (Auto) % Cass % (Auto) % Eos % (Auto) % Baso % (Auto) % Neut # (Auto) (1.4-6.5) K/uL Lymph # (Auto) (1.2-3.4) K/uL Cass # (Auto) (0.11-0.59) K/uL Eos # (Auto) (0-0.5) K/uL Baso # (Auto) (0-0.2) K/uL Immature Gran # (Auto) (0.00-0.02) K/uL Sodium (136-145) mmol/L Potassium (3.5-5.1) mmol/L Chloride (98-107) mmol/L Carbon Dioxide (21-32) mmol/L Anion Gap (3-11) BUN (7-18) mg/dl Creatinine (0.6-1.2) mg/dl Est Cr Clr Drug Dosing ml/min Est GFR ( Amer) Est GFR (Non-Af Amer) BUN/Creatinine Ratio (10-20) Glucose (70-99) mg/dl Calcium (8.5-10.1) mg/dl Magnesium 1.8 (1.8-2.4) mg/dl Total Bilirubin (0.2-1) mg/dl AST (15-37) U/L ALT (12-78) U/L Alkaline Phosphatase (45-117) U/L Troponin I (0-0.045) ng/ml Total Protein (6.4-8.2) gm/dl Albumin (3.4-5.0) gm/dl Globulin (2.5-4.0) gm/dl Albumin/Globulin Ratio (0.9-2) Lipase (73-393) U/L HCG, Qual (Negative) COVID-19 Eval [facility] [place], RNA, NAAT NEGATIVE (NEGATIVE) Administered Medications Lorazepam (Ativan) 1 mg in 2 mls @ 2 mls/min IV UD PRN; Protocol PRN Reason: EtOH Withdrawl AWSS Score 6,7 Stop: 01/03/21 11:27 Last Admin: 12/04/20 13:52 Dose: 2 mls/min Documented by: [id number] Lorazepam (Ativan) 2 mg in 4 mls @ 4 mls/min IV UD PRN; Protocol PRN Reason: EtOH Withdrawl AWSS Score 8,9 Stop: 01/03/21 11:27 Last Admin: 12/04/20 14:30 Dose: 4 mls/min Documented by: [id number] Discontinued Medications Hydromorphone HCl (Hydromorphone Inj 1 Mg/Ml Syringe) 1 mg IV NOW STA Stop: 12/04/20 10:25 Last Admin: 12/04/20 10:36 Dose: 1 mg Documented by: [id number] Sodium Chloride (Nss 1000ml) 2,000 mls @ 999 mls/hr IV .Q2H1M ONE Stop: 12/04/20 11:36 Last Admin: 12/04/20 09:42 Dose: 999 mls/hr Documented by: [id number] Thiamine HCl 100 mg/ Syringe 10 mls @ 2 mls/min IV NOW STA Stop: 12/04/20 09:40 Last Admin: 12/04/20 10:47 Dose: 2 mls/min Documented by: [id number] Folic Acid 1 mg/ Syringe 10 mls @ 5 mls/min IV NOW STA Stop: 12/04/20 09:37 Last Admin: 12/04/20 10:47 Dose: 5 mls/min Documented by: [id number] Potassium Chloride (K Derek / Wtr) 10 meq in 100 mls @ 100 mls/hr IV Q1H DONOVAN Stop: 12/04/20 13:14 Last Admin: 12/04/20 13:10 Dose: 100 mls/hr Documented by: [id number] Infusion: 12/04/20 13:10 Dose: 0 mls/hr Documented by: [id number] Admin: 12/04/20 11:12 Dose: 100 mls/hr Documented by: [id number] Lorazepam (Ativan) 0.5 mg in 1 mls @ 1 mls/min IV NOW STA Stop: 12/04/20 11:06 Last Admin: 12/04/20 11:22 Dose: 1 mls/min Documented by: [id number] Ioversol (Ioversol 100ml) 94 ml IV ONCE ONE Stop: 12/04/20 10:40 Last Admin: 12/04/20 10:39 Dose: 94 ml Documented by: [id number] Morphine Sulfate (Morphine Sulfate 4 Mg/Ml 1 Ml Carp\Vial) 4 mg IV NOW STA Stop: 12/04/20 09:37 Last Admin: 12/04/20 09:42 Dose: 4 mg Documented by: [id number] Ondansetron HCl (Ondansetron Inj 2 Mg/Ml 2 Ml Vial) 4 mg IV NOW STA Stop: 12/04/20 09:37 Last Admin: 12/04/20 09:42 Dose: 4 mg Documented by: [id number] Discharge Plan Visit Data Chief Complaint: Abdominal Pain Stated Complaint: ABD PAIN ED Provider: Дмитрий Wetzel Discharge Problem: Alcohol withdrawal, Acute pancreatitis, Elevated troponin, Acute hypokalemia Patient Disposition: Admitted As Inpatient Discharge Instructions Interventions: ED Discharge Assessment Last Done: 12/04/20 13:52 Discharge Problem: Alcohol withdrawal Qualifiers: Complication of substance-induced condition: with unspecified complication Qualified Code(s): F10.239 - Alcohol dependence with withdrawal, unspecified Acute pancreatitis Qualifiers: Pancreatitis type: unspecified pancreatitis type Acute pancreatitis complication: unspecified Qualified Code(s): K85.90 - Acute pancreatitis without necrosis or infection, unspecified
[2020-12-04 09:51] LABS: Basophils # (auto) 0.04 K/uL (0-0.2); Basophils % (auto) 0.6 %; Eosinophils # (auto) 0.01 K/uL (0-0.5); Eosinophils % (auto) 0.1 %; Hematocrit (blood only) 46.8 % (37-47); Hemoglobin 16.6 g/dL (12.0-16.0); Immature Granulocytes # (auto) 0.01 K/uL (0.00-0.02); Immature Granulocytes % (auto) 0.1 %; Lymphocytes # (auto) 1.21 K/uL (1.2-3.4); Lymphocytes % (auto) 17.2 %; Mean Corpuscular Hemoglobin 33.8 pg (25-34); Mean Corpuscular Hgb Conc 35.5 g/dL (32-36); Mean Corpuscular Volume 95.3 fL (80-100); Mean Platelet Volume 9.6 fL (7.4-10.4); Monocytes # (auto) 0.37 K/uL (0.11-0.59); Monocytes % (auto) 5.2 %; Neutrophils # (auto) 5.41 K/uL (1.4-6.5); Neutrophils % (auto) 76.8 %; Platelet Count 591 K/uL (130-400); RDW Coefficient of Variation 12.4 % (11.5-14.5); RDW Standard Deviation 43.2 fL (36.4-46.3); Red Blood Count 4.91 M/uL (4.2-5.4); White Blood Count 7.05 K/uL (4.8-10.8)
[2020-12-04 10:09] LABS: Albumin Level 3.7 gm/dl (3.4-5.0); BUN Creatinine Ratio 7.5 (10-20); Calcium 9.2 mg/dl (8.5-10.1); Creatinine Clr Calc Pharmacy 60.8 ml/min; Potassium 2.8 mmol/L (3.5-5.1)
[2020-12-04 10:11] LABS: Pregnancy Test, Serum Negative (Negative)
[2020-12-04 10:16] LABS: Albumin Globulin Ratio 0.7 (0.9-2); Bilirubin,Total 0.8 mg/dl (0.2-1); Total Protein 8.7 gm/dl (6.4-8.2); Troponin I 0.061 ng/ml (0-0.045)
[2020-12-04] MEDS ORDERED: HYDROmorphone INJ 1 MG/ML SYRINGE IV STA (10:24)
[2020-12-04] MEDS ORDERED: OPTIRAY 320 100ml IV ONE (10:39)
[2020-12-04] MEDS ORDERED: LORazepam 0.5 MG/1 ML VIAL IV STA (11:05)
--- NOTE | 2020-12-04 11:05 | CT Scan Report ---
CT OF THE ABDOMEN AND PELVIS WITH CONTRAST CLINICAL HISTORY: Left upper quadrant abdominal pain and nausea and vomiting. History of pancreatitis . Status post stent removal November 30, 2020. COMPARISON STUDY: CT of the abdomen and pelvis November 06, 2020. TECHNIQUE: Following IV administration of 94 mL of Optiray-320, axial images of the abdomen and pelvi s were obtained from the lung bases to the proximal femurs. Images were reviewed in the axial, sagitt al, and coronal planes. IV contrast was administered without complication. Automated exposure contro l was utilized for the study. A dose lowering technique was utilized adhering to the principles of A CATA. CT DOSE: 267.59 mGy.cm FINDINGS: Lung bases are unremarkable. There is a calcified granuloma within the left lower lobe. No pneumatosis, free air or portal venous gas is present. The cyst gastrostomy tube on CT of November 06, 2020 has been removed. Gastric wall thickening is noted. This is similar to prior examination. The p reviously described rim enhancing fluid collection anterior to the pancreatic tail has decreased in s ize since CT of November 06, 2020. This collection now measures 1.6 x 0.9 cm. It previously measured 2 .8 x 1.6 cm. Fluid and infiltration adjacent to the stomach, spleen and pancreatic body and tail has mildly decreased since prior examination. Mild wall thickening of the splenic flexure of the colon is again noted. This is likely reactive. Peritoneal nodularity persist but have slightly improved from earlier CTs. There is no evidence for a bowel obstruction. Severe hepatic steatosis is again noted. T here is no biliary ductal dilatation status post cholecystectomy. Pancreas glandular atrophy is uncha nged. There is no pancreatic ductal dilatation. A 2 cm oval-shaped density within the pancreatic tail likely reflects a splenule. As before, the splenic vein is attenuated. There are is no hydronephrosi s. A 4 mm calcification within the right kidney is noted. The caliber and wall thickness of small and large bowel are normal. IMPRESSION: 1. Overall, improvement since prior CT. Interval removal of the cyst gastrostomy tube. Decrease in si ze of the rim-enhancing peripancreatic fluid collection since CT of November 06, 2020 and mild decreas e in infiltration and fluid adjacent to the stomach, pancreatic tail and spleen. Persistent gastric w all thickening. Peritoneal nodularity persists although mildly improved since earlier CTs. 2. Otherwise, no significant change since prior CT. 3. Severe hepatic steatosis. 4. No bowel obstruction. Normal appendix. ACT 112: Negative or not required by law. Electronically signed by: Remi Arizmendi M.D. 12/04/2020 11:04 AM
[2020-12-04] MEDS: POTASSIUM CHLORIDE / WTR 10 MEQ/100 ML PLCT IV SCH ×4 (11:12→16:45)
[2020-12-04] MEDS ORDERED: LORazepam 2 MG/4 ML VIAL IV PRN (11:28)
[2020-12-04] MEDS ORDERED: LORazepam 3 MG/6 ML VIAL IV PRN (11:28)
--- NOTE | 2020-12-04 12:27 | History & Physical Report ---
Date of Service December 04, 2020 Assessment & Plan (1) Acute pancreatitis: (2) Pancreatic pseudocyst/cyst: This is a 40yo F with PMH of recurrent alcoholic pancreatitis, history pancreatic pseudocyst/necrosis status post stent removal on 11/30, alcohol use disorder, history of nonischemic cardiomyopathy (EF 55-60 TTE 2019), anxiety, depression and other medical problems listed below who presents with worsening epigastric pain x 4 days with pancreatitis alcohol withdrawal. Recurrent etoh pancreatitis, recent axial stent placement at [facility] several months ago for acute pancreatitis with walled off pancreatic necrosis, s/p removal of the previously placed stent on 11/30 Epigastric pain, nausea and vomiting since stent removal on Thursday - also resumed binge drinking alcohol Ct abd/pelvis with interval removal of the cyst gastrostomy tube. Decrease in size of the rim-enhancing peripancreatic fluid collection since CT of 11/06/20. Otherwise, no significant change since prior CT. Severe hepatic steatosis Keep NPO LR @ 150cc/hr Pain control GI consult (3) Alcohol withdrawal: Resumed drinking bottle of wine for past 3 nights, last drink last night Tremulous, anxious and tachycardic AWSS for etoh withdrawal. Using Librium due to h/o hallucinations with gabapendin. Ativan PRN Thiamine and MV supplement Holding home Naltrexone Interested in continued pursuit for sobriety- case mgmt consulted (4) Hypokalemia: Initial potassium of 2.8. Received 20 mEq in ED - continue replacement once admitted Repeat lab work this afternoon (5) High anion gap metabolic acidosis: Anion gap of 16. Continue fluid resuscitation, electrolyte replacement. Expect improvement - repeat BMP this afternoon (6) Elevated troponin: Troponin 0.061 in setting of tachycardia, alcohol withdrawal. Chronically elevated during previous admissions as well. No acute EKG changes or chest pain Monitor on telemetry, trend troponin (7) NICM (nonischemic cardiomyopathy): History of nonischemic cardiomyopathy (EF 55-60 TTE 2019) Has not followed up with cardiology in the past Currently appears dry in setting of pancreatitis, etoh withdrawal (8) Depression: Not currently taking medication to treat depression (9) Anxiety: Continue Buspar DVT Ppx: sandra owens Code status: FULL PCP: Cruz Dispo: Admitted to PCU. Discharge planning ordered Patient seen in collaboration with Dr. Martin. Please see addendum. History of Present Illness Chief Complaint: abd pain Primary Care Provider: Marianela Arroyo MD This is a 40yo F with PMH of recurrent alcoholic pancreatitis, history pancreatic pseudocyst/necrosis status post stent removal on 11/30, alcohol use disorder, history of nonischemic cardiomyopathy (EF 55-60 TTE 2019), anxiety, depression and other medical problems listed below who presents with worsening epigastric pain x 4 days. Patient with history of axial stent placement at [facility] several months ago for acute pancreatitis with walled off pancreatic necrosis. Underwent EGD on 11/30 for removal of the previously placed stent. Endorses epigastric pain directly after procedure that has persisted since then. Pain is described as constant sharp pain in central abdomen made worse with food and movement. Improved slightly after administration of pain medication in ED. Started to drink alcohol Thursday evening and endorses 1 bottle of wine per night since then with last drink last evening. Had gone 3 weeks without drinking previous to 11/30. Developed nausea and vomiting this morning with inability to keep anything down, including water. Endorses poor nutrition over the weekend since she resumed alcohol intake. Denies any fever chills. No headache, chest pain, palpitations, dysuria, diarr hea or constipation. Denies hallucinations or seizures. Allergies Allergy/AdvReac Type Severity Reaction Status Date / Time tramadol Allergy Severe Seizure Verified 12/04/20 10:02 gabapentin Allergy Intermediate Hallucinati Verified 12/04/20 10:02 ng ketorolac [From Toradol] Allergy Mild shaky, Verified 12/04/20 10:02 dizzy, uneasy feeling Home Medications Medication Instructions Recorded Confirmed Type folic acid 1 mg PO QAM #0 tab 11/08/20 12/04/20 Rx thiamine HCl (vitamin B1) [Vitamin 100 mg PO QAM #0 tab 11/08/20 12/04/20 Rx B-1] buspirone 5 mg PO TID 11/21/20 12/04/20 History naltrexone 50 mg PO QAM 11/21/20 12/04/20 History pantoprazole 40 mg PO DAILY #30 tab 12/06/20 Rx sucralfate 1 g PO TID #14 tab 12/06/20 Rx Past Med/Surg History Medical History (Updated 12/05/20 @ 17:07 by Paulino Higginbotham MD) Alcohol abuse Anxiety Anxiety History of COVID-19 diagnosed 10/09/2020 @ [facility]--asymptomatic at first then developed cough, sore throat, low grade fever for 1-2 days--not hospitalized History of kidney stones History of narcotic addiction ?? pt denied ?? Hypertension Migraine Nonischemic cardiomyopathy Pancreatic necrosis Pancreatic pseudocyst Pancreatitis Surgical History H/O esophagogastroduodenoscopy Endoscopic US hx of endoscopic necrosectomy 08/2020 History of colposcopy History of dental surgery History of laparoscopic cholecystectomy History of tooth extraction History of wisdom tooth extraction Family History Grandfather (Paternal) Diabetes Grandmother (Maternal) Diabetes Mother Family history of diabetes mellitus Other No family history of adverse response to anesthesia Social History (Updated 12/04/20 @ 13:57 by Shelby King PA-C) Smoking Status: Never smoker Second Hand Exposure: No; Hx Alcohol Use: Yes Alcohol type: wine Alcohol Intake Frequency: 4 or More x per/Week Alcohol Intake Frequency Comment: 1 bottle of wine per night x past 3 nights. Sober for 3 weeks previous Hx Substance Use: No Preferred Language: Danish Communication Ability: Effective Glass Block Bender Required: No Beliefs That Will Affect Care: None marital status: Current Living Situation: Spouse Current Living Situation Comment: Lives with and 5 kids How many Children do You have: 5 Feels Safe at Home: Yes Assistive Devices: None Review of Systems Review of Systems: At least ten systems reviewed and negative except as noted in the HPI. Physical Exam Physical Exam: General Appearance: vitals as above,sitting up in bed, in acute pain, anxious, tremulous Head: normocephalic, atraumatic Eyes: normal inspection, PERRL, conjunctivae normal, anicteric sclerae ENT: external ear and nose normal, oropharynx normal Neck: normal visual inspection, trachea midline, no thyromegaly Respiratory: normal respiratory effort, lungs clear to auscultation, no wheeze, rales, rhonchi. No accessory muscle use Cardiovascular: Tachycardic rate, rhythm, no murmur appreciated, normal peripheral pulses, no BLE edema. Vessels: no JVD Chest: normal inspection of chest Abdomen/GI: normal bowel sounds, soft but diffusely TTP- most pronounced in ep igastrium. No guarding, no hepatosplenomegaly Extremities/Musculoskeletal: no cyanosis or clubbing, extremities motor strength 5/5 Neurologic: PERRL, EOMI, accommodation nl, no face palsy, no dysarthria, CN's II-XI intact bilaterally and moves all extremities Psychiatric: A+Ox3, anxious Skin: no rashes, normal color, warm/dry Results & Data Results & Data ([facility]) Vital Signs (Past 12 Hours) Vital Signs Temp Pulse Pulse Resp BP BP Pulse Ox 12/04/20 12:14 36.9 C 134 H 14 154/109 H 96 12/04/20 11:54 37.0 C 132 H 21 153/104 H 94 12/04/20 11:34 37.1 C 132 H 16 153/104 H 96 12/04/20 10:46 124 H 16 151/103 H 99 12/04/20 10:20 141 H 16 135/102 H 94 12/04/20 09:36 92 H 19 136/98 100 12/04/20 09:21 36.9 C 145 H 20 122/85 97 Laboratory Results Short CBC 12/04/20 Range/Units 09:37 WBC 7.05 (4.8-10.8) K/uL Hgb 16.6 H (12.0-16.0) g/dL Hct 46.8 (37-47) % Plt Count 591 H (130-400) K/uL BMP 12/04/20 09:36 Sodium 138 Potassium 2.8 L Chloride 97 L Carbon Dioxide 25 BUN 8 Creatinine 1.09 Glucose 147 H Calcium 9.2 Cardiac Enzymes 12/04/20 Range/Units 09:36 Troponin I 0.061 H* (0-0.045) ng/ml Liver Function 12/04/20 Range/Units 09:36 Total Bilirubin 0.8 (0.2-1) mg/dl AST 149 H (15-37) U/L ALT 75 (12-78) U/L Alkaline Phosphatase 185 H (45-117) U/L Albumin 3.7 (3.4-5.0) gm/dl Diagnostic Findings CT abd/pelvis: 1. Overall, improvement since prior CT. Interval removal of the cyst gastrostomy tube. Decrease in size of the rim-enhancing peripancreatic fluid collection since CT of November 06, 2020 and mild decrease in infiltration and fluid adjacent to the stomach, pancreatic tail and spleen. Persistent gastric wall thickening. Peritoneal nodularity persists although mildly improved since earlier CTs. 2. Otherwise, no significant change since prior CT. 3. Severe hepatic steatosis. 4. No bowel obstruction. Normal appendix. Supervising Physician Co-Signing Physician Notes Pt was seen and examined. Agreed with Shelby IRVING exam, assessment and plan. 40yo F with PMH of recurrent alcoholic pancreatitis, history pancreatic pseudocyst/necrosis status post stent removal, alcohol use disorder, history of nonischemic cardiomyopathy, anxiety, depression presented on admission with worsening epigastric pain. S/P EGD on 11/30 for stent removal. Pt said pain started Thursday night after drinking 1 bottle of wine. Pt described pain is constant, sharp, located in the mid abdomen. Pain is worst with food and movement. Denies any chest pain, palpitation, dizziness, SOB. CT abd/pelvis showed Interval removal of the cyst gastrostomy tube. Decrease in size of the rim-enhancing peripancreatic fluid collection since CT of November 06, 2020 and mild decrease in infiltration and fluid adjacent to the stomach, pancreatic tail and spleen. Persistent gastric wall thickening. Peritoneal nodularity persists although mildly improved since earlier CTs. Received IVF and pain med in the ER. Continue IVF. Will keep NPO. gastro consult. Will monitor closely for sign of alcohol withdraw. Will monitor closely. MD Veronica (1) Depression Depression Type: unspecified Qualified Code(s): F32.9 - Major depressive disorder, single episode, unspecified (2) Acute pancreatitis Acute pancreatitis complication: unspecified Pancreatitis type: alcohol induc ed Qualified Code(s): K85.20 - Alcohol induced acute pancreatitis without necrosis or infection
[2020-12-04] MEDS: LORazepam 1 MG/2 ML VIAL IV PRN ×4 (13:52→23:44)
[2020-12-04] MEDS ORDERED: ACETAMINOPHEN 325 MG TAB PO PRN (14:35)
[2020-12-04] MEDS ORDERED: MAGNESIUM HYDROXIDE SUSP 30 ML UDC PO PRN (14:35)
[2020-12-04] MEDS ORDERED: ATIVAN IV ALCOHOL WITHDRAWL IV PRN (14:35)
[2020-12-04] MEDS ORDERED: POLYETHYLENE (MIRALAX) 17 GM PACK PO PRN (14:35)
[2020-12-04] MEDS ORDERED: chlordiazePOXIDE ALCOHOL WITHDRAWL 50MG PO STA (14:35)
[2020-12-04] MEDS ORDERED: ONDANSETRON INJ 2 MG/ML 2 ML VIAL IV PRN (14:35)
[2020-12-04] MEDS ORDERED: ALUMINUM/MAGNESIUM SUSP 30 ML UDC PO PRN (14:35)
[2020-12-04] MEDS ORDERED: POTASSIUM CHLORIDE CRTAB 20 MEQ TABCR PO ONE (15:00)
[2020-12-04] MEDS: LACTATED RINGER'S 1,000 ML IV SCH ×2 (15:08→22:11)
[2020-12-04] MEDS: busPIRone 5 MG TAB PO SCH ×2 (15:44→22:11)
[2020-12-04] MEDS: chlordiazePOXIDE HCl 25 MG CAP PO SCH ×2 (15:50→22:11)
[2020-12-04] MEDS: HYDROmorphone INJ 0.5 MG/0.5 ML SYR IV PRN ×2 (16:01→20:00)
[2020-12-04 16:46] LABS: BUN Creatinine Ratio 6.9 (10-20); Calcium 8.3 mg/dl (8.5-10.1); Creatinine Clr Calc Pharmacy 62.5 ml/min; Est GFR (Non-African American) 71.6; Potassium 3.6 mmol/L (3.5-5.1); Troponin I 0.064 ng/ml (0-0.045)
[2020-12-04] MEDS ORDERED: LABETALOL HCL IV 5 MG/ML 20ML IV ONE (18:53)
[2020-12-04] MEDS: oxyCODONE HCL IR 5 MG TAB (IMMEDIATE RELEASE) PO PRN (23:08)
[2020-12-05] MEDS: oxyCODONE HCL IR 5 MG TAB (IMMEDIATE RELEASE) PO PRN ×4 (03:05→18:20)
[2020-12-05] MEDS: chlordiazePOXIDE HCl 25 MG CAP PO SCH ×4 (04:13→23:58)
[2020-12-05] MEDS: HYDROmorphone INJ 0.5 MG/0.5 ML SYR IV PRN ×6 (04:13→20:50)
[2020-12-05] MEDS: LACTATED RINGER'S 1,000 ML IV SCH ×4 (05:03→20:20)
--- NOTE | 2020-12-05 06:07 | Electrocardiogram Report ---
Test Reason : Blood Pressure : / mmHG Vent. Rate : 119 BPM Atrial Rate : 119 BPM P-R Int : 130 ms QRS Dur : 080 ms QT Int : 312 ms P-R-T Axes : 085 092 098 degrees QTc Int : 438 ms Sinus tachycardia Rightward axis Nonspecific ST and T wave abnormality Abnormal ECG When compared with ECG of 30-NOV-2020 09:48, Non-specific change in ST segment in Inferior leads Nonspecific T wave abnormality, worse in Anterolateral leads Confirmed by Ugo Pham ([id number]) on 12/05/2020 6:06:48 AM Referred By: REFERRED SELF Confirmed By:Ugo Pham
[2020-12-05 06:43] LABS: Hematocrit (blood only) 39.2 % (37-47); Hemoglobin 13.3 g/dL (12.0-16.0); Mean Corpuscular Hgb Conc 33.9 g/dL (32-36); Mean Corpuscular Volume 97.3 fL (80-100); Mean Platelet Volume 9.1 fL (7.4-10.4); Platelet Count 363 K/uL (130-400); RDW Coefficient of Variation 12.3 % (11.5-14.5); RDW Standard Deviation 43.3 fL (36.4-46.3); Red Blood Count 4.03 M/uL (4.2-5.4); White Blood Count 6.01 K/uL (4.8-10.8)
[2020-12-05 06:56] LABS: Albumin Level 2.9 gm/dl (3.4-5.0); BUN Creatinine Ratio 7.4 (10-20); Calcium 8.1 mg/dl (8.5-10.1); Creatinine Clr Calc Pharmacy 98.8 ml/min; Est GFR (African American) 129.8; Magnesium 1.3 mg/dl (1.8-2.4); Potassium 3.5 mmol/L (3.5-5.1)
[2020-12-05 06:58] LABS: Albumin Globulin Ratio 0.8 (0.9-2); Globulin 3.8 gm/dl (2.5-4.0); Total Protein 6.7 gm/dl (6.4-8.2)
--- NOTE | 2020-12-05 07:25 | Hospitalist Progress Note ---
Date of Service December 05, 2020 Assessment & Plan (1) Gastritis: (2) Pancreatic pseudocyst/cyst: This is a 40yo F with PMH of recurrent alcoholic pancreatitis, history pancreatic pseudocyst/necrosis status post stent removal on 11/30, alcohol use disorder, history of nonischemic cardiomyopathy (EF 55-60 TTE 2019), anxiety, depression and other medical problems listed below who presents with worsening epigastric pain x 4 days. Hx of recurrent etoh pancreatitis, recent axial stent placement [place] [facility] [place] ago for acute pancreatitis with walled off pancreatic necrosis, s/p removal of the previously placed stent on 11/30 Epigastric pain, nausea and vomiting since stent removal on Thursday - also resumed binge drinking alcohol Pain likely secondary to ETOH gastritis and some pain from removal of the stent. Initially believed pain 2/[address] abd/pelvis with interval removal of the cyst gastrostomy tube. Decrease in size of the rim-enhancing peripancreatic fluid collection since CT of 11/06/20. Otherwise, no significant change since prior CT. Severe hepatic steatosis Initially NPO , now tolerated clear liquid diet, feels hungry and reports epigastric pain seems better when she eats, will advance diet LR @ 150cc/hr, will decrease the rate IV PPI Pain control GI consult - No clear indication for EGD at this time as not suggestion of any complications on CT. Elevated LFTs secondary to mild alcoholic hepatitis. Would expect to trend down. Will check PT/INR tomorrow but expect a low discriminant function and no need to tx with steroids or trental. (3) Alcohol withdrawal: Resumed drinking bottle of wine for past 3 nights, last drink night prior to admission Tremulous, anxious and tachycardic AWSS for etoh withdrawal. Using Librium due to h/o hallucinations with gabapentin. Ativan PRN Thiamine and MV supplement Holding home Naltrexone Interested in continued pursuit for sobriety- case mgmt consulted (4) Hypokalemia: Initial potassium of 2.8. Replete and monitor Hypomagnesemia Mag 1.3 today Replete and monitor (5) High anion gap metabolic acidosis: Anion gap of 16. Continue fluid resuscitation, electrolyte replacement. Expect improvement - repeat BMP this afternoon Now resolved (6) Elevated troponin: Troponin 0.061 in setting of tachycardia, alcohol withdrawal. Chronically elevated during previous admissions as well. No acute EKG changes or chest pain Monitor on telemetry, trend troponin - stable (7) NICM (nonischemic cardiomyopathy): History of nonischemic cardiomyopathy (EF 55-60 TTE 2019) Has not followed up with cardiology in the past No fluid overload, cont. o monitor fluid status (8) Depression: Not currently taking medication to treat depression (9) Anxiety: Continue Buspar DVT Ppx: sandra oewns Code status: FULL PCP: Dr. Arroyo Dispo: Admitted to PCU. Discharge planning ordered Admission and Anticipated Discharge Date Admission Date: December 04, 2020 Subjective Pt seen in follow up of abdominal pain Currently laying in bed in NAD, but been using IV and PO narcotics Started on clear liquid diet and now asking to advance her diet, feels that food is helping her abd. pain No fever, chills Review of Systems Review of Systems: All systems reviewed & are unremarkable except as noted in HPI & below Constitutional: no fever and no chills Respiratory: no cough and no dyspnea Cardiovascular: no chest pain and no palpitations Gastrointestinal: no abdominal pain, no nausea and no vomiting Physical Exam Physical Exam: General Appearance: vitals as above,sitting up in bed, in NAD Head: normocephalic, atraumatic Eyes: normal inspection, PERRL, EOMI, conjunctivae normal, anicteric sclerae ENT: external ear and nose normal, oropharynx normal Neck: normal visual inspection, trachea midline, no thyromegaly Respiratory: normal respiratory effort, lungs clear to auscultation, no wheeze, rales, rhonchi. No accessory muscle use Cardiovascular: +Tachycardic rate, rhythm, no murmur appreciated, normal peripheral pulses, no BLE edema. Vessels: no JVD Chest: normal inspection of chest Abdomen/GI: normal bowel sounds, soft but diffusely TTP- most pronounced in epigastrium. No guarding Extremities/Musculoskeletal: no cyanosis or clubbing, extremities motor strength 5/5 Neurologic: PERRL, EOMI, no face palsy, no dysarthria, CN's II-XI intact bilaterally and moves all extremities Psychiatric: A+Ox3 Skin: no rashes, normal color, warm/dry Results & Data Results & Data ([place]) Vital Signs (Past 12 Hours) Vital Signs Temp Pulse Pulse Resp BP BP Pulse Ox 12/05/20 04:21 37.1 C 98 H 18 155/96 H 98 02/17/21 02:00 36.8 C 102 H 18 162/99 H 99 12/05/20 01:12 96 H 12/04/20 23:11 36.8 C 94 H 18 146/110 H 99 12/04/20 19:54 36.9 C 99 H 20 147/107 H 94 Laboratory Results 12/05/20 12/05/20 12/04/20 Range/Units 06:20 06:20 21:26 WBC 6.01 (4.8-10.8) K/uL RBC 4.03 L (4.2-5.4) M/uL Hgb 13.3 D (12.0-16.0) g/dL Hct 39.2 (37-47) % MCV 97.3 (80-100) fL MCH 33.0 (25-34) pg MCHC 33.9 (32-36) g/dL RDW Std Deviation 43.3 (36.4-46.3) fL RDW Coeff of Hanna 12.3 (11.5-14.5) % Plt Count 363 (130-400) K/uL MPV 9.1 (7.4-10.4) fL Immature Gran % (Auto) % Neut % (Auto) % Lymph % (Auto) % [place] % (Auto) % Eos % (Auto) % Baso % (Auto) % Neut # (Auto) (1.4-6.5) K/uL Lymph # (Auto) (1.2-3.4) K/uL [place] # (Auto) (0.11-0.59) K/uL Eos # (Auto) (0-0.5) K/uL Baso # (Auto) (0-0.2) K/uL Immature Gran # (Auto) (0.00-0.02) K/uL Sodium 139 (136-145) mmol/L Potassium 3.5 (3.5-5.1) mmol/L Chloride 103 (98-107) mmol/L Carbon Dioxide 28 (21-32) mmol/L Anion Gap 8.0 (3-11) BUN 5 L (7-18) mg/dl Creatinine 0.62 D (0.6-1.2) mg/dl Est Cr Clr Drug Dosing 98.8 ml/min Est GFR ( Amer) 129.8 Est GFR (Non-Af Amer) 112.0 BUN/Creatinine Ratio 7.4 L (10-20) Glucose 95 (70-99) mg/dl Calcium 8.1 L (8.5-10.1) mg/dl Magnesium 1.3 L (1.8-2.4) mg/dl Total Bilirubin 2.0 H D (0.2-1) mg/dl AST 79 H (15-37) U/L ALT 43 (12-78) U/L Alkaline Phosphatase 145 H (45-117) U/L Troponin I 0.064 H* (0-0.045) ng/ml Total Protein 6.7 D (6.4-8.2) gm/dl Albumin 2.9 L (3.4-5.0) gm/dl Globulin 3.8 (2.5-4.0) gm/dl Albumin/Globulin Ratio 0.8 L (0.9-2) Lipase 66 L (73-393) U/L HCG, Qual (Negative) COVID-19 Eval Order SARS-CoV-2, RNA, NAAT (NEGATIVE) 12/04/20 12/04/20 12/04/20 Range/Units 16:03 11:10 11:10 WBC (4.8-10.8) K/uL RBC (4.2-5.4) M/uL Hgb (12.0-16.0) g/dL Hct (37-47) % MCV (80-100) fL MCH (25-34) pg MCHC (32-36) g/dL RDW Std Deviation (36.4-46.3) fL RDW Coeff of Hanna (11.5-14.5) % Plt Count (130-400) K/uL MPV (7.4-10.4) fL Immature Gran % (Auto) % Neut % (Auto) % Lymph % (Auto) % [place] % (Auto) % Eos % (Auto) % Baso % (Auto) % Neut # (Auto) (1.4-6.5) K/uL Lymph # (Auto) (1.2-3.4) K/uL [place] # (Auto) (0.11-0.59) K/uL Eos # (Auto) (0-0.5) K/uL Baso # (Auto) (0-0.2) K/uL Immature Gran # (Auto) (0.00-0.02) K/uL Sodium 141 (136-145) mmol/L Potassium 3.6 D (3.5-5.1) mmol/L Chloride 103 (98-107) mmol/L Carbon Dioxide 26 (21-32) mmol/L Anion Gap 12.0 H (3-11) BUN 7 (7-18) mg/dl Creatinine 0.98 (0.6-1.2) mg/dl Est Cr Clr Drug Dosing 62.5 ml/min Est GFR ( Amer) 83.0 Est GFR (Non-Af Amer) 71.6 BUN/Creatinine Ratio 6.9 L (10-20) Glucose 121 H (70-99) mg/dl Calcium 8.3 L (8.5-10.1) mg/dl Magnesium (1.8-2.4) mg/dl Total Bilirubin (0.2-1) mg/dl AST (15-37) U/L ALT (12-78) U/L Alkaline Phosphatase (45-117) U/L Troponin I 0.064 H* (0-0.045) ng/ml Total Protein (6.4-8.2) gm/dl Albumin (3.4-5.0) gm/dl Globulin (2.5-4.0) gm/dl Albumin/Globulin Ratio (0.9-2) Lipase (73-393) U/L HCG, Qual (Negative) COVID-19 Eval Order Covid19 [facility] SARS-CoV-2, RNA, NAAT NEGATIVE (NEGATIVE) 12/04/20 12/04/20 12/04/20 Range/Units 09:37 09:37 09:36 WBC 7.05 (4.8-10.8) K/uL RBC 4.91 (4.2-5.4) M/uL Hgb 16.6 H (12.0-16.0) g/dL Hct 46.8 (37-47) % MCV 95.3 (80-100) fL MCH 33.8 (25-34) pg MCHC 35.5 (32-36) g/dL RDW Std Deviation 43.2 (36.4-46.3) fL RDW Coeff of Hanna 12.4 (11.5-14.5) % Plt Count 591 H (130-400) K/uL MPV 9.6 (7.4-10.4) fL Immature Gran % (Auto) 0.1 % Neut % (Auto) 76.8 % Lymph % (Auto) 17.2 % [place] % (Auto) 5.2 % Eos % (Auto) 0.1 % Baso % (Auto) 0.6 % Neut # (Auto) 5.41 (1.4-6.5) K/uL Lymph # (Auto) 1.21 (1.2-3.4) K/uL [place] # (Auto) 0.37 (0.11-0.59) K/uL Eos # (Auto) 0.01 (0-0.5) K/uL Baso # (Auto) 0.04 (0-0.2) K/uL Immature Gran # (Auto) 0.01 (0.00-0.02) K/uL Sodium (136-145) mmol/L Potassium (3.5-5.1) mmol/L Chloride (98-107) mmol/L Carbon Dioxide (21-32) mmol/L Anion Gap (3-11) BUN (7-18) mg/dl Creatinine (0.6-1.2) mg/dl Est Cr Clr Drug Dosing ml/min Est GFR ( Amer) Est GFR (Non-Af Amer) BUN/Creatinine Ratio (10-20) Glucose (70-99) mg/dl Calcium (8.5-10.1) mg/dl Magnesium 1.8 (1.8-2.4) mg/dl Total Bilirubin (0.2-1) mg/dl AST (15-37) U/L ALT (12-78) U/L Alkaline Phosphatase (45-117) U/L Troponin I (0-0.045) ng/ml Total Protein (6.4-8.2) gm/dl Albumin (3.4-5.0) gm/dl Globulin (2.5-4.0) gm/dl Albumin/Globulin Ratio (0.9-2) Lipase (73-393) U/L HCG, Qual Negative (Negative) COVID-19 Eval Order SARS-CoV-2, RNA, NAAT (NEGATIVE) 12/04/20 Range/Units 09:36 WBC (4.8-10.8) K/uL RBC (4.2-5.4) M/uL Hgb (12.0-16.0) g/dL Hct (37-47) % MCV (80-100) fL MCH (25-34) pg MCHC (32-36) g/dL RDW Std Deviation (36.4-46.3) fL RDW Coeff of Hanna (11.5-14.5) % Plt Count (130-400) K/uL MPV (7.4-10.4) fL Immature Gran % (Auto) % Neut % (Auto) % Lymph % (Auto) % [place] % (Auto) % Eos % (Auto) % Baso % (Auto) % Neut # (Auto) (1.4-6.5) K/uL Lymph # (Auto) (1.2-3.4) K/uL [place] # (Auto) (0.11-0.59) K/uL Eos # (Auto) (0-0.5) K/uL Baso # (Auto) (0-0.2) K/uL Immature Gran # (Auto) (0.00-0.02) K/uL Sodium 138 (136-145) mmol/L Potassium 2.8 L (3.5-5.1) mmol/L Chloride 97 L (98-107) mmol/L Carbon Dioxide 25 (21-32) mmol/L Anion Gap 16.0 H (3-11) BUN 8 (7-18) mg/dl Creatinine 1.09 (0.6-1.2) mg/dl Est Cr Clr Drug Dosing 60.8 ml/min Est GFR ( Amer) 73.0 Est GFR (Non-Af Amer) 63.0 BUN/Creatinine Ratio 7.5 L (10-20) Glucose 147 H (70-99) mg/dl Calcium 9.2 (8.5-10.1) mg/dl Magnesium (1.8-2.4) mg/dl Total Bilirubin 0.8 (0.2-1) mg/dl AST 149 H (15-37) U/L ALT 75 (12-78) U/L Alkaline Phosphatase 185 H (45-117) U/L Troponin I 0.061 H* (0-0.045) ng/ml Total Protein 8.7 H (6.4-8.2) gm/dl Albumin 3.7 (3.4-5.0) gm/dl Globulin 5.0 H (2.5-4.0) gm/dl Albumin/Globulin Ratio 0.7 L (0.9-2) Lipase 71 L (73-393) U/L HCG, Qual (Negative) COVID-19 Eval Order SARS-CoV-2, RNA, NAAT (NEGATIVE) Medications Administered Current Inpatient Medications Acetaminophen (Acetaminophen 325 Mg Tab) 650 mg PO Q4H PRN PRN Reason: Pain or Fever Stop: 01/03/21 14:34 Al Hydrox/Mg Hydrox/Simethicone (Aluminum/Magnesium Susp 30 Ml Udc) 15 ml PO Q4H PRN PRN Reason: Dyspepsia Stop: 01/03/21 14:34 Buspirone HCl (Buspirone 5 Mg Tab) 5 mg PO TID DONOVAN Stop: 01/03/21 14:59 Last Admin: 12/04/20 22:11 Dose: 5 mg Documented by: Chlordiazepoxide HCl (Chlordiazepoxide Hcl 25 Mg Cap) 50 mg PO Q6H DONOVAN; Taper Stop: 12/07/20 15:59 Last Admin: 12/05/20 04:13 Dose: 50 mg Documented by: Chlordiazepoxide HCl (Chlordiazepoxide Hcl 10 Mg Cap) 10 mg PO Q12H DONOVAN Stop: 12/08/20 04:01 Folic Acid (Folic Acid 1 Mg Tab) 1 mg PO QAM DONOVAN Stop: 01/04/21 08:59 Hydromorphone HCl (Hydromorphone Inj 0.5 Mg/0.5 Ml Syr) 0.5 mg IV Q4H PRN PRN Reason: Pain Stop: 12/18/20 13:05 Last Admin: 12/05/20 04:13 Dose: 0.5 mg Documented by: Lorazepam (Ativan) 1 mg in 2 mls @ 2 mls/min IV UD PRN; Protocol PRN Reason: EtOH Withdrawl AWSS Score 6,7 Stop: 01/03/21 11:27 Last Admin: 12/04/20 23:44 Dose: 2 mls/min Documented by: Lorazepam (Ativan) 2 mg in 4 mls @ 4 mls/min IV UD PRN; Protocol PRN Reason: EtOH Withdrawl AWSS Score 8,9 Stop: 01/03/21 11:27 Last Admin: 12/04/20 14:30 Dose: 4 mls/min Documented by: Lorazepam (Ativan) 3 mg in 6 mls @ 4 mls/min IV ONCE PRN; Protocol PRN Reason: EtOH Withdrawl AWSS Score >=10 Stop: 01/03/21 11:27 Lactated Ringer's (Lr) 1,000 mls @ 150 mls/hr IV .Q6H40M [facility] Stop: 01/03/21 14:34 Last Admin: 12/05/20 05:03 Dose: 150 mls/hr Documented by: Potassium Chloride (K Derek / Wtr) 10 meq in 100 mls @ 100 mls/hr IV Q1H [facility] Stop: 12/05/20 09:44 Magnesium Hydroxide (Magnesium Hydroxide Susp 30 Ml Udc) 30 ml PO Q12H PRN PRN Reason: Constipation Stop: 01/03/21 14:34 Ondansetron HCl (Ondansetron Inj 2 Mg/Ml 2 Ml Vial) 4 mg IV Q6H PRN PRN Reason: Nausea Stop: 01/03/21 14:34 Oxycodone HCl (Oxycodone Hcl Ir 5 Mg Tab (Immediate Release)) 5 mg PO Q4H PRN PRN Reason: Pain Stop: 12/18/20 22:40 Last Admin: 12/05/20 03:05 Dose: 5 mg Documented by: Polyethylene Glycol (Polyethylene (Miralax) 17 Gm Pack) 17 gm PO DAILY PRN PRN Reason: Constipation Stop: 01/03/21 14:34 Potassium Chloride (Potassium Chloride Crtab 20 Meq Tabcr) 20 meq PO ONE ONE Stop: 12/05/20 07:46 Thiamine HCl (Thiamine Hcl 100 Mg Tab) 100 mg PO QAM [facility] Stop: 01/04/21 08:59 (1) Depression Depression Type: unspecified Qualified Code(s): F32.9 - Major depressive disorder, single episode, unspecified
[2020-12-05] MEDS ORDERED: POTASSIUM CHLORIDE CRTAB 20 MEQ TABCR PO ONE (07:45)
[2020-12-05] MEDS ORDERED: FOLIC ACID 1 MG TAB PO SCH (09:00)
[2020-12-05] MEDS ORDERED: THIAMINE HCL 100 MG TAB PO SCH (09:00)
[2020-12-05] MEDS: busPIRone 5 MG TAB PO SCH ×3 (09:19→21:33)
[2020-12-05] MEDS: POTASSIUM CHLORIDE / WTR 10 MEQ/100 ML PLCT IV SCH ×2 (09:19→11:08)
[2020-12-05] MEDS: MAGNESIUM SULFATE / D5W 1 GM/100 ML BAG IV SCH ×2 (09:19→10:21)
--- NOTE | 2020-12-05 10:33 | Gastrointestinal Consultation ---
Date of Consultation December 05, 2020 Assessment & Plan (1) Alcohol withdrawal: Appreciate hospitalists management of ETOH withdrawal. Encouraged formal rehab program. Elevated LFTs secondary to mild alcoholic hepatitis. Would expect to trend down. Will check PT/INR tomorrow but expect a low discriminant function and no need to tx with steroids or trental. Present on Admission?: Yes (2) Abdominal pain: Likely secondary to a combination of ETOH gastritis and some pain from removal of the stent. She also talks about being sensitive to pain - part of her alcoholism. No clear indication for EGD at this time as not suggestion of any complications on CT. Continue antiemetics prn. Will try clear liquids po and will advance as tolerated. Present on Admission?: Yes Supervising Physician Co-Signing Physician Notes I have seen and discussed the management with HEIKE Kohli. GI consult for abd pain- recent stent removal on 11/30. Drank alcohol over the weekend- likely this is causing mild inflammation in her lft's and her pain. She is remorseful over her drinkign when speaking with her today as she says she knows she can stay sober and went through 3 weeks of sobriety recently. Tolerating liquids PE - remorseful over drinking abd - soft nt nd +bs labs reviewed Agree with further plan of care as per Efrain's plan of care. History of Present Illness Reason for Consultation: Walled off necrosis of the pancreas, S/P stent removal. Requesting Physician: Dr. 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 She had been sober x 4 weeks but relapsed, binge drinking since Thursday after the procedure. She explains that the trigger to start to drink was that she experienced epigastric pain beginning a few hrs after the stent removal. 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 CT on arrival with improvement of the pseudocyst compared to prior, also with gastric wall thickening. LFTs, are elevated at T Bili 2.0, AST 79, ALT 43, ALk Phos 145 but improved compared to a month ago. No fevers, no leukocytosis and lipase is normal. She is awake, alert, oriented. No tremors. No confusion though still mildly tachycardic at 95- 110. She has continued to pass BMs, most recently yesterday, brown, formed. She had a lot of vomiting yesterday (resolved today). Truman any hematemesis. Her epigastric pain continues, rated between 6 and 8. She tells me that she is willing to try eating and drinking that it has helped her feel better during similar symptoms in the past. Allergies Allergy/AdvReac Type Severity Reaction Status Date / Time tramadol Allergy Severe Seizure Verified 12/04/20 10:02 gabapentin Allergy Intermediate Hallucinati Verified 12/04/20 10:02 ng ketorolac [From Toradol] Allergy Mild shaky, Verified 12/04/20 10:02 dizzy, uneasy feeling Home Medications Medication Instructions Recorded Confirmed Type folic acid 1 mg PO QAM #0 tab 11/08/20 12/04/20 Rx thiamine HCl (vitamin B1) [Vitamin 100 mg PO QAM #0 tab 11/08/20 12/04/20 Rx B-1] buspirone 5 mg PO TID 11/21/20 12/04/20 History naltrexone 50 mg PO QAM 11/21/20 12/04/20 History Patient History Medical History (Updated 12/04/20 @ 14:44 by Дмитрий Wetzel DO) Alcohol abuse Anxiety Anxiety History of COVID-19 diagnosed 10/09/2020 @ [facility]--asymptomatic at first then developed cough, sore throat, low grade fever for 1-2 days--not hospitalized History of kidney stones History of narcotic addiction ?? pt denied ?? Hypertension Migraine Nonischemic cardiomyopathy Pancreatic necrosis Pancreatic pseudocyst Pancreatitis Surgical History H/O esophagogastroduodenoscopy Endoscopic US hx of endoscopic necrosectomy 08/2020 History of colposcopy History of dental surgery History of laparoscopic cholecystectomy History of tooth extraction History of wisdom tooth extraction Family History Grandfather (Paternal) Diabetes Grandmother (Maternal) Diabetes Mother Family history of diabetes mellitus Other No family history of adverse response to anesthesia Social History (Updated 12/04/20 @ 13:57 by Shelby King PA-C) Smoking Status: Never smoker Second Hand Exposure: No; Hx Alcohol Use: Yes Alcohol type: wine Alcohol Intake Frequency: 4 or More x per/Week Alcohol Intake Frequency Comment: 1 bottle of wine per night x past 3 nights. Sober for 3 weeks previous Hx Substance Use: No Preferred Language: Jordanian Communication Ability: Effective Lining Marker Required: No Beliefs That Will Affect Care: None marital status: Current Living Situation: Spouse Current Living Situation Comment: Lives with and 5 kids How many Children do You have: 5 Other Information That Helps Us Care for You: No Feels Safe at Home: Yes Safety Concerns: Feels Safe At This Time Assistive Devices: Glasses Assistive Devices Comment: upper partial bridge Review of Systems Review of Systems: ROS: Gen: Depression - denies thoughts of self harm; continues with tx of alcoholism, on Naltrexone. Denies weakness, fevers, weight loss Eyes: No eye redness, or pain, no recent vision changes Resp: No SOB, no cough Cardio: No palpitations/irregular beats, no chest pain GI: See HPI, otherwise normal. : Denies pain on urination Skin: No jaundice, itching or new rashes Physical Exam Constitutional: WD/WN, vitals as above well groomed and cooperative; not diaphoretic and not edematous Eyes: PERRL, conjunctivae normal, anicteric sclerae ENMT: external ear and nose normal, oropharynx normal Neck: trachea midline, no thyromegaly Respiratory: normal respiratory effort, lungs clear to auscultation Cardiovascular: RRR, no murmur, no edema Gastrointestinal (Abdomen): Inspection/Auscultation: + hypoactive bowel sounds; abdomen not distended and no abdominal edema Percussion/Palpation: + abdomen tender (moderately tender in the epigastric area) and abdomen soft Skin: no rashes, warm and dry normal turgor Neurologic: PERRL, EOMI, accommodation nl, no face palsy, no dysarthria Psychiatric: A+Ox3, euthymic affect Eye Contact: good eye contact Lymphatic: no cervical or axillary lymphadenopathy Results & Data ([facility]) Vital Signs (Past 12 Hours) Vital Signs Temp Pulse Pulse Resp BP BP Pulse Ox 12/05/20 07:36 36.7 C 90 19 154/124 H 98 12/05/20 04:21 37.1 C 98 H 18 155/96 H 98 12/05/20 02:00 36.8 C 102 H 18 162/99 H 99 12/05/20 01:12 96 H 12/04/20 23:11 36.8 C 94 H 18 146/110 H 99 Laboratory Results WBC 6, Hb 13, Hct 39, Plats 363, Na 139, NK 3.5, BUN 5, Cr 0.62, Glucose 95. Diagnostic Findings CT abd/pelvis with IV contrast on 12/05/20: 1. Overall, improvement since prior CT. Interval removal of the cyst gastrostomy tube. Decrease in size of the rim-enhancing peripancreatic fluid collection since CT of November 06, 2020 and mild decrease in infiltration and fluid adjacent to the stomach, pancreatic tail and spleen. Persistent gastric wall thickening. Peritoneal nodularity persists although mildly improved since earlier CTs. 2. Otherwise, no significant change since prior CT. 3. Severe hepatic steatosis. 4. No bowel obstruction. Normal appendix. (1) Abdominal pain Abdominal location: upper abdomen, unspecified Qualified Code(s): R10.10 - Upper abdominal pain, unspecified
[2020-12-05 11:07] LABS: Appearance Urine Clear (Clear); Bilirubin Urine Negative (Negative); Blood Urine Negative (Negative); Color Urine Yellow; Glucose Urine UA Negative (Negative); Ketones Urine Negative (Negative); Leukocyte Esterase Urine Negative (Negative); Nitrite Urine Negative (Negative); Protein Urine Negative (Negative); Specific Gravity Urine 1.007 (1.000-1.030); Urobilinogen Urine Negative (Negative); pH Urine 8.5 (4.5-7.5)
[2020-12-05] MEDS ORDERED: PANTOprazole 40 MG in SYRINGE 0 ML IV SCH (11:45)
[2020-12-05] MEDS ORDERED: Nursing to Pharmacy Communication SCH (20:45)
[2020-12-05 23:08] VITALS: O2SAT 98
[2020-12-06] MEDS: HYDROmorphone INJ 0.5 MG/0.5 ML SYR IV PRN ×2 (01:06→05:30)
[2020-12-06 05:27] VITALS: BP 135/93; TEMP 98.1
--- NOTE | 2020-12-06 06:03 | Electrocardiogram Report ---
Test Reason : Blood Pressure : / mmHG Vent. Rate : 078 BPM Atrial Rate : 078 BPM P-R Int : 080 ms QRS Dur : 072 ms QT Int : 408 ms P-R-T Axes : -16 032 060 degrees QTc Int : 465 ms Sinus rhythm with short DE Nonspecific T wave abnormality Abnormal ECG When compared with ECG of 04-DEC-2020 09:30, Vent. rate has decreased BY 41 BPM Questionable change in QRS axis Nonspecific T wave abnormality, improved in Lateral leads Confirmed by Ugo Pham ([id number]) on 12/06/2020 6:03:23 AM Referred By: REFERRED SELF Confirmed By:Ugo Pham
[2020-12-06 07:07] LABS: Hematocrit (blood only) 43.1 % (37-47); Hemoglobin 14.5 g/dL (12.0-16.0); Mean Corpuscular Hemoglobin 33.1 pg (25-34); Mean Corpuscular Hgb Conc 33.6 g/dL (32-36); Mean Corpuscular Volume 98.4 fL (80-100); Mean Platelet Volume 9.5 fL (7.4-10.4); Platelet Count 360 K/uL (130-400); RDW Coefficient of Variation 12.2 % (11.5-14.5); RDW Standard Deviation 44.1 fL (36.4-46.3); Red Blood Count 4.38 M/uL (4.2-5.4); White Blood Count 5.33 K/uL (4.8-10.8)
[2020-12-06 07:17] LABS: INR 1.1 (0.9-1.1); Prothrombin Time 10.9 Seconds (9.0-12.0)
[2020-12-06 07:39] LABS: Albumin Level 3.1 gm/dl (3.4-5.0); BUN Creatinine Ratio 5.1 (10-20); Calcium 8.3 mg/dl (8.5-10.1); Creatinine Clr Calc Pharmacy 86.3 ml/min; Est GFR (African American) 122.6; Est GFR (Non-African American) 105.8; Magnesium 1.9 mg/dl (1.8-2.4); Potassium 3.7 mmol/L (3.5-5.1)
[2020-12-06] MEDS: LACTATED RINGER'S 1,000 ML IV SCH (07:41)
[2020-12-06] MEDS: oxyCODONE HCL IR 5 MG TAB (IMMEDIATE RELEASE) PO PRN (07:41)
[2020-12-06 07:46] LABS: Albumin Globulin Ratio 0.8 (0.9-2); Bilirubin,Total 1.3 mg/dl (0.2-1); Phosphorus 3.6 mg/dl (2.5-4.9); Total Protein 7.1 gm/dl (6.4-8.2)
[2020-12-06] MEDS ORDERED: POTASSIUM CHLORIDE CRTAB 20 MEQ TABCR PO STA (08:03)
--- NOTE | 2020-12-06 08:05 | Hospitalist Progress Note ---
Date of Service December 06, 2020 Assessment & Plan (1) Gastritis: (2) Pancreatic pseudocyst/cyst: This is a 40yo F with PMH of recurrent alcoholic pancreatitis, history pancreatic pseudocyst/necrosis status post stent removal on 11/30, alcohol use disorder, history of nonischemic cardiomyopathy (EF 55-60 TTE 2019), anxiety, depression and other medical problems listed below who presents with worsening epigastric pain x 4 days. Hx of recurrent etoh pancreatitis, [place] [facility] [place] for acute pancreatitis with walled off pancreatic necrosis, s/p removal of the previously placed stent on 11/30 Epigastric pain, nausea and vomiting since stent removal on Thursday - also resumed binge drinking alcohol Pain likely secondary to ETOH gastritis and some pain from removal of the stent. Initially believed pain 2/[address] abd/pelvis with interval removal of the cyst gastrostomy tube. Decrease in size of the rim-enhancing peripancreatic fluid collection since CT of 11/06/20. Otherwise, no significant change since prior CT. Severe hepatic steatosis Initially NPO , now tolerated clear liquid diet, feels hungry and reports epigastric pain seems better when she eats, will advance diet LR @ 150cc/hr, decrease the rate next day IV PPI Pain control GI consult - No clear indication for EGD at this time as not suggestion of any complications on CT. Elevated LFTs secondary to mild alcoholic hepatitis. Would expect to trend down. Will check PT/INR tomorrow but expect a low discriminant function and no need to tx with steroids or trental. Clinically improved, tolerating now regular diet. However still using some pain medications. Pt reports she will be ok w/o pain meds and that she feels much better now. Determined to quit alcohol use. Will send Rx for PPI and sucralfate. (3) Alcohol withdrawal: Resumed drinking bottle of wine for past 3 nights, last drink night prior to admission Tremulous, anxious and tachycardic AWSS for etoh withdrawal. Using Librium due to h/o hallucinations with gabapentin. Ativan PRN Thiamine and MV supplement Holding home Naltrexone Interested in continued pursuit for sobriety- case mgmt consulted (4) Hypokalemia: Initial potassium of 2.8. Replete and monitor Hypomagnesemia Mag 1.3 Replete and monitor (5) High anion gap metabolic acidosis: Anion gap of 16. Continue fluid resuscitation, electrolyte replacement. Expect improvement - repeat BMP this afternoon Now resolved (6) Elevated troponin: Troponin 0.061 in setting of tachycardia, alcohol withdrawal. Chronically elevated during previous admissions as well. No acute EKG changes or chest pain Monitor on telemetry, trend troponin - stable (7) NICM (nonischemic cardiomyopathy): History of nonischemic cardiomyopathy (EF 55-60 TTE 2019) Has not followed up with cardiology in the past No fluid overload, cont. to monitor fluid status (8) Depression: Not currently taking medication to treat depression (9) Anxiety: Continue Buspar DVT Ppx: sandra owens Code status: FULL PCP: Dr. Arroyo Dispo: Admitted to PCU. Plan to DC home w/ close follow up with PCP. Admission and Anticipated Discharge Date Admission Date: December 04, 2020 Subjective Pt seen in follow up of abdominal pain Currently siting up in bed in NAD, but been using IV and PO narcotics She however reports that she feels much better and denies significant abd. pain. She wants to go home. Explained that if she is using so much pain meds she may not be ready to go home yet. Pt insists that she will be ok and that she has PCP follow up already scheduled. She understands the danger of opiates and of benzoes that she has been given in the hospital. Started regular diet last evening and tolerated well. She is determined to quit alcohol. No fever, chills, chest pain or shortness of breath. Review of Systems Review of Systems: All systems reviewed & are unremarkable except as noted in HPI & below Constitutional: no fever and no chills Respiratory: no cough and no dyspnea Cardiovascular: no chest pain and no palpitations Gastrointestinal: + abdominal pain (much improved); no nausea and no vomiting Physical Exam Physical Exam: General Appearance: vitals as above,sitting up in bed, in NAD Head: normocephalic, atraumatic Eyes: normal inspection, PERRL, EOMI, conjunctivae normal, anicteric sclerae ENT: external ear and nose normal, oropharynx normal Neck: normal visual inspection, trachea midline, no thyromegaly Respiratory: normal respiratory effort, lungs clear to auscultation, no wheeze, rales, rhonchi. No accessory muscle use Cardiovascular: RRR, no murmur appreciated, normal peripheral pulses, no BLE edema. Vessels: no JVD Chest: normal inspection of chest Abdomen/GI: normal bowel sounds, soft, mildly TTP- most pronounced in epigastrium (much improved). No guarding Extremities/Musculoskeletal: no cyanosis or clubbing, extremities motor strength 5/5 Neurologic: PERRL, EOMI, no face palsy, no dysarthria, CN's II-XI intact bilaterally and moves all extremities Psychiatric: A+Ox3 Skin: no rashes, normal color, warm/dry Results & Data Results & Data ([facility]) Vital Signs (Past 12 Hours) Vital Signs Temp Pulse Pulse Resp BP BP Pulse Ox 12/06/20 04:00 36.7 C 79 18 135/93 98 12/06/20 02:10 92 H 12/05/20 23:07 36.8 C 87 17 134/95 98 Laboratory Results 12/06/20 12/06/20 12/06/20 Range/Units 06:45 06:45 06:45 WBC 5.33 (4.8-10.8) K/uL RBC 4.38 (4.2-5.4) M/uL Hgb 14.5 (12.0-16.0) g/dL Hct 43.1 (37-47) % MCV 98.4 (80-100) fL MCH 33.1 (25-34) pg MCHC 33.6 (32-36) g/dL RDW Std Deviation 44.1 (36.4-46.3) fL RDW Coeff of Hanna 12.2 (11.5-14.5) % Plt Count 360 (130-400) K/uL MPV 9.5 (7.4-10.4) fL PT 10.9 (9.0-12.0) Seconds INR 1.1 (0.9-1.1) Sodium 141 (136-145) mmol/L Potassium 3.7 (3.5-5.1) mmol/L Chloride 108 H (98-107) mmol/L Carbon Dioxide 26 (21-32) mmol/L Anion Gap 7.0 (3-11) BUN 4 L (7-18) mg/dl Creatinine 0.71 (0.6-1.2) mg/dl Est Cr Clr Drug Dosing 86.3 ml/min Est GFR ( Amer) 122.6 Est GFR (Non-Af Amer) 105.8 BUN/Creatinine Ratio 5.1 L (10-20) Glucose 89 (70-99) mg/dl Calcium 8.3 L (8.5-10.1) mg/dl Phosphorus 3.6 (2.5-4.9) mg/dl Magnesium 1.9 (1.8-2.4) mg/dl Total Bilirubin 1.3 H (0.2-1) mg/dl AST 60 H (15-37) U/L ALT 38 (12-78) U/L Alkaline Phosphatase 160 H (45-117) U/L Total Protein 7.1 (6.4-8.2) gm/dl Albumin 3.1 L (3.4-5.0) gm/dl Globulin 4.0 (2.5-4.0) gm/dl Albumin/Globulin Ratio 0.8 L (0.9-2) Urine Color Urine Appearance (Clear) Urine pH (4.5-7.5) Ur Specific Goltry (1.000-1.030) Urine Protein (Negative) Urine Glucose (UA) (Negative) Urine Ketones (Negative) Urine Blood (Negative) Urine Nitrite (Negative) Urine Bilirubin (Negative) Urine Urobilinogen (Negative) Ur Leukocyte Esterase (Negative) 12/05/20 12/05/20 Range/Units 11:00 06:20 WBC (4.8-10.8) K/uL RBC (4.2-5.4) M/uL Hgb (12.0-16.0) g/dL Hct (37-47) % MCV (80-100) fL MCH (25-34) pg MCHC (32-36) g/dL RDW Std Deviation (36.4-46.3) fL RDW Coeff of Hanna (11.5-14.5) % Plt Count (130-400) K/uL MPV (7.4-10.4) fL PT (9.0-12.0) Seconds INR (0.9-1.1) Sodium (136-145) mmol/L Potassium (3.5-5.1) mmol/L Chloride (98-107) mmol/L Carbon Dioxide (21-32) mmol/L Anion Gap (3-11) BUN (7-18) mg/dl Creatinine (0.6-1.2) mg/dl Est Cr Clr Drug Dosing ml/min Est GFR ( Amer) Est GFR (Non-Af Amer) BUN/Creatinine Ratio (10-20) Glucose (70-99) mg/dl Calcium (8.5-10.1) mg/dl Phosphorus 3.4 (2.5-4.9) mg/dl Magnesium (1.8-2.4) mg/dl Total Bilirubin (0.2-1) mg/dl AST (15-37) U/L ALT (12-78) U/L Alkaline Phosphatase (45-117) U/L Total Protein (6.4-8.2) gm/dl Albumin (3.4-5.0) gm/dl Globulin (2.5-4.0) gm/dl Albumin/Globulin Ratio (0.9-2) Urine Color Yellow Urine Appearance Clear (Clear) Urine pH 8.5 H (4.5-7.5) Ur Specific Goltry 1.007 (1.000-1.030) Urine Protein Negative (Negative) Urine Glucose (UA) Negative (Negative) Urine Ketones Negative (Negative) Urine Blood Negative (Negative) Urine Nitrite Negative (Negative) Urine Bilirubin Negative (Negative) Urine Urobilinogen Negative (Negative) Ur Leukocyte Esterase Negative (Negative) Medications Administered Current Inpatient Medications Acetaminophen (Acetaminophen 325 Mg Tab) 650 mg PO Q4H PRN PRN Reason: Pain or Fever Stop: 01/03/21 14:34 Al Hydrox/Mg Hydrox/Simethicone (Aluminum/Magnesium Susp 30 Ml Udc) 15 ml PO Q4H PRN PRN Reason: Dyspepsia Stop: 01/03/21 14:34 Buspirone HCl (Buspirone 5 Mg Tab) 5 mg PO TID DONOVAN Stop: 01/03/21 14:59 Last Admin: 12/05/20 21:33 Dose: 5 mg Documented by: Chlordiazepoxide HCl (Chlordiazepoxide Hcl 25 Mg Cap) 50 mg PO Q8H DONOVAN; Taper Stop: 12/07/20 15:59 Last Admin: 12/05/20 23:58 Dose: 50 mg Documented by: Chlordiazepoxide HCl (Chlordiazepoxide Hcl 10 Mg Cap) 10 mg PO Q12H DONOVAN Stop: 12/08/20 04:01 Folic Acid (Folic Acid 1 Mg Tab) 1 mg PO QAM [facility] Stop: 01/04/21 08:59 Last Admin: 12/05/20 09:20 Dose: 1 mg Documented by: Hydromorphone HCl (Hydromorphone Inj 0.5 Mg/0.5 Ml Syr) 0.5 mg IV Q4H PRN PRN Reason: Pain Stop: 12/18/20 13:05 Last Admin: 12/06/20 05:30 Dose: 0.5 mg Documented by: Lorazepam (Ativan) 1 mg in 2 mls @ 2 mls/min IV UD PRN; Protocol PRN Reason: EtOH Withdrawl AWSS Score 6,7 Stop: 01/03/21 11:27 Last Admin: 12/04/20 23:44 Dose: 2 mls/min Documented by: Lorazepam (Ativan) 2 mg in 4 mls @ 4 mls/min IV UD PRN; Protocol PRN Reason: EtOH Withdrawl AWSS Score 8,9 Stop: 01/03/21 11:27 Last Admin: 12/04/20 14:30 Dose: 4 mls/min Documented by: Lorazepam (Ativan) 3 mg in 6 mls @ 4 mls/min IV ONCE PRN; Protocol PRN Reason: EtOH Withdrawl AWSS Score >=10 Stop: 01/03/21 11:27 Lactated Ringer's (Lr) 1,000 mls @ 80 mls/hr IV .[id number] [facility] Stop: 01/03/21 14:34 Last Admin: 12/06/20 07:41 Dose: 80 mls/hr Documented by: Thiamine HCl 100 mg/ Syringe 10 mls @ 2 mls/min IV QAM [facility] Stop: 01/05/21 08:59 Folic Acid 1 mg/ Syringe 10 mls @ 5 mls/min IV QAM [facility] Stop: 01/05/21 08:59 Pantoprazole Sodium 40 mg/ (Syringe) 10 mls @ 5 mls/min IV DAILY@1100 [facility] Stop: 01/04/21 11:44 Last Admin: 12/05/20 12:22 Dose: 5 mls/min Documented by: Magnesium Hydroxide (Magnesium Hydroxide Susp 30 Ml Udc) 30 ml PO Q12H PRN PRN Reason: Constipation Stop: 01/03/21 14:34 Ondansetron HCl (Ondansetron Inj 2 Mg/Ml 2 Ml Vial) 4 mg IV Q6H PRN PRN Reason: Nausea Stop: 01/03/21 14:34 Last Admin: 12/05/20 16:31 Dose: 4 mg Documented by: Oxycodone HCl (Oxycodone Hcl Ir 5 Mg Tab (Immediate Release)) 5 mg PO Q4H PRN PRN Reason: Pain Stop: 12/18/20 22:40 Last Admin: 12/06/20 07:41 Dose: 5 mg Documented by: Polyethylene Glycol (Polyethylene (Miralax) 17 Gm Pack) 17 gm PO DAILY PRN PRN Reason: Constipation Stop: 01/03/21 14:34 Potassium Chloride (Potassium Chloride Crtab 20 Meq Tabcr) 20 meq PO NOW STA Stop: 12/06/20 08:04 Thiamine HCl (Thiamine Hcl 100 Mg Tab) 100 mg PO QAM DONOVAN Stop: 01/04/21 08:59 Last Admin: 12/05/20 09:19 Dose: 100 mg Documented by: (1) Depression Depression Type: unspecified Qualified Code(s): F32.9 - Major depressive disorder, single episode, unspecified
[2020-12-06] MEDS: busPIRone 5 MG TAB PO SCH (08:48)
[2020-12-06] MEDS: chlordiazePOXIDE HCl 25 MG CAP PO SCH (08:53)
[2020-12-06] MEDS ORDERED: FOLIC ACID 1 MG in SYRINGE 9.8 ML IV SCH (09:00)
[2020-12-06] MEDS ORDERED: THIAMINE HCL 100 MG in SYRINGE 9 ML IV SCH (09:00)
--- NOTE | 2020-12-06 10:22 | Gastroenterology Progress Note ---
Date of Service December 06, 2020 Assessment & Plan (1) Alcohol withdrawal: DF is very low (-3.7), no indication for steroids. 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 Pt seem motivated and has plan for counselling. Present on Admission?: Yes (2) Pancreatic pseudocyst/cyst: Improved after Axios insertion and removal. Present on Admission?: Yes (3) Acute pancreatitis: Pain much improved - would limit/discontinue narcotics. GI will sign off. No contraindication to discharge. Present on Admission?: Yes Admission and Anticipated Discharge Date Admission Date: December 04, 2020 Supervising Physician Co-Signing Physician Notes I have seen and discussed the management with HEIKE Kohli. PE unchanged Labs/imaging reviewed- agree with further plan of care as documented in Efrain's plan of care. Subjective Awake alert oriented hemodynamically stable sitting up in bed. Ate a regular consistency breakfast without any increased abdominal pain. Tells me she is ready to start weaning off the narcotic medications. Hopes to go home today. LFTs improved today. DF is low (-3.7) so no significant ETOH and no indication for steroids. Review of Systems Review of Systems: ROS: Gen: Depression - denies thoughts of self harm; continues with tx of alcoholism, on Naltrexone. Denies weakness, fevers, weight loss Eyes: No eye redness, or pain, no recent vision changes Resp: No SOB, no cough Cardio: No palpitations/irregular beats, no chest pain GI: See HPI, otherwise normal. : Denies pain on urination Skin: No jaundice, itching or new rashes Physical Exam Constitutional: WD/WN, vitals as above well groomed and cooperative; not diaphoretic and not edematous Eyes: PERRL, conjunctivae normal, anicteric sclerae ENMT: external ear and nose normal, oropharynx normal Neck: trachea midline, no thyromegaly Respiratory: normal respiratory effort, lungs clear to auscultation Cardiovascular: RRR, no murmur, no edema Gastrointestinal (Abdomen): Inspection/Auscultation: + hypoactive bowel sounds; abdomen not distended and no abdominal edema Percussion/Palpation: + abdomen tender (moderately tender in the epigastric area) and abdomen soft Skin: no rashes, warm and dry normal turgor Neurologic: PERRL, EOMI, accommodation nl, no face palsy, no dysarthria Psychiatric: A+Ox3, euthymic affect Eye Contact: good eye contact Lymphatic: no cervical or axillary lymphadenopathy Results & Data ([facility]) Vital Signs (Past 12 Hours) Vital Signs Temp Pulse Pulse Resp BP BP Pulse Ox 12/06/20 08:00 102 H 12/06/20 04:00 36.7 C 79 18 135/93 98 12/06/20 02:10 92 H 12/05/20 23:07 36.8 C 87 17 134/95 98 Laboratory Results WBC 5, Hb 14, Hct 43, platelets 360, INR 1.1, Na 141, K3.7, BUN 4, Cr 0.7, glucose 89, T bili 1.3, AST 60, ALT 38, alk phos 160. Diagnostic Findings CT abd/pelvis with IV contrast on 11/03/20: Overall, improvement since prior CT. Interval removal of the cyst gastrostomy tube. Decrease in size of the rim- enhancing peripancreatic fluid collection since CT of November 06, 2020 and mild decrease in infiltration and fluid adjacent to the stomach, pancreatic tail and spleen. Persistent gastric wall thickening. Peritoneal nodularity persists although mildly improved since earlier CTs. (1) Acute pancreatitis Acute pancreatitis complication: unspecified Pancreatitis type: unspecified pancreatitis type Qualified Code(s): K85.90 - Acute pancreatitis without necrosis or infection, unspecified
[2020-12-06 11:02] VITALS: PULSE 79
--- NOTE | 2020-12-06 11:41 | Discharge Summary ---
Date of Service December 06, 2020 Admission HPI Per Admitting Provider This is a 40yo F with PMH of recurrent alcoholic pancreatitis, history pancreatic pseudocyst/necrosis status post stent removal on 11/30, alcohol use disorder, history of nonischemic cardiomyopathy (EF 55-60 TTE 2019), anxiety, depression and other medical problems listed below who presents with worsening epigastric pain x 4 days. Patient with history of axial stent placement at [facility] several months ago for acute pancreatitis with walled off pancreatic necrosis. Underwent EGD on 11/30 for removal of the previously placed stent. Endorses epigastric pain directly after procedure that has pers isted since then. Pain is described as constant sharp pain in central abdomen made worse with food and movement. Improved slightly after administration of pain medication in ED. Started to drink alcohol Thursday evening and endorses 1 bottle of wine per night since then with last drink last evening. Had gone 3 weeks without drinking previous to 11/30. Developed nausea and vomiting this morning with inability to keep anything down, including water. Endorses poor nutrition over the weekend since she resumed alcohol intake. Denies any fever chills. No headache, chest pain, palpitations, dysuria, diarrhea or constipation. Denies hallucinations or seizures. Admission Exam Per Admitting Provider General Appearance: vitals as above,sitting up in bed, in acute pain, anxious, tremulous Head: normocephalic, atraumatic Eyes: normal inspection, PERRL, conjunctivae normal, anicteric sclerae ENT: external ear and nose normal, oropharynx normal Neck: normal visual inspection, trachea midline, no thyromegaly Respiratory: normal respiratory effort, lungs clear to auscultation, no wheeze, rales, rhonchi. No accessory muscle use Cardiovascular: Tachycardic rate, rhythm, no murmur appreciated, normal peripheral pulses, no BLE edema. Vessels: no JVD Chest: normal inspection of chest Abdomen/GI: normal bowel sounds, soft but diffusely TTP- most pronounced in epigastrium. No guarding, no hepatosplenomegaly Extremities/Musculoskeletal: no cyanosis or clubbing, extremities motor strength 5/5 Neurologic: PERRL, EOMI, accommodation nl, no face palsy, no dysarthria, CN's II-XI intact bilaterally and moves all extremities Psychiatric: A+Ox3, anxious Skin: no rashes, normal color, warm/dry Principal Diagnosis Alcoholic gastritis Alcohol withdrawal Elevated LFTs Elevated troponin High anion gap metabolic acidosis Hypokalemia Hypomagnesemia Discharge Exam General Appearance: vitals as above,sitting up in bed, in NAD Head: normocephalic, atraumatic Eyes: normal inspection, PERRL, EOMI, conjunctivae normal, anicteric sclerae ENT: external ear and nose normal, oropharynx normal Neck: normal visual inspection, trachea midline, no thyromegaly Respiratory: normal respiratory effort, lungs clear to auscultation, no wheeze, rales, rhonchi. No accessory muscle use Cardiovascular: RRR, no murmur appreciated, normal peripheral pulses, no BLE edema. Vessels: no JVD Chest: normal inspection of chest Abdomen/GI: normal bowel sounds, soft, mildly TTP- most pronounced in epigastrium (much improved). No guarding Extremities/Musculoskeletal: no cyanosis or clubbing, extremities motor strength 5/5 Neurologic: PERRL, EOMI, no face palsy, no dysarthria, CN's II-XI intact bilaterally and moves all extremities Psychiatric: A+Ox3 Skin: no rashes, normal color, warm/dry Discharge Data Allergies Allergy/AdvReac Type Severity Reaction Status Date / Time tramadol Allergy Severe Seizure Verified 12/04/20 10:02 gabapentin Allergy Intermediate Hallucinati Verified 12/04/20 10:02 ng ketorolac [From Toradol] Allergy Mild shaky, Verified 12/04/20 10:02 dizzy, uneasy feeling Consultations 12/04/20 11:13 ED Decision to Admit Stat 12/04/20 14:35 Consult Case Management - Discharge Planning Routine Consult Gastroenterology Routine Ordered Studies 12/04/20 10:09 CT abd pelvis IV con only Stat IMPRESSION: 1. Overall, improvement since prior CT. Interval removal of the cyst gastrostomy tube. Decrease in size of the rim-enhancing peripancreatic fluid collection since CT of November 06, 2020 and mild decrease in infiltration and fluid adjacent to the stomach, pancreatic tail and spleen. Persistent gastric wall thickening. Peritoneal nodularity persists although mildly improved since earlier CTs. 2. Otherwise, no significant change since prior CT. 3. Severe hepatic steatosis. 4. No bowel obstruction. Normal appendix. Hospital Course (1) Gastritis: (2) Pancreatic pseudocyst/cyst: This is a 40yo F with PMH of recurrent alcoholic pancreatitis, history pancreatic pseudocyst/necrosis status post stent removal on 11/30, alcohol use disorder, history of nonischemic cardiomyopathy (EF 55-60 TTE 2019), anxiety, depression and other medical problems listed below who presents with worsening epigastric pain x 4 days. Hx of recurrent etoh pancreatitis, recent axial stent placement [place] [facility] [place] ago for acute pancreatitis with walled off pancreatic necrosis, s/p removal of the previously placed stent on 11/30 Epigastric pain, nausea and vomiting since stent removal on Thursday - also resumed binge drinking alcohol Pain likely secondary to ETOH gastritis and some pain from removal of the stent. Initially believed pain 2/[address]/pelvis with interval removal of the cyst gastrostomy tube. Decrease in size of the rim-enhancing peripancreatic fluid collection since CT of 11/06/20. Otherwise, no significant change since prior CT. Severe hepatic steatosis Initially NPO , now tolerated clear liquid diet, feels hungry and reports epigastric pain seems better when she eats, will advance diet LR @ 150cc/hr, decrease the rate next day IV PPI Pain control GI consult - No clear indication for EGD at this time as not suggestion of any complications on CT. Elevated LFTs secondary to mild alcoholic hepatitis. Would expect to trend down. Will check PT/INR tomorrow but expect a low discriminant function and no need to tx with steroids or trental. Clinically improved, tolerating now regular diet. However still using some pain medications. Pt reports she will be ok w/o pain meds and that she feels much better now. Determined to quit alcohol use. Will send Rx for PPI and sucralfate. (3) Alcohol withdrawal: Resumed drinking bottle of wine for past 3 nights, last drink night prior to admission Tremulous, anxious and tachycardic AWSS for etoh withdrawal. Using Librium due to h/o hallucinations with gabapentin. Ativan PRN Thiamine and MV supplement Holding home Naltrexone Interested in continued pursuit for sobriety- case mgmt consulted (4) Hypokalemia: Initial potassium of 2.8. Replete and monitor Hypomagnesemia Mag 1.3 Replete and monitor (5) High anion gap metabolic acidosis: Anion gap of 16. Continue fluid resuscitation, electrolyte replacement. Expect improvement - repeat BMP this afternoon Now resolved (6) Elevated troponin: Troponin 0.061 in setting of tachycardia, alcohol withdrawal. Chronically elevated during previous admissions as well. No acute EKG changes or chest pain Monitor on telemetry, trend troponin - stable (7) NICM (nonischemic cardiomyopathy): History of nonischemic cardiomyopathy (EF 55-60 TTE 2019) Has not followed up with cardiology in the past No fluid overload, cont. to monitor fluid status (8) Depression: Not currently taking medication to treat depression (9) Anxiety: Continue Buspar PCP: Dr. Arroyo Dispo: Admitted to PCU. Plan to DC home w/ close follow up with PCP. Total Time Total Time Spent Total Time Spent (In Minutes): 35 Total Time Includes: Examination of the Patient, Discharge Planning, Medication Reconciliation and Communication With Other Providers Discharge Plan Discharge Items Patient Disposition: Home - Self-Care Reason For Visit: PANCREATITIS,VOMITING Discharge Diagnosis: Alcoholic gastritis Alcohol withdrawal Elevated LFTs Elevated troponin High anion gap metabolic acidosis Hypokalemia Hypomagnesemia Activity: Per Instructions section Non-emergency contact: Primary Care Provider Call non-emergency contact if: you have any medication questions and your symptoms worsen Follow-up/Referrals: Marianela Arroyo MD [Primary Care Provider] - Diet: Regular Addtl Attending Provider Instructions: Follow up with primary care doctor, the appointment is scheduled for you for Thursday12/10/2020 at 9 AM. Take pantoprazole daily and sucralfate up to 4 times a day as needed. Discuss with your primary care doctor how long you should be using these medications. It is crucial that you completely abstain from alcohol. Pending Studies at Discharge: No Stand-Alone Forms: My [facility], Smoking Cessation Medications and DC Order Prescriptions: New sucralfate 100 mg/mL Suspension 10 ml PO QID Qty: 200 RF: 0 pantoprazole 40 mg tablet,delayed release (DR/EC) 40 mg PO DAILY Qty: 30 RF: 0 Continued buspirone 5 mg Tablet 5 mg PO TID RF: 0 naltrexone 50 mg Tablet 50 mg PO QAM RF: 0 thiamine HCl (vitamin B1) [Vitamin B-1] 100 mg Tablet 100 mg PO QAM Qty: 0 RF: 0 folic acid 1 mg Tablet 1 mg PO QAM Qty: 0 RF: 0 Discharge Orders: Discharge Order (Routine); Ordered 12/06/20 Ordered By: Paulino Parry/Other Patient Handouts: Understanding Pancreatitis, Discharge Instructions for ..., Pantoprazole tablets, Sucralfate tablets Admission Data Admit Date/Time: 12/04/20 11:28 Attending Provider: Paulino Higginbotham Admit Provider: Layne Martin Primary Care Provider: Marianela Arroyo Other Providers: Diana Barksdale ; Layne Martin Other Interventions: Discharge Summary Assessment (RN) Last Done: 12/06/20 11:02
[2020-12-06] MEDS ORDERED: SUCRALFATE 1 GM/10 ML UDC PO SCH (13:00)
--- NOTE | 2020-12-07 06:10 | Electrocardiogram Report ---
Test Reason : Blood Pressure : / mmHG Vent. Rate : 078 BPM Atrial Rate : 078 BPM P-R Int : 116 ms QRS Dur : 070 ms QT Int : 408 ms P-R-T Axes : 040 042 063 degrees QTc Int : 465 ms Normal sinus rhythm Normal ECG When compared with ECG of 05-DEC-2020 06:50, No significant change was found Confirmed by Ugo Pham ([id number]) on 12/07/2020 6:10:31 AM Referred By: REFERRED SELF Confirmed By:Ugo Pham
== END 2020-12-06 11:52 | disposition home or self-care (01) | DRG 392 ==
LOC: ED 09:17 → 2S 11:28 → SUATTDRO 11:28 → 2S 13:52

== ENCOUNTER 2020-12-17 08:18 | Inpatient (IN) ==
[2020-12-17] MEDS ORDERED: LORazepam 2 MG/4 ML VIAL ONE (08:43)
[2020-12-17] MEDS ORDERED: HYDROmorphone INJ 0.5 MG/0.5 ML SYR IV STA ×2 (08:46→11:00)
[2020-12-17] MEDS ORDERED: MULTI-VITAMIN INFUSION 10 ML, THIAMINE HCL 100 MG, FOLIC ACID 1 MG in SODIUM CHLORIDE 0... IV ONE (08:46)
[2020-12-17 08:56] LABS: Basophils # (auto) 0.03 K/uL (0-0.2); Basophils % (auto) 0.3 %; Hematocrit (blood only) 47.1 % (37-47); Hemoglobin 16.7 g/dL (12.0-16.0); Immature Granulocytes # (auto) 0.01 K/uL (0.00-0.02); Immature Granulocytes % (auto) 0.1 %; Lymphocytes # (auto) 0.72 K/uL (1.2-3.4); Mean Corpuscular Hemoglobin 33.1 pg (25-34); Mean Corpuscular Hgb Conc 35.5 g/dL (32-36); Mean Corpuscular Volume 93.5 fL (80-100); Mean Platelet Volume 9.6 fL (7.4-10.4); Monocytes # (auto) 0.54 K/uL (0.11-0.59); Monocytes % (auto) 5.2 %; Neutrophils # (auto) 9.05 K/uL (1.4-6.5); Neutrophils % (auto) 87.4 %; Platelet Count 523 K/uL (130-400); RDW Coefficient of Variation 12.3 % (11.5-14.5); RDW Standard Deviation 41.7 fL (36.4-46.3); Red Blood Count 5.04 M/uL (4.2-5.4); White Blood Count 10.35 K/uL (4.8-10.8)
[2020-12-17 09:18] LABS: Albumin Level 4.1 gm/dl (3.4-5.0); BUN Creatinine Ratio 9.3 (10-20); Calcium 9.7 mg/dl (8.5-10.1); Creatinine Clr Calc Pharmacy 57.2 ml/min; Est GFR (African American) 74.7; Est GFR (Non-African American) 64.4; Potassium 2.7 mmol/L (3.5-5.1)
[2020-12-17 09:23] LABS: Albumin Globulin Ratio 0.8 (0.9-2); Bilirubin,Total 1.5 mg/dl (0.2-1); Total Protein 9.1 gm/dl (6.4-8.2); Troponin I 0.033 ng/ml (0-0.045)
[2020-12-17] MEDS ORDERED: POTASSIUM CHLORIDE / WTR 10 MEQ/100 ML PLCT IV ONE (09:27)
--- NOTE | 2020-12-17 09:32 | XRay Report ---
XR chest 1V portable CLINICAL HISTORY: Atypical chest pain COMPARISON STUDY: 10/07/2020 FINDINGS: The cardiac and mediastinal contours are normal. There is no evidence of focal pulmonary co nsolidation. There is no evidence of failure. No pleural effusions are visualized.[ IMPRESSION: No active disease in the chest. ACT 112: Negative or not required by law. Electronically signed by: Andrade Singh M.D. 12/17/2020 9:30 AM
[2020-12-17] MEDS ORDERED: LORazepam 1 MG/2 ML VIAL IV STA (09:59)
--- NOTE | 2020-12-17 09:59 | Emergency Department Note ---
History of Present Illness General Chief complaint: Abdominal Pain Stated complaint: FAST HEART RATE Time Seen by Provider: 12/17/20 08:34 Source: patient Mode of arrival: ambulatory Limitations: no limitations History of Present Illness Maximum Pain Intensity: 8 This patient is a 40-year-old female who presents to the emergency department for evaluation of abdominal pain, vomiting and shakiness. Patient states that she has had issues with pancreatitis for the past 6 months. She is an alcoholic. She states that she is able to stop drinking when she is admitted, but shortly after returning home starts drinking again. She drank about 1/5 of vodka yesterday. She has had nothing to drink since last night. Patient states that this morning, her pain was worse and she developed some midsternal chest pain. She has been vomiting and states that she is shaky and has a fast heart rate. She has felt this way with withdrawal before. She denies any history of alcohol withdrawal seizures. She has never been to rehab. She does state that her outpatient therapist is trying to help her get set up with rehab. She rates her pain a 9/10. She denies any fevers. Home Medications Medication Instructions Recorded Confirmed Type naltrexone 50 mg PO QAM 11/21/20 12/17/20 History buspirone 5 mg PO TID 12/17/20 12/17/20 History chlordiazepoxide HCl 25 mg PO UD 12/17/20 12/17/20 History pantoprazole 40 mg PO DAILY 12/17/20 12/17/20 History sucralfate 1 g PO QID 12/17/20 12/17/20 History Allergies Allergy/AdvReac Type Severity Reaction Status Date / Time tramadol Allergy Severe Seizure Verified 12/17/20 09:00 gabapentin Allergy Intermediate Hallucinati Verified 12/17/20 09:00 ng ketorolac [From Toradol] Allergy Mild shaky, Verified 12/17/20 09:00 dizzy, uneasy feeling Past Med/Surg History Medical History Alcohol abuse Anxiety Depression History of COVID-19 diagnosed 10/09/2020 @ [facility]--asymptomatic at first then developed cough, sore throat, low grade fever for 1-2 days--not hospitalized History of kidney stones History of narcotic addiction Hypertension Migraine Nonischemic cardiomyopathy Pancreatic pseudocyst 08/2020 - AXIOS stent placement for pancreatic drainage, removed 11/30/20 Pancreatitis Surgical History H/O esophagogastroduodenoscopy Endoscopic US hx of endoscopic necrosectomy 08/2020 History of colposcopy History of dental surgery History of laparoscopic cholecystectomy History of tooth extraction History of wisdom tooth extraction Family History Grandfather (Paternal) Diabetes Grandmother (Maternal) Diabetes Mother Family history of diabetes mellitus Other No family history of adverse response to anesthesia Social History Smoking Status: Never smoker Second Hand Exposure: No; Do You Dip or Chew Tobacco: No; Tobacco Cessation Education Requested by Patient: No Hx Alcohol Use: Yes Alcohol type: wine and hard liquor Alcohol Intake Frequency: 4 or More x per/Week Hx Substance Use: No Preferred Language: Latvian Communication Ability: Effective Store Receiver Required: No Beliefs That Will Affect Care: None marital status: Current Living Situation: Spouse Current Living Situation Comment: Lives with and 5 kids How many Children do You have: 5 Other Information That Helps Us Care for You: No Feels Safe at Home: Yes Safety Concerns: Feels Safe At This Time Assistive Devices: None Review of Systems A total of 10 systems reviewed and were otherwise negative Physical Exam Vital Signs Vital Signs - 24 hr 12/17/20 08:20 12/17/20 08:39 12/17/20 08:44 Temperature 36.6 C Temperature Source Oral Pulse Rate 77 143 H 146 H Pulse Rate from SpO2 Sensor 150 H Pulse Rhythm Regular Pulse Strength Normal Respiratory Rate 26 H 22 20 Respiratory Effort / Characteristics Non-Labored Spontaneous Respiratory Depth Normal Respiratory Pattern Regular Blood Pressure 125/87 125/108 H Blood Pressure Mean 99 113 Pulse Oximetry 99 98 Oxygen Delivery Method Room Air Sepsis Recent Fever Within 48 Hours No Sepsis New/Unexplained Change in Mental Status N/A Sepsis Action Taken by Nursing No Action Required 12/17/20 09:11 12/17/20 09:30 12/17/20 10:00 Temperature Temperature Source Pulse Rate 120 H 117 H 132 H Pulse Rate from SpO2 Sensor 121 H 117 H 132 H Pulse Rhythm Pulse Strength Respiratory Rate 12 13 18 Respiratory Effort / Characteristics Respiratory Depth Respiratory Pattern Blood Pressure 143/111 H 140/101 H 135/97 Blood Pressure Mean 121 114 109 Pulse Oximetry 98 97 92 Oxygen Delivery Method Sepsis Recent Fever Within 48 Hours Sepsis New/Unexplained Change in Mental Status Sepsis Action Taken by Nursing 12/17/20 10:30 12/17/20 11:00 Temperature Temperature Source Pulse Rate 140 H 137 H Pulse Rate from SpO2 Sensor 137 H 137 H Pulse Rhythm Pulse Strength Respiratory Rate 16 23 Respiratory Effort / Characteristics Respiratory Depth Respiratory Pattern Blood Pressure 140/100 129/94 Blood Pressure Mean 113 105 Pulse Oximetry 96 91 Oxygen Delivery Method Sepsis Recent Fever Within 48 Hours Sepsis New/Unexplained Change in Mental Status Sepsis Action Taken by Nursing VITALS: Vitals are noted on the nurse's note and reviewed by myself. GENERAL: This is a 40-year-old female, anxious appearing, tearful. SKIN: The skin was without rashes. EARS: External auditory canals clear, tympanic membranes pearly castro without erythema or effusion bilaterally. EYES: Pupils equal round and reactive to light and accommodation. No scleral icterus. MOUTH: Mucous membranes somewhat dry. NECK: Supple without nuchal rigidity. No lymphadenopathy. HEART: Tachycardic, regular rhythm without murmurs gallops or rubs. LUNGS: Clear to auscultation bilaterally without wheezes, rales or rhonchi. ABDOMEN: Positive bowel sounds x 4. Tenderness to palpation in the epigastrium and left upper quadrant. NEURO: Patient was alert and oriented to person place and time. Course Consultations Consultation #1: [facility] Administered Medications Folic Acid (Folic Acid 1 Mg Tab) 1 mg PO [facility] Stop: 01/16/21 13:59 Last Admin: 12/17/20 15:10 Dose: 1 mg Documented by: [id number] Hydromorphone HCl (Hydromorphone Inj 0.5 Mg/0.5 Ml Syr) 0.5 mg IV Q4H PRN PRN Reason: Pain Stop: 12/31/20 13:24 Last Admin: 12/17/20 13:39 Dose: 0.5 mg Documented by: [id number] Promethazine HCl 12.5 mg/ (Sodium Chloride) 50.5 mls @ 202 mls/hr IV Q6H PRN PRN Reason: Nausea And Vomiting Stop: 01/16/21 13:11 Last Admin: 12/17/20 15:22 Dose: 202 mls/hr Documented by: [id number] Potassium Chloride 20 meq/ (Lactated Ringer's) 1,010 mls @ 150 mls/hr IV .Q6H44M [facility] Stop: 01/16/21 13:44 Last Admin: 12/17/20 14:20 Dose: 150 mls/hr Documented by: [id number] Lorazepam (Ativan) 1 mg in 2 mls @ 2 mls/min IV UD PRN; Protocol PRN Reason: EtOH Withdrawl AWSS Score 6,7 Stop: 01/16/21 13:24 Last Admin: 12/17/20 15:09 Dose: 2 mls/min Documented by: [id number] Pantoprazole Sodium 40 mg/ (Syringe) 10 mls @ 5 mls/min IV DAILY@1100 [facility] Stop: 01/16/21 13:44 Last Admin: 12/17/20 15:12 Dose: 5 mls/min Documented by: [id number] Sucralfate (Sucralfate 1 Gm Tab) 1 gm PO QID [facility] Stop: 01/16/21 13:59 Last Admin: 12/17/20 15:10 Dose: 1 gm Documented by: [id number] Thiamine HCl (Thiamine Hcl 100 Mg Tab) 100 mg PO QAM [facility] Stop: 01/16/21 13:59 Last Admin: 12/17/20 15:10 Dose: 100 mg Documented by: [id number] Discontinued Medications Gabapentin (Gabapentin 600 Mg Tab) 1,200 mg PO ONE ONE Stop: 12/17/20 14:01 Last Admin: 12/17/20 15:10 Dose: Not Given Documented by: [id number] Hydromorphone HCl (Hydromorphone Inj 0.5 Mg/0.5 Ml Syr) 0.5 mg IV NOW STA Stop: 12/17/20 08:47 Last Admin: 12/17/20 09:07 Dose: 0.5 mg Documented by: [id number] Hydromorphone HCl (Hydromorphone Inj 0.5 Mg/0.5 Ml Syr) 0.5 mg IV NOW STA Stop: 12/17/20 11:01 Last Admin: 12/17/20 11:05 Dose: 0.5 mg Documented by: [id number] Multivitamins 10 ml/ Thiamine HCl 100 mg/ Folic Acid 1 mg/Sodium Chloride 1,011.2 mls @ 1,011.2 mls/hr IV .Q1H ONE Stop: 12/17/20 09:45 Last Infusion: 12/17/20 10:08 Dose: 0 mls/hr Documented by: [id number] Admin: 12/17/20 09:08 Dose: 1,011.2 mls/hr Documented by: [id number] Potassium Chloride (K Derek / Wtr) 10 meq in 100 mls @ 100 mls/hr IV ONE ONE Stop: 12/17/20 10:26 Last Infusion: 12/17/20 12:36 Dose: 0 mls/hr Documented by: [id number] Infusion: 12/17/20 12:19 Dose: 100 mls/hr Documented by: [id number] Infusion: 12/17/20 11:24 Dose: 0 mls/hr Documented by: [id number] Admin: 12/17/20 10:32 Dose: 100 mls/hr Documented by: [id number] Lorazepam (Ativan) 1 mg in 2 mls @ 2 mls/min IV NOW STA Stop: 12/17/20 10:00 Last Admin: 12/17/20 10:32 Dose: 2 mls/min Documented by: [id number] Sodium Chloride (Nss 1000ml) 1,000 mls @ 999 mls/hr IV .Q1H1M ONE Stop: 12/17/20 12:10 Last Admin: 12/17/20 12:20 Dose: 999 mls/hr Documented by: [id number] Lorazepam (Lorazepam 2 Mg/4 Ml Vial) Confirm Administered Dose 2 mg .ROUTE .STK- MED ONE Stop: 12/17/20 08:44 Last Admin: 12/17/20 08:47 Dose: 1 mg Documented by: [id number] Potassium Chloride (Potassium Chloride Crtab 20 Meq Tabcr) 40 meq PO ONE ONE Stop: 12/17/20 14:01 Last Admin: 12/17/20 15:09 Dose: 40 meq Documented by: [id number] Medical Decision Making Differential Diagnosis Appendicitis, ovarian cyst, ovarian torsion, ectopic , TOA, PID, infections, diverticulitis, UTI, obstruction, mesenteric ischemia, aortic pathology, inflammatory bowel disease, renal colic, PUD, pancreatitis, biliary pathology, hernia, volvulus, constipation, as well as other pathologies. Home Medications Current Medication List: was personally reviewed by me Laboratory Data Attestation: I reviewed the patient's lab results. Result diagrams: 12/17/20 08:44 12/17/20 08:44 Lab Results 12/17/20 12/17/20 12/17/20 Range/Units 08:44 08:44 08:44 WBC 10.35 (4.8-10.8) K/uL RBC 5.04 (4.2-5.4) M/uL Hgb 16.7 H (12.0-16.0) g/dL Hct 47.1 H (37-47) % MCV 93.5 (80-100) fL MCH 33.1 (25-34) pg MCHC 35.5 (32-36) g/dL RDW Std Deviation 41.7 (36.4-46.3) fL RDW Coeff of Hanna 12.3 (11.5-14.5) % Plt Count 523 H (130-400) K/uL MPV 9.6 (7.4-10.4) fL Immature Gran % (Auto) 0.1 % Neut % (Auto) 87.4 % Lymph % (Auto) 7.0 % [place] % (Auto) 5.2 % Eos % (Auto) 0.0 % Baso % (Auto) 0.3 % Neut # (Auto) 9.05 H (1.4-6.5) K/uL Lymph # (Auto) 0.72 L (1.2-3.4) K/uL [place] # (Auto) 0.54 (0.11-0.59) K/uL Eos # (Auto) 0.00 (0-0.5) K/uL Baso # (Auto) 0.03 (0-0.2) K/uL Immature Gran # (Auto) 0.01 (0.00-0.02) K/uL PT 11.1 (9.0-12.0) Seconds INR 1.1 (0.9-1.1) Sodium 139 (136-145) mmol/L Potassium 2.7 L (3.5-5.1) mmol/L Chloride 93 L (98-107) mmol/L Carbon Dioxide 27 (21-32) mmol/L Anion Gap 19.0 H (3-11) BUN 10 (7-18) mg/dl Creatinine 1.07 (0.6-1.2) mg/dl Est Cr Clr Drug Dosing 57.2 ml/min Est GFR ( Amer) 74.7 Est GFR (Non-Af Amer) 64.4 BUN/Creatinine Ratio 9.3 L (10-20) Glucose 165 H (70-99) mg/dl Calcium 9.7 (8.5-10.1) mg/dl Magnesium (1.8-2.4) mg/dl Total Bilirubin 1.5 H (0.2-1) mg/dl AST 122 H (15-37) U/L ALT 47 (12-78) U/L Alkaline Phosphatase 167 H (45-117) U/L Troponin I 0.033 (0-0.045) ng/ml Total Protein 9.1 H (6.4-8.2) gm/dl Albumin 4.1 (3.4-5.0) gm/dl Globulin 5.0 H (2.5-4.0) gm/dl Albumin/Globulin Ratio 0.8 L (0.9-2) Lipase 67 L (73-393) U/L Ethyl Alcohol mg/dL (0-3) mg/dl COVID-19 Eval Order SARS-CoV-2, RNA, NAAT (NEGATIVE) 12/17/20 12/17/20 12/17/20 Range/Units 08:44 08:54 11:00 WBC (4.8-10.8) K/uL RBC (4.2-5.4) M/uL Hgb (12.0-16.0) g/dL Hct (37-47) % MCV (80-100) fL MCH (25-34) pg MCHC (32-36) g/dL RDW Std Deviation (36.4-46.3) fL RDW Coeff of Hanna (11.5-14.5) % Plt Count (130-400) K/uL MPV (7.4-10.4) fL Immature Gran % (Auto) % Neut % (Auto) % Lymph % (Auto) % [place] % (Auto) % Eos % (Auto) % Baso % (Auto) % Neut # (Auto) (1.4-6.5) K/uL Lymph # (Auto) (1.2-3.4) K/uL [place] # (Auto) (0.11-0.59) K/uL Eos # (Auto) (0-0.5) K/uL Baso # (Auto) (0-0.2) K/uL Immature Gran # (Auto) (0.00-0.02) K/uL PT (9.0-12.0) Seconds INR (0.9-1.1) Sodium (136-145) mmol/L Potassium (3.5-5.1) mmol/L Chloride (98-107) mmol/L Carbon Dioxide (21-32) mmol/L Anion Gap (3-11) BUN (7-18) mg/dl Creatinine (0.6-1.2) mg/dl Est Cr Clr Drug Dosing ml/min Est GFR ( Amer) Est GFR (Non-Af Amer) BUN/Creatinine Ratio (10-20) Glucose (70-99) mg/dl Calcium (8.5-10.1) mg/dl Magnesium 1.8 (1.8-2.4) mg/dl Total Bilirubin (0.2-1) mg/dl AST (15-37) U/L ALT (12-78) U/L Alkaline Phosphatase (45-117) U/L Troponin I (0-0.045) ng/ml Total Protein (6.4-8.2) gm/dl Albumin (3.4-5.0) gm/dl Globulin (2.5-4.0) gm/dl Albumin/Globulin Ratio (0.9-2) Lipase (73-393) U/L Ethyl Alcohol mg/dL 82.6 H (0-3) mg/dl COVID-19 Eval Order Covid19 [facility] SARS-CoV-2, RNA, NAAT (NEGATIVE) 12/17/20 Range/Units 11:00 WBC (4.8-10.8) K/uL RBC (4.2-5.4) M/uL Hgb (12.0-16.0) g/dL Hct (37-47) % MCV (80-100) fL MCH (25-34) pg MCHC (32-36) g/dL RDW Std Deviation (36.4-46.3) fL RDW Coeff of Hanna (11.5-14.5) % Plt Count (130-400) K/uL MPV (7.4-10.4) fL Immature Gran % (Auto) % Neut % (Auto) % Lymph % (Auto) % [place] % (Auto) % Eos % (Auto) % Baso % (Auto) % Neut # (Auto) (1.4-6.5) K/uL Lymph # (Auto) (1.2-3.4) K/uL [place] # (Auto) (0.11-0.59) K/uL Eos # (Auto) (0-0.5) K/uL Baso # (Auto) (0-0.2) K/uL Immature Gran # (Auto) (0.00-0.02) K/uL PT (9.0-12.0) Seconds INR (0.9-1.1) Sodium (136-145) mmol/L Potassium (3.5-5.1) mmol/L Chloride (98-107) mmol/L Carbon Dioxide (21-32) mmol/L Anion Gap (3-11) BUN (7-18) mg/dl Creatinine (0.6-1.2) mg/dl Est Cr Clr Drug Dosing ml/min Est GFR ( Amer) Est GFR (Non-Af Amer) BUN/Creatinine Ratio (10-20) Glucose (70-99) mg/dl Calcium (8.5-10.1) mg/dl Magnesium (1.8-2.4) mg/dl Total Bilirubin (0.2-1) mg/dl AST (15-37) U/L ALT (12-78) U/L Alkaline Phosphatase (45-117) U/L Troponin I (0-0.045) ng/ml Total Protein (6.4-8.2) gm/dl Albumin (3.4-5.0) gm/dl Globulin (2.5-4.0) gm/dl Albumin/Globulin Ratio (0.9-2) Lipase (73-393) U/L Ethyl Alcohol mg/dL (0-3) mg/dl COVID-19 Eval Order SARS-CoV-2, RNA, NAAT NEGATIVE (NEGATIVE) Imaging Data Attestation: I personally reviewed and interpreted this imaging study as fol lows: Radiologist's Impression: US liver CLINICAL HISTORY: hx pancreatic pseudocyst/necrosis COMPARISON STUDY: CT scan dated 12/04/2020 FINDINGS: The liver is enlarged and of increased echogenicity consistent with hepatic steatosis. The gallbladder is surgically absent. There is no right-sided hydronephrosis. There is no ductal dilatation. The common bile duct measures 5 mm. Evaluation the pancreas is somewhat limited. No pancreatic masses are delineated. There is equivocal visualization of the previously described small complex lesion adjacent the pancreatic tail IMPRESSION: 1. Equivocal visualization of a 2 cm complex lesion anterior to the pancreatic tail. This likely corresponds to the rim-enhancing peripancreatic fluid collection described on the prior CT 2. Hepatic steatosis 3. Surgically absent gallbladder 4. No evidence of ductal dilatation XR chest 1V portable CLINICAL HISTORY: Atypical chest pain COMPARISON STUDY: 10/07/2020 FINDINGS: The cardiac and mediastinal contours are normal. There is no evidence of focal pulmonary consolidation. There is no evidence of failure. No pleural effusions are visualized.[ IMPRESSION: No active disease in the chest. ECG Data Attestation: I personally reviewed and interpreted this ECG as follows: Indication: + abdominal pain Rate (beats per minute): 113 Rhythm: + sinus tachycardia ECG Intervals/blocks: + Normal QRS ECG ST segments: + Nonspecific ST abnormalities Change: no significant change Additional Comments: Likely rate related ST changes, seen on prior EKGs. MDM Narrative Continuous diagnostic cardiac sonographer: Order was placed for continuous diagnostic cardiac sonographer. Patient was placed on the diagnostic cardiac sonographer. Patient was noted to be in sinus tachycardia at an initial rate of 140 bpm. The patient is a 40-year-old female who presents today complaining of abdominal pain, chest pain and shakiness. Patient is an alcoholic and has had issues with pancreatitis over the past several months. She has had several visits and admissions here for the same symptoms. Labs revealed no leukocytosis or anemia. Patient is hypokalemic with potassium of 2.7. She has an anion gap of 19. LFTs are elevated consistent with prior. Lipase is not elevated. Ultrasound shows pancreatic pseudocyst seen on prior imaging, no acute findings. Patient treated with multiple doses of pain medications, banana bag, K rider and Ativan. I suspect that her symptoms are mostly related to alcohol withdrawal at this time. Patient cannot be discharged home in this state. The case [facility], who agreed to evaluate the patient for further care. Impression & Plan Epigastric abdominal pain, Pancreatic pseudocyst, Acute hypokalemia, Alcohol withdrawal Discharge Plan Visit Data Chief Complaint: Abdominal Pain Stated Complaint: FAST HEART RATE ED Provider: Lonnie Lee ED Midlevel Provider: Ines Kulkarni Discharge Problem: Epigastric abdominal pain, Pancreatic pseudocyst, Acute hypokalemia, Alcohol withdrawal Patient Disposition: Admitted As Inpatient Discharge Instructions Interventions: ED Discharge Assessment Last Done: 12/17/20 12:46 Discharge Problem: Alcohol withdrawal Qualifiers: Complication of substance-induced condition: uncomplicated Qualified Code(s): F10.230 - Alcohol dependence with withdrawal, uncomplicated
[2020-12-17] MEDS ORDERED: SODIUM CHLORIDE 0.9% 1000ML 1,000 ML IV ONE (11:10)
--- NOTE | 2020-12-17 11:57 | Ultrasound Report ---
US liver CLINICAL HISTORY: hx pancreatic pseudocyst/necrosis COMPARISON STUDY: CT scan dated 12/04/2020 FINDINGS: The liver is enlarged and of increased echogenicity consistent with hepatic steatosis. The gallbladder is surgically absent. There is no right-sided hydronephrosis. There is no ductal dilatation. The common bile duct measures 5 mm. Evaluation the pancreas is somewhat limited. No pancreatic masses are delineated. There is equivocal visualization of the previously described small complex lesion adjacent the pancreatic tail IMPRESSION: 1. Equivocal visualization of a 2 cm complex lesion anterior to the pancreatic tail. This likely elizabeth esponds to the rim-enhancing peripancreatic fluid collection described on the prior CT 2. Hepatic steatosis 3. Surgically absent gallbladder 4. No evidence of ductal dilatation ACT 112: Negative or not required by law. Electronically signed by: Andrade Singh M.D. 12/17/2020 11:55 AM
[2020-12-17 12:24] LABS: INR 1.1 (0.9-1.1); Prothrombin Time 11.1 Seconds (9.0-12.0)
--- NOTE | 2020-12-17 12:42 | History & Physical Report ---
Date of Service December 17, 2020 Assessment & Plan (1) Alcohol abuse: (2) Pancreatitis: -Admit to telemetry -Patient presenting from home with reports of epigastric pain and vomiting -History of alcohol abuse, chronic/recurrent pancreatitis, pancreatic pseudocyst s/p AXIOS stent placement and removal on 11/30/20 -Started drinking again shortly after last hospital discharge, drinking one fifth of vodka every 2 days. Last drink was last evening -In the ED, RUQ US shows similar peripancreatic fluid collection noted on CT ABD/pelvis 12/04/2020 -Likely alcohol gastritis /exacerbation of chronic alcohol pancreatitis -LFT elevation chronic/at patient's recent baseline -Continue supportive care with IVF, IV PPI, pain and nausea control -Alcohol withdrawal protocol with gabapentin -Patient reports she is actively working with [facility] Case management for rehab referrals (3) Acute hypokalemia: -K+ 2.7 -Replace, follow electrolytes (4) DVT prophylaxis: -SCDs, ambulate History of Present Illness Chief Complaint: Abdominal pain, vomiting Primary Care Provider: Marianela Arroyo MD 40-year-old female with PMH chronic alcohol abuse, chronic/recurrent pancreatitis with history of pseudocyst, history of AXIOS stent placement s/p removal for pancreatic drainage, and other problems listed below who presents to the ED for evaluation of abdominal pain and vomiting. Patient recently admitted to [facility] 12/04 through 12/06 for ETOH gastritis and pain after AXIOS stent removal. Patient reports she started drinking again the following day after being discharged from the hospital. Reports drinking a fifth of vodka every 2 days. Last drink was last evening. Patient reports worsening epigastric pain and vomiting for the past 3 days. Denies fevers and chills. No hematemesis or coffee-ground emesis. Reports some mild diarrhea yesterday. Denies bright red bleeding per rectum or dark tarry stools. No chest pain or shortness of breath. Denies lightheadedness and dizziness. No urinary symptoms. In the ED, labs show K+ 2.7, mildly elevated LFTs, alcohol level 82. RUQ US shows similar peripancreatic fluid collection noted on CT ABD/pelvis 12/04/2020. Patient received IV Dilaudid, IV lorazepam, banana bag, IV potassium replacement, IVF. Allergies Allergy/AdvReac Type Severity Reaction Status Date / Time tramadol Allergy Severe Seizure Verified 12/17/20 09:00 gabapentin Allergy Intermediate Hallucinati Verified 12/17/20 09:00 ng ketorolac [From Toradol] Allergy Mild shaky, Verified 12/17/20 09:00 dizzy, uneasy feeling Home Medications Medication Instructions Recorded Confirmed Type naltrexone 50 mg PO QAM 11/21/20 12/17/20 History buspirone 5 mg PO TID 12/17/20 12/17/20 History chlordiazepoxide HCl 25 mg PO UD 12/17/20 12/17/20 History pantoprazole 40 mg PO DAILY 12/17/20 12/17/20 History sucralfate 1 g PO QID 12/17/20 12/17/20 History Past Med/Surg History Medical History Alcohol abuse Anxiety Depression History of COVID-19 diagnosed 10/09/[address] [facility]--asymptomatic at first then developed cough, sore throat, low grade fever for 1-2 days--not hospitalized History of kidney stones History of narcotic addiction Hypertension Migraine Nonischemic cardiomyopathy Pancreatic pseudocyst 08/2020 - AXIOS stent placement for pancreatic drainage, removed 11/30/20 Pancreatitis Surgical History H/O esophagogastroduodenoscopy Endoscopic US hx of endoscopic necrosectomy 08/2020 History of colposcopy History of dental surgery History of laparoscopic cholecystectomy History of tooth extraction History of wisdom tooth extraction Family History Grandfather (Paternal) Diabetes Grandmother (Maternal) Diabetes Mother Family history of diabetes mellitus Other No family history of adverse response to anesthesia Social History (Updated 12/17/20 @ 12:52 by HEIKE Velasco) Smoking Status: Never smoker Second Hand Exposure: No; Do You Dip or Chew Tobacco: No; Tobacco Cessation Education Requested by Patient: No Hx Alcohol Use: Yes Alcohol type: wine and hard liquor Alcohol Intake Frequency: 4 or More x per/Week Hx Substance Use: No Preferred Language: Lithuanian Communication Ability: Effective Motor Vehicle Representative Required: No Beliefs That Will Affect Care: None marital status: Current Living Situation: Spouse Current Living Situation Comment: Lives with and 5 kids How many Children do You have: 5 Other Information That Helps Us Care for You: No Feels Safe at Home: Yes Safety Concerns: Feels Safe At This Time Assistive Devices: None Review of Systems Review of Systems: ROS per HPI, all other systems reviewed and negative Physical Exam Constitutional: WD/WN, vitals as above Eyes: PERRL, conjunctivae normal, anicteric sclerae ENMT: external ear and nose normal, oropharynx normal Respiratory: normal respiratory effort, lungs clear to auscultation Cardiovascular: Rate/Rhythm: regular rhythm and + tachycardic Vessels: normal peripheral pulses Extremities: no edema Gastrointestinal (Abdomen): Inspection/Auscultation: normal bowel sounds Percussion/Palpation: + abdomen tender (Epigastric/RUQ) and abdomen soft; no hepatosplenomegaly Musculoskeletal: no cyanosis or clubbing, extremities motor strength 5/5 Skin: no rashes, warm and dry Neurologic: PERRL, EOMI, accommodation nl, no face palsy, no dysarthria Psychiatric: A+Ox3, euthymic affect Results & Data Results & Data ([facility]) Vital Signs (Past 12 Hours) Vital Signs Temp Pulse Resp BP Pulse Ox 12/17/20 11:00 137 H 23 129/94 91 12/17/20 10:30 140 H 16 140/100 96 12/17/20 10:00 132 H 18 135/97 92 12/17/20 09:30 117 H 13 140/101 H 97 12/17/20 09:11 120 H 12 143/111 H 98 12/17/20 08:44 146 H 20 125/108 H 98 12/17/20 08:39 143 H 22 12/17/20 08:20 36.6 C 77 26 H 125/87 99 Laboratory Results Short CBC 12/17/20 Range/Units 08:44 WBC 10.35 (4.8-10.8) K/uL Hgb 16.7 H (12.0-16.0) g/dL Hct 47.1 H (37-47) % Plt Count 523 H (130-400) K/uL BMP 12/17/20 08:44 Sodium 139 Potassium 2.7 L Chloride 93 L Carbon Dioxide 27 BUN 10 Creatinine 1.07 Glucose 165 H Calcium 9.7 Cardiac Enzymes 12/17/20 Range/Units 08:44 Troponin I 0.033 (0-0.045) ng/ml Liver Function 12/17/20 Range/Units 08:44 Total Bilirubin 1.5 H (0.2-1) mg/dl AST 122 H (15-37) U/L ALT 47 (12-78) U/L Alkaline Phosphatase 167 H (45-117) U/L Albumin 4.1 (3.4-5.0) gm/dl Diagnostic Findings CXR IMPRESSION: No active disease in the chest. RUQ US IMPRESSION: 1. Equivocal visualization of a 2 cm complex lesion anterior to the pancreatic tail. This likely corresponds to the rim-enhancing peripancreatic fluid colle ction described on the prior CT 2. Hepatic steatosis 3. Surgically absent gallbladder 4. No evidence of ductal dilatation Code Status & VTE Plan VTE Prophylaxis Plan VTE Prophylaxis will be ordered: Yes Supervising Physician Co-Signing Physician Notes Alcohol intoxication/concern for withdrawal Recurrent pancreatitis Elevated LFTs History of recurrent pancreatitis History of alcohol abuse History of pseudocyst/necrosis Status post axios stent placement; removed on November 20 History of COVID-19 History of hypertension History of nonischemic History of migraine History of anxiety/depression Presents with epigastric pain that has been going on since yesterday. Patient describes the pain as dull, 8 of 10 and nonradiating does report nausea/vomiting. Denies any hematemesis. Denies any chest pain or shortness of breath but does endorse palpitations and due to anxiety. Reports she has been drinking 1/5 of vodka bottle. Strength was last night. She is interested in rehab and have been working with a counselor. N.p.o. except meds for now patient on maintenance IV fluids patient on CIWA protocol and gabapentin regimen. Trend daily LFTs. I performed a history and physical examination of the patient on 12/17/20, includ ing specifically H&P. I have discussed the patient's management with the advanced practitioner. Please refer to the Linda Culp note for the documented findings and plan of care.
[2020-12-17] MEDS ORDERED: ACETAMINOPHEN 325 MG TAB PO PRN (13:25)
[2020-12-17] MEDS ORDERED: LORazepam 1 MG/2 ML VIAL IV PRN (13:25)
[2020-12-17] MEDS ORDERED: GABAPENTIN 1200MG ALCOHOL WITHDRAWAL LOAD PO STA (13:25)
[2020-12-17] MEDS ORDERED: ATIVAN IV ALCOHOL WITHDRAWL IV PRN (13:25)
[2020-12-17] MEDS ORDERED: LORazepam 3 MG/6 ML VIAL IV PRN (13:25)
[2020-12-17] MEDS: HYDROmorphone INJ 0.5 MG/0.5 ML SYR IV PRN ×3 (13:39→21:40)
[2020-12-17] MEDS ORDERED: GABAPENTIN 600 MG TAB PO ONE (14:00)
[2020-12-17] MEDS ORDERED: POTASSIUM CHLORIDE CRTAB 20 MEQ TABCR PO ONE (14:00)
[2020-12-17] MEDS: POTASSIUM CHLORIDE 20 MEQ in LACTATED RINGER'S 1,000 ML IV SCH ×2 (14:20→21:54)
--- NOTE | 2020-12-17 14:21 | Electrocardiogram Report ---
Test Reason : Blood Pressure : / mmHG Vent. Rate : 125 BPM Atrial Rate : 125 BPM P-R Int : 130 ms QRS Dur : 082 ms QT Int : 340 ms P-R-T Axes : 044 054 046 degrees QTc Int : 490 ms Sinus tachycardia Nonspecific ST abnormality Abnormal ECG When compared with ECG of 06-DEC-2020 07:00, Vent. rate has increased BY [address] now depressed in Inferior leads ST now depressed in Lateral leads Confirmed by Carlos Alberto Carrasco ([id number]) on 12/17/2020 2:21:21 PM Referred By: REFERRED SELF Confirmed By:Carlos Alberto Carrasco
--- NOTE | 2020-12-17 14:28 | Electrocardiogram Report ---
Test Reason : Blood Pressure : / mmHG Vent. Rate : 113 BPM Atrial Rate : 113 BPM P-R Int : 122 ms QRS Dur : 072 ms QT Int : 364 ms P-R-T Axes : 066 067 069 degrees QTc Int : 499 ms Sinus tachycardia Abnormal ECG When compared with ECG of 17-DEC-2020 08:26, (unconfirmed) ST no longer depressed in Inferior leads T wave inversion now evident in Anterolateral leads Confirmed by Carlos Alberto Carrasco ([id number]) on 12/17/2020 2:27:39 PM Referred By: REFERRED SELF Confirmed By:Carlos Alberto Carrasco
[2020-12-17] MEDS: SUCRALFATE 1 GM TAB PO SCH ×3 (15:10→19:34)
[2020-12-17] MEDS: THIAMINE HCL 100 MG TAB PO SCH (15:10)
[2020-12-17] MEDS: FOLIC ACID 1 MG TAB PO SCH (15:10)
[2020-12-17] MEDS: PANTOprazole 40 MG in SYRINGE 0 ML IV SCH (15:12)
[2020-12-17] MEDS: PROMETHAZINE HCL 12.5 MG in SODIUM CHLORIDE 0.9% 50 ML IV PRN ×2 (15:22→21:41)
[2020-12-17] MEDS: busPIRone 5 MG TAB PO SCH ×2 (15:46→19:34)
[2020-12-17 17:06] LABS: BUN Creatinine Ratio 9.8 (10-20); Calcium 8.1 mg/dl (8.5-10.1); Creatinine Clr Calc Pharmacy 62.5 ml/min; Est GFR (Non-African American) 71.6
[2020-12-17] MEDS: LORazepam 2 MG/4 ML VIAL IV PRN (19:33)
[2020-12-17] MEDS ORDERED: GABAPENTIN 600 MG TAB PO SCH (20:00)
[2020-12-18] MEDS: HYDROmorphone INJ 0.5 MG/0.5 ML SYR IV PRN ×6 (02:41→23:48)
[2020-12-18] MEDS: POTASSIUM CHLORIDE 20 MEQ in LACTATED RINGER'S 1,000 ML IV SCH ×3 (04:34→19:23)
[2020-12-18] MEDS: LORazepam 2 MG/4 ML VIAL IV PRN ×6 (04:34→23:48)
[2020-12-18 06:35] LABS: Hematocrit (blood only) 36.6 % (37-47); Hemoglobin 12.1 g/dL (12.0-16.0); Mean Corpuscular Hemoglobin 32.4 pg (25-34); Mean Corpuscular Hgb Conc 33.1 g/dL (32-36); Mean Corpuscular Volume 98.1 fL (80-100); Mean Platelet Volume 9.2 fL (7.4-10.4); Platelet Count 289 K/uL (130-400); RDW Coefficient of Variation 12.3 % (11.5-14.5); RDW Standard Deviation 44.1 fL (36.4-46.3); Red Blood Count 3.73 M/uL (4.2-5.4); White Blood Count 4.42 K/uL (4.8-10.8)
[2020-12-18 07:02] LABS: Albumin Globulin Ratio 0.8 (0.9-2); Albumin Level 2.9 gm/dl (3.4-5.0); BUN Creatinine Ratio 9.2 (10-20); Bilirubin,Total 2.2 mg/dl (0.2-1); Creatinine Clr Calc Pharmacy 92.8 ml/min; Est GFR (African American) 127.2; Est GFR (Non-African American) 109.7; Globulin 3.6 gm/dl (2.5-4.0); Potassium 3.3 mmol/L (3.5-5.1); Total Protein 6.5 gm/dl (6.4-8.2)
[2020-12-18] MEDS: SUCRALFATE 1 GM TAB PO SCH ×4 (08:52→19:25)
[2020-12-18] MEDS: busPIRone 5 MG TAB PO SCH ×3 (08:52→19:24)
[2020-12-18] MEDS: FOLIC ACID 1 MG TAB PO SCH (08:52)
[2020-12-18] MEDS: THIAMINE HCL 100 MG TAB PO SCH (08:53)
[2020-12-18] MEDS: PROMETHAZINE HCL 12.5 MG in SODIUM CHLORIDE 0.9% 50 ML IV PRN (09:02)
[2020-12-18] MEDS ORDERED: GABAPENTIN 600 MG TAB PO SCH (10:00)
[2020-12-18] MEDS: PANTOprazole 40 MG in SYRINGE 0 ML IV SCH (11:10)
--- NOTE | 2020-12-18 11:19 | Electrocardiogram Report ---
Test Reason : Blood Pressure : / mmHG Vent. Rate : 082 BPM Atrial Rate : 082 BPM P-R Int : 114 ms QRS Dur : 082 ms QT Int : 392 ms P-R-T Axes : 070 061 068 degrees QTc Int : 457 ms Normal sinus rhythm Normal ECG When compared with ECG of 17-DEC-2020 13:21, T wave inversion no longer evident in Inferior leads T wave inversion no longer evident in Anterolateral leads Confirmed by Carlos Alberto Carrasco ([id number]) on 12/18/2020 11:19:31 AM Referred By: REFERRED SELF Confirmed By:Carlos Alberto Carrasco
--- NOTE | 2020-12-18 11:50 | Hospitalist Progress Note ---
Date of Service December 18, 2020 Assessment & Plan (1) Alcohol abuse: (2) Pancreatitis: Patient is 40-year-old female with past medical history as stated below presented with epigastric pain likely secondary to alcohol gastritis or worsening of her chronic pancreatitis. Patient is actively drinking vodka. Last drink was 1 day prior to admission. Alcohol intoxication/concern for withdrawal Recurrent pancreatitis Elevated LFTs History of recurrent pancreatitis History of alcohol abuse History of pseudocyst/necrosis Status post axios stent placement; removed on November 20 History of COVID-19 History of hypertension History of nonischemic History of migraine History of anxiety/depression Doing okay this morning. Have been tolerating clear liquid diet. Continue with maintenance IV fluids. Continue with CIWA protocol. LFTs are improving. Continue with IV PPI/antiemetic and Dilaudid for pain control. RUQ US shows similar peripancreatic fluid collection noted on CT ABD/pelvis 12/04/2020 Likely alcohol gastritis /exacerbation of chronic alcohol pancreatitis Patient reports she is actively working with [facility] Case management for rehab referrals. (3) Acute hypokalemia: Potassium at 3.3 today. Diarrhea is resolved. Transition to maintenance IV fluids NSS. (4) DVT prophylaxis: -SCDs, ambulate Admission and Anticipated Discharge Date Admission Date: December 17, 2020 Subjective Doing okay this morning. Pain is controlled but still continues to have 7 out of 10 epigastric discomfort. No further episodes of nausea or vomiting. No further episodes of diarrhea. Reports mild headache. Rest of the review of system is negative. Review of Systems Review of Systems: All systems reviewed & are unremarkable except as noted in HPI & below Physical Exam Physical Exam: General: A&Ox3 HENT: NCAT, MMM, EOMI Eyes: PERRLA Neck: Supple, normal range of motion CVS: normal rate and rhythm Resp: b/l clear breath sounds Abdomen: Soft, mild epigastric discomfort Extremities: No c/c/e Neuro: face symmetric, strength grossly equal, no focal deficit Skin: warm and dr MSK: no joint swelling/erythema Results & Data Results & Data ([facility]) Vital Signs (Past 12 Hours) Vital Signs Temp Pulse Pulse Resp BP BP Pulse Ox 12/18/20 11:05 36.5 C 99 H 19 148/104 H 98 12/18/20 07:11 36.6 C 108 H 18 155/117 H 94 12/18/20 03:00 36.8 C 94 H 18 156/100 H 97
[2020-12-19] MEDS: POTASSIUM CHLORIDE 20 MEQ in LACTATED RINGER'S 1,000 ML IV SCH (02:15)
[2020-12-19 03:40] VITALS: TEMP 98.4
[2020-12-19] MEDS: HYDROmorphone INJ 0.5 MG/0.5 ML SYR IV PRN (03:40)
[2020-12-19] MEDS: LORazepam 2 MG/4 ML VIAL IV PRN (03:41)
[2020-12-19 07:36] VITALS: O2SAT 99
[2020-12-19 08:58] VITALS: BP 147/112; PULSE 90
--- NOTE | 2020-12-19 09:02 | Discharge Summary ---
Date of Service December 19, 2020 Admission HPI Per Admitting Provider 40-year-old female with PMH chronic alcohol abuse, chronic/recurrent pancreatitis with history of pseudocyst, history of AXIOS stent placement s/p removal for pancreatic drainage, and other problems listed below who presents to the ED for evaluation of abdominal pain and vomiting. Patient recently admitted to [facility] 12/04 through 12/06 for ETOH gastritis and pain after AXIOS stent removal. Patient reports she started drinking again the following day after being discharged from the hospital. Reports drinking a fifth of vodka every 2 days. Last drink was last evening. Patient reports worsening epigastric pain and vomiting for the past 3 days. Denies fevers and chills. No hematemesis or coffee-ground emesis. Reports some mild diarrhea yesterday. Denies bright red bleeding per rectum or dark tarry stools. No chest pain or shortness of breath. Denies lightheadedness and dizziness. No urinary symptoms. In the ED, labs show K+ 2.7, mildly elevated LFTs, alcohol level 82. RUQ US shows similar peripancreatic fluid collection noted on CT ABD/pelvis 12/04/2020. Patient received IV Dilaudid, IV lorazepam, banana bag, IV potassium replacement, IVF. Admission Exam Per Admitting Provider Constitutional: WD/WN, vitals as above Eyes: PERRL, conjunctivae normal, anicteric sclerae ENMT: external ear and nose normal, oropharynx normal Respiratory: normal respiratory effort, lungs clear to auscultation Cardiovascular: Rate/Rhythm: regular rhythm and + tachycardic Vessels: normal peripheral pulses Extremities: no edema Gastrointestinal (Abdomen): Inspection/Auscultation: normal bowel sounds Percussion/Palpation: + abdomen tender (Epigastric/RUQ) and abdomen soft; no hepatosplenomegaly Musculoskeletal: no cyanosis or clubbing, extremities motor strength 5/5 Skin: no rashes, warm and dry Neurologic: PERRL, EOMI, accommodation nl, no face palsy, no dysarthria Psychiatric: A+Ox3, euthymic affect Principal Diagnosis (1) Alcohol abuse: (2) Pancreatitis: (3) Acute hypokalemia: Discharge Exam ROS-No Headache, No Visual Changes, No Nausea, No Vomiting, No Fever, No Chills, No Neck Pain or Stiffness, No Chest Pain, No Palpitations, No SOB, No YUNG, No Cough, No Sputum, No Wheezing, Mild Abdominal Pain, No Diarrhea, No Hematemesis, No Hemoptysis, No Unexpected Weight Loss, No Flank pain, No Melena, No Hematochezia, No Frequency, No Urgency, No Burning, No Hematuria, No Rashes, No Diaphoresis. Appetite is Normal Physical Exam Gen-AAO x 3, NAD, Afebrile Head-NCAT, EOMI, PERRLA, Anicteric Sclera, No Posterior Pharyngeal Erythema Neck-Supple, No JVD, No Thyromegaly, No Masses, No LAD, No Bruits Lungs-Clear to Auscultation Bilaterally, No Rales, No Rhonchi, No Wheezing, No Crepitus Chest-Tachy, No S4, +S1, +S2, No S3, No Murmurs, No Rubs, No Gallops, No Ectopy Abdomen-Soft, Bowel Sounds Present, Non Tender, Non Distended, No Hepatomegaly, No Splenomegaly, No Palpable Masses, No Rebound, No Rigidity, No Guarding Musculoskeletal-Full Range of Motion Bilaterally, No CVAT Extremities-No Cyanosis, No Clubbing, No Edema Nuero-Cranial Nerves II-XII grossly intact, Motor WNL, DTRs WNL, Strength WNL, Non Focal Psych-Normal Mood Discharge Data Allergies Allergy/AdvReac Type Severity Reaction Status Date / Time tramadol Allergy Severe Seizure Verified 12/17/20 09:00 gabapentin Allergy Intermediate Hallucinati Verified 12/17/20 09:00 ng ketorolac [From Toradol] Allergy Mild shaky, Verified 12/17/20 09:00 dizzy, uneasy feeling Consultations 12/17/20 11:52 ED Decision to Admit Stat Ordered Studies 12/17/20 10:54 US liver Stat Current Diagnoses Hypokalemia (12/17/20) Alcohol abuse, uncomplicated (12/17/20) Acute pancreatitis without necrosis or infection, unspecified (12/17/20) Encounter for prophylactic measures, unspecified (12/17/20) Allergies tramadol Allergy (Severe, Verified 12/17/20 09:00) Seizure gabapentin Allergy (Intermediate, Verified 12/17/20 09:00) Hallucinating ketorolac [From Toradol] Allergy (Mild, Verified 12/17/20 09:00) shaky, dizzy, uneasy feeling Height/Weight/Isolation Height 5 ft 3 in Weight 58.7 kg Chemistry 12/17/20 12/17/20 12/17/20 08:44 15:43 20:47 Sodium 139 139 Potassium 2.7 L 3.0 L 3.4 L Chloride 93 L 99 Carbon Dioxide 27 29 Anion Gap 19.0 H 11.0 BUN 10 10 Creatinine 1.07 0.98 Glucose 165 H 166 H 12/18/20 06:14 Sodium 139 Potassium 3.3 L Chloride 103 Carbon Dioxide 32 Anion Gap 4.0 BUN 6 L Creatinine 0.66 D Glucose 95 Hospital Course (1) Alcohol abuse: (2) Pancreatitis: Patient is 40-year-old female with past medical history as stated below presented with epigastric pain likely secondary to alcohol gastritis or worsening of her chronic pancreatitis. Patient is actively drinking vodka. Last drink was 1 day prior to admission. Alcohol intoxication/concern for withdrawal Recurrent pancreatitis Elevated LFTs History of recurrent pancreatitis History of alcohol abuse History of pseudocyst/necrosis Status post axios stent placement; removed on November 20 History of COVID-19 History of hypertension History of nonischemic History of migraine History of anxiety/depression Better this morning. Have been tolerating clear liquid diet. Daughter with 103 temp at home, requested DC DICK DC on Thiamine, Folate, Serax, MVIT and continue OP meds RUQ US shows similar peripancreatic fluid collection noted on CT ABD/pelvis 12/04/2020 Likely alcohol gastritis /exacerbation of chronic alcohol pancreatitis Patient reports she is actively working with [facility] Case management for rehab referrals. (3) Acute hypokalemia: K=3.3 yesterday and K ordered (4) DVT prophylaxis: -SCDs, ambulate DC today second to family emergency c 4 YO Dtr Total Time Total Time Spent Total Time Spent (In Minutes): 45 mins Total Time Includes: Examination of the Patient, Discharge Planning and Medication Reconciliation Discharge Plan Discharge Items Patient Disposition: Home - Self-Care Reason For Visit: ALOCHOL ABUSE,CHRONIC PANCREATITIS Discharge Diagnosis: Alcohol withdrawal/Abuse Chronic Pancreatitis Condition on Discharge: Fair Health Concerns: Relapse Activity: Resume your previous activity Lifting: Gradually increase as tolerated Bathing: No limitations Sexual Activity: When tolerated Exercise/Sports: Gradually increase as tolerated Driving/Machine Use: No limitations Weightbearing: Full weightbearing Non-emergency contact: Primary Care Provider Call non-emergency contact if: you have any medication questions Follow-up/Referrals: Marianela Arroyo MD [Primary Care Provider] - Diet: Clear liquid Addtl Attending Provider Instructions: Take oxazepam around the clock for 3 days Pending Studies at Discharge: No Stand-Alone Forms: My [facility], Smoking Cessation Medications and DC Order Prescriptions: New thiamine HCl (vitamin B1) [Vitamin B-1] 100 mg Tablet 100 mg PO QAM Qty: 30 RF: 0 folic acid 1 mg Tablet 1 mg PO QAM Qty: 30 RF: 0 Multivitamin Women 50 Plus 8 mg iron-400 mcg-300 mcg tablet 1 tab PO DAILY Qty: 90 RF: 0 oxazepam 15 mg capsule 15 mg PO Q8H Qty: 14 RF: 0 Continued naltrexone 50 mg Tablet 50 mg PO QAM RF: 0 chlordiazepoxide HCl 25 mg capsule 25 mg PO UD RF: 0 buspirone 5 mg tablet 5 mg PO TID RF: 0 sucralfate 1 gram tablet 1 g PO QID RF: 0 pantoprazole 40 mg tablet,delayed release (DR/EC) 40 mg PO DAILY RF: 0 Discharge Orders: Discharge Order (Routine); Ordered 12/19/20 Ordered By: Blake Kenny Admission Data Admit Date/Time: 12/17/20 11:58 Attending Provider: Blake Kenny Admit Provider: Kim Sewell Primary Care Provider: Marianela Arroyo Other Providers: Kim Sewell
[2020-12-19] MEDS ORDERED: GABAPENTIN 600 MG TAB PO SCH (14:00)
--- NOTE | 2020-12-19 15:22 | Electrocardiogram Report ---
Test Reason : Blood Pressure : / mmHG Vent. Rate : 067 BPM Atrial Rate : 067 BPM P-R Int : 104 ms QRS Dur : 076 ms QT Int : 412 ms P-R-T Axes : 032 055 067 degrees QTc Int : 435 ms Sinus rhythm with short AK Otherwise normal ECG When compared with ECG of 18-DEC-2020 07:26, No significant change was found Confirmed by Carlos Alberto Carrasco ([id number]) on 12/19/2020 3:22:21 PM Referred By: REFERRED SELF Confirmed By:Carlos Alberto Carrasco
[2020-12-21] MEDS ORDERED: GABAPENTIN 600 MG TAB PO SCH (02:00)
== END 2020-12-19 09:40 | disposition home or self-care (01) ==
LOC: ED 08:18 → 2S 11:58 → SUATTDRO 11:58 → 2S 12:46

== ENCOUNTER 2020-12-31 01:54 | Inpatient (IN) ==
[2020-12-31] MEDS ORDERED: MULTI-VITAMIN INFUSION 10 ML, THIAMINE HCL 100 MG, FOLIC ACID 1 MG in SODIUM CHLORIDE 0... IV ONE (02:00)
[2020-12-31] MEDS ORDERED: ONDANSETRON INJ 2 MG/ML 2 ML VIAL IV STA (02:00)
[2020-12-31] MEDS ORDERED: MoRPHine SULFATE 10 MG/ML CARP/VIAL IV STA ×2 (02:00→02:55)
--- NOTE | 2020-12-31 02:08 | Emergency Department Note ---
Impression & Plan Acute alcoholic pancreatitis, Lactic acidosis, Acute dehydration, Acute renal failure, Elevated troponin ED Provider Note Name: CHAD BAUM Age: 40 Sex: F Arrives Via: Ambulance Informant: Patient, EMS ED Provider: Chaitanya Jones MD Chief Complaint: Epigastric pain Impression: Acute Alcoholic Pancreatitis Lactic Acidosis Acute Dehydration Acute Renal Failure Elevated Troponin Medical Decision Makin yr old female alcoholic with history of pancreatic cysts, cardiomyopathy, and frequent ED visits/hospitalizations for pancreatitis. She arrives mildly intoxicated though appears to be withdrawing some along with tachycardia and severely dehydrated appearing. IV fluids given, IV narcotics for pain followed by IV ativan as well. Labs with elevated lipase, severe Lactate elevation, and multiple electrolyte abnormalities consistent with poor nutritional and dehydration. She was given further IV fluids and medications. She had Blood Cultures obtained though I do not see any clear evidence of infection at this time thus will hold off on abx. Lactate is likely combination severe dehydration in setting of liver injury from alcohol. EKG with lateral st depressions/ischemia and trop is bumped. Likely type 2 nstemi and will hold on heparin until hospitalist evaluation. I do not find evidence of heart failrue at this time. She was kept comfortable throughout. Given findings non con CT obtained of abdomen which was unremarkable. She got up to use bathroom and essentially laid down in bathroom, but given heavy etoh use I felt it prudent to ct head/cervical though I will not there is no evidence of injury to patient on exam nor ct's. Hospitalist consulted for management. Prior Medical Record and Triage/Nursing Notes reviewed by Me Additional history obtained from chart Differentials:Pancreatitis, Infection, dehydration, metabolic abnormality, hypo/hyperglycemia, electrolyte disturbance, anemia, hypoxia, cardiac sources, intracerebral event, toxicologic, neurologic, as well as other pathologies. Vital Signs: reviewed and remarkable for tachycardia Interventions: NSS Bolus 2L (+1L EMS), NSS infusion, Ativan IV, Morphine IV, Banana bag IV, Labs:Reviewed and remarkable for +trop, mild positive etoh, +lactate, cr elevated, electrolytes off Imaging: X ray results are stated below per my interpretation: Chest: 1 view: No infiltrate, no effusion, normal cardiac border. [facility] Radiologist interpretation reviewed by me: CT head/cervical no acute findings. CT a/p no acute findings EKG:Per My Interpretation: Indication Epigastric pain: Sinus Tach 125 bpm, qtc [address] depressions which are new form ekg 11/20/20. No ectopy, no stemi. Cardiac/Tele Monitoring: Cardiac Monitoring: An Order was placed for continuous cardiac monitoring. The monitor shows a rate of 120 with a sinus tach rhythm. Consults:Dr Gustavo Gunter Hospitalist Plan: Disposition:Hospitalization. Referred to: PCP Condition: Fair History of Present Illness:40 yr old female arrives for evaluation of epigastr ic pain. Patient with long history alcoholism and frequent hospitalizations for pancreatitis. She has been drinking heavily the last few days with increasing epigastric pain for last 3 days. Today drank a bottle of vodka though was vomiting many times throughout day as well. Pain severe and epigastric. No radiation. Stabbing in quality. No fevers, chills, cp, sob, syncope, blood in emesis, urinary/bowel changes, leg swelling, rashes, nor other symptoms. Unable to take any medications for this. Drinking makes worse, nothing makes better. EMS gave her IV zofran and fentanyl along with 1 L NSS en route. She has a history of non-ischemic cardiomyopathy and notes her heart rate has been high all day. EMS notes HR in 150s on arrival, improving with nss bolus. ROS: See above HPI for pertinent positives & negatives. A total of 10 systems reviewed and were otherwise negative. Past Medical History:Pancreatitis, Alcoholism, Depression/Anxiety, Pancreatic pseudocyst, renal colic, migraines, narcotic addiction Past Surgical History:See Below Family History:See Below Social History:See Below Home Medications:See Below Allergies:tramadol, gabapentin, toradol Vitals:Blood Pressure: 135/98, Pulse 117, RR 22, T 37.3C, O2 96% on RA Physical Exam: GENERAL: Patient is very uncomfortable appearing and in moderate distress. She is not overtly intoxicated. Significant dehydrated appearing EYES: No scleral icterus, unremarkable pupils. ENT: Mucous membranes dry, no nasal congestion. NECK: No masses appreciated, nomeningismus, trachea is midline. RESPIRATORY: No dyspnea. Clear to auscultation and equal bilaterally. No wheeze, no rhonchi. CARDIOVASCULAR: Tachy,No murmurs, rubs, gallops appreciated. GASTROINTESTINAL: Epigastric TTP otherwise abdomen soft, non-tender, no peritonitis.Bowel sounds positive.No masses appreciated. BACK: No midline tenderness, no CVA tenderness EXTREMITIES: Normal motion all extremities, no cyanosis, no edema. NEUROLOGIC: Tremulous, Alert and oriented, no acute motor or sensory deficits, no focal weakness, cranial nerves grossly intact. SKIN: No rash, no jaundice, no diaphoresis. PSYCH: Appropriate GCS: 15 ED Course: Times/Reassessments: many repeat evaluations Critical Care: I have personally spent 45 minutes of critical care time in the direct management of this patient. Acute alcoholic pancreatitis with severe dehydration, lactic acidosis, NSTEMI and alcohol withdrawal. This was a life/limb threatening event. This 45 minutes is in excess of all separately billable procedures. Chaitanya Jones MD Past Med/Surg History Medical History Alcohol abuse Anxiety Depression History of COVID-19 diagnosed 10/09/2020 @ [facility]--asymptomatic at first then developed cough, sore throat, low grade fever for 1-2 days--not hospitalized History of kidney stones History of narcotic addiction Hypertension Migraine Nonischemic cardiomyopathy Pancreatic pseudocyst 08/2020 - AXIOS stent placement for pancreatic drainage, removed 11/30/20 Pancreatitis Surgical History H/O esophagogastroduodenoscopy Endoscopic US hx of endoscopic necrosectomy 08/2020 History of colposcopy History of dental surgery History of laparoscopic cholecystectomy History of tooth extraction History of wisdom tooth extraction Family History Grandfather (Paternal) Diabetes Grandmother (Maternal) Diabetes Mother Family history of diabetes mellitus Other No family history of adverse response to anesthesia Social History Smoking Status: Never smoker Second Hand Exposure: No; Hx Alcohol Use: Yes Alcohol type: wine and hard liquor Alcohol Intake Frequency: 4 or More x per/Week Hx Substance Use: No Preferred Language: Montserratian Communication Ability: Effective Fur Trapper Required: No Beliefs That Will Affect Care: None marital status: Current Living Situation: Spouse and Family Current Living Situation Comment: Lives with and 5 kids How many Children do You have: 5 Other Information That Helps Us Care for You: No Feels Safe at Home: Yes Safety Concerns: Feels Safe At This Time Assistive Devices: Contacts and Glasses Allergies Allergies Allergy/AdvReac Type Severity Reaction Status Date / Time tramadol Allergy Severe Seizure Verified 12/31/20 02:11 gabapentin Allergy Intermediate Hallucinati Verified 12/31/20 02:11 ng ketorolac [From Toradol] Allergy Mild shaky, Verified 12/31/20 02:11 dizzy, uneasy feeling Home Meds Home Medications Medication Instructions Recorded Confirmed buspirone 5 mg PO TID 12/17/20 12/31/20 pantoprazole 40 mg PO DAILY 12/17/20 12/31/20 naltrexone 50 mg PO DAILY 12/31/20 12/31/20 Previous Rx's Medication Instructions Recorded folic acid 1 mg PO QAM #30 tab 12/19/20 [id number] 1 tab PO DAILY #90 tab 12/19/20 [Multivitamin Women 50 Plus] thiamine HCl (vitamin B1) [Vitamin 100 mg PO QAM #30 tab 12/19/20 B-1] Results & Data (ED) Vital Signs Vital Signs - 24 hr 12/31/20 02:06 12/31/20 02:45 12/31/20 03:00 Temperature 36.9 C Temperature Source Oral Pulse Rate 139 H 124 H 124 H Respiratory Rate 16 14 22 Respiratory Effort / Characteristics Non-Labored Spontaneous Respiratory Depth Normal Respiratory Pattern Regular Blood Pressure 144/99 H 124/88 125/82 Blood Pressure Mean 114 100 96 Blood Pressure Position Sitting Pulse Oximetry 96 96 97 Oxygen Delivery Method Room Air Room Air Room Air Sepsis Recent Fever Within 48 Hours No Sepsis New/Unexplained Change in Mental Status N/A Sepsis Action Taken by Nursing No Action Required 12/31/20 03:32 12/31/20 04:00 12/31/20 04:30 Temperature Temperature Source Pulse Rate 115 H 124 H 133 H Respiratory Rate 16 17 17 Respiratory Effort / Characteristics Respiratory Depth Respiratory Pattern Blood Pressure 135/96 131/89 115/80 Blood Pressure Mean 109 103 91 Blood Pressure Position Pulse Oximetry 97 97 93 Oxygen Delivery Method Room Air Sepsis Recent Fever Within 48 Hours Sepsis New/Unexplained Change in Mental Status Sepsis Action Taken by Nursing 12/31/20 05:06 Temperature Temperature Source Pulse Rate 148 H Respiratory Rate 18 Respiratory Effort / Characteristics Respiratory Depth Respiratory Pattern Blood Pressure 117/82 Blood Pressure Mean 93 Blood Pressure Position Pulse Oximetry 93 Oxygen Delivery Method Room Air Sepsis Recent Fever Within 48 Hours Sepsis New/Unexplained Change in Mental Status Sepsis Action Taken by Nursing Laboratory Data Result diagrams: 12/31/20 01:30 12/31/20 02:27 Lab Results 12/31/20 12/31/20 12/31/20 Range/Units 01:30 01:30 01:30 WBC (4.8-10.8) K/uL RBC (4.2-5.4) M/uL Hgb (12.0-16.0) g/dL Hct (37-47) % MCV (80-100) fL MCH (25-34) pg MCHC (32-36) g/dL RDW Std Deviation (36.4-46.3) fL RDW Coeff of Hanna (11.5-14.5) % Plt Count (130-400) K/uL MPV (7.4-10.4) fL Immature Gran % (Auto) % Neut % (Auto) % Lymph % (Auto) % [place] % (Auto) % Eos % (Auto) % Baso % (Auto) % Neut # (Auto) (1.4-6.5) K/uL Lymph # (Auto) (1.2-3.4) K/uL [place] # (Auto) (0.11-0.59) K/uL Eos # (Auto) (0-0.5) K/uL Baso # (Auto) (0-0.2) K/uL Immature Gran # (Auto) (0.00-0.02) K/uL PT 12.5 H (9.0-12.0) Seconds INR 1.3 H (0.9-1.1) APTT 23.4 (21.0-31.0) Seconds PTT Ratio 0.9 Sodium Cancelled Potassium Cancelled Chloride Cancelled Carbon Dioxide Cancelled Anion Gap Cancelled BUN Cancelled Creatinine Cancelled Est Cr Clr Drug Dosing Cancelled Est GFR ( Amer) Cancelled Est GFR (Non-Af Amer) Cancelled BUN/Creatinine Ratio Cancelled Glucose Cancelled Lactate (0.4-2.0) mmol/L Calcium Cancelled Phosphorus Cancelled Magnesium Cancelled Total Bilirubin Cancelled Direct Bilirubin Cancelled AST Cancelled ALT Cancelled Alkaline Phosphatase Cancelled Troponin I Cancelled Total Protein Cancelled Albumin Cancelled Lipase Cancelled Procalcitonin (0-0.5) ng/ml TSH Cancelled HCG, Qual Negative (Negative) Ethyl Alcohol mg/dL (0-3) mg/dl COVID-19 Eval Order SARS-CoV-2, RNA, NAAT (NEGATIVE) 12/31/20 12/31/20 12/31/20 Range/Units 01:30 01:35 02:11 WBC 11.65 H (4.8-10.8) K/uL RBC 4.92 (4.2-5.4) M/uL Hgb 16.2 H (12.0-16.0) g/dL Hct 46.6 (37-47) % MCV 94.7 (80-100) fL MCH 32.9 (25-34) pg MCHC 34.8 (32-36) g/dL RDW Std Deviation 43.4 (36.4-46.3) fL RDW Coeff of Hanna 12.6 (11.5-14.5) % Plt Count 388 (130-400) K/uL MPV 10.4 (7.4-10.4) fL Immature Gran % (Auto) 0.3 % Neut % (Auto) 91.9 % Lymph % (Auto) 2.7 % [place] % (Auto) 5.1 % Eos % (Auto) 0.0 % Baso % (Auto) 0.0 % Neut # (Auto) 10.72 H (1.4-6.5) K/uL Lymph # (Auto) 0.31 L (1.2-3.4) K/uL [place] # (Auto) 0.59 (0.11-0.59) K/uL Eos # (Auto) 0.00 (0-0.5) K/uL Baso # (Auto) 0.00 (0-0.2) K/uL Immature Gran # (Auto) 0.03 H (0.00-0.02) K/uL PT (9.0-12.0) Seconds INR (0.9-1.1) APTT (21.0-31.0) Seconds PTT Ratio Sodium Potassium Chloride Carbon Dioxide Anion Gap BUN Creatinine Est Cr Clr Drug Dosing Est GFR ( Amer) Est GFR (Non-Af Amer) BUN/Creatinine Ratio Glucose Lactate (0.4-2.0) mmol/L Calcium Phosphorus Magnesium Total Bilirubin Direct Bilirubin AST ALT Alkaline Phosphatase Troponin I Total Protein Albumin Lipase Procalcitonin 0.21 (0-0.5) ng/ml TSH HCG, Qual (Negative) Ethyl Alcohol mg/dL (0-3) mg/dl COVID-19 Eval Order Covid19 IDNow atMIAC SARS-CoV-2, RNA, NAAT (NEGATIVE) 12/31/20 12/31/20 12/31/20 Range/Units 02:11 02:26 02:26 WBC (4.8-10.8) K/uL RBC (4.2-5.4) M/uL Hgb (12.0-16.0) g/dL Hct (37-47) % MCV (80-100) fL MCH (25-34) pg MCHC (32-36) g/dL RDW Std Deviation (36.4-46.3) fL RDW Coeff of Hanna (11.5-14.5) % Plt Count (130-400) K/uL MPV (7.4-10.4) fL Immature Gran % (Auto) % Neut % (Auto) % Lymph % (Auto) % [place] % (Auto) % Eos % (Auto) % Baso % (Auto) % Neut # (Auto) (1.4-6.5) K/uL Lymph # (Auto) (1.2-3.4) K/uL [place] # (Auto) (0.11-0.59) K/uL Eos # (Auto) (0-0.5) K/uL Baso # (Auto) (0-0.2) K/uL Immature Gran # (Auto) (0.00-0.02) K/uL PT (9.0-12.0) Seconds INR (0.9-1.1) APTT (21.0-31.0) Seconds PTT Ratio Sodium Potassium Chloride Carbon Dioxide Anion Gap BUN Creatinine Est Cr Clr Drug Dosing Est GFR ( Amer) Est GFR (Non-Af Amer) BUN/Creatinine Ratio Glucose Lactate 12.3 H* (0.4-2.0) mmol/L Calcium Phosphorus Magnesium Total Bilirubin Direct Bilirubin AST ALT Alkaline Phosphatase Troponin I Total Protein Albumin Lipase Procalcitonin (0-0.5) ng/ml TSH HCG, Qual (Negative) Ethyl Alcohol mg/dL 107.0 H (0-3) mg/dl COVID-19 Eval Order SARS-CoV-2, RNA, NAAT NEGATIVE (NEGATIVE) 12/31/20 12/31/20 Range/Units 02:27 04:08 WBC (4.8-10.8) K/uL RBC (4.2-5.4) M/uL Hgb (12.0-16.0) g/dL Hct (37-47) % MCV (80-100) fL MCH (25-34) pg MCHC (32-36) g/dL RDW Std Deviation (36.4-46.3) fL RDW Coeff of Hanna (11.5-14.5) % Plt Count (130-400) K/uL MPV (7.4-10.4) fL Immature Gran % (Auto) % Neut % (Auto) % Lymph % (Auto) % [place] % (Auto) % Eos % (Auto) % Baso % (Auto) % Neut # (Auto) (1.4-6.5) K/uL Lymph # (Auto) (1.2-3.4) K/uL [place] # (Auto) (0.11-0.59) K/uL Eos # (Auto) (0-0.5) K/uL Baso # (Auto) (0-0.2) K/uL Immature Gran # (Auto) (0.00-0.02) K/uL PT (9.0-12.0) Seconds INR (0.9-1.1) APTT (21.0-31.0) Seconds PTT Ratio Sodium 133 L Potassium 2.4 L* Chloride 77 L Carbon Dioxide 22 Anion Gap 35.0 H BUN 34 H Creatinine 2.24 H Est Cr Clr Drug Dosing 27.3 Est GFR ( Amer) 30.6 Est GFR (Non-Af Amer) 26.4 BUN/Creatinine Ratio 15.0 Glucose 153 H Lactate 6.3 H* (0.4-2.0) mmol/L Calcium 8.8 Phosphorus 7.5 H Magnesium 2.2 Total Bilirubin 2.6 H Direct Bilirubin 1.6 H AST 460 H ALT 113 H Alkaline Phosphatase 182 H Troponin I 0.053 H* Total Protein 9.6 H Albumin 4.2 Lipase 1024 H Procalcitonin (0-0.5) ng/ml TSH 0.573 HCG, Qual (Negative) Ethyl Alcohol mg/dL (0-3) mg/dl COVID-19 Eval Order SARS-CoV-2, RNA, NAAT (NEGATIVE) Administered Medications Chlordiazepoxide HCl (Chlordiazepoxide Hcl 25 Mg Cap) 25 mg PO Q6 DONOVAN; Taper Stop: 01/02/21 06:17 Last Admin: 12/31/20 06:42 Dose: 25 mg Documented by: [id number] Heparin Sodium (Porcine) (Heparin Sod 5,000 Unit/0.5 Ml Vial) 5,000 units SQ Q8 DONOVAN Stop: 01/30/21 06:17 Last Admin: 12/31/20 06:42 Dose: 5,000 units Documented by: [id number] Discontinued Medications Acetaminophen (Acetaminophen 325 Mg Tab) 325 mg PO NOW STA Stop: 12/31/20 05:44 Last Admin: 12/31/20 05:48 Dose: Not Given Documented by: [id number] Acetaminophen (Acetaminophen 325 Mg Tab) Confirm Administered Dose 325 mg .ROUTE .STK-MED ONE Stop: 12/31/20 05:45 Last Admin: 12/31/20 05:45 Dose: 325 mg Documented by: [id number] Multivitamins 10 ml/ Thiamine HCl 100 mg/ Folic Acid 1 mg/Sodium Chloride 1,011.2 mls @ 1,011.2 mls/hr IV .Q1H ONE Stop: 12/31/20 02:59 Last Infusion: 12/31/20 03:26 Dose: 0 mls/hr Documented by: [id number] Admin: 12/31/20 02:26 Dose: 1,011.2 mls/hr Documented by: [id number] Sodium Chloride (Nss 1000ml) 1,000 mls @ 999 mls/hr IV .Q1H1M ONE Stop: 12/31/20 04:11 Last Infusion: 12/31/20 04:32 Dose: 0 mls/hr Documented by: [id number] Admin: 12/31/20 03:31 Dose: 999 mls/hr Documented by: [id number] Lorazepam (Ativan) 2 mg in 4 mls @ 4 mls/min IV NOW STA Stop: 12/31/20 03:14 Last Admin: 12/31/20 03:31 Dose: 4 mls/min Documented by: [id number] Lactated Ringer's (Lr) 1,000 mls @ 500 mls/hr IV .Q2H STA Stop: 12/31/20 06:48 Last Admin: 12/31/20 04:57 Dose: 500 mls/hr Documented by: [id number] Sodium Chloride (Nss 1000ml) 1,000 mls @ 999 mls/hr IV .Q1H1M ONE Stop: 12/31/20 05:49 Last Admin: 12/31/20 04:58 Dose: Not Given Documented by: [id number] Lorazepam (Ativan) 2 mg in 4 mls @ 4 mls/min IV NOW STA Stop: 12/31/20 05:03 Last Admin: 12/31/20 05:06 Dose: 4 mls/min Documented by: [id number] Metoprolol Tartrate (Metoprolol Tartrate 1 Mg/Ml Vial) 2.5 mg IV NOW STA Stop: 12/31/20 05:20 Last Admin: 12/31/20 05:33 Dose: 2.5 mg Documented by: [id number] Morphine Sulfate (Morphine Sulfate 10 Mg/Ml Carp/Vial) 6 mg IV NOW STA Stop: 12/31/20 02:01 Last Admin: 12/31/20 02:08 Dose: 6 mg Documented by: [id number] Morphine Sulfate (Morphine Sulfate 10 Mg/Ml Carp/Vial) 6 mg IV NOW STA Stop: 12/31/20 02:56 Last Admin: 12/31/20 02:59 Dose: 6 mg Documented by: [id number] Ondansetron HCl (Ondansetron Inj 2 Mg/Ml 2 Ml Vial) 4 mg IV NOW STA Stop: 12/31/20 02:01 Last Admin: 12/31/20 02:08 Dose: 4 mg Documented by: [id number] Potassium Chloride (Potassium Chloride 10 Meq Tabcr) 50 meq PO NOW STA Stop: 12/31/20 05:19 Last Admin: 12/31/20 05:33 Dose: 50 meq Documented by: [id number] Discharge Plan Visit Data Chief Complaint: Abdominal Pain Stated Complaint: EPIGASTRIC PAIN ED Provider: Chaitanya Jones Discharge Problem: Acute alcoholic pancreatitis, Lactic acidosis, Acute dehydration, Acute renal failure, Elevated troponin Patient Disposition: Admitted As Inpatient Discharge Instructions Interventions: ED Discharge Assessment Last Done: 12/31/20 05:58 Discharge Problem: Acute alcoholic pancreatitis Qualifiers: Acute pancreatitis complication: no infection or necrosis Qualified Code(s): K85.20 - Alcohol induced acute pancreatitis without necrosis or infection Acute renal failure Qualifiers: Acute renal failure type: unspecified Qualified Code(s): N17.9 - Acute kidney failure, unspecified
[2020-12-31 02:15] LABS: Hematocrit (blood only) 46.6 % (37-47); Hemoglobin 16.2 g/dL (12.0-16.0); Immature Granulocytes # (auto) 0.03 K/uL (0.00-0.02); Immature Granulocytes % (auto) 0.3 %; Lymphocytes # (auto) 0.31 K/uL (1.2-3.4); Lymphocytes % (auto) 2.7 %; Mean Corpuscular Hemoglobin 32.9 pg (25-34); Mean Corpuscular Hgb Conc 34.8 g/dL (32-36); Mean Corpuscular Volume 94.7 fL (80-100); Mean Platelet Volume 10.4 fL (7.4-10.4); Monocytes # (auto) 0.59 K/uL (0.11-0.59); Monocytes % (auto) 5.1 %; Neutrophils # (auto) 10.72 K/uL (1.4-6.5); Neutrophils % (auto) 91.9 %; Platelet Count 388 K/uL (130-400); RDW Coefficient of Variation 12.6 % (11.5-14.5); RDW Standard Deviation 43.4 fL (36.4-46.3); Red Blood Count 4.92 M/uL (4.2-5.4); White Blood Count 11.65 K/uL (4.8-10.8)
[2020-12-31 02:26] LABS: INR 1.3 (0.9-1.1); Partial Thromboplastin Ratio 0.9; Partial Thromboplastin Time 23.4 Seconds (21.0-31.0); Prothrombin Time 12.5 Seconds (9.0-12.0)
[2020-12-31 02:37] LABS: Pregnancy Test, Serum Negative (Negative)
[2020-12-31 03:11] LABS: Albumin Level 4.2 gm/dl (3.4-5.0); Bilirubin Direct 1.6 mg/dl (0-0.2); Calcium 8.8 mg/dl (8.5-10.1); Creatinine Clr Calc Pharmacy 27.3 ml/min; Est GFR (African American) 30.6; Est GFR (Non-African American) 26.4; Magnesium 2.2 mg/dl (1.8-2.4); Potassium 2.4 mmol/L (3.5-5.1)
[2020-12-31] MEDS ORDERED: SODIUM CHLORIDE 0.9% 1000ML 1,000 ML IV ONE ×2 (03:11→04:49)
[2020-12-31] MEDS ORDERED: LORazepam 2 MG/4 ML VIAL IV STA ×2 (03:13→05:02)
[2020-12-31 03:18] LABS: Bilirubin,Total 2.6 mg/dl (0.2-1); Phosphorus 7.5 mg/dl (2.5-4.9); Thyroid Stimulating Hormone 0.573 uIu/ml (0.300-4.500); Total Protein 9.6 gm/dl (6.4-8.2); Troponin I 0.053 ng/ml (0-0.045)
[2020-12-31] MEDS ORDERED: SODIUM CHLORIDE 0.9% 1000ML 1,000 ML IV SCH (04:15)
[2020-12-31] MEDS ORDERED: LACTATED RINGER'S 1,000 ML IV STA (04:49)
[2020-12-31] MEDS ORDERED: PROMETHAZINE HCL 12.5 MG in SODIUM CHLORIDE 0.9% 50 ML IV PRN (04:58)
[2020-12-31] MEDS ORDERED: POTASSIUM CHLORIDE 10 MEQ TABCR PO STA (05:18)
[2020-12-31] MEDS ORDERED: METOPROLOL TARTRATE 1 MG/ML VIAL IV STA (05:19)
[2020-12-31] MEDS ORDERED: ACETAMINOPHEN 325 MG TAB PO STA (05:43)
[2020-12-31] MEDS ORDERED: ACETAMINOPHEN 325 MG TAB ONE (05:44)
[2020-12-31] MEDS ORDERED: ACETAMINOPHEN 325 MG TAB PO PRN (06:18)
[2020-12-31] MEDS ORDERED: chlordiazePOXIDE ALCOHOL WITHDRAWL 25MG PO STA (06:18)
[2020-12-31] MEDS ORDERED: ATIVAN IV ALCOHOL WITHDRAWL IV PRN (06:18)
[2020-12-31] MEDS ORDERED: LORazepam 3 MG/6 ML VIAL IV PRN (06:18)
[2020-12-31] MEDS: HEPARIN SOD 5,000 UNIT/0.5 ML VIAL SQ SCH ×3 (06:42→21:14)
[2020-12-31] MEDS: chlordiazePOXIDE HCl 25 MG CAP PO SCH ×4 (06:42→23:30)
--- NOTE | 2020-12-31 06:43 | History & Physical Report ---
Date of Service December 31, 2020 Assessment & Plan (1) Tachycardia: Tachycardia: Multifactorial : recurrent alcoholic pancreatitis ARF, AGMA, clinical dehydration, hypokalemia Alcohol withdrawal Troponin elevation secondary to tachycardia in the setting of kidney dysfunction nonischemic cardiomyopathy (EF 55 to 60 TTE 2019), patient on the dry side HTN, BP currently stable (patient has been off her home beta-penny since November 2020 admission possibly due to low blood pressure during October 2020 confinement.) history pancreatic pseudocyst/necrosis status post endoscopic necrosectomy narcotic addiction as per records Anxiety/depression, currently not on medications. Chronic anemia, hemoglobin better than baseline secondary to hemoconcentration PCU IVF, bowel rest GI consult if with worsening clinical status Baseline UA, monitor creatinine response to IVF Replace potassium Nephrology consult if without improvement following fluid challenge JANUSZ S, DT precautions Reinitiate home beta-penny if BP uncontrolled. Social service RE discharge planning Judicious narcotic use given history narcotic addiction, suspect secondary gain given monthly admissions for recurrent pancreatitis Follow troponin, TTE if with progression Social service RE discharge planning, patient to consider alcohol rehab DVT prophylaxis per Heparin subcu Full code Text document was generated using [email or web address] voice recognition software. It may contain grammatical or spelling errors. Kindly contact undersigned for clarification of any documentation item in question. Admission and Anticipated Discharge Date Admission Date: December 31, 2020 History of Present Illness Chief Complaint: Abdominal pain Primary Care Provider: Marianela Arroyo MD History obtained from patient and records. Medical history significant for nonischemic cardiomyopathy (EF 55 to 60 TTE 2019), HTN, recurrent pancreatitis, history pancreatic pseudocyst/necrosis status post endoscopic necrosectomy, narcotic addiction as per records, chronic anemia (baseline hemoglobin 10-11), alcohol abuse. Monthly admissions since May 2020 for recurrent pancreatitis and alcohol withdrawal. Recent confinement last month. Patient began drinking heavily again a few days ago. She subsequently noted stabbing epigastric pain reminiscent of pancreatitis attack followed by nausea and emesis. No diarrhea symptoms. Poor appetite. No actual chest pain or shortness of breath. Heart rate noted to be 150s upon arrival of EMS. Patient brought to the ER. Patient had a fall at the ER while going to the commode. Possible head trauma without LOC. 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 Allergies Allergy/AdvReac Type Severity Reaction Status Date / Time tramadol Allergy Severe Seizure Verified 12/31/20 02:11 gabapentin Allergy Intermediate Hallucinati Verified 12/31/20 02:11 ng ketorolac [From Toradol] Allergy Mild shaky, Verified 12/31/20 02:11 dizzy, uneasy feeling Home Medications Medication Instructions Recorded Confirmed Type buspirone 5 mg PO TID 12/17/20 12/31/20 History pantoprazole 40 mg PO DAILY 12/17/20 12/31/20 History folic acid 1 mg PO QAM #30 tab 12/19/20 12/31/20 Rx osuadifk-ykg-otaw-FA-lutein 1 tab PO DAILY #90 tab 12/19/20 12/31/20 Rx [Multivitamin Women 50 Plus] thiamine HCl (vitamin B1) [Vitamin 100 mg PO QAM #30 tab 12/19/20 12/31/20 Rx B-1] naltrexone 50 mg PO DAILY 12/31/20 12/31/20 History Past Med/Surg History Medical History Alcohol abuse Anxiety Depression History of COVID-19 diagnosed 10/09/2020 @ [facility]--asymptomatic at first then developed cough, sore throat, low grade fever for 1-2 days--not hospitalized History of kidney stones History of narcotic addiction Hypertension Migraine Nonischemic cardiomyopathy Pancreatic pseudocyst 08/2020 - AXIOS stent placement for pancreatic drainage, removed 11/30/20 Pancreatitis Surgical History H/O esophagogastroduodenoscopy Endoscopic US hx of endoscopic necrosectomy 08/2020 History of colposcopy History of dental surgery History of laparoscopic cholecystectomy History of tooth extraction History of wisdom tooth extraction Family History Grandfather (Paternal) Diabetes Grandmother (Maternal) Diabetes Mother Family history of diabetes mellitus Other No family history of adverse response to anesthesia Social History Smoking Status: Never smoker Second Hand Exposure: No; Hx Alcohol Use: Yes Alcohol type: wine and hard liquor Alcohol Intake Frequency: 4 or More x per/Week Hx Substance Use: No Preferred Language: Mongolian Communication Ability: Effective Rectifying Operator Required: No Beliefs That Will Affect Care: None marital status: Current Living Situation: Spouse and Family Current Living Situation Comment: Lives with and 5 kids How many Children do You have: 5 Other Information That Helps Us Care for You: No Feels Safe at Home: Yes Safety Concerns: Feels Safe At This Time Assistive Devices: Contacts and Glasses Review of Systems Review of Systems: As per HPI, all 10 systems reviewed, all other ROS negative Physical Exam Physical Exam: GENERAL: Slightly uncomfortable, no respiratory distress SKIN: Pallor, warm HEENT: Pale palpebral conjunctivae, no ptosis, dry buccal mucosa NECK : Supple, no tenderness CHEST : CTA, no tenderness HEART : Tachycardic, no obvious murmurs ABDOMEN: Some distention, epigastric tenderness EXTREMITIES : No LE swelling/tenderness, no other conspicuous deformities noted NEUROLOGIC : Coherent, no facial asymmetry, no other gross focality Results & Data Results & Data ([facility]) Vital Signs (Past 12 Hours) Vital Signs Temp Pulse Pulse Resp BP BP Pulse Ox 12/31/20 06:10 37.3 C 117 H 22 135/98 96 12/31/20 05:42 37.4 C 12/31/20 05:35 139 H 24 105/74 92 12/31/20 05:33 140 H 105/74 12/31/20 05:06 148 H 18 117/82 93 12/31/20 04:30 133 H 17 115/80 93 12/31/20 04:00 124 H 17 131/89 97 12/31/20 03:32 115 H 16 135/96 97 12/31/20 03:00 124 H 22 125/82 97 12/31/20 02:45 124 H 14 124/88 96 12/31/20 02:06 36.9 C 139 H 16 144/99 H 96 Laboratory Results Laboratory Results WBC 11.65 K/uL (4.8-10.8) H 12/31/20 01:30 RBC 4.92 M/uL (4.2-5.4) 12/31/20 01:30 Hgb 16.2 g/dL (12.0-16.0) H 12/31/20 01:30 Hct 46.6 % (37-47) 12/31/20 01:30 MCV 94.7 fL (80-100) 12/31/20 01:30 MCH 32.9 pg (25-34) 12/31/20 01:30 MCHC 34.8 g/dL (32-36) 12/31/20 01:30 RDW Std Deviation 43.4 fL (36.4-46.3) 12/31/20 01:30 RDW Coeff of Hanna 12.6 % (11.5-14.5) 12/31/20 01:30 Plt Count 388 K/uL (130-400) 12/31/20 01:30 MPV 10.4 fL (7.4-10.4) 12/31/20 01:30 Immature Gran % (Auto) 0.3 % 12/31/20 01:30 Neut % (Auto) 91.9 % 12/31/20 01:30 Lymph % (Auto) 2.7 % 12/31/20 01:30 Hoke % (Auto) 5.1 % 12/31/20 01:30 Eos % (Auto) 0.0 % 12/31/20 01:30 Baso % (Auto) 0.0 % 12/31/20 01:30 Neut # (Auto) 10.72 K/uL (1.4-6.5) H 12/31/20 01:30 Lymph # (Auto) 0.31 K/uL (1.2-3.4) L 12/31/20 01:30 Hoke # (Auto) 0.59 K/uL (0.11-0.59) 12/31/20 01:30 Eos # (Auto) 0.00 K/uL (0-0.5) 12/31/20 01:30 Baso # (Auto) 0.00 K/uL (0-0.2) 12/31/20 01:30 Immature Gran # (Auto) 0.03 K/uL (0.00-0.02) H 12/31/20 01:30 PT 12.5 Seconds (9.0-12.0) H 12/31/20 01:30 INR 1.3 (0.9-1.1) H 12/31/20 01:30 APTT 23.4 Seconds (21.0-31.0) 12/31/20 01:30 PTT Ratio 0.9 12/31/20 01:30 Sodium 133 mmol/L (136-145) L 12/31/20 02:27 Potassium 2.4 mmol/L (3.5-5.1) L* 12/31/20 02:27 Chloride 77 mmol/L (98-107) L 12/31/20 02:27 Carbon Dioxide 22 mmol/L (21-32) 12/31/20 02:27 Anion Gap 35.0 (3-11) H 12/31/20 02:27 BUN 34 mg/dl (7-18) H 12/31/20 02:27 Creatinine 2.24 mg/dl (0.6-1.2) H 12/31/20 02:27 Est Cr Clr Drug Dosing 27.3 ml/min 12/31/20 02:27 Est GFR ( Amer) 30.6 12/31/20 02:27 Est GFR (Non-Af Amer) 26.4 12/31/20 02:27 BUN/Creatinine Ratio 15.0 (10-20) 12/31/20 02:27 Glucose 153 mg/dl (70-99) H 12/31/20 02:27 Lactate 6.3 mmol/L (0.4-2.0) H* 12/31/20 04:08 Calcium 8.8 mg/dl (8.5-10.1) 12/31/20 02:27 Phosphorus 7.5 mg/dl (2.5-4.9) H 12/31/20 02:27 Magnesium 2.2 mg/dl (1.8-2.4) 12/31/20 02:27 Total Bilirubin 2.6 mg/dl (0.2-1) H 12/31/20 02:27 Direct Bilirubin 1.6 mg/dl (0-0.2) H 12/31/20 02:27 AST 460 U/L (15-37) H 12/31/20 02:27 ALT 113 U/L (12-78) H 12/31/20 02:27 Alkaline Phosphatase 182 U/L (45-117) H 12/31/20 02:27 Troponin I 0.053 ng/ml (0-0.045) H* 12/31/20 02:27 Total Protein 9.6 gm/dl (6.4-8.2) H 12/31/20 02:27 Albumin 4.2 gm/dl (3.4-5.0) 12/31/20 02:27 Lipase 1024 U/L (73-393) H 12/31/20 02:27 Procalcitonin 0.21 ng/ml (0-0.5) 12/31/20 01:35 TSH 0.573 uIu/ml (0.300-4.500) 12/31/20 02:27 HCG, Qual Negative (Negative) 12/31/20 01:30 Ethyl Alcohol mg/dL 107.0 mg/dl (0-3) H 12/31/20 02:26 COVID-19 [facility] [place] 02:11 SARS-CoV-2, RNA, NAAT NEGATIVE (NEGATIVE) 12/31/20 02:[address] abdomen pelvis initial read: Diffuse fatty infiltration, liver mildly enlarged. Gallbladder surgically absent. Bladder appears normal. Prominent vascular structures adjacent inferior tip of liver. No radiographic evidence of pancreatitis. Does not exclude pancreatitis and correlation with pancreatic enzymes is recommended. Hepatomegaly with fatty infiltration. CT head initial read: No ICH, mass-effect or edema. No skull fracture. CT cervical spine initial read: No evidence of fracture or malalignment. Chest x-ray as per my interpretation no congestion EKG as per my interpretation : Rate 135, sinus tachycardia, normal axis, ST depression anterolateral leads Code Status & VTE Plan VTE Prophylaxis Plan VTE Prophylaxis will be ordered: Yes
--- NOTE | 2020-12-31 06:53 | CT Scan Report ---
CT OF THE HEAD WITHOUT CONTRAST CLINICAL HISTORY: alcohol intoxication, fall, head injury COMPARISON STUDY: Head CT July 17, 2020. CT DOSE: 854.06 mGy.cm TECHNIQUE: Helical axial images of the head were obtained without IV contrast. Automated exposure con trol was utilized for the study. A dose lowering technique was utilized adhering to the principles o f ALARA. FINDINGS: No acute intracranial hemorrhage, midline shift or mass effect is present. The ventricular system is unremarkable. The basal cisterns are patent. No extra-axial collections are present. There are no findings to suggest acute dural sinus thrombosis or acute territorial infarct. No significant calvarial abnormalities are present. Visualized portions of the sinuses and mastoid air cells are mag ar. IMPRESSION: 1. No acute intracranial findings. 2. No calvarial fracture. ACT 112: Negative or not required by law. Electronically signed by: Remi Arizmendi M.D. 12/31/2020 6:52 AM
--- NOTE | 2020-12-31 06:56 | CT Scan Report ---
CT OF THE CERVICAL SPINE WITHOUT CONTRAST CLINICAL HISTORY: fall, head injury COMPARISON STUDY: Cervical spine CT July 17, 2020. TECHNIQUE: Helical axial images of the cervical spine were obtained without IV contrast. Sagittal a nd coronal reconstructions were viewed. Automated exposure control was utilized for the study. A do se lowering technique was utilized adhering to the principles of ALARA. FINDINGS: Alignment of the cervical spine is anatomic. Vertebral body heights are maintained. No acut e cervical spine fracture or subluxation is present. There is no prevertebral edema. Facet joints are intact. 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 Mild multi level disc space narrowing, osteophytosis and facet arthrosis within the cervical spine is noted. IMPRESSION: No acute cervical spine fracture or subluxation. ACT 112: Negative or not required by law. Electronically signed by: Remi Arizmendi M.D. 12/31/2020 6:54 AM
--- NOTE | 2020-12-31 06:57 | XRay Report ---
XR chest 1V portable CLINICAL HISTORY: epigastric pain COMPARISON STUDY: Chest CT October 08, 2020. Chest radiograph December 17, 2020. FINDINGS: Lung volumes are normal. Lungs are clear. There is no pneumothorax or pleural effusion. Car diac size is normal. Mediastinal contours are normal. There is no evidence for pulmonary edema. Incid ental note is made of several small calcified granulomas. IMPRESSION: No acute cardiopulmonary findings. ACT 112: Negative or not required by law. Electronically signed by: Remi Arizmendi M.D. 12/31/2020 6:56 AM
[2020-12-31] MEDS ORDERED: POTASSIUM CHLORIDE 10 MEQ TABCR PO ONE ×2 (07:00→08:30)
[2020-12-31] MEDS ORDERED: POTASSIUM CHLORIDE 20 MEQ in LACTATED RINGER'S 1,000 ML IV ONE (07:00)
[2020-12-31] MEDS: oxyCODONE HCL IR 5 MG TAB (IMMEDIATE RELEASE) PO PRN ×4 (07:25→23:30)
[2020-12-31] MEDS: LORazepam 2 MG/4 ML VIAL IV PRN ×2 (07:26→14:00)
--- NOTE | 2020-12-31 08:29 | CT Scan Report ---
ABDOMEN AND PELVIS CT WITHOUT CONTRAST CT DOSE: 281.77 mGy.cm HISTORY: Epigastric pain. pancreatitis, lactic acidosis TECHNIQUE: Multiaxial CT images of the abdomen and pelvis were performed without contrast. A dose lo wering technique was utilized adhering to the principles of ALARA. COMPARISON STUDY: Abdomen and pelvis CT 12/04/2020. FINDINGS: The lung bases are essentially clear. No pneumoperitoneum. No pneumatosis. No suspicious ly tic or blastic osseous lesions. Mildly circumferential thickening of the distal esophagus which is fl uid-filled. Severe hepatic steatosis, unchanged. Cholecystectomy. The liver remains enlarged. Scatter ed posterior peritoneal nodules persist. The spleen is normal in size. Normal adrenal glands. Small a mount of fluid adjacent to the pancreatic tail and stomach have slightly improved. There is a punctat e calcification within the right kidney, unchanged. No ureteral stones. No hydronephrosis. No retrope ritoneal lymphadenopathy. Normal caliber abdominal aorta. Tiny fat-containing umbilical hernia. The b ladder, uterus, bilateral adnexa are within normal limits. Suboptimal evaluation for bowel pathology due to the lack of intravenous and oral contrast. However, there is no definite bowel wall thickening or obstruction. Normal appendix. IMPRESSION: 1. Decrease in the peripancreatic fluid adjacent to the tail of the pancreas. 2. Peritoneal nodularity persists. 3. Severe hepatic steatosis, unchanged. 4. No evidence for bowel obstruction. ACT 112: Negative or not required by law. Electronically signed by: Richie Soria M.D. 12/31/2020 8:28 AM
[2020-12-31] MEDS ORDERED: POTASSIUM CHLORIDE CRTAB 20 MEQ TABCR PO STA (08:52)
[2020-12-31] MEDS ORDERED: POTASSIUM PHOS 3 MMOL/1 ML INFUSION IV STA (08:53)
[2020-12-31] MEDS: THIAMINE HCL 100 MG TAB PO SCH (08:56)
[2020-12-31] MEDS: busPIRone 5 MG TAB PO SCH ×3 (08:56→21:13)
[2020-12-31] MEDS: PANTOprazole 40 MG TAB PO SCH (08:57)
[2020-12-31] MEDS: FOLIC ACID 1 MG TAB PO SCH (08:57)
[2020-12-31] MEDS ORDERED: POTASSIUM PHOSPHATE 21 MMOL in SODIUM CHLORIDE 0.9% 500 ML IV ONE (09:00)
[2020-12-31] MEDS ORDERED: CEROVITE ADV FORMULA TAB PO SCH (09:00)
[2020-12-31] MEDS ORDERED: POTASSIUM CHLORIDE 20 MEQ in LACTATED RINGER'S 1,000 ML IV SCH (09:00)
[2020-12-31 09:46] LABS: Appearance Urine Cloudy (Clear); Bacteria Urine Automated 3+ (Negative); Blood Urine 1+ (Negative); Color Urine Dark Yellow; Epithelial Cell Urine Auto >30 /lpf (0-5); Glucose Urine UA Negative (Negative); Ketones Urine 4+ (Negative); Leukocyte Esterase Urine Negative (Negative); Nitrite Urine Positive (Negative); Protein Urine 2+ (Negative); Specific Gravity Urine 1.023 (1.000-1.030); Urobilinogen Urine Negative (Negative)
[2020-12-31 10:00] LABS: Bilirubin Urine 1+ (Negative)
[2020-12-31 10:06] LABS: RBC Urine Automated 0-4 /hpf (0-4)
[2020-12-31 10:07] LABS: Renal Epithelial Cells Urine 0-5 /lpf (0-5)
[2020-12-31 10:20] LABS: Base Excess VBG 6.7 mEq/L; pH VBG 7.45 (7.36-7.41)
[2020-12-31 10:52] LABS: BUN Creatinine Ratio 24.3 (10-20); Calcium 7.4 mg/dl (8.5-10.1); Creatinine Clr Calc Pharmacy 49.8 ml/min; Est GFR (African American) 63.1; Est GFR (Non-African American) 54.4; Potassium 3.4 mmol/L (3.5-5.1)
[2020-12-31 11:00] LABS: Troponin I 0.069 ng/ml (0-0.045)
[2020-12-31] MEDS: SODIUM CHLORIDE 0.9% 1000ML 1,000 ML IV SCH ×2 (14:02→19:20)
[2020-12-31 14:09] LABS: Albumin Globulin Ratio 0.9 (0.9-2); BUN Creatinine Ratio 25.3 (10-20); Bilirubin,Total 2.2 mg/dl (0.2-1); Calcium 7.2 mg/dl (8.5-10.1); Creatinine Clr Calc Pharmacy 58.3 ml/min; Est GFR (African American) 76.4; Est GFR (Non-African American) 65.9; Globulin 3.4 gm/dl (2.5-4.0); Potassium 4.4 mmol/L (3.5-5.1); Total Protein 6.4 gm/dl (6.4-8.2)
[2020-12-31] MEDS: LORazepam 1 MG/2 ML VIAL IV PRN (15:39)
[2021-01-01] MEDS: SODIUM CHLORIDE 0.9% 1000ML 1,000 ML IV SCH ×5 (00:19→22:41)
[2021-01-01] MEDS: HEPARIN SOD 5,000 UNIT/0.5 ML VIAL SQ SCH ×3 (05:03→21:19)
[2021-01-01] MEDS: chlordiazePOXIDE HCl 25 MG CAP PO SCH ×4 (05:03→21:18)
[2021-01-01] MEDS: LORazepam 1 MG/2 ML VIAL IV PRN ×2 (05:04→11:18)
--- NOTE | 2021-01-01 06:09 | Electrocardiogram Report ---
Test Reason : Blood Pressure : / mmHG Vent. Rate : 125 BPM Atrial Rate : 125 BPM P-R Int : 128 ms QRS Dur : 084 ms QT Int : 416 ms P-R-T Axes : 018 048 043 degrees QTc Int : [address] depression, consider subendocardial injury Prolonged QT Abnormal ECG When compared with ECG of 19-DEC-2020 06:35, Vent. rate has increased BY [address] now depressed in Inferior leads ST now depressed in Anterior leads QT has lengthened Confirmed by Ugo Pham ([id number]) on 01/01/2021 6:08:51 AM Referred By: REFERRED SELF Confirmed By:Ugo Pham
[2021-01-01 06:34] LABS: Basophils # (auto) 0.02 K/uL (0-0.2); Basophils % (auto) 0.5 %; Eosinophils # (auto) 0.01 K/uL (0-0.5); Eosinophils % (auto) 0.3 %; Giant Platelets 1+; Hematocrit (blood only) 31.4 % (37-47); Hemoglobin 10.3 g/dL (12.0-16.0); Immature Granulocytes # (auto) 0.02 K/uL (0.00-0.02); Immature Granulocytes % (auto) 0.5 %; Lymphocytes # (auto) 1.15 K/uL (1.2-3.4); Lymphocytes % (auto) 28.8 %; Mean Corpuscular Hemoglobin 32.2 pg (25-34); Mean Corpuscular Hgb Conc 32.8 g/dL (32-36); Mean Corpuscular Volume 98.1 fL (80-100); Mean Platelet Volume 9.7 fL (7.4-10.4); Monocytes % (auto) 7.5 %; Neutrophils # (auto) 2.49 K/uL (1.4-6.5); Neutrophils % (auto) 62.4 %; Pappenheimer Bodies 1+; Platelet Count 143 K/uL (130-400); Platelet Estimate Normal (Normal); RDW Coefficient of Variation 12.6 % (11.5-14.5); RDW Standard Deviation 44.8 fL (36.4-46.3); White Blood Count 3.99 K/uL (4.8-10.8)
[2021-01-01 06:50] LABS: Albumin Globulin Ratio 0.8 (0.9-2); Albumin Level 2.7 gm/dl (3.4-5.0); BUN Creatinine Ratio 17.9 (10-20); Bilirubin,Total 1.6 mg/dl (0.2-1); Calcium 7.2 mg/dl (8.5-10.1); Creatinine Clr Calc Pharmacy 103.8 ml/min; Est GFR (African American) 131.9; Est GFR (Non-African American) 113.8; Globulin 3.2 gm/dl (2.5-4.0); Potassium 3.7 mmol/L (3.5-5.1); Total Protein 5.9 gm/dl (6.4-8.2)
[2021-01-01] MEDS: busPIRone 5 MG TAB PO SCH ×3 (09:09→21:19)
[2021-01-01] MEDS: THIAMINE HCL 100 MG TAB PO SCH (09:10)
[2021-01-01] MEDS: FOLIC ACID 1 MG TAB PO SCH (09:10)
[2021-01-01] MEDS: PANTOprazole 40 MG TAB PO SCH (09:10)
[2021-01-01] MEDS: oxyCODONE HCL IR 5 MG TAB (IMMEDIATE RELEASE) PO PRN ×3 (09:12→21:18)
--- NOTE | 2021-01-01 14:16 | Hospitalist Progress Note ---
Date of Service January 01, 2021 Assessment & Plan (1) Acute alcoholic pancreatitis: Alcohol intoxication/concern for withdrawal Recurrent pancreatitis Acute renal failure - resolved Hypokalemia - resolved Elevated LFTs - resolved Urinary tract infection History of recurrent pancreatitis History of alcohol abuse History of pseudocyst/necrosis Status post axios stent placement; removed on November 20 History of COVID-19 History of hypertension History of nonischemic History of migraine History of anxiety/depression Patient is doing okay this morning. We will continue with the CIWA protocol. Currently remains on clear liquid diet. Continues to have 8 out of 10 abdominal pain and feeling nauseous. We will continue with maintenance IV fluids. Patient did endorse dysuria today. Will start on ceftriaxone 1 g daily. Follow- up urine sensitivities. Admission and Anticipated Discharge Date Admission Date: December 31, 2020 Subjective Patient feeling better this morning. Reports she did have episode of vomiting last evening and remains nauseous but feels improved. Has been tolerating clear liquid diet. Denies any chest pain or shortness of breath. Denies any abdominal pain, diarrhea or dysuria. Does have a and tremors. States she heard some kids voices last night. Does report headache but no dizziness. Review of Systems Review of Systems: All systems reviewed & are unremarkable except as noted in HPI & below Physical Exam Physical Exam: General: A&Ox3 HENT: NCAT, MMM, EOMI Eyes: PERRLA Neck: Supple, normal range of motion CVS: normal rate and rhythm Resp: b/l good breath sonds Abdomen: Soft, ND/NT, +BS Extremities: No c/c/e Neuro: face symmetric, no focal deficit, b/l upper extremity tremors Skin: warm and dry, no rashes/lesions/errythema MSK: no joint swelling/erythema Results & Data Results & Data ([facility]) Vital Signs (Past 12 Hours) Vital Signs Temp Pulse Pulse Pulse Resp BP BP 01/01/21 11:26 87 01/01/21 11:09 36.8 C 111 H 20 137/91 01/01/21 07:56 37.0 C 96 H 17 128/91 01/01/21 04:35 36.9 C 107 H 22 146/96 H 01/01/21 03:26 37 C 110 H 18 136/86 Pulse Ox 01/01/21 11:26 01/01/21 11:09 01/01/21 07:56 97 01/01/21 04:35 01/01/21 03:26 93 (1) Acute alcoholic pancreatitis Acute pancreatitis complication: no infection or necrosis Qualified Code(s): K85.20 - Alcohol induced acute pancreatitis without necrosis or infection
[2021-01-01] MEDS: LORazepam 2 MG/4 ML VIAL IV PRN (19:26)
[2021-01-02] MEDS: LORazepam 1 MG/2 ML VIAL IV PRN ×3 (00:34→19:19)
[2021-01-02] MEDS: oxyCODONE HCL IR 5 MG TAB (IMMEDIATE RELEASE) PO PRN ×4 (04:01→22:04)
[2021-01-02] MEDS: SODIUM CHLORIDE 0.9% 1000ML 1,000 ML IV SCH ×5 (04:11→22:03)
[2021-01-02] MEDS: HEPARIN SOD 5,000 UNIT/0.5 ML VIAL SQ SCH ×3 (05:54→22:05)
[2021-01-02] MEDS: THIAMINE HCL 100 MG TAB PO SCH (08:44)
[2021-01-02] MEDS: PANTOprazole 40 MG TAB PO SCH (08:44)
[2021-01-02] MEDS: busPIRone 5 MG TAB PO SCH ×3 (08:45→22:05)
[2021-01-02] MEDS: FOLIC ACID 1 MG TAB PO SCH (08:45)
[2021-01-02 08:53] LABS: Hemoglobin 11.1 g/dL (12.0-16.0); Mean Corpuscular Hemoglobin 32.3 pg (25-34); Mean Corpuscular Hgb Conc 33.6 g/dL (32-36); Mean Corpuscular Volume 95.9 fL (80-100); Platelet Count 147 K/uL (130-400); RDW Coefficient of Variation 12.3 % (11.5-14.5); RDW Standard Deviation 42.9 fL (36.4-46.3); Red Blood Count 3.44 M/uL (4.2-5.4); White Blood Count 4.37 K/uL (4.8-10.8)
[2021-01-02] MEDS ORDERED: cefTRIAXone SODIUM 1,000 MG in DEXTROSE 5% 50 ML IV SCH (09:00)
[2021-01-02 09:34] LABS: Calcium 7.8 mg/dl (8.5-10.1); Creatinine Clr Calc Pharmacy 109.4 ml/min; Est GFR (African American) 134.2; Est GFR (Non-African American) 115.8; Potassium 2.7 mmol/L (3.5-5.1)
--- NOTE | 2021-01-02 15:44 | Hospitalist Progress Note ---
Date of Service January 02, 2021 Assessment & Plan (1) Acute alcoholic pancreatitis: Alcohol intoxication/concern for withdrawal Recurrent pancreatitis Acute renal failure - resolved Elevated LFTs - resolved Urinary tract infection History of recurrent pancreatitis History of alcohol abuse History of pseudocyst/necrosis Status post axios stent placement; removed on November 20 History of COVID-19 History of hypertension History of migraine History of anxiety/depression Symptoms improving Was started on Librium. Will reduce librium to 5mg bid tomorrow Continue [facility] protocol Counseled extensively on need for alcohol rehab. Patient reports that she has gotten resources from the case resolution specialist. Patient reports that she will follow up with psychiatry as well to help her with this as well as anxiety management Hypokalemic this morning with potassium of 2.7. Replete aggressively. Monitor electrolytes Reduce IV fluids to 150 cc/h Urine cultures growing E.coli and enterococcus Based on sensitivities, will change antibiotics from ceftriaxone to n itrofurantoin for 5 days DVT ppx- hep sq Admission and Anticipated Discharge Date Admission Date: December 31, 2020 Subjective Patient seen and examined. Patient reports feeling better today. Vomiting is resolved. Nausea and abd pain improved. Reports intermittent anxiety. Denies hallucinations, headaches Dysuria resolved. Denied freq, urgency, hematuria Physical Exam Constitutional: + well hydrated; no acute distress Eyes: PERRL, conjunctivae normal, anicteric sclerae ENMT: external ear and nose normal, oropharynx normal Respiratory: normal respiratory effort, lungs clear to auscultation Cardiovascular: RRR, no murmur, no edema Gastrointestinal (Abdomen): Inspection/Auscultation: abdomen normal to inspection and normal bowel sounds; abdomen not distended Percussion/Palpat ion: + abdomen tender (Mild epigastric tenderness) Musculoskeletal: no cyanosis or clubbing, extremities motor strength 5/5 Neurologic: PERRL, EOMI, accommodation nl, no face palsy, no dysarthria Psychiatric: A+Ox3, euthymic affect Results & Data Results & Data ([facility]) Vital Signs (Past 12 Hours) Vital Signs Temp Pulse Pulse Resp BP Pulse Ox 01/02/21 11:41 37.2 C 80 18 138/102 H 96 01/02/21 08:35 36.7 C 108 H 18 132/96 100 01/02/21 07:20 79 01/02/21 03:45 36.1 C L 82 16 135/97 100 Laboratory Results Laboratory Results - last 24 hr 01/02/21 01/02/21 08:30 08:30 WBC 4.37 L RBC 3.44 L Hgb 11.1 L Hct 33.0 L MCV 95.9 MCH 32.3 MCHC 33.6 RDW Std Deviation 42.9 RDW Coeff of Hanna 12.3 Plt Count 147 MPV 10.0 Sodium 137 Potassium 2.7 L D Chloride 101 Carbon Dioxide 30 Anion Gap 5.0 BUN 3 L D Creatinine 0.56 L Est Cr Clr Drug Dosing 109.4 Est GFR ( Amer) 134.2 Est GFR (Non-Af Amer) 115.8 BUN/Creatinine Ratio 6.0 L Glucose 143 H Calcium 7.8 L (1) Acute alcoholic pancreatitis Acute pancreatitis complication: no infection or necrosis Qualified Code(s): K85.20 - Alcohol induced acute pancreatitis without necrosis or infection
[2021-01-02] MEDS ORDERED: POTASSIUM CHLORIDE PWD 20 MEQ PACK PO ONE (16:15)
[2021-01-02] MEDS: POTASSIUM CHLORIDE / WTR 10 MEQ/100 ML PLCT IV SCH ×4 (16:37→20:24)
[2021-01-02] MEDS: NITROFURANTOIN MONOHYDRATE 100 MG CAP PO SCH (17:15)
[2021-01-02 23:45] VITALS: TEMP 97.9
[2021-01-03] MEDS: LORazepam 2 MG/4 ML VIAL IV PRN (00:50)
[2021-01-03] MEDS: oxyCODONE HCL IR 5 MG TAB (IMMEDIATE RELEASE) PO PRN (05:49)
[2021-01-03] MEDS: SODIUM CHLORIDE 0.9% 1000ML 1,000 ML IV SCH (05:50)
[2021-01-03 06:18] LABS: Hemoglobin 11.1 g/dL (12.0-16.0); Mean Corpuscular Hemoglobin 32.2 pg (25-34); Mean Corpuscular Hgb Conc 33.6 g/dL (32-36); Mean Corpuscular Volume 95.7 fL (80-100); Mean Platelet Volume 10.2 fL (7.4-10.4); Platelet Count 178 K/uL (130-400); RDW Coefficient of Variation 12.4 % (11.5-14.5); RDW Standard Deviation 42.9 fL (36.4-46.3); Red Blood Count 3.45 M/uL (4.2-5.4); White Blood Count 3.55 K/uL (4.8-10.8)
[2021-01-03 06:47] LABS: BUN Creatinine Ratio 4.6 (10-20); Calcium 7.8 mg/dl (8.5-10.1); Creatinine Clr Calc Pharmacy 102.1 ml/min; Est GFR (African American) 131.2; Est GFR (Non-African American) 113.2; Magnesium 1.1 mg/dl (1.8-2.4); Phosphorus 2.2 mg/dl (2.5-4.9); Potassium 3.1 mmol/L (3.5-5.1)
[2021-01-03] MEDS: HEPARIN SOD 5,000 UNIT/0.5 ML VIAL SQ SCH (06:59)
[2021-01-03 07:14] VITALS: BP 137/103; O2SAT 93
[2021-01-03] MEDS: NITROFURANTOIN MONOHYDRATE 100 MG CAP PO SCH (07:47)
[2021-01-03] MEDS ORDERED: POTASSIUM CHLORIDE / WTR 10 MEQ/100 ML PLCT IV SCH (08:00)
[2021-01-03] MEDS: busPIRone 5 MG TAB PO SCH (08:05)
[2021-01-03] MEDS: PANTOprazole 40 MG TAB PO SCH (08:06)
[2021-01-03] MEDS: THIAMINE HCL 100 MG TAB PO SCH (08:06)
[2021-01-03] MEDS: FOLIC ACID 1 MG TAB PO SCH (08:06)
[2021-01-03] MEDS ORDERED: chlordiazePOXIDE HCl 5 MG CAP PO SCH (09:00)
[2021-01-03 11:27] VITALS: PULSE 93
--- NOTE | 2021-01-03 15:50 | Discharge Summary ---
Date of Service January 03, 2021 Admission HPI Per Admitting Provider History obtained from patient and records. Medical history significant for nonischemic cardiomyopathy (EF 55 to 60 TTE 2019), HTN, recurrent pancreatitis, history pancreatic pseudocyst/necrosis status post endoscopic necrosectomy, narcotic addiction as per records, chronic anemia (baseline hemoglobin 10-11), alcohol abuse. Monthly admissions since May 2020 for recurrent pancreatitis and alcohol withdrawal. Recent confinement last month. Patient began drinking heavily again a few days ago. She subsequently noted stabbing epigastric pain reminiscent of pancreatitis attack followed by nausea and emesis. No diarrhea symptoms. Poor appetite. No actual chest pain or shortness of breath. Heart rate noted to be 150s upon arrival of EMS. Patient brought to the ER. Patient had a fall at the ER while going to the commode. Possible head trauma without LOC. 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 Admission Exam Per Admitting Provider Constitutional: WD/WN, vitals as above Eyes: PERRL, conjunctivae normal, anicteric sclerae ENMT: external ear and nose normal, oropharynx normal Respiratory: normal respiratory effort, lungs clear to auscultation Cardiovascular: Rate/Rhythm: regular rhythm and + tachycardic Vessels: normal peripheral pulses Extremities: no edema Gastrointestinal (Abdomen): Inspection/Auscultation: normal bowel sounds Percussion/Palpation: + abdomen tender (Epigastric/RUQ) and abdomen soft; no hepatosplenomegaly Musculoskeletal: no cyanosis or clubbing, extremities motor strength 5/5 Skin: no rashes, warm and dry Neurologic: PERRL, EOMI, accommodation nl, no face palsy, no dysarthria Psychiatric: A+Ox3, euthymic affect Principal Diagnosis Acute alcoholic pancreatitis Alcohol withdrawal Acute kidney injury Urinary tract infection Discharge Exam Constitutional + well hydrated; no acute distress Eyes PERRL, conjunctivae normal, anicteric sclerae ENMT external ear and nose normal, oropharynx normal Respiratory normal respiratory effort, lungs clear to auscultation Cardiovascular RRR, no murmur, no edema Gastrointestinal (Abdomen) normal bowel sounds, soft, nontender, no hepatosplenomegaly Musculoskeletal no cyanosis or clubbing, extremities motor strength 5/5 Neurologic PERRL, EOMI, accommodation nl, no face palsy, no dysarthria Psychiatric A+Ox3, euthymic affect Discharge Data Allergies Allergy/AdvReac Type Severity Reaction Status Date / Time tramadol Allergy Severe Seizure Verified 12/31/20 02:11 gabapentin Allergy Intermediate Hallucinati Verified 12/31/20 02:11 ng ketorolac [From Toradol] Allergy Mild shaky, Verified 12/31/20 02:11 dizzy, uneasy feeling Consultations 12/31/20 04:11 ED Decision to Admit Stat 12/31/20 06:18 Consult Case Management - Discharge Planning Routine Ordered Studies 12/31/20 03:11 CT abd pelvis wo con Urgent The lung bases are essentially clear. No pneumoperitoneum. No pneumatosis. No suspicious lytic or blastic osseous lesions. Mildly circumferential thickening of the distal esophagus which is fluid-filled. Severe hepatic steatosis, unchanged. Cholecystectomy. The liver remains enlarged. Scattered posterior peritoneal nodules persist. The spleen is normal in size. Normal adrenal glands. Small amount of fluid adjacent to the pancreatic tail and stomach have slightly improved. There is a punctate calcification within the right kidney, unchanged. No ureteral stones. No hydronephrosis. No retroperitoneal lymphadenopathy. Normal caliber abdominal aorta. Tiny fat-containing umbilical hernia. The bladder, uterus, bilateral adnexa are within normal limits. Suboptimal evaluation for bowel pathology due to the lack of intravenous and oral contrast. However, there is no definite bowel wall thickening or obstruction. Normal appendix. IMPRESSION: 1. Decrease in the peripancreatic fluid adjacent to the tail of the pancreas. 2. Peritoneal nodularity persists. 3. Severe hepatic steatosis, unchanged. 4. No evidence for bowel obstruction. CT cervical spine wo con Urgent CT head/brain wo con Urgent Hospital Course (1) Acute alcoholic pancreatitis: Alcohol intoxication/concern for withdrawal Recurrent pancreatitis Acute renal failure - resolved Elevated LFTs - resolved Urinary tract infection History of recurrent pancreatitis History of alcohol abuse History of pseudocyst/necrosis Status post axios stent placement; removed on November 20 History of COVID-19 History of hypertension History of migraine History of anxiety/depression Patient was admitted for epigastric pain associated with nausea and vomiting. CT scan abdomen and pelvis show pancreatitis Patient had resumed drinking after recent discharge She was started on medical management of acute pancreatitis She was also started on management for alcohol withdrawal while inpatient. She was provided resources to aid with alcohol use disorder Had ROXANA on admission which had resolved She also had dysuria and urine culture showed E. coli and Enterococcus. She was started on nitrofurantoin based on sensitivities Patient symptoms resolved. However, patient was to have a mild withdrawal symptoms today and was on Librium taper. This morning, she reported that her mom was just admitted to the hospital and need surgery and she needed to go see her mom right away. I discussed with patient extensively on need to stay today so that we can taper off the Librium as she was still having withdrawal symptoms. She declined further treatment after understanding risk and benefit. Patient signed out AGAINST MEDICAL ADVICE Total Time Total Time Spent Total Time Spent (In Minutes): 45 Total Time Includes: Examination of the Patient, Discharge Planning and Medication Reconciliation Discharge Plan Discharge Items Reason For Visit: TACHY, PANCREATITIS Follow-up/Referrals: Marianela Arroyo MD [Primary Care Provider] - Medications and DC Order Prescriptions: New nitrofurantoin monohyd/m-cryst 100 mg Capsule 100 mg PO BID@0700,1900 4 Days Qty: 8 RF: 0 Continued buspirone 5 mg tablet 5 mg PO TID RF: 0 pantoprazole 40 mg tablet,delayed release (DR/EC) 40 mg PO DAILY RF: 0 thiamine HCl (vitamin B1) [Vitamin B-1] 100 mg Tablet 100 mg PO QAM Qty: 30 RF: 0 folic acid 1 mg Tablet 1 mg PO QAM Qty: 30 RF: 0 Multivitamin Women 50 Plus 8 mg iron-400 mcg-300 mcg tablet 1 tab PO DAILY Qty: 90 RF: 0 naltrexone 50 mg tablet 50 mg PO DAILY RF: 0 Admission Data Admit Date/Time: 12/31/20 05:23 Attending Provider: Elisha Green I. Admit Provider: Yanick Chen Primary Care Provider: Marianela Arroyo Other Providers: Yanick Chen ; Kim Sewell Other Interventions: Discharge Summary Assessment (RN) Last Done: 01/03/21 11:25
== END 2021-01-03 11:28 | disposition left against medical advice (07) | DRG 439 ==
LOC: ED 01:54 → SUATTDRO 05:23 → 2S 05:23

== ENCOUNTER 2021-02-03 13:07 | Inpatient (IN) ==
[2021-02-03] MEDS ORDERED: THIAMINE HCL 200 MG in SODIUM CHLORIDE 0.9% 50 ML IV STA (13:37)
[2021-02-03] MEDS ORDERED: ONDANSETRON INJ 2 MG/ML 2 ML VIAL IV STA (13:37)
[2021-02-03] MEDS ORDERED: FAMOTIDINE 20MG IV PUSH 20 MG/5 ML SYR IV STA (13:37)
[2021-02-03] MEDS ORDERED: SODIUM CHLORIDE 0.9% 1000ML 1,000 ML IV ONE ×2 (13:37→15:05)
--- NOTE | 2021-02-03 13:43 | Emergency Department Note ---
Impression & Plan Alcohol withdrawal syndrome, Alcoholic intoxication, Urinary tract infection, Acute epigastric pain ED Provider Note NAME: CHAD BAUM AGE: 40 SEX: F : 1980 ARRIVES VIA: Walk-In INFORMANT: Patient, the significant other ED PROVIDER(S): Carlos Alberto Sin DO CHIEF COMPLAINT: Alcohol withdrawal HPI: The patient is a 40-year-old female who presented to the emergency department with her significant other for an evaluation of alcohol withdrawal. The patient has a history of alcoholism. The patient has been drinking for many years. Along with her significant other they drank a handle of liquor just about every day. The patient and her significant other state that symptoms are much worsened ever since the pandemic began and they have been forced to stay home a lot more. The patient herself states that she was able to stop drinking for many weeks but then approximately 7 days ago started drinking again with her significant other. The patient last had alcohol this morning around 5 AM. She also has a history of alcohol withdrawal and has had pancreatitis in the past. She states that she is noticed nausea as well as upper abdominal pain. She denies having any fever. She does not complain of a cough. The patient has not had any seizures over the last 24 hours. Neither the patient nor her spouse have been able to engage in an outpatient treatment plan. The patient significant other was prescribed some Librium recently. They both took some Librium prior to coming to the emergency department because of fear of significant withdrawal. The patient's symptoms are moderate to severe at this time. Along with her significant other she does have plans on quitting drinking but would like some help and this is why they presented to the emergency department today. ROS: See above HPI for pertinent positives & negatives. A total of 10 systems reviewed and were otherwise negative. PAST MEDICAL HISTORY: See Below PAST SURGICAL HISTORY: See Below FAMILY HISTORY: See Below SOCIAL HISTORY: See Below HOME MEDICATIONS: See Below ALLERGIES: See Below VITALS: See Below PHYSICAL EXAMINATION: GENERAL: The patient is awake and alert. She is somewhat anxious appearing. EYES: The conjunctivae are clear. The pupils are round and reactive. EARS, NOSE, MOUTH AND THROAT: The nose is without any evidence of any deformity. NECK: The neck is nontender and supple. RESPIRATORY: Normal respiratory effort is noted there is no evidence of wheezing rhonchi or rales CARDIOVASCULAR: Tachycardic rate with regular rhythm was noted. No definite murmur was noted. GASTROINTESTINAL: The abdomen is soft and nondistended. There is diffuse tenderness to palpation but no guarding rigidity. MUSCULOSKELETAL/EXTREMITIES: There is no evidence of gross deformity full range of motion is noted in the hips and shoulders. SKIN: There is no obvious evidence of any rash. There are no petechiae, pallor or cyanosis noted. NEUROLOGIC: Patient is awake alert and oriented x3 strength is symmetric pat ellar reflexes are 2+ bilaterally PSYCH: The patient makes good eye contact for most the evaluation. The patient is currently denying any suicidal homicidal ideation. MEDICAL DECISION MAKING: The patient is a 40-year-old female who presented to the emergency department for an evaluation of alcohol withdrawal. The patient's alcohol is very elevated but during her time in the emergency department she started to have signs of withdrawal. She was treated with IV fluids IV antibiotics for presumed urinary tract infection as well as IV Ativan. She was reevaluated multiple times. Her condition continued to worsen. She did have significant epigastric pain and has a history of pancreatitis but her lipase at this time is not elevated. I discussed the patient's condition with her. I do not feel the patient would be safe for discharge at this time. [facility] have agreed to evaluate the patient in the emergency department for further management and disposition. Triage Nursing notes reviewed. Prior medical records reviewed Vital Signs: reviewed and remarkable for tachycardia and hypertension. Differential diagnosis: Alcohol intoxication, toxicologic, infection, hypoglycemia, electrolyte abnormalities, cardiac sources, intracerebral event, neurologic, trauma, as well as other pathologies. ER treatment provided: See below Diagnostics interpreted by me: ECG: EKG was obtained in the emergency department. My interpretation is sinus tachycardia at 128 bpm. There is no ectopy. Diffuse ST segment abnormalities were noted. This was compared to a tracing from December 312020. No significant changes were noted. Cardiac Monitoring: An order was placed for continuous cardiac monitoring. The monitor shows a rate of 150 bpm with sinus tachycardia rhythm. Laboratory studies: As stated above and show below. Imaging studies: See below Consultation(s): I discussed this case with Seamus who [facility] They will evaluate the patient in the emergency department for further management and disposition. ED COURSE: Procedures: none PDMP:reviewed and no issues Critical Care: I have personally spent greater than 45 minutes of critical care time in the direct management of this patient. This includes bedside care, interpretation of diagnostic studies, and testing, discussion with consultants, patient, and family members, and other required patient management activities. This 45 minutes is in excess of all separately billable procedures. Past Med/Surg History Medical History (Updated 02/03/21 @ 19:25 by Carlos Alberto Sin DO) Alcohol abuse Depression History of COVID-19 diagnosed 10/09/2020 @ [facility]--asymptomatic at first then developed cough, sore throat, low grade fever for 1-2 days--not hospitalized History of kidney stones History of narcotic addiction Hypertension Migraine Nonischemic cardiomyopathy Pancreatic pseudocyst 08/2020 - AXIOS stent placement for pancreatic drainage, removed 11/30/20 Pancreatitis Surgical History H/O esophagogastroduodenoscopy Endoscopic US hx of endoscopic necrosectomy 08/2020 History of colposcopy History of dental surgery History of laparoscopic cholecystectomy History of tooth extraction History of wisdom tooth extraction Family History Grandfather (Paternal) Diabetes Grandmother (Maternal) Diabetes Mother Family history of diabetes mellitus Other No family history of adverse response to anesthesia Social History Smoking Status: Never smoker Second Hand Exposure: No; Hx Alcohol Use: Yes Alcohol type: wine and hard liquor Alcohol Intake Frequency: 4 or More x per/Week Hx Substance Use: No Preferred Language: Australian Communication Ability: Effective Juvenile Justice Specialist Required: No Beliefs That Will Affect Care: None marital status: Current Living Situation: Spouse and Family Current Living Situation Comment: Lives with and 5 kids How many Children do You have: 5 Feels Safe at Home: Yes Assistive Devices: None Allergies Allergies Allergy/AdvReac Type Severity Reaction Status Date / Time tramadol Allergy Severe Seizure Verified 02/03/21 15:11 gabapentin Allergy Intermediate Hallucinati Verified 02/03/21 15:11 ng ketorolac [From Toradol] Allergy Mild shaky, Verified 02/03/21 15:11 dizzy, uneasy feeling Home Meds Home Medications Medication Instructions Recorded Confirmed chlordiazepoxide HCl [Librium] 50 mg PO ONCE 02/03/21 02/03/21 Results & Data (ED) Vital Signs Vital Signs - 24 hr 02/03/21 13:14 02/03/21 14:19 02/03/21 14:30 Temperature 36.5 C Temperature Source Temporal Artery Scan Pulse Rate 157 H 135 H 126 H Pulse Rate from SpO2 Sensor Respiratory Rate 18 18 18 Respiratory Effort / Characteristics Non-Labored Respiratory Depth Normal Blood Pressure 119/76 127/103 H 138/98 Blood Pressure Mean 90 111 111 Pulse Oximetry 96 Oxygen Delivery Method Sepsis Recent Fever Within 48 Hours No Sepsis New/Unexplained Change in Mental Status No Sepsis Action Taken by Nursing No Action Required 02/03/21 14:40 02/03/21 14:50 02/03/21 15:00 Temperature Temperature Source Pulse Rate 127 H 125 H 126 H Pulse Rate from SpO2 Sensor Respiratory Rate 26 H 25 H 23 Respiratory Effort / Characteristics Respiratory Depth Blood Pressure 146/106 H Blood Pressure Mean 119 Pulse Oximetry Oxygen Delivery Method Sepsis Recent Fever Within 48 Hours Sepsis New/Unexplained Change in Mental Status Sepsis Action Taken by Nursing 02/03/21 15:01 02/03/21 15:10 02/03/21 15:20 Temperature Temperature Source Pulse Rate 122 H 130 H 119 H Pulse Rate from SpO2 Sensor Respiratory Rate 24 23 15 Respiratory Effort / Characteristics Respiratory Depth Blood Pressure Blood Pressure Mean Pulse Oximetry Oxygen Delivery Method Sepsis Recent Fever Within 48 Hours Sepsis New/Unexplained Change in Mental Status Sepsis Action Taken by Nursing 02/03/21 15:30 02/03/21 15:31 02/03/21 15:40 Temperature Temperature Source Pulse Rate 127 H 124 H 131 H Pulse Rate from SpO2 Sensor Respiratory Rate 17 21 17 Respiratory Effort / Characteristics Respiratory Depth Blood Pressure 140/107 H Blood Pressure Mean 118 Pulse Oximetry Oxygen Delivery Method Sepsis Recent Fever Within 48 Hours Sepsis New/Unexplained Change in Mental Status Sepsis Action Taken by Nursing 02/03/21 15:50 02/03/21 16:00 02/03/21 16:01 Temperature Temperature Source Pulse Rate 137 H 131 H 137 H Pulse Rate from SpO2 Sensor Respiratory Rate 18 20 20 Respiratory Effort / Characteristics Respiratory Depth Blood Pressure 158/100 H Blood Pressure Mean 119 Pulse Oximetry Oxygen Delivery Method Sepsis Recent Fever Within 48 Hours Sepsis New/Unexplained Change in Mental Status Sepsis Action Taken by Nursing 02/03/21 16:10 02/03/21 16:20 02/03/21 16:30 Temperature Temperature Source Pulse Rate 130 H 142 H 138 H Pulse Rate from SpO2 Sensor Respiratory Rate 26 H 16 21 Respiratory Effort / Characteristics Respiratory Depth Blood Pressure 142/103 H Blood Pressure Mean 116 Pulse Oximetry Oxygen Delivery Method Sepsis Recent Fever Within 48 Hours Sepsis New/Unexplained Change in Mental Status Sepsis Action Taken by Nursing 02/03/21 16:31 02/03/21 16:40 02/03/21 16:50 Temperature Temperature Source Pulse Rate 130 H 131 H 155 H Pulse Rate from SpO2 Sensor Respiratory Rate 25 H 25 H 19 Respiratory Effort / Characteristics Respiratory Depth Blood Pressure Blood Pressure Mean Pulse Oximetry Oxygen Delivery Method Sepsis Recent Fever Within 48 Hours Sepsis New/Unexplained Change in Mental Status Sepsis Action Taken by Nursing 02/03/21 17:00 02/03/21 17:01 02/03/21 17:10 Temperature Temperature Source Pulse Rate 136 H 145 H 138 H Pulse Rate from SpO2 Sensor Respiratory Rate 28 H 15 25 H Respiratory Effort / Characteristics Respiratory Depth Blood Pressure 154/101 H Blood Pressure Mean 118 Pulse Oximetry Oxygen Delivery Method Sepsis Recent Fever Within 48 Hours Sepsis New/Unexplained Change in Mental Status Sepsis Action Taken by Nursing 02/03/21 17:20 02/03/21 17:30 02/03/21 17:31 Temperature Temperature Source Pulse Rate 144 H 148 H 146 H Pulse Rate from SpO2 Sensor Respiratory Rate 30 H 23 25 H Respiratory Effort / Characteristics Respiratory Depth Blood Pressure 148/95 H Blood Pressure Mean 112 Pulse Oximetry Oxygen Delivery Method Sepsis Recent Fever Within 48 Hours Sepsis New/Unexplained Change in Mental Status Sepsis Action Taken by Nursing 02/03/21 17:40 02/03/21 17:50 02/03/21 18:00 Temperature Temperature Source Pulse Rate 145 H 140 H 152 H Pulse Rate from SpO2 Sensor Respiratory Rate 17 25 H 18 Respiratory Effort / Characteristics Respiratory Depth Blood Pressure 145/79 H Blood Pressure Mean 101 Pulse Oximetry Oxygen Delivery Method Sepsis Recent Fever Within 48 Hours Sepsis New/Unexplained Change in Mental Status Sepsis Action Taken by Nursing 02/03/21 18:01 02/03/21 18:10 02/03/21 18:20 Temperature Temperature Source Pulse Rate 152 H 143 H 151 H Pulse Rate from SpO2 Sensor Respiratory Rate 17 30 H 14 Respiratory Effort / Characteristics Respiratory Depth Blood Pressure Blood Pressure Mean Pulse Oximetry Oxygen Delivery Method Sepsis Recent Fever Within 48 Hours Sepsis New/Unexplained Change in Mental Status Sepsis Action Taken by Nursing 02/03/21 18:30 02/03/21 18:31 02/03/21 18:40 Temperature Temperature Source Pulse Rate 146 H 157 H 149 H Pulse Rate from SpO2 Sensor Respiratory Rate 26 H 14 23 Respiratory Effort / Characteristics Respiratory Depth Blood Pressure 156/105 H Blood Pressure Mean 122 Pulse Oximetry Oxygen Delivery Method Sepsis Recent Fever Within 48 Hours Sepsis New/Unexplained Change in Mental Status Sepsis Action Taken by Nursing 02/03/21 18:50 02/03/21 19:11 Temperature Temperature Source Pulse Rate 166 H 160 H Pulse Rate from SpO2 Sensor 155 H Respiratory Rate 15 18 Respiratory Effort / Characteristics Respiratory Depth Blood Pressure 161/114 H Blood Pressure Mean 129 Pulse Oximetry 95 Oxygen Delivery Method Room Air Sepsis Recent Fever Within 48 Hours Sepsis New/Unexplained Change in Mental Status Sepsis Action Taken by Skilled Nursing Medications Current Medication List: was personally reviewed by me Laboratory Data Attestation: I reviewed the patient's lab results. Result diagrams: 02/03/21 13:56 02/03/21 13:56 Lab Results 02/03/21 02/03/21 02/03/21 Range/Units 13:55 13:56 13:56 WBC 7.29 (4.8-10.8) K/uL RBC 4.73 (4.2-5.4) M/uL Hgb 15.2 (12.0-16.0) g/dL Hct 43.7 (37-47) % MCV 92.4 (80-100) fL MCH 32.1 (25-34) pg MCHC 34.8 (32-36) g/dL RDW Std Deviation 43.5 (36.4-46.3) fL RDW Coeff of Hanna 12.8 (11.5-14.5) % Plt Count 451 H (130-400) K/uL MPV 9.5 (7.4-10.4) fL Immature Gran % (Auto) 0.3 % Neut % (Auto) 63.8 % Lymph % (Auto) 31.4 % Benson % (Auto) 3.7 % Eos % (Auto) 0.1 % Baso % (Auto) 0.7 % Neut # (Auto) 4.65 (1.4-6.5) K/uL Lymph # (Auto) 2.29 (1.2-3.4) K/uL Benson # (Auto) 0.27 (0.11-0.59) K/uL Eos # (Auto) 0.01 (0-0.5) K/uL Baso # (Auto) 0.05 (0-0.2) K/uL Immature Gran # (Auto) 0.02 (0.00-0.02) K/uL PT 10.2 (9.0-12.0) Seconds INR 1.0 (0.9-1.1) Sodium (136-145) mmol/L Potassium (3.5-5.1) mmol/L Chloride (98-107) mmol/L Carbon Dioxide (21-32) mmol/L Anion Gap (3-11) BUN (7-18) mg/dl Creatinine (0.6-1.2) mg/dl Est Cr Clr Drug Dosing ml/min Est GFR ( Amer) Est GFR (Non-Af Amer) BUN/Creatinine Ratio (10-20) Glucose (70-99) mg/dl Calcium (8.5-10.1) mg/dl Phosphorus Cancelled Magnesium Cancelled Total Bilirubin (0.2-1) mg/dl AST (15-37) U/L ALT (12-78) U/L Alkaline Phosphatase (45-117) U/L Troponin I (0-0.045) ng/ml Total Protein (6.4-8.2) gm/dl Albumin (3.4-5.0) gm/dl Globulin (2.5-4.0) gm/dl Albumin/Globulin Ratio (0.9-2) Lipase (73-393) U/L HCG, Qual (Negative) Urine Color Urine Appearance (Clear) Urine pH (4.5-7.5) Ur Specific [place] (1.000-1.030) Urine Protein (Negative) Urine Glucose (UA) (Negative) Urine Ketones (Negative) Urine Blood (Negative) Urine Nitrite (Negative) Urine Bilirubin (Negative) Urine Urobilinogen (Negative) Ur Leukocyte Esterase (Negative) Urine WBC (Auto) (0-5) /hpf Urine RBC (Auto) (0-4) /hpf U Hyaline Cast (Auto) (0-5) /lpf U Epithel Cells (Auto) (0-5) /lpf Urine Bacteria (Auto) (Negative) Urine Opiates Screen (Neg) Ur Methadone, Qual (Neg) Urine Barbiturates (Neg) Ur Phencyclidine (PCP) (Neg) U Amphetamin/Meth Scrn (Neg) MDMA (Ecstasy) Screen (Neg) U Benzodiazepines Scrn (Neg) Ur Cocaine Metabolite (Neg) U Marijuana (THC) Screen (Neg) Ethyl Alcohol mg/dL (0-3) mg/dl COVID-19 Eval Order 02/03/21 02/03/21 02/03/21 Range/Units 13:56 13:56 13:56 WBC (4.8-10.8) K/uL RBC (4.2-5.4) M/uL Hgb (12.0-16.0) g/dL Hct (37-47) % MCV (80-100) fL MCH (25-34) pg MCHC (32-36) g/dL RDW Std Deviation (36.4-46.3) fL RDW Coeff of Hanna (11.5-14.5) % Plt Count (130-400) K/uL MPV (7.4-10.4) fL Immature Gran % (Auto) % Neut % (Auto) % Lymph % (Auto) % Benson % (Auto) % Eos % (Auto) % Baso % (Auto) % Neut # (Auto) (1.4-6.5) K/uL Lymph # (Auto) (1.2-3.4) K/uL Benson # (Auto) (0.11-0.59) K/uL Eos # (Auto) (0-0.5) K/uL Baso # (Auto) (0-0.2) K/uL Immature Gran # (Auto) (0.00-0.02) K/uL PT (9.0-12.0) Seconds INR (0.9-1.1) Sodium 140 (136-145) mmol/L Potassium 3.2 L (3.5-5.1) mmol/L Chloride 100 (98-107) mmol/L Carbon Dioxide 24 (21-32) mmol/L Anion Gap 16.0 H (3-11) BUN 11 (7-18) mg/dl Creatinine 0.79 (0.6-1.2) mg/dl Est Cr Clr Drug Dosing 74.1 ml/min Est GFR ( Amer) 107.8 Est GFR (Non-Af Amer) 93.0 BUN/Creatinine Ratio 14.4 (10-20) Glucose 104 H (70-99) mg/dl Calcium 9.3 (8.5-10.1) mg/dl Phosphorus 4.3 Magnesium 2.1 Total Bilirubin 1.0 (0.2-1) mg/dl AST 132 H (15-37) U/L ALT 87 H (12-78) U/L Alkaline Phosphatase 145 H (45-117) U/L Troponin I 0.022 (0-0.045) ng/ml Total Protein 8.4 H (6.4-8.2) gm/dl Albumin 4.1 (3.4-5.0) gm/dl Globulin 4.3 H (2.5-4.0) gm/dl Albumin/Globulin Ratio 1.0 (0.9-2) Lipase 51 L (73-393) U/L HCG, Qual Negative (Negative) Urine Color Urine Appearance (Clear) Urine pH (4.5-7.5) Ur Specific [place] (1.000-1.030) Urine Protein (Negative) Urine Glucose (UA) (Negative) Urine Ketones (Negative) Urine Blood (Negative) Urine Nitrite (Negative) Urine Bilirubin (Negative) Urine Urobilinogen (Negative) Ur Leukocyte Esterase (Negative) Urine WBC (Auto) (0-5) /hpf Urine RBC (Auto) (0-4) /hpf U Hyaline Cast (Auto) (0-5) /lpf U Epithel Cells (Auto) (0-5) /lpf Urine Bacteria (Auto) (Negative) Urine Opiates Screen (Neg) Ur Methadone, Qual (Neg) Urine Barbiturates (Neg) Ur Phencyclidine (PCP) (Neg) U Amphetamin/Meth Scrn (Neg) MDMA (Ecstasy) Screen (Neg) U Benzodiazepines Scrn (Neg) Ur Cocaine Metabolite (Neg) U Marijuana (THC) Screen (Neg) Ethyl Alcohol mg/dL 251.3 H (0-3) mg/dl COVID-19 Eval Order 02/03/21 02/03/21 02/03/21 Range/Units 14:29 14:29 18:47 WBC (4.8-10.8) K/uL RBC (4.2-5.4) M/uL Hgb (12.0-16.0) g/dL Hct (37-47) % MCV (80-100) fL MCH (25-34) pg MCHC (32-36) g/dL RDW Std Deviation (36.4-46.3) fL RDW Coeff of Hanna (11.5-14.5) % Plt Count (130-400) K/uL MPV (7.4-10.4) fL Immature Gran % (Auto) % Neut % (Auto) % Lymph % (Auto) % Benson % (Auto) % Eos % (Auto) % Baso % (Auto) % Neut # (Auto) (1.4-6.5) K/uL Lymph # (Auto) (1.2-3.4) K/uL Benson # (Auto) (0.11-0.59) K/uL Eos # (Auto) (0-0.5) K/uL Baso # (Auto) (0-0.2) K/uL Immature Gran # (Auto) (0.00-0.02) K/uL PT (9.0-12.0) Seconds INR (0.9-1.1) Sodium (136-145) mmol/L Potassium (3.5-5.1) mmol/L Chloride (98-107) mmol/L Carbon Dioxide (21-32) mmol/L Anion Gap (3-11) BUN (7-18) mg/dl Creatinine (0.6-1.2) mg/dl Est Cr Clr Drug Dosing ml/min Est GFR ( Amer) Est GFR (Non-Af Amer) BUN/Creatinine Ratio (10-20) Glucose (70-99) mg/dl Calcium (8.5-10.1) mg/dl Phosphorus Magnesium Total Bilirubin (0.2-1) mg/dl AST (15-37) U/L ALT (12-78) U/L Alkaline Phosphatase (45-117) U/L Troponin I (0-0.045) ng/ml Total Protein (6.4-8.2) gm/dl Albumin (3.4-5.0) gm/dl Globulin (2.5-4.0) gm/dl Albumin/Globulin Ratio (0.9-2) Lipase (73-393) U/L HCG, Qual (Negative) Urine Color Yellow Urine Appearance Clear (Clear) Urine pH 6.0 (4.5-7.5) Ur Specific [place] 1.012 (1.000-1.030) Urine Protein Negative (Negative) Urine Glucose (UA) Negative (Negative) Urine Ketones Negative (Negative) Urine Blood 1+ H (Negative) Urine Nitrite Negative (Negative) Urine Bilirubin Negative (Negative) Urine Urobilinogen Negative (Negative) Ur Leukocyte Esterase 2+ H (Negative) Urine WBC (Auto) >30 H (0-5) /hpf Urine RBC (Auto) 0-4 (0-4) /hpf U Hyaline Cast (Auto) 1-5 (0-5) /lpf U Epithel Cells (Auto) 5-10 H (0-5) /lpf Urine Bacteria (Auto) 4+ H (Negative) Urine Opiates Screen Neg (Neg) Ur Methadone, Qual Neg (Neg) Urine Barbiturates Neg (Neg) Ur Phencyclidine (PCP) Neg (Neg) U Amphetamin/Meth Scrn Neg (Neg) MDMA (Ecstasy) Screen Neg (Neg) U Benzodiazepines Scrn Neg (Neg) Ur Cocaine Metabolite Neg (Neg) U Marijuana (THC) Screen Neg (Neg) Ethyl Alcohol mg/dL (0-3) mg/dl COVID-19 Eval Order CovFluRsv at [facility] Administered Medications Lactated Ringer's (Lr) 1,000 mls @ 125 mls/hr IV .Q8H DONOVAN Stop: 03/05/21 18:41 Last Admin: 02/03/21 19:12 Dose: 125 mls/hr Documented by: [id number] Discontinued Medications Acetaminophen (Acetaminophen 1000 Mg/100 Ml Iv) 1,000 mg IV ONE ONE Stop: 02/03/21 17:29 Last Admin: 02/03/21 18:23 Dose: 1,000 mg Documented by: [id number] Thiamine HCl 200 mg/ Sodium (Chloride) 52 mls @ 208 mls/hr IV NOW STA Stop: 02/03/21 13:51 Last Infusion: 02/03/21 15:23 Dose: 0 mls/hr Documented by: [id number] Admin: 02/03/21 14:35 Dose: 208 mls/hr Documented by: [id number] Sodium Chloride (Nss 1000ml) 1,000 mls @ 999 mls/hr IV .Q1H1M ONE Stop: 02/03/21 14:37 Last Infusion: 02/03/21 15:23 Dose: 0 mls/hr Documented by: [id number] Admin: 02/03/21 14:35 Dose: 999 mls/hr Documented by: [id number] Famotidine (Pepcid 20mg Iv Push) 20 mg in 5 mls @ 2.5 mls/min IV NOW STA Stop: 02/03/21 13:38 Last Admin: 02/03/21 14:35 Dose: 2.5 mls/min Documented by: [id number] Ceftriaxone Sodium (Rocephin) 1,000 mg in 50 mls @ 100 mls/hr IV NOW STA Stop: 02/03/21 15:34 Last Infusion: 02/03/21 16:07 Dose: 0 mls/hr Documented by: [id number] Admin: 02/03/21 15:19 Dose: 100 mls/hr Documented by: [id number] Sodium Chloride (Nss 1000ml) 1,000 mls @ 999 mls/hr IV .Q1H1M ONE Stop: 02/03/21 16:05 Last Infusion: 02/03/21 16:06 Dose: 0 mls/hr Documented by: [id number] Admin: 02/03/21 15:19 Dose: 999 mls/hr Documented by: [id number] Lorazepam (Ativan) 1 mg in 2 mls @ 2 mls/min IV NOW STA Stop: 02/03/21 15:06 Last Admin: 02/03/21 15:19 Dose: 2 mls/min Documented by: [id number] Lorazepam (Ativan) 2 mg in 4 mls @ 4 mls/min IV NOW STA Stop: 02/03/21 16:50 Last Admin: 02/03/21 17:02 Dose: 4 mls/min Documented by: [id number] Promethazine HCl (Phenergan) 12.5 mg in 50.5 mls @ 202 mls/hr IV NOW STA Stop: 02/03/21 18:19 Last Infusion: 02/03/21 18:45 Dose: 0 mls/hr Documented by: [id number] Admin: 02/03/21 18:23 Dose: 202 mls/hr Documented by: [id number] Ondansetron HCl (Ondansetron Inj 2 Mg/Ml 2 Ml Vial) 4 mg IV NOW STA Stop: 02/03/21 13:38 Last Admin: 02/03/21 14:35 Dose: 4 mg Documented by: [id number] Imaging Data Radiologist's Impression: Chest X-Ray 02/03/21 13:43 XR chest 1V portable CLINICAL HISTORY: Atypical chest pain COMPARISON STUDY: 12/31/2020 FINDINGS: The cardiac and mediastinal contours are normal. There is no evidence of focal pulmonary consolidation. There is no evidence of failure. No pleural effusions are visualized.[ IMPRESSION: No active disease in the chest. ACT 112: Negative or not required by law. Electronically signed by: Andrade Singh M.D. 02/03/2021 1:57 PM Discharge Plan Visit Data Chief Complaint: Alcohol Withdrawal Stated Complaint: ALCOHOL WITHDRAWAL,HX PANCREATITIS ED Provider: Carlos Alberto iSn Discharge Problem: Alcohol withdrawal syndrome, Alcoholic intoxication, Urinary tract infection, Acute epigastric pain Forms Stand Alone Forms: [facility], Suicide Prevention Resources Prescriptions Prescriptions: No Action chlordiazepoxide HCl [Librium] 25 mg Capsule 50 mg PO ONCE RF: 0 Discharge Problem: Alcohol withdrawal syndrome Qualifiers: Complication of substance-induced condition: with unspecified complication Qualified Code(s): F10.239 - Alcohol dependence with withdrawal, unspecified Alcoholic intoxication Qualifiers: Complication of substance-induced condition: with unspecified complication Qualified Code(s): F10.929 - Alcohol use, unspecified with intoxication, unspecified Urinary tract infection Qualifiers: Urinary tract infection type: site unspecified Hematuria presence: without hematuria Qualified Code(s): N39.0 - Urinary tract infection, site not specified
--- NOTE | 2021-02-03 13:59 | XRay Report ---
XR chest 1V portable CLINICAL HISTORY: Atypical chest pain COMPARISON STUDY: 12/31/2020 FINDINGS: The cardiac and mediastinal contours are normal. There is no evidence of focal pulmonary co nsolidation. There is no evidence of failure. No pleural effusions are visualized.[ IMPRESSION: No active disease in the chest. ACT 112: Negative or not required by law. Electronically signed by: Andrade Singh M.D. 02/03/2021 1:57 PM
[2021-02-03 14:14] LABS: Basophils # (auto) 0.05 K/uL (0-0.2); Basophils % (auto) 0.7 %; Eosinophils # (auto) 0.01 K/uL (0-0.5); Eosinophils % (auto) 0.1 %; Hematocrit (blood only) 43.7 % (37-47); Hemoglobin 15.2 g/dL (12.0-16.0); Immature Granulocytes # (auto) 0.02 K/uL (0.00-0.02); Immature Granulocytes % (auto) 0.3 %; Lymphocytes # (auto) 2.29 K/uL (1.2-3.4); Lymphocytes % (auto) 31.4 %; Mean Corpuscular Hemoglobin 32.1 pg (25-34); Mean Corpuscular Hgb Conc 34.8 g/dL (32-36); Mean Corpuscular Volume 92.4 fL (80-100); Mean Platelet Volume 9.5 fL (7.4-10.4); Monocytes # (auto) 0.27 K/uL (0.11-0.59); Monocytes % (auto) 3.7 %; Neutrophils # (auto) 4.65 K/uL (1.4-6.5); Neutrophils % (auto) 63.8 %; Platelet Count 451 K/uL (130-400); RDW Coefficient of Variation 12.8 % (11.5-14.5); RDW Standard Deviation 43.5 fL (36.4-46.3); Red Blood Count 4.73 M/uL (4.2-5.4); White Blood Count 7.29 K/uL (4.8-10.8)
[2021-02-03 14:24] LABS: Prothrombin Time 10.2 Seconds (9.0-12.0)
[2021-02-03 14:33] LABS: Albumin Level 4.1 gm/dl (3.4-5.0); BUN Creatinine Ratio 14.4 (10-20); Calcium 9.3 mg/dl (8.5-10.1); Creatinine Clr Calc Pharmacy 74.1 ml/min; Est GFR (African American) 107.8; Potassium 3.2 mmol/L (3.5-5.1)
[2021-02-03 14:38] LABS: Globulin 4.3 gm/dl (2.5-4.0); Total Protein 8.4 gm/dl (6.4-8.2); Troponin I 0.022 ng/ml (0-0.045)
[2021-02-03 14:40] LABS: Pregnancy Test, Serum Negative (Negative)
[2021-02-03 14:41] LABS: Appearance Urine Clear (Clear); Bacteria Urine Automated 4+ (Negative); Bilirubin Urine Negative (Negative); Blood Urine 1+ (Negative); Color Urine Yellow; Glucose Urine UA Negative (Negative); Ketones Urine Negative (Negative); Leukocyte Esterase Urine 2+ (Negative); Nitrite Urine Negative (Negative); Protein Urine Negative (Negative); RBC Urine Automated 0-4 /hpf (0-4); Specific Gravity Urine 1.012 (1.000-1.030); Urobilinogen Urine Negative (Negative); WBC Urine Automated >30 /hpf (0-5)
[2021-02-03] MEDS ORDERED: cefTRIAXone SODIUM 1,000 MG/50 ML BAG IV STA (15:05)
[2021-02-03] MEDS ORDERED: LORazepam 1 MG/2 ML VIAL IV STA ×2 (15:05→19:29)
[2021-02-03 15:06] LABS: Amphetamines+Metham, Urine Neg (Neg); Barbiturates, Urine Neg (Neg); Benzodiazepine, Urine Neg (Neg); Cocaine, Urine Neg (Neg); MDMA (Ecstacy), Urine Neg (Neg); Methadone, Urine Neg (Neg); Opiate, Urine Neg (Neg); Phencyclidine, Urine Neg (Neg)
[2021-02-03] MEDS ORDERED: LORazepam 2 MG/4 ML VIAL IV STA (16:49)
[2021-02-03] MEDS ORDERED: ACETAMINOPHEN 1000 MG/100 ML IV IV ONE (17:28)
[2021-02-03] MEDS ORDERED: PROMETHAZINE 12.5 MG/50.5 ML BAG IV STA (18:05)
--- NOTE | 2021-02-03 18:10 | History & Physical Report ---
Date of Service February 03, 2021 Assessment & Plan (1) Alcohol abuse: - Admit to tele - CIWA protocol with librium taper, currently tachycardic with HR of 145 - Cessation encouraged at bedside, pt has previously worked with case management and for rehab options, continue throughout her stay here. - NSS 150 ml/hr - Thiamine, folic acid, MVI daily - Etoh level of 251 upon arrival, last drink at 730 this am - Hypokalemia with K = 3.2, will replace via IV. - AST 132, ALT 87, Alk phos 145, follow LFT with am lab to follow trend - No acute pancreatitis at this time, lipase 51, no epigastric pain, consider CT abd if worsening pain to r/o. - Check LA, mag, phos now. Repeat BMP at 2200 to follow electrolytes. - Urine tox is negative - Avoid pain medication due to narcotic abuse history. May have tylenol IV x 1 in the ER, po once able to tolerate. -Patient reports being open to outpatient and inpatient rehab-went to 1 outpatient session last week and then began drinking 2 days after. (2) Pancreatic pseudocyst: - Hx of such. - Consider CT abd if worsening sx (3) Acute dehydration: - Continue fluids as above, plt count noted at 451 on arrival- follow (4) Tachycardia: - Secondary to dehydration, monitor for worsening withdrawal - Not on any cardiac medications - Continue fluids as above - Anxiety is worsening currently - EKG reviewed (5) Anxiety: -Had previously been prescribed BuSpar by PCP, reports taking this did not seem to improve her anxiety at all -Patient has not followed with counselor/therapist/psychiatrist in the past-May be warranted to have psychiatry consult or at least outpatient provider new patient set up for anxiolytic prescription. 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 She Has been admitted nearly monthly since May 2020 for this. Other PMHx of nonischemic cardiomyopathy (EF 55 to 60 TTE 2019), HTN, history pancreatic pseudocyst/necrosis status post endoscopic necrosectomy, narcotic addiction as per records, chronic anemia (baseline hemoglobin 10-11), alcohol abuse. Patient reports that she started drinking 1/5 of vodka daily 5 days ago, last drink she had was at 0730 this morning. She began having epigastric abdominal pain, nausea and had diarrhea twice last night which was black. Emesis is bilious, clear/yellow/green, denies coffee-ground emesis or bright red blood streaking in vomitus. She is asking for pain medication for her abdominal pain. Last week she went to outpatient rehab for alcohol rehab for the first time in [place], then 2 days later is when she began her alcohol binge. Her is also a heavy alcohol user, and so she finds it difficult to not drink especially if he is drinking something in front of her. One of her main weaknesses is when they go out to dinner and they order "just 1 drink". Her was also seen in the ER earlier today for alcohol use however he has been discharged home. They live together at home with 5 children, ages 16, 11, 6,4, 3 and 2. She reports having a strong support system at home to help with childcare including her parents and her 's grandparents. She is open to seeing a counselor or therapist as an outpatient, as well as outpatient versus inpatient rehab for alcohol use. Allergies Allergy/AdvReac Type Severity Reaction Status Date / Time tramadol Allergy Severe Seizure Verified 02/03/21 15:11 gabapentin Allergy Intermediate Hallucinati Verified 02/03/21 15:11 ng ketorolac [From Toradol] Allergy Mild shaky, Verified 02/03/21 15:11 dizzy, uneasy feeling Home Medications Medication Instructions Recorded Confirmed Type chlordiazepoxide HCl [Librium] 50 mg PO ONCE 02/03/21 02/03/21 History Past Med/Surg History Medical History (Updated 02/03/21 @ 19:25 by Carlos Alberto Sin DO) Alcohol abuse Depression History of COVID-19 diagnosed 10/09/2020 @ [facility]--asymptomatic at first then developed cough, sore throat, low grade fever for 1-2 days--not hospitalized History of kidney stones History of narcotic addiction Hypertension Migraine Nonischemic cardiomyopathy Pancreatic pseudocyst 08/2020 - AXIOS stent placement for pancreatic drainage, removed 11/30/20 Pancreatitis Surgical History H/O esophagogastroduodenoscopy Endoscopic US hx of endoscopic necrosectomy 08/2020 History of colposcopy History of dental surgery History of laparoscopic cholecystectomy History of tooth extraction History of wisdom tooth extraction Family History Grandfather (Paternal) Diabetes Grandmother (Maternal) Diabetes Mother Family history of diabetes mellitus Other No family history of adverse response to anesthesia Social History Smoking Status: Never smoker Second Hand Exposure: No; Do You Dip or Chew Tobacco: No; Hx Alcohol Use: Yes Alcohol type: hard liquor Alcohol Intake Frequency: 4 or More x per/Week Hx Substance Use: No Preferred Language: Syrian Communication Ability: Effective Reading Assistant Required: No Beliefs That Will Affect Care: None marital status: Current Living Situation: Spouse and Family Current Living Situation Comment: Lives with and 5 kids How many Children do You have: 5 Feels Safe at Home: Yes Safety Concerns: Feels Safe At This Time Assistive Devices: None Review of Systems Review of Systems: Constitutional: No fever, chills, sweats, fatigue or weakness Eyes: No diplopia, no changes in vision ENT: No sore throat, tinnitus, or trouble swallowing Respiratory: No shortness of breath, No dyspnea at rest or on exertion, no cough or sputum Cardiovascular: No chest pain, palpitations, or flutter Abdomen: As per HPI Musculoskeletal: No calf pain, No joint pain, No swelling Genitourinary : No dysuria or urinary frequency, No hematuria Neurologic: No numbness/tingling, no difficulty with ambulation, no sensory or motor deficits Psychiatric: + Depression and anxiety symptoms as per HPI, tried BuSpar without improvement. Endocrine: No fatigue, No weight changes Integumentary: No itch, No rash Physical Exam Physical Exam: General: awake, alert, no apparent distress, + anxious Head: Normocephalic, atraumatic ENT: PERRL, EOMI, no pharyngeal exudate, mucous membranes moist Chest: Clear to auscultation, on room air, no adventitious breath sounds Cardiac: + Sinus tachycardic with HR in the 150s to 160s at bedside throughout exam, visible heart beat through chest wall, no murmur, no JVD, normal peripheral pulses, good capillary refill Abdominal: NABS x 4 quadrants, soft, nondistended, + epigastric tenderness to palpation, no rebound or guarding Extremities: Normal inspection, no peripheral edema or erythema, calfs nontender to palpation Psych: Normal mood and affect Neuro: AAO x 3, strength intact bilaterally and rated 5/5, no motor deficits, speech is clear, no peripheral sensory deficits Results & Data Results & Data ([facility]) Vital Signs (Past 12 Hours) Vital Signs Temp Pulse Resp BP Pulse Ox 02/03/21 17:01 145 H 15 02/03/21 17:00 136 H 28 H 154/101 H 02/03/21 16:50 155 H 19 02/03/21 16:40 131 H 25 H 02/03/21 16:31 130 H 25 H 02/03/21 16:30 138 H 21 142/103 H 02/03/21 16:20 142 H 16 02/03/21 16:10 130 H 26 H 02/03/21 16:01 137 H 20 02/03/21 16:00 131 H 20 158/100 H 02/03/21 15:50 137 H 18 02/03/21 15:40 131 H 17 02/03/21 15:31 124 H 21 02/03/21 15:30 127 H 17 140/107 H 02/03/21 15:20 119 H 15 02/03/21 15:10 130 H 23 02/03/21 15:01 122 H 24 02/03/21 15:00 126 H 23 146/106 H 02/03/21 14:50 125 H 25 H 02/03/21 14:40 127 H 26 H 02/03/21 14:30 126 H 18 138/98 02/03/21 14:19 135 H 18 127/103 H 02/03/21 13:14 36.5 C 157 H 18 119/76 96 Diagnostic Findings Chest X-Ray 02/03/21 13:43 XR chest 1V portable CLINICAL HISTORY: Atypical chest pain COMPARISON STUDY: 12/31/2020 FINDINGS: The cardiac and mediastinal contours are normal. There is no evidence of focal pulmonary consolidation. There is no evidence of failure. No pleural effusions are visualized.[ IMPRESSION: No active disease in the chest. ACT 112: Negative or not required by law. Electronically signed by: Andrade Singh M.D. 02/03/2021 1:57 PM ECG Additional Comments: 03-FEB-2021 14:07:53 [facility]-EDSTAT ROUTINE RETRIEVAL Poor data quality, interpretation may be adversely affected Sinus tachycardia Nonspecific ST and T wave abnormality Abnormal ECG When compared with ECG of 31-DEC-2020 02:01, T wave inversion now evident in Lateral leads 25mm/s 10mm/mV 150Hz 9.0.9 12SL 241 PAYAL: 10 Referred by: REFERRED SELF Unconfirmed Vent. rate 128 BPM RI interval 112 ms QRS duration 82 ms QT/QTc 306/446 ms Code Status & VTE Plan Code Status Full code -discussed with patient Supervising Physician Co-Signing Physician Notes Patient seen examined by me, care coordinated with Alma Ferrari PA-C, please refer to her note above for further detail. 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 She Has been admitted nearly monthly since May 2020 for this. Other PMHx of nonischemic cardiomyopathy (EF 55 to 60 TTE 2019), HTN, history pancreatic pseudocyst/necrosis status post endoscopic necrosectomy, narcotic addiction as per records, chronic anemia (baseline hemoglobin 10-11), alcohol abuse. Currently patient is resting in bed, in no acute distress. She is alert and oriented and answering questions appropriately. She is tachycardic. Lung sounds clear to auscultation b/l, w/o any wheezing rhonchi or crackles. Abdomen is tender to palpation in epigastric area. No lower extremity edema, skin is warm, dry, without any rashes noted. Tattoos on the skin noted. Patient moves extremities spontaneously without difficulty. Started on IV fluids and electrolyte replacement therapy, thiamine, folic acid. Librium. Also concern for possible UTI, will continue Rocephin for now. Jim Higginbotham MD
[2021-02-03] MEDS ORDERED: ONDANSETRON INJ 2 MG/ML 2 ML VIAL IV PRN (18:42)
[2021-02-03] MEDS ORDERED: chlordiazePOXIDE ALCOHOL WITHDRAWL 50MG PO STA (18:42)
[2021-02-03 19:04] LABS: Magnesium 2.1 mg/dl (1.8-2.4); Phosphorus 4.3 mg/dl (2.5-4.9)
[2021-02-03] MEDS: LACTATED RINGER'S 1,000 ML IV SCH (19:12)
[2021-02-03 19:47] LABS: Influenza A virus by PCR Negative (Neg); Influenza B virus by PCR Negative (Neg); RSV by PCR Negative (Neg); SARS CoV2 RNA(COVID-19) InHosp NEGATIVE (Negative)
--- NOTE | 2021-02-03 19:55 | Electrocardiogram Report ---
Test Reason : Blood Pressure : / mmHG Vent. Rate : 128 BPM Atrial Rate : 128 BPM P-R Int : 112 ms QRS Dur : 082 ms QT Int : 306 ms P-R-T Axes : 038 047 075 degrees QTc Int : 446 ms Poor data quality, interpretation may be adversely affected Sinus tachycardia Nonspecific ST and T wave abnormality Abnormal ECG When compared with ECG of 31-DEC-2020 02:01, T wave inversion now evident in Lateral leads Confirmed by Giovany Krueger ([id number]) on 02/03/2021 7:54:47 PM Referred By: REFERRED SELF Confirmed By:Devin Krueger
[2021-02-03] MEDS ORDERED: FAMOTIDINE 20MG/5ML IV PUSH IV SCH (21:00)
[2021-02-03] MEDS: THIAMINE HCL 100 MG TAB PO SCH (22:21)
[2021-02-03] MEDS: FOLIC ACID 1 MG TAB PO SCH (22:21)
[2021-02-03] MEDS: chlordiazePOXIDE HCl 25 MG CAP PO SCH (22:22)
[2021-02-03] MEDS: FAMOTIDINE 20 MG in SYRINGE 3 ML IV SCH (22:22)
[2021-02-03] MEDS: POTASSIUM CHLORIDE / WTR 10 MEQ/100 ML PLCT IV SCH ×2 (22:23→23:24)
[2021-02-03 22:38] LABS: Creatinine Clr Calc Pharmacy 103.8 ml/min; Est GFR (African American) 131.9; Est GFR (Non-African American) 113.8; Potassium 3.3 mmol/L (3.5-5.1)
[2021-02-03] MEDS ORDERED: cloNIDine HCL 0.1 MG TAB PO PRN (22:42)
[2021-02-03] MEDS ORDERED: ACETAMINOPHEN 325 MG TAB PO STA (23:13)
[2021-02-03] MEDS: LORazepam 1 MG/2 ML VIAL IV PRN (23:46)
[2021-02-04] MEDS: POTASSIUM CHLORIDE / WTR 10 MEQ/100 ML PLCT IV SCH (00:32)
[2021-02-04] MEDS: LACTATED RINGER'S 1,000 ML IV SCH ×3 (04:05→17:46)
[2021-02-04] MEDS: chlordiazePOXIDE HCl 25 MG CAP PO SCH ×4 (04:05→21:37)
[2021-02-04 07:08] LABS: Hematocrit (blood only) 38.6 % (37-47); Hemoglobin 13.1 g/dL (12.0-16.0); Mean Corpuscular Hemoglobin 31.6 pg (25-34); Mean Corpuscular Hgb Conc 33.9 g/dL (32-36); Mean Corpuscular Volume 93.2 fL (80-100); Mean Platelet Volume 9.4 fL (7.4-10.4); Platelet Count 297 K/uL (130-400); RDW Coefficient of Variation 12.6 % (11.5-14.5); RDW Standard Deviation 42.8 fL (36.4-46.3); Red Blood Count 4.14 M/uL (4.2-5.4); White Blood Count 6.32 K/uL (4.8-10.8)
[2021-02-04 07:41] LABS: Albumin Level 3.3 gm/dl (3.4-5.0); BUN Creatinine Ratio 13.1 (10-20); Bilirubin Direct 0.5 mg/dl (0-0.2); Calcium 8.3 mg/dl (8.5-10.1); Creatinine Clr Calc Pharmacy 115.6 ml/min; Est GFR (African American) 136.7; Est GFR (Non-African American) 117.9; Magnesium 1.6 mg/dl (1.8-2.4); Potassium 3.6 mmol/L (3.5-5.1)
[2021-02-04] MEDS: FOLIC ACID 1 MG TAB PO SCH (07:43)
[2021-02-04] MEDS: FAMOTIDINE 20 MG in SYRINGE 3 ML IV SCH ×2 (07:43→21:37)
[2021-02-04] MEDS: THIAMINE HCL 100 MG TAB PO SCH (07:43)
[2021-02-04] MEDS: LORazepam 1 MG/2 ML VIAL IV PRN ×3 (07:51→22:07)
[2021-02-04 07:59] LABS: Albumin Globulin Ratio 0.9 (0.9-2); Bilirubin,Total 1.9 mg/dl (0.2-1); Globulin 3.7 gm/dl (2.5-4.0); Phosphorus 2.8 mg/dl (2.5-4.9)
[2021-02-04] MEDS ORDERED: POTASSIUM CHLORIDE CRTAB 20 MEQ TABCR PO STA (09:11)
--- NOTE | 2021-02-04 09:21 | Hospitalist Progress Note ---
Date of Service February 04, 2021 Assessment & Plan (1) Alcohol abuse: - Admit to tele - CIWA protocol with librium taper, on admission tachycardic with HR of 145 - Cessation encouraged at bedside, pt has previously worked with case management and for rehab options, continue throughout her stay here. - NSS 150 ml/hr - Thiamine, folic acid, MVI daily - Etoh level of 251 upon arrival, last drink at 730 this am of admision - Hypokalemia with K = 3.2, will replace via IV. - AST 132, ALT 87, Alk phos 145, follow LFT with am lab to follow trend - lipase 51, +epigastric pain, consider CT abd if worsening pain to r/o acute pancreatitis. 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 Repeat BMP at 2200 to follow electrolytes. - Urine tox is negative - Avoid pain medication due to narcotic abuse history. May have tylenol IV x 1 in the ER, po once able to tolerate. - Patient reports being open to outpatient and inpatient rehab-went to 1 outpatient session last week and then began drinking 2 days after. (2) Pancreatic pseudocyst: - Hx of such. - Consider CT abd if worsening sx (3) Acute dehydration: - Continue fluids as above, plt count noted at 451 on arrival- follow (4) Tachycardia: - Secondary to dehydration, monitor for worsening withdrawal - Not on any cardiac medications - Continue fluids as above - Anxiety is worsening currently - EKG reviewed (5) Anxiety: -Had previously been prescribed BuSpar by PCP, reports taking this did not seem to improve her anxiety at all -Patient has not followed with counselor/therapist/psychiatrist in the past-May be warranted to have psychiatry consult or at least outpatient provider new patient set up for anxiolytic prescription. Patient requests consultation with psychiatry, given anxiety/underlying issues of her alcohol use, consult placed Elevated lactic acid - started on IVF on admission - will repeat lactic acid Elevated anion gap/ lactic acidosis - anion gap normalized after IVF and electrolyte replacement in ED Poss. UTI UA c/w UTI, was started on empiric Rocephin in ED - will cont. for now - follow urine cultx (6) DVT prophylaxis: - teds, ambulatory CODE: Full code Dispo: From home, likely to remain in the hospital x 1-2 days Admission and Anticipated Discharge Date Admission Date: February 03, 2021 Subjective Patient seen in follow-up of alcohol abuse, drug intoxication/withdrawal treatment, abdominal pain Currently laying in bed, in no acute distress, received pain medications, now trying clear liquid diet Reports that she has been doing well with clear liquids No fevers chills Still tachycardic Request psychiatry consultation for anxiety/underlying issue of her alcohol use Review of Systems Review of Systems: All systems reviewed & are unremarkable except as noted in HPI & below Constitutional: no fever and no chills Respiratory: no cough and no dyspnea Cardiovascular: no chest pain and no palpitations Gastrointestinal: + abdominal pain; no nausea and no vomiting Physical Exam Physical Exam: General: awake, alert, no apparent distress Head: Normocephalic, atraumatic ENT: PERRL, EOMI, no pharyngeal exudate, mucous membranes moist Chest: Clear to auscultation, on room air, no adventitious breath sounds Cardiac: tachycardic, no murmur, no JVD, normal peripheral pulses, good capillary refill Abdominal: NABS x 4 quadrants, soft, nondistended, + epigastric tenderness to palpation, no rebound or guarding Extremities: Normal inspection, no peripheral edema or erythema, calfs nontender to palpation Psych: Normal mood and affect Neuro: AAO x 3, strength intact bilaterally and rated 5/5, no motor deficits, speech is clear, no peripheral sensory deficits Skin: warm, dry, multiple tattoos Results & Data Results & Data ([facility]) Vital Signs (Past 12 Hours) Vital Signs Temp Pulse Resp BP Pulse Ox 02/04/21 07:34 37.0 C 115 H 18 150/116 H 98 02/04/21 03:33 36.6 C 90 20 150/98 H 99 02/03/21 22:57 36.7 C 118 H 20 156/115 H 97 02/03/21 21:38 36.9 C 136 H 20 162/120 H 99 Laboratory Results 02/04/21 02/04/21 02/03/21 Range/Units 06:47 06:47 22:07 WBC 6.32 (4.8-10.8) K/uL RBC 4.14 L (4.2-5.4) M/uL Hgb 13.1 (12.0-16.0) g/dL Hct 38.6 (37-47) % MCV 93.2 (80-100) fL MCH 31.6 (25-34) pg MCHC 33.9 (32-36) g/dL RDW Std Deviation 42.8 (36.4-46.3) fL RDW Coeff of Hanna 12.6 (11.5-14.5) % Plt Count 297 (130-400) K/uL MPV 9.4 (7.4-10.4) fL Immature Gran % (Auto) % Neut % (Auto) % Lymph % (Auto) % Bates % (Auto) % Eos % (Auto) % Baso % (Auto) % Neut # (Auto) (1.4-6.5) K/uL Lymph # (Auto) (1.2-3.4) K/uL Bates # (Auto) (0.11-0.59) K/uL Eos # (Auto) (0-0.5) K/uL Baso # (Auto) (0-0.2) K/uL Immature Gran # (Auto) (0.00-0.02) K/uL PT (9.0-12.0) Seconds INR (0.9-1.1) Sodium 137 141 (136-145) mmol/L Potassium 3.6 3.3 L (3.5-5.1) mmol/L Chloride 103 106 (98-107) mmol/L Carbon Dioxide 29 28 (21-32) mmol/L Anion Gap 5.0 7.0 (3-11) BUN 7 10 (7-18) mg/dl Creatinine 0.53 L 0.59 L (0.6-1.2) mg/dl Est Cr Clr Drug Dosing 115.6 103.8 ml/min Est GFR ( Amer) 136.7 131.9 Est GFR (Non-Af Amer) 117.9 113.8 BUN/Creatinine Ratio 13.1 16.0 (10-20) Glucose 92 90 (70-99) mg/dl Lactate (0.4-2.0) mmol/L Calcium 8.3 L 8.0 L (8.5-10.1) mg/dl Phosphorus 2.8 D Magnesium 1.6 L Total Bilirubin 1.9 H D (0.2-1) mg/dl Direct Bilirubin 0.5 H (0-0.2) mg/dl AST 79 H (15-37) U/L ALT 65 (12-78) U/L Alkaline Phosphatase 123 H (45-117) U/L Troponin I (0-0.045) ng/ml Total Protein 7.0 (6.4-8.2) gm/dl Albumin 3.3 L (3.4-5.0) gm/dl Globulin 3.7 (2.5-4.0) gm/dl Albumin/Globulin Ratio 0.9 (0.9-2) Lipase (73-393) U/L HCG, Qual (Negative) Urine Color Urine Appearance (Clear) Urine pH (4.5-7.5) Ur Specific [place] (1.000-1.030) Urine Protein (Negative) Urine Glucose (UA) (Negative) Urine Ketones (Negative) Urine Blood (Negative) Urine Nitrite (Negative) Urine Bilirubin (Negative) Urine Urobilinogen (Negative) Ur Leukocyte Esterase (Negative) Urine WBC (Auto) (0-5) /hpf Urine RBC (Auto) (0-4) /hpf U Hyaline Cast (Auto) (0-5) /lpf U Epithel Cells (Auto) (0-5) /lpf Urine Bacteria (Auto) (Negative) Urine Opiates Screen (Neg) Ur Methadone, Qual (Neg) Urine Barbiturates (Neg) Ur Phencyclidine (PCP) (Neg) U Amphetamin/Meth Scrn (Neg) MDMA (Ecstasy) Screen (Neg) U Benzodiazepines Scrn (Neg) Ur Cocaine Metabolite (Neg) U Marijuana (THC) Screen (Neg) Ethyl Alcohol mg/dL (0-3) mg/dl COVID-19 Eval Order SARS-CoV-2 (PCR) (Negative) Influenza Type A (PCR) (Neg) Influenza Type B (PCR) (Neg) RSV (RT-PCR) (Neg) 02/03/21 02/03/21 02/03/21 Range/Units 20:54 19:05 18:47 WBC (4.8-10.8) K/uL RBC (4.2-5.4) M/uL Hgb (12.0-16.0) g/dL Hct (37-47) % MCV (80-100) fL MCH (25-34) pg MCHC (32-36) g/dL RDW Std Deviation (36.4-46.3) fL RDW Coeff of Hanna (11.5-14.5) % Plt Count (130-400) K/uL MPV (7.4-10.4) fL Immature Gran % (Auto) % Neut % (Auto) % Lymph % (Auto) % Bates % (Auto) % Eos % (Auto) % Baso % (Auto) % Neut # (Auto) (1.4-6.5) K/uL Lymph # (Auto) (1.2-3.4) K/uL Bates # (Auto) (0.11-0.59) K/uL Eos # (Auto) (0-0.5) K/uL Baso # (Auto) (0-0.2) K/uL Immature Gran # (Auto) (0.00-0.02) K/uL PT (9.0-12.0) Seconds INR (0.9-1.1) Sodium (136-145) mmol/L Potassium (3.5-5.1) mmol/L Chloride (98-107) mmol/L Carbon Dioxide (21-32) mmol/L Anion Gap (3-11) BUN (7-18) mg/dl Creatinine (0.6-1.2) mg/dl Est Cr Clr Drug Dosing ml/min Est GFR ( Amer) Est GFR (Non-Af Amer) BUN/Creatinine Ratio (10-20) Glucose (70-99) mg/dl Lactate 2.5 H* 2.8 H* (0.4-2.0) mmol/L Calcium (8.5-10.1) mg/dl Phosphorus Magnesium Total Bilirubin (0.2-1) mg/dl Direct Bilirubin (0-0.2) mg/dl AST (15-37) U/L ALT (12-78) U/L Alkaline Phosphatase (45-117) U/L Troponin I (0-0.045) ng/ml Total Protein (6.4-8.2) gm/dl Albumin (3.4-5.0) gm/dl Globulin (2.5-4.0) gm/dl Albumin/Globulin Ratio (0.9-2) Lipase (73-393) U/L HCG, Qual (Negative) Urine Color Urine Appearance (Clear) Urine pH (4.5-7.5) Ur Specific [place] (1.000-1.030) Urine Protein (Negative) Urine Glucose (UA) (Negative) Urine Ketones (Negative) Urine Blood (Negative) Urine Nitrite (Negative) Urine Bilirubin (Negative) Urine Urobilinogen (Negative) Ur Leukocyte Esterase (Negative) Urine WBC (Auto) (0-5) /hpf Urine RBC (Auto) (0-4) /hpf U Hyaline Cast (Auto) (0-5) /lpf U Epithel Cells (Auto) (0-5) /lpf Urine Bacteria (Auto) (Negative) Urine Opiates Screen (Neg) Ur Methadone, Qual (Neg) Urine Barbiturates (Neg) Ur Phencyclidine (PCP) (Neg) U Amphetamin/Meth Scrn (Neg) MDMA (Ecstasy) Screen (Neg) U Benzodiazepines Scrn (Neg) Ur Cocaine Metabolite (Neg) U Marijuana (THC) Screen (Neg) Ethyl Alcohol mg/dL (0-3) mg/dl COVID-19 Eval Order SARS-CoV-2 (PCR) NEGATIVE (Negative) Influenza Type A (PCR) Negative (Neg) Influenza Type B (PCR) Negative (Neg) RSV (RT-PCR) Negative (Neg) 02/03/21 02/03/21 02/03/21 Range/Units 18:47 14:29 14:29 WBC (4.8-10.8) K/uL RBC (4.2-5.4) M/uL Hgb (12.0-16.0) g/dL Hct (37-47) % MCV (80-100) fL MCH (25-34) pg MCHC (32-36) g/dL RDW Std Deviation (36.4-46.3) fL RDW Coeff of Hanna (11.5-14.5) % Plt Count (130-400) K/uL MPV (7.4-10.4) fL Immature Gran % (Auto) % Neut % (Auto) % Lymph % (Auto) % Bates % (Auto) % Eos % (Auto) % Baso % (Auto) % Neut # (Auto) (1.4-6.5) K/uL Lymph # (Auto) (1.2-3.4) K/uL Bates # (Auto) (0.11-0.59) K/uL Eos # (Auto) (0-0.5) K/uL Baso # (Auto) (0-0.2) K/uL Immature Gran # (Auto) (0.00-0.02) K/uL PT (9.0-12.0) Seconds INR (0.9-1.1) Sodium (136-145) mmol/L Potassium (3.5-5.1) mmol/L Chloride (98-107) mmol/L Carbon Dioxide (21-32) mmol/L Anion Gap (3-11) BUN (7-18) mg/dl Creatinine (0.6-1.2) mg/dl Est Cr Clr Drug Dosing ml/min Est GFR ( Amer) Est GFR (Non-Af Amer) BUN/Creatinine Ratio (10-20) Glucose (70-99) mg/dl Lactate (0.4-2.0) mmol/L Calcium (8.5-10.1) mg/dl Phosphorus Magnesium Total Bilirubin (0.2-1) mg/dl Direct Bilirubin (0-0.2) mg/dl AST (15-37) U/L ALT (12-78) U/L Alkaline Phosphatase (45-117) U/L Troponin I (0-0.045) ng/ml Total Protein (6.4-8.2) gm/dl Albumin (3.4-5.0) gm/dl Globulin (2.5-4.0) gm/dl Albumin/Globulin Ratio (0.9-2) Lipase (73-393) U/L HCG, Qual (Negative) Urine Color Yellow Urine Appearance Clear (Clear) Urine pH 6.0 (4.5-7.5) Ur Specific [place] 1.012 (1.000-1.030) Urine Protein Negative (Negative) Urine Glucose (UA) Negative (Negative) Urine Ketones Negative (Negative) Urine Blood 1+ H (Negative) Urine Nitrite Negative (Negative) Urine Bilirubin Negative (Negative) Urine Urobilinogen Negative (Negative) Ur Leukocyte Esterase 2+ H (Negative) Urine WBC (Auto) >30 H (0-5) /hpf Urine RBC (Auto) 0-4 (0-4) /hpf U Hyaline Cast (Auto) 1-5 (0-5) /lpf U Epithel Cells (Auto) 5-10 H (0-5) /lpf Urine Bacteria (Auto) 4+ H (Negative) Urine Opiates Screen Neg (Neg) Ur Methadone, Qual Neg (Neg) Urine Barbiturates Neg (Neg) Ur Phencyclidine (PCP) Neg (Neg) U Amphetamin/Meth Scrn Neg (Neg) MDMA (Ecstasy) Screen Neg (Neg) U Benzodiazepines Scrn Neg (Neg) Ur Cocaine Metabolite Neg (Neg) U Marijuana (THC) Screen Neg (Neg) Ethyl Alcohol mg/dL (0-3) mg/dl COVID-19 Eval Order [facility]Rsv at [facility] SARS-CoV-2 (PCR) (Negative) Influenza Type A (PCR) (Neg) Influenza Type B (PCR) (Neg) RSV (RT-PCR) (Neg) 02/03/21 02/03/21 02/03/21 Range/Units 13:56 13:56 13:56 WBC (4.8-10.8) K/uL RBC (4.2-5.4) M/uL Hgb (12.0-16.0) g/dL Hct (37-47) % MCV (80-100) fL MCH (25-34) pg MCHC (32-36) g/dL RDW Std Deviation (36.4-46.3) fL RDW Coeff of Hanna (11.5-14.5) % Plt Count (130-400) K/uL MPV (7.4-10.4) fL Immature Gran % (Auto) % Neut % (Auto) % Lymph % (Auto) % Bates % (Auto) % Eos % (Auto) % Baso % (Auto) % Neut # (Auto) (1.4-6.5) K/uL Lymph # (Auto) (1.2-3.4) K/uL Bates # (Auto) (0.11-0.59) K/uL Eos # (Auto) (0-0.5) K/uL Baso # (Auto) (0-0.2) K/uL Immature Gran # (Auto) (0.00-0.02) K/uL PT (9.0-12.0) Seconds INR (0.9-1.1) Sodium 140 (136-145) mmol/L Potassium 3.2 L (3.5-5.1) mmol/L Chloride 100 (98-107) mmol/L Carbon Dioxide 24 (21-32) mmol/L Anion Gap 16.0 H (3-11) BUN 11 (7-18) mg/dl Creatinine 0.79 (0.6-1.2) mg/dl Est Cr Clr Drug Dosing 74.1 ml/min Est GFR ( Amer) 107.8 Est GFR (Non-Af Amer) 93.0 BUN/Creatinine Ratio 14.4 (10-20) Glucose 104 H (70-99) mg/dl Lactate (0.4-2.0) mmol/L Calcium 9.3 (8.5-10.1) mg/dl Phosphorus 4.3 Magnesium 2.1 Total Bilirubin 1.0 (0.2-1) mg/dl Direct Bilirubin (0-0.2) mg/dl AST 132 H (15-37) U/L ALT 87 H (12-78) U/L Alkaline Phosphatase 145 H (45-117) U/L Troponin I 0.022 (0-0.045) ng/ml Total Protein 8.4 H (6.4-8.2) gm/dl Albumin 4.1 (3.4-5.0) gm/dl Globulin 4.3 H (2.5-4.0) gm/dl Albumin/Globulin Ratio 1.0 (0.9-2) Lipase 51 L (73-393) U/L HCG, Qual Negative (Negative) Urine Color Urine Appearance (Clear) Urine pH (4.5-7.5) Ur Specific [place] (1.000-1.030) Urine Protein (Negative) Urine Glucose (UA) (Negative) Urine Ketones (Negative) Urine Blood (Negative) Urine Nitrite (Negative) Urine Bilirubin (Negative) Urine Urobilinogen (Negative) Ur Leukocyte Esterase (Negative) Urine WBC (Auto) (0-5) /hpf Urine RBC (Auto) (0-4) /hpf U Hyaline Cast (Auto) (0-5) /lpf U Epithel Cells (Auto) (0-5) /lpf Urine Bacteria (Auto) (Negative) Urine Opiates Screen (Neg) Ur Methadone, Qual (Neg) Urine Barbiturates (Neg) Ur Phencyclidine (PCP) (Neg) U Amphetamin/Meth Scrn (Neg) MDMA (Ecstasy) Screen (Neg) U Benzodiazepines Scrn (Neg) Ur Cocaine Metabolite (Neg) U Marijuana (THC) Screen (Neg) Ethyl Alcohol mg/dL 251.3 H (0-3) mg/dl COVID-19 Eval Order SARS-CoV-2 (PCR) (Negative) Influenza Type A (PCR) (Neg) Influenza Type B (PCR) (Neg) RSV (RT-PCR) (Neg) 02/03/21 02/03/21 02/03/21 Range/Units 13:56 13:56 13:55 WBC 7.29 (4.8-10.8) K/uL RBC 4.73 (4.2-5.4) M/uL Hgb 15.2 (12.0-16.0) g/dL Hct 43.7 (37-47) % MCV 92.4 (80-100) fL MCH 32.1 (25-34) pg MCHC 34.8 (32-36) g/dL RDW Std Deviation 43.5 (36.4-46.3) fL RDW Coeff of Hanna 12.8 (11.5-14.5) % Plt Count 451 H (130-400) K/uL MPV 9.5 (7.4-10.4) fL Immature Gran % (Auto) 0.3 % Neut % (Auto) 63.8 % Lymph % (Auto) 31.4 % Bates % (Auto) 3.7 % Eos % (Auto) 0.1 % Baso % (Auto) 0.7 % Neut # (Auto) 4.65 (1.4-6.5) K/uL Lymph # (Auto) 2.29 (1.2-3.4) K/uL Bates # (Auto) 0.27 (0.11-0.59) K/uL Eos # (Auto) 0.01 (0-0.5) K/uL Baso # (Auto) 0.05 (0-0.2) K/uL Immature Gran # (Auto) 0.02 (0.00-0.02) K/uL PT 10.2 (9.0-12.0) Seconds INR 1.0 (0.9-1.1) Sodium (136-145) mmol/L Potassium (3.5-5.1) mmol/L Chloride (98-107) mmol/L Carbon Dioxide (21-32) mmol/L Anion Gap (3-11) BUN (7-18) mg/dl Creatinine (0.6-1.2) mg/dl Est Cr Clr Drug Dosing ml/min Est GFR ( Amer) Est GFR (Non-Af Amer) BUN/Creatinine Ratio (10-20) Glucose (70-99) mg/dl Lactate (0.4-2.0) mmol/L Calcium (8.5-10.1) mg/dl Phosphorus Cancelled Magnesium Cancelled Total Bilirubin (0.2-1) mg/dl Direct Bilirubin (0-0.2) mg/dl AST (15-37) U/L ALT (12-78) U/L Alkaline Phosphatase (45-117) U/L Troponin I (0-0.045) ng/ml Total Protein (6.4-8.2) gm/dl Albumin (3.4-5.0) gm/dl Globulin (2.5-4.0) gm/dl Albumin/Globulin Ratio (0.9-2) Lipase (73-393) U/L HCG, Qual (Negative) Urine Color Urine Appearance (Clear) Urine pH (4.5-7.5) Ur Specific [place] (1.000-1.030) Urine Protein (Negative) Urine Glucose (UA) (Negative) Urine Ketones (Negative) Urine Blood (Negative) Urine Nitrite (Negative) Urine Bilirubin (Negative) Urine Urobilinogen (Negative) Ur Leukocyte Esterase (Negative) Urine WBC (Auto) (0-5) /hpf Urine RBC (Auto) (0-4) /hpf U Hyaline Cast (Auto) (0-5) /lpf U Epithel Cells (Auto) (0-5) /lpf Urine Bacteria (Auto) (Negative) Urine Opiates Screen (Neg) Ur Methadone, Qual (Neg) Urine Barbiturates (Neg) Ur Phencyclidine (PCP) (Neg) U Amphetamin/Meth Scrn (Neg) MDMA (Ecstasy) Screen (Neg) U Benzodiazepines Scrn (Neg) Ur Cocaine Metabolite (Neg) U Marijuana (THC) Screen (Neg) Ethyl Alcohol mg/dL (0-3) mg/dl COVID-19 Eval Order SARS-CoV-2 (PCR) (Negative) Influenza Type A (PCR) (Neg) Influenza Type B (PCR) (Neg) RSV (RT-PCR) (Neg) Medications Administered Current Inpatient Medications Chlordiazepoxide HCl (Chlordiazepoxide Hcl 25 Mg Cap) 50 mg PO Q6H DONOVAN; Taper Stop: 02/06/21 21:37 Last Admin: 02/04/21 08:46 Dose: 50 mg Documented by: Chlordiazepoxide HCl (Chlordiazepoxide Hcl 10 Mg Cap) 10 mg PO Q12H [facility]AN Stop: 02/07/21 06:16 Clonidine HCl (Clonidine Hcl 0.1 Mg Tab) 0.1 mg PO Q4H PRN PRN Reason: Hypertension Stop: 03/05/21 22:41 Folic Acid (Folic Acid 1 Mg Tab) 1 mg PO QAM [facility] Stop: 03/05/21 21:37 Last Admin: 02/04/21 07:43 Dose: 1 mg Documented by: Lactated Ringer's (Lr) 1,000 mls @ 125 mls/hr IV .Q8H [facility] Stop: 03/05/21 18:41 Last Admin: 02/04/21 04:05 Dose: 125 mls/hr Documented by: Famotidine 20 mg/ Syringe 5 mls @ 2.5 mls/min IV BID [facility] Stop: 03/05/21 21:44 Last Admin: 02/04/21 07:43 Dose: 2.5 mls/min Documented by: Lorazepam (Ativan) 1 mg in 2 mls @ 2 mls/min IV Q2H PRN PRN Reason: Alcohol Withdrawal Stop: 03/05/21 22:41 Last Admin: 02/04/21 07:51 Dose: 2 mls/min Documented by: Magnesium Sulfate/Dextrose (Magnesium Sulfate / D5w) 1 gm in 100 mls @ 50 mls/hr IV Q2H [facility] Stop: 02/04/21 13:29 Ceftriaxone Sodium 1,000 mg/ (Dextrose) 50 mls @ 100 mls/hr IV Q24H [facility]; Protocol Stop: 02/09/21 09:14 Ondansetron HCl (Ondansetron Inj 2 Mg/Ml 2 Ml Vial) 4 mg IV Q4H PRN PRN Reason: Nausea And Vomiting Stop: 03/05/21 18:41 Last Admin: 02/03/21 23:47 Dose: 4 mg Documented by: Thiamine HCl (Thiamine Hcl 100 Mg Tab) 100 mg PO QAM [facility] Stop: 03/05/21 21:37 Last Admin: 02/04/21 07:43 Dose: 100 mg Documented by:
[2021-02-04] MEDS: MAGNESIUM SULFATE / D5W 1 GM/100 ML BAG IV SCH ×2 (09:23→11:24)
[2021-02-04] MEDS: cefTRIAXone SODIUM 1,000 MG in DEXTROSE 5% 50 ML IV SCH (09:38)
[2021-02-04] MEDS: oxyCODONE HCL IR 5 MG TAB (IMMEDIATE RELEASE) PO PRN ×2 (11:36→17:08)
--- NOTE | 2021-02-04 14:00 | Communication Note ---
Date of Service: February 04, 2021 reviewed as psychiatric insurance consultant, patient in active withdrawal--on AWSS with librium taper, current BP 163/121, p=128. Known to consult service as multiple medical admits with ETOH use disorder. didn't follow up with previous recs. Consult service will follow, no additional med recs at this time as active withdrawal. Liaison can support CM's aftercare planning, ideally would go to rehab. Dr. Vasquez and Seema Smart PA-C to assume service 8 am tomorrow.
[2021-02-04] MEDS: PANTOprazole 40 MG TAB PO SCH (14:04)
[2021-02-05] MEDS: LACTATED RINGER'S 1,000 ML IV SCH ×2 (01:10→11:52)
[2021-02-05] MEDS: oxyCODONE HCL IR 5 MG TAB (IMMEDIATE RELEASE) PO PRN ×4 (01:14→20:33)
[2021-02-05] MEDS: chlordiazePOXIDE HCl 25 MG CAP PO SCH ×3 (05:30→21:18)
[2021-02-05] MEDS: FAMOTIDINE 20 MG in SYRINGE 3 ML IV SCH ×2 (07:25→21:18)
[2021-02-05] MEDS: FOLIC ACID 1 MG TAB PO SCH (07:25)
[2021-02-05] MEDS: THIAMINE HCL 100 MG TAB PO SCH (07:25)
[2021-02-05] MEDS: PANTOprazole 40 MG TAB PO SCH (07:25)
[2021-02-05 07:29] LABS: Hematocrit (blood only) 35.3 % (37-47); Hemoglobin 12.2 g/dL (12.0-16.0); Mean Corpuscular Hgb Conc 34.6 g/dL (32-36); Mean Corpuscular Volume 92.7 fL (80-100); Mean Platelet Volume 9.7 fL (7.4-10.4); Platelet Count 289 K/uL (130-400); RDW Coefficient of Variation 12.5 % (11.5-14.5); RDW Standard Deviation 42.5 fL (36.4-46.3); Red Blood Count 3.81 M/uL (4.2-5.4); White Blood Count 3.88 K/uL (4.8-10.8)
[2021-02-05 08:03] LABS: Albumin Level 3.1 gm/dl (3.4-5.0); Calcium 9.1 mg/dl (8.5-10.1); Creatinine Clr Calc Pharmacy 109.4 ml/min; Est GFR (African American) 134.2; Est GFR (Non-African American) 115.8; Magnesium 1.8 mg/dl (1.8-2.4); Potassium 3.6 mmol/L (3.5-5.1)
[2021-02-05 08:09] LABS: Bilirubin,Total 0.8 mg/dl (0.2-1); Globulin 3.1 gm/dl (2.5-4.0); Phosphorus 3.1 mg/dl (2.5-4.9); Total Protein 6.2 gm/dl (6.4-8.2)
[2021-02-05] MEDS ORDERED: POTASSIUM CHLORIDE CRTAB 20 MEQ TABCR PO STA (09:04)
--- NOTE | 2021-02-05 09:06 | Hospitalist Progress Note ---
Date of Service February 05, 2021 Assessment & Plan (1) Alcohol abuse: - Admit to tele - CIWA protocol with librium taper, on admission tachycardic with HR of 145 - Cessation encouraged at bedside, pt has previously worked with case management and for rehab options, continue throughout her stay here. - NSS 150 ml/hr - Thiamine, folic acid, MVI daily - Etoh level of 251 upon arrival, last drink at 730 this am of admision - Hypokalemia with K = 3.2, will replace via IV. - AST 132, ALT 87, Alk phos 145, follow LFT with am lab to follow trend - lipase 51, +epigastric pain, consider CT abd if worsening pain to r/o acute pancreatitis. 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 Repeat BMP at 2200 to follow electrolytes. - Urine tox is negative - Avoid pain medication due to narcotic abuse history. - Patient reports being open to outpatient and inpatient rehab-went to 1 outpatient session last week and then began drinking 2 days after. Hypertension and tachycardia now much improved, continue Librium taper. Downgrade from PCU. Tolerating food, epigastric pain improved. (2) Pancreatic pseudocyst: - Hx of such. - Consider CT abd if worsening sx (3) Acute dehydration: - Continue fluids as above, plt count noted at 451 on arrival- follow (4) Tachycardia: - Secondary to dehydration, monitor for worsening withdrawal - Not on any cardiac medications - Continue fluids as above - Anxiety is worsening currently - EKG reviewed (5) Anxiety: -Had previously been prescribed BuSpar by PCP, reports taking this did not seem to improve her anxiety at all -Patient has not followed with counselor/therapist/psychiatrist in the past-May be warranted to have psychiatry consult or at least outpatient provider new patient set up for anxiolytic prescription. Elevated lactic acid - started on IVF on admission - repeat lactic acid Elevated anion gap/ lactic acidosis - anion gap normalized after IVF and electrolyte replacement in ED UTI UA c/w UTI, was started on empiric Rocephin in ED, will cont. for now - follow urine cultx - E.coli, sensitivities to follow (6) DVT prophylaxis: - teds, ambulatory CODE: Full code Dispo: From home, likely DC tmrw Will notify PCP, pt in the hospital d/t alcohol use Admission and Anticipated Discharge Date Admission Date: February 03, 2021 Subjective Patient seen in follow-up of alcohol abuse, intoxication/withdrawal treatment, abdominal pain Currently laying in bed, in no acute distress, received pain medications, now tolerating diet Reports that she has been doing well with diet No fevers chills tachycardia improved Review of Systems Review of Systems: All systems reviewed & are unremarkable except as noted in HPI & below Constitutional: no fever and no chills Respiratory: no cough and no dyspnea Cardiovascular: no chest pain and no palpitations Gastrointestinal: + abdominal pain (epigastric (improved)); no nausea and no vomiting Physical Exam Physical Exam: General: awake, alert, no apparent distress Head: Normocephalic, atraumatic ENT: PERRL, EOMI, no pharyngeal exudate, mucous membranes moist Chest: Clear to auscultation, on room air, no adventitious breath sounds Cardiac: tachycardic, no murmur, no JVD, normal peripheral pulses, good capillary refill Abdominal: NABS x 4 quadrants, soft, nondistended, + epigastric tenderness to palpation, no rebound or guarding Extremities: Normal inspection, no peripheral edema or erythema, calfs nontender to palpation Psych: Normal mood and affect Neuro: AAO x 3, strength intact bilaterally and rated 5/5, no motor deficits, speech is clear, no peripheral sensory deficits Skin: warm, dry, multiple tattoos Results & Data Results & Data ([facility]) Vital Signs (Past 12 Hours) Vital Signs Temp Pulse Resp BP Pulse Ox 02/05/21 04:00 36.3 C L 81 18 124/90 99 02/05/21 00:00 36.6 C 103 H 18 147/108 H 95 Laboratory Results 02/05/21 02/05/21 02/04/21 Range/Units 07:02 07:02 12:58 WBC 3.88 L (4.8-10.8) K/uL RBC 3.81 L (4.2-5.4) M/uL Hgb 12.2 (12.0-16.0) g/dL Hct 35.3 L (37-47) % MCV 92.7 (80-100) fL MCH 32.0 (25-34) pg MCHC 34.6 (32-36) g/dL RDW Std Deviation 42.5 (36.4-46.3) fL RDW Coeff of Hanna 12.5 (11.5-14.5) % Plt Count 289 (130-400) K/uL MPV 9.7 (7.4-10.4) fL Sodium 140 (136-145) mmol/L Potassium 3.6 (3.5-5.1) mmol/L Chloride 107 (98-107) mmol/L Carbon Dioxide 27 (21-32) mmol/L Anion Gap 6.0 (3-11) BUN 5 L (7-18) mg/dl Creatinine 0.56 L (0.6-1.2) mg/dl Est Cr Clr Drug Dosing 109.4 ml/min Est GFR ( Amer) 134.2 Est GFR (Non-Af Amer) 115.8 BUN/Creatinine Ratio 8.0 L (10-20) Glucose 110 H (70-99) mg/dl Lactate 3.1 H* (0.4-2.0) mmol/L Calcium 9.1 (8.5-10.1) mg/dl Phosphorus 3.1 (2.5-4.9) mg/dl Magnesium 1.8 (1.8-2.4) mg/dl Total Bilirubin 0.8 D (0.2-1) mg/dl AST 37 (15-37) U/L ALT 41 (12-78) U/L Alkaline Phosphatase 102 (45-117) U/L Total Protein 6.2 L (6.4-8.2) gm/dl Albumin 3.1 L (3.4-5.0) gm/dl Globulin 3.1 (2.5-4.0) gm/dl Albumin/Globulin Ratio 1.0 (0.9-2) Medications Administered Current Inpatient Medications Chlordiazepoxide HCl (Chlordiazepoxide Hcl 25 Mg Cap) 50 mg PO Q8H DONOVAN; Taper Stop: 02/06/21 21:37 Last Admin: 02/05/21 05:30 Dose: 50 mg Documented by: Chlordiazepoxide HCl (Chlordiazepoxide Hcl 10 Mg Cap) 10 mg PO Q12H DONOVAN Stop: 02/07/21 06:16 Clonidine HCl (Clonidine Hcl 0.1 Mg Tab) 0.1 mg PO Q4H PRN PRN Reason: Hypertension Stop: 03/05/21 22:41 Last Admin: 02/04/21 11:36 Dose: 0.1 mg Documented by: Folic Acid (Folic Acid 1 Mg Tab) 1 mg PO QAM [facility] Stop: 03/05/21 21:37 Last Admin: 02/05/21 07:25 Dose: 1 mg Documented by: Lactated Ringer's (Lr) 1,000 mls @ 125 mls/hr IV .Q8H [facility] Stop: 03/05/21 18:41 Last Admin: 02/05/21 01:10 Dose: 125 mls/hr Documented by: Famotidine 20 mg/ Syringe 5 mls @ 2.5 mls/min IV BID [facility] Stop: 03/05/21 21:44 Last Admin: 02/05/21 07:25 Dose: 2.5 mls/min Documented by: Lorazepam (Ativan) 1 mg in 2 mls @ 2 mls/min IV Q2H PRN PRN Reason: Alcohol Withdrawal Stop: 03/05/21 22:41 Last Admin: 02/04/21 22:07 Dose: 2 mls/min Documented by: Ceftriaxone Sodium 1,000 mg/ (Dextrose) 50 mls @ 100 mls/hr IV Q24H [facility]; Protocol Stop: 02/09/21 09:59 Last Infusion: 02/04/21 10:19 Dose: Infused Documented by: Magnesium Oxide (Magnesium Oxide 400 Mg Tab) 400 mg PO BID [facility] Stop: 03/07/21 09:14 Ondansetron HCl (Ondansetron Inj 2 Mg/Ml 2 Ml Vial) 4 mg IV Q4H PRN PRN Reason: Nausea And Vomiting Stop: 03/05/21 18:41 Last Admin: 02/03/21 23:47 Dose: 4 mg Documented by: Oxycodone HCl (Oxycodone Hcl Ir 5 Mg Tab (Immediate Release)) 5 mg PO Q6H PRN PRN Reason: Pain Stop: 02/18/21 11:16 Last Admin: 02/05/21 07:25 Dose: 5 mg Documented by: Pantoprazole Sodium (Pantoprazole 40 Mg Tab) 40 mg PO QAM [facility] Stop: 02/08/21 12:59 Last Admin: 02/05/21 07:25 Dose: 40 mg Documented by: Potassium Chloride (Potassium Chloride Crtab 20 Meq Tabcr) 40 meq PO NOW STA Stop: 02/05/21 09:05 Thiamine HCl (Thiamine Hcl 100 Mg Tab) 100 mg PO QAM [facility] Stop: 03/05/21 21:37 Last Admin: 02/05/21 07:25 Dose: 100 mg Documented by:
[2021-02-05] MEDS: cefTRIAXone SODIUM 1,000 MG in DEXTROSE 5% 50 ML IV SCH (09:27)
[2021-02-05] MEDS: MAGNESIUM OXIDE 400 MG TAB PO SCH ×2 (09:27→21:19)
[2021-02-05] MEDS: LORazepam 1 MG/2 ML VIAL IV PRN ×2 (10:24→20:33)
[2021-02-05] MEDS ORDERED: LORazepam 2 MG/4 ML VIAL IV PRN ×2 (21:25→23:11)
[2021-02-05] MEDS ORDERED: LORazepam 1 MG/2 ML VIAL IV PRN (21:25)
[2021-02-05] MEDS ORDERED: LORazepam 3 MG/6 ML VIAL IV PRN ×2 (21:25→23:11)
[2021-02-05] MEDS ORDERED: ATIVAN IV ALCOHOL WITHDRAWL IV PRN ×2 (21:25→23:11)
[2021-02-06] MEDS: LACTATED RINGER'S 1,000 ML IV SCH (00:29)
[2021-02-06 04:17] VITALS: O2SAT 100
[2021-02-06] MEDS: LORazepam 1 MG/2 ML VIAL IV PRN ×2 (04:24→10:45)
[2021-02-06] MEDS: oxyCODONE HCL IR 5 MG TAB (IMMEDIATE RELEASE) PO PRN ×2 (04:29→10:25)
[2021-02-06] MEDS: chlordiazePOXIDE HCl 25 MG CAP PO SCH ×2 (05:50→13:17)
[2021-02-06 07:58] LABS: Hematocrit (blood only) 36.7 % (37-47); Hemoglobin 12.2 g/dL (12.0-16.0); Mean Corpuscular Hemoglobin 31.3 pg (25-34); Mean Corpuscular Hgb Conc 33.2 g/dL (32-36); Mean Corpuscular Volume 94.1 fL (80-100); Mean Platelet Volume 9.9 fL (7.4-10.4); Platelet Count 288 K/uL (130-400); RDW Coefficient of Variation 12.5 % (11.5-14.5); RDW Standard Deviation 42.7 fL (36.4-46.3); White Blood Count 6.49 K/uL (4.8-10.8)
[2021-02-06 08:36] LABS: Albumin Globulin Ratio 0.9 (0.9-2); BUN Creatinine Ratio 15.6 (10-20); Bilirubin,Total 0.5 mg/dl (0.2-1); Calcium 8.8 mg/dl (8.5-10.1); Creatinine Clr Calc Pharmacy 97.2 ml/min; Est GFR (African American) 129.1; Est GFR (Non-African American) 111.4; Globulin 3.2 gm/dl (2.5-4.0); Potassium 3.8 mmol/L (3.5-5.1); Total Protein 6.2 gm/dl (6.4-8.2)
[2021-02-06] MEDS: THIAMINE HCL 100 MG TAB PO SCH (09:00)
[2021-02-06] MEDS: FOLIC ACID 1 MG TAB PO SCH (09:00)
[2021-02-06] MEDS: MAGNESIUM OXIDE 400 MG TAB PO SCH (09:00)
[2021-02-06] MEDS: PANTOprazole 40 MG TAB PO SCH (09:00)
[2021-02-06] MEDS: FAMOTIDINE 20 MG in SYRINGE 3 ML IV SCH (09:00)
[2021-02-06] MEDS: cefTRIAXone SODIUM 1,000 MG in DEXTROSE 5% 50 ML IV SCH (09:04)
[2021-02-06 10:28] VITALS: TEMP 98.2
[2021-02-06 12:01] VITALS: BP 162/82; PULSE 72
--- NOTE | 2021-02-06 13:05 | Discharge Summary ---
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 She Has been admitted nearly monthly since May 2020 for this. Other PMHx of nonischemic cardiomyopathy (EF 55 to 60 TTE 2019), HTN, history pancreatic pseudocyst/necrosis status post endoscopic necrosectomy, narcotic addiction as per records, chronic anemia (baseline hemoglobin 10-11), alcohol abuse. Patient reports that she started drinking 1/5 of vodka daily 5 days ago, last drink she had was at 0730 this morning. She began having epigastric abdominal pain, nausea and had diarrhea twice last night which was black. Emesis is bilious, clear/yellow/green, denies coffee-ground emesis or bright red blood streaking in vomitus. She is asking for pain medication for her abdominal pain. Last week she went to outpatient rehab for alcohol rehab for the first time in [place], then 2 days later is when she began her alcohol binge. Her is also a heavy alcohol user, and so she finds it difficult to not drink especially if he is drinking something in front of her. One of her main weaknesses is when they go out to dinner and they order "just 1 drink". Her was also seen in the ER earlier today for alcohol use however he has been discharged home. They live together at home with 5 children, ages 16, 11, 6,4, 3 and 2. She reports having a strong support system at home to help with childcare including her parents and her 's grandparents. She is open to seeing a counselor or therapist as an outpatient, as well as outpatient versus inpatient rehab for alcohol use. Admission Exam Per Admitting Provider General: awake, alert, no apparent distress, + anxious Head: Normocephalic, atraumatic ENT: PERRL, EOMI, no pharyngeal exudate, mucous membranes moist Chest: Clear to auscultation, on room air, no adventitious breath sounds Cardiac: + Sinus tachycardic with HR in the 150s to 160s at bedside throughout exam, visible heart beat through chest wall, no murmur, no JVD, normal peripheral pulses, good capillary refill Abdominal: NABS x 4 quadrants, soft, nondistended, + epigastric tenderness to palpation, no rebound or guarding Extremities: Normal inspection, no peripheral edema or erythema, calfs nontender to palpation Psych: Normal mood and affect Neuro: AAO x 3, strength intact bilaterally and rated 5/5, no motor deficits, speech is clear, no peripheral sensory deficits Principal Diagnosis Acute alcoholic pancreatitis Alcohol withdrawal syndrome Alcohol intoxication Alcohol abuse E. coli UTI Pancreatic pseudocyst History of narcotic addiction Anxiety Discharge Exam CONSTITUTIONAL: WNWD, vitals stable, generally well-appearing, not anxious or tremulous, no pressured speech. EYES: normal conjunctivae, no scleral icterus ENT: external ear and nose normal, MMM RESPIRATORY: clear to auscultation bilaterally, no crackles, rales or wheezes, normal respiratory effort CARDIOVASCULAR: regular rate and rhythm, S1 and 2 heard without murmurs, gallops or rubs, no JVD, no peripheral edema GASTROINTESTINAL: soft, TTP in epigastric area, nondistended. MUSCULOSKELETAL: strength 5/5 throughout, head is normocephalic and atraumatic SKIN: warm and dry NEUROLOGIC: No facial palsy, no dysarthria. CN 2-12 grossly intact, normal cognition, normal speech, no tremor, no gross focal deficits. PSYCHIATRIC: alert cooperative and oriented to person, place and time. Discharge Data Allergies Allergy/AdvReac Type Severity Reaction Status Date / Time tramadol Allergy Severe Seizure Verified 02/03/21 15:11 gabapentin Allergy Intermediate Hallucinati Verified 02/03/21 15:11 ng ketorolac [From Toradol] Allergy Mild shaky, Verified 02/03/21 15:11 dizzy, uneasy feeling Consultations 02/03/21 18:05 ED Decision to Admit Stat Ordered Studies Laboratory Results WBC 6.49 K/uL (4.8-10.8) 02/06/21 07:19 RBC 3.90 M/uL (4.2-5.4) L 02/06/21 07:19 Hgb 12.2 g/dL (12.0-16.0) 02/06/21 07:19 Hct 36.7 % (37-47) L 02/06/21 07:19 MCV 94.1 fL (80-100) 02/06/21 07:19 MCH 31.3 pg (25-34) 02/06/21 07:19 MCHC 33.2 g/dL (32-36) 02/06/21 07:19 RDW Std Deviation 42.7 fL (36.4-46.3) 02/06/21 07:19 RDW Coeff of Hanna 12.5 % (11.5-14.5) 02/06/21 07:19 Plt Count 288 K/uL (130-400) 02/06/21 07:19 MPV 9.9 fL (7.4-10.4) 02/06/21 07:19 Immature Gran % (Auto) 0.3 % 02/03/21 13:56 Neut % (Auto) 63.8 % 02/03/21 13:56 Lymph % (Auto) 31.4 % 02/03/21 13:56 Ballard % (Auto) 3.7 % 02/03/21 13:56 Eos % (Auto) 0.1 % 02/03/21 13:56 Baso % (Auto) 0.7 % 02/03/21 13:56 Neut # (Auto) 4.65 K/uL (1.4-6.5) 02/03/21 13:56 Lymph # (Auto) 2.29 K/uL (1.2-3.4) 02/03/21 13:56 Ballard # (Auto) 0.27 K/uL (0.11-0.59) 02/03/21 13:56 Eos # (Auto) 0.01 K/uL (0-0.5) 02/03/21 13:56 Baso # (Auto) 0.05 K/uL (0-0.2) 02/03/21 13:56 Immature Gran # (Auto) 0.02 K/uL (0.00-0.02) 02/03/21 13:56 PT 10.2 Seconds (9.0-12.0) 02/03/21 13:56 INR 1.0 (0.9-1.1) 02/03/21 13:56 Sodium 139 mmol/L (136-145) 02/06/21 07:19 Potassium 3.8 mmol/L (3.5-5.1) 02/06/21 07:19 Chloride 107 mmol/L (98-107) 02/06/21 07:19 Carbon Dioxide 28 mmol/L (21-32) 02/06/21 07:19 Anion Gap 4.0 (3-11) 02/06/21 07:19 BUN 10 mg/dl (7-18) D 02/06/21 07:19 Creatinine 0.63 mg/dl (0.6-1.2) 02/06/21 07:19 Est Cr Clr Drug Dosing 97.2 ml/min 02/06/21 07:19 Est GFR ( Amer) 129.1 02/06/21 07:19 Est GFR (Non-Af Amer) 111.4 02/06/21 07:19 BUN/Creatinine Ratio 15.6 (10-20) 02/06/21 07:19 Glucose 108 mg/dl (70-99) H 02/06/21 07:19 Lactate 1.4 mmol/L (0.4-2.0) 02/05/21 13:36 Calcium 8.8 mg/dl (8.5-10.1) 02/06/21 07:19 Phosphorus 3.1 mg/dl (2.5-4.9) 02/05/21 07:02 Magnesium 1.8 mg/dl (1.8-2.4) 02/05/21 07:02 Total Bilirubin 0.5 mg/dl (0.2-1) 02/06/21 07:19 Direct Bilirubin 0.5 mg/dl (0-0.2) H 02/04/21 06:47 AST 26 U/L (15-37) 02/06/21 07:19 ALT 35 U/L (12-78) 02/06/21 07:19 Alkaline Phosphatase 95 U/L (45-117) 02/06/21 07:19 Troponin I 0.022 ng/ml (0-0.045) 02/03/21 13:56 Total Protein 6.2 gm/dl (6.4-8.2) L 02/06/21 07:19 Albumin 3.0 gm/dl (3.4-5.0) L 02/06/21 07:19 Globulin 3.2 gm/dl (2.5-4.0) 02/06/21 07:19 Albumin/Globulin Ratio 0.9 (0.9-2) 02/06/21 07:19 Lipase 51 U/L (73-393) L 02/03/21 13:56 HCG, Qual Negative (Negative) 02/03/21 13:56 Urine Color Yellow 04/18/21 14:29 Urine Appearance Clear (Clear) 02/03/21 14:29 Urine pH 6.0 (4.5-7.5) 02/03/21 14:29 Ur Specific [place] 1.012 (1.000-1.030) 02/03/21 14:29 Urine Protein Negative (Negative) 02/03/21 14:29 Urine Glucose (UA) Negative (Negative) 02/03/21 14:29 Urine Ketones Negative (Negative) 02/03/21 14:29 Urine Blood 1+ (Negative) H 02/03/21 14:29 Urine Nitrite Negative (Negative) 02/03/21 14: Urine Bilirubin Negative (Negative) 02/03/21 14:29 Urine Urobilinogen Negative (Negative) 02/03/21 14:29 Ur Leukocyte Esterase 2+ (Negative) H 02/03/21 14:29 Urine WBC (Auto) >30 /hpf (0-5) H 02/03/21 14:29 Urine RBC (Auto) 0-4 /hpf (0-4) 02/03/21 14:29 U Hyaline Cast (Auto) 1-5 /lpf (0-5) 02/03/21 14:29 U Epithel Cells (Auto) 5-10 /lpf (0-5) H 02/03/21 14:29 Urine Bacteria (Auto) 4+ (Negative) H 02/03/21 14:29 Urine Opiates Screen Neg (Neg) 02/03/21 14:29 Ur Methadone, Qual Neg (Neg) 02/03/21 14:29 Urine Barbiturates Neg (Neg) 02/03/21 14:29 Ur Phencyclidine (PCP) Neg (Neg) 02/03/21 14:29 U Amphetamin/Meth Scrn Neg (Neg) 02/03/21 14:29 MDMA (Ecstasy) Screen Neg (Neg) 02/03/21 14:29 U Benzodiazepines Scrn Neg (Neg) 02/03/21 14:29 Ur Cocaine Metabolite Neg (Neg) 02/03/21 14:29 U Marijuana (THC) Screen Neg (Neg) 02/03/21 14:29 Ethyl Alcohol mg/dL 251.3 mg/dl (0-3) H 02/03/21 13:56 COVID-19 Eval Order CovFluRsv at [facility] 02/03/21 18:47 SARS-CoV-2 (PCR) NEGATIVE (Negative) 02/03/21 18:47 Influenza Type A (PCR) Negative (Neg) 02/03/21 18:47 Influenza Type B (PCR) Negative (Neg) 02/03/21 18:47 RSV (RT-PCR) Negative (Neg) 02/03/21 18:47 Impressions Chest X-Ray 02/03/21 13:43 XR chest 1V portable CLINICAL HISTORY: Atypical chest pain COMPARISON STUDY: 12/31/2020 FINDINGS: The cardiac and mediastinal contours are normal. There is no evidence of focal pulmonary consolidation. There is no evidence of failure. No pleural effusions are visualized.[ IMPRESSION: No active disease in the chest. ACT 112: Negative or not required by law. Electronically signed by: Andrade Singh M.D. 02/03/2021 1:57 PM Hospital Course (1) Acute alcoholic pancreatitis: (2) Alcohol withdrawal syndrome: (3) Alcoholic intoxication: (4) Alcohol abuse: (5) E. 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 She is frequently admitted to this hospital for these issues. She has a history of pancreatic pseudocyst/necrosis status post endoscopic necrosectomy and also has narcotic addiction per records. She reports intermittent sobriety that will last period of several weeks at a time on arrival she had epigastric pain nausea diarrhea and emesis that was bilious in description. She reportedly went to outpatient rehab for alcoholism in [place] just prior to arrival, and reports is an heavy alcohol user, also. They live together at home with their 5 children. She was admitted to the hospitalist service and started on intravenous fluids and electrolyte replacement therapy. She was given daily thiamine and folic acid and started on Librium taper. Out of initial concern for a urinary tract infection Rocephin was empirically started. E coli was found and she was transitioned to cefdinir at discharge. She was given Roxicodone for pain management while hospitalized. She admits to significant anxiety and depression underlying her addiction and we discussed the importance of cognitive behavioral therapy and talk therapy. She was very keen on continuing Librium for anxiety. At time of discharge she was requesting to go home despite some residual epigastric tenderness especially with food intake. She was tolerating p.o. and mentating and ambulating at baseline. She had no gross neurologic deficits and physical exam was otherwise unremarkable except for some slight epigastric tenderness. Abdomen was otherwise soft nondistended without evidence of guarding. Although inpatient rehabilitation was recommended immediately following discharge, she declined, preferring outpatient therapy instead. She was sent home in stable condition with close primary care follow- up recommended. Total Time Total Time Spent Total Time Spent (In Minutes): 60 Total Time Includes: Examination of the Patient, Discharge Planning, Medication Reconciliation and Communication With Other Providers Discharge Plan Discharge Items Patient Disposition: Home - Self-Care Reason For Visit: ACUTE ALCOHOL WITHDRAWAL Discharge Diagnosis: Acute alcoholic pancreatitis Alcohol withdrawal syndrome Alcohol intoxication Alcohol abuse E. coli UTI Pancreatic pseudocyst History of narcotic addiction Anxiety Condition on Discharge: Good Activity: Resume your previous activity Non-emergency contact: Primary Care Provider Call non-emergency contact if: you have any medication questions, your symptoms worsen and your pain is not controlled Follow-up/Referrals: Marianela Arroyo MD [Outside Practitioners] - (Date & Time 02/12/2021 10:20 AM Provider Marianela Arroyo MD [facility] ) Diet: Regular Addtl Attending Provider Instructions: Please take all medications as instructed on discharge list below. It is recommended that you follow-up with your primary care physician within one week of this hospital stay. This is to ensure you are doing well in your sobriety, and have access to resources to help you maintain your sobriety, as well as to monitor your abdominal symptoms and ensure things have cleared up since you went home. It was a pleasure taking care of you! Please call if you have any questions or problems. You can reach a [facility] hospitalist on duty at [facility] 24 hours a day by calling [phone]. Take care of yourself. Sandy Degroot, DO [facility] Hospitalist Pending Studies at Discharge: No Stand-Alone Forms: My [facility] Medications and DC Order Prescriptions: New cefdinir 300 mg capsule 300 mg PO BID Qty: 8 RF: 0 Discharge Orders: Discharge Order (Routine); Ordered 02/06/21 Ordered By: Sandy Degroot Admission Data Admit Date/Time: 02/03/21 18:42 Attending Provider: Sandy Degroot Admit Provider: Paulino Higginbotham Primary Care Provider: PCP,NO Other Providers: Elisha Green I. Other Interventions: Discharge Summary Assessment (RN) Last Done: 02/06/21 12:00
== END 2021-02-06 14:22 | disposition home or self-care (01) | DRG 897 ==
LOC: ED 13:07 → SUATTDRO 18:42 → 2S 18:42 → 2N 02-05 13:24